=== PATIENT | male | born 1960 | race Caucasian/White ===

== ENCOUNTER 2020-10-22 13:41 | Inpatient (IN) | payer OTHER ==
[2020-10-22] MEDS ORDERED: LORazepam 2 MG/ML INJ IV STA (14:14)
--- NOTE | 2020-10-22 14:24 | ED ---
General Adult HPI - General Chief complaint: Shortness of Breath Stated complaint: Chest Pain/SOB Time Seen by Provider: 10/22/20 13:55 Source: patient, RN notes reviewed, old records reviewed Mode of arrival: wheelchair Limitations: no limitations - History of Present Illness Initial comments: This is a 60-year-old male who presents to the emergency department stating that he has a history of anxiety and he ran out of his Xanax 5 days ago. Patient s tates today he had a panic attack and thought it was 7 difficulty breathing. Patient states he feels much better now that he is calm down. Patient states she's had 5 Shabbir sign the last 5 years and this is what his butt on his anxiety. Patient states he drinks about a pint of vodka a day and a few beers according to him and his . Patient denies any chest pain patient denies palpitations patient denies any recent fever chills or cough per patient denies abdominal pain patient has nausea vomiting diarrhea. - Related Data Home Medications Medication Instructions Recorded Confirmed ALPRAZolam [Xanax] 0.25 mg PO TID 10/22/20 10/22/20 Citalopram Hydrobromide [CeleXA] 20 mg PO DAILY 10/22/20 10/22/20 HYDROcodone/APAP 7.5-325MG [[place] 1 tab PO QID 10/22/20 10/22/20 7.5-325] Kratom 2 tab PO DAILY PRN 10/22/20 10/22/20 Previous Rx's Medication Instructions Recorded QUEtiapine [SEROquel] 50 mg PO HS #30 tab 07/12/16 Allergies Allergy/AdvReac Type Severity Reaction Status Date / Time No Known Allergies Allergy Verified 10/22/20 14:58 Review of Systems ROS Statement: Those systems with pertinent positive or pertinent negative responses have been documented in the HPI. ROS Other: All systems not noted in ROS Statement are negative. Past Medical History Past Medical History: Musculoskeletal Disorder Additional Past Medical History / Comment(s): alcoholism, chronic low back pain- herniated discs and scoliosis, bilateral shoulder pain History of Any Multi-Drug Resistant Organisms: None Reported Past Surgical History: Orthopedic Surgery Additional Past Surgical History / Comment(s): R ankle fx with surgical repair- pin in and out, back injections at [facility]. Past Anesthesia/Blood Transfusion Reactions: No Reported Reaction Additional Past Anesthesia/Blood Transfusion Reaction / Comment(s): Pt has never received blood. Past Psychological History: Anxiety, Depression Smoking Status: Never smoker Past Alcohol Use History: Daily, Heavy Past Drug Use History: None Reported - Past Family History Father Family Medical History: No Reported History Additional Family Medical History / Comment(s): Father is 86yrs old and healthy Mother Family Medical History: Cancer Additional Family Medical History / Comment(s): Mother at age 64yrs of pancreatic cancer. General Exam - General Exam Comments Initial Comments: GENERAL: Patient is well-developed and well-nourished. Patient is nontoxic and well- hydrated and is in mild distress. ENT: Neck is soft and supple. No significant lymphadenopathy is noted. Oropharynx is clear. Moist mucous membranes. Neck has full range of motion without eliciting any pain. EYES: The sclera were anicteric and conjunctiva were pink and moist. Extraocular movements were intact and pupils were equal round and reactive to light. Eyelids were unremarkable. PULMONARY: Unlabored respirations. Good breath sounds bilaterally. No audible rales rhonchi or wheezing was noted. CARDIOVASCULAR: There is a regular rate and rhythm without any murmurs gallops or rubs. ABDOMEN: Soft and nontender with normal bowel sounds. SKIN: Skin is clear with no lesions or rashes and otherwise unremarkable. NEUROLOGIC: Patient is alert and oriented x3. Cranial nerves II through XII are grossly intact. Motor and sensory are also intact. Normal speech, volume and content. Symmetrical smile. MUSCULOSKELETAL: Normal extremities with adequate strength and full range of motion. No lower extremity swelling or edema. No calf tenderness. LYMPHATICS: No significant lymphadenopathy is noted PSYCHIATRIC: Patient is mildly anxious Limitations: no limitations Course Vital Signs 10/22/20 13:53 Temperature 98.8 F Pulse Rate 86 Respiratory 20 Rate Blood Pressure 136/95 O2 Sat by Pulse 96 Oximetry Medical Decision Making - Medical Decision Making EKG shows normal sinus rhythm at 81 bpm SD interval 266 dresses 96 QT interval 392 QTC is 455 per patient's EKG shows no ST segment elevation or depression. Patient's alcohol came back at a very high level and so I spoke with the family himself and Dr. Wheat everybody's agreement. The patient overnight and try to find a rehab facility for tomorrow. Chest x-ray shows no acute abnormality. Jarret accept the patient admitted the patient wrote admitting orders - Lab Data Result diagrams: 10/22/20 14:25 10/22/20 14:25 Lab Results 10/22/20 10/22/20 Range/Units 14:25 14:25 WBC 6.0 (3.8-10.6) k/uL RBC 4.89 (4.30-5.90) m/uL Hgb 15.8 (13.0-17.5) gm/dL Hct 46.5 (39.0-53.0) % MCV 95.1 (80.0-100.0) fL MCH 32.4 (25.0-35.0) pg MCHC 34.1 (31.0-37.0) g/dL RDW 14.6 (11.5-15.5) % Plt Count 201 (150-450) k/uL MPV 6.6 Neutrophils % 61 % Lymphocytes % 29 % Monocytes % 6 % Eosinophils % 0 % Basophils % 0 % Neutrophils # 3.7 (1.3-7.7) k/uL Lymphocytes # 1.8 (1.0-4.8) k/uL Monocytes # 0.4 (0-1.0) k/uL Eosinophils # 0.0 (0-0.7) k/uL Basophils # 0.0 (0-0.2) k/uL Sodium 144 (137-145) mmol/L Potassium 4.2 (3.5-5.1) mmol/L Chloride 105 (98-107) mmol/L Carbon Dioxide 22 (22-30) mmol/L Anion Gap 17 mmol/L BUN 15 (9-20) mg/dL Creatinine 0.77 (0.66-1.25) mg/dL Est GFR (CKD-EPI)AfAm >90 (>60 ml/min/1.73 sqM) Est GFR (CKD-EPI)NonAf >90 (>60 ml/min/1.73 sqM) Glucose 101 H (74-99) mg/dL Calcium 9.2 (8.4-10.2) mg/dL Total Bilirubin 0.6 (0.2-1.3) mg/dL AST 37 (17-59) U/L ALT 17 (4-49) U/L Alkaline Phosphatase 74 (38-126) U/L Total Protein 8.3 H (6.3-8.2) g/dL Albumin 4.6 (3.5-5.0) g/dL Serum Alcohol 324 H* mg/dL Disposition Clinical Impression: Alcohol intoxication Disposition: ADMITTED IP TO THIS HOSP Referrals: Ruperto Wheat MD [Primary Care Provider] - 1-2 days Time of Disposition: 15:19
[2020-10-22 14:33] LABS: Basophils % (A) 0 %; Eosinophils % (A) 0 %; HCT 46.5 % (39.0-53.0); HGB 15.8 gm/dL (13.0-17.5); Lymphocytes # (A) 1.8 k/uL (1.0-4.8); Lymphocytes % (A) 29 %; MCH 32.4 pg (25.0-35.0); MCHC 34.1 g/dL (31.0-37.0); MCV 95.1 fL (80.0-100.0); Mean Platelet Volume 6.6; Monocytes # (A) 0.4 k/uL (0-1.0); Monocytes % (A) 6 %; Neutrophils # (A) 3.7 k/uL (1.3-7.7); Neutrophils % (A) 61 %; Platelet Count 201 k/uL (150-450); RBC 4.89 m/uL (4.30-5.90); RDW 14.6 % (11.5-15.5)
--- NOTE | 2020-10-22 14:33 | XR ---
EXAMINATION TYPE: XR chest 2V DATE OF EXAM: 10/22/2020 COMPARISON: NONE HISTORY: JANY and chronic cough. TECHNIQUE: Frontal and lateral views of the chest are obtained. FINDINGS: There is reticular interstitial changes bilaterally. No pleural effusion or pneumothorax seen. The cardiac silhouette size is within normal limits. The osseous structures are intact. IMPRESSION: As above. Findings favor chronic parenchymal fibrotic changes. Areas of acute infiltrate difficult to entirely exclude in the lung bases. Correlation with old outside chest x-ray would be e xtremely beneficial.
[2020-10-22 14:42] LABS: ALT 17 U/L (4-49); AST 37 U/L (17-59); African American GFR (CKD) >90 (>60 ml/min/1.73 sqM); Albumin 4.6 g/dL (3.5-5.0); Alkaline Phosphatase 74 U/L (38-126); Blood Urea Nitrogen 15 mg/dL (9-20); Calcium 9.2 mg/dL (8.4-10.2); Carbon Dioxide 22 mmol/L (22-30); Chloride 105 mmol/L (98-107); Glucose 101 mg/dL (74-99); Non-African American GFR(CKD) >90 (>60 ml/min/1.73 sqM); Total Bilirubin 0.6 mg/dL (0.2-1.3); Total Protein 8.3 g/dL (6.3-8.2)
[2020-10-22 14:52] LABS: Potassium 4.2 mmol/L (3.5-5.1)
[2020-10-22 15:03] LABS: Alcohol 324 mg/dL
[2020-10-22 15:08] LABS: Anion Gap 17 mmol/L; Sodium 144 mmol/L (137-145)
[2020-10-22] MEDS ORDERED: SODIUM CHLORIDE 0.9% 1,000 ML IV STA (15:18)
[2020-10-22] MEDS ORDERED: LORazepam 2 MG/ML INJ IV PRN (15:20)
[2020-10-22] MEDS ORDERED: THIAMINE 100 MG/ML 2 ML VIAL IM STA (15:20)
[2020-10-22] MEDS: LORazepam 2 MG/ML INJ IV PRN ×4 (15:55→22:31)
[2020-10-22] MEDS: SODIUM CHLORIDE 0.9% 1,000 ML IV ONE ×2 (15:59→16:46)
[2020-10-22] MEDS: THIAMINE 100 MG TAB PO SCH (17:35)
[2020-10-22 18:06] LABS: Basophils % (A) 1 %; Eosinophils % (A) 1 %; HCT 40.7 % (39.0-53.0); HGB 14.3 gm/dL (13.0-17.5); Lymphocytes # (A) 1.8 k/uL (1.0-4.8); Lymphocytes % (A) 30 %; MCH 33.5 pg (25.0-35.0); MCHC 35.1 g/dL (31.0-37.0); MCV 95.5 fL (80.0-100.0); Mean Platelet Volume 6.7; Monocytes # (A) 0.3 k/uL (0-1.0); Monocytes % (A) 6 %; Neutrophils # (A) 3.5 k/uL (1.3-7.7); Neutrophils % (A) 60 %; Platelet Count 162 k/uL (150-450); RBC 4.26 m/uL (4.30-5.90); RDW 14.3 % (11.5-15.5); WBC 5.8 k/uL (3.8-10.6)
[2020-10-23] MEDS: LORazepam 2 MG/ML INJ IV PRN ×8 (01:00→21:29)
[2020-10-23 07:04] LABS: HCT 41.3 % (39.0-53.0); HGB 14.1 gm/dL (13.0-17.5); MCH 32.9 pg (25.0-35.0); MCHC 34.1 g/dL (31.0-37.0); MCV 96.6 fL (80.0-100.0); Mean Platelet Volume 6.7; Platelet Count 190 k/uL (150-450); RBC 4.28 m/uL (4.30-5.90); RDW 14.2 % (11.5-15.5)
[2020-10-23] MEDS: THIAMINE 100 MG TAB PO SCH ×2 (08:13→17:36)
[2020-10-23] MEDS: chlordiazePOXIDE 25 MG CAP PO SCH ×3 (10:43→21:22)
[2020-10-23 14:48] VITALS: BMI 23.4
[2020-10-23] MEDS: METOPROLOL TARTRATE 50 MG TAB PO SCH (23:01)
[2020-10-24] MEDS: LORazepam 2 MG/ML INJ IV PRN ×8 (00:14→22:11)
[2020-10-24] MEDS: chlordiazePOXIDE 25 MG CAP PO SCH ×3 (07:54→21:12)
[2020-10-24] MEDS: METOPROLOL TARTRATE 50 MG TAB PO SCH (07:54)
[2020-10-24] MEDS: THIAMINE 100 MG TAB PO SCH ×2 (07:54→16:17)
--- NOTE | 2020-10-24 08:14 | P.PN ---
Subjective Principal diagnosis: Alcohol withdrawal The patient is continuing to need Librium and Ativan for alcohol withdrawal. We have given him the appropriate information to call [facility]. Objective - Vital Signs Vital signs: Vital Signs Temp 97.7 F 10/24/20 04:29 Pulse 75 10/24/20 04:29 Resp 18 10/24/20 04:29 BP 163/99 10/24/20 04:29 Pulse Ox 97 10/24/20 04:29 Intake & Output 10/23/20 10/24/20 10/24/20 18:59 06:59 18:59 Intake Total 350 Output Total 675 Balance -675 350 Weight 69.853 kg Intake: Oral 350 Output: Urine 675 Other: Voiding Method Urinal # Voids 1 - Constitutional General appearance: Present: average body habitus - EENT Eyes: Absent: abnormal pupil - Neck Neck: Absent: lymphadenopathy - Cardiovascular Rhythm: regular Heart sounds: normal: S1, S2 Abnormal Heart Sounds: Absent: S3 Gallop - Gastrointestinal General gastrointestinal: Present: soft. Absent: tenderness - Labs CBC & Chem 7: 10/23/20 06:30 10/22/20 14:25 Assessment and Plan (1) Opiate dependence Current Visit: Yes Status: Acute Code(s): F11.20 - OPIOID DEPENDENCE, UNCOMPLICATED SNOMED Code(s): 89566728 (2) Alcoholic intoxication Current Visit: Yes Status: Acute Code(s): F10.129 - ALCOHOL ABUSE WITH INTOXICATION, UNSPECIFIED SNOMED Code(s): 12060117 (3) Alcohol abuse Current Visit: No Status: Acute Code(s): F10.10 - ALCOHOL ABUSE, UNCOMPLIC ATED SNOMED Code(s): 65458973 (4) Alcohol withdrawal Current Visit: No Status: Acute Code(s): F10.239 - ALCOHOL DEPENDENCE WITH WITHDRAWAL, UNSPECIFIED SNOMED Code(s): 805470409 (5) Depression Current Visit: No Status: Acute Code(s): F32.9 - MAJOR DEPRESSIVE DISORDER, SINGLE EPISODE, UNSPECIFIED SNOMED Code(s): 84633367 Plan: Placed on appropriate withdrawal protocol. Supplement with B12 and folate. Fluid hydration. Possible transfer to inpatient alcoholic rehab. Consult discharge planning.
--- NOTE | 2020-10-24 08:16 | P.PN ---
Subjective Principal diagnosis: Alcohol withdrawal The patient is continuing to need Librium and Ativan for alcohol withdrawal. We have given him the appropriate information to call [place]. Objective - Vital Signs Vital signs: Vital Signs Temp 97.7 F 10/24/20 04:29 Pulse 75 10/24/20 04:29 Resp 18 10/24/20 04:29 BP 163/99 10/24/20 04:29 Pulse Ox 97 10/24/20 04:29 Intake & Output 10/23/20 10/24/20 10/24/20 18:59 06:59 18:59 Intake Total 350 Output Total 675 Balance -675 350 Weight 69.853 kg Intake: Oral 350 Output: Urine 675 Other: Voiding Method Urinal # Voids 1 - Constitutional General appearance: Present: average body habitus - EENT Eyes: Absent: abnormal pupil - Neck Neck: Absent: lymphadenopathy - Respiratory Respiratory: bilateral: CTA - Cardiovascular Rhythm: regular Abnormal Heart Sounds: Absent: S3 Gallop - Gastrointestinal General gastrointestinal: Present: soft. Absent: tenderness - Labs CBC & Chem 7: 10/23/20 06:30 10/22/20 14:25 Assessment and Plan (1) Opiate dependence Current Visit: Yes Status: Acute Code(s): F11.20 - OPIOID DEPENDENCE, U NCOMPLICATED SNOMED Code(s): 08209309 (2) Alcoholic intoxication Current Visit: Yes Status: Acute Code(s): F10.129 - ALCOHOL ABUSE WITH INTOXICATION, UNSPECIFIED SNOMED Code(s): 74863964 (3) Alcohol abuse Current Visit: No Status: Acute Code(s): F10.10 - ALCOHOL ABUSE, UNCOMPLICATED SNOMED Code(s): 41161977 (4) Alcohol withdrawal Current Visit: No Status: Acute Code(s): F10.239 - ALCOHOL DEPENDENCE WITH WITHDRAWAL, UNSPECIFIED SNOMED Code(s): 045465985 (5) Depression Current Visit: No Status: Acute Code(s): F32.9 - MAJOR DEPRESSIVE DISORDER, SINGLE EPISODE, UNSPECIFIED SNOMED Code(s): 37738383 Plan: Placed on appropriate withdrawal protocol. Supplement with B12 and folate. Fluid hydration. Possible transfer to inpatient alcoholic rehab. Consult discharge planning. Time with Patient: Less than 30
[2020-10-24] MEDS: cloNIDine HCL 0.1 MG TAB PO SCH ×2 (08:44→21:13)
[2020-10-24] MEDS: CITALOPRAM HYDROBROMIDE 20 MG TAB PO SCH (08:45)
[2020-10-24] MEDS: DILTIAZEM CD 180 MG CAP.ER.24H PO SCH (08:45)
[2020-10-24 19:56] LABS: Glucose,Whole Blood 134 mg/dL (75-99)
[2020-10-25] MEDS: LORazepam 2 MG/ML INJ IV PRN ×8 (00:40→23:57)
[2020-10-25] MEDS: THIAMINE 100 MG TAB PO SCH ×2 (07:19→16:50)
[2020-10-25] MEDS: chlordiazePOXIDE 25 MG CAP PO SCH ×3 (08:24→23:04)
[2020-10-25] MEDS: cloNIDine HCL 0.1 MG TAB PO SCH ×2 (08:25→23:04)
[2020-10-25] MEDS: DILTIAZEM CD 180 MG CAP.ER.24H PO SCH (08:25)
[2020-10-25] MEDS: CITALOPRAM HYDROBROMIDE 20 MG TAB PO SCH (08:25)
--- NOTE | 2020-10-25 11:19 | P.PN ---
Subjective She still having withdrawal symptoms does have some confusion unsure whether this is acute or chronic. Constitutional: Denied any fatigue denied any fever. Cardio vascular: denied any chest pain, palpitations Gastrointestinal denied any nausea vomiting Pulmonary: Denied any shortness of breath cough Neurologic denied any new focal deficits All inpatient medications were reviewed and appropriate changes in these medications as dictated in the interval history and assessment and plan. Objective - Vital Signs Vital signs: Vital Signs Temp 97.9 F 10/25/20 04:36 Pulse 78 10/25/20 04:36 Resp 12 10/25/20 04:36 BP 122/78 10/25/20 04:36 Pulse Ox 98 10/25/20 04:36 Intake & Output 10/24/20 10/25/20 10/25/20 18:59 06:59 18:59 Output Total 4 0 Balance -4 0 Output: Urine 4 Stool 0 Other: Voiding Method Urinal Urinal # Voids 1 # Bowel Movements 1 - Exam PHYSICAL EXAMINATION: GENERAL: The patient is alert and oriented x3, not in any acute distress. Patient does have significant tremor. HEENT: Pupils are round and equally reacting to light. EOMI. No scleral icterus. No conjunctival pallor. Normocephalic, atraumatic. No pharyngeal erythema. No thyromegaly. CARDIOVASCULAR: S1 and S2 present. No murmurs, rubs, or gallops. PULMONARY: Chest is clear to auscultation, no wheezing or crackles. ABDOMEN: Soft, nontender, nondistended, normoactive bowel sounds. No palpable organomegaly. MUSCULOSKELETAL: No joint swelling or deformity. EXTREMITIES: No cyanosis, clubbing, or pedal edema. NEUROLOGICAL: Gross neurological examination did not reveal any focal deficits. SKIN: No rashes. - Labs CBC & Chem 7: 10/23/20 06:30 10/22/20 14:25 Labs: Abnormal Lab Results - Last 24 Hours (Table) 10/24/20 Range/Units 19:51 POC Glucose (mg/dL) 134 H (75-99) mg/dL Assessment and Plan Plan: -All call intoxication, alcohol abuse: Patient is on all call withdrawal precautions at this time patient is still having significant withdrawals -Opiate dependence -Depression 5. Gastroesophageal reflux disease
[2020-10-25] MEDS: FAMOTIDINE 20 MG TAB PO SCH (20:47)
[2020-10-26] MEDS: LORazepam 2 MG/ML INJ IV PRN ×7 (03:50→23:27)
[2020-10-26] MEDS: THIAMINE 100 MG TAB PO SCH ×2 (07:12→16:48)
[2020-10-26] MEDS: CITALOPRAM HYDROBROMIDE 20 MG TAB PO SCH (08:55)
[2020-10-26] MEDS: FAMOTIDINE 20 MG TAB PO SCH ×2 (08:55→21:08)
[2020-10-26] MEDS: DILTIAZEM CD 180 MG CAP.ER.24H PO SCH (08:56)
[2020-10-26] MEDS: chlordiazePOXIDE 25 MG CAP PO SCH ×3 (08:56→21:29)
[2020-10-26] MEDS: cloNIDine HCL 0.1 MG TAB PO SCH ×2 (08:56→21:08)
--- NOTE | 2020-10-26 13:40 | P.PN ---
Subjective She still having withdrawal symptoms does have some confusion unsure whether this is acute or chronic. 10/26/2020 Patient is still requiring Ativan every 4 hours minimal to be monitored for 1 more night possibility of discharge tomorrow. Constitutional: Denied any fatigue denied any fever. Cardio vascular: denied any chest pain, palpitations Gastrointestinal denied any nausea vomiting Pulmonary: Denied any shortness of breath cough Neurologic denied any new focal deficits All inpatient medications were reviewed and appropriate changes in these medications as dictated in the interval history and assessment and plan. Objective - Vital Signs Vital signs: Vital Signs Temp 97.8 F 10/26/20 05:51 Pulse 78 10/26/20 05:51 Resp 16 10/26/20 05:51 BP 107/70 10/26/20 05:51 Pulse Ox 96 10/26/20 05:51 Intake & Output 10/25/20 10/26/20 10/26/20 18:59 06:59 18:59 Intake Total 200 240 Output Total 0 0 Balance 0 200 240 Intake: Oral 200 240 Output: Stool 0 0 Other: Voiding Method Urinal Urinal Urinal # Voids 2 2 - Exam PHYSICAL EXAMINATION: GENERAL: The patient is alert and oriented x3, not in any acute distress. Patient does have significant tremor. HEENT: Pupils are round and equally reacting to light. EOMI. No scleral icterus. No conjunctival pallor. Normocephalic, atraumatic. No pharyngeal erythema. No thyromegaly. CARDIOVASCULAR: S1 and S2 present. No murmurs, rubs, or gallops. PULMONARY: Chest is clear to auscultation, no wheezing or crackles. ABDOMEN: Soft, nontender, nondistended, normoactive bowel sounds. No palpable organomegaly. MUSCULOSKELETAL: No joint swelling or deformity. EXTREMITIES: No cyanosis, clubbing, or pedal edema. NEUROLOGICAL: Gross neurological examination did not reveal any focal deficits. SKIN: No rashes. - Labs CBC & Chem 7: 10/23/20 06:30 10/22/20 14:25 Assessment and Plan Plan: -All call intoxication, alcohol abuse: Patient is on alcohol withdrawal precautions at this time patient is still having significant withdrawals -Opiate dependence -Depression 5. Gastroesophageal reflux disease
[2020-10-27] MEDS: LORazepam 2 MG/ML INJ IV PRN ×3 (02:40→12:48)
[2020-10-27] MEDS: chlordiazePOXIDE 25 MG CAP PO SCH ×3 (07:57→20:01)
[2020-10-27] MEDS: CITALOPRAM HYDROBROMIDE 20 MG TAB PO SCH (07:57)
[2020-10-27] MEDS: FAMOTIDINE 20 MG TAB PO SCH ×2 (07:57→20:01)
[2020-10-27] MEDS: DILTIAZEM CD 180 MG CAP.ER.24H PO SCH (07:57)
[2020-10-27] MEDS: THIAMINE 100 MG TAB PO SCH ×2 (07:57→17:09)
[2020-10-27] MEDS: cloNIDine HCL 0.1 MG TAB PO SCH ×2 (07:58→20:01)
--- NOTE | 2020-10-27 08:24 | P.PN ---
Subjective Principal diagnosis: Alcohol withdrawal The patient is here for alcohol withdrawal. He still has some tremors. We will hold Ativan and see how he does. He continues to be on Librium. Objective - Vital Signs Vital signs: Vital Signs Temp 97.9 F 10/27/20 04:24 Pulse 79 10/27/20 04:24 Resp 18 10/27/20 04:24 BP 113/78 10/27/20 04:24 Pulse Ox 98 10/27/20 04:24 Intake & Output 10/26/20 10/27/20 10/27/20 18:59 06:59 18:59 Intake Total 540 360 Output Total 0 0 Balance 540 360 Intake: Oral 540 360 Output: Stool 0 0 Other: Voiding Method Urinal Urinal Toilet Urinal # Voids 2 1 - Constitutional General appearance: Present: average body habitus - EENT Eyes: Absent: abnormal pupil - Neck Neck: Absent: lymphadenopathy - Respiratory Respiratory: bilateral: CTA - Cardiovascular Rhythm: regular Heart sounds: normal: S1, S2 Abnormal Heart Sounds: Absent: S3 Gallop - Gastrointestinal General gastrointestinal: Present: soft. Absent: tenderness - Psychiatric Psychiatric: Present: A&O x's 3 - Labs CBC & Chem 7: 10/23/20 06:30 10/22/20 14:25 Assessment and Plan (1) Opiate dependence Current Visit: Yes Status: Acute Code(s): F11.20 - OPIOID DEPENDENCE, UNCOMPLICATED SNOMED Code(s): 50249664 (2) Alcoholic intoxication Current Visit: Yes Status: Acute Code(s): F10.129 - ALCOHOL ABUSE WITH INTOXICATION, UNSPECIFIED SNOMED Code(s): 14506117 (3) Alcohol abuse Current Visit: No Status: Acute Code(s): F10.10 - ALCOHOL ABUSE, UNCOMPLICATED SNOMED Code(s): 41632037 (4) Alcohol withdrawal Current Visit: No Status: Acute Code(s): F10.239 - ALCOHOL DEPENDENCE WITH WITHDRAWAL, UNSPECIFIED SNOMED Code(s): 783900843 (5) Depression Current Visit: No Status: Acute Code(s): F32.9 - MAJOR DEPRESSIVE DISORDER, SINGLE EPISODE, UNSPECIFIED SNOMED Code(s): 37212718 Plan: Placed on appropriate withdrawal protocol. Hopefully wean off of Ativan today. Anticipate discharge in next 24-48 hours..
[2020-10-28] MEDS: chlordiazePOXIDE 25 MG CAP PO SCH ×3 (01:06→12:17)
[2020-10-28 05:30] VITALS: RESP 16
[2020-10-28] MEDS: CITALOPRAM HYDROBROMIDE 20 MG TAB PO SCH (07:40)
[2020-10-28] MEDS: THIAMINE 100 MG TAB PO SCH (07:40)
[2020-10-28] MEDS: FAMOTIDINE 20 MG TAB PO SCH (07:40)
[2020-10-28] MEDS: cloNIDine HCL 0.1 MG TAB PO SCH (07:40)
[2020-10-28] MEDS: DILTIAZEM CD 180 MG CAP.ER.24H PO SCH (07:40)
--- NOTE | 2020-10-28 08:39 | P.DS ---
Providers Date of admission: 10/22/20 15:20 Attending physician: Ruperto Wheat Primary care physician: Ruperto Wheat - Discharge Diagnosis(es) (1) Opiate dependence Current Visit: Yes Status: Acute (2) Alcoholic intoxication Current Visit: Yes Status: Acute (3) Alcohol abuse Current Visit: No Status: Acute (4) Alcohol withdrawal Current Visit: No Status: Acute (5) Depression Current Visit: No Status: Acute Hospital Course: This discharge summary 60-year-old white male essentially admitted for alcoholic withdrawal. The patient was stabilized with appropriate treatment and sent home on Librium. We will stop opiates and Xanax at this time and continue appropriate blood pressure medication. The patient significant elevation of blood pressure I do suspect this is from withdrawal and we will wean and his next visit. However, I have suggested appropriate inpatient rehab for his continued alcoholism. Unfortunately, we cannot do this for him at this time due to his insurance restrictions. The patient will be discharged in stable condition to follow-up with me in 1-2 days. Patient Condition at Discharge: Stable Plan - Discharge Summary Discharge Rx Participant: No New Discharge Prescriptions: New Diltiazem Cd [Cardizem CD] 180 mg PO DAILY #30 cap.er.24h cloNIDine HCL [Catapres] 0.1 mg PO BID #60 tab chlordiazePOXIDE HCl [Librium] 50 mg PO TID #90 cap Famotidine [Pepcid] 20 mg PO BID #60 tab Thiamine [Vitamin B-1] 100 mg PO BID-W/MEALS #60 tab Continue Citalopram Hydrobromide [CeleXA] 20 mg PO DAILY Discontinued QUEtiapine [SEROquel] 50 mg PO HS #30 tab HYDROcodone/APAP 7.5-325MG [[place] 7.5-325] 1 tab PO QID ALPRAZolam [Xanax] 0.25 mg PO TID Kratom 2 tab PO DAILY PRN PRN Reason: Pain Discharge Medication List Citalopram Hydrobromide [CeleXA] 20 mg PO DAILY 10/22/20 [History] Diltiazem Cd [Cardizem CD] 180 mg PO DAILY #30 cap.er.24h 10/28/20 [Rx] Famotidine [Pepcid] 20 mg PO BID #60 tab 10/28/20 [Rx] Thiamine [Vitamin B-1] 100 mg PO BID-W/MEALS #60 tab 10/28/20 [Rx] chlordiazePOXIDE HCl [Librium] 50 mg PO TID #90 cap 10/28/20 [Rx] cloNIDine HCL [Catapres] 0.1 mg PO BID #60 tab 10/28/20 [Rx] Follow up Appointment(s)/Referral(s): Ruperto Wheat MD [Primary Care Provider] - 1-2 days Discharge Disposition: HOME SELF-CARE
[2020-10-28 12:22] VITALS: BP 118/82; PULSE 83; TEMP 97.9
== END 2020-10-28 15:47 | disposition home or self-care (01) | DRG 897 ==
LOC: EC 13:41 → 5NMEDONC 15:20
PROVIDERS: ADMIT Family Medicine; ATTEND Family Medicine
DX: F10.229 Alcohol dependence with intoxication, unspecified (principal); F11.20 Opioid dependence, uncomplicated; F32.9 Major depressive disorder, single episode, unspecified; F41.0 Panic disorder [episodic paroxysmal anxiety]; Y90.8 Blood alcohol level of 240 mg/100 ml or more; M41.9 Scoliosis, unspecified; F41.9 Anxiety disorder, unspecified; Z80.0 Family history of malignant neoplasm of digestive organs; Z79.899 Other long term (current) drug therapy; Z98.890 Other specified postprocedural states
CPT/HCPCS: 36415; 71046; 80053; 80320; 82140; 85025; 85027; 93005; 96372; 96374; 96376; 99285

== ENCOUNTER 2020-11-30 22:47 | Emergency (ER) | payer OTHER ==
[2020-11-30 22:52] VITALS: RESP 18
[2020-11-30] MEDS ORDERED: BACITRACIN OINT 1 EACH PACKET TOPICAL ONE (23:14)
[2020-11-30] MEDS ORDERED: THIAMINE 100 MG/ML 2 ML VIAL IM STA (23:14)
[2020-11-30] MEDS ORDERED: LORazepam 2 MG/ML INJ IV PRN ×3 (23:14)
[2020-11-30] MEDS ORDERED: LORazepam 2 MG/ML INJ IM PRN ×2 (23:20)
[2020-11-30] MEDS: THIAMINE 100 MG TAB PO SCH (23:26)
[2020-11-30] MEDS: LORazepam 2 MG/ML INJ IM PRN (23:51)
[2020-12-01 00:23] LABS: Basophils # (A) 0.1 k/uL (0-0.2); Basophils % (A) 0 %; Eosinophils # (A) 0.1 k/uL (0-0.7); Eosinophils % (A) 1 %; HCT 46.9 % (39.0-53.0); HGB 15.8 gm/dL (13.0-17.5); Lymphocytes # (A) 2.1 k/uL (1.0-4.8); Lymphocytes % (A) 13 %; MCH 31.9 pg (25.0-35.0); MCHC 33.6 g/dL (31.0-37.0); Mean Platelet Volume 6.7; Monocytes % (A) 6 %; Neutrophils # (A) 12.3 k/uL (1.3-7.7); Neutrophils % (A) 78 %; RBC 4.94 m/uL (4.30-5.90); WBC 15.8 k/uL (3.8-10.6)
[2020-12-01] MEDS ORDERED: ONDANSETRON 4 MG TAB PO PRN (00:38)
[2020-12-01 00:42] LABS: Platelet Count 495 k/uL (150-450)
[2020-12-01 01:04] LABS: Appearance,Urine Clear (Clear); Bilirubin,Urine Negative (Negative); Blood,Urine Negative (Negative); Color,Urine Yellow; Glucose,Urine (UA) Negative (Negative); Ketones,Urine Trace (Negative); Leukocyte Esterase,Urine Negative (Negative); Nitrite,Urine Negative (Negative); PH, Urine 5.5 (5.0-8.0); Protein,Urine Trace (Negative); Specific Gravity,Urine 1.018 (1.001-1.035); Urobilinogen,Urine <2.0 mg/dL (<2.0)
[2020-12-01 01:18] LABS: ALT 9 U/L (4-49); AST 26 U/L (17-59); African American GFR (CKD) >90 (>60 ml/min/1.73 sqM); Albumin 4.5 g/dL (3.5-5.0); Alkaline Phosphatase 91 U/L (38-126); Anion Gap 17 mmol/L; Blood Urea Nitrogen 13 mg/dL (9-20); Calcium 9.6 mg/dL (8.4-10.2); Carbon Dioxide 19 mmol/L (22-30); Chloride 95 mmol/L (98-107); Glucose 109 mg/dL (74-99); Magnesium 1.9 mg/dL (1.6-2.3); Non-African American GFR(CKD) >90 (>60 ml/min/1.73 sqM); Sodium 131 mmol/L (137-145); Total Bilirubin 0.5 mg/dL (0.2-1.3); Total Protein 7.9 g/dL (6.3-8.2)
--- NOTE | 2020-12-01 01:29 | ED ---
Psych HPI - General Source: patient, family Mode of arrival: ambulatory <Chasity Sullivan - Last Filed: 12/01/20 02:04> <Giles Llanes - Last Filed: 12/01/20 03:40> - General Chief Complaint: Psychiatric Symptoms Stated Complaint: Mental Health Time Seen by Provider: 11/30/20 22:54 - History of Present Illness Initial Comments: 6-year-old male presenting today for chief complaint of suicidal ideation. Patient states he has had a rough year and has been heavily drinking for the past few weeks. He states he was feeling suicidal today and try to cut his left wrist postop by his daughter. Patient states "I didn't get very far". Patient states he has been drinking so heavily and feels like he would withdraw if he begins to sober up. Patient states he has mild tremors he denies any hallucinations he denies any nausea vomiting. Patient denies chest pain, dyspnea, leg swelling, fevers, diarrhea, aches we should weakness sensation deficits are additional physical complaints upon arrival patient appears nontoxic distress -Tetanus UTD per patient. (Chasity Sullivan) - Related Data Home Medications Medication Instructions Recorded Confirmed Citalopram Hydrobromide [CeleXA] 20 mg PO DAILY 10/22/20 10/22/20 Previous Rx's Medication Instructions Recorded Diltiazem Cd [Cardizem CD] 180 mg PO DAILY #30 cap.er.24h 10/28/20 Famotidine [Pepcid] 20 mg PO BID #60 tab 10/28/20 Thiamine [Vitamin B-1] 100 mg PO BID-W/MEALS #60 tab 10/28/20 chlordiazePOXIDE HCl [Librium] 50 mg PO TID #90 cap 10/28/20 cloNIDine HCL [Catapres] 0.1 mg PO BID #60 tab 10/28/20 Allergies Allergy/AdvReac Type Severity Reaction Status Date / Time No Known Allergies Allergy Verified 11/30/20 22:52 Review of Systems ROS Other: All systems not noted in ROS Statement are negative. <Chasity Sullivan - Last Filed: 12/01/20 02:04> ROS Other: All systems not noted in ROS Statement are negative. <Giles Llanes - Last Filed: 12/01/20 03:40> ROS Statement: Those systems with pertinent positive or pertinent negative responses have been documented in the HPI. Past Medical History Past Medical History: GERD/Reflux, Musculoskeletal Disorder Additional Past Medical History / Comment(s): ETOH abuse, DTs, chronic low back pain/herniated discs/scoliosis/spinal stenosis History of Any Multi-Drug Resistant Organisms: None Reported Past Surgical History: Orthopedic Surgery Additional Past Surgical History / Comment(s): R ankle fx with surgical repair- pin in and out, back injections at [facility]. Past Anesthesia/Blood Transfusion Reactions: No Reported Reaction Additional Past Anesthesia/Blood Transfusion Reaction / Comment(s): Pt has never received blood. Past Psychological History: Anxiety, Depression Smoking Status: Never smoker - Past Family History Father Family Medical History: Dementia Additional Family Medical History / Comment(s): Father is . Mother Family Medical History: Cancer Additional Family Medical History / Comment(s): Mother at age 64yrs of pancreatic cancer. <NateChasity L - Last Filed: 12/01/20 02:04> General Exam Limitations: no limitations <Chasity Sullivan L - Last Filed: 12/01/20 02:04> - General Exam Comments Initial Comments: General: The patient is awake and alert, in no distress Eye: +3 mm pupils are equal, round and reactive to light, extra-ocular movements are intact. No nystagmus. There is normal conjunctiva bilaterally. No signs of icterus. Ears, nose, mouth and throat: There are moist mucous membranes and no oral lesions. Neck: The neck is supple, there is no tenderness or JVD. Cardiovascular: There is a regular rate and rhythm. No murmur, rub or gallop is appreciated. Respiratory: Lungs are clear to auscultation, respirations are non-labored, breath sounds are equal. No wheezes, stridor, rales, or rhonchi. Gastrointestinal: Soft, non-distended, non-tender abdomen without masses or organomegaly noted. There is no rebound or guarding present. Musculoskeletal: Normal ROM, no tenderness. Strength 5/5. Sensation intact. Radial pulses equal bilaterally 2+. Neurological: A&O x 3. CN II-XII intact, There are no obvious motor or sensory deficits. Coordination appears grossly intact. Speech is normal. Skin: Skin is warm and dry and no rashes. Horizontally oriented lacerations over the ventral aspect of the left wrist, no deep laceration, no bleeding. Psychiatric: Cooperative, flat affect. (Chasity Sullivan) Course <Giles Llanes - Last Filed: 12/01/20 03:40> Vital Signs 11/30/20 12/01/20 22:47 01:55 Temperature 97.9 F Pulse Rate 135 H 114 H Respiratory 18 Rate Blood Pressure 148/103 O2 Sat by Pulse 97 Oximetry - Reevaluation(s) Reevaluation #1: 12/01/20 03:39 Patient medically clear for psychiatric evaluation (Giles Llanes) Reevaluation #2: 12/01/20 03:39 Patient seen eval by psychiatry here in the ER (Giles Llanes) Medical Decision Making - Lab Data Result diagrams: 11/30/20 23:49 11/30/20 23:49 <Chasity Sullivan - Last Filed: 12/01/20 02:04> - Lab Data Result diagrams: 11/30/20 23:49 11/30/20 23:49 <Giles Llanes - Last Filed: 12/01/20 03:40> - Medical Decision Making 60 male seen and evaluated psychiatry here in the ER. Patient given safety plan which she has consented. Patient not homicidal or suicidal currently. Is everyday drinker. Patient can be discharged home (Giles Llanes) - Lab Data Lab Results 11/30/20 11/30/20 12/01/20 Range/Units 23:49 23:49 00:10 WBC 15.8 H (3.8-10.6) k/uL RBC 4.94 (4.30-5.90) m/uL Hgb 15.8 (13.0-17.5) gm/dL Hct 46.9 (39.0-53.0) % MCV 95.0 (80.0-100.0) fL MCH 31.9 (25.0-35.0) pg MCHC 33.6 (31.0-37.0) g/dL RDW 14.0 (11.5-15.5) % Plt Count 495 H D (150-450) k/uL MPV 6.7 Neutrophils % 78 % Lymphocytes % 13 % Monocytes % 6 % Eosinophils % 1 % Basophils % 0 % Neutrophils # 12.3 H (1.3-7.7) k/uL Lymphocytes # 2.1 (1.0-4.8) k/uL Monocytes # 1.0 (0-1.0) k/uL Eosinophils # 0.1 (0-0.7) k/uL Basophils # 0.1 (0-0.2) k/uL Sodium 131 L (137-145) mmol/L Potassium 4.0 (3.5-5.1) mmol/L Chloride 95 L (98-107) mmol/L Carbon Dioxide 19 L (22-30) mmol/L Anion Gap 17 mmol/L BUN 13 (9-20) mg/dL Creatinine 0.80 (0.66-1.25) mg/dL Est GFR (CKD-EPI)AfAm >90 (>60 ml/min/1.73 sqM) Est GFR (CKD-EPI)NonAf >90 (>60 ml/min/1.73 sqM) Glucose 109 H (74-99) mg/dL Calcium 9.6 (8.4-10.2) mg/dL Magnesium 1.9 (1.6-2.3) mg/dL Total Bilirubin 0.5 (0.2-1.3) mg/dL AST 26 (17-59) U/L ALT 9 (4-49) U/L Alkaline Phosphatase 91 (38-126) U/L Total Protein 7.9 (6.3-8.2) g/dL Albumin 4.5 (3.5-5.0) g/dL Urine Color Yellow Urine Appearance Clear (Clear) Urine pH 5.5 (5.0-8.0) Ur Specific [place] 1.018 (1.001-1.035) Urine Protein Trace H (Negative) Urine Glucose (UA) Negative (Negative) Urine Ketones Trace H (Negative) Urine Blood Negative (Negative) Urine Nitrite Negative (Negative) Urine Bilirubin Negative (Negative) Urine Urobilinogen <2.0 (<2.0) mg/dL Ur Leukocyte Esterase Negative (Negative) Urine Opiates Screen Not Detected (NotDetected) Ur Oxycodone Screen Not Detected (NotDetected) Urine Methadone Screen Not Detected (NotDetected) Ur Propoxyphene Screen Not Detected (NotDetected) Ur Barbiturates Screen Not Detected (NotDetected) U Tricyclic Antidepress Not Detected (NotDetected) Ur Phencyclidine Scrn Not Detected (NotDetected) Ur Amphetamines Screen Not Detected (NotDetected) U Methamphetamines Scrn Not Detected (NotDetected) U Benzodiazepines Scrn Detected H (NotDetected) Urine Cocaine Screen Not Detected (NotDetected) U Marijuana (THC) Screen Not Detected (NotDetected) Serum Alcohol 134 mg/dL Disposition <Chasity Sullivan L - Last Filed: 12/01/20 02:04> Is patient prescribed a controlled substance at d/c from ED?: No <Giles Llanes - Last Filed: 12/01/20 03:40> Clinical Impression: Alcoholic intoxication, Alcohol abuse, Depression Disposition: HOME SELF-CARE Condition: Fair Instructions (If sedation given, give patient instructions): Abuse of Alcohol (ED) Referrals: Ruperto Wheat MD [Primary Care Provider] - 1-2 days
[2020-12-01 01:30] LABS: Amphetamine Screen,Urine Not Detected (NotDetected); Barbiturate Screen,Urine Not Detected (NotDetected); Benzodiazepines Screen,Urine Detected (NotDetected); Cocaine Screen,Urine Not Detected (NotDetected); Methadone Screen, Urine Not Detected (NotDetected); Opiate Screen,Urine Not Detected (NotDetected); Oxycodone Screen, Urine Not Detected (NotDetected); Phencyclidine Screen,Urine Not Detected (NotDetected); Tricyclic Antidepressant,Urine Not Detected (NotDetected); Urn Cannabinoid Scrn Not Detected (NotDetected)
[2020-12-01 01:31] LABS: Alcohol 134 mg/dL
[2020-12-01] MEDS: LORazepam 2 MG/ML INJ IM PRN ×2 (01:49→03:58)
[2020-12-01] MEDS ORDERED: LORazepam 1 MG TAB PO STA (03:40)
[2020-12-01 04:11] VITALS: BP 138/88; PULSE 112; TEMP 98
== END 2020-12-01 04:00 | disposition home or self-care (01) ==
LOC: EC 22:47
DX: F32.9 Major depressive disorder, single episode, unspecified (principal); F10.129 Alcohol abuse with intoxication, unspecified; F41.9 Anxiety disorder, unspecified; S61.512A Laceration without foreign body of left wrist, initial encounter; Z79.899 Other long term (current) drug therapy; Y90.9 Presence of alcohol in blood, level not specified; X78.9XXA Intentional self-harm by unspecified sharp object, initial encounter
CPT/HCPCS: 82075; 36415; 93005; 80053; 83735; 85025; 81003; 80306; 80320; 99285; 96372 ×2; J2060 ×2; J3411

== ENCOUNTER → 2020-12-05 | Outpatient (CLI) | payer OTHER ==
--- NOTE | 2020-12-05 10:35 | MR ---
EXAMINATION TYPE: MR shoulder RT wo con DATE OF EXAM: 12/05/2020 COMPARISON: Plain film 11/21/2020 HISTORY: Pain, stiffness right shoulder, impingement syndrome, contusion, injured 3 weeks ago TECHNIQUE: Multiplanar, multisequence imaging of the right shoulder is performed without contrast. FINDINGS: There is motion on the exam, artifact Rotator Cuff: Supraspinatus tendon is scarring and retracted to the level of the acromioclavicular kassandra int Acromioclavicular Joint: Hypertrophic changes are present at the acromioclavicular joint causing mass effect on the supraspinatus tendon. There is a distal acromial spur. Glenohumeral Joint: The shoulder is somewhat high riding and there is some marginal spurring, osteoph ytic change Labrum: Some increased intrasubstance signal along the superior labrum may be due to some degenerativ e fraying Biceps Tendon: Fluid signal is present along the long head of biceps tendon suggesting T no synovitis , some intrasubstance signal may represent a longitudinal tear Bone marrow signal: There are pseudocysts within the humeral head. Other: Fluid signal is present in the subacromial subdeltoid bursa. IMPRESSION: Complete rotator cuff tear with retraction. Osteoarthritis, longitudinal tear may be present along th e long head of biceps tendon, additional findings above
== END | disposition home or self-care (01) ==
LOC: RADMRIMAIN 07:23
PROVIDERS: ATTEND Physician Assistant
DX: M19.011 Primary osteoarthritis, right shoulder (principal); M75.121 Complete rotator cuff tear or rupture of right shoulder, not specified as traumatic; M25.711 Osteophyte, right shoulder; M67.813 Other specified disorders of tendon, right shoulder; M89.311 Hypertrophy of bone, right shoulder; R93.7 Abnormal findings on diagnostic imaging of other parts of musculoskeletal system

== ENCOUNTER 2021-03-25 17:09 | Inpatient (IN) | payer OTHER ==
[2021-03-25] MEDS ORDERED: SODIUM CHLORIDE 0.9% 1,000 ML IV STA (18:29)
[2021-03-25] MEDS ORDERED: LORazepam 2 MG/ML INJ IV STA (18:42)
[2021-03-25 18:44] LABS: Basophils % (A) 1 %; Eosinophils % (A) 0 %; HCT 47.4 % (39.0-53.0); HGB 16.2 gm/dL (13.0-17.5); Lymphocytes # (A) 1.6 k/uL (1.0-4.8); Lymphocytes % (A) 33 %; MCH 33.5 pg (25.0-35.0); MCHC 34.3 g/dL (31.0-37.0); MCV 97.7 fL (80.0-100.0); Monocytes # (A) 0.4 k/uL (0-1.0); Monocytes % (A) 8 %; Neutrophils # (A) 2.7 k/uL (1.3-7.7); Neutrophils % (A) 54 %; Platelet Count 174 k/uL (150-450); RBC 4.85 m/uL (4.30-5.90); RDW 15.2 % (11.5-15.5); WBC 4.9 k/uL (3.8-10.6)
[2021-03-25] MEDS ORDERED: FAMOTIDINE 20 MG/2 ML VIAL IV STA (18:53)
[2021-03-25] MEDS ORDERED: ONDANSETRON 4 MG/2 ML VIAL IVP STA (18:53)
--- NOTE | 2021-03-25 18:54 | ED ---
General Adult HPI - General Chief complaint: Alcohol Stated complaint: ETOH Time Seen by Provider: 03/25/21 18:06 Source: patient, RN notes reviewed Mode of arrival: ambulatory Limitations: no limitations - History of Present Illness Initial comments: Patient is a pleasant 60-year-old male presenting to the emergency Department with complaints of alcohol problems. Patient has been drinking heavily the past few months. Patient is drinking a fifth of alcohol every day or 2. Last alcohol intake was around 4:00 today. Patient is depressed. Patient made suicidal statements yesterday. - Related Data Home Medications Medication Instructions Recorded Confirmed Citalopram Hydrobromide [CeleXA] 40 mg PO DAILY 03/25/21 03/25/21 Ibuprofen [Motrin] 800 mg PO Q8H PRN 03/25/21 03/25/21 QUEtiapine [SEROquel] 50 mg PO HS 03/25/21 03/25/21 Allergies Allergy/AdvReac Type Severity Reaction Status Date / Time No Known Allergies Allergy Verified 03/25/21 19:09 Review of Systems ROS Statement: Those systems with pertinent positive or pertinent negative responses have been documented in the HPI. ROS Other: All systems not noted in ROS Statement are negative. Constitutional: Denies: fever ENT: Denies: ear pain Respiratory: Denies: cough Cardiovascular: Denies: chest pain Endocrine: Denies: fatigue Gastrointestinal: Reports: nausea, other (Decreased appetite). Denies: abdominal pain Genitourinary: Denies: dysuria Musculoskeletal: Denies: back pain Skin: Denies: rash Neurological: Denies: weakness Psychiatric: Reports: depression Past Medical History Past Medical History: GERD/Reflux, Musculoskeletal Disorder Additional Past Medical History / Comment(s): ETOH abuse, DTs, chronic low back pain/herniated discs/scoliosis/spinal stenosis History of Any Multi-Drug Resistant Organisms: None Reported Past Surgical History: Orthopedic Surgery Additional Past Surgical History / Comment(s): R ankle fx with surgical repair- pin in and out, back injections at [facility]. Past Anesthesia/Blood Transfusion Reactions: No Reported Reaction Additional Past Anesthesia/Blood Transfusion Reaction / Comment(s): Pt has never received blood. Past Psychological History: Anxiety, Depression Smoking Status: Never smoker Past Alcohol Use History: Abuse, Daily, Heavy Past Drug Use History: None Reported - Past Family History Father Family Medical History: Dementia Additional Family Medical History / Comment(s): Father is . Mother Family Medical History: Cancer Additional Family Medical History / Comment(s): Mother at age 64yrs of pancreatic cancer. General Exam Limitations: no limitations General appearance: alert, in no apparent distress Head exam: Present: normocephalic Eye exam: Present: normal appearance Neck exam: Present: normal inspection Respiratory exam: Present: normal lung sounds bilaterally Cardiovascular Exam: Present: tachycardia GI/Abdominal exam: Present: soft. Absent: tenderness Extremities exam: Present: normal inspection. Absent: pedal edema, calf tenderness Neurological exam: Present: alert Psychiatric exam: Present: depressed Skin exam: Present: normal color Course Vital Signs 03/25/21 03/25/21 17:19 18:44 Temperature 98.2 F Pulse Rate 116 H 108 H Respiratory 20 18 Rate Blood Pressure 151/94 132/100 O2 Sat by Pulse 96 95 Oximetry Medical Decision Making - Medical Decision Making Patient reevaluated and resting comfortably in bed. Patient and family updated on results and plan. Dr. Wheat paged for admission of his patient. - Lab Data Result diagrams: 03/25/21 18:35 03/25/21 18:35 Lab Results 03/25/21 03/25/21 03/25/21 Range/Units 18:35 18:35 18:35 WBC 4.9 (3.8-10.6) k/uL RBC 4.85 (4.30-5.90) m/uL Hgb 16.2 (13.0-17.5) gm/dL Hct 47.4 (39.0-53.0) % MCV 97.7 (80.0-100.0) fL MCH 33.5 (25.0-35.0) pg MCHC 34.3 (31.0-37.0) g/dL RDW 15.2 (11.5-15.5) % Plt Count 174 (150-450) k/uL MPV 7.0 Neutrophils % 54 % Lymphocytes % 33 % Monocytes % 8 % Eosinophils % 0 % Basophils % 1 % Neutrophils # 2.7 (1.3-7.7) k/uL Lymphocytes # 1.6 (1.0-4.8) k/uL Monocytes # 0.4 (0-1.0) k/uL Eosinophils # 0.0 (0-0.7) k/uL Basophils # 0.0 (0-0.2) k/uL PT 9.5 (9.0-12.0) sec INR 0.9 (<1.2) APTT 21.8 L (22.0-30.0) sec Sodium 139 (137-145) mmol/L Potassium 4.7 (3.5-5.1) mmol/L Chloride 101 (98-107) mmol/L Carbon Dioxide 17 L (22-30) mmol/L Anion Gap 21 mmol/L BUN 16 (9-20) mg/dL Creatinine 0.69 (0.66-1.25) mg/dL Est GFR (CKD-EPI)AfAm >90 (>60 ml/min/1.73 sqM) Est GFR (CKD-EPI)NonAf >90 (>60 ml/min/1.73 sqM) Glucose 83 (74-99) mg/dL Calcium 9.0 (8.4-10.2) mg/dL Magnesium 2.0 (1.6-2.3) mg/dL Total Bilirubin 0.6 (0.2-1.3) mg/dL AST 222 H (17-59) U/L ALT 161 H (4-49) U/L Alkaline Phosphatase 88 (38-126) U/L Total Protein 7.9 (6.3-8.2) g/dL Albumin 4.9 (3.5-5.0) g/dL Amylase 57 (30-110) U/L Lipase 184 (23-300) U/L Serum Alcohol 341 H* mg/dL Disposition Clinical Impression: Alcoholic intoxication Disposition: ADMITTED IP TO THIS HOSP Is patient prescribed a controlled substance at d/c from ED?: No Referrals: Ruperto Wheat MD [Primary Care Provider] - 1-2 days Decision Time: 20:04
[2021-03-25 19:16] LABS: ALT 161 U/L (4-49); AST 222 U/L (17-59); African American GFR (CKD) >90 (>60 ml/min/1.73 sqM); Albumin 4.9 g/dL (3.5-5.0); Alkaline Phosphatase 88 U/L (38-126); Amylase 57 U/L (30-110); Anion Gap 21 mmol/L; Blood Urea Nitrogen 16 mg/dL (9-20); Carbon Dioxide 17 mmol/L (22-30); Chloride 101 mmol/L (98-107); Glucose 83 mg/dL (74-99); Lipase 184 U/L (23-300); Non-African American GFR(CKD) >90 (>60 ml/min/1.73 sqM); Potassium 4.7 mmol/L (3.5-5.1); Sodium 139 mmol/L (137-145); Total Bilirubin 0.6 mg/dL (0.2-1.3); Total Protein 7.9 g/dL (6.3-8.2)
[2021-03-25 19:19] LABS: INR 0.9 (<1.2); Partial Thromboplastin Time 21.8 sec (22.0-30.0); Prothrombin Time 9.5 sec (9.0-12.0)
[2021-03-25 19:30] LABS: Alcohol 341 mg/dL
[2021-03-25] MEDS ORDERED: NALOXONE 0.4 MG/ML 1 ML VIAL IV PRN (20:04)
[2021-03-25] MEDS ORDERED: LORazepam 2 MG/ML INJ IV PRN (20:06)
[2021-03-25] MEDS ORDERED: THIAMINE 100 MG/ML 2 ML VIAL IM STA (20:06)
[2021-03-25] MEDS: LORazepam 2 MG/ML INJ IV PRN (23:13)
[2021-03-26] MEDS: LORazepam 2 MG/ML INJ IV PRN ×13 (01:28→23:23)
[2021-03-26 03:38] LABS: Amphetamine Screen,Urine Not Detected (NotDetected); Barbiturate Screen,Urine Not Detected (NotDetected); Benzodiazepines Screen,Urine Detected (NotDetected); Cocaine Screen,Urine Not Detected (NotDetected); Methadone Screen, Urine Not Detected (NotDetected); Opiate Screen,Urine Not Detected (NotDetected); Oxycodone Screen, Urine Not Detected (NotDetected); Phencyclidine Screen,Urine Not Detected (NotDetected); Tricyclic Antidepressant,Urine Not Detected (NotDetected); Urn Cannabinoid Scrn Not Detected (NotDetected)
[2021-03-26] MEDS ORDERED: ONDANSETRON 4 MG/2 ML VIAL IVP PRN (04:03)
[2021-03-26] MEDS: ACETAMINOPHEN TAB 500 MG TAB PO PRN ×2 (04:10→20:14)
[2021-03-26] MEDS: THIAMINE 100 MG TAB PO SCH ×2 (07:39→15:05)
--- NOTE | 2021-03-26 08:10 | P.HPIM ---
History of Present Illness H&P Date: 03/26/21 Chief Complaint: Alcohol intoxication This is a history of physical 60-year-old white male with known history of depression and anxiety and history of chronic pain with opiate dependence who has struggled in the past with alcoholism. He states significant work stress and family issues which pushed him to binge drink. The patient has been relatively sober. And he recently finished a short course of inpatient rehab which he was quite dissatisfied with. No significant suicidality or homicidality stated. He understands his weakness. Blood alcohol level was 300 and he is admitted for alcoholic intoxication. Review of Systems Constitutional: Denies chills, Denies fever Eyes: denies blurred vision, denies pain Ears, nose, mouth and throat: Denies headache, Denies sore throat Cardiovascular: Denies chest pain, Denies shortness of breath Respiratory: Denies cough Gastrointestinal: Reports as per HPI Neurological: Reports tremors Psychiatric: Denies anxiety, Denies depression Past Medical History Past Medical History: Musculoskeletal Disorder Additional Past Medical History / Comment(s): ETOH abuse, DTs, chronic low back pain/herniated discs/scoliosis/spinal stenosis, right shoulder History of Any Multi-Drug Resistant Organisms: None Reported Past Surgical History: Orthopedic Surgery Additional Past Surgical History / Comment(s): R ankle fx with surgical repair- pin in and out, back injections at [facility]. Past Anesthesia/Blood Transfusion Reactions: No Reported Reaction Additional Past Anesthesia/Blood Transfusion Reaction / Comment(s): Pt has never received blood. Past Psychological History: Anxiety, Depression Additional Psychological History / Comment(s): Pt resides with his spouse. He is independent. He is a truck farmer. Smoking Status: Never smoker Past Alcohol Use History: Abuse, Daily, Heavy Additional Past Alcohol Use History / Comment(s): Pt drinks a pint of alcohol a night. Past Drug Use History: None Reported Additional Drug Use History / Comment(s): states that he was abusing prescribed [place] and Ambien. Dr. Wheat recently stopped prescribing these medications. - Past Family History Father Family Medical History: Dementia Additional Family Medical History / Comment(s): Father is . Mother Family Medical History: Cancer Additional Family Medical History / Comment(s): Mother at age 64yrs of pancreatic cancer. Medications and Allergies Home Medications Medication Instructions Recorded Confirmed Type Citalopram Hydrobromide [CeleXA] 40 mg PO DAILY 03/25/21 03/25/21 History Ibuprofen [Motrin] 800 mg PO Q8H PRN 03/25/21 03/25/21 History QUEtiapine [SEROquel] 50 mg PO HS 03/25/21 03/25/21 History Allergies Allergy/AdvReac Type Severity Reaction Status Date / Time No Known Allergies Allergy Verified 03/25/21 19:09 Physical Exam Vitals: Vital Signs Temp Pulse Pulse Resp BP BP Pulse Ox 03/26/21 01:56 97.8 F 113 H 20 127/87 98 03/25/21 22:29 98.2 F 115 H 18 154/91 95 03/25/21 21:11 109 H 16 112/78 96 03/25/21 18:44 108 H 18 132/100 95 03/25/21 17:19 98.2 F 116 H 20 151/94 96 Intake and Output 03/25/21 03/26/21 03/26/21 22:59 06:59 14:59 Output Total 300 Balance -300 Output: Urine 300 Other: Weight 68.039 kg - Constitutional General appearance: no acute distress - EENT Eyes: EOMI - Neck Neck: no lymphadenopathy - Respiratory Respiratory: bilateral: CTA - Cardiovascular Rhythm: regular Heart sounds: normal: S1, S2 Abnormal Heart Sounds: no S3 Gallop - Gastrointestinal General gastrointestinal: soft, no tenderness - Neurologic Tremors noted of withdrawal - Psychiatric Psychiatric: appropriate affect Results CBC & Chem 7: 03/25/21 18:35 03/25/21 18:35 Labs: Abnormal Lab Results - Last 24 Hours (Table) 03/25/21 03/25/21 03/26/21 Range/Units 18:35 18:35 03:12 APTT 21.8 L (22.0-30.0) sec Carbon Dioxide 17 L (22-30) mmol/L AST 222 H (17-59) U/L ALT 161 H (4-49) U/L U Benzodiazepines Scrn Detected H (NotDetected) Serum Alcohol 341 H* mg/dL Thrombosis Risk Factor Assmnt - Choose All That Apply Each Factor Represents 1 point: Age 41-60 years Each Risk Factor Represents 2 Points: Arthroscopic surgery Thrombosis Risk Factor Assessment Total Risk Factor Score: 3 Thrombosis Risk Factor Assessment Level: Moderate Risk Assessment and Plan (1) Alcoholic intoxication Current Visit: Yes Status: Acute Code(s): F10.129 - ALCOHOL ABUSE WITH INTOXICATION, UNSPECIFIED SNOMED Code(s): 70172968 (2) Alcohol abuse Current Visit: No Status: Acute Code(s): F10.10 - ALCOHOL ABUSE, UNCOMPLICATED SNOMED Code(s): 92620849 (3) Alcohol withdrawal Current Visit: No Status: Acute Code(s): F10.239 - ALCOHOL DEPENDENCE WITH WITHDRAWAL, UNSPECIFIED SNOMED Code(s): 777461094 (4) Depression Current Visit: No Status: Acute Code(s): F32.9 - MAJOR DEPRESSIVE DISORDER, SINGLE EPISODE, UNSPECIFIED SNOMED Code(s): 42345213 Plan: Continue IV hydration with multivitamin supplementation. Psychiatry has been consulted. Slight alcoholic liver hepatitis. Check CMP in a.m.
[2021-03-26 11:24] VITALS: BMI 22.8
--- NOTE | 2021-03-26 14:11 | P.CN ---
Psychiatric Consult - . Consult date: 03/26/21 Consult:: 03/26/21 14:09 IDENTIFYING DATA: This patient is a , employed, 60-year-old male who was admitted for alcohol intoxication. HISTORY OF PRESENT ILLNESS: The patient presented to the hospital on 03/26/2021, with a chief complaint of alcohol intoxication. Patient has a significant history of depression, anxiety, and chronic pain with opiate dependence and a long-standing history of alcoholism. ETOH in the ED 341. The patient was most recently at [facility] for alcohol rehabilitation is discharged 2-3 weeks ago. Psychiatry has been consulted for evaluation of depression. Currently, the patient is not endorsing any significant symptoms of depression at this time. He is currently not endorsing any suicidal or homicidal ideation, intention, and/or plan. He denies any anhedonia. He reports no difficulty with sleep. He does report an overall low mood and states that he has been thinking of his son more recently. Patient reports that his son 3 years ago after expressing a pulmonary embolus. He states that he continues to grieve the loss of his son and that this causes him to drink heavily. He reports that he started drinking 3 years ago after his son's . He reports drinking up to 3-5 beers and a half pint of hard liquor per day. He does express a strong desire to quit alcohol. Regards to bipolar symptoms, the patient does not endorse any racing thoughts, mood swings, or increased goal-directed activity. The patient is not reporting any auditory or visual hallucinations. He is denying any paranoia or other delusions. In regards to trauma, the patient is not reporting any physical, sexual, or emotional abuse. He does express that when he heard of his son's passing, he became quite dysphoric. Patient was last admitted into a psychiatric unit in June 2016. At that time, the patient threatened to kill himself with a loaded firearm and wrote his daughter suicide note. Patient was admitted for close observation and was treated for depression. He was discharged on a regimen of Seroquel, trazodone, and Celexa. The patient currently follows up with his outpatient primary care provider Dr. Wheat for management of his mood disorder. PAST PSYCHIATRIC HISTORY: Patient has a history of major depressive disorder and alcohol abuse. The patient is currently prescribed Celexa and Seroquel. He has tried Librium, trazodone, and Ativan in the past. He has had 1 prior inpatient psychiatric hospitalization on [facility] in June of 2016. Patient denies any psychiatric outpatient follow-up. Patient denies any history of suicide attempts in the past. PAST MEDICAL HISTORY: . ALLERGIES: NO KNOWN DRUG ALLERGIES CHEMICAL DEPENDENCY HISTORY: As per HPI FAMILY PSYCHIATRIC/SUBSTANCE USE HISTORY: Denies SOCIAL HISTORY: Patient was born and raised in [place]. The patient has been to his for 36 years. They have had 3 children together, one daughter and 2 sons. One of his senses 3 years ago on the other lives in [place]. He is currently employed and works as a foreman shipping department. He was most recently at [facility] 2-3 weeks ago for alcohol rehabilitation. He is 1 of 4 siblings. MENTAL STATUS EXAM: General Appearance: Patient appears to be stated age is alert, pleasant, and cooperative. Patient appears to have fair hygiene and grooming wearing hospital gown with fair eye contact. Behavior: Patient is calmly lying in bed without any agitated behavior. Psychomotor slightly elevated. The patient is quite tremulous. Speech: Patient's speech is fluent and nonpressured. low in volume, but spontaneous, and monotone. Mood/Affect: Patient reports their mood is "feeling okay", affect is withdrawn and constricted. Suicidality/Homicidality: Patient denies having any suicidal or homicidal ideation intent or plan. Perceptions: Patient denies any visual hallucinations and denies any auditory hallucinations Though content/process: There is no evidence of any delusional thought content and thought process is linear and goal-directed. Memory and concentration: AOX3, grossly intact for the purposes of this session. Can spell "WORLD" backwards Judgment and insight: fair Vital Signs Temp 98.2 F 03/26/21 08:00 Pulse 116 H 03/26/21 08:00 Resp 18 03/26/21 08:00 BP 143/91 03/26/21 08:00 Pulse Ox 92 L 03/26/21 08:00 Intake & Output 03/25/21 03/26/21 03/26/21 18:59 06:59 18:59 Output Total 300 Balance -300 Weight 68.039 kg 68.039 kg 68.039 kg Output: Urine 300 Laboratory Results - Last 24 Hours 03/25/21 03/25/21 03/25/21 18:35 18:35 18:35 WBC 4.9 RBC 4.85 Hgb 16.2 Hct 47.4 MCV 97.7 MCH 33.5 MCHC 34.3 RDW 15.2 Plt Count 174 MPV 7.0 Neutrophils % 54 Lymphocytes % 33 Monocytes % 8 Eosinophils % 0 Basophils % 1 Neutrophils # 2.7 Lymphocytes # 1.6 Monocytes # 0.4 Eosinophils # 0.0 Basophils # 0.0 PT 9.5 INR 0.9 APTT 21.8 L Sodium 139 Potassium 4.7 Chloride 101 Carbon Dioxide 17 L Anion Gap 21 BUN 16 Creatinine 0.69 Est GFR (CKD-EPI)AfAm >90 Est GFR (CKD-EPI)NonAf >90 Glucose 83 Calcium 9.0 Magnesium 2.0 Total Bilirubin 0.6 AST 222 H ALT 161 H Alkaline Phosphatase 88 Total Protein 7.9 Albumin 4.9 Amylase 57 Lipase 184 Urine Opiates Screen Ur Oxycodone Screen Urine Methadone Screen Ur Propoxyphene Screen Ur Barbiturates Screen U Tricyclic Antidepress Ur Phencyclidine Scrn Ur Amphetamines Screen U Methamphetamines Scrn U Benzodiazepines Scrn Urine Cocaine Screen U Marijuana (THC) Screen Serum Alcohol 341 H* Coronavirus (PCR) 03/25/21 03/26/21 21:11 03:12 WBC RBC Hgb Hct MCV MCH MCHC RDW Plt Count MPV Neutrophils % Lymphocytes % Monocytes % Eosinophils % Basophils % Neutrophils # Lymphocytes # Monocytes # Eosinophils # Basophils # PT INR APTT Sodium Potassium Chloride Carbon Dioxide Anion Gap BUN Creatinine Est GFR (CKD-EPI)AfAm Est GFR (CKD-EPI)NonAf Glucose Calcium Magnesium Total Bilirubin AST ALT Alkaline Phosphatase Total Protein Albumin Amylase Lipase Urine Opiates Screen Not Detected Ur Oxycodone Screen Not Detected Urine Methadone Screen Not Detected Ur Propoxyphene Screen Not Detected Ur Barbiturates Screen Not Detected U Tricyclic Antidepress Not Detected Ur Phencyclidine Scrn Not Detected Ur Amphetamines Screen Not Detected U Methamphetamines Scrn Not Detected U Benzodiazepines Scrn Detected H Urine Cocaine Screen Not Detected U Marijuana (THC) Screen Not Detected Serum Alcohol Coronavirus (PCR) Not Detected IMPRESSIONS: Major depressive disorder, recurrent Alcohol use disorder PLAN: -At this time patient DOES NOT meet criteria for inpatient psychiatric admission. The patient is currently not endorsing any suicidal or homicidal ideation, intention, and/or plan. He does not present an imminent risk of harm to self or others. He is future oriented. -Would recommend the following medication changes/additions: Restart Celexa 40 mg by mouth daily for management of depression/anxiety Restart Seroquel 50 mg daily at bedtime for mood augmentation/insomnia Start naltrexone 50 mg by mouth daily for alcohol cessation. - Risks, benefits and alternatives were discussed with the patient in detail. AST/ALT elevated, recommend close monitoring for any acute worsening. -Recommend outpatient follow-up for his mood disorder. Recommend outpatient psychotherapy services and counseling for his alcohol use disorder. -Psychiatry will sign off at this point, please contact with any questions. Thank you for this consult. 03/26/21 14:10
[2021-03-26] MEDS: QUEtiapine 50 MG TAB PO SCH (20:14)
[2021-03-26] MEDS ORDERED: chlordiazePOXIDE 25 MG CAP PO STA (21:19)
[2021-03-27] MEDS: LORazepam 2 MG/ML INJ IV PRN ×9 (02:01→20:08)
[2021-03-27] MEDS: NALTREXONE HCL 50 MG TAB PO SCH (07:16)
[2021-03-27] MEDS: THIAMINE 100 MG TAB PO SCH ×2 (07:16→17:16)
[2021-03-27] MEDS: CITALOPRAM HYDROBROMIDE 20 MG TAB PO SCH (07:16)
--- NOTE | 2021-03-27 08:17 | P.PN ---
Subjective Principal diagnosis: Alcoholic withdrawal with depression This is a continue progress note on a 60-year-old white male who is admitted for alcoholic withdrawal. The patient is still having tremulousness. Appreciate psychiatric input. We'll go ahead and add Librium to his Ativan today. Objective - Vital Signs Vital signs: Vital Signs Temp 98.2 F 03/27/21 07:37 Pulse 125 H 03/27/21 07:37 Resp 18 03/27/21 07:37 BP 149/97 03/27/21 07:37 Pulse Ox 93 L 03/27/21 07:37 Intake & Output 03/26/21 03/27/21 03/27/21 18:59 06:59 18:59 Output Total 540 650 Balance -540 -650 Weight 68.039 kg Output: Urine 540 650 Other: # Voids 3 2 - Constitutional General appearance: Present: thin - EENT Eyes: Absent: abnormal pupil - Respiratory Respiratory: bilateral: CTA - Cardiovascular Rhythm: regular Abnormal Heart Sounds: Absent: S3 Gallop - Gastrointestinal General gastrointestinal: Present: soft. Absent: tenderness - Labs CBC & Chem 7: 03/25/21 18:35 03/25/21 18:35 Assessment and Plan (1) Alcoholic intoxication Current Visit: Yes Status: Acute Code(s): F10.129 - ALCOHOL ABUSE WITH INTOXICATION, UNSPECIFIED SNOMED Code(s): 75656268 (2) Alcohol abuse Current Visit: No Status: Acute Code(s): F10.10 - ALCOHOL ABUSE, UNCOMPLICATED SNOMED Code(s): 95362487 (3) Alcohol withdrawal Current Visit: Yes Status: Acute Code(s): F10.239 - ALCOHOL DEPENDENCE WITH WITHDRAWAL, UNSPECIFIED SNOMED Code(s): 551874381 (4) Depression Current Visit: No Status: Acute Code(s): F32.9 - MAJOR DEPRESSIVE DISORDER, SINGLE EPISODE, UNSPECIFIED SNOMED Code(s): 11828736 Plan: Continue IV hydration with multivitamin supplementation. Appreciate psychiatric input. Check CMP in a.m.
[2021-03-27] MEDS: SODIUM CHLORIDE 0.9% 1,000 ML IV SCH ×2 (08:21→20:08)
[2021-03-27] MEDS: chlordiazePOXIDE 25 MG CAP PO PRN ×2 (14:37→20:07)
[2021-03-27] MEDS: QUEtiapine 50 MG TAB PO SCH (20:07)
[2021-03-27] MEDS: ACETAMINOPHEN TAB 500 MG TAB PO PRN (20:07)
[2021-03-28] MEDS: LORazepam 2 MG/ML INJ IV PRN ×9 (00:27→20:23)
[2021-03-28] MEDS: chlordiazePOXIDE 25 MG CAP PO PRN ×2 (04:26→12:18)
[2021-03-28] MEDS: THIAMINE 100 MG TAB PO SCH ×2 (08:51→16:34)
[2021-03-28] MEDS: NALTREXONE HCL 50 MG TAB PO SCH (08:51)
[2021-03-28] MEDS: CITALOPRAM HYDROBROMIDE 20 MG TAB PO SCH (08:51)
[2021-03-28 10:18] LABS: African American GFR (CKD) 126.7 (60.0-200.0); Albumin 4.1 g/dL (3.80-4.90); Albumin/Globulin Ratio 1.58 (1.60-3.17); Anion Gap 17.2 mmol/L (4.00-12.00); BUN/Creat Ratio 16.67 Ratio (12.00-20.00); Calcium 8.7 mg/dL (8.7-10.3); Carbon Dioxide 20.8 mmol/L (21.6-31.8); Globulin 2.6 g/dL (1.6-3.3); Non-African American GFR(CKD) 109.3 (60.0-200.0); Potassium 3.3 mmol/L (3.5-5.5); Total Bilirubin 1.5 mg/dL (0.3-1.2); Total Protein 6.7 g/dL (6.2-8.2)
[2021-03-28] MEDS: SODIUM CHLORIDE 0.9% 1,000 ML IV SCH (11:17)
[2021-03-28 11:49] LABS: HCT 43.6 % (39.6-50.0); HGB 15.2 g/dL (13.0-17.0); MCH 33.3 pg (27.0-32.0); MCHC 34.9 g/dL (32.0-37.0); MCV 95.4 fL (80.0-97.0); Mean Platelet Volume 10.4 fL (9.5-12.2); Platelet Count 130 X 10*3/uL (140-440); RBC 4.57 X 10*6/uL (4.40-5.60); RDW 14.4 % (11.5-14.5); WBC 6.79 X 10*3/uL (4.50-10.00)
--- NOTE | 2021-03-28 16:47 | P.PN ---
Subjective Progress Note Date: 03/28/21 Principal diagnosis: Alcohol intoxication Mr. Webb is a 60-year-old male with a past medical history of anxiety, depression, alcohol dependence admitted for acute alcohol intoxication. Patient was in significant stress due to family and work issues so was been drinking and admitted for alcohol intoxication. On 03/28/2021- patient is seen and examined at the bedside. As per discussion with nursing staff, has been agitated and receiving Ativan for delirium tremens. He is currently lying in bed appears to have tremors and trying to eat a cookie. Patient states that he is withdrawing from alcohol. He denies having any chest pain he complains of mild agitation and tremors. He denies having any cough or difficulty in breathing. No abdominal pain nausea vomiting or diarrhea. On reviewing his vitals temperature 98.4, heart rate between 100s to 120s, respiratory rate 18, blood pressure 122/88, saturating 95% on room air. During his last white count was 6.7, hemoglobin 15.2, platelets 1:30. Sodium 135, potassium 3.3, chloride 97, bicarbonate 20, BUN 10, creatinine 0.6. AST 72, ALT 83 trending down, alcohol level at the time of admission 341. Medications medications have been reviewed Objective - Vital Signs Vital signs: Vital Signs Temp 98.4 F 03/28/21 08:00 Pulse 121 H 03/28/21 08:00 Resp 18 03/28/21 08:00 BP 144/88 03/28/21 08:00 Pulse Ox 94 L 03/28/21 08:00 Intake & Output 03/27/21 03/28/21 03/28/21 18:59 06:59 18:59 Intake Total 1050 Output Total 1100 Balance -50 Intake: Intake, IV Titration 1050 Amount Sodium Chloride 0.9% 1, 1050 000 ml @ 75 mls/hr IV . [id number] [facility] Rx#:[id number] Output: Urine 1100 Other: Voiding Method Urinal Urinal # Voids 5 5 - Exam PHYSICAL EXAMINATION: GENERAL: The patient is alert and oriented x2-3, not in any acute distress. Emaciated HEENT: Pupils are round and equally reacting to light. EOMI. No scleral icterus. No conjunctival pallor. CARDIOVASCULAR: Tachycardia PULMONARY: Chest is clear to auscultation, no wheezing or crackles. ABDOMEN: Soft, nontender, nondistended, normoactive bowel sounds. No palpable organomegaly. MUSCULOSKELETAL: No joint swelling or deformity. EXTREMITIES: No edema NEUROLOGICAL: Gross neurological examination did not reveal any focal deficits. Positive for tremors SKIN:No rash - Labs CBC & Chem 7: 03/28/21 06:32 03/28/21 06:32 Labs: Abnormal Lab Results - Last 24 Hours (Table) 03/28/21 03/28/21 Range/Units 06:32 06:32 MCH 33.3 H (27.0-32.0) pg Plt Count 130 L (140-440) X 10*3/uL Plt Count Comment DECREASED A Potassium 3.3 L (3.5-5.5) mmol/L Carbon Dioxide 20.8 L (21.6-31.8) mmol/L Anion Gap 17.20 H (4.00-12.00) mmol/L Total Bilirubin 1.5 H (0.3-1.2) mg/dL AST 72 H (14-35) U/L ALT 83 H (10-49) U/L Albumin/Globulin Ratio 1.58 L (1.60-3.17) g/dL Assessment and Plan Assessment: ASSESSMENT Acute alcohol intoxication Delirium tremens due to alcohol withdrawal Anxiety with depression Multiple joint osteoarthritis Plan: Continue to monitor the patient for delirium tremens, continue with fever scale. Librium 50 mg 3 times a day to be scheduled. Ativan when necessary. Continue with multivitamin and folic acid and thiamine supplements. Continue with the current medication regimen. Further recommendations to follow depending on the progress of the patient.
[2021-03-28] MEDS: FOLIC ACID 1 MG TAB PO SCH (17:49)
[2021-03-28] MEDS: QUEtiapine 50 MG TAB PO SCH (20:24)
[2021-03-28] MEDS: chlordiazePOXIDE 25 MG CAP PO SCH (20:24)
[2021-03-29] MEDS ORDERED: Potassium Replacement Protocol 1 EACH MISC MISCELLANE PRN (00:20)
[2021-03-29] MEDS: POTASSIUM CHLORIDE ER 20 MEQ TAB.ER PO SCH ×4 (00:51→21:00)
[2021-03-29] MEDS: LORazepam 2 MG/ML INJ IV PRN ×7 (00:54→23:37)
[2021-03-29] MEDS: SODIUM CHLORIDE 0.9% 1,000 ML IV SCH ×2 (04:14→17:28)
[2021-03-29 07:29] LABS: African American GFR (CKD) >90 (>60 ml/min/1.73 sqM); Anion Gap 11 mmol/L; Blood Urea Nitrogen 10 mg/dL (9-20); Carbon Dioxide 24 mmol/L (22-30); Chloride 102 mmol/L (98-107); Glucose 93 mg/dL (74-99); Non-African American GFR(CKD) >90 (>60 ml/min/1.73 sqM); Potassium 3.1 mmol/L (3.5-5.1); Sodium 137 mmol/L (137-145)
[2021-03-29] MEDS: chlordiazePOXIDE 25 MG CAP PO SCH ×3 (09:01→21:00)
[2021-03-29] MEDS: FOLIC ACID 1 MG TAB PO SCH (09:01)
[2021-03-29] MEDS: THIAMINE 100 MG TAB PO SCH ×2 (09:01→17:27)
[2021-03-29] MEDS: NALTREXONE HCL 50 MG TAB PO SCH (09:01)
[2021-03-29] MEDS: CITALOPRAM HYDROBROMIDE 20 MG TAB PO SCH (09:01)
[2021-03-29 13:29] LABS: Basophils # (A) 0.02 X 10*3/uL (0.00-0.10); Basophils % (A) 0.3 %; Eosinophils # (A) 0.17 X 10*3/uL (0.04-0.35); Eosinophils % (A) 2.5 %; HCT 42.7 % (39.6-50.0); HGB 14.7 g/dL (13.0-17.0); Lymphocytes # (A) 1.22 X 10*3/uL (0.90-5.00); Lymphocytes % (A) 17.9 %; MCH 33.6 pg (27.0-32.0); MCHC 34.4 g/dL (32.0-37.0); MCV 97.7 fL (80.0-97.0); Mean Platelet Volume 9.8 fL (9.5-12.2); Monocytes # (A) 0.73 X 10*3/uL (0.20-1.00); Monocytes % (A) 10.7 %; Neutrophils # (A) 4.64 X 10*3/uL (1.80-7.70); Neutrophils % (A) 68.3 %; Platelet Count 134 X 10*3/uL (140-440); RBC 4.37 X 10*6/uL (4.40-5.60); RDW 14.6 % (11.5-14.5)
[2021-03-29] MEDS: QUEtiapine 50 MG TAB PO SCH (21:00)
--- NOTE | 2021-03-30 02:24 | P.PN ---
Subjective Progress Note Date: 03/29/21 Principal diagnosis: Alcohol intoxication Mr. Webb is a 60-year-old male with a past medical history of anxiety, depression, alcohol dependence admitted for acute alcohol intoxication. Patient was in significant stress due to family and work issues so was been drinking and admitted for alcohol intoxication. On 03/28/2021- patient is seen and examined at the bedside. As per discussion with nursing staff, he has been agitated and receiving Ativan for delirium tremens. He is currently lying in bed appears to have tremors and trying to eat a cookie. Patient states that he is withdrawing from alcohol. He denies having any chest pain he complains of mild agitation and tremors. He denies having any cough or difficulty in breathing. No abdominal pain nausea vomiting or diarrhea. On reviewing his vitals temperature 98.4, heart rate between 100s to 120s, respiratory rate 18, blood pressure 122/88, saturating 95% on room air. During his last white count was 6.7, hemoglobin 15.2, platelets 1:30. Sodium 135, potassium 3.3, chloride 97, bicarbonate 20, BUN 10, creatinine 0.6. AST 72, ALT 83 trending down, alcohol level at the time of admission 341. On 03/29/2021-patient is seen and examined at the bedside. He is currently sitting in recliner by the bedside appears to be in no acute distress. He states that he still has tremors and continues to receive Ativan. He states overall he feels much better. He seems to be more oriented today. On reviewing his vitals temperature of 98.5, heart rate between 90s to 110s, respiratory rate 18, blood pressure 148/108, saturating at 96% on room air. On reviewing his labs white count of 6.8, hemoglobin 14.7, platelets 134. Sodium 137, potassium 3.1, chloride 102, bicarb 24, BUN 11, creatinine 0.5. Medications reviewed he is on Tylenol, Librium 25 mg 3 times daily, citalopram, folic acid, Ativan, Zofran, quetiapine, thiamine supplements Objective - Vital Signs Vital signs: Vital Signs Temp 98.2 F 03/29/21 13:13 Pulse 111 H 03/29/21 13:13 Resp 18 03/29/21 13:13 BP 148/108 03/29/21 13:13 Pulse Ox 96 07/04/21 13:13 Intake & Output 03/28/21 03/29/21 03/29/21 18:59 06:59 18:59 Output Total 1000 600 Balance -1000 -600 Output: Urine 1000 600 Other: Voiding Method External Catheter Diaper External Catheter Incontinent External Catheter # Voids 2 # Bowel Movements 2 3 - Exam PHYSICAL EXAMINATION: GENERAL: The patient is alert and oriented 3, not in any acute distress. Emaciated HEENT: Pupils are round and equally reacting to light. EOMI. No scleral icterus. No conjunctival pallor. CARDIOVASCULAR: Tachycardia PULMONARY: Chest is clear to auscultation, no wheezing or crackles. ABDOMEN: Soft, nontender, nondistended, normoactive bowel sounds. No palpable organomegaly. MUSCULOSKELETAL: No joint swelling or deformity. EXTREMITIES: No edema NEUROLOGICAL: Gross neurological examination did not reveal any focal deficits. Positive for mild tremors SKIN:No rash - Labs CBC & Chem 7: 03/29/21 06:43 03/29/21 06:43 Labs: Abnormal Lab Results - Last 24 Hours (Table) 03/29/21 03/29/21 Range/Units 06:43 06:43 RBC 4.37 L (4.40-5.60) X 10*6/uL MCV 97.7 H (80.0-97.0) fL MCH 33.6 H (27.0-32.0) pg RDW 14.6 H (11.5-14.5) % Plt Count 134 L (140-440) X 10*3/uL Plt Count Comment DECREASED A Potassium 3.1 L (3.5-5.1) mmol/L Creatinine 0.50 L (0.66-1.25) mg/dL Assessment and Plan Assessment: ASSESSMENT Acute alcohol intoxication Delirium tremens due to alcohol withdrawal Anxiety with depression Multiple joint osteoarthritis Plan: Patient seems to be more oriented today compared to yesterday. Continue to monitor the patient for delirium tremens, continue with CIWA scale. Librium 50 mg 3 times a day to be scheduled. Ativan when necessary. Continue with multivitamin and folic acid and thiamine supplements. Continue with the current medication regimen. Further recommendations to follow depending on the progress of the patient.
[2021-03-30] MEDS: LORazepam 2 MG/ML INJ IV PRN ×3 (04:15→15:30)
[2021-03-30] MEDS: SODIUM CHLORIDE 0.9% 1,000 ML IV SCH (04:28)
[2021-03-30] MEDS: chlordiazePOXIDE 25 MG CAP PO SCH (07:35)
[2021-03-30] MEDS: NALTREXONE HCL 50 MG TAB PO SCH (07:35)
[2021-03-30] MEDS: FOLIC ACID 1 MG TAB PO SCH (07:35)
[2021-03-30] MEDS: CITALOPRAM HYDROBROMIDE 20 MG TAB PO SCH (07:35)
[2021-03-30] MEDS: POTASSIUM CHLORIDE ER 20 MEQ TAB.ER PO SCH ×2 (07:35→07:55)
[2021-03-30] MEDS: THIAMINE 100 MG TAB PO SCH (07:35)
--- NOTE | 2021-03-30 08:37 | P.DS ---
Providers Date of admission: 03/26/21 11:11 Attending physician: Ruperto Wheat Consults: 03/25/21 20:05 Consult Physician Routine Consulting Provider: Sandro Aguilar Consult Reason/Comments: depression Do you want consulting provider notified?: Yes Primary care physician: Ruperto Wheat - Discharge Diagnosis(es) (1) Alcoholic intoxication Current Visit: Yes Status: Acute (2) Alcohol abuse Current Visit: No Status: Acute (3) Alcohol withdrawal Current Visit: Yes Status: Acute (4) Depression Current Visit: No Status: Acute Hospital Course: The patient is a 6-year-old white male essentially admitted for acute alcohol intoxication with withdrawal. The patient was stabilized and started on appropriate medication for withdrawal. The patient had significant tremor for about 4 days and was finally stabilized. Psychiatry was consulted and medications were adjusted. The patient is not tolerating diet without signif icant issue. Tremor is resolved and the patient was discharged in stable condition. Patient Condition at Discharge: Stable Plan - Discharge Summary Discharge Rx Participant: Yes New Discharge Prescriptions: No Action QUEtiapine [SEROquel] 50 mg PO HS Ibuprofen [Motrin] 800 mg PO Q8H PRN PRN Reason: Pain Citalopram Hydrobromide [CeleXA] 40 mg PO DAILY Discharge Medication List Citalopram Hydrobromide [CeleXA] 40 mg PO DAILY 03/25/21 [History] Ibuprofen [Motrin] 800 mg PO Q8H PRN 03/25/21 [History] QUEtiapine [SEROquel] 50 mg PO HS 03/25/21 [History] Follow up Appointment(s)/Referral(s): Ruperto Wheat MD [Primary Care Provider] - 1-2 days
[2021-03-30 15:18] VITALS: BP 153/105; PULSE 106; RESP 18; TEMP 98.8
== END 2021-03-30 17:18 | disposition home or self-care (01) | DRG 897 ==
LOC: EC 17:09 → 4SSUR 20:04 → OBSVTOIN 03-26 11:11
PROVIDERS: ADMIT Family Medicine; ATTEND Family Medicine
PROC: HZ2ZZZZ Detoxification Services for Substance Abuse Treatment (ICD-10-PCS; principal; 2021-03-26)
DX: F10.229 Alcohol dependence with intoxication, unspecified (principal); F11.20 Opioid dependence, uncomplicated; F33.9 Major depressive disorder, recurrent, unspecified; F10.231 Alcohol dependence with withdrawal delirium; M48.00 Spinal stenosis, site unspecified; R00.0 Tachycardia, unspecified; F41.9 Anxiety disorder, unspecified; K21.9 Gastro-esophageal reflux disease without esophagitis; G89.29 Other chronic pain; F41.8 Other specified anxiety disorders; M19.90 Unspecified osteoarthritis, unspecified site; M41.9 Scoliosis, unspecified; Z20.822 Contact with and (suspected) exposure to COVID-19; Z79.899 Other long term (current) drug therapy; Z87.81 Personal history of (healed) traumatic fracture; Z71.41 Alcohol abuse counseling and surveillance of alcoholic
CPT/HCPCS: 36415; 80048; 80053; 80306; 80320; 82150; 83690; 83735; 84132; 85025; 85027; 85610; 85730; 87635; 94760; 96361; 96374; 96375; 99285

== ENCOUNTER 2021-05-14 03:58 | Emergency (ER) | payer OTHER ==
[2021-05-14 04:09] VITALS: RESP 18
[2021-05-14] MEDS ORDERED: LORazepam 2 MG/ML INJ IV PRN ×3 (04:49)
[2021-05-14] MEDS ORDERED: LORazepam 2 MG/ML INJ IV STA (04:49)
--- NOTE | 2021-05-14 05:04 | XR ---
EXAMINATION TYPE: XR chest 2V DATE OF EXAM: 05/14/2021 COMPARISON: 10/22/2020 HISTORY: Chest pain TECHNIQUE: FINDINGS: There is coarse interstitial density at the lung bases. There is elevated right diaphragm a nd blunting right costophrenic angle. There is no gross heart failure. There are chest leads. There a re no hilar masses. Mediastinum is normal. IMPRESSION: Fibrotic changes and atelectasis at the lung bases similar to old exam. Chronic elevation of the right diaphragm could relate to some diaphragm paralysis. No heart failure.
[2021-05-14 05:16] LABS: INR 0.9 (<1.2); Partial Thromboplastin Time 25.4 sec (22.0-30.0); Prothrombin Time 10.2 sec (9.0-12.0)
[2021-05-14 05:17] LABS: Basophils % (A) 1 %; Eosinophils # (A) 0.2 k/uL (0-0.7); Eosinophils % (A) 2 %; HGB 13.6 gm/dL (13.0-17.5); Lymphocytes # (A) 1.9 k/uL (1.0-4.8); Lymphocytes % (A) 27 %; MCH 33.8 pg (25.0-35.0); MCHC 33.3 g/dL (31.0-37.0); MCV 101.7 fL (80.0-100.0); Macrocytosis Slight; Mean Platelet Volume 7.6; Monocytes # (A) 0.4 k/uL (0-1.0); Monocytes % (A) 6 %; Neutrophils # (A) 4.4 k/uL (1.3-7.7); Neutrophils % (A) 62 %; Platelet Count 172 k/uL (150-450); RBC 4.03 m/uL (4.30-5.90); RDW 14.6 % (11.5-15.5); WBC 7.1 k/uL (3.8-10.6)
--- NOTE | 2021-05-14 05:19 | ED ---
Alcohol HPI - General Chief Complaint: Alcohol Stated Complaint: Chest Pain Time Seen by Provider: 05/14/21 04:03 Source: patient Mode of arrival: wheelchair - History of Present Illness MD Complaint: alcohol withdrawal Time Since Last Drink: 8 -: hour(s) Recent Trauma: No Associated Symptoms: nausea, vomiting, tremors Chronic Alcohol Use: Yes - Related Data Home Medications Medication Instructions Recorded Confirmed Citalopram Hydrobromide [CeleXA] 40 mg PO DAILY 03/25/21 03/25/21 Ibuprofen [Motrin] 800 mg PO Q8H PRN 03/25/21 03/25/21 QUEtiapine [SEROquel] 50 mg PO HS 03/25/21 03/25/21 Previous Rx's Medication Instructions Recorded Folic Acid 1 mg PO DAILY #30 tab 03/30/21 Thiamine [Vitamin B-1] 100 mg PO BID-W/MEALS #60 tab 03/30/21 chlordiazePOXIDE HCl [Librium] 25 mg PO TID #45 cap 03/30/21 Magnesium Oxide 400 mg PO DAILY #20 tablet 05/14/21 chlordiazePOXIDE HCl [Librium] 25 mg PO QID 3 Days #12 capsule 05/14/21 Allergies Allergy/AdvReac Type Severity Reaction Status Date / Time No Known Allergies Allergy Verified 03/25/21 19:09 Review of Systems ROS Statement: Those systems with pertinent positive or pertinent negative responses have been documented in the HPI. ROS Other: All systems not noted in ROS Statement are negative. Constitutional: Denies: fever, chills, weakness Eyes: Denies: vision change Respiratory: Denies: cough, dyspnea Cardiovascular: Reports: palpitations. Denies: chest pain, edema, syncope Gastrointestinal: Reports: nausea, vomiting. Denies: abdominal pain, diarrhea, constipation, hematemesis, melena, hematochezia Genitourinary: Denies: dysuria Skin: Denies: rash Neurological: Denies: headache, weakness Psychiatric: Reports: anxiety. Denies: depression, suicidal thoughts Past Medical History Past Medical History: Musculoskeletal Disorder Additional Past Medical History / Comment(s): ETOH abuse, DTs, chronic low back pain/herniated discs/scoliosis/spinal stenosis, right shoulder History of Any Multi-Drug Resistant Organisms: None Reported Past Surgical History: Orthopedic Surgery Additional Past Surgical History / Comment(s): R ankle fx with surgical repair- pin in and out, back injections at [facility]. Past Anesthesia/Blood Transfusion Reactions: No Reported Reaction Additional Past Anesthesia/Blood Transfusion Reaction / Comment(s): Pt has never received blood. Past Psychological History: Anxiety, Depression Smoking Status: Never smoker Past Alcohol Use History: Abuse, Daily, Heavy Past Drug Use History: None Reported - Past Family History Father Family Medical History: Dementia Additional Family Medical History / Comment(s): Father is . Mother Family Medical History: Cancer Additional Family Medical History / Comment(s): Mother at age 64yrs of pancreatic cancer. General Exam General appearance: alert, in no apparent distress Head exam: Present: atraumatic, normocephalic Eye exam: Present: normal appearance, nystagmus. Absent: scleral icterus, conjunctival injection ENT exam: Present: mucous membranes dry Neck exam: Present: normal inspection Respiratory exam: Present: normal lung sounds bilaterally. Absent: respiratory distress, wheezes, rales, rhonchi, stridor Cardiovascular Exam: Present: normal rhythm, tachycardia, systolic murmur. Absent: diastolic murmur, rubs, gallop GI/Abdominal exam: Present: soft. Absent: distended, tenderness, guarding, rebound, rigid, mass Extremities exam: Present: normal inspection, normal capillary refill. Absent: pedal edema, calf tenderness Back exam: Present: normal inspection. Absent: CVA tenderness (R), CVA tenderness (L) Neurological exam: Present: alert Skin exam: Present: warm, dry, intact, normal color. Absent: rash Course Vital Signs 05/14/21 05/14/21 05/14/21 04:03 05:00 06:00 Pulse Rate 116 H 92 Respiratory 18 18 18 Rate Blood Pressure 131/89 115/97 112/82 O2 Sat by Pulse 100 Oximetry Medical Decision Making - Lab Data Result diagrams: 05/14/21 04:41 05/14/21 04:41 Lab Results 05/14/21 05/14/21 05/14/21 Range/Units 04:41 04:41 04:41 WBC 7.1 (3.8-10.6) k/uL RBC 4.03 L (4.30-5.90) m/uL Hgb 13.6 (13.0-17.5) gm/dL Hct 41.0 (39.0-53.0) % MCV 101.7 H (80.0-100.0) fL MCH 33.8 (25.0-35.0) pg MCHC 33.3 (31.0-37.0) g/dL RDW 14.6 (11.5-15.5) % Plt Count 172 (150-450) k/uL MPV 7.6 Neutrophils % 62 % Lymphocytes % 27 % Monocytes % 6 % Eosinophils % 2 % Basophils % 1 % Neutrophils # 4.4 (1.3-7.7) k/uL Lymphocytes # 1.9 (1.0-4.8) k/uL Monocytes # 0.4 (0-1.0) k/uL Eosinophils # 0.2 (0-0.7) k/uL Basophils # 0.0 (0-0.2) k/uL Macrocytosis Slight PT 10.2 (9.0-12.0) sec INR 0.9 (<1.2) APTT 25.4 (22.0-30.0) sec Sodium 136 L (137-145) mmol/L Potassium 3.1 L (3.5-5.1) mmol/L Chloride 94 L (98-107) mmol/L Carbon Dioxide 29 (22-30) mmol/L Anion Gap 13 mmol/L BUN 14 (9-20) mg/dL Creatinine 0.69 (0.66-1.25) mg/dL Est GFR (CKD-EPI)AfAm >90 (>60 ml/min/1.73 sqM) Est GFR (CKD-EPI)NonAf >90 (>60 ml/min/1.73 sqM) Glucose 87 (74-99) mg/dL Calcium 8.8 (8.4-10.2) mg/dL Magnesium 1.5 L (1.6-2.3) mg/dL Total Bilirubin 0.4 (0.2-1.3) mg/dL AST 65 H (17-59) U/L ALT 28 (4-49) U/L Alkaline Phosphatase 91 (38-126) U/L Troponin I (0.000-0.034) ng/mL Total Protein 6.8 (6.3-8.2) g/dL Albumin 4.1 (3.5-5.0) g/dL Serum Alcohol 113 mg/dL 05/14/21 Range/Units 04:41 WBC (3.8-10.6) k/uL RBC (4.30-5.90) m/uL Hgb (13.0-17.5) gm/dL Hct (39.0-53.0) % MCV (80.0-100.0) fL MCH (25.0-35.0) pg MCHC (31.0-37.0) g/dL RDW (11.5-15.5) % Plt Count (150-450) k/uL MPV Neutrophils % % Lymphocytes % % Monocytes % % Eosinophils % % Basophils % % Neutrophils # (1.3-7.7) k/uL Lymphocytes # (1.0-4.8) k/uL Monocytes # (0-1.0) k/uL Eosinophils # (0-0.7) k/uL Basophils # (0-0.2) k/uL Macrocytosis PT (9.0-12.0) sec INR (<1.2) APTT (22.0-30.0) sec Sodium (137-145) mmol/L Potassium (3.5-5.1) mmol/L Chloride (98-107) mmol/L Carbon Dioxide (22-30) mmol/L Anion Gap mmol/L BUN (9-20) mg/dL Creatinine (0.66-1.25) mg/dL Est GFR (CKD-EPI)AfAm (>60 ml/min/1.73 sqM) Est GFR (CKD-EPI)NonAf (>60 ml/min/1.73 sqM) Glucose (74-99) mg/dL Calcium (8.4-10.2) mg/dL Magnesium (1.6-2.3) mg/dL Total Bilirubin (0.2-1.3) mg/dL AST (17-59) U/L ALT (4-49) U/L Alkaline Phosphatase (38-126) U/L Troponin I <0.012 (0.000-0.034) ng/mL Total Protein (6.3-8.2) g/dL Albumin (3.5-5.0) g/dL Serum Alcohol mg/dL - EKG Data -: EKG Interpreted by Pa EKG shows normal: sinus rhythm, axis (Normal), intervals (Normal), QRS complexes (Normal), ST-T waves (Normal) Rate: tachycardia (Rate 107 bpm) Disposition Clinical Impression: Alcohol withdrawal Disposition: HOME SELF-CARE Condition: Good Instructions (If sedation given, give patient instructions): Alcohol Withdrawal (ED) Prescriptions: chlordiazePOXIDE HCl [Librium] 25 mg PO QID 3 Days #12 capsule Magnesium Oxide 400 mg PO DAILY #20 tablet Is patient prescribed a controlled substance at d/c from ED?: No Referrals: Ruperto Wheat MD [Primary Care Provider] - 1-2 days
[2021-05-14 05:34] LABS: ALT 28 U/L (4-49); AST 65 U/L (17-59); African American GFR (CKD) >90 (>60 ml/min/1.73 sqM); Albumin 4.1 g/dL (3.5-5.0); Alkaline Phosphatase 91 U/L (38-126); Anion Gap 13 mmol/L; Blood Urea Nitrogen 14 mg/dL (9-20); Calcium 8.8 mg/dL (8.4-10.2); Carbon Dioxide 29 mmol/L (22-30); Chloride 94 mmol/L (98-107); Glucose 87 mg/dL (74-99); Magnesium 1.5 mg/dL (1.6-2.3); Non-African American GFR(CKD) >90 (>60 ml/min/1.73 sqM); Potassium 3.1 mmol/L (3.5-5.1); Sodium 136 mmol/L (137-145); Total Bilirubin 0.4 mg/dL (0.2-1.3); Total Protein 6.8 g/dL (6.3-8.2)
[2021-05-14 05:38] LABS: Alcohol 113 mg/dL
[2021-05-14 06:16] VITALS: BP 112/82; PULSE 92
[2021-05-14] MEDS ORDERED: POTASSIUM CHLORIDE ER 20 MEQ TAB.ER PO STA (06:42)
[2021-05-14] MEDS ORDERED: THIAMINE 100 MG TAB PO SCH (17:30)
== END 2021-05-14 07:02 | disposition home or self-care (01) ==
LOC: EC 03:58
DX: F10.239 Alcohol dependence with withdrawal, unspecified (principal); F41.9 Anxiety disorder, unspecified; F32.9 Major depressive disorder, single episode, unspecified; Y90.5 Blood alcohol level of 100-119 mg/100 ml
CPT/HCPCS: 99285; 96374; 36415; 93005; 80053; 83735; 84484; 85025; 85610; 85730; 80320; 71046; J2060

== ENCOUNTER 2021-06-27 14:29 | Emergency (ER) | payer OTHER ==
[2021-06-27] MEDS ORDERED: SODIUM CHLORIDE 0.9% 1,000 ML IV STA (14:37)
[2021-06-27] MEDS ORDERED: ASPIRIN 600 MG SUPP RECTAL STA (14:38)
[2021-06-27] MEDS ORDERED: ASPIRIN 300 MG SUPP RECTAL STA (14:44)
--- NOTE | 2021-06-27 14:48 | ED ---
General Adult HPI - General Stated complaint: etoh Time Seen by Provider: 06/27/21 14:37 - History of Present Illness Initial comments: Dictation was produced using [employer] dictation software. please excuse any grammatical, word or spelling errors. Chief Complaint: 60-year-old male brought into the emergency department for witnessed arrest. History of Present Illness: 60-year-old male brought in to the emergency department for witnessed arrest, return of spontaneous circulation and EKG concerning for ST segment elevation DC. Patient is brought in by EMS. Patient unable to provide history. Patient was allegedly in front of a liquor store when he became unresponsive. Bystanders began CPR. 911 was called. Fire department was on scene and put on their right ear device. No shock advised. EMS arrived on scene and provided patient with epinephrine. Patient was under Jackson device. EMS performed an EKG with findings concerning for ST segment elevation DC. EMS reports that yesterday patient had a shoulder surgery. EMS reports the patient had normal blood sugar. Unable to obtain ROS and urinary to mental status. PHYSICAL EXAM: General Impression: Intubated, gagging HEENT: Normocephalic atraumatic, extra-ocular movements intact, pupils equal and reactive to light bilaterally Cardiovascular: Tachycardic Chest: Bilateral breath sounds, intubated Abdomen: abdomen soft, non-tender, non-distended, no organomegaly Musculoskeletal: Pulses present and equal in all extremities, no peripheral edema Neurological: CN II-XII grossly intact, no focal motor or sensory deficits noted Skin: Diaphoretic ED course: 60-year-old male brought into the emergency department after witnessed arrest. He had some rounds of CPR. No shock advised. Return of spontaneous circulation was achieved. Patient was intubated by EMS. Their EKG was concerning for ST segment elevation DC. I was not given the EKG for review. Patient arrived in trauma bay #1. Patient was fighting the vent. Patient given Versed and fentanyl for sedation. EKG was performed showing anterior ST segment elevation DC. There is ST elevations in V1 to V3. With reciprocal depressions in V4 to V6. She was concerned that perhaps patient had an arrest secondary to myocardial infarction. Code STEMI was paged [phone]. I did receive a call back from Dr. Farmer. He states he is unable to take the patient for cardiac catheterization because he had just started a pacemaker. His recommendation was transferred to [facility] if patient can arrive there within 30 minutes. Medications and establish with Dr. Valladares after several minute hold on the [facility] transfer line. Dr. Valladares was willing to accept patient care for transfer. It is believed that PCI can be commenced within 120 minutes. EKG interpretation: Ventricular rate 158, ND interval 1:30, QRS 104, QTc 385[address] ST segment elevations in V1 to V3 with reciprocal changes in V4 to V6. - Related Data Home Medications Medication Instructions Recorded Confirmed Citalopram Hydrobromide [CeleXA] 40 mg PO DAILY 03/25/21 03/25/21 Ibuprofen [Motrin] 800 mg PO Q8H PRN 03/25/21 03/25/21 QUEtiapine [SEROquel] 50 mg PO HS 03/25/21 03/25/21 Previous Rx's Medication Instructions Recorded Folic Acid 1 mg PO DAILY #30 tab 03/30/21 Thiamine [Vitamin B-1] 100 mg PO BID-W/MEALS #60 tab 03/30/21 chlordiazePOXIDE HCl [Librium] 25 mg PO TID #45 cap 03/30/21 Magnesium Oxide 400 mg PO DAILY #20 tablet 05/14/21 chlordiazePOXIDE HCl [Librium] 25 mg PO QID 3 Days #12 capsule 05/14/21 Allergies Allergy/AdvReac Type Severity Reaction Status Date / Time No Known Allergies Allergy Verified 03/25/21 19:09 Review of Systems ROS Statement: Those systems with pertinent positive or pertinent negative responses have been documented in the HPI. ROS Other: All systems not noted in ROS Statement are negative. Past Medical History Past Medical History: Musculoskeletal Disorder Additional Past Medical History / Comment(s): ETOH abuse, DTs, chronic low back pain/herniated discs/scoliosis/spinal stenosis, right shoulder History of Any Multi-Drug Resistant Organisms: None Reported Past Surgical History: Orthopedic Surgery Additional Past Surgical History / Comment(s): R ankle fx with surgical repair- pin in and out, back injections at [facility]. Past Anesthesia/Blood Transfusion Reactions: No Reported Reaction Additional Past Anesthesia/Blood Transfusion Reaction / Comment(s): Pt has never received blood. Past Psychological History: Anxiety, Depression Smoking Status: Never smoker Past Alcohol Use History: Abuse, Daily, Heavy Past Drug Use History: None Reported - Past Family History Father Family Medical History: Dementia Additional Family Medical History / Comment(s): Father is . Mother Family Medical History: Cancer Additional Family Medical History / Comment(s): Mother at age 64yrs of pancreatic cancer. Critical Care Time Critical Care Time: Yes Total Critical Care Time: 33 Disposition Clinical Impression: STEMI (ST elevation myocardial infarction) Disposition: OTHER INSTITUTION NOT DEFINED Condition: Critical Referrals: None,Stated [Primary Care Provider] - 1-2 days - Out of Hospital Transfer - Req. Specs Out of Hospital Transfer - Requested Specifics: Other Emergency Center ([facility])
[2021-06-27] MEDS ORDERED: MIDAZOLAM 1 MG/ML 5 ML VIAL IV STA (14:50)
[2021-06-27] MEDS ORDERED: fentaNYL (PF) 50 MCG/ML 2 ML AMP IVP STA ×2 (14:50→18:23)
[2021-06-27 15:01] VITALS: RESP 18; TEMP 97.7
[2021-06-27] MEDS ORDERED: HEPARIN SODIUM 1,000 UN/ML (10ML VL) IV ONE (15:01)
[2021-06-27] MEDS ORDERED: HEPARIN SODIUM 1,000 UN/ML (10ML VL) IV PRN (15:01)
[2021-06-27] MEDS ORDERED: HEPARIN SOD,PORK IN 0.45% NACL 25,000 UNIT in 0.45% NACL 1 250ML.BAG IV SCH (15:15)
--- NOTE | 2021-06-27 15:15 | XR ---
EXAMINATION TYPE: XR chest 1V portable DATE OF EXAM: 06/27/2021 COMPARISON: 05/14/2021 HISTORY: Chest pain TECHNIQUE: Single view FINDINGS: Endotracheal tube is 2.5 cm from the alpesh. There is pulmonary interstitial and airspace e rafal. There is some elevation of the right diaphragm. There are chest leads. IMPRESSION: Endotracheal tube in fairly good position. Pulmonary edema appears increased compared to old exam. Chronic elevation of the right diaphragm consistent with paralysis.
[2021-06-27] MEDS ORDERED: MIDAZOLAM 1 MG/ML 5 ML VIAL IVP STA (18:24)
[2021-06-27 18:40] VITALS: BP 87/44; PULSE 88
== END 2021-06-27 15:49 | disposition other institution (70) ==
LOC: EC 14:29
DX: I21.3 ST elevation (STEMI) myocardial infarction of unspecified site (principal); F32.9 Major depressive disorder, single episode, unspecified; F41.9 Anxiety disorder, unspecified; Z79.899 Other long term (current) drug therapy
CPT/HCPCS: 94002; 93005; 87070; 87205; 71045; 99291; 96374; 96375; 96376 ×2; J2250; J3010; J2704

== ENCOUNTER → 2021-08-28 | Outpatient (CLI) | payer OTHER ==
--- NOTE | 2021-08-28 16:03 | XR ---
EXAMINATION TYPE: XR chest 2V DATE OF EXAM: 08/28/2021 COMPARISON: 06/27/2021 INDICATION: Cough TECHNIQUE: Single frontal view of the chest is obtained. FINDINGS: The heart size is normal. The pulmonary vasculature is normal. Mild scattered infiltrates are present. These may be more focal lower lobe. Findings are nonspecific but can be related to atypical pneumonia. IMPRESSION: 1. Scattered bilateral lung infiltrates more focal left lower lobe. Consider atypical pneumonia. Diff erential diagnosis could include aspiration pneumonia and atelectasis.
== END | disposition home or self-care (01) ==
LOC: RADXRMAIN 14:14
PROVIDERS: ATTEND Family Medicine
DX: R91.8 Other nonspecific abnormal finding of lung field (principal)
CPT/HCPCS: 71046

== ENCOUNTER → 2021-09-24 | Outpatient (CLI) | payer OTHER ==
--- NOTE | 2021-09-24 10:14 | FL ---
EXAMINATION TYPE: FL sniff test without CXR DATE OF EXAM: 09/24/2021 COMPARISON: NONE HISTORY: Diaphragm paralysis TECHNIQUE: Fluoroscopy. FINDINGS: There is normal movement of the left hemidiaphragm upon inspiration and expiration. Appears to be right hemidiaphragmatic paresis. 3 images are submitted and 38 seconds of fluoroscopy utilized. IMPRESSION: 1. Right hemidiaphragmatic paresis
--- NOTE | 2021-09-24 10:18 | CT ---
EXAMINATION TYPE: CT chest wo con DATE OF EXAM: 09/24/2021 COMPARISON: None HISTORY: Pulmonary Fibrosis CT DLP: 200.[address] of the chest was performed with lung and mediastinal window settings submitted. The la ck of contrast limits evaluation of the vascular, mediastinal and parenchymal structures including th e upper abdomen. LUNGS: There is subpleural fibrosis noted throughout both lung urbano greatest on the right. At the l yusef bases there is a honeycombing noted. No evidence for focal consolidation. Bilateral lower lobe br onchiectatic change. Lung volumes are diminished. No nodule or mass seen. Elevation right hemidiaphra gm to the level of the right hilum. MEDIASTINUM/VI: Thoracic aorta is of normal caliber with limited evaluation given lack of contrast . The heart is not enlarged. No evidence for mediastinal mass. No lymph nodes greater than 1cm. UPPER ABDOMEN: No significant abnormality is seen. OTHER: No significant other abnormality. IMPRESSION: 1. Findings may reflect idiopathic pulmonary fibrosis.
[2021-09-24 12:06] LABS: C Reactive Protein <0.5 mg/dL (<1.0)
[2021-09-24 15:54] LABS: Anti-Smith Ab Interp NEGATIVE (NEGATIVE)
[2021-09-25 06:21] LABS: Rheumatoid Factor, Qnt <10 IU/mL (0-15)
== END | disposition home or self-care (01) ==
LOC: RADCTMAIN 09:17
PROVIDERS: ATTEND Internal Medicine Critical Care Medicine
DX: J84.10 Pulmonary fibrosis, unspecified (principal); J98.6 Disorders of diaphragm
CPT/HCPCS: 71250; 76000; 85652; 86001; 86038; 86140; 86235; 86431; 86606; 86609

== ENCOUNTER 2022-02-03 15:19 | Observation (INO) | payer OTHER ==
[2022-02-03] MEDS ORDERED: SODIUM CHLORIDE 0.9% 1,000 ML IV ONE ×2 (15:45→17:56)
[2022-02-03] MEDS ORDERED: SODIUM CHLORIDE 0.9% 500 ML 500 ML IV ONE (15:45)
[2022-02-03] MEDS ORDERED: ONDANSETRON 4 MG/2 ML VIAL IVP STA (15:46)
--- NOTE | 2022-02-03 15:54 | ED ---
General Adult HPI - General Stated complaint: weakness Time Seen by Provider: 02/03/22 15:20 Source: patient, RN notes reviewed, old records reviewed - History of Present Illness Initial comments: This is a 61-year-old male who states that he ran out of morphine because the pharmacy made a mistake. Patient states he's been out of it for 4 days. Patient states his pain doctor would not prescribe anymore. Patient states he started drinking heavily because he has tried a Compazine for not having morphine. Patient states she's been vomiting and not been eating over the last 4 days. He states he feels terrible. Patient denies any chest pain palpitations difficulty breathing shortness of breath per patient denies any abd ominal pain patient denies any diarrhea. Patient denies any recent fever chills or cough. Patient denies any injury or trauma. - Related Data Home Medications Medication Instructions Recorded Confirmed Citalopram Hydrobromide [CeleXA] 40 mg PO DAILY 03/25/21 02/03/22 QUEtiapine [SEROquel] 50 mg PO HS 03/25/21 02/03/22 Morphine Sulfate Ir [MSIR] 15 mg PO QID 02/03/22 02/03/22 hydrOXYzine HCL [Atarax] 10 mg PO QID PRN 02/03/22 02/03/22 traMADol HCL 50 mg PO QID 02/03/22 02/03/22 Previous Rx's Medication Instructions Recorded Folic Acid 1 mg PO DAILY #30 tab 03/30/21 Allergies Allergy/AdvReac Type Severity Reaction Status Date / Time No Known Allergies Allergy Verified 02/03/22 18:13 Review of Systems ROS Statement: Those systems with pertinent positive or pertinent negative responses have been documented in the HPI. ROS Other: All systems not noted in ROS Statement are negative. Past Medical History Past Medical History: Musculoskeletal Disorder Additional Past Medical History / Comment(s): ETOH abuse, DTs, chronic low back pain/herniated discs/scoliosis/spinal stenosis, right shoulder History of Any Multi-Drug Resistant Organisms: None Reported Past Surgical History: Orthopedic Surgery Additional Past Surgical History / Comment(s): R ankle fx with surgical repair- pin in and out, back injections at [facility]. Past Anesthesia/Blood Transfusion Reactions: No Reported Reaction Additional Past Anesthesia/Blood Transfusion Reaction / Comment(s): Pt has never received blood. Past Psychological History: Anxiety, Depression Smoking Status: Never smoker Past Alcohol Use History: Abuse, Daily, Heavy Past Drug Use History: None Reported - Past Family History Father Family Medical History: Dementia Additional Family Medical History / Comment(s): Father is . Mother Family Medical History: Cancer Additional Family Medical History / Comment(s): Mother at age 64yrs of pancreatic cancer. General Exam - General Exam Comments Initial Comments: GENERAL: Patient is well-developed and well-nourished. Patient is nontoxic and well- hydrated and is in mild distress. Patient does appear intoxicated. ENT: Neck is soft and supple. No significant lymphadenopathy is noted. Oropharynx is clear. Moist mucous membranes. Neck has full range of motion without eliciting any pain. EYES: The sclera were anicteric and conjunctiva were pink and moist. Extraocular movements were intact and pupils were equal round and reactive to light. Eyelids were unremarkable. PULMONARY: Unlabored respirations. Good breath sounds bilaterally. No audible rales rhonchi or wheezing was noted. CARDIOVASCULAR: There is a regular rate and rhythm without any murmurs gallops or rubs. ABDOMEN: Soft and nontender with normal bowel sounds. SKIN: Skin is clear with no lesions or rashes and otherwise unremarkable. NEUROLOGIC: Patient is alert and oriented x3. Cranial nerves II through XII are grossly intact. Motor and sensory are also intact. Normal speech, volume and content. Symmetrical smile. MUSCULOSKELETAL: Normal extremities with adequate strength and full range of motion. LYMPHATICS: No significant lymphadenopathy is noted PSYCHIATRIC: Normal psychiatric evaluation. Course Vital Signs 02/03/22 02/03/22 16:02 18:55 Temperature 98.7 F Pulse Rate 14 L 107 H Respiratory 14 14 Rate Blood Pressure 133/95 134/89 O2 Sat by Pulse 98 100 Oximetry Medical Decision Making - Medical Decision Making EKG shows sinus tachycardia at 106 bpm PA interval 260 QRS is 92 QT interval 370 QTC is 349. Patient's EKG shows EKG does show some T-wave inversions in V1 through 3. Patient's alcohol was 269. Patient did not feel safe going home. I spoke with some physicians agreed to admit the patient admitted the patient wrote admitting orders. repeat EKG was done shows sinus tachycardia 110 bpm PA interval is on a 52 QRS is under 1 Q-T intervals 291 QTC is 356 per patient's EKG shows no ST segment elevation or depression. - Lab Data Result diagrams: 02/03/22 16:56 02/03/22 16:56 Lab Results 02/03/22 02/03/22 02/03/22 Range/Units 16:22 16:56 16:56 WBC 10.0 (3.8-10.6) k/uL RBC 4.62 (4.30-5.90) m/uL Hgb 14.3 (13.0-17.5) gm/dL Hct 42.9 (39.0-53.0) % MCV 92.8 (80.0-100.0) fL MCH 30.8 (25.0-35.0) pg MCHC 33.2 (31.0-37.0) g/dL RDW 13.2 (11.5-15.5) % Plt Count 415 (150-450) k/uL MPV 6.6 Neutrophils % 79 % Lymphocytes % 15 % Monocytes % 4 % Eosinophils % 0 % Basophils % 0 % Neutrophils # 7.9 H (1.3-7.7) k/uL Lymphocytes # 1.5 (1.0-4.8) k/uL Monocytes # 0.4 (0-1.0) k/uL Eosinophils # 0.0 (0-0.7) k/uL Basophils # 0.0 (0-0.2) k/uL PT 9.7 (9.0-12.0) sec INR 0.9 (<1.2) APTT 25.8 (22.0-30.0) sec Sodium (137-145) mmol/L Potassium (3.5-5.1) mmol/L Chloride (98-107) mmol/L Carbon Dioxide (22-30) mmol/L Anion Gap mmol/L BUN (9-20) mg/dL Creatinine (0.66-1.25) mg/dL Est GFR (CKD-EPI)AfAm (>60 ml/min/1.73 sqM) Est GFR (CKD-EPI)NonAf (>60 ml/min/1.73 sqM) Glucose (74-99) mg/dL POC Glucose (mg/dL) 119 H (75-99) mg/dL POC Glu Traffic Or System Dispatcher ID Hilda Junior Calcium (8.4-10.2) mg/dL Magnesium (1.6-2.3) mg/dL Total Bilirubin (0.2-1.3) mg/dL AST (17-59) U/L ALT (4-49) U/L Alkaline Phosphatase (38-126) U/L Total Protein (6.3-8.2) g/dL Albumin (3.5-5.0) g/dL Serum Alcohol mg/dL 02/03/22 Range/Units 16:56 WBC (3.8-10.6) k/uL RBC (4.30-5.90) m/uL Hgb (13.0-17.5) gm/dL Hct (39.0-53.0) % MCV (80.0-100.0) fL MCH (25.0-35.0) pg MCHC (31.0-37.0) g/dL RDW (11.5-15.5) % Plt Count (150-450) k/uL MPV Neutrophils % % Lymphocytes % % Monocytes % % Eosinophils % % Basophils % % Neutrophils # (1.3-7.7) k/uL Lymphocytes # (1.0-4.8) k/uL Monocytes # (0-1.0) k/uL Eosinophils # (0-0.7) k/uL Basophils # (0-0.2) k/uL PT (9.0-12.0) sec INR (<1.2) APTT (22.0-30.0) sec Sodium 139 (137-145) mmol/L Potassium 4.6 (3.5-5.1) mmol/L Chloride 100 (98-107) mmol/L Carbon Dioxide 19 L (22-30) mmol/L Anion Gap 20 mmol/L BUN 12 (9-20) mg/dL Creatinine 0.74 (0.66-1.25) mg/dL Est GFR (CKD-EPI)AfAm >90 (>60 ml/min/1.73 sqM) Est GFR (CKD-EPI)NonAf >90 (>60 ml/min/1.73 sqM) Glucose 102 H (74-99) mg/dL POC Glucose (mg/dL) (75-99) mg/dL POC Glu Traffic Or System Dispatcher ID Calcium 9.0 (8.4-10.2) mg/dL Magnesium 2.1 (1.6-2.3) mg/dL Total Bilirubin 0.7 (0.2-1.3) mg/dL AST 65 H (17-59) U/L ALT 35 (4-49) U/L Alkaline Phosphatase 124 (38-126) U/L Total Protein 8.4 H (6.3-8.2) g/dL Albumin 4.8 (3.5-5.0) g/dL Serum Alcohol 269 H* mg/dL Disposition Clinical Impression: Alcohol intoxication, Opiate withdrawal Disposition: ADMITTED IP TO THIS HOSP Referrals: Brian Arzola MD [Primary Care Provider] - 1-2 days Time of Disposition: 17:43
[2022-02-03 16:33] LABS: Glucose,Whole Blood 119 mg/dL (75-99)
[2022-02-03 17:05] LABS: Basophils % (A) 0 %; Eosinophils % (A) 0 %; HCT 42.9 % (39.0-53.0); HGB 14.3 gm/dL (13.0-17.5); Lymphocytes # (A) 1.5 k/uL (1.0-4.8); Lymphocytes % (A) 15 %; MCH 30.8 pg (25.0-35.0); MCHC 33.2 g/dL (31.0-37.0); MCV 92.8 fL (80.0-100.0); Mean Platelet Volume 6.6; Monocytes # (A) 0.4 k/uL (0-1.0); Monocytes % (A) 4 %; Neutrophils # (A) 7.9 k/uL (1.3-7.7); Neutrophils % (A) 79 %; Platelet Count 415 k/uL (150-450); RBC 4.62 m/uL (4.30-5.90); RDW 13.2 % (11.5-15.5)
[2022-02-03 17:10] LABS: INR 0.9 (<1.2); Partial Thromboplastin Time 25.8 sec (22.0-30.0); Prothrombin Time 9.7 sec (9.0-12.0)
[2022-02-03 17:12] LABS: ALT 35 U/L (4-49); AST 65 U/L (17-59); African American GFR (CKD) >90 (>60 ml/min/1.73 sqM); Albumin 4.8 g/dL (3.5-5.0); Alkaline Phosphatase 124 U/L (38-126); Anion Gap 20 mmol/L; Blood Urea Nitrogen 12 mg/dL (9-20); Carbon Dioxide 19 mmol/L (22-30); Chloride 100 mmol/L (98-107); Glucose 102 mg/dL (74-99); Magnesium 2.1 mg/dL (1.6-2.3); Non-African American GFR(CKD) >90 (>60 ml/min/1.73 sqM); Potassium 4.6 mmol/L (3.5-5.1); Sodium 139 mmol/L (137-145); Total Bilirubin 0.7 mg/dL (0.2-1.3); Total Protein 8.4 g/dL (6.3-8.2)
[2022-02-03 17:20] LABS: Alcohol 269 mg/dL
[2022-02-03] MEDS ORDERED: LORazepam 2 MG/ML INJ IV PRN ×2 (17:55)
[2022-02-03] MEDS ORDERED: LORazepam 2 MG/ML INJ IV STA ×2 (18:19→19:01)
[2022-02-03] MEDS ORDERED: MORPHINE SULFATE 4 MG/ML SYRINGE IVP STA (18:19)
[2022-02-03] MEDS ORDERED: hydrOXYzine HCL 10 MG TAB PO PRN (18:25)
[2022-02-03] MEDS ORDERED: MORPHINE SULFATE IR 15 MG TABLET PO SCH (18:30)
[2022-02-03] MEDS ORDERED: MORPHINE SULFATE ER 15 MG TABLET PO SCH (18:30)
--- NOTE | 2022-02-03 19:19 | P.HPIM ---
History of Present Illness H&P Date: 02/03/22 Chief Complaint: alcohol intoxication Patient is a 61-year-old male with PMH of pulmonary fibrosis, chronic respiratory failure on 2 L home O2, history of cardiac arrest, history of shoulder surgery and spinal stenosis that presents to the ED for intractable pain and generalized weakness. Patient reports seeing Dr. Casillas as a pain specialist for his shoulder pain and spinal stenosis. He shows me prescriptions for Morphine 15 mg PO QID. More recently, his filled his last script and [facility] was only able to fill 50 tablets. [facility] refused to fill out the reminder when the patient ran out. Since running out, he has been self- medicating with alcohol. He reports drinking a fifth a day over the past 13 days. He reports withdrawal symptoms when he does not drink. He denies any history of seizures. He denies any headache, lower extremity edema, nausea vomi ting, fever or chills, cough, chest pain, shortness of breath, palpitations, changes in urination or bowel habits. No changes in appetite or weight. He denies any dizziness, numbness/weakness/tingling of the extremity is. In the ED, he was noted to be tachycardic with heart rate in the 110s. He was also at his baseline 2 L nasal cannula to maintain O2 saturation greater than 92%. Vital signs were otherwise stable. CBC was unremarkable. Coagulation profile negative. CMP showed a bicarb of 19, glucose 102, AST of 65. Serum alcohol level was 269. Patient is admitted for intractable pain and alcohol intoxication with impending withdrawal. Review of systems was performed and is negative except above. General: [non toxic], [no distress], [appears at stated age] Derm: [warm], [dry] Head: [atraumatic], [normocephalic], [symmetric] Eyes: [EOMI], [no lid lag], [anicteric sclera] Mouth: [no lip lesion], [mucus membranes moist] Cardiovascular: [Tachycardic], [no murmur] Lungs: [CTA bilateral], [no rhonchi, no rales] , [no accessory muscle use] Abdominal: [soft], [ nontender to palpation], [no guarding], [no appreciable organomegaly] Ext: [no gross muscle atrophy], [no edema], [no contractures] Neuro: [ CN II-XI grossly intact], [no focal neuro deficits] Psych: [Alert], [oriented], [appropriate affect] #Acute alcohol intoxication with impending withdrawal #Acute on chronic lower back pain #Metabolic acidosis #Transaminitis #Chronic respiratory failure on 2 L hence #Depression Patient presents with acute alcohol intoxication. He'll be started on CIWA protocol and given Ativan as needed. Start Thiamine. Start normal saline at 75 mL per hour. Start telemetry monitoring. Patient sees painter touch up Dr. Casillas. He is currently out of Morphine tablets. He will be restarted on Morphine IR 15 mg PO QID. Morphine 4 mg IV Q4H PRN for breathrough pain ordered. Dr. Casillas will be consulted. PT and OT will be consulted to work with this patient. His transaminitis and metabolic acidosis is likely related to chronic alcohol abuse. CMP will be repeated tomorrow morning. Continue supplemental O2 to maintain O2 saturation greater than 92%. Patient follows Dr. Nugent in the outpatient setting. Restart Citalopram for history of depression. DVT prophylaxis: [Heparin] Discussed with: [Patient and , ED physician] Anticipated discharge: [1-2 days] Anticipated discharge place: [Home] A total of [45] minutes was spent on the care of this complex patient more than 50% of the time was spent in counseling and care coordination. Patient names his decision maker if he cant make decisions for himself. Patient would like to be FULL CODE. Past Medical History Past Medical History: Musculoskeletal Disorder Additional Past Medical History / Comment(s): ETOH abuse, DTs, chronic low back pain/herniated discs/scoliosis/spinal stenosis, right shoulder History of Any Multi-Drug Resistant Organisms: None Reported Past Surgical History: Orthopedic Surgery Additional Past Surgical History / Comment(s): R ankle fx with surgical repair- pin in and out, back injections at [facility]. Past Anesthesia/Blood Transfusion Reactions: No Reported Reaction Additional Past Anesthesia/Blood Transfusion Reaction / Comment(s): Pt has never received blood. Past Psychological History: Anxiety, Depression Smoking Status: Never smoker Past Alcohol Use History: Abuse, Daily, Heavy Past Drug Use History: None Reported - Past Family History Father Family Medical History: Dementia Additional Family Medical History / Comment(s): Father is . Mother Family Medical History: Cancer Additional Family Medical History / Comment(s): Mother at age 64yrs of pancreatic cancer. Medications and Allergies Home Medications Medication Instructions Recorded Confirmed Type Citalopram Hydrobromide [CeleXA] 40 mg PO DAILY 03/25/21 02/03/22 History QUEtiapine [SEROquel] 50 mg PO HS 03/25/21 02/03/22 History Folic Acid 1 mg PO DAILY #30 tab 03/30/21 02/03/22 Rx Morphine Sulfate Ir [MSIR] 15 mg PO QID 02/03/22 02/03/22 History hydrOXYzine HCL [Atarax] 10 mg PO QID PRN 02/03/22 02/03/22 History traMADol HCL 50 mg PO QID 02/03/22 02/03/22 History Allergies Allergy/AdvReac Type Severity Reaction Status Date / Time No Known Allergies Allergy Verified 02/03/22 18:13 Physical Exam Vitals: Vital Signs Temp Pulse Resp BP Pulse Ox 02/03/22 16:02 98.7 F 14 L 14 133/95 98 Intake and Output 02/03/22 02/03/22 02/03/22 06:59 14:59 22:59 Other: Weight 58.06 kg Results CBC & Chem 7: 02/03/22 16:56 02/03/22 16:56 Labs: Abnormal Lab Results - Last 24 Hours (Table) 02/03/22 02/03/22 02/03/22 Range/Units 16:22 16:56 16:56 Neutrophils # 7.9 H (1.3-7.7) k/uL Carbon Dioxide 19 L (22-30) mmol/L Glucose 102 H (74-99) mg/dL POC Glucose (mg/dL) 119 H (75-99) mg/dL AST 65 H (17-59) U/L Total Protein 8.4 H (6.3-8.2) g/dL Serum Alcohol 269 H* mg/dL
[2022-02-03] MEDS: LORazepam 2 MG/ML INJ IV STA ×2 (19:30→21:04)
[2022-02-03] MEDS ORDERED: THIAMINE 100 MG/ML 2 ML VIAL IM STA (19:33)
[2022-02-03] MEDS ORDERED: QUEtiapine 50 MG TAB PO SCH (21:00)
[2022-02-03] MEDS: MORPHINE SULFATE IR 15 MG TABLET PO SCH (22:39)
[2022-02-03] MEDS: HEPARIN SODIUM,PORCINE/PF 5,000 UNIT/0.5 ML SYRINGE SQ SCH (22:40)
[2022-02-04] MEDS: LORazepam 2 MG/ML INJ IV PRN ×2 (05:17→08:25)
[2022-02-04 07:36] VITALS: TEMP 98.4
[2022-02-04] MEDS: MORPHINE SULFATE IR 15 MG TABLET PO SCH ×3 (07:53→17:10)
[2022-02-04] MEDS: THIAMINE 100 MG TAB PO SCH ×2 (07:53→17:10)
[2022-02-04] MEDS: HEPARIN SODIUM,PORCINE/PF 5,000 UNIT/0.5 ML SYRINGE SQ SCH ×2 (07:54→16:23)
[2022-02-04] MEDS ORDERED: CITALOPRAM HYDROBROMIDE 20 MG TAB PO SCH (09:00)
[2022-02-04] MEDS ORDERED: FOLIC ACID 1 MG TAB PO SCH (09:00)
--- NOTE | 2022-02-04 10:10 | P.CONS ---
History of Present Illness - Chief Complaint Medical debility and chronic pain - History of Present Illness I had the opportunity to see patient for inpatient rehab consultation with regard to medical debility and chronic pain. Patient is known to me for chronic pain management as outpatient. Patient is a has been made aware again of opiate agreement cause that includes short prescriptions. I have also made him aware of Government and insurance rules and regulations which did relate pain medications should be discontinued in patients with demonstrated substance abuse, including alcohol. Patient does have history of alcohol abuse. In fact patient ran short of his maintenance medication of MSIR 15 4 times a day and was given Ultram 50 4 times a day instead. He then self medicated with the alcohol. He is now admitted for alcohol related problems. History of pulmonary fibrosis and respiratory failure. PT and OT prescribed as are the Ultram and morphine. Previous functional history as elicited from patient: 61-year-old right-handed white male who is lives in one floor home with . They share the cooking and laundry and does the driving for at least the last year. Both are retired. Patient independent with standing shower and gait with standard cane which she has been using on and off since [address] Pride. Denies tobacco and has a history of the alcohol abuse. Review of Systems Review of systems: ENT: Denies sneezes or discharge. Eyes: Denies discharge or photophobia. Cardiac: Denies chest pain or palpitation. Pulmonary: Denies cough or shortness of breath. Gastrointestinal: Denies nausea, emesis, constipation, diarrhea. Genitourinary: Denies discharge or frequency. Musculoskeletal: Long-standing pain in right shoulder and back. Neurologic: Denies motor or sensory change. Endocrine: Denies shakes or sweats. Oncology: Denies cancers. Dermatologic: Denies rash, itching, pruritus. ALLERGY/immunology: Denies sneezes, rashes. Past Medical History Past Medical History: Musculoskeletal Disorder Additional Past Medical History / Comment(s): ETOH abuse, DTs, chronic low back pain/herniated discs/scoliosis/spinal stenosis, right shoulder History of Any Multi-Drug Resistant Organisms: None Reported Past Surgical History: Orthopedic Surgery Additional Past Surgical History / Comment(s): R ankle fx with surgical repair- pin in and out, back injections at [facility]. Past Anesthesia/Blood Transfusion Reactions: No Reported Reaction Additional Past Anesthesia/Blood Transfusion Reaction / Comm: Pt has never received blood. Past Psychological History: Anxiety, Depression Additional Psychological History / Comment(s): Pt resides with his spouse. He is independent. He is a logging truck driver. Smoking Status: Never smoker Past Alcohol Use History: Abuse, Daily, Heavy Additional Past Alcohol Use History / Comment(s): Pt drinks a pint of alcohol a night. Past Drug Use History: None Reported Additional Drug Use History / Comment(s): states that he was abusing prescribed [place] and Ambien. Dr. Wheat recently stopped prescribing these medications. - Past Family History Father Family Medical History: Dementia Additional Family Medical History / Comment(s): Father is . Mother Family Medical History: Cancer Additional Family Medical History / Comment(s): Mother at age 64yrs of pancreatic cancer. Medications and Allergies Home Medications Medication Instructions Recorded Confirmed Type Citalopram Hydrobromide [CeleXA] 40 mg PO DAILY 03/25/21 02/03/22 History QUEtiapine [SEROquel] 50 mg PO HS 03/25/21 02/03/22 History Folic Acid 1 mg PO DAILY #30 tab 03/30/21 02/03/22 Rx Morphine Sulfate Ir [MSIR] 15 mg PO QID 02/03/22 02/03/22 History hydrOXYzine HCL [Atarax] 10 mg PO QID PRN 02/03/22 02/03/22 History traMADol HCL 50 mg PO QID 02/03/22 02/03/22 History Allergies Allergy/AdvReac Type Severity Reaction Status Date / Time No Known Allergies Allergy Verified 02/03/22 18:13 Physical Exam Vitals: Vital Signs Temp Pulse Pulse Resp BP BP Pulse Ox 02/04/22 07:35 98.4 F 106 H 16 136/86 98 02/04/22 01:39 98.3 F 117 H 18 122/73 98 02/03/22 21:31 98.3 F 111 H 18 120/77 98 02/03/22 21:12 113 H 14 133/87 95 02/03/22 18:55 107 H 14 134/89 100 02/03/22 16:02 98.7 F 14 L 14 133/95 98 Intake and Output 02/03/22 02/04/22 02/04/22 22:59 06:59 14:59 Other: Voiding Method Urinal # Voids 1 Weight 58.06 kg Skin: Good color, texture, turgor. General: Thin build and comfortable appearance. Appears older than stated age. Head: Normocephalic, atraumatic. Eyes: Symmetric. Pupils equal round. Ears: Symmetric. Hearing within normal limits. Mouth: Clear. Neck: Supple. Carotid without bruit. Cardiac: Regular rate and rhythm. Lungs: Clear anteriorly and posteriorly. Abdomen: Soft active nontender. Extremities: Normal tone. Neurological: Mental status: Alert, cooperative, pleasant. Cranial nerves: Symmetric facial tone and trapezius. Motor: Normal strength and isolation all 4 limbs. Sensation: Intact throughout. DTRs: Symmetric and equal throughout. Mobility: Reports receives standby assist or supervision from nursing staff for mobility within room including to reclining chair. Results CBC & Chem 7: 02/03/22 16:56 02/03/22 16:56 Labs: Abnormal Lab Results - Last 24 Hours (Table) 02/03/22 02/03/22 02/03/22 Range/Units 16:22 16:56 16:56 Neutrophils # 7.9 H (1.3-7.7) k/uL Carbon Dioxide 19 L (22-30) mmol/L Glucose 102 H (74-99) mg/dL POC Glucose (mg/dL) 119 H (75-99) mg/dL AST 65 H (17-59) U/L Total Protein 8.4 H (6.3-8.2) g/dL Serum Alcohol 269 H* mg/dL Assessment and Plan (1) Alcoholic intoxication Current Visit: Yes Status: Acute Code(s): F10.129 - ALCOHOL ABUSE WITH INTOXICATION, UNSPECIFIED SNOMED Code(s): 97687338 (2) Opiate withdrawal Current Visit: Yes Status: Acute Code(s): F11.23 - OPIOID DEPENDENCE WITH WITHDRAWAL SNOMED Code(s): 66966594 (3) Alcohol abuse Current Visit: No Status: Acute Code(s): F10.10 - ALCOHOL ABUSE, UNCOMPLICATED SNOMED Code(s): 03889510 (4) Alcohol withdrawal Current Visit: No Status: Acute Code(s): F10.239 - ALCOHOL DEPENDENCE WITH WITHDRAWAL, UNSPECIFIED SNOMED Code(s): 730523786 (5) Alcoholic ketoacidosis Current Visit: No Status: Acute Code(s): E87.2 - ACIDOSIS SNOMED Code(s): 40326004 (6) Opiate dependence Current Visit: No Status: Acute Code(s): F11.20 - OPIOID DEPENDENCE, UNCOMPLICATED SNOMED Code(s): 19320000 Plan: Comments and plan: Patient known to me for chronic pain management and is already on his maintenance program MSIR 15 4 times a day. He is on Ultram 50 4 times a day as he received short prescription. He has prescription MS IR 15 aw aiting him February 13. Patient should be set up with enough pain medication at home until then. Patient currently hospitalized for debility related to the above as well and has PT and OT prescribed. We'll follow therapies with yourself for possible need and benefit of inpatient rehab. Should note that any possible rehab admission will be subject to patient's insurance and their policies and rules. Should emphasize that I discussed with patient demonstrated substance abuse including alcohol abuse is criteria for discontinuing opiate prescription.
--- NOTE | 2022-02-04 14:06 | P.DS ---
Providers Date of admission: 02/03/22 17:56 Expected date of discharge: 02/04/22 Attending physician: Gely Aguero MD Consults: 02/03/22 18:20 Consult Physician Routine Consulting Provider: Sen Casillas Consult Reason/Comments: intractable back pain Do you want consulting provider notified?: Yes Primary care physician: Brian Arzola MD Hospital Course: Discharge Diagnosis: Alcohol intoxication secondary to binge drinking episode Acute on chronic lower back pain resulting from spinal stenosis Pulmonary fibrosis with chronic respiratory failure home oxygen dependent Hospital Course: Patient is a very pleasant 61-year-old male with a past medical history of pulmonary fibrosis, chronic respiratory failure home oxygen dependent on 2 L at all times, history of cardiac arrest, history of shoulder surgery and spinal stenosis, and chronic back pain. He presented to the emergency department on 02/03/22 with alcohol intoxication and intractable back pain. Patient is under contract with pain management physician, Dr. Casillas for treatment of his chronic pain and is scheduled to be on morphine 15 mg by mouth 4 times daily. Patient's prescription ran out and patient cannot get a new prescription filled until 02/13/22. Patient reports significant pain secondary to inability to take needed pain medications. He denies having any falls or injuries. Patient reported he attempted to self medicate with alcohol for treatment of his uncontrolled pain by drinking a fifth of liquor daily for the past 13 days. Upon arrival to the emergency department, patient underwent full evaluation. Labs completed with CBC, coags, and BMP unremarkable. Patient did have slightly elevated AST of 65. Blood alcohol level was 269. Patient was admitted to our services for detox with consults to industrial painter, Dr. Casillas and PT/OT. Patient detoxed and has only required 3 mg of Ativan over 24 hour showing no signs of acute withdrawal. Patient has been receiving morphine sulfate 15 mg 4 times daily and was evaluated by PT/OT stating patient and needing assistance with ge tting up and ambulation. Discussed possibility of inpatient home care versus rehab with patient and and both declined at this time. Also discussed with patient and possibility of drug/alcohol rehabilitation Center in which they also declined. Patient was evaluated by industrial painter, Dr. Casillas whom is recommending patient to be set up with enough pain medication at home until he is able to fill his prescription on 02/13/22. Patient medically stable at this time and to be discharged home. RN notifying Dr. Casillas for pain management prescriptions he would like patient sent home on. Patient seen and examined at bedside. Discussed discharge plan with patient and , all questions answered. Vital signs reviewed and stable. General: Nontoxic, no distress and appears stated age. Derm: Skin warm and dry, normal coloration for ethnicity. Head: Atraumatic, normocephalic and symmetric. Eyes: EOMs intact, no lid lag, and anicteric sclera Mouth: no lip lesions, mucus membranes moist Cardiovascular: regular rate and rhythm with normal S1S2, no murmur, positive posterior tibial pulses bilaterally, and cap refill < 2 seconds. Lungs: Respirations even, regular, and unlabored on room air. Lungs CTA bilaterally, no rhonchi, no rales, no wheezing, and no accessory muscle usage. Abdominal: soft, nontender to palpation, no guarding, no appreciable organomegaly Ext: ROM intact. No gross muscle atrophy, no edema, no contractures Neuro: Speech clear, face symmetrical and CN II-XII grossly intact with no noted focal neuro deficits Psych: Alert and oriented to person, place, time, and situation. Appropriate and pleasant affect. A total of 37 minutes of time were spent preparing this complex discharge summary. Pt was discharged on 02/04/22 at 1:53 PM I reviewed the documentation as provided by the STACY above, who is the original author of this note. I agree with the documented assessment and plan, with the following changes: none Patient Condition at Discharge: Stable Plan - Discharge Summary New Discharge Prescriptions: Continue QUEtiapine [SEROquel] 50 mg PO HS Folic Acid 1 mg PO DAILY #30 tab hydrOXYzine HCL [Atarax] 10 mg PO QID PRN PRN Reason: Anxiety traMADol HCL 50 mg PO QID Citalopram Hydrobromide [CeleXA] 40 mg PO DAILY Morphine Sulfate Ir [MSIR] 15 mg PO QID 3 Days #12 tab Discharge Medication List Citalopram Hydrobromide [CeleXA] 40 mg PO DAILY 03/25/21 [History] QUEtiapine [SEROquel] 50 mg PO HS 03/25/21 [History] Folic Acid 1 mg PO DAILY #30 tab 03/30/21 [Rx] hydrOXYzine HCL [Atarax] 10 mg PO QID PRN 02/03/22 [History] traMADol HCL 50 mg PO QID 02/03/22 [History] Morphine Sulfate Ir [MSIR] 15 mg PO QID 3 Days #12 tab 02/04/22 [Rx] Follow up Appointment(s)/Referral(s): Brian Arzola MD [Primary Care Provider] - 02/10/22 1:40 pm Sen Casillas MD [STAFF PHYSICIAN] - 03/08/22 9:00 am Activity/Diet/Wound Care/Special Instructions: Activity: As tolerated. Take breaks as needed. Diet: Heart healthy and carb consistent diet. Avoid salts, or foods with hidden salts such as canned or boxed foods and frozen dinners. Extra salt makes your heart work harder and traps the fluid in your body for longer. Special Instructions: Take all of your medications as directed and remember to keep all of your doctor's appointments and follow-up as needed. Thank you for allowing us to participate in your care, it was truly a pleasure having you for our patient!!! Discharge Disposition: HOME SELF-CARE
[2022-02-04 14:42] VITALS: BP 117/78; PULSE 104; RESP 17
== END 2022-02-04 18:15 | disposition home or self-care (01) ==
LOC: EC 15:19 → 4SSUR 17:56
PROVIDERS: ADMIT Family Medicine; ATTEND Family Medicine
DX: F10.229 Alcohol dependence with intoxication, unspecified (principal); F10.239 Alcohol dependence with withdrawal, unspecified; F11.23 Opioid dependence with withdrawal; Y90.8 Blood alcohol level of 240 mg/100 ml or more; J84.10 Pulmonary fibrosis, unspecified; E87.2 Acidosis; M25.519 Pain in unspecified shoulder; F32.A Depression, unspecified; F41.9 Anxiety disorder, unspecified; G89.29 Other chronic pain; M41.9 Scoliosis, unspecified; M48.00 Spinal stenosis, site unspecified; J96.10 Chronic respiratory failure, unspecified whether with hypoxia or hypercapnia; Z79.899 Other long term (current) drug therapy; Z99.81 Dependence on supplemental oxygen; Z86.74 Personal history of sudden cardiac arrest; Z80.0 Family history of malignant neoplasm of digestive organs; Z82.0 Family history of epilepsy and other diseases of the nervous system; Z71.41 Alcohol abuse counseling and surveillance of alcoholic; Z71.51 Drug abuse counseling and surveillance of drug abuser
CPT/HCPCS: 99285; 96376 ×2; 96361 ×2; 96372 ×2; 96374; 96375; 36415; 93005; 97162; 97166; 80053; 83735; 85025; 85610; 85730; G0378 ×2; G0480; J2060 ×2; J2270; J3411; J2405; J1644 ×2; 80320

== ENCOUNTER 2022-02-17 12:59 | Inpatient (IN) | payer OTHER ==
[2022-02-17] MEDS ORDERED: SODIUM CHLORIDE 0.9% 1,000 ML IV STA (13:17)
[2022-02-17] MEDS ORDERED: LORazepam 2 MG/ML INJ IV STA (13:17)
[2022-02-17] MEDS ORDERED: THIAMINE 100 MG/ML 2 ML VIAL IM STA (13:18)
[2022-02-17] MEDS ORDERED: LORazepam 2 MG/ML INJ IV PRN (13:18)
[2022-02-17 14:39] LABS: Basophils # (A) 0.1 k/uL (0-0.2); Basophils % (A) 0 %; Eosinophils % (A) 0 %; HCT 43.3 % (39.0-53.0); HGB 14.2 gm/dL (13.0-17.5); Lymphocytes # (A) 1.1 k/uL (1.0-4.8); Lymphocytes % (A) 10 %; MCH 29.9 pg (25.0-35.0); MCHC 32.7 g/dL (31.0-37.0); MCV 91.6 fL (80.0-100.0); Mean Platelet Volume 6.6; Monocytes # (A) 0.3 k/uL (0-1.0); Monocytes % (A) 3 %; Neutrophils # (A) 9.3 k/uL (1.3-7.7); Neutrophils % (A) 86 %; Platelet Count 365 k/uL (150-450); RBC 4.73 m/uL (4.30-5.90); RDW 13.6 % (11.5-15.5); WBC 10.9 k/uL (3.8-10.6)
[2022-02-17 14:47] LABS: INR 0.9 (<1.2); Prothrombin Time 9.9 sec (9.0-12.0)
--- NOTE | 2022-02-17 14:47 | ED ---
General Adult HPI - General Source: patient, EMS, RN notes reviewed, old records reviewed Mode of arrival: EMS <Alvarado Ann - Last Filed: 02/17/22 15:03> <Randal Priest - Last Filed: 02/17/22 15:37> - General Chief complaint: Alcohol Stated complaint: ETOH Time Seen by Provider: 02/17/22 13:00 - History of Present Illness Initial comments: Chronic alcohol abuse, delirium tremens, chronic low back pain and right shoulder pain who presents emergency Department after binge drinking over the last 5-7 days of her inability to obtain his morphine prescription. He endorses shaking, generalized pain which is chronic. Does have a history of delirium tremens. Patient's called EMS over concern for possible alcohol which all. Last drink was at approximately 6 AM this morning. Patient currently endorses chronic low back pain, as well as feeling dehydrated. States he has any much of the last few days as well. Denies any chest pain, shortness of breath, abdominal pain, nausea, vomiting. Is typically on oral morphine 15 mg externally 4 times daily. Has a pain contract. His no other acute complaints at this time. (Alvarado Ann) - Related Data Home Medications Medication Instructions Recorded Confirmed Citalopram Hydrobromide [CeleXA] 40 mg PO DAILY 03/25/21 02/17/22 QUEtiapine [SEROquel] 50 mg PO HS 03/25/21 02/17/22 hydrOXYzine HCL [Atarax] 10 mg PO QID PRN 02/03/22 02/17/22 traMADol HCL 50 mg PO QID PRN 02/03/22 02/17/22 Thiamine HCl [Vitamin B-1] 100 mg PO DAILY 02/17/22 02/17/22 Previous Rx's Medication Instructions Recorded Folic Acid 1 mg PO DAILY #30 tab 03/30/21 Morphine Sulfate Ir [MSIR] 15 mg PO QID 3 Days #12 tab 02/04/22 Allergies Allergy/AdvReac Type Severity Reaction Status Date / Time No Known Allergies Allergy Verified 02/17/22 13:06 Review of Systems ROS Other: All systems not noted in ROS Statement are negative. <Alvarado Ann - Last Filed: 02/17/22 15:03> ROS Other: All systems not noted in ROS Statement are negative. <Randal Priest - Last Filed: 02/17/22 15:37> ROS Statement: Those systems with pertinent positive or pertinent negative responses have been documented in the HPI. Review of Systems: CONST: Denies fever EYES: Denies blurry vision ENT: Denies nasal congestion C/V: Denies Chest pain RESP: Denies shortness of breath GI: Denies abdominal pain : Denies dysuria SKIN: Denies rash. MSK: Endorses chronic back pain NEURO: Endorses mild tremors (Alvarado Ann) Past Medical History Past Medical History: Musculoskeletal Disorder Additional Past Medical History / Comment(s): ETOH abuse, DTs, chronic low back pain/herniated discs/scoliosis/spinal stenosis, right shoulder History of Any Multi-Drug Resistant Organisms: None Reported Past Surgical History: Orthopedic Surgery Additional Past Surgical History / Comment(s): R ankle fx with surgical repair- pin in and out, back injections at [facility]. Past Anesthesia/Blood Transfusion Reactions: No Reported Reaction Additional Past Anesthesia/Blood Transfusion Reaction / Comment(s): Pt has never received blood. Past Psychological History: Anxiety, Depression Smoking Status: Never smoker Past Alcohol Use History: Abuse, Daily, Heavy Past Drug Use History: None Reported - Past Family History Father Family Medical History: Dementia Additional Family Medical History / Comment(s): Father is . Mother Family Medical History: Cancer Additional Family Medical History / Comment(s): Mother at age 64yrs of pancreatic cancer. <Isaac Annrey - Last Filed: 02/17/22 15:03> General Exam <Isaac Annrey - Last Filed: 02/17/22 15:03> - General Exam Comments Initial Comments: General: Appears in no acute distress. HEAD: Normal with no signs of head trauma. EYES: PERRLA, EOMI, conjunctiva normal, no discharge. Pupils are 3 mm and equal bilaterally. ENT: Hearing grossly intact, normal oropharynx. RESPIRATORY: Clear breath sounds bilaterally. No wheezes, rales, or rhonchi. Chronically on 2-3 L nasal cannula oxygen. C/V: Regular rate and rhythm. S1 and S2 auscultated, no edema, peripheral pulses 2+ and intact throughout ABD: Abd is soft, nontender, nondistended. No guarding. No peritoneal signs. No rebound tenderness. EXT: Normal range of motion, no obvious deformity SKIN: No rashes or lesions observed on exposed skin. NEURO: Alert and oriented 4. No focal sensory strength deficits. Mild tremors in bilateral hands and tongue fasciculations. (Alvarado Ann) Course <Randal Priest - Last Filed: 02/17/22 15:37> Vital Signs 02/17/22 02/17/22 13:00 14:18 Temperature 98.0 F Pulse Rate 117 H 109 H Respiratory 14 18 Rate Blood Pressure 136/107 123/90 O2 Sat by Pulse 99 98 Oximetry - Reevaluation(s) Reevaluation #1: 02/17/22 15:33 Patient was endorsed me by Dr. Ann her shift change pending laboratory work patient does have an elevated alcohol level is 373. In light of previous history of binge drinking for about a week risk of DTs and alcohol withdrawal syndrome patient be admitted and he will be placed on alcohol withdrawal protocol. I did discuss the case with Dr. Arredondo. (Randal Priest) Medical Decision Making - Lab Data Result diagrams: 02/17/22 14:20 <Alvarado Ann - Last Filed: 02/17/22 15:03> - Lab Data Result diagrams: 02/17/22 14:20 02/17/22 14:20 <Randal Priest - Last Filed: 02/17/22 15:37> - Medical Decision Making Based on patient's presentation and physical exam, I'm concerned for alcohol withdrawals. We will obtain abdominal laboratory studies, screening EKG. He will be given a dose of some oral morphine in addition to Ativan and IV fluids. He was in agreement this plan. Patient's vital signs are remarkable for a tachycardia of 117. Patient's labs and EKG are still pending at this time. Patient was signed out to the [facility] emergency physician Dr. Priest in stable condition. Patient will likely require admission. (Alvarado Ann) - Lab Data Lab Results 02/17/22 02/17/22 02/17/22 Range/Units 14:20 14:20 14:20 WBC 10.9 H (3.8-10.6) k/uL RBC 4.73 (4.30-5.90) m/uL Hgb 14.2 (13.0-17.5) gm/dL Hct 43.3 (39.0-53.0) % MCV 91.6 (80.0-100.0) fL MCH 29.9 (25.0-35.0) pg MCHC 32.7 (31.0-37.0) g/dL RDW 13.6 (11.5-15.5) % Plt Count 365 (150-450) k/uL MPV 6.6 Neutrophils % 86 % Lymphocytes % 10 % Monocytes % 3 % Eosinophils % 0 % Basophils % 0 % Neutrophils # 9.3 H (1.3-7.7) k/uL Lymphocytes # 1.1 (1.0-4.8) k/uL Monocytes # 0.3 (0-1.0) k/uL Eosinophils # 0.0 (0-0.7) k/uL Basophils # 0.1 (0-0.2) k/uL PT 9.9 (9.0-12.0) sec INR 0.9 (<1.2) Sodium 140 (137-145) mmol/L Potassium 4.0 (3.5-5.1) mmol/L Chloride 100 (98-107) mmol/L Carbon Dioxide 19 L (22-30) mmol/L Anion Gap 21 mmol/L BUN 15 (9-20) mg/dL Creatinine 0.67 (0.66-1.25) mg/dL Est GFR (CKD-EPI)AfAm >90 (>60 ml/min/1.73 sqM) Est GFR (CKD-EPI)NonAf >90 (>60 ml/min/1.73 sqM) Glucose 80 (74-99) mg/dL Calcium 8.2 L (8.4-10.2) mg/dL Magnesium 2.0 (1.6-2.3) mg/dL Total Bilirubin 0.5 (0.2-1.3) mg/dL AST 119 H (17-59) U/L ALT 85 H (4-49) U/L Alkaline Phosphatase 106 (38-126) U/L Total Protein 7.4 (6.3-8.2) g/dL Albumin 4.4 (3.5-5.0) g/dL Amylase 58 (30-110) U/L Lipase 174 (23-300) U/L Serum Alcohol 373 H* mg/dL Disposition <Alvarado Ann - Last Filed: 02/17/22 15:03> Decision Date: 02/17/22 Decision Time: 15:34 <Randal Priest - Last Filed: 02/17/22 15:37> Clinical Impression: Alcoholic intoxication, Alcohol abuse, Alcohol withdrawal Disposition: ADMITTED IP TO THIS [facility] Condition: Fair Referrals: Brian Arzola MD [Primary Care Provider] - 1-2 days
[2022-02-17 14:49] LABS: ALT 85 U/L (4-49); AST 119 U/L (17-59); African American GFR (CKD) >90 (>60 ml/min/1.73 sqM); Albumin 4.4 g/dL (3.5-5.0); Alkaline Phosphatase 106 U/L (38-126); Amylase 58 U/L (30-110); Anion Gap 21 mmol/L; Blood Urea Nitrogen 15 mg/dL (9-20); Calcium 8.2 mg/dL (8.4-10.2); Carbon Dioxide 19 mmol/L (22-30); Chloride 100 mmol/L (98-107); Glucose 80 mg/dL (74-99); Lipase 174 U/L (23-300); Non-African American GFR(CKD) >90 (>60 ml/min/1.73 sqM); Sodium 140 mmol/L (137-145); Total Bilirubin 0.5 mg/dL (0.2-1.3); Total Protein 7.4 g/dL (6.3-8.2)
[2022-02-17 15:07] LABS: Alcohol 373 mg/dL
[2022-02-17] MEDS ORDERED: NALOXONE 0.4 MG/ML 1 ML VIAL IV PRN ×2 (15:37→17:13)
[2022-02-17] MEDS: MORPHINE SULFATE IR 15 MG TABLET PO PRN (16:15)
[2022-02-17] MEDS: LORazepam 2 MG/ML INJ IV PRN ×2 (16:20→22:12)
[2022-02-17] MEDS ORDERED: ONDANSETRON 4 MG/2 ML VIAL IVP PRN (17:13)
[2022-02-17] MEDS ORDERED: bisacodyL 5 MG TABLET.DR PO PRN (17:13)
[2022-02-17] MEDS ORDERED: ALBUTEROL NEBULIZED 2.5 MG/3 ML INHALATION PRN (17:22)
--- NOTE | 2022-02-17 17:28 | P.HPIM ---
History of Present Illness H&P Date: 02/17/22 Chief Complaint: ETOH intox Patient is a 61 yo CM with a hx of ETOH abuse, DTs, pulmonary fibrosis with chronic hypoxic respiratory failure on 2 L, prior cardiac arrest, and chronic low back pain who was brought in via EMS when his had concerns of ETOH withdrawal. In the ED he underwent an extensive evaluation. He ETOH was 373, AST 118 and ALT 85. He had an Anion gap metabolic acidosis due to ETOH. EKG obtained which showed sinus tachycardia. Patient seen and examined at bedside. He has just received 1 mg of Ativan. He is obtunded and wakes up says 1-2 words and then falls back asleep. He is unable to answer questions. No family or friends present at bedside. All information is obtained from thorough record review including prior hospitalization on 02/03/22 through 02/04/22. Additionally per EMS report patient has been drinking heavily has not been eating and has run out of his morphine. Unable to complete review of systems secondary to patient's lethargy. General: non toxic, no distress, appears at stated age, discheveled Derm: warm, dry Head: atraumatic, normocephalic, symmetric Eyes: EOMI, no lid lag, anicteric sclera, pupils equal round reactive to light ENT: Nose and ears atraumatic, no thrush, no pharyngeal erythema Neck: No thyromegaly, no cervical lymphadenopathy, trachea midline, supple Mouth: no lip lesion, mucus membranes moist Cardiovascular: S1S2 reg, no murmur, positive posterior tibial pulse bilateral, no edema, capillary refill less than 2 seconds Lungs: clear to ascultation bilateral, no ronchi, no rales, no wheeze, no accessory muscle use Abdominal: soft, nontender to palpation, no guarding, no appreciable organo megaly, normal bowel sounds Ext: no gross muscle atrophy, moving all 4 extremities independently, unable to participate in formal muscle strength testing, no contractures Neuro: CN II-XI grossly intact, no tremor noted Psych: Lethargic, oriented 3, appropriate affect Assessment/plan: Alcohol intoxication with impending withdrawal Transaminitis due to EtOH use Anion gap metabolic acidosis secondary to alcohol intoxication -IV fluids -CIWA protocol, thiamine, folic acid -Social work -Repeat labs in a.m. Leukocytosis, suspect reactive -Follow CBC Pulmonary fibrosis with chronic hypoxic respiratory failure -scheduled and prn bronchdilators, until able to verify home regiment. -Continue with O2 The patient is placed in observation with an anticipated less than 2 midnight stay for evaluation of ETOH intoxication. DVT prophylaxis: SCDs Discussed with: Patient Anticipated discharge date: in AM Anticipated discharge place: home vs rehab A total of 62 minutes was spent on the care of this complex patient more than 50% of the time was spent in counseling and care coordination. Past Medical History Past Medical History: Musculoskeletal Disorder Additional Past Medical History / Comment(s): ETOH abuse, DTs, chronic low back pain/herniated discs/scoliosis/spinal stenosis, right shoulder, pulmonary fibrosis, Home O2 History of Any Multi-Drug Resistant Organisms: None Reported Past Surgical History: Orthopedic Surgery Additional Past Surgical History / Comment(s): R ankle fx with surgical repair- pin in and out, back injections at [facility]. Past Anesthesia/Blood Transfusion Reactions: No Reported Reaction Additional Past Anesthesia/Blood Transfusion Reaction / Comment(s): Pt has never received blood. Past Psychological History: Anxiety, Depression Smoking Status: Never smoker Past Alcohol Use History: Abuse, Daily, Heavy Past Drug Use History: None Reported - Past Family History Father Family Medical History: Dementia Additional Family Medical History / Comment(s): Father is . Mother Family Medical History: Cancer Additional Family Medical History / Comment(s): Mother at age 64yrs of pancreatic cancer. Medications and Allergies Home Medications Medication Instructions Recorded Confirmed Type Citalopram Hydrobromide [CeleXA] 40 mg PO DAILY 03/25/21 02/17/22 History QUEtiapine [SEROquel] 50 mg PO HS 03/25/21 02/17/22 History Folic Acid 1 mg PO DAILY #30 tab 03/30/21 02/17/22 Rx hydrOXYzine HCL [Atarax] 10 mg PO QID PRN 02/03/22 02/17/22 History traMADol HCL 50 mg PO QID PRN 02/03/22 02/17/22 History Morphine Sulfate Ir [MSIR] 15 mg PO QID 3 Days #12 tab 02/04/22 02/17/22 Rx Thiamine HCl [Vitamin B-1] 100 mg PO DAILY 02/17/22 02/17/22 History Allergies Allergy/AdvReac Type Severity Reaction Status Date / Time No Known Allergies Allergy Verified 02/17/22 13:06 Physical Exam Osteopathic Statement: *. No significant issues noted on an osteopathic structural exam other than those noted in the History and Physical/Consult. Vitals: Vital Signs Temp Pulse Resp BP Pulse Ox 02/17/22 16:27 107 H 18 140/96 98 02/17/22 14:18 109 H 18 123/90 98 02/17/22 13:00 98.0 F 117 H 14 136/107 99 Intake and Output 02/17/22 02/17/22 02/17/22 06:59 14:59 22:59 Other: Weight 63.503 kg Results CBC & Chem 7: 02/17/22 14:20 02/17/22 14:20 Labs: Abnormal Lab Results - Last 24 Hours (Table) 02/17/22 02/17/22 Range/Units 14:20 14:20 WBC 10.9 H (3.8-10.6) k/uL Neutrophils # 9.3 H (1.3-7.7) k/uL Carbon Dioxide 19 L (22-30) mmol/L Calcium 8.2 L (8.4-10.2) mg/dL AST 119 H (17-59) U/L ALT 85 H (4-49) U/L Serum Alcohol 373 H* mg/dL
[2022-02-17] MEDS: SODIUM CHLORIDE 0.9% 1,000 ML IV SCH (18:27)
[2022-02-17] MEDS: THIAMINE 100 MG TAB PO SCH (19:30)
[2022-02-17] MEDS: IPRATROPIUM-ALBUTEROL 3 ML NEB INHALATION SCH (19:45)
[2022-02-17] MEDS: MORPHINE SULFATE IR 15 MG TABLET PO SCH ×2 (21:27→22:58)
[2022-02-17] MEDS: QUEtiapine 50 MG TAB PO SCH (22:58)
[2022-02-18] MEDS: LORazepam 2 MG/ML INJ IV PRN ×3 (02:26→09:53)
[2022-02-18 06:38] LABS: HCT 40.6 % (39.0-53.0); HGB 12.7 gm/dL (13.0-17.5); MCH 29.8 pg (25.0-35.0); MCHC 31.3 g/dL (31.0-37.0); MCV 95.3 fL (80.0-100.0); Mean Platelet Volume 7.3; Platelet Count 263 k/uL (150-450); RBC 4.26 m/uL (4.30-5.90); RDW 13.1 % (11.5-15.5); WBC 13.7 k/uL (3.8-10.6)
[2022-02-18 06:52] LABS: ALT 85 U/L (4-49); AST 118 U/L (17-59); African American GFR (CKD) >90 (>60 ml/min/1.73 sqM); Albumin 4.1 g/dL (3.5-5.0); Albumin/Globulin Ratio 1.5; Alkaline Phosphatase 91 U/L (38-126); Anion Gap 19 mmol/L; Blood Urea Nitrogen 18 mg/dL (9-20); Calcium 8.6 mg/dL (8.4-10.2); Carbon Dioxide 19 mmol/L (22-30); Chloride 101 mmol/L (98-107); Globulin 2.8 g/dL; Glucose 59 mg/dL (74-99); Non-African American GFR(CKD) >90 (>60 ml/min/1.73 sqM); Phosphorus 3.2 mg/dL (2.5-4.5); Sodium 139 mmol/L (137-145); Total Bilirubin 0.8 mg/dL (0.2-1.3); Total Protein 6.9 g/dL (6.3-8.2)
[2022-02-18] MEDS: IPRATROPIUM-ALBUTEROL 3 ML NEB INHALATION SCH ×4 (07:37→20:33)
[2022-02-18] MEDS: CITALOPRAM HYDROBROMIDE 20 MG TAB PO SCH (09:52)
[2022-02-18] MEDS: THIAMINE 100 MG TAB PO SCH ×2 (09:52→18:19)
[2022-02-18] MEDS: FOLIC ACID 1 MG TAB PO SCH (09:53)
[2022-02-18] MEDS: SODIUM CHLORIDE 0.9% 1,000 ML IV SCH ×2 (09:54→22:13)
[2022-02-18 14:46] VITALS: BMI 20.7
[2022-02-18] MEDS: MORPHINE SULFATE IR 15 MG TABLET PO SCH (19:01)
[2022-02-18] MEDS ORDERED: LORazepam 2 MG/ML INJ IV STA (19:40)
[2022-02-18 19:44] LABS: Appearance,Urine Clear (Clear); Bilirubin,Urine Negative (Negative); Blood,Urine Negative (Negative); Color,Urine Yellow; Glucose,Urine (UA) Negative (Negative); Ketones,Urine 2+ (Negative); Leukocyte Esterase,Urine Negative (Negative); Mucus,Urine Rare /hpf; Nitrite,Urine Negative (Negative); Protein,Urine 1+ (Negative); Specific Gravity,Urine 1.022 (1.001-1.035); Urobilinogen,Urine <2.0 mg/dL (<2.0)
[2022-02-18 20:04] LABS: Amphetamine Screen,Urine Not Detected (NotDetected); Barbiturate Screen,Urine Not Detected (NotDetected); Benzodiazepines Screen,Urine Detected (NotDetected); Cocaine Screen,Urine Not Detected (NotDetected); Methadone Screen, Urine Not Detected (NotDetected); Opiate Screen,Urine Detected (NotDetected); Oxycodone Screen, Urine Not Detected (NotDetected); Phencyclidine Screen,Urine Not Detected (NotDetected); Tricyclic Antidepressant,Urine Detected (NotDetected); Urn Cannabinoid Scrn Detected (NotDetected)
[2022-02-18] MEDS: QUEtiapine 50 MG TAB PO SCH (22:12)
[2022-02-18] MEDS: MORPHINE SULFATE IR 15 MG TABLET PO PRN (23:50)
[2022-02-19] MEDS: LORazepam 2 MG/ML INJ IV PRN ×4 (01:45→21:13)
[2022-02-19] MEDS: MORPHINE SULFATE IR 15 MG TABLET PO PRN ×3 (06:03→23:03)
[2022-02-19 06:56] LABS: HGB 12.9 gm/dL (13.0-17.5); MCH 29.4 pg (25.0-35.0); MCHC 31.6 g/dL (31.0-37.0); MCV 93.1 fL (80.0-100.0); Mean Platelet Volume 7.6; Platelet Count 229 k/uL (150-450); RBC 4.41 m/uL (4.30-5.90); RDW 13.1 % (11.5-15.5); WBC 13.8 k/uL (3.8-10.6)
[2022-02-19 07:11] LABS: ALT 59 U/L (4-49); AST 71 U/L (17-59); African American GFR (CKD) >90 (>60 ml/min/1.73 sqM); Albumin 3.6 g/dL (3.5-5.0); Albumin/Globulin Ratio 1.2; Alkaline Phosphatase 90 U/L (38-126); Anion Gap 8 mmol/L; Blood Urea Nitrogen 11 mg/dL (9-20); Calcium 8.9 mg/dL (8.4-10.2); Carbon Dioxide 28 mmol/L (22-30); Chloride 96 mmol/L (98-107); Globulin 2.9 g/dL; Glucose 89 mg/dL (74-99); Magnesium 1.6 mg/dL (1.6-2.3); Non-African American GFR(CKD) >90 (>60 ml/min/1.73 sqM); Potassium 3.3 mmol/L (3.5-5.1); Sodium 132 mmol/L (137-145); Total Bilirubin 1.4 mg/dL (0.2-1.3); Total Protein 6.5 g/dL (6.3-8.2)
[2022-02-19] MEDS: IPRATROPIUM-ALBUTEROL 3 ML NEB INHALATION SCH ×4 (07:32→19:44)
[2022-02-19] MEDS: THIAMINE 100 MG TAB PO SCH ×2 (09:12→17:07)
[2022-02-19] MEDS: CITALOPRAM HYDROBROMIDE 20 MG TAB PO SCH (09:12)
[2022-02-19] MEDS: FOLIC ACID 1 MG TAB PO SCH (09:12)
[2022-02-19] MEDS: POTASSIUM CHLORIDE 10 MEQ in WATER FOR INJECTION 1 100ML.BAG IVPB SCH ×4 (10:22→16:48)
[2022-02-19] MEDS: SODIUM CHLORIDE 0.9% 1,000 ML IV SCH ×2 (13:31→21:18)
--- NOTE | 2022-02-19 14:37 | P.PN ---
Subjective Progress Note Date: 02/19/22 Principal diagnosis: Alcohol intoxication/alcohol withdrawal Patient is a 61 yo CM with a hx of ETOH abuse, DTs, pulmonary fibrosis with chronic hypoxic respiratory failure on 2 L, prior cardiac arrest, and chronic low back pain who was brought in via EMS when his had concerns of ETOH withdrawal. In the ED he underwent an extensive evaluation. He ETOH was 373, AST 118 and ALT 85. He had an Anion gap metabolic acidosis due to ETOH. EKG obtained which showed sinus tachycardia. Patient seen and examined at bedside. He had just received one milligrams of Ativan. He is alert and oriented. He has tremors. He denies any chest pain or shortness of breath. Patient reports feeling increasingly depressed after losing his son and good friends. He reports nausea but denies vomiting. Denies any abdominal pain at this time. He is afebrile. Potassium is 3.3, which will be replaced. Bilirubin jumped to 1.4 today. Objective - Vital Signs Vital signs: Vital Signs Temp 98.5 F 02/19/22 13:37 Pulse 117 H 02/19/22 13:37 Resp 17 02/19/22 13:37 BP 115/82 02/19/22 13:37 Pulse Ox 97 02/19/22 13:37 FiO2 Intake & Output 02/18/22 02/19/22 02/19/22 18:59 06:59 18:59 Intake Total 1330 Output Total 50 200 Balance 1280 -200 Weight 63.503 kg Intake: IV 450 Sodium Chloride 0.9% 1, 450 000 ml @ 75 mls/hr IV . [id number] [facility] Rx#:[id number] Oral 880 Output: Urine 50 200 Other: Voiding Method Toilet Urinal # Voids 3 2 - Exam Constitutional: No acute distress, on room air HEENT: Pupils equally reactive to light, atraumatic, normocephalic. Lungs: Clear to auscultation bilaterally, no wheezing, no crackles Cardiovascular: Sinus tachycardia, S1-S2 normal, no murmur, no peripheral edema Abdominal: Soft, nontender, no guarding, rebound or rigidity Extremities: No cyanosis or clubbing Neuro: No focal neurological signs alert - Labs CBC & Chem 7: 02/19/22 06:08 02/19/22 06:08 Labs: Abnormal Lab Results - Last 24 Hours (Table) 02/18/22 02/19/22 02/19/22 Range/Units 19:21 06:08 06:08 WBC 13.8 H (3.8-10.6) k/uL Hgb 12.9 L (13.0-17.5) gm/dL Sodium 132 L (137-145) mmol/L Potassium 3.3 L (3.5-5.1) mmol/L Chloride 96 L (98-107) mmol/L Creatinine 0.53 L (0.66-1.25) mg/dL Total Bilirubin 1.4 H (0.2-1.3) mg/dL AST 71 H (17-59) U/L ALT 59 H (4-49) U/L Urine Protein 1+ H (Negative) Urine Ketones 2+ H (Negative) Urine Mucus Rare H (None) /hpf Urine Opiates Screen Detected H (NotDetected) U Tricyclic Antidepress Detected H (NotDetected) U Benzodiazepines Scrn Detected H (NotDetected) U Marijuana (THC) Screen Detected H (NotDetected) Assessment and Plan Assessment: Alcohol intoxication Alcohol withdrawal - CIWA protocol, thiamine, folic acid - IV fluids - Social work consult Elevated liver enzymes - Likely secondary to local use - We will check ultrasound of liver and gallbladder to rule out obstruction Leukocytosis -Likely reactive, continue to monitor Depression/bipolar disorder -On Librium and Celexa - Consult psychiatry. Pulmonary fibrosis with chronic hypoxic respiratory failure -Continue home O2 DVT prophylaxis with SCDs and Lovenox
--- NOTE | 2022-02-19 15:30 | US ---
EXAMINATION TYPE: US liver DATE OF EXAM: 02/19/2022 COMPARISON: NONE CLINICAL HISTORY: Elevated bilirubin / liver enzymes. elevated liver enzymes EXAM MEASUREMENTS: Liver Length: 16.1 cm Gallbladder Wall: 0.3 cm Right Kidney: 10.5 x 5.3 x 4.5 cm technical limitations due to large amount of overlying bowel content Pancreas: Obscured by bowel gas Liver: only seen intercostally, question heterogeneous echotexture, poor penetration of the ultrasou nd beam Gallbladder: only seen intercostally, no evidence of stones as visualized Evidence for sonographic Mcfadden's sign: no CBD: Obscured by overlying bowel gas Right Kidney: no evidence of hydronephrosis IMPRESSION: There are limitations the exam. Difficult to exclude underlying hepatocellular disease
[2022-02-19] MEDS ORDERED: POTASSIUM CHLORIDE ER 20 MEQ TAB.ER PO STA (16:46)
[2022-02-19] MEDS: QUEtiapine 50 MG TAB PO SCH (21:13)
[2022-02-20] MEDS: LORazepam 2 MG/ML INJ IV PRN ×5 (02:02→23:46)
[2022-02-20] MEDS: MORPHINE SULFATE IR 15 MG TABLET PO PRN ×3 (05:11→19:19)
[2022-02-20] MEDS: CITALOPRAM HYDROBROMIDE 20 MG TAB PO SCH (07:54)
[2022-02-20] MEDS: FOLIC ACID 1 MG TAB PO SCH (07:54)
[2022-02-20] MEDS: THIAMINE 100 MG TAB PO SCH ×2 (07:54→17:03)
[2022-02-20] MEDS: IPRATROPIUM-ALBUTEROL 3 ML NEB INHALATION SCH ×4 (08:41→20:11)
[2022-02-20 11:55] LABS: Basophils # (A) 0.03 X 10*3/uL (0.00-0.10); Basophils % (A) 0.3 %; Eosinophils # (A) 0.34 X 10*3/uL (0.04-0.35); Eosinophils % (A) 3.3 %; HCT 35.8 % (39.6-50.0); HGB 11.9 g/dL (13.0-17.0); Immature Grans, Automated 0.4 %; Lymphocytes # (A) 2.41 X 10*3/uL (0.90-5.00); MCH 29.9 pg (27.0-32.0); MCHC 33.2 g/dL (32.0-37.0); MCV 89.9 fL (80.0-97.0); Mean Platelet Volume 9.6 fL (9.5-12.2); Monocytes # (A) 0.61 X 10*3/uL (0.20-1.00); Monocytes % (A) 5.8 %; NRBC Per 100 WBC 0 /100 WBCS (0.0-0.0); Neutrophils # (A) 7.03 X 10*3/uL (1.80-7.70); Neutrophils % (A) 67.2 %; Platelet Count 186 X 10*3/uL (140-440); RBC 3.98 X 10*6/uL (4.40-5.60); RDW 13.2 % (11.5-14.5); WBC 10.46 X 10*3/uL (4.50-10.00)
[2022-02-20 12:04] LABS: African American GFR (CKD) 125.8 (60.0-200.0); Albumin 3.7 g/dL (3.8-4.9); Albumin/Globulin Ratio 1.48 (1.60-3.17); Anion Gap 13.4 mmol/L (10.00-18.00); BUN/Creat Ratio 11.17 Ratio (12.00-20.00); Blood Urea Nitrogen 6.7 mg/dL (9.0-27.0); Calcium 9.2 mg/dL (8.7-10.3); Carbon Dioxide 26.6 mmol/L (20.0-27.5); Globulin 2.5 g/dL (1.6-3.3); Non-African American GFR(CKD) 108.5 (60.0-200.0); Potassium 3.6 mmol/L (3.5-5.5); Total Bilirubin 0.8 mg/dL (0.30-1.20); Total Protein 6.2 g/dL (6.2-8.2)
[2022-02-20] MEDS: SODIUM CHLORIDE 0.9% 1,000 ML IV SCH (14:19)
--- NOTE | 2022-02-20 14:47 | P.PN ---
Subjective Progress Note Date: 02/20/22 Principal diagnosis: Alcohol withdrawal Patient is a 61 yo CM with a hx of ETOH abuse, DTs, pulmonary fibrosis with chronic hypoxic respiratory failure on 2 L, prior cardiac arrest, and chronic low back pain who was brought in via EMS when his had concerns of ETOH withdrawal. In the ED he underwent an extensive evaluation. He ETOH was 373, AST 118 and ALT 85. He had an Anion gap metabolic acidosis due to ETOH. EKG obtained which showed sinus tachycardia. Patient seen and examined at bedside. No abdominal pain. No fever or chills. Objective - Vital Signs Vital signs: Vital Signs Temp 98.7 F 02/20/22 07:06 Pulse 104 H 02/20/22 12:31 Resp 18 02/20/22 07:06 BP 120/77 02/20/22 07:06 Pulse Ox 96 02/20/22 07:06 FiO2 Intake & Output 02/19/22 02/20/22 02/20/22 18:59 06:59 18:59 Intake Total 118 500 118 Output Total 220 140 Balance 118 280 -22 Intake: Oral 118 500 118 Output: Urine 220 140 Other: # Voids 2 # Bowel Movements 1 - Exam Constitutional: No acute distress, on room air HEENT: Pupils equally reactive to light, atraumatic, normocephalic. Lungs: Clear to auscultation bilaterally, no wheezing, no crackles Cardiovascular: Sinus tachycardia, S1-S2 normal, no murmur, no peripheral edema Abdominal: Soft, nontender, no guarding, rebound or rigidity Extremities: No cyanosis or clubbing Neuro: No focal neurological signs alert - Labs CBC & Chem 7: 02/20/22 07:14 02/20/22 07:14 Labs: Abnormal Lab Results - Last 24 Hours (Table) 02/20/22 02/20/22 Range/Units 07:14 07:14 WBC 10.46 H (4.50-10.00) X 10*3/uL RBC 3.98 L (4.40-5.60) X 10*6/uL Hgb 11.9 L (13.0-17.0) g/dL Hct 35.8 L (39.6-50.0) % BUN 6.7 L (9.0-27.0) mg/dL BUN/Creatinine Ratio 11.17 L (12.00-20.00) Ratio AST 55 H (14-35) U/L Albumin 3.7 L (3.8-4.9) g/dL Albumin/Globulin Ratio 1.48 L (1.60-3.17) g/dL Assessment and Plan Plan: Alcohol intoxication Alcohol withdrawal - CIWA protocol, thiamine, folic acid - IV fluids - Social work consult Elevated liver enzymes - Likely secondary alcohol. -US reviewed. -enzymes trending down. Leukocytosis -Likely reactive- improved Depression/bipolar disorder -On Librium and Celexa - Consult psychiatry. Pulmonary fibrosis with chronic hypoxic respiratory failure -Continue home O2 DVT prophylaxis with SCDs and Lovenox Disposition: Patient still requiring IV Ativan for alcohol withdrawal symptoms. Continue with current treatment plan and monitor for another 24 hours. Expected discharge home on 02/21/2022
--- NOTE | 2022-02-20 16:02 | P.CN ---
Psychiatric Consult - . Consult date: 02/20/22 Consult:: IDENTIFYING DATA: This patient is a 21-year-old male with history of depression and alcoholism. REASON FOR REFERRAL: Psychiatry was consulted for depression. HISTORY OF PRESENT ILLNESS: The patient presented to the hospital 02/17/2022 with alcohol intoxication and impending alcohol withdrawal. On my assessment, patient appears to minimize his depression, he intermittently appears confused, questions were his glasses are when his glasses are around his neck. He is alert and oriented to person and place, when asked about time he states the month is February, and the year is . On my assessment, he denies suicidal or homicidal ideations intent or plan. He denies auditory or visual hallucinations. He admits to drinking 1 pint of vodka daily. He reports several stressors including chronic back injuries and pain leading to his early correction. He also reports state significant losses including the of his mother in May 2017 followed by the unexpected of his son from cardiopulmonary issues also in May 2017. His father in May 2021 and in August 2021 he was diagnosed with pulmonary fibrosis and told he has to to 5 years left to live. He appears to minimize his depressive symptoms. He reports his sleep, interest, and concentration are okay. He reports poor appetite and low energy. He gives me permission to speak to his and provides me the wrong phone number with a couple digits reversed. I called his using the number listed in the chart his Fco ([phone]) reports that patient has been "very depressed", and is tried to kill himself twice in the past week by taking off his oxygen nasal cannula and wrapping the oxygen tubing 3 times around his neck. reports patient recently has told her he wants to , and stated" I just want to go, I'm sick and tired." reports last year patient made suicidal statements on multiple occasions and threatened that he would shoot himself in her calling the police on multiple occasions guns being removed from the house. reports that the guns are still hidden out of the house and patient does not have access to them. reports concerned that patient may try to kill himself because he continues to wish that he would . When I discussed with her that today he is denying suicidal ideations, she states quotation saba "he's lying" and that he is very depressed and would benefit from inpatient psychiatric hospitalization for his depression. He is tachycardic, tremoring, and requiring about 1 mg IV Ativan every 4 hours. PAST PSYCHIATRIC HISTORY: Patient has a a history of alcoholism and depression. Patient reports he is on Celexa for anxiety. Patient reports he was admitted to [facility] in 2017 after his son . Patient denies any history of suicide attempts in the past, however his reports she has tried to kill himself twice in the past week by tying the oxygen tubing around his neck on 2 separate occasions. PAST MEDICAL HISTORY: Past Medical History: Musculoskeletal Disorder Additional Past Medical History / Comment(s): ETOH abuse, DTs, chronic low back pain/herniated discs/scoliosis/spinal stenosis, right shoulder History of Any Multi-Drug Resistant Organisms: None Reported Past Surgical History: Orthopedic Surgery Additional Past Surgical History / Comment(s): R ankle fx with surgical repair- pin in and out, back injections at [facility]. Past Anesthesia/Blood Transfusion Reactions: No Reported Reaction Additional Past Anesthesia/Blood Transfusion Reaction / Comment(s): Pt has never received blood. Past Psychological History: Anxiety, Depression Smoking Status: Never smoker Past Alcohol Use History: Abuse, Daily, Heavy Past Drug Use History: None Reported ALLERGIES: as per EMR. CHEMICAL DEPENDENCY HISTORY: Patient admits to drinking 1 pint of vodka daily. He denies tobacco use, he denies illicit drug use. FAMILY PSYCHIATRIC/SUBSTANCE USE HISTORY: denies SOCIAL HISTORY: Retired Fco. Has 1 living daughter and son. One son in 2017. Parents both . MENTAL STATUS EXAM: General Appearance: Patient appears to be stated age and slender. He is disheveled, dressed in hospital gown, and his glasses are resting on his neck. Behavior: Patient appears anxious and is tremoring, repeatedly shakes his feet. He is cooperative, does not become agitated. Speech: Patient's speech is fluent and nonpressured. Mood/Affect: Patient reports their mood is "ok, downhill since 2017", affect is depressed/anxious. Suicidality/Homicidality: Patient denies having any suicidal or homicidal ideation intent or plan; however he appears to be minimizing his depressive symptoms and suicidal ideations. reports patient has attempted suicide twice in the past week by wrapping the oxygen tubing around his neck. Perceptions: Patient denies any visual hallucinations and denies any auditory hallucinations. Though content/process: There is no evidence of any delusional thought content. Process is at times disorganized. Memory and concentration: Alert and oriented to person, place, and situation. He incorrectly states the month in "February" and the year is "2019, 2021, 1921". Cannot spell "WORLD" backwards Judgment and insight: Moderately impaired. IMPRESSIONS: Delirium secondary to alcohol withdrawal Alcohol withdrawal Alcohol use disorder, severe Depressive disorder, rule out major depressive disorder recurrent severe without psychotic features Recent suicide attempts PLAN: -At this time patient DOES meet criteria for inpatient psychiatric admission. -Delirium precautions recommended with patient including - avoiding use of narcotics and OFFICE TECHNOLOGY PROFESSOR sedatives, limit anticholinergic medications when possible, frequent re-orientation, minimize use of restraints, open window shades during the day and close them at night -Would recommend the following medication changes/additions: Increase Librium to 20 mg 4 times daily for the next 24 hours for alcohol withdrawal symptoms. Hold for sedation. -Continue CIWA protocol with PRN Ativan for alcohol withdrawal. Continue to monitor vital signs. -Start 1:1 sitter for safety. -Cannot leave AMA at this time. Patient will need a petition and certification if attempting to leave AMA. -Tooth Cutter spoke with patient about substance abuse and the harmful effects on medical and mental health, patient verbally understood and agreed. -When medically stable, patient is eligible for transfer to a psych bed when available. -Communicated plan to patient's nurse -Will continue to follow along -Please contact with any questions. 02/20/22 10:33 02/20/22 15:37 02/20/22 15:54
[2022-02-20] MEDS: QUEtiapine 50 MG TAB PO SCH (20:53)
[2022-02-21] MEDS: SODIUM CHLORIDE 0.9% 1,000 ML IV SCH ×2 (03:53→18:59)
[2022-02-21] MEDS: LORazepam 2 MG/ML INJ IV PRN ×2 (03:53→15:46)
[2022-02-21] MEDS: MORPHINE SULFATE IR 15 MG TABLET PO PRN ×2 (05:41→13:37)
[2022-02-21] MEDS: IPRATROPIUM-ALBUTEROL 3 ML NEB INHALATION SCH ×4 (07:43→20:17)
--- NOTE | 2022-02-21 10:47 | P.PN ---
Subjective Progress Note Date: 02/21/22 Principal diagnosis: Alcohol withdrawal Patient is a 61 yo CM with a hx of ETOH abuse, DTs, pulmonary fibrosis with chronic hypoxic respiratory failure on 2 L, prior cardiac arrest, and chronic low back pain who was brought in via EMS when his had concerns of ETOH withdrawal. In the ED he underwent an extensive evaluation. He ETOH was 373, AST 118 and ALT 85. He had an Anion gap metabolic acidosis due to ETOH. EKG obtained which showed sinus tachycardia. 02/21/2022 Patient seen and examined at bedside. No abdominal pain. No fever or chills. Patient continues to require IV Ativan for alcohol withdrawal symptoms. Patient was seen by psychiatric team and they recommend one-to-one sitter as well as possibly transfer to inpatient psych. Patient is still having sig nificant tremors. Patient is tolerating an oral diet without problems Objective - Vital Signs Vital signs: Vital Signs Temp 98.7 F 02/21/22 07:32 Pulse 104 H 02/21/22 07:55 Resp 18 02/21/22 07:32 BP 102/70 02/21/22 07:32 Pulse Ox 95 02/21/22 07:32 FiO2 Intake & Output 02/20/22 02/21/22 02/21/22 18:59 06:59 18:59 Intake Total 118 500 480 Output Total 300 Balance -182 500 480 Intake: Oral 118 500 480 Output: Urine 300 - Exam Constitutional: No acute distress, on room air HEENT: Pupils equally reactive to light, atraumatic, normocephalic. Lungs: Clear to auscultation bilaterally, no wheezing, no crackles Cardiovascular: Sinus tachycardia, S1-S2 normal, no murmur, no peripheral edema Abdominal: Soft, nontender, no guarding, rebound or rigidity Extremities: No cyanosis or clubbing Neuro: No focal neurological signs alert - Labs CBC & Chem 7: 02/20/22 07:14 02/20/22 07:14 Labs: Abnormal Lab Results - Last 24 Hours (Table) 02/20/22 02/20/22 Range/Units 07:14 07:14 WBC 10.46 H (4.50-10.00) X 10*3/uL RBC 3.98 L (4.40-5.60) X 10*6/uL Hgb 11.9 L (13.0-17.0) g/dL Hct 35.8 L (39.6-50.0) % BUN 6.7 L (9.0-27.0) mg/dL BUN/Creatinine Ratio 11.17 L (12.00-20.00) Ratio AST 55 H (14-35) U/L Albumin 3.7 L (3.8-4.9) g/dL Albumin/Globulin Ratio 1.48 L (1.60-3.17) g/dL Assessment and Plan Plan: Alcohol intoxication Alcohol withdrawal - CIWA protocol, thiamine, folic acid - IV fluids -drug worker following Elevated liver enzymes - Likely secondary alcohol. -US reviewed. -enzymes trending down. Leukocytosis -Likely reactive- improved Depression/bipolar disorder -On Librium and Celexa -Psych following: Recommendation for inpatient psychiatric admission. One-to-one sitter is in place. He cannot leave AMA. Pulmonary fibrosis with chronic hypoxic respiratory failure -Continue home O2 DVT prophylaxis with SCDs and Lovenox Disposition: Patient is still requiring IV Ativan for all call withdrawal symptoms. Psychiatric team increased patient's oral Librium to 20 mg 4 times daily. Psychiatric team feels patient does meet criteria for inpatient psychiatric admission.
[2022-02-21] MEDS: FOLIC ACID 1 MG TAB PO SCH (10:56)
[2022-02-21] MEDS: CITALOPRAM HYDROBROMIDE 20 MG TAB PO SCH (10:56)
[2022-02-21] MEDS: THIAMINE 100 MG TAB PO SCH ×2 (10:56→18:59)
[2022-02-21] MEDS: QUEtiapine 50 MG TAB PO SCH (21:33)
[2022-02-21] MEDS: MELATONIN 3 MG TABLET PO PRN (21:33)
[2022-02-22] MEDS: LORazepam 2 MG/ML INJ IV PRN ×2 (01:42→15:21)
[2022-02-22] MEDS: THIAMINE 100 MG TAB PO SCH ×2 (07:15→17:37)
[2022-02-22] MEDS: CITALOPRAM HYDROBROMIDE 20 MG TAB PO SCH (07:15)
[2022-02-22] MEDS: SODIUM CHLORIDE 0.9% 1,000 ML IV SCH ×2 (07:16→17:38)
[2022-02-22] MEDS: FOLIC ACID 1 MG TAB PO SCH (07:16)
[2022-02-22] MEDS: MORPHINE SULFATE IR 15 MG TABLET PO PRN ×2 (07:20→13:37)
[2022-02-22] MEDS: IPRATROPIUM-ALBUTEROL 3 ML NEB INHALATION SCH ×4 (08:02→19:52)
[2022-02-22 10:52] LABS: Basophils # (A) 0.03 X 10*3/uL (0.00-0.10); Basophils % (A) 0.5 %; Eosinophils # (A) 0.22 X 10*3/uL (0.04-0.35); Eosinophils % (A) 3.7 %; HCT 31.6 % (39.6-50.0); HGB 10.1 g/dL (13.0-17.0); Immature Grans, Automated 0.5 %; Lymphocytes % (A) 25.3 %; MCH 29.4 pg (27.0-32.0); MCV 92.1 fL (80.0-97.0); Mean Platelet Volume 10.3 fL (9.5-12.2); Monocytes # (A) 0.71 X 10*3/uL (0.20-1.00); NRBC Per 100 WBC 0 /100 WBCS (0.0-0.0); Neutrophils # (A) 3.44 X 10*3/uL (1.80-7.70); Platelet Count 201 X 10*3/uL (140-440); RBC 3.43 X 10*6/uL (4.40-5.60); RDW 13.4 % (11.5-14.5); WBC 5.93 X 10*3/uL (4.50-10.00)
--- NOTE | 2022-02-22 11:28 | P.PN ---
Subjective Patient examined at bedside today not complaining of any worsening symptomatology. Currently requiring 2-3 L of nasal cannula maintaining saturations above 90%. Denies any hallucinations visual auditory. Objective - Vital Signs Vital signs: Vital Signs Temp 98.1 F 02/22/22 07:21 Pulse 100 02/22/22 08:11 Resp 18 02/22/22 07:21 BP 107/74 02/22/22 07:21 Pulse Ox 98 02/22/22 08:03 FiO2 Intake & Output 02/21/22 02/22/22 02/22/22 18:59 06:59 18:59 Intake Total 720 500 240 Balance 720 500 240 Intake: Oral 720 500 240 Other: Voiding Method Urinal # Voids 1 - Exam Constitutional: No acute distress, on room air HEENT: Pupils equally reactive to light, atraumatic, normocephalic. Lungs: Clear to auscultation bilaterally, no wheezing, no crackles Cardiovascular: Sinus tachycardia, S1-S2 normal, no murmur, no peripheral edema Abdominal: Soft, nontender, no guarding, rebound or rigidity Extremities: No cyanosis or clubbing Neuro: No focal neurological signs alert - Labs CBC & Chem 7: 02/22/22 05:27 02/20/22 07:14 Labs: Abnormal Lab Results - Last 24 Hours (Table) 02/22/22 Range/Units 05:27 RBC 3.43 L (4.40-5.60) X 10*6/uL Hgb 10.1 L (13.0-17.0) g/dL Hct 31.6 L (39.6-50.0) % Assessment and Plan Assessment: Alcohol intoxication Alcohol withdrawal - WA protocol, thiamine, folic acid - IV fluids -boil off worker following Elevated liver enzymes -Likely secondary alcohol. -US reviewed. -enzymes trending down. Depression/bipolar disorder -On Librium and Celexa -Psych following: Recommendation for inpatient psychiatric admission. One-to-one sitter is in place. He cannot leave AMA. Pulmonary fibrosis with chronic hypoxic respiratory failure -Continue home O2 DVT prophylaxis with SCDs and Lovenox Disposition: Patient is still requiring IV Ativan for all call withdrawal symptoms. Psychiatric team increased patient's oral Librium to 20 mg 4 times daily. Psychiatric team feels patient does meet criteria for inpatient psychiatric admission.
[2022-02-22 11:54] LABS: African American GFR (CKD) 135.6 (60.0-200.0); Albumin 3.4 g/dL (3.8-4.9); Albumin/Globulin Ratio 1.42 (1.60-3.17); Anion Gap 14.5 mmol/L (10.00-18.00); BUN/Creat Ratio 10.2 Ratio (12.00-20.00); Blood Urea Nitrogen 5.1 mg/dL (9.0-27.0); Calcium 8.9 mg/dL (8.7-10.3); Carbon Dioxide 25.5 mmol/L (20.0-27.5); Globulin 2.4 g/dL (1.6-3.3); Potassium 3.7 mmol/L (3.5-5.5); Total Bilirubin 0.3 mg/dL (0.30-1.20); Total Protein 5.8 g/dL (6.2-8.2)
--- NOTE | 2022-02-22 13:07 | P.PN ---
Progress Note - Text Progress Note Date: 02/22/22 Interval History: Patient was seen resting in bed and was directable and agreeable to speak with telegraphic typewriter mechanic in his room. Present at the patient's bedside is his and daughter. Currently, the patient is not reporting any suicidal or homicidal ideation, intention, and/or plan. Despite the patient's family initially endorsing a desire for him to get mental health help, during this stay, the patient's family and the patient expressed no desire for inpatient psychiatric treatment and would prefer to follow-up in the outpatient setting. The patient reports that he has many reasons to live including future grandchildren and his love for his family. The patient does acknowledge that he has an alcohol problem. His family and him both report that the patient was sober for 8 months prior to relapsing into alcohol use after he was having poor pain management. The patie nt expresses no harm to self or others at this time. He denies any access to firearms or other weapons. He denies any auditory or visual hallucinations. He reports no paranoia or other delusions. The patient's family was presented with the option to petition the patient for mental health treatment if necessary. Mental Status Exam: General Appearance: Patient appears to be stated age is alert, directable, and cooperative. Behavior: Patient is calmly seated without any agitated behavior. Speech: Patient's speech is fluent and nonpressured. Mood/Affect: Mood is improving mildly, affect is congruent and constricted. Suicidality/Homicidality: Patient denies having any suicidal or homicidal ideation intent or plan. Perceptions: Patient denies any visual hallucinations and denies any auditory hallucinations Though content/process: There is no evidence of any delusional thought content and thought process is linear and goal-directed. Memory and concentration: AOX3, grossly intact for the purposes of this session Judgment and insight: Fair Vital Signs Temp 98.1 F 02/22/22 07:21 Pulse 100 02/22/22 08:11 Resp 18 02/22/22 07:21 BP 107/74 02/22/22 07:21 Pulse Ox 98 02/22/22 08:03 FiO2 Intake & Output 02/21/22 02/22/22 02/22/22 18:59 06:59 18:59 Intake Total 720 500 240 Balance 720 500 240 Intake: Oral 720 500 240 Other: Voiding Method Urinal # Voids 1 Laboratory Results - Last 24 Hours 02/22/22 02/22/22 05:27 05:27 WBC 5.93 RBC 3.43 L Hgb 10.1 L Hct 31.6 L MCV 92.1 MCH 29.4 MCHC 32.0 RDW 13.4 Plt Count 201 MPV 10.3 Immature Gran % (Auto) 0.5 Absolute Nucleated RBC 0 Neutrophils % 58.0 Lymphocytes % 25.3 Monocytes % 12.0 Eosinophils % 3.7 Basophils % 0.5 Immature Gran # 0.03 Neutrophils # 3.44 Lymphocytes # 1.50 Monocytes # 0.71 Eosinophils # 0.22 Basophils # 0.03 NRBC/100 WBC Diff 0 Sodium 138 Potassium 3.7 Chloride 98 Carbon Dioxide 25.5 Anion Gap 14.50 BUN 5.1 L Creatinine 0.5 L Est GFR (CKD-EPI)AfAm 135.6 Est GFR (CKD-EPI)NonAf 117.0 BUN/Creatinine Ratio 10.20 L Glucose 93 Calcium 8.9 Total Bilirubin 0.30 AST 39 H ALT 38 Alkaline Phosphatase 89 Total Protein 5.8 L Albumin 3.4 L Globulin 2.4 Albumin/Globulin Ratio 1.42 L Assessment Alcohol use disorder 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 The patient has no previous attempts at suicide. Reports strong reasons to live including for himself and for his family. The patient's family was presented with the option to petition the patient for mental health treatment if necessary. -Delirium precautions recommended with patient including - avoiding use of narcotics and FURNITURE MOVER DRIVER sedatives, limit anticholinergic medications when possible, frequent re-orientation, minimize use of restraints, open window shades during the day and close them at night -Would recommend the following medication changes/additions: No medication recommendations at this time. This provider discussed initiating Campral for alcohol use disorder however the patient is not interested at this time. -Continue CIWA protocol with PRN Ativan for alcohol withdrawal. Continue to monitor vital signs. -Discontinue one-to-one sitter -Communicated plan to patient's nurse -Psychiatry will sign off at this time. Please reconsult us or contact us with any questions.
[2022-02-22] MEDS: QUEtiapine 50 MG TAB PO SCH (21:02)
[2022-02-23] MEDS: MELATONIN 3 MG TABLET PO PRN (00:11)
[2022-02-23] MEDS: MORPHINE SULFATE IR 15 MG TABLET PO PRN ×4 (00:29→20:24)
[2022-02-23] MEDS: IPRATROPIUM-ALBUTEROL 3 ML NEB INHALATION SCH ×4 (07:10→20:05)
[2022-02-23] MEDS: THIAMINE 100 MG TAB PO SCH ×2 (08:29→17:28)
[2022-02-23] MEDS: FOLIC ACID 1 MG TAB PO SCH (08:30)
[2022-02-23] MEDS: CITALOPRAM HYDROBROMIDE 20 MG TAB PO SCH (08:30)
[2022-02-23] MEDS: SODIUM CHLORIDE 0.9% 1,000 ML IV SCH ×2 (08:33→21:07)
--- NOTE | 2022-02-23 15:34 | P.PN ---
Subjective Patient was examined at bedside today continues to complain of some DTs and receiving appropriate Ativan per protocol. We have started to wean off of Librium and plan for discharge in the next 24 hours most likely. Objective - Vital Signs Vital signs: Vital Signs Temp 97.3 F L 02/23/22 13:36 Pulse 97 02/23/22 13:36 Resp 18 02/23/22 13:36 BP 101/68 02/23/22 13:36 Pulse Ox 97 02/23/22 13:36 FiO2 Intake & Output 02/22/22 02/23/22 02/23/22 18:59 06:59 18:59 Intake Total 480 500 598 Output Total 1100 Balance 480 500 -502 Intake: Oral 480 500 598 Output: Urine 1100 Other: Voiding Method Urinal Urinal Urinal # Voids 1 - Exam Constitutional: No acute distress, on room air HEENT: Pupils equally reactive to light, atraumatic, normocephalic. Lungs: Clear to auscultation bilaterally, no wheezing, no crackles Cardiovascular: Sinus tachycardia, S1-S2 normal, no murmur, no peripheral edema Abdominal: Soft, nontender, no guarding, rebound or rigidity Extremities: No cyanosis or clubbing Neuro: No focal neurological signs alert - Labs CBC & Chem 7: 02/22/22 05:27 02/22/22 05:27 Assessment and Plan Assessment: Alcohol intoxication Alcohol withdrawal - CIWA protocol, thiamine, folic acid - IV fluids - car worker following Elevated liver enzymes -Likely secondary alcohol. -US reviewed. -enzymes trending down. Depression/bipolar disorder -On Librium will begin taper and Celexa -Psych following: Recommendation for inpatient psychiatric admission. One-to-one sitter is in place. He cannot leave AMA. Pulmonary fibrosis with chronic hypoxic respiratory failure -Continue home O2 DVT prophylaxis with SCDs and Lovenox Disposition: Patient is still requiring IV Ativan for all call withdrawal symptoms. As per psychiatry team patient does not meet criteria for inpatient psych.
[2022-02-23 16:47] LABS: Basophils % (A) 1 %; Eosinophils # (A) 0.2 k/uL (0-0.7); Eosinophils % (A) 3 %; HCT 31.6 % (39.0-53.0); Lymphocytes # (A) 1.9 k/uL (1.0-4.8); Lymphocytes % (A) 34 %; MCH 29.9 pg (25.0-35.0); MCHC 31.1 g/dL (31.0-37.0); MCV 96.4 fL (80.0-100.0); Mean Platelet Volume 7.5; Monocytes # (A) 0.6 k/uL (0-1.0); Monocytes % (A) 11 %; Neutrophils # (A) 2.6 k/uL (1.3-7.7); Neutrophils % (A) 47 %; Platelet Count 226 k/uL (150-450); RBC 3.27 m/uL (4.30-5.90); RDW 13.8 % (11.5-15.5); WBC 5.5 k/uL (3.8-10.6)
[2022-02-23 18:01] LABS: HGB 9.8 gm/dL (13.0-17.5)
[2022-02-23] MEDS: QUEtiapine 50 MG TAB PO SCH (21:06)
[2022-02-24 00:02] LABS: African American GFR (CKD) 123.9 (60.0-200.0); Anion Gap 12.4 mmol/L (10.00-18.00); BUN/Creat Ratio 6.85 Ratio (12.00-20.00); Blood Urea Nitrogen 4.3 mg/dL (9.0-27.0); Carbon Dioxide 26.1 mmol/L (20.0-27.5); Non-African American GFR(CKD) 106.9 (60.0-200.0); Potassium 3.6 mmol/L (3.5-5.5)
[2022-02-24] MEDS: MORPHINE SULFATE IR 15 MG TABLET PO PRN ×3 (01:47→13:10)
[2022-02-24 02:42] VITALS: RESP 18
[2022-02-24] MEDS: IPRATROPIUM-ALBUTEROL 3 ML NEB INHALATION SCH ×2 (07:09→11:10)
[2022-02-24] MEDS: FOLIC ACID 1 MG TAB PO SCH (07:38)
[2022-02-24] MEDS: THIAMINE 100 MG TAB PO SCH (07:38)
[2022-02-24] MEDS: CITALOPRAM HYDROBROMIDE 20 MG TAB PO SCH (07:38)
[2022-02-24 08:29] VITALS: TEMP 98.2
[2022-02-24 10:28] LABS: Basophils # (A) 0.02 X 10*3/uL (0.00-0.10); Basophils % (A) 0.3 %; Eosinophils # (A) 0.23 X 10*3/uL (0.04-0.35); Eosinophils % (A) 3.8 %; HCT 30.8 % (39.6-50.0); HGB 9.8 g/dL (13.0-17.0); Immature Grans, Automated 0.3 %; Lymphocytes # (A) 2.29 X 10*3/uL (0.90-5.00); Lymphocytes % (A) 37.8 %; MCH 29.6 pg (27.0-32.0); MCHC 31.8 g/dL (32.0-37.0); MCV 93.1 fL (80.0-97.0); Mean Platelet Volume 9.6 fL (9.5-12.2); Monocytes # (A) 0.91 X 10*3/uL (0.20-1.00); NRBC Per 100 WBC 0 /100 WBCS (0.0-0.0); Neutrophils # (A) 2.59 X 10*3/uL (1.80-7.70); Neutrophils % (A) 42.8 %; Platelet Count 246 X 10*3/uL (140-440); RBC 3.31 X 10*6/uL (4.40-5.60); RDW 14.1 % (11.5-14.5); WBC 6.06 X 10*3/uL (4.50-10.00)
[2022-02-24 11:01] LABS: African American GFR (CKD) 123.3 (60.0-200.0); BUN/Creat Ratio 6.4 Ratio (12.00-20.00); Calcium 9.2 mg/dL (8.7-10.3); Carbon Dioxide 28.5 mmol/L (20.0-27.5); Non-African American GFR(CKD) 106.4 (60.0-200.0); Potassium 3.8 mmol/L (3.5-5.5)
[2022-02-24] MEDS: SODIUM CHLORIDE 0.9% 1,000 ML IV SCH (13:11)
[2022-02-24 14:07] VITALS: BP 115/77; PULSE 94
--- NOTE | 2022-02-24 14:07 | P.DS ---
Providers Date of admission: 02/18/22 13:42 Attending physician: Shyann Arredondo MD Consults: 02/19/22 14:38 Consult Physician Routine Consulting Provider: Cem Jarrett Consult Reason/Comments: Major depression Do you want consulting provider notified?: Yes Primary care physician: Brian Arzola MD Hospital Course: Patient is a 61 yo CM with a hx of ETOH abuse, DTs, pulmonary fibrosis with special events fundraiser jorge hypoxic respiratory failure on 2 L, prior cardiac arrest, and chronic low back pain who was brought in via EMS when his had concerns of ETOH withdrawal. In the ED he underwent an extensive evaluation. He ETOH was 373, AST 118 and ALT 85. He had an Anion gap metabolic acidosis due to ETOH. EKG obtained which showed sinus tachycardia. Patient seen and examined at bedside. He has just received 1 mg of Ativan. He is obtunded and wakes up says 1-2 words and then falls back asleep. He is unable to answer questions. No family or friends present at bedside. All information is obtained from thorough record review including prior hospitalization on 02/03/22 through 02/04/22. Additionally per EMS report patient has been drinking heavily has not been eating and has run out of his morphine. Unable to complete review of systems secondary to patient's lethargy. Patient was examined at bedside today not complaining of any new symptomatology. Family was present at bedside. He is currently on Librium we will discontinue the use of that he is recommending anything on Cipro protocol. No signs of DTs, hallucinations auditory or visual. Patient is asked to follow-up with his primary care doctor, director of staff development for his diagnoses appointment fibrosis and psychiatrist. Patient was evaluated by psychiatry team as well and stated that he did not meet criteria for inpatient psychiatric evaluation. Patient is okay be discharged from their perspective as well as from internal medicine. Patient denies any symptoms and is asked to follow-up any agrees. He's been educated regarding alcohol cessation. Patient Condition at Discharge: Fair Plan - Discharge Summary Discharge Rx Participant: Yes New Discharge Prescriptions: New Albuterol Inhaler [Ventolin Hfa Inhaler] 1 puff INHALATION RT-TID 30 Days #8 gm Continue QUEtiapine [SEROquel] 50 mg PO HS Folic Acid 1 mg PO DAILY #30 tab hydrOXYzine HCL [Atarax] 10 mg PO QID PRN PRN Reason: Anxiety traMADol HCL 50 mg PO QID PRN PRN Reason: Pain Thiamine HCl [Vitamin B-1] 100 mg PO DAILY Citalopram Hydrobromide [CeleXA] 40 mg PO DAILY Morphine Sulfate Ir [MSIR] 15 mg PO QID 3 Days #12 tab Discharge Medication List Citalopram Hydrobromide [CeleXA] 40 mg PO DAILY 03/25/21 [History] QUEtiapine [SEROquel] 50 mg PO HS 03/25/21 [History] Folic Acid 1 mg PO DAILY #30 tab 03/30/21 [Rx] hydrOXYzine HCL [Atarax] 10 mg PO QID PRN 02/03/22 [History] traMADol HCL 50 mg PO QID PRN 02/03/22 [History] Morphine Sulfate Ir [MSIR] 15 mg PO QID 3 Days #12 tab 02/04/22 [Rx] Thiamine HCl [Vitamin B-1] 100 mg PO DAILY 02/17/22 [History] Albuterol Inhaler [Ventolin Hfa Inhaler] 1 puff INHALATION RT-TID 30 Days #8 gm 02/24/22 [Rx] Follow up Appointment(s)/Referral(s): Brian Arzola MD [Primary Care Provider] - 1-2 days [facility], [NON-STAFF] - 1-2 Days Cem Jarrett MD [Medical Doctor] - 1 Week Discharge/Stand Alone Forms: AA Meetings [place], [facility], Outpatient Counseling Discharge Disposition: HOME WITH HOME HEALTH SERVICES
== END 2022-02-24 15:25 | disposition home health service (06) | DRG 897 ==
LOC: EC 12:59 → 6NMEDSUR 15:50 → OBSVTOIN 02-18 13:42 → 6NMEDSUR 02-23 22:19
PROVIDERS: ADMIT Internal Medicine; ATTEND Internal Medicine
DX: F10.231 Alcohol dependence with withdrawal delirium (principal); E87.2 Acidosis; J96.11 Chronic respiratory failure with hypoxia; D72.829 Elevated white blood cell count, unspecified; F10.229 Alcohol dependence with intoxication, unspecified; F31.9 Bipolar disorder, unspecified; F41.9 Anxiety disorder, unspecified; G89.29 Other chronic pain; J84.10 Pulmonary fibrosis, unspecified; M41.9 Scoliosis, unspecified; Y90.8 Blood alcohol level of 240 mg/100 ml or more; Z79.899 Other long term (current) drug therapy; Z80.0 Family history of malignant neoplasm of digestive organs; Z86.74 Personal history of sudden cardiac arrest; Z63.4 Disappearance and death of family member; Z99.81 Dependence on supplemental oxygen; Z91.51 Personal history of suicidal behavior
CPT/HCPCS: 36415; 76705; 80048; 80053; 80306; 80320; 81001; 82150; 83690; 83735; 84100; 85025; 85027; 85610; 93005; 94640; 94760; 96361; 96372; 96374; 96376; 99285

== ENCOUNTER 2023-10-13 22:56 | Inpatient (IN) | payer MEDICARE, OTHER ==
--- NOTE | 2023-10-13 23:21 | ED ---
SOB HPI - General Chief Complaint: Shortness of Breath Stated Complaint: Difficulty Breathing Time Seen by Provider: 10/13/23 23:06 Source: family Mode of arrival: wheelchair Limitations: no limitations - History of Present Illness Initial Comments: 's patient is a 63-year-old man who presents to have evaluation of cough and shortness of breath. When I asked the patient why he is here he states "I'm drinking too much." Patient and note that this may be leading him to have change in his cough and shortness of breath going back 2 days now. Patient has history of idiopathic pulmonary fibrosis and is on oxygen at home 2 L [id number]. His medical sales consultant is Dr. Nugent. He does take Ofev, states that sometimes when he is drinking is not taking this medicine. No recent fever or chills. The cough is having some sputum now. No chest pain. No change in urination or bowel movements. On review of systems she has chronic back pain. MD Complaint: shortness of breath, cough Onset/Timin -: days(s) Severity scale (1-10): 0 Consistency: constant Improves With: nothing Worsens With: nothing Known History Of: other (Fibrosis) Associated Symptoms: cough - Related Data Home Oxygen Therapy: Yes Home Oxygen Amount: 2 Liters Home Medications Medication Instructions Recorded Confirmed Citalopram Hydrobromide [CeleXA] 40 mg PO DAILY 03/25/21 10/14/23 QUEtiapine [SEROquel] 50 mg PO AC-BID@0800,1700 03/25/21 10/18/23 Mupirocin 2% Oint [Bactroban 2% 1 applic TOPICAL Q2D 10/14/23 10/14/23 Oint] busPIRone HCL [Buspar] 7.5 mg PO BID 10/14/23 10/14/23 QUEtiapine [SEROquel] 100 mg PO HS 10/18/23 10/18/23 Previous Rx's Medication Instructions Recorded Folic Acid 1 mg PO DAILY #30 tab 03/30/21 Albuterol Nebulized [Ventolin 2.5 mg INHALATION RT-TID ml 10/21/23 Nebulized] HYDROcodone/APAP 5-325MG [[place] 1 each PO Q6HR PRN #7 tab 10/21/23 5-325] Lactulose [Cephulac] 20 gm PO BID PRN ml 10/21/23 Multivitamins, Thera [Multivitamin 1 each PO DAILY tab 10/21/23 (formulary)] Simethicone Chew [Mylicon Chew] 40 mg PO QID tab 10/21/23 Thiamine [Vitamin B-1] 100 mg PO DAILY #7 tablet 10/21/23 Allergies Allergy/AdvReac Type Severity Reaction Status Date / Time No Known Allergies Allergy Verified 10/23/23 07:57 Review of Systems ROS Statement: Those systems with pertinent positive or pertinent negative responses have been documented in the HPI. ROS Other: All systems not noted in ROS Statement are negative. Constitutional: Denies: fever, chills Respiratory: Reports: cough, dyspnea, wheezes. Denies: hemoptysis, stridor Cardiovascular: Denies: chest pain, palpitations, orthopnea, edema, syncope Gastrointestinal: Denies: abdominal pain, nausea, vomiting, diarrhea Genitourinary: Denies: dysuria, frequency, hematuria Musculoskeletal: Denies: back pain Skin: Denies: rash Neurological: Denies: headache, weakness, numbness Past Medical History Past Medical History: Musculoskeletal Disorder Additional Past Medical History / Comment(s): ETOH abuse, DTs, chronic low back pain/herniated discs/scoliosis/spinal stenosis, right shoulder, pulmonary fibrosis, Home O2 3L History of Any Multi-Drug Resistant Organisms: None Reported Past Surgical History: Orthopedic Surgery Additional Past Surgical History / Comment(s): R ankle fx with surgical repair- pin in and out, back injections at [facility]. Left knee Past Anesthesia/Blood Transfusion Reactions: No Reported Reaction Additional Past Anesthesia/Blood Transfusion Reaction / Comment(s): Pt has never received blood. Past Psychological History: Anxiety, Depression Smoking Status: Never smoker Past Alcohol Use History: Abuse, Daily, Heavy Past Drug Use History: None Reported - Past Family History Father Family Medical History: Dementia Additional Family Medical History / Comment(s): Father is . Mother Family Medical History: Cancer Additional Family Medical History / Comment(s): Mother at age 64yrs of pancreatic cancer. General Exam Limitations: no limitations General appearance: alert, in no apparent distress, appears intoxicated Head exam: Present: atraumatic, normocephalic Eye exam: Present: normal appearance. Absent: scleral icterus, conjunctival injection ENT exam: Present: mucous membranes dry Neck exam: Present: normal inspection, full ROM Respiratory exam: Present: respiratory distress, rales. Absent: wheezes, rhonchi, stridor Cardiovascular Exam: Present: normal rhythm, tachycardia, normal heart sounds. Absent: systolic murmur, diastolic murmur, rubs, gallop GI/Abdominal exam: Present: soft. Absent: distended, tenderness, guarding, rebound, rigid, mass Extremities exam: Present: normal inspection, normal capillary refill. Absent: pedal edema, calf tenderness Back exam: Present: normal inspection. Absent: CVA tenderness (R), CVA te nderness (L) Neurological exam: Present: alert Skin exam: Present: warm, dry, intact, normal color. Absent: rash Course Vital Signs 10/13/23 10/13/23 10/13/23 23:01 23:43 23:46 Temperature 97.9 F Pulse Rate 113 H 101 H Respiratory 22 18 18 Rate Blood Pressure 119/77 109/77 O2 Sat by Pulse 85 L 98 Oximetry Fraction of Inspired Oxygen (FIO2) 10/14/23 10/14/23 10/14/23 00:32 02:30 03:24 Temperature Pulse Rate 121 H 101 H 115 H Respiratory 18 23 18 Rate Blood Pressure 119/94 90/66 130/99 O2 Sat by Pulse 93 L 93 L Oximetry Fraction of Inspired Oxygen (FIO2) 10/14/23 10/14/23 10/14/23 04:00 05:00 06:00 Temperature Pulse Rate 116 H 118 H 124 H Respiratory 22 20 16 Rate Blood Pressure 147/104 136/100 144/103 O2 Sat by Pulse 92 L 92 L 97 Oximetry Fraction of Inspired Oxygen (FIO2) 10/14/23 10/14/23 07:48 09:29 Temperature Pulse Rate 129 H Respiratory 28 H Rate Blood Pressure O2 Sat by Pulse Oximetry Fraction of 50 Inspired Oxygen (FIO2) Medical Decision Making - Medical Decision Making The patient had chest x-ray which I interpreted as showing evidence of pulmonary fibrosis. Was pt. sent in by a medical professional or institution (, PA, GARAGE CONSTRUCTION EQUIPMENT MECHANIC, urgent care, hospital, or [place] health care facility...) When possible be specific @ -[No] Did you speak to anyone other than the patient for history (EMS, parent, family, police, friend...)? What history was obtained from this source @ -[The patient's did contribute to history Did you review nursing and triage notes (agree or disagree)? Why? @ -[I reviewed and agree with nursing and triage notes] Were old charts reviewed (outside hosp., previous admission, EMS record, old EKG, old radiological studies, urgent care reports/EKG's, [place] health care facility records)? Report findings @ -[Yes old charts were reviewed] Differential Diagnosis (chest pain, altered mental status, abdominal pain women, abdominal pain men, vaginal bleeding, weakness, fever, dyspnea, syncope, headache, dizziness, GI bleed, back pain, seizure, CVA, palpatations, mental health, musculoskeletal)? @ -[Differential Dyspnea: Coronary syndrome, arrhythmia, tamponade, asthma, COPD, pulmonary embolism, pneumonia, pneumothorax, pulmonary effusion, anaphylaxis, diabetic ketoacidosis, flailed chest, pulmonary contusion, diaphragmatic rupture, anemia, neuro muscular, this is not meant to be an all-inclusive list. EKG interpreted by me (3pts min.). @ -[I interpreted as above] X-rays interpreted by me (1pt min.). @ -[I interpreted as above CT interpreted by me (1pt min.). @ -[None done] U/S interpreted by me (1pt. min.). @ -[None done] What testing was considered but not performed or refused? (CT, X-rays, U/S, labs)? Why? @ -[None] What meds were considered but not given or refused? Why? @ -[None] Did you discuss the management of the patient with other professionals (professionals i.e. , PA, GARAGE CONSTRUCTION EQUIPMENT MECHANIC, lab, RT, psych nurse, social sciences lecturer, supervisor personnel clerks, teacher, marketing and communications officer, director of casework services)? Give summary @ -Case discussed with the admitting physician and treatment recommendations are incorporated Was smoking cessation discussed for >3mins.? @ -[No] Was critical care preformed (if so, how long)? @ -[No] Were there social determinants of health that impacted care today? How? (Homelessness, low income, unemployed, alcoholism, drug addiction, transportation, low edu. Level, literacy, decrease access to med. care, long-term, rehab)? @ -[No] Was there de-escalation of care discussed even if they declined (Discuss DNR or withdrawal of care, Hospice)? DNR status @ -[No] What co-morbidities impacted this encounter? (DM, HTN, Smoking, COPD, CAD, Cancer, CVA, ARF, Chemo, Hep., AIDS, mental health diagnosis, sleep apnea, morbid obesity)? @ -[Idiopathic pulmonary fibrosis, alcohol dependence Was patient admitted / discharged? Hospital course, mention meds given and route, prescriptions, significant lab abnormalities, going to OR and other pe rtinent info. @ -[Patient is admitted to have further treatment for his lung disease and to treat for impending DTs Undiagnosed new problem with uncertain prognosis? @ -[No] Drug Therapy requiring intensive monitoring for toxicity (Heparin, Nitro, Insulin, Cardizem)? @ -[No] Were any procedures done? @ -[No] Diagnosis/symptom? @ -[Acute exacerbation of pulmonary fibrosis Alcohol dependence with impending DTs Acute, or Chronic, or Acute on Chronic? @ -[Acute on chronic Uncomplicated (without systemic symptoms) or Complicated (systemic symptoms)? @ -[Complicated by dyspnea Side effects of treatment? @ -[No] Exacerbation, Progression, or Severe Exacerbation? @ -[Exacerbation of pulmonary fibrosis Poses a threat to life or bodily function? How? (Chest pain, [place], [place], pneumonia, PE, COPD, DKA, ARF, appy, cholecystitis, CVA, Diverticulitis, Homicidal, Suicidal, threat to staff... and all critical care pts) @ -Yes there is significant morbidity and mortality associated with both cond itions, the alcohol withdrawal and the exacerbation of pulmonary fibrosis - Lab Data Result diagrams: 10/19/23 06:57 10/20/23 06:36 Lab Results 10/13/23 10/13/23 10/13/23 Range/Units 23:41 23:41 23:41 WBC 7.6 (3.8-10.6) k/uL RBC 3.89 L (4.30-5.90) m/uL Hgb 13.5 (13.0-17.5) gm/dL Hct 38.4 L (39.0-53.0) % MCV 98.9 (80.0-100.0) fL MCH 34.7 (25.0-35.0) pg MCHC 35.1 (31.0-37.0) g/dL RDW 14.6 (11.5-15.5) % Plt Count 143 L (150-450) k/uL MPV 8.2 Neutrophils % 70 % Lymphocytes % 19 % Monocytes % 7 % Eosinophils % 1 % Basophils % 0 % Neutrophils # 5.4 (1.3-7.7) k/uL Lymphocytes # 1.5 (1.0-4.8) k/uL Monocytes # 0.5 (0-1.0) k/uL Eosinophils # 0.1 (0-0.7) k/uL Basophils # 0.0 (0-0.2) k/uL PT (10.0-12.5) sec INR (<1.2) APTT (22.0-30.0) sec Sodium 121 L (137-145) mmol/L Potassium (3.5-5.1) mmol/L Chloride 90 L (98-107) mmol/L Carbon Dioxide 21 L (22-30) mmol/L Anion Gap 10 mmol/L BUN 5 L (9-20) mg/dL Creatinine 0.53 L (0.66-1.25) mg/dL Est GFR (CKD-EPI)AfAm >90 (>60 ml/min/1.73 sqM) Est GFR (CKD-EPI)NonAf >90 (>60 ml/min/1.73 sqM) Glucose 99 (74-99) mg/dL Lactic Ac Sepsis Rflx Plasma Lactic Acid Cooper 2.7 H* (0.7-2.0) mmol/L Calcium 7.6 L (8.4-10.2) mg/dL Total Bilirubin 1.3 (0.2-1.3) mg/dL AST 222 H (17-59) U/L ALT 331 H (4-49) U/L Alkaline Phosphatase 68 (38-126) U/L Troponin I (0.000-0.034) ng/mL NT-Pro-B Natriuret Pep 4020 pg/mL Total Protein 7.4 (6.3-8.2) g/dL Albumin 4.1 (3.5-5.0) g/dL Procalcitonin (0.02-0.09) ng/mL Serum Alcohol 265 H* mg/dL Influenza Type A (PCR) (Not Detectd) Influenza Type B (PCR) (Not Detectd) RSV (PCR) (Not Detectd) SARS-CoV-2 (PCR) (Not Detectd) 10/13/23 10/13/23 10/13/23 Range/Units 23:41 23:41 23:41 WBC (3.8-10.6) k/uL RBC (4.30-5.90) m/uL Hgb (13.0-17.5) gm/dL Hct (39.0-53.0) % MCV (80.0-100.0) fL MCH (25.0-35.0) pg MCHC (31.0-37.0) g/dL RDW (11.5-15.5) % Plt Count (150-450) k/uL MPV Neutrophils % % Lymphocytes % % Monocytes % % Eosinophils % % Basophils % % Neutrophils # (1.3-7.7) k/uL Lymphocytes # (1.0-4.8) k/uL Monocytes # (0-1.0) k/uL Eosinophils # (0-0.7) k/uL Basophils # (0-0.2) k/uL PT (10.0-12.5) sec INR (<1.2) APTT (22.0-30.0) sec Sodium (137-145) mmol/L Potassium (3.5-5.1) mmol/L Chloride (98-107) mmol/L Carbon Dioxide (22-30) mmol/L Anion Gap mmol/L BUN (9-20) mg/dL Creatinine (0.66-1.25) mg/dL Est GFR (CKD-EPI)AfAm (>60 ml/min/1.73 sqM) Est GFR (CKD-EPI)NonAf (>60 ml/min/1.73 sqM) Glucose (74-99) mg/dL Lactic Ac Sepsis Rflx Plasma Lactic Acid Cooper (0.7-2.0) mmol/L Calcium (8.4-10.2) mg/dL Total Bilirubin (0.2-1.3) mg/dL AST (17-59) U/L ALT (4-49) U/L Alkaline Phosphatase (38-126) U/L Troponin I 0.017 (0.000-0.034) ng/mL NT-Pro-B Natriuret Pep pg/mL Total Protein (6.3-8.2) g/dL Albumin (3.5-5.0) g/dL Procalcitonin 0.05 (0.02-0.09) ng/mL Serum Alcohol mg/dL Influenza Type A (PCR) Not Detected (Not Detectd) Influenza Type B (PCR) Not Detected (Not Detectd) RSV (PCR) Not Detected (Not Detectd) SARS-CoV-2 (PCR) Not Detected (Not Detectd) 10/14/23 10/14/23 Range/Units 00:05 01:31 WBC (3.8-10.6) k/uL RBC (4.30-5.90) m/uL Hgb (13.0-17.5) gm/dL Hct (39.0-53.0) % MCV (80.0-100.0) fL MCH (25.0-35.0) pg MCHC (31.0-37.0) g/dL RDW (11.5-15.5) % Plt Count (150-450) k/uL MPV Neutrophils % % Lymphocytes % % Monocytes % % Eosinophils % % Basophils % % Neutrophils # (1.3-7.7) k/uL Lymphocytes # (1.0-4.8) k/uL Monocytes # (0-1.0) k/uL Eosinophils # (0-0.7) k/uL Basophils # (0-0.2) k/uL PT 10.9 (10.0-12.5) sec INR 1.0 (<1.2) APTT 28.9 (22.0-30.0) sec Sodium (137-145) mmol/L Potassium (3.5-5.1) mmol/L Chloride (98-107) mmol/L Carbon Dioxide (22-30) mmol/L Anion Gap mmol/L BUN (9-20) mg/dL Creatinine (0.66-1.25) mg/dL Est GFR (CKD-EPI)AfAm (>60 ml/min/1.73 sqM) Est GFR (CKD-EPI)NonAf (>60 ml/min/1.73 sqM) Glucose (74-99) mg/dL Lactic Ac Sepsis Rflx Y Plasma Lactic Acid Cooper (0.7-2.0) mmol/L Calcium (8.4-10.2) mg/dL Total Bilirubin (0.2-1.3) mg/dL AST (17-59) U/L ALT (4-49) U/L Alkaline Phosphatase (38-126) U/L Troponin I (0.000-0.034) ng/mL NT-Pro-B Natriuret Pep pg/mL Total Protein (6.3-8.2) g/dL Albumin (3.5-5.0) g/dL Procalcitonin (0.02-0.09) ng/mL Serum Alcohol mg/dL Influenza Type A (PCR) (Not Detectd) Influenza Type B (PCR) (Not Detectd) RSV (PCR) (Not Detectd) SARS-CoV-2 (PCR) (Not Detectd) - EKG Data -: EKG Interpreted by Me EKG shows normal: sinus rhythm, axis (Normal), intervals (Normal) Rate: tachycardia (04/26/2008 bpm) Interpretation: nonspecific ST-T wave changes Disposition Clinical Impression: Alcoholic intoxication, Alcohol withdrawal, Pulmonary fibrosis Disposition: ADMITTED IP TO THIS HOSP Condition: Fair
[2023-10-13 23:49] LABS: Basophils % (A) 0 %; Eosinophils # (A) 0.1 k/uL (0-0.7); Eosinophils % (A) 1 %; HCT 38.4 % (39.0-53.0); HGB 13.5 gm/dL (13.0-17.5); Lymphocytes # (A) 1.5 k/uL (1.0-4.8); Lymphocytes % (A) 19 %; MCH 34.7 pg (25.0-35.0); MCHC 35.1 g/dL (31.0-37.0); MCV 98.9 fL (80.0-100.0); Mean Platelet Volume 8.2; Monocytes # (A) 0.5 k/uL (0-1.0); Monocytes % (A) 7 %; Neutrophils # (A) 5.4 k/uL (1.3-7.7); Neutrophils % (A) 70 %; Platelet Count 143 k/uL (150-450); RBC 3.89 m/uL (4.30-5.90); RDW 14.6 % (11.5-15.5); WBC 7.6 k/uL (3.8-10.6)
[2023-10-13 23:59] LABS: ALT 331 U/L (4-49); AST 222 U/L (17-59); African American GFR (CKD) >90 (>60 ml/min/1.73 sqM); Albumin 4.1 g/dL (3.5-5.0); Alkaline Phosphatase 68 U/L (38-126); Anion Gap 10 mmol/L; Blood Urea Nitrogen 5 mg/dL (9-20); Calcium 7.6 mg/dL (8.4-10.2); Carbon Dioxide 21 mmol/L (22-30); Chloride 90 mmol/L (98-107); Glucose 99 mg/dL (74-99); Non-African American GFR(CKD) >90 (>60 ml/min/1.73 sqM); Sodium 121 mmol/L (137-145); Total Bilirubin 1.3 mg/dL (0.2-1.3); Total Protein 7.4 g/dL (6.3-8.2)
[2023-10-14 00:03] LABS: Alcohol 265 mg/dL
[2023-10-14 00:07] LABS: NT-Pro-B-Type Natriuretic Pept 4020 pg/mL
--- NOTE | 2023-10-14 00:21 | XR ---
EXAM: XR Chest, 2 Views CLINICAL HISTORY: ITS.REASON XR Reason: difficulty breathing TECHNIQUE: Frontal and lateral views of the chest. COMPARISON: Chest CT September 24, 2021. FINDINGS: Lungs: Mild patchy perihilar opacities, correlate for multilobar pneumonia. Pleural space: Unremarkable. No pneumothorax. Heart: Cardiomegaly. Mediastinum: Unremarkable. Normal mediastinal contour. Bones/joints: Unremarkable. No acute fracture. Upper abdomen: Elevated RIGHT hemidiaphragm. IMPRESSION: Mild patchy perihilar opacities, correlate for multilobar pneumonia.
[2023-10-14] MEDS ORDERED: SODIUM CHLORIDE 0.9% 1,000 ML IV STA (00:36)
[2023-10-14] MEDS ORDERED: LORazepam 2 MG/ML INJ IV STA (00:36)
[2023-10-14] MEDS ORDERED: NALOXONE 0.4 MG/ML 1 ML VIAL IV PRN (01:37)
[2023-10-14] MEDS ORDERED: traMADol 50 MG TAB PO PRN (01:40)
[2023-10-14 02:21] LABS: Partial Thromboplastin Time 28.9 sec (22.0-30.0); Prothrombin Time 10.9 sec (10.0-12.5)
--- NOTE | 2023-10-14 02:54 | P.HPIM ---
History of Present Illness H&P Date: 10/14/23 Patient is a 63-year-old male with a PMH of EtOH abuse with history of DTs, idiopathic pulmonary fibrosis on 2 L nasal cannula oxygen at home, and chronic lower back pain who presents to the emergency room for alcohol intoxication, accompanied by his . The patient had received Ativan just prior to the interview and history was thereby supplemented by the patient's and the ED provider. She reports that the patient has an extensive alcohol abuse history and currently drinks a large container of schnapps daily. She reports his last drink was 8 PM earlier tonight. States that the patient had been complaining of shortness of breath over the past few days as well as a mildly productive cough. does report of the patient has only consumed alcohol for the past 3-4 days and has not had any additional food. The patient denied extremity chest discomfort, fever, chills, cough, nausea, vomiting, abdominal pain, diarrhea. Chest x-ray in the emergency room revealed findings consistent with multi lobar pneumonia. EKG reveals sinus tachycardia 108 bpm with T-wave inversion in leads V2 and V3 as well as in leads 3 and aVF. Laboratory evaluation revealed a platelet count of 143, sodium 121, chloride 90, CO2 21, lactic acid 2.7, serum alcohol level 265, viral respiratory panel unremarkable, troponin 0.017, and proBNP 4019 with AST 222 and ALT 331. ED documentation reviewed and case discussed with ED provider. Review of systems: Pertinent positives and negatives as discussed in HPI, a complete review of systems was performed and all other systems are negative. Physical examination: Vital signs reviewed General: non toxic, no distress, appears older than stated age, normal weight Derm: no unusual rashes/lesions, warm Head: atraumatic, normocephalic, symmetric Eyes: EOMI, no lid lag, anicteric sclera, pupils equal round reactive to light ENT: Nose and ears atraumatic Neck: No cervical lymphadenopathy, trachea midline, supple Mouth: no lip lesion, mucus membranes moist Cardiovascular: S1S2 reg, no murmur, positive dorsalis pedis pulse bilateral, no edema Lungs: CTA bilateral, no rhonchi, no rales, no accessory muscle use Abdominal: soft, nontender to palpation, no guarding Ext: muscle strength 4 out of 5 in all 4 extremities grossly, no gross muscle atrophy, no contractures, Neuro: CN II-XI grossly intact, no gross focal neuro deficits, mild outstretched hand tremor and tongue fasciculations Psych: Lethargic, oriented, appropriate affect Assessment: Alcohol intoxication, impending withdrawal Community acquired pneumonia Hypochloremic hyponatremia, likely due to poor oral intake with alcohol int oxication Transaminitis, likely due to EtOH abuse Thrombocythemia, likely due to alcohol abuse Lactic acidosis, likely due to dehydration Chronic conditions: Pulmonary fibrosis Imaging: Chest x-ray in the emergency room revealed findings consistent with multi lobar pneumonia. EKG reveals sinus tachycardia 108 bpm with T-wave inversion in leads V2 and V3 as well as in leads 3 and aVF. Data Review: Laboratory evaluation revealed a platelet count of 143, sodium 121, chloride 90, CO2 21, lactic acid 2.7, serum alcohol level 265, viral respiratory panel unremarkable, troponin 0.017, and proBNP 4019 with AST 222 and ALT 331. Plan: CIWA protocol Continue thiamine and multivitamin Hyponatremia workup sent Monitor BMP Initiate ceftriaxone and azithromycin Check pro-calcitonin levels Monitor LFTs Fall and seizure precautions Monitor lactic acid levels for resolution IV fluids DVT prophylaxis: Lovenox subcu The patient is admitted with an anticipated greater than 2 midnight stay for evaluation of EtOh abuse CODE STATUS: Full Code Discussed with: Patient, Anticipated discharge place: Home Past Medical History Past Medical History: Musculoskeletal Disorder Additional Past Medical History / Comment(s): ETOH abuse, DTs, chronic low back pain/herniated discs/scoliosis/spinal stenosis, right shoulder, pulmonary fibrosis, Home O2 3L History of Any Multi-Drug Resistant Organisms: None Reported Past Surgical History: Orthopedic Surgery Additional Past Surgical History / Comment(s): R ankle fx with surgical repair- pin in and out, back injections at [facility]. Left knee Past Anesthesia/Blood Transfusion Reactions: No Reported Reaction Additional Past Anesthesia/Blood Transfusion Reaction / Comment(s): Pt has never received blood. Past Psychological History: Anxiety, Depression Smoking Status: Never smoker Past Alcohol Use History: Abuse, Daily, Heavy Past Drug Use History: None Reported - Past Family History Father Family Medical History: Dementia Additional Family Medical History / Comment(s): Father is . Mother Family Medical History: Cancer Additional Family Medical History / Comment(s): Mother at age 64yrs of pancreatic cancer. Medications and Allergies Home Medications Medication Instructions Recorded Confirmed Type Citalopram Hydrobromide [CeleXA] 40 mg PO DAILY 03/25/21 02/17/22 History QUEtiapine [SEROquel] 50 mg PO HS 03/25/21 02/17/22 History Folic Acid 1 mg PO DAILY #30 tab 03/30/21 02/17/22 Rx hydrOXYzine HCL [Atarax] 10 mg PO QID PRN 02/03/22 02/17/22 History traMADol HCL 50 mg PO QID PRN 02/03/22 02/17/22 History Morphine Sulfate Ir [MSIR] 15 mg PO QID 3 Days #12 tab 02/04/22 02/17/22 Rx Thiamine HCl [Vitamin B-1] 100 mg PO DAILY 02/17/22 02/17/22 History Albuterol Inhaler [Ventolin Hfa 1 puff INHALATION RT-TID 30 Days 02/24/22 Rx Inhaler] #8 gm Allergies Allergy/AdvReac Type Severity Reaction Status Date / Time No Known Allergies Allergy Verified 10/13/23 23:04 Physical Exam Vitals: Vital Signs Temp Pulse Resp BP Pulse Ox 10/14/23 02:30 101 H 23 90/66 10/14/23 00:32 121 H 18 119/94 93 L 10/13/23 23:46 101 H 18 109/77 98 10/13/23 23:43 18 10/13/23 23:01 97.9 F 113 H 22 119/77 85 L Intake and Output 10/13/23 10/13/23 10/14/23 14:59 22:59 06:59 Other: Weight 62.142 kg Results CBC & Chem 7: 10/13/23 23:41 10/13/23 23:41 Labs: Abnormal Lab Results - Last 24 Hours (Table) 10/13/23 10/13/23 10/13/23 Range/Units 23:41 23:41 23:41 RBC 3.89 L (4.30-5.90) m/uL Hct 38.4 L (39.0-53.0) % Plt Count 143 L (150-450) k/uL Sodium 121 L (137-145) mmol/L Chloride 90 L (98-107) mmol/L Carbon Dioxide 21 L (22-30) mmol/L BUN 5 L (9-20) mg/dL Creatinine 0.53 L (0.66-1.25) mg/dL Plasma Lactic Acid Cooper 2.7 H* (0.7-2.0) mmol/L Calcium 7.6 L (8.4-10.2) mg/dL AST 222 H (17-59) U/L ALT 331 H (4-49) U/L Serum Alcohol 265 H* mg/dL
[2023-10-14] MEDS ORDERED: chlordiazePOXIDE 25 MG CAP PO PRN (03:17)
[2023-10-14 03:46] LABS: Creatinine,Urine Random 20.8 mg/dL
[2023-10-14] MEDS: LORazepam 2 MG/ML INJ IV PRN ×6 (04:02→23:04)
[2023-10-14 04:13] LABS: Appearance,Urine Clear (Clear); Bilirubin,Urine Negative (Negative); Blood,Urine Negative (Negative); Color,Urine Colorless; Glucose,Urine (UA) Negative (Negative); Ketones,Urine Negative (Negative); Leukocyte Esterase,Urine Negative (Negative); Nitrite,Urine Negative (Negative); PH, Urine 7.5 (5.0-8.0); Protein,Urine Negative (Negative); Specific Gravity,Urine 1.005 (1.001-1.035); Urobilinogen,Urine <2.0 mg/dL (<2.0)
[2023-10-14 04:27] LABS: HGB 14.1 gm/dL (13.0-17.5); MCH 35.4 pg (25.0-35.0); MCHC 35.2 g/dL (31.0-37.0); MCV 100.7 fL (80.0-100.0); Macrocytosis Slight; Mean Platelet Volume 7.9; Platelet Count 162 k/uL (150-450); RBC 3.98 m/uL (4.30-5.90); RDW 14.9 % (11.5-15.5); WBC 8.3 k/uL (3.8-10.6)
[2023-10-14 04:40] LABS: ALT 322 U/L (4-49); AST 175 U/L (17-59); African American GFR (CKD) >90 (>60 ml/min/1.73 sqM); Albumin 3.9 g/dL (3.5-5.0); Albumin/Globulin Ratio 1.2; Alkaline Phosphatase 103 U/L (38-126); Anion Gap 8 mmol/L; Blood Urea Nitrogen 5 mg/dL (9-20); Calcium 7.9 mg/dL (8.4-10.2); Carbon Dioxide 24 mmol/L (22-30); Chloride 95 mmol/L (98-107); Globulin 3.2 g/dL; Glucose 96 mg/dL (74-99); Non-African American GFR(CKD) >90 (>60 ml/min/1.73 sqM); Sodium 127 mmol/L (137-145); Total Bilirubin 0.8 mg/dL (0.2-1.3); Total Protein 7.1 g/dL (6.3-8.2)
--- NOTE | 2023-10-14 05:06 | P.CNPUL ---
History of Present Illness Consult date: 10/14/23 Requesting physician: Joesph Mota Reason for consult: pneumonia, pulmonary fibrosis Chief complaint: Acute on chronic dyspnea History of present illness: I am seeing this patient in consultation today 10/14/2023 in the emergency room, he presented with his earlier this morning. On my interview the patient himself has no complaints other than "feeling down". He has been drinking alcohol often. Apparently, reported that he's had worsening shortness of breath. He is chronically dyspneic. He has past medical history significant for chronic interstitial lung disease, likely idiopathic pulmonary fibrosis and is on Ofev. He follows with Dr. Nugent in the pulmonary office. Patient has severe restrictive disease. Recent FVC 45% of predicted. He is oxygen dependent on 2-3 L nasal cannula at home. He also has history of alcoholism, PEA cardiac arrest, chronic lower back pain, and prior orthopedic surgeries. Patient states that he drinks about one half fifth of peppermint schnapps per day. He is currently sitting in bed, on 3 L/m nasal cannula, in no acute distress. As s tated above, he denies any specific complaints other than feeling down. His apparently reported that he's been more short of breath over the last 2 days. He reports a chronic dry cough, although, he is producing clear sputum now. Denies any fevers, chest pain, purulent sputum production. Negative for influenza, RSV, COVID-19. Chest x-ray is consistent with fibrosis and possible mild patchy perihilar opacities or atelectasis. He does have a elevated right hemidiaphragm/ paralysis. He is shaky and anxious. Serum EtOH level was 265 on arrival. He is on the CIWA protocol. CBC on arrival unremarkable. No leukocytosis. BMP on arrival at a sodium of 121, potassium is 4, chloride 90, serum bicarb 21, BUN 5, creatinine 0.53, glucose 99. Normal saline is infusing at 130 ML's per hour. Lactic acid level was mildly elevated at 2.7 and is down to 2. AST 222, ALT 09/28/1930. Troponin not elevated. NT proBNP 4000. Urinalysis not concerning for UTI. Is on empiric antibiotics for possible community-acquired pneumonia. Currently afebrile. Heart rate is mildly tachycardic. Sinus mechanism. Blood pressure is stable. Vital signs are stable. Review of Systems REVIEW OF SYSTEMS: CONSTITUTIONAL: Denies any recent significant weight loss or weight gain. Denies fevers. EYES: Denies change in vision. EARS, NOSE, MOUTH, THROAT: Denies headaches, denies sore throat. CARDIOVASCULAR: Denies chest pain, palpitations or syncopal episodes. RESPIRATORY: Patient has chronic shortness of breath and a chronic dry nonproductive cough. Cough has been slightly more productive than baseline, mostly clear sputum. Denies any chest pain, hemoptysis. GASTROINTESTINAL: Denies change in appetite, abdominal pain, nausea and vomiting, or diarrhea GENITOURINARY: Denies hematuria, denies infections. MUSKULOSKELETAL: Denies pain, denies swelling. INTEGUMENTARY: Denies rash, denies eczema. NEUROLOGICAL: Denies recent memory loss, no recent seizure activity. PSYCHIATRIC: Denies anxiety, denies depression. HEMATOLOGIC/LYMPHATIC: Denies anemia, denies enlarged lymph node Past Medical History Past Medical History: Musculoskeletal Disorder Additional Past Medical History / Comment(s): ETOH abuse, DTs, chronic low back pain/herniated discs/scoliosis/spinal stenosis, right shoulder, pulmonary fibrosis, Home O2 3L History of Any Multi-Drug Resistant Organisms: None Reported Past Surgical History: Orthopedic Surgery Additional Past Surgical History / Comment(s): R ankle fx with surgical repair- pin in and out, back injections at [facility]. Left knee Past Anesthesia/Blood Transfusion Reactions: No Reported Reaction Additional Past Anesthesia/Blood Transfusion Reaction / Comment(s): Pt has never received blood. Past Psychological History: Anxiety, Depression Smoking Status: Never smoker Past Alcohol Use History: Abuse, Daily, Heavy Past Drug Use History: None Reported - Past Family History Father Family Medical History: Dementia Additional Family Medical History / Comment(s): Father is . Mother Family Medical History: Cancer Additional Family Medical History / Comment(s): Mother at age 64yrs of pancreatic cancer. Medications and Allergies Home Medications Medication Instructions Recorded Confirmed Type Citalopram Hydrobromide [CeleXA] 40 mg PO DAILY 03/25/21 02/17/22 History QUEtiapine [SEROquel] 50 mg PO HS 03/25/21 02/17/22 History Folic Acid 1 mg PO DAILY #30 tab 03/30/21 02/17/22 Rx hydrOXYzine HCL [Atarax] 10 mg PO QID PRN 02/03/22 02/17/22 History traMADol HCL 50 mg PO QID PRN 02/03/22 02/17/22 History Morphine Sulfate Ir [MSIR] 15 mg PO QID 3 Days #12 tab 02/04/22 02/17/22 Rx Thiamine HCl [Vitamin B-1] 100 mg PO DAILY 02/17/22 02/17/22 History Albuterol Inhaler [Ventolin Hfa 1 puff INHALATION RT-TID 30 Days 02/24/22 Rx Inhaler] #8 gm Allergies Allergy/AdvReac Type Severity Reaction Status Date / Time No Known Allergies Allergy Verified 10/13/23 23:04 Physical Exam Vitals: Vital Signs Temp Pulse Resp BP Pulse Ox 10/14/23 03:24 115 H 18 130/99 93 L 10/14/23 02:30 101 H 23 90/66 10/14/23 00:32 121 H 18 119/94 93 L 10/13/23 23:46 101 H 18 109/77 98 10/13/23 23:43 18 10/13/23 23:01 97.9 F 113 H 22 119/77 85 L Intake and Output 10/13/23 10/13/23 10/14/23 14:59 22:59 06:59 Other: Weight 62.142 kg GENERAL EXAM: Alert, 63-year-old white male , appears slightly anxious and has resting tremor, pleasant HEAD: Normocephalic and atraumatic EYES: Normal reaction of pupils, equal size. NOSE: Clear with pink turbinates. THROAT: No erythema or exudates. NECK: No masses, no JVD. CHEST: No chest wall deformity. LUNGS: Equal air entry with posterior vocal crackles. No wheezes, rhonchi, focal dullness. On 3 L/m nasal cannula. No conversational dyspnea or accessory muscle use at rest. CVS: S1 and S2 normal with no audible murmur, regular rhythm. No extra heart sounds ABDOMEN: No hepatosplenomegaly, active bowel sounds, no guarding or rigidity. SPINE: No scoliosis or deformity SKIN: No rashes CENTRAL NERVOUS SYSTEM: No focal deficits, tone is normal in all 4 extremities. EXTREMITIES: There is no peripheral edema, clubbing, or cyanosis. Peripheral pulses are intact. Results - Laboratory Findings CBC and BMP: 10/14/23 03:58 10/13/23 23:41 PT/INR, D-dimer PT 10.9 sec (10.0-12.5) 10/14/23 01:31 INR 1.0 (<1.2) 10/14/23 01:31 Abnormal lab findings: Abnormal Labs 10/13/23 10/13/23 10/13/23 23:41 23:41 23:41 RBC 3.89 L Hct 38.4 L Plt Count 143 L Sodium 121 L Chloride 90 L Carbon Dioxide 21 L BUN 5 L Creatinine 0.53 L Plasma Lactic Acid Cooper 2.7 H* Calcium 7.6 L AST 222 H ALT 331 H Serum Alcohol 265 H* - Diagnostic Findings Chest x-ray: image reviewed Assessment and Plan Assessment: Acute on chronic dyspnea, related to patient's interstitial lung disease, and possible superimposed community-acquired pneumonia. Chest x-ray shows underlying fibrosis with multifocal infiltrates versus atelectasis. There is chronically elevated right hemidiaphragm. Negative for influenza, RSV, COVID- 19. Chronic interstitial lung disease, likely IPF, maintained on a Ofev Chronic hypoxemic respiratory failure, secondary to above Alcohol intoxication, serum alcohol level 265 on arrival Alcoholism, patient reportedly drinks one/half fifth of a peppermint schnapps per day Hypochloremic hyponatremia, possibly related to above and poor oral intake, improving with normal saline infusion Mild transaminitis, probably related to alcoholism History of PEA cardiac arrest Chronic lower back pain History of anxiety/depression Plan: Patient's medications, labs, chest x-ray reviewed Continue supplemental oxygen, on 3 L/min nasal cannula, which is currently around his baseline Continue empiric antibiotics Check procalcitonin level [facility] protocol Vitamin B1 supplementation Continue IV hydration We will continue to follow I have personally seen and examined the patient, performed the documentation and the assessment and plan as written. Number of minutes spent on the visit:20 Time with Patient: Greater than 30
[2023-10-14] MEDS: ALBUTEROL NEBULIZED 2.5 MG/3 ML INHALATION SCH ×3 (07:48→19:57)
[2023-10-14] MEDS ORDERED: THIAMINE 100 MG TAB PO SCH (09:00)
[2023-10-14] MEDS ORDERED: AZITHROMYCIN 500 MG TAB PO SCH (09:00)
[2023-10-14 10:17] LABS: Glucose,Whole Blood 172 mg/dL (70-110)
[2023-10-14 10:20] LABS: Basophils % (A) 0 %; Eosinophils % (A) 0 %; HCT 44.1 % (39.0-53.0); Lymphocytes # (A) 0.5 k/uL (1.0-4.8); Lymphocytes % (A) 3 %; MCH 34.4 pg (25.0-35.0); MCHC 33.9 g/dL (31.0-37.0); MCV 101.5 fL (80.0-100.0); Macrocytosis Slight; Mean Platelet Volume 9.2; Monocytes # (A) 0.7 k/uL (0-1.0); Monocytes % (A) 5 %; Neutrophils % (A) 91 %; Platelet Count 149 k/uL (150-450); RBC 4.35 m/uL (4.30-5.90); RDW 15.4 % (11.5-15.5); WBC 14.3 k/uL (3.8-10.6)
[2023-10-14] MEDS: FOLIC ACID 1 MG TAB PO SCH (10:37)
[2023-10-14] MEDS: MULTIVITAMINS, THERA 1 EACH TAB PO SCH (10:38)
[2023-10-14] MEDS: DEXMEDETOMIDINE/0.9% NACL(PMX) 400 MCG in EMPTY BAG 1 BAG IV SCH (10:54)
[2023-10-14] MEDS: AZITHROMYCIN 500 MG in SODIUM CHLORIDE 0.9% 250 ML IVPB SCH (11:14)
--- NOTE | 2023-10-14 11:14 | P.NPCON ---
History of Present Illness - Reason for Consult hyponatremia - History of Present Illness Reason for consultation: Hyponatremia History of present illness: Patient is a 63-year-old male seen in consultation for hyponatremia. Sodium level was 121 on admission at 11:41 PM dated 10/13/2023. This morning at 3:58 AM it was up to 127. Patient was receiving maintenance fluids with normal saline at 1 30 mL an hour for a few hours but is currently off IV fluids. He also received 1 L bolus of normal saline on admission. Patient came to the hospital due to cough and shortness of breath. He is currently being treated for pneumonia. Patient also has history of alcohol abuse and has been drinking about 6 beers daily. Patient's serum alcohol was elevated at 265. No history of kidney disease. GFR is at baseline. UA is benign. Currently on Ventimask. No evidence of hypotension. He does take Celexa as well as BuSpar outpatient which can both lower sodium level. I don't see any diuretics on his home medication list. Vital signs are stable. General: Resting in bed. HEENT: Oxygen mask noted. LUNGS: Scattered rhonchi. HEART: Tachycardic. ABDOMEN: Nontender. EXTREMITITES: No edema. Past Medical History Past Medical History: Musculoskeletal Disorder Additional Past Medical History / Comment(s): ETOH abuse, DTs, chronic low back pain/herniated discs/scoliosis/spinal stenosis, right shoulder, pulmonary fibrosis, Home O2 3L History of Any Multi-Drug Resistant Organisms: None Reported Past Surgical History: Orthopedic Surgery Additional Past Surgical History / Comment(s): R ankle fx with surgical repair- pin in and out, back injections at [facility]. Left knee Past Anesthesia/Blood Transfusion Reactions: No Reported Reaction Additional Past Anesthesia/Blood Transfusion Reaction / Comment(s): Pt has never received blood. Past Psychological History: Anxiety, Depression Smoking Status: Never smoker Past Alcohol Use History: Abuse, Daily, Heavy Past Drug Use History: None Reported - Past Family History Father Family Medical History: Dementia Additional Family Medical History / Comment(s): Father is . Mother Family Medical History: Cancer Additional Family Medical History / Comment(s): Mother at age 64yrs of pancreatic cancer. Medications and Allergies Home Medications Medication Instructions Recorded Confirmed Type Citalopram Hydrobromide [CeleXA] 40 mg PO DAILY 03/25/21 10/14/23 History QUEtiapine [SEROquel] 50 mg PO HS 03/25/21 10/14/23 History Folic Acid 1 mg PO DAILY #30 tab 03/30/21 10/14/23 Rx Mupirocin 2% Oint [Bactroban 2% 1 applic TOPICAL Q2D 10/14/23 10/14/23 History Oint] busPIRone HCL [Buspar] 7.5 mg PO BID 10/14/23 10/14/23 History Allergies Allergy/AdvReac Type Severity Reaction Status Date / Time No Known Allergies Allergy Verified 10/14/23 07:56 Physical Exam Vitals: Vital Signs Temp Pulse Resp BP Pulse Ox FiO2 10/14/23 09:29 50 10/14/23 07:48 129 H 28 H 10/14/23 06:00 124 H 16 144/103 97 10/14/23 05:00 118 H 20 136/100 92 L 10/14/23 04:00 116 H 22 147/104 92 L 10/14/23 03:24 115 H 18 130/99 93 L 10/14/23 02:30 101 H 23 90/66 10/14/23 00:32 121 H 18 119/94 93 L 10/13/23 23:46 101 H 18 109/77 98 10/13/23 23:43 18 10/13/23 23:01 97.9 F 113 H 22 119/77 85 L Intake and Output 10/13/23 10/14/23 10/14/23 22:59 06:59 14:59 Other: Weight 62.142 kg Results - Lab Results Most recent lab results Calcium 7.9 mg/dL (8.4-10.2) L 10/14/23 03:58 Magnesium 2.0 mg/dL (1.6-2.3) 10/14/23 03:58 10/14/23 09:52 10/14/23 03:58 Assessment and Plan Plan: Assessment: 1. Hypovolemic hyponatremia improved with IV fluids. Sodium level CXXI on admission and up to 127 this morning. 2. Alcohol abuse. 3. Acute hypoxic respiratory failure. 4. Pneumonia on antibiotics. Plan: Currently not on any fluids. Check sodium level now. Adjust fluids based on sodium level. Check TSH. Check serum and urine osmolality. Thank you for the consultation. I will continue to follow the patient with you during his hospital stay.
[2023-10-14] MEDS: THIAMINE 100 MG in SODIUM CHLORIDE 0.9% 50 ML IVPB SCH (11:15)
[2023-10-14] MEDS ORDERED: SODIUM CHLORIDE 0.9% 1,000 ML IV ONE (11:58)
[2023-10-14] MEDS ORDERED: SODIUM CHLORIDE 0.9% 1,000 ML IV SCH (12:00)
[2023-10-14 12:07] LABS: ABG HCO3 26 mmol/L (21-25); ABG PCO2 35 mmHg (35-45); ABG PH 7.48 (7.35-7.45); ABG PO2 76 mmHg (83-108); ABG TCO2 27 mmol/L (19-24); Allen Test Performed? Yes
--- NOTE | 2023-10-14 12:36 | XR ---
EXAMINATION TYPE: XR chest 1V portable DATE OF EXAM: 10/14/2023 CLINICAL HISTORY: Post central line insertion. TECHNIQUE: Single AP portable frontal view of the chest is obtained. COMPARISON: Chest x-ray from one day earlier FINDINGS: There is new sided central venous catheter ascending the left neck. No pneumothorax is george dent. Persistent low lung volumes with increased opacities bilaterally. Cardiac silhouette is stable within normal limits. Osseous structures are intact. Gas prominent bowel loops in the visualized abdomen ar e noted. IMPRESSION: New central venous catheter ascends the left neck and needs to be replaced or repositione d.
--- NOTE | 2023-10-14 13:11 | P.CNPUL ---
History of Present Illness Consult date: 10/14/23 Reason for consult: dyspnea History of present illness: This is a 63-year-old male patient with advanced pulmonary fibrosis. The patient has IPF and currently is on Ofev and he has significant restrictive lung disease in FVC of 45% of predicted. Is also oxygen dependent and utilizes 3 L of O2 nasal cannula. The patient also has history of excessive alcohol consumption. He drinks alcohol excessively around 7 beers a day and he also drinks a fifth of peppermint schnapps every day. The patient presented to the hospital because of worsening shortness of breath, increased cough and congestion. No reported fever. No reported chest pain. In the emergency department, the chest x-ray was consistent with pulmonary fibrosis addition to patchy bilateral pulmonary infiltrates more so on the lung bases. The patient has chronic elevation of the right hemidiaphragm. Upon arrival, his alcohol level was quite elevated at 265. Subsequently, he was brought into the intensive care unit placed on a 50% Ventimask and the patient is having ongoing confusion and restlessness and agitation. There was obvious concern that the patient was going into delirium related to alcohol withdrawal and the patient was started on Precedex. Currently Precedex is running at 0.4 mcg/kg/m. His blood work shows a WBC count of 14.3 with a hemoglobin of 15 and a platelet count of 149. The blood gas showed a pH of 7.48 with a pCO2 of 35 and pO2 of 76 and this was identified to 50%. Sodium level is at 127. Lactic acid level is at 3.6. Troponins are 0.045. The patient is currently on IV fluids of normal saline at rate of 100 mL an hour. His LFTs are showing an AST of 175, AST of 322, and the initial troponin was at 0.045. Echocardiogram was in progress. Meanwhile, the patient was also covered with broad-spectrum antibiotics. The patient is currently on a combination of Rocephin and Zithromax. Mentation is altered. Neurologic exam is nonfocal. Review of Systems ROS unobtainable: due to mental status Past Medical History Past Medical History: Musculoskeletal Disorder Additional Past Medical History / Comment(s): ETOH abuse, DTs, chronic low back pain/herniated discs/scoliosis/spinal stenosis, right shoulder, pulmonary fibrosis, Home O2 3L History of Any Multi-Drug Resistant Organisms: None Reported Past Surgical History: Orthopedic Surgery Additional Past Surgical History / Comment(s): R ankle fx with surgical repair- pin in and out, back injections at [facility]. Left knee Past Anesthesia/Blood Transfusion Reactions: No Reported Reaction Additional Past Anesthesia/Blood Transfusion Reaction / Comment(s): Pt has never received blood. Past Psychological History: Anxiety, Depression Smoking Status: Never smoker Past Alcohol Use History: Abuse, Daily, Heavy Past Drug Use History: None Reported - Past Family History Father Family Medical History: Dementia Additional Family Medical History / Comment(s): Father is . Mother Family Medical History: Cancer Additional Family Medical History / Comment(s): Mother at age 64yrs of pancreatic cancer. Medications and Allergies Home Medications Medication Instructions Recorded Confirmed Type Citalopram Hydrobromide [CeleXA] 40 mg PO DAILY 03/25/21 10/14/23 History QUEtiapine [SEROquel] 50 mg PO HS 03/25/21 10/14/23 History Folic Acid 1 mg PO DAILY #30 tab 03/30/21 10/14/23 Rx Mupirocin 2% Oint [Bactroban 2% 1 applic TOPICAL Q2D 10/14/23 10/14/23 History Oint] busPIRone HCL [Buspar] 7.5 mg PO BID 10/14/23 10/14/23 History Allergies Allergy/AdvReac Type Severity Reaction Status Date / Time No Known Allergies Allergy Verified 10/14/23 07:56 Physical Exam Vitals: Vital Signs Temp Pulse Resp BP Pulse Ox FiO2 10/14/23 12:23 121 H 10/14/23 12:14 121 H 10/14/23 09:29 50 10/14/23 07:48 129 H 28 H 10/14/23 06:00 124 H 16 144/103 97 10/14/23 05:00 118 H 20 136/100 92 L 10/14/23 04:00 116 H 22 147/104 92 L 10/14/23 03:24 115 H 18 130/99 93 L 10/14/23 02:30 101 H 23 90/66 10/14/23 00:32 121 H 18 119/94 93 L 10/13/23 23:46 101 H 18 109/77 98 10/13/23 23:43 18 10/13/23 23:01 97.9 F 113 H 22 119/77 85 L Intake and Output 10/13/23 10/14/23 10/14/23 22:59 06:59 14:59 Intake Total 5.852 Balance 5.852 Intake: Intake, IV Titration 5.852 Amount Dexmedetomidine/0.9% NaCl 5.852 (Pmx) 400 mcg In Empty Bag 1 bag @ 0.2 MCG/KG/HR 3.107 mls/hr IV .Q24H [facility] Rx#:[id number] Other: Weight 62.142 kg GENERAL EXAM: Alert, 63-year-old white male , appears slightly anxious and has resting tremor, patient is also confused. Not oriented to time and place. Unable to have a full combination of this point in time. Is currently on a 50% Ventimask. HEAD: Normocephalic and atraumatic EYES: Normal reaction of pupils, equal size. NOSE: Clear with pink turbinates. THROAT: No erythema or exudates. NECK: No masses, no JVD. CHEST: No chest wall deformity. LUNGS: Equal air entry with posterior vocal crackles. No wheezes, rhonchi, foc al dullness. Patient is tachypneic and has shortness of breath at rest. Coarse crackles in lung bases bilaterally. CVS: S1 and S2 normal with no audible murmur, regular rhythm. No extra heart sounds ABDOMEN: No hepatosplenomegaly, active bowel sounds, no guarding or rigidity. SPINE: No scoliosis or deformity SKIN: No rashes CENTRAL NERVOUS SYSTEM: No focal deficits, tone is normal in all 4 extremities. EXTREMITIES: There is no peripheral edema, clubbing, or cyanosis. Peripheral pulses are intact. Results - Laboratory Findings CBC and BMP: 10/14/23 09:52 10/14/23 10:57 ABG ABG pH 7.48 (7.35-7.45) H 10/14/23 11:56 ABG pCO2 35 mmHg (35-45) 10/14/23 11:56 ABG pO2 76 mmHg (83-108) L 10/14/23 11:56 PT/INR, D-dimer PT 10.9 sec (10.0-12.5) 10/14/23 01:31 INR 1.0 (<1.2) 10/14/23 01:31 Abnormal lab findings: Abnormal Labs 10/13/23 10/13/2310/13/24 23:41 23:41 23:41 WBC RBC 3.89 L Hct 38.4 L MCV MCH Plt Count 143 L Neutrophils # Lymphocytes # ABG pH ABG pO2 ABG HCO3 ABG Total CO2 Sodium 121 L Chloride 90 L Carbon Dioxide 21 L BUN 5 L Creatinine 0.53 L POC Glucose (mg/dL) Osmolality Plasma Lactic Acid Cooper 2.7 H* Calcium 7.6 L AST 222 H ALT 331 H Troponin I Ur Random Sodium Serum Alcohol 265 H* 10/14/23 10/14/23 10/14/23 03:32 03:58 03:58 WBC RBC 3.98 L Hct MCV 100.7 H MCH 35.4 H Plt Count Neutrophils # Lymphocytes # ABG pH ABG pO2 ABG HCO3 ABG Total CO2 Sodium Chloride Carbon Dioxide BUN Creatinine POC Glucose (mg/dL) Osmolality 328 A* Plasma Lactic Acid Cooper Calcium AST ALT Troponin I Ur Random Sodium 38 L Serum Alcohol 10/14/23 10/14/23 10/14/23 03:58 09:52 09:52 WBC 14.3 H RBC Hct MCV 101.5 H MCH Plt Count 149 L Neutrophils # 13.0 H Lymphocytes # 0.5 L ABG pH ABG pO2 ABG HCO3 ABG Total CO2 Sodium 127 L Chloride 95 L Carbon Dioxide BUN 5 L Creatinine 0.55 L POC Glucose (mg/dL) Osmolality Plasma Lactic Acid Cooper Calcium 7.9 L AST 175 H ALT 322 H Troponin I 0.045 H* Ur Random Sodium Serum Alcohol 10/14/23 10/14/23 10/14/23 10:15 10:57 10:57 WBC RBC Hct MCV MCH Plt Count Neutrophils # Lymphocytes # ABG pH ABG pO2 ABG HCO3 ABG Total CO2 Sodium 127 L Chloride Carbon Dioxide BUN Creatinine POC Glucose (mg/dL) 172 H Osmolality Plasma Lactic Acid Cooper 3.6 H* Calcium AST ALT Troponin I Ur Random Sodium Serum Alcohol 10/14/23 11:56 WBC RBC Hct MCV MCH Plt Count Neutrophils # Lymphocytes # ABG pH 7.48 H ABG pO2 76 L ABG HCO3 26 H ABG Total CO2 27 H Sodium Chloride Carbon Dioxide BUN Creatinine POC Glucose (mg/dL) Osmolality Plasma Lactic Acid Cooper Calcium AST ALT Troponin I Ur Random Sodium Serum Alcohol - Diagnostic Findings Chest x-ray: image reviewed Assessment and Plan Plan: Acute on chronic hypoxic respiratory failure currently on a 50% Ventimask. The patient is known to have advanced pulmonary fibrosis/IPF. Patient has developed patchy bilateral pulmonary infiltrates and pneumonia is highly suspected. The viral panel is negative. Pro-calcitonin level is pending. Chronic hypoxic respiratory failure and the patient has limited on O2 at 3 L/m nasal cannula on outpatient basis, due to IPF and chronic elevation of the right hemidiaphragm/diaphragmatic paralysis and severe restrictive lung disease at baseline. IPF maintained on Ofev Altered mentation, secondary to delirium tremens. Alcohol intoxication, serum alcohol level 265 on arrival Alcoholism, patient reportedly drinks one/half fifth of a peppermint schnapps per day Hypochloremic hyponatremia, possibly related to above and poor oral intake, improving with normal saline infusion Mild transaminitis, probably related to alcoholism History of PEA cardiac arrest Chronic lower back pain History of anxiety/depression Troponin leak, likely type II ischemia Mild lactic acidosis Plan Keep the patient a 50% Ventimask. The blood gases were noted. Will titrate oxygen flow to maintain saturation above 90% and is less BiPAP if needed. The patient will be covered with a combination of antibiotics including Rocephin and Zithromax Viral panel is negative Check pro calcitonin level Continue IV fluids normal saline at rate of 100 mL an hour Continue Precedex infusion to control his agitation and delirium Continue Cipro 50 mg at bedtime Librium 25 mg every 4 hours on a when necessary basis in addition to Ativan her CIWA protocol Monitor lactic acid level High likelihood for further decompensation respiratory failure based on his progress. The patient be kept in ICU. Condition is critical for now. Echo is pending Time with Patient: Greater than 30
[2023-10-14] MEDS: CITALOPRAM HYDROBROMIDE 20 MG TAB PO SCH (14:44)
[2023-10-14] MEDS: MORPHINE SULFATE IR 15 MG TABLET PO SCH ×2 (14:44→18:45)
[2023-10-14] MEDS: ENOXAPARIN 40 MG/0.4 ML SYRINGE SQ SCH (14:45)
[2023-10-14] MEDS: SODIUM CHLORIDE 0.9% 1,000 ML IV SCH (17:37)
--- NOTE | 2023-10-14 18:10 | P.CRDCN ---
History of Present Illness Consult date: 10/14/23 History of present illness: HISTORY OF PRESENTING ILLNESS Patient has past medical history of idiopathic pulmonary fibrosis on Ofev, with significant obstructive lung disease with FVC of 45%. He is on chronic 3 L oxygen at home. He drinks a fifth of alcohol and 7 beers almost every day. This time he presented to the hospital because of worsening shortness of breath increased cough and congestion. There was no reported episodes of chest pain chest pressure palpitations lightheadedness or dizziness. Recent chest x-ray shows findings of chronic pulmonary fibrosis along with bilateral lower lobe infiltrates suggestive of possible pneumonia. He had significantly elevated alcohol levels on admission of 265. He also had hyperosmolar hyponatremia and elevated lactate. His initial troponin was negative and therapy troponin was 0.604. His BNP was elevated at 4000 next ECG shows sinus tachycardia with T-wave inversions in lead III. BP 128/96, pulse 109, sinus tachycardia REVIEW OF SYSTEMS 14 point review of system is negative except what is mentioned above in HPI. PHYSICAL EXAMINATION Head: Normocephalic. Eyes: Sclerae nonicteric. Neck: Brisk carotid upstroke, no jugular venous distention. Lungs: Diffuse crackles audible in bilateral lung urbano with reduced air entry in bilateral lower lung urbano Cardiac: Regular rhythm, S1-S2, no S3, no murmur or rub. Abdomen: Soft nontender, positive bowel sounds no organomegaly. Extremities: No edema, intact distal pulses. Neuro: On Precedex drip, going through alcohol withdrawal. Detailed exam was not performed. ASSESSMENT Mild elevation of troponin likely due to hypoxia. Elevated BNP 4000. Appears euvolemic on clinical exam Acute on chronic hypoxic respiratory failure Possible comminuted acquired pneumonia Advanced pulmonary fibrosis with restrictive lung disease with FEV1 of 45% Hyperosmolar state, due to alcohol Hyperosmolar hyponatremia Alcohol intoxication, currently going through alcohol withdrawal PLAN Agree with obtaining an echocardiogram. Look for any alcohol-induced cardio myopathy and RV function. Look for pulmonary hypertension Continue supportive management as per primary team and pulmonary team Sinus tachycardia is physiological. Do not give beta eda Past Medical History Past Medical History: Musculoskeletal Disorder Additional Past Medical History / Comment(s): ETOH abuse, DTs, chronic low back pain/herniated discs/scoliosis/spinal stenosis, right shoulder, pulmonary fibrosis, Home O2 3L History of Any Multi-Drug Resistant Organisms: None Reported Past Surgical History: Orthopedic Surgery Additional Past Surgical History / Comment(s): R ankle fx with surgical repair- pin in and out, back injections at [facility]. Left knee Past Anesthesia/Blood Transfusion Reactions: No Reported Reaction Additional Past Anesthesia/Blood Transfusion Reaction / Comment(s): Pt has never received blood. Past Psychological History: Anxiety, Depression Smoking Status: Never smoker Past Alcohol Use History: Abuse, Daily, Heavy Past Drug Use History: None Reported - Past Family History Father Family Medical History: Dementia Additional Family Medical History / Comment(s): Father is . Mother Family Medical History: Cancer Additional Family Medical History / Comment(s): Mother at age 64yrs of pancreatic cancer. Medications and Allergies Home Medications Medication Instructions Recorded Confirmed Type Citalopram Hydrobromide [CeleXA] 40 mg PO DAILY 03/25/21 10/14/23 History QUEtiapine [SEROquel] 50 mg PO HS 03/25/21 10/14/23 History Folic Acid 1 mg PO DAILY #30 tab 03/30/21 10/14/23 Rx Mupirocin 2% Oint [Bactroban 2% 1 applic TOPICAL Q2D 10/14/23 10/14/23 History Oint] busPIRone HCL [Buspar] 7.5 mg PO BID 10/14/23 10/14/23 History Allergies Allergy/AdvReac Type Severity Reaction Status Date / Time No Known Allergies Allergy Verified 10/14/23 07:56 Physical Exam Vitals: Vital Signs Temp Pulse Resp BP Pulse Ox FiO2 10/14/23 17:00 108 H 29 H 97 10/14/23 16:00 99.7 F H 109 H 34 H 128/96 97 50 10/14/23 15:34 96 50 10/14/23 15:00 110 H 30 H 128/96 95 10/14/23 14:00 112 H 29 H 143/110 95 10/14/23 13:00 120 H 24 143/110 95 10/14/23 12:23 121 H 10/14/23 12:14 121 H 10/14/23 12:00 99.3 F 117 H 24 146/99 94 L 50 10/14/23 11:00 124 H 24 124/89 95 10/14/23 10:00 98.5 F 126 H 30 H 114/92 94 L 50 10/14/23 09:29 50 10/14/23 07:48 129 H 28 H 10/14/23 06:00 124 H 16 144/103 97 10/14/23 05:00 118 H 20 136/100 92 L 10/14/23 04:00 116 H 22 147/104 92 L 10/14/23 03:24 115 H 18 130/99 93 L 10/14/23 02:30 101 H 23 90/66 10/14/23 00:32 121 H 18 119/94 93 L 10/13/23 23:46 101 H 18 109/77 98 10/13/23 23:43 18 10/13/23 23:01 97.9 F 113 H 22 119/77 85 L Intake and Output 10/14/23 10/14/23 10/14/23 06:59 14:59 22:59 Intake Total 620.212 6 Output Total 1255 155 Balance -634.788 -149 Intake: IV 9 6 .9 pressure bag 9 6 Intake, IV Titration 611.212 Amount Azithromycin 500 mg In 250 Sodium Chloride 0.9% 250 ml @ 250 mls/hr IVPB DAILY PENDING SALE TO [facility] Rx#:[id number] Dexmedetomidine/0.9% NaCl 11.212 (Pmx) 400 mcg In Empty Bag 1 bag @ 0.2 MCG/KG/HR 3.107 mls/hr IV .Q24H PENDING SALE TO [facility] Rx#:[id number] Sodium Chloride 0.9% 1, 300 000 ml @ 999 mls/hr IV . Q1H1M ONE Rx#:[id number] Thiamine 100 mg In Sodium 50 Chloride 0.9% 50 ml @ 100 mls/hr IVPB DAILY PENDING SALE TO [facility] Rx#:[id number] Output: Urine 1255 155 Other: Voiding Method Indwelling Catheter Indwelling Catheter # Bowel Movements 1 1 Weight 62.142 kg 62.142 kg ABP, PAP, CO, CI - Last 8 Hours Arterial Blood Pressure 106/59 Arterial Blood Pressure 113/61 Arterial Blood Pressure 124/65 Arterial Blood Pressure 131/67 Arterial Blood Pressure 149/77 Results 10/14/23 09:52 10/14/23 16:10 Cardiac Enzymes 10/13/23 10/13/23 10/14/23 Range/Units 23:41 23:41 03:58 AST 222 H 175 H (17-59) U/L Troponin I 0.017 (0.000-0.034) ng/mL 10/14/23 Range/Units 09:52 AST (17-59) U/L Troponin I 0.045 H* (0.000-0.034) ng/mL Coagulation 10/14/23 Range/Units 01:31 PT 10.9 (10.0-12.5) sec APTT 28.9 (22.0-30.0) sec CBC 10/13/23 10/14/23 10/14/23 Range/Units 23:41 03:58 09:52 WBC 7.6 8.3 14.3 H (3.8-10.6) k/uL RBC 3.89 L 3.98 L 4.35 (4.30-5.90) m/uL Hgb 13.5 14.1 15.0 (13.0-17.5) gm/dL Hct 38.4 L 40.0 44.1 (39.0-53.0) % Plt Count 143 L 162 149 L (150-450) k/uL Comprehensive Metabolic Panel 10/13/23 10/14/23 10/14/23 Range/Units 23:41 03:58 10:57 Sodium 121 L 127 L 127 L (137-145) mmol/L Potassium 4.0 (3.5-5.1) mmol/L Chloride 90 L 95 L (98-107) mmol/L Carbon Dioxide 21 L 24 (22-30) mmol/L BUN 5 L 5 L (9-20) mg/dL Creatinine 0.53 L 0.55 L (0.66-1.25) mg/dL Glucose 99 96 (74-99) mg/dL Calcium 7.6 L 7.9 L (8.4-10.2) mg/dL AST 222 H 175 H (17-59) U/L ALT 331 H 322 H (4-49) U/L Alkaline Phosphatase 68 103 (38-126) U/L Total Protein 7.4 7.1 (6.3-8.2) g/dL Albumin 4.1 3.9 (3.5-5.0) g/dL 10/14/23 Range/Units 16:10 Sodium 127 L (137-145) mmol/L Potassium (3.5-5.1) mmol/L Chloride (98-107) mmol/L Carbon Dioxide (22-30) mmol/L BUN (9-20) mg/dL Creatinine (0.66-1.25) mg/dL Glucose (74-99) mg/dL Calcium (8.4-10.2) mg/dL AST (17-59) U/L ALT (4-49) U/L Alkaline Phosphatase (38-126) U/L Total Protein (6.3-8.2) g/dL Albumin (3.5-5.0) g/dL Current Medications Generic Name Dose Route Start Last Admin Trade Name Freq PRN Reason Stop Dose Admin Albuterol Sulfate 2.5 mg 10/14/23 08:00 10/14/23 11:55 Albuterol Nebulized 2.5 Mg/3 Ml INHALATION 2.5 mg RT-TID ИРИНА Administration Chlordiazepoxide HCl 25 mg 10/14/23 03:17 10/14/23 09:40 Chlordiazepoxide 25 Mg Cap PO 25 mg Q4HR PRN Administration Ciwa 4 To 5 Citalopram Hydrobromide 40 mg 10/14/23 09:00 10/14/23 14:44 Citalopram Hydrobromide 20 Mg Tab PO Not Given DAILY ИРИНА Enoxaparin Sodium 40 mg 10/14/23 09:00 10/14/23 14:45 Enoxaparin 40 Mg/0.4 Ml Syringe SQ 40 mg DAILY ИРИНА Administration Folic Acid 1 mg 10/14/23 09:00 10/14/23 10:37 Folic Acid 1 Mg Tab PO Not Given DAILY ИРИНА Ceftriaxone Sodium 2 gm/ 50 mls @ 100 mls/hr 10/14/23 04:00 10/14/23 04:06 Sodium Chloride IVPB 100 mls/hr Q24H ИРИНА Administration Protocol Dexmedetomidine HCl 400 mcg/ 100 mls @ 3.107 mls/hr 10/14/23 10:15 10/14/23 1 3:56 IV Solution IV 0.4 mcg/kg/hr .Q24H ИРИНА 6.214 mls/hr Titration Protocol 0.2 MCG/KG/HR Thiamine HCl 100 mg/ Sodium 51 mls @ 100 mls/hr 10/14/23 11:00 10/14/23 11:15 Chloride IVPB 100 mls/hr DAILY ИРИНА Administration Azithromycin 500 mg/ Sodium 250 mls @ 250 mls/hr 10/14/23 11:00 10/14/23 11:14 Chloride IVPB 10/16/23 09:59 250 mls/hr DAILY ИРИНА Administration Protocol Sodium Chloride 1,000 mls @ 50 mls/hr 10/14/23 17:30 10/14/23 17:37 Saline 0.9% IV 50 mls/hr .Q20H ИРИНА Administration Lorazepam 1 mg 10/14/23 03:50 10/14/23 09:40 Lorazepam 2 Mg/Ml Inj IV 1 mg Q2HR PRN Administration CIWA 8 or 9 Lorazepam 1 mg 10/14/23 03:50 10/14/23 06:51 Lorazepam 2 Mg/Ml Inj IV 1 mg Q1HR PRN Administration CIWA 10 to 15 Morphine Sulfate 15 mg 10/14/23 09:00 10/14/23 14:44 Morphine Sulfate Ir 15 Mg Tablet PO Not Given QID ИРИНА Morphine Sulfate 4 mg 10/14/23 10:54 Morphine Sulfate 4 Mg/Ml Syringe IVP Q4HR PRN Pain Multivitamins 1 each 10/14/23 09:00 10/14/23 10:38 Multivitamins, Thera 1 Each Tab PO Not Given DAILY ИРИНА Naloxone HCl 0.2 mg 10/14/23 01:37 Naloxone 0.4 Mg/Ml 1 Ml Vial IV Q2M PRN Opioid Reversal Quetiapine Fumarate 50 mg 10/14/23 21:00 Quetiapine 50 Mg Tab PO [facility] Intake and Output 10/14/23 10/14/23 10/14/23 06:59 14:59 22:59 Intake Total 620.212 6 Output Total 1255 155 Balance -634.788 -149 Intake: IV 9 6 .9 pressure bag 9 6 Intake, IV Titration 611.212 Amount Azithromycin 500 mg In 250 Sodium Chloride 0.9% 250 ml @ 250 mls/hr IVPB DAILY PENDING SALE TO [facility] Rx#:[id number] Dexmedetomidine/0.9% NaCl 11.212 (Pmx) 400 mcg In Empty Bag 1 bag @ 0.2 MCG/KG/HR 3.107 mls/hr IV .Q24H ИРИНА Rx#:[id number] Sodium Chloride 0.9% 1, 300 000 ml @ 999 mls/hr IV . Q1H1M ONE Rx#:[id number] Thiamine 100 mg In Sodium 50 Chloride 0.9% 50 ml @ 100 mls/hr IVPB DAILY PENDING SALE TO [facility] Rx#:[id number] Output: Urine 1255 155 Other: Voiding Method Indwelling Catheter Indwelling Catheter # Bowel Movements 1 1 Weight 62.142 kg 62.142 kg Patient Weight 10/15/23 06:59 Weight 62.142 kg 10/14/23 09:52 10/14/23 16:10
[2023-10-14 19:22] LABS: ALT 272 U/L (4-49); AST 154 U/L (17-59); African American GFR (CKD) >90 (>60 ml/min/1.73 sqM); Albumin 3.7 g/dL (3.5-5.0); Alkaline Phosphatase 102 U/L (38-126); Anion Gap 12 mmol/L; Blood Urea Nitrogen 7 mg/dL (9-20); Calcium 7.8 mg/dL (8.4-10.2); Carbon Dioxide 22 mmol/L (22-30); Chloride 93 mmol/L (98-107); Glucose 135 mg/dL (74-99); Non-African American GFR(CKD) >90 (>60 ml/min/1.73 sqM); Sodium 127 mmol/L (137-145); Total Bilirubin 0.9 mg/dL (0.2-1.3); Total Protein 7.2 g/dL (6.3-8.2)
--- NOTE | 2023-10-14 19:36 | P.PCN ---
Date of Procedure: 10/14/23 Preoperative Diagnosis: acute hypoxic respiratory failure Postoperative Diagnosis: same Procedure(s) Performed: Central line Anesthesia: local Surgeon: Ying Nugent Estimated Blood Loss (ml): 0 Pathology: other Condition: critical Disposition: ICU Operative Findings: Procedure(s) Performed: Central line and arterial line insertion Anesthesia: local Surgeon: Ying Nugent Estimated Blood Loss (ml): 0 Pathology: other Condition: critical Disposition: ICU Operative Findings: Indication: Hemodynamic monitoring/Intravenous access. A time-out was completed verifying correct patient, procedure, site, positioning, and implant(s) or special equipment if applicable. The patient was placed in a dependent position appropriate for central line placement based on the vein to be cannulated. The patients neck was prepped and draped in sterile fashion. 1% Lidocaine was used to anesthetize the surrounding skin area. A triple lumen 9F Cordis catheter was introduced into the left subclavian jugular vein using Seldinger technique. The catheter was threaded smoothly over the guide wire and appropriate blood return was obtained. Each lumen of the catheter was evacuated of air and flushed with sterile saline. The catheter was then sutured in place to the skin and a sterile dressing applied. Perfusion to the extremity distal to the point of catheter insertion was checked and found to be adequate. The patient tolerated the procedure well and there were no complications.
[2023-10-14 20:29] LABS: Potassium 4.4 mmol/L (3.5-5.1)
[2023-10-14] MEDS: QUEtiapine 50 MG TAB PO SCH (20:54)
[2023-10-15] MEDS: SODIUM CHLORIDE 0.9% 1,000 ML IV SCH ×2 (00:21→23:48)
[2023-10-15] MEDS: DEXMEDETOMIDINE/0.9% NACL(PMX) 400 MCG in EMPTY BAG 1 BAG IV SCH ×2 (00:22→18:31)
[2023-10-15 04:36] LABS: Basophils % (A) 0 %; Eosinophils # (A) 0.1 k/uL (0-0.7); Eosinophils % (A) 1 %; HCT 37.5 % (39.0-53.0); HGB 12.9 gm/dL (13.0-17.5); Lymphocytes % (A) 11 %; MCH 34.7 pg (25.0-35.0); MCHC 34.5 g/dL (31.0-37.0); MCV 100.6 fL (80.0-100.0); Macrocytosis Slight; Mean Platelet Volume 8.6; Monocytes # (A) 0.5 k/uL (0-1.0); Monocytes % (A) 6 %; Neutrophils # (A) 7.5 k/uL (1.3-7.7); Neutrophils % (A) 81 %; Platelet Count 153 k/uL (150-450); RBC 3.72 m/uL (4.30-5.90); RDW 15.1 % (11.5-15.5); WBC 9.2 k/uL (3.8-10.6)
[2023-10-15 04:40] LABS: African American GFR (CKD) >90 (>60 ml/min/1.73 sqM); Anion Gap 7 mmol/L; Blood Urea Nitrogen 11 mg/dL (9-20); Calcium 7.6 mg/dL (8.4-10.2); Carbon Dioxide 24 mmol/L (22-30); Chloride 98 mmol/L (98-107); Glucose 93 mg/dL (74-99); Non-African American GFR(CKD) >90 (>60 ml/min/1.73 sqM); Potassium 3.6 mmol/L (3.5-5.1); Sodium 129 mmol/L (137-145)
[2023-10-15] MEDS ORDERED: POTASSIUM BICARBONATE/CIT AC 20 MEQ TABLET.EFF NG-TUBE SCH (07:00)
[2023-10-15] MEDS: AZITHROMYCIN 500 MG in SODIUM CHLORIDE 0.9% 250 ML IVPB SCH (08:42)
[2023-10-15] MEDS: THIAMINE 100 MG in SODIUM CHLORIDE 0.9% 50 ML IVPB SCH (08:45)
[2023-10-15] MEDS: ENOXAPARIN 40 MG/0.4 ML SYRINGE SQ SCH (08:47)
[2023-10-15] MEDS: MULTIVITAMINS, THERA 1 EACH TAB PO SCH (08:47)
[2023-10-15] MEDS: FOLIC ACID 1 MG TAB PO SCH (08:47)
[2023-10-15] MEDS: CITALOPRAM HYDROBROMIDE 20 MG TAB PO SCH (08:48)
[2023-10-15] MEDS: LORazepam 2 MG/ML INJ IV PRN ×4 (09:01→16:30)
[2023-10-15] MEDS: chlordiazePOXIDE 25 MG CAP PO SCH ×3 (09:34→21:20)
[2023-10-15] MEDS: ALBUTEROL NEBULIZED 2.5 MG/3 ML INHALATION SCH ×3 (09:37→20:15)
--- NOTE | 2023-10-15 10:05 | P.PN ---
Subjective Progress Note Date: 10/15/23 No new complaints. Pts dyspnea, anxiety/agitation are improved. Still on precedex. Gen: In NAD, non-toxic HEENT: normocephalic, atraumatic, hearing acuity is intant, mucous membranes moist CVS: perfusing all extremities well, no pitting edema, Respiratory: symmetric chest expansion, no accessory muscle use, GI: soft, NTTP, ND, : no suprapubic tenderness, no CVA tenderness MSK/Derm: no rashes, cyanosis Neuro: CN II-XII intact, no motor weakness, Psych: cooperative, euthymic mood, judgment and insight is intact Hospital course: Patient is a 63-year-old male with a PMH of EtOH abuse with history of DTs, idiopathic pulmonary fibrosis on 2 L nasal cannula oxygen at home, and chronic lower back pain who presented to the emergency room for alcohol intoxication, accompanied by his . Chest x-ray in the emergency room revealed findings consistent with multi lobar pneumonia. EKG reveals sinus tachycardia 108 bpm with T-wave inversion in leads V2 and V3 as well as in leads 3 and aVF. Laboratory evaluation revealed a platelet count of 143, sodium 121, chloride 90, CO2 21, lactic acid 2.7, serum alcohol level 265, viral respiratory panel unremarkable, troponin 0.017, and proBNP 4019 with AST 222 and ALT 331. Assessment/plan: Alcohol dependence with alcohol withdrawal syndrome Transaminitis, likely due to EtOH abuse Thrombocythemia, likely due to alcohol abuse -Patient's care was escalated to the ICU yesterday, pulmonology was consulted and case was discussed with them -Continue Precedex, wean as tolerated -Change patient's Librium to 25 mg 3 times daily scheduled -Thiamine, folic acid, multivitamin -CIWA protocol, Ativan as needed Acute on chronic hypoxemic respiratory failure Chronic interstitial pulmonary fibrosis Aspiration pneumonia Lactic acidosis -Continue ceftriaxone, azithromycin -Continue oxygen as needed -Lactic acidosis has resolved -Cardiology consulted, echocardiogram ordered, suspect component of cardiomyopathy Hypochloremic hyponatremia, -Nephrology consulted for fluid management, sodium improving to 129 DVT prophylaxis: Lovenox subcu The patient is admitted with an anticipated greater than 2 midnight stay for e valuation of EtOh abuse CODE STATUS: Full Code Discussed with: Patient, Anticipated discharge place: Home Objective - Vital Signs Vital signs: Vital Signs Temp 97.1 F L 10/15/23 08:00 Pulse 101 H 10/15/23 09:00 Resp 33 H 10/15/23 09:00 BP 128/96 10/14/23 16:00 Pulse Ox 98 10/15/23 09:00 FiO2 50 10/15/23 04:00 Intake & Output 10/14/23 10/15/23 10/15/23 18:59 06:59 18:59 Intake Total 732.212 866.181 159 Output Total 1470 245 59 Balance -737.788 621.181 100 Weight 62.142 kg 60 kg Intake: IV 21 33 9 .9 pressure bag 21 33 9 Intake, IV Titration 711.212 833.181 150 Amount Azithromycin 500 mg In 250 Sodium Chloride 0.9% 250 ml @ 250 mls/hr IVPB DAILY ИРИНА Rx#:[id number] Dexmedetomidine/0.9% NaCl 11.212 58.181 (Pmx) 400 mcg In Empty Bag 1 bag @ 0.2 MCG/KG/HR 3.107 mls/hr IV .Q24H ИРИНА Rx#:[id number] Sodium Chloride 0.9% 1, 100 775 150 000 ml @ 75 mls/hr IV . [id number] ИРИНА Rx#:[id number] Sodium Chloride 0.9% 1, 300 000 ml @ 999 mls/hr IV . Q1H1M ONE Rx#:[id number] Thiamine 100 mg In Sodium 50 Chloride 0.9% 50 ml @ 100 mls/hr IVPB DAILY ИРИНА Rx#:[id number] Output: Urine 1470 245 59 Other: Voiding Method Indwelling Catheter Indwelling Catheter # Bowel Movements 1 2 ABP, PAP, CO, CI - Last Documented Arterial Blood Pressure 129/70 - Labs CBC & Chem 7: 10/15/23 04:10 10/15/23 04:10 Labs: Abnormal Lab Results - Last 24 Hours (Table) 10/14/23 10/14/23 10/14/23 Range/Units 03:32 03:32 09:52 WBC 14.3 H (3.8-10.6) k/uL RBC (4.30-5.90) m/uL Hgb (13.0-17.5) gm/dL Hct (39.0-53.0) % MCV 101.5 H (80.0-100.0) fL Plt Count 149 L (150-450) k/uL Neutrophils # 13.0 H (1.3-7.7) k/uL Lymphocytes # 0.5 L (1.0-4.8) k/uL ABG pH (7.35-7.45) ABG pO2 (83-108) mmHg ABG HCO3 (21-25) mmol/L ABG Total CO2 (19-24) mmol/L Sodium (137-145) mmol/L Chloride (98-107) mmol/L BUN (9-20) mg/dL Creatinine (0.66-1.25) mg/dL Glucose (74-99) mg/dL POC Glucose (mg/dL) (70-110) mg/dL Plasma Lactic Acid Cooper (0.7-2.0) mmol/L Calcium (8.4-10.2) mg/dL AST (17-59) U/L ALT (4-49) U/L Troponin I (0.000-0.034) ng/mL Urine Osmolality 197 L (400-1100) mOsm/kg Ur Random Sodium 38 L (40-220) mmol/L 10/14/23 10/14/23 10/14/23 Range/Units 09:52 10:15 10:57 WBC (3.8-10.6) k/uL RBC (4.30-5.90) m/uL Hgb (13.0-17.5) gm/dL Hct (39.0-53.0) % MCV (80.0-100.0) fL Plt Count (150-450) k/uL Neutrophils # (1.3-7.7) k/uL Lymphocytes # (1.0-4.8) k/uL ABG pH (7.35-7.45) ABG pO2 (83-108) mmHg ABG HCO3 (21-25) mmol/L ABG Total CO2 (19-24) mmol/L Sodium 127 L (137-145) mmol/L Chloride 93 L (98-107) mmol/L BUN 7 L (9-20) mg/dL Creatinine 0.56 L (0.66-1.25) mg/dL Glucose 135 H (74-99) mg/dL POC Glucose (mg/dL) 172 H (70-110) mg/dL Plasma Lactic Acid Cooper (0.7-2.0) mmol/L Calcium 7.8 L (8.4-10.2) mg/dL AST 154 H (17-59) U/L ALT 272 H (4-49) U/L Troponin I 0.045 H* (0.000-0.034) ng/mL Urine Osmolality (400-1100) mOsm/kg Ur Random Sodium (40-220) mmol/L 10/14/23 10/14/23 10/14/23 Range/Units 10:57 10:57 11:56 WBC (3.8-10.6) k/uL RBC (4.30-5.90) m/uL Hgb (13.0-17.5) gm/dL Hct (39.0-53.0) % MCV (80.0-100.0) fL Plt Count (150-450) k/uL Neutrophils # (1.3-7.7) k/uL Lymphocytes # (1.0-4.8) k/uL ABG pH 7.48 H (7.35-7.45) ABG pO2 76 L (83-108) mmHg ABG HCO3 26 H (21-25) mmol/L ABG Total CO2 27 H (19-24) mmol/L Sodium 127 L (137-145) mmol/L Chloride (98-107) mmol/L BUN (9-20) mg/dL Creatinine (0.66-1.25) mg/dL Glucose (74-99) mg/dL POC Glucose (mg/dL) (70-110) mg/dL Plasma Lactic Acid Cooper 3.6 H* (0.7-2.0) mmol/L Calcium (8.4-10.2) mg/dL AST (17-59) U/L ALT (4-49) U/L Troponin I (0.000-0.034) ng/mL Urine Osmolality (400-1100) mOsm/kg Ur Random Sodium (40-220) mmol/L 10/14/23 10/14/23 10/15/23 Range/Units 16:10 20:19 04:10 WBC (3.8-10.6) k/uL RBC 3.72 L (4.30-5.90) m/uL Hgb 12.9 L (13.0-17.5) gm/dL Hct 37.5 L (39.0-53.0) % MCV 100.6 H (80.0-100.0) fL Plt Count (150-450) k/uL Neutrophils # (1.3-7.7) k/uL Lymphocytes # (1.0-4.8) k/uL ABG pH (7.35-7.45) ABG pO2 (83-108) mmHg ABG HCO3 (21-25) mmol/L ABG Total CO2 (19-24) mmol/L Sodium 127 L 127 L (137-145) mmol/L Chloride (98-107) mmol/L BUN (9-20) mg/dL Creatinine (0.66-1.25) mg/dL Glucose (74-99) mg/dL POC Glucose (mg/dL) (70-110) mg/dL Plasma Lactic Acid Cooper (0.7-2.0) mmol/L Calcium (8.4-10.2) mg/dL AST (17-59) U/L ALT (4-49) U/L Troponin I (0.000-0.034) ng/mL Urine Osmolality (400-1100) mOsm/kg Ur Random Sodium (40-220) mmol/L 10/15/23 Range/Units 04:10 WBC (3.8-10.6) k/uL RBC (4.30-5.90) m/uL Hgb (13.0-17.5) gm/dL Hct (39.0-53.0) % MCV (80.0-100.0) fL Plt Count (150-450) k/uL Neutrophils # (1.3-7.7) k/uL Lymphocytes # (1.0-4.8) k/uL ABG pH (7.35-7.45) ABG pO2 (83-108) mmHg ABG HCO3 (21-25) mmol/L ABG Total CO2 (19-24) mmol/L Sodium 129 L (137-145) mmol/L Chloride (98-107) mmol/L BUN (9-20) mg/dL Creatinine 0.60 L (0.66-1.25) mg/dL Glucose (74-99) mg/dL POC Glucose (mg/dL) (70-110) mg/dL Plasma Lactic Acid Cooper (0.7-2.0) mmol/L Calcium 7.6 L (8.4-10.2) mg/dL AST (17-59) U/L ALT (4-49) U/L Troponin I (0.000-0.034) ng/mL Urine Osmolality (400-1100) mOsm/kg Ur Random Sodium (40-220) mmol/L
--- NOTE | 2023-10-15 10:12 | P.PN ---
Subjective Patient is seen in follow-up for hyponatremia. Sodium level 129 this morning. GFR at baseline. Patient didn't get fluids as ordered overnight due to infiltrated IVs. On nasal cannula. Urine output 10-30 mL an hour. Vital signs are stable. General: Resting in bed. Awake. HEENT: Head exam is unremarkable. On nasal cannula. LUNGS: Scattered rhonchi. HEART: Rate and Rhythm are regular. ABDOMEN: No distention. EXTREMITITES: No edema. Objective - Vital Signs Vital signs: Vital Signs Temp 97.1 F L 10/15/23 08:00 Pulse 104 H 10/15/23 09:50 Resp 18 10/15/23 09:50 BP 128/96 10/14/23 16:00 Pulse Ox 99 10/15/23 09:37 FiO2 50 10/15/23 04:00 Intake & Output 10/14/23 10/15/23 10/15/23 18:59 06:59 18:59 Intake Total 732.212 866.181 159 Output Total 1470 245 59 Balance -737.788 621.181 100 Weight 62.142 kg 60 kg Intake: IV 21 33 9 .9 pressure bag 21 33 9 Intake, IV Titration 711.212 833.181 150 Amount Azithromycin 500 mg In 250 Sodium Chloride 0.9% 250 ml @ 250 mls/hr IVPB DAILY ИРИНА Rx#:[id number] Dexmedetomidine/0.9% NaCl 11.212 58.181 (Pmx) 400 mcg In Empty Bag 1 bag @ 0.2 MCG/KG/HR 3.107 mls/hr IV .Q24H ИРИНА Rx#:[id number] Sodium Chloride 0.9% 1, 100 775 150 000 ml @ 75 mls/hr IV . [id number] ИРИНА Rx#:[id number] Sodium Chloride 0.9% 1, 300 000 ml @ 999 mls/hr IV . Q1H1M ONE Rx#:[id number] Thiamine 100 mg In Sodium 50 Chloride 0.9% 50 ml @ 100 mls/hr IVPB DAILY ИРИНА Rx#:[id number] Output: Urine 1470 245 59 Other: Voiding Method Indwelling Catheter Indwelling Catheter # Bowel Movements 1 2 ABP, PAP, CO, CI - Last Documented Arterial Blood Pressure 129/70 - Labs CBC & Chem 7: 10/15/23 04:10 10/15/23 04:10 Labs: Abnormal Lab Results - Last 24 Hours (Table) 10/14/23 10/14/23 10/14/23 Range/Units 03:32 03:32 09:52 WBC 14.3 H (3.8-10.6) k/uL RBC (4.30-5.90) m/uL Hgb (13.0-17.5) gm/dL Hct (39.0-53.0) % MCV 101.5 H (80.0-100.0) fL Plt Count 149 L (150-450) k/uL Neutrophils # 13.0 H (1.3-7.7) k/uL Lymphocytes # 0.5 L (1.0-4.8) k/uL ABG pH (7.35-7.45) ABG pO2 (83-108) mmHg ABG HCO3 (21-25) mmol/L ABG Total CO2 (19-24) mmol/L Sodium (137-145) mmol/L Chloride (98-107) mmol/L BUN (9-20) mg/dL Creatinine (0.66-1.25) mg/dL Glucose (74-99) mg/dL POC Glucose (mg/dL) (70-110) mg/dL Plasma Lactic Acid Cooper (0.7-2.0) mmol/L Calcium (8.4-10.2) mg/dL AST (17-59) U/L ALT (4-49) U/L Troponin I (0.000-0.034) ng/mL Urine Osmolality 197 L (400-1100) mOsm/kg Ur Random Sodium 38 L (40-220) mmol/L 10/14/23 10/14/23 10/14/23 Range/Units 09:52 10:15 10:57 WBC (3.8-10.6) k/uL RBC (4.30-5.90) m/uL Hgb (13.0-17.5) gm/dL Hct (39.0-53.0) % MCV (80.0-100.0) fL Plt Count (150-450) k/uL Neutrophils # (1.3-7.7) k/uL Lymphocytes # (1.0-4.8) k/uL ABG pH (7.35-7.45) ABG pO2 (83-108) mmHg ABG HCO3 (21-25) mmol/L ABG Total CO2 (19-24) mmol/L Sodium 127 L (137-145) mmol/L Chloride 93 L (98-107) mmol/L BUN 7 L (9-20) mg/dL Creatinine 0.56 L (0.66-1.25) mg/dL Glucose 135 H (74-99) mg/dL POC Glucose (mg/dL) 172 H (70-110) mg/dL Plasma Lactic Acid Cooper (0.7-2.0) mmol/L Calcium 7.8 L (8.4-10.2) mg/dL AST 154 H (17-59) U/L ALT 272 H (4-49) U/L Troponin I 0.045 H* (0.000-0.034) ng/mL Urine Osmolality (400-1100) mOsm/kg Ur Random Sodium (40-220) mmol/L 10/14/23 10/14/23 10/14/23 Range/Units 10:57 10:57 11:56 WBC (3.8-10.6) k/uL RBC (4.30-5.90) m/uL Hgb (13.0-17.5) gm/dL Hct (39.0-53.0) % MCV (80.0-100.0) fL Plt Count (150-450) k/uL Neutrophils # (1.3-7.7) k/uL Lymphocytes # (1.0-4.8) k/uL ABG pH 7.48 H (7.35-7.45) ABG pO2 76 L (83-108) mmHg ABG HCO3 26 H (21-25) mmol/L ABG Total CO2 27 H (19-24) mmol/L Sodium 127 L (137-145) mmol/L Chloride (98-107) mmol/L BUN (9-20) mg/dL Creatinine (0.66-1.25) mg/dL Glucose (74-99) mg/dL POC Glucose (mg/dL) (70-110) mg/dL Plasma Lactic Acid Cooper 3.6 H* (0.7-2.0) mmol/L Calcium (8.4-10.2) mg/dL AST (17-59) U/L ALT (4-49) U/L Troponin I (0.000-0.034) ng/mL Urine Osmolality (400-1100) mOsm/kg Ur Random Sodium (40-220) mmol/L 10/14/23 10/14/23 10/15/23 Range/Units 16:10 20: 04:10 WBC (3.8-10.6) k/uL RBC 3.72 L (4.30-5.90) m/uL Hgb 12.9 L (13.0-17.5) gm/dL Hct 37.5 L (39.0-53.0) % MCV 100.6 H (80.0-100.0) fL Plt Count (150-450) k/uL Neutrophils # (1.3-7.7) k/uL Lymphocytes # (1.0-4.8) k/uL ABG pH (7.35-7.45) ABG pO2 (83-108) mmHg ABG HCO3 (21-25) mmol/L ABG Total CO2 (19-24) mmol/L Sodium 127 L 127 L (137-145) mmol/L Chloride (98-107) mmol/L BUN (9-20) mg/dL Creatinine (0.66-1.25) mg/dL Glucose (74-99) mg/dL POC Glucose (mg/dL) (70-110) mg/dL Plasma Lactic Acid Cooper (0.7-2.0) mmol/L Calcium (8.4-10.2) mg/dL AST (17-59) U/L ALT (4-49) U/L Troponin I (0.000-0.034) ng/mL Urine Osmolality (400-1100) mOsm/kg Ur Random Sodium (40-220) mmol/L 10/15/23 Range/Units 04:10 WBC (3.8-10.6) k/uL RBC (4.30-5.90) m/uL Hgb (13.0-17.5) gm/dL Hct (39.0-53.0) % MCV (80.0-100.0) fL Plt Count (150-450) k/uL Neutrophils # (1.3-7.7) k/uL Lymphocytes # (1.0-4.8) k/uL ABG pH (7.35-7.45) ABG pO2 (83-108) mmHg ABG HCO3 (21-25) mmol/L ABG Total CO2 (19-24) mmol/L Sodium 129 L (137-145) mmol/L Chloride (98-107) mmol/L BUN (9-20) mg/dL Creatinine 0.60 L (0.66-1.25) mg/dL Glucose (74-99) mg/dL POC Glucose (mg/dL) (70-110) mg/dL Plasma Lactic Acid Cooper (0.7-2.0) mmol/L Calcium 7.6 L (8.4-10.2) mg/dL AST (17-59) U/L ALT (4-49) U/L Troponin I (0.000-0.034) ng/mL Urine Osmolality (400-1100) mOsm/kg Ur Random Sodium (40-220) mmol/L Assessment and Plan Plan: Assessment: 1. Hypovolemic hyponatremia improved with IV fluids. Sodium level 121 on admission and up to 129 this morning. Urine sodium 38 and urine osmolality 197. TSH normal. 2. Alcohol abuse. 3. Acute hypoxic respiratory failure. 4. Pneumonia on antibiotics. 5. Hypokalemia from poor intake. Replace. Plan: Resume normal saline at 75 mL an hour once he has a functioning IV. Add 1200 mL fluid restriction. Continue to monitor renal function and urine output. Follow-up echocardiogram.
[2023-10-15] MEDS ORDERED: FUROSEMIDE 10 MG/ML 2 ML VIAL IV ONE (11:34)
--- NOTE | 2023-10-15 11:42 | P.PN ---
Subjective Progress Note Date: 10/15/23 This is a 63-year-old male patient with advanced pulmonary fibrosis. The patient has IPF and currently is on Ofev and he has significant restrictive lung disease in FVC of 45% of predicted. Is also oxygen dependent and utilizes 3 L of O2 nasal cannula. The patient also has history of excessive alcohol consumption. He drinks alcohol excessively around 7 beers a day and he also drinks a fifth of peppermint schnapps every day. The patient presented to the hospital because of worsening shortness of breath, increased cough and congestion. No reported fever. No reported chest pain. In the emergency department, the chest x-ray was consistent with pulmonary fibrosis addition to patchy bilateral pulmonary infiltrates more so on the lung bases. The patient has chronic elevation of the right hemidiaphragm. Upon arrival, his alcohol level was quite elevated at 265. Subsequently, he was brought into the intensive care unit placed on a 50% Ventimask and the patient is having ongoing confusion and restlessness and agitation. There was obvious concern that the patient was going into delirium related to alcohol withdrawal and the patient was started on Precedex. Currently Precedex is running at 0.4 mcg/kg/m. His blood work shows a WBC count of 14.3 with a hemoglobin of 15 and a platelet count of 149. The blood gas showed a pH of 7.48 with a pCO2 of 35 and pO2 of 76 and this was identified to 50%. Sodium level is at 127. Lactic acid level is at 3.6. Troponins are 0.045. The patient is currently on IV fluids of normal saline at rate of 100 mL an hour. His LFTs are showing an AST of 175, AST of 322, and the initial troponin was at 0.045. Echocardiogram was in progress. Meanwhile, the patient was also covered with broad-spectrum antibiotics. The patient is currently on a combination of Rocephin and Zithromax. Mentation is altered. Neurologic exam is nonfocal. On 10/15/2023, the patient is being seen for a follow-up. Is currently on a 40% Ventimask. Breathing has improved and breathing is less labored compared to yesterday. In same time, the patient was invading tremens and the patient was treated with Precedex. This morning, Precedex is running at 0.8 microvascular kilogram per minutes. The patient is also on IV fluids with normal saline at rate of 75 mL an hour. He is responsive. Is, comfortable. Is able to follow simple commands and have regular conversation. No significant agitation. He reports that his breathing is improved. He remains on Rocephin and Zithromax. He remains on bronchodilators. In terms of his blood work, his sodium level is up to 129, BUN is 11 with a creatinine of 0.6 and a potassium level is at 3.6. The white cell cause of 9.2 with a hemoglobin of 12.9. His pro calcitonin level was at 0.05. No other significant events overnight. The triple-lumen catheter was removed as the catheter was noted to be in his neck. He has adequate IV access for now. He is also on Lovenox portably prophylaxis. Objective - Vital Signs Vital signs: Vital Signs Temp 97.1 F L 10/15/23 08:00 Pulse 89 10/15/23 08:00 Resp 23 10/15/23 08:00 BP 128/96 10/14/23 16:00 Pulse Ox 96 10/15/23 08:00 FiO2 50 10/15/23 04:00 Intake & Output 10/14/23 10/15/23 10/15/23 18:59 06:59 18:59 Intake Total 732.212 866.181 156 Output Total 1470 245 42 Balance -737.788 621.181 114 Weight 62.142 kg 60 kg Intake: IV 21 33 6 .9 pressure bag 21 33 6 Intake, IV Titration 711.212 833.181 150 Amount Azithromycin 500 mg In 250 Sodium Chloride 0.9% 250 ml @ 250 mls/hr IVPB DAILY ИРИНА Rx#:[id number] Dexmedetomidine/0.9% NaCl 11.212 58.181 (Pmx) 400 mcg In Empty Bag 1 bag @ 0.2 MCG/KG/HR 3.107 mls/hr IV .Q24H ИРИНА Rx#:[id number] Sodium Chloride 0.9% 1, 100 775 150 000 ml @ 75 mls/hr IV . [id number] ИРИНА Rx#:[id number] Sodium Chloride 0.9% 1, 300 000 ml @ 999 mls/hr IV . Q1H1M ONE Rx#:[id number] Thiamine 100 mg In Sodium 50 Chloride 0.9% 50 ml @ 100 mls/hr IVPB DAILY ИРИНА Rx#:[id number] Output: Urine 1470 245 42 Other: Voiding Method Indwelling Catheter Indwelling Catheter # Bowel Movements 1 2 ABP, PAP, CO, CI - Last Documented Arterial Blood Pressure 104/59 - Exam GENERAL EXAM: Alert, 63-year-old white male , no significant confusion or agitation at this point in time. . Is currently on a 40% Ventimask. HEAD: Normocephalic and atraumatic EYES: Normal reaction of pupils, equal size. NOSE: Clear with pink turbinates. THROAT: No erythema or exudates. NECK: No masses, no JVD. CHEST: No chest wall deformity. LUNGS: Equal air entry with posterior vocal crackles. No wheezes, rhonchi, focal dullness. Patient is tachypneic and has shortness of breath at rest. Coarse crackles in lung bases bilaterally. CVS: S1 and S2 normal with no audible murmur, regular rhythm. No extra heart sounds ABDOMEN: No hepatosplenomegaly, active bowel sounds, no guarding or rigidity. SPINE: No scoliosis or deformity SKIN: No rashes CENTRAL NERVOUS SYSTEM: No focal deficits, tone is normal in all 4 extremities. Much more alert and awake compared to yesterday. EXTREMITIES: There is no peripheral edema, clubbing, or cyanosis. Peripheral p ulses are intact. - Labs CBC & Chem 7: 10/15/23 04:10 10/15/23 04:10 Labs: Abnormal Lab Results - Last 24 Hours (Table) 10/14/23 10/14/23 10/14/23 Range/Units 03:32 03:32 03:58 WBC (3.8-10.6) k/uL RBC (4.30-5.90) m/uL Hgb (13.0-17.5) gm/dL Hct (39.0-53.0) % MCV (80.0-100.0) fL Plt Count (150-450) k/uL Neutrophils # (1.3-7.7) k/uL Lymphocytes # (1.0-4.8) k/uL ABG pH (7.35-7.45) ABG pO2 (83-108) mmHg ABG HCO3 (21-25) mmol/L ABG Total CO2 (19-24) mmol/L Sodium (137-145) mmol/L Chloride (98-107) mmol/L BUN (9-20) mg/dL Creatinine (0.66-1.25) mg/dL Glucose (74-99) mg/dL POC Glucose (mg/dL) (70-110) mg/dL Osmolality 328 A* (275-295) mOsm/kg Plasma Lactic Acid Cooper (0.7-2.0) mmol/L Calcium (8.4-10.2) mg/dL AST (17-59) U/L ALT (4-49) U/L Troponin I (0.000-0.034) ng/mL Urine Osmolality 197 L (400-1100) mOsm/kg Ur Random Sodium 38 L (40-220) mmol/L 10/14/23 10/14/23 10/14/23 Range/Units 09:52 09:52 10:15 WBC 14.3 H (3.8-10.6) k/uL RBC (4.30-5.90) m/uL Hgb (13.0-17.5) gm/dL Hct (39.0-53.0) % MCV 101.5 H (80.0-100.0) fL Plt Count 149 L (150-450) k/uL Neutrophils # 13.0 H (1.3-7.7) k/uL Lymphocytes # 0.5 L (1.0-4.8) k/uL ABG pH (7.35-7.45) ABG pO2 (83-108) mmHg ABG HCO3 (21-25) mmol/L ABG Total CO2 (19-24) mmol/L Sodium (137-145) mmol/L Chloride (98-107) mmol/L BUN (9-20) mg/dL Creatinine (0.66-1.25) mg/dL Glucose (74-99) mg/dL POC Glucose (mg/dL) 172 H (70-110) mg/dL Osmolality (275-295) mOsm/kg Plasma Lactic Acid Cooper (0.7-2.0) mmol/L Calcium (8.4-10.2) mg/dL AST (17-59) U/L ALT (4-49) U/L Troponin I 0.045 H* (0.000-0.034) ng/mL Urine Osmolality (400-1100) mOsm/kg Ur Random Sodium (40-220) mmol/L 10/14/23 10/14/23 10/14/23 Range/Units 10:57 10:57 10:57 WBC (3.8-10.6) k/uL RBC (4.30-5.90) m/uL Hgb (13.0-17.5) gm/dL Hct (39.0-53.0) % MCV (80.0-100.0) fL Plt Count (150-450) k/uL Neutrophils # (1.3-7.7) k/uL Lymphocytes # (1.0-4.8) k/uL ABG pH (7.35-7.45) ABG pO2 (83-108) mmHg ABG HCO3 (21-25) mmol/L ABG Total CO2 (19-24) mmol/L Sodium 127 L 127 L (137-145) mmol/L Chloride 93 L (98-107) mmol/L BUN 7 L (9-20) mg/dL Creatinine 0.56 L (0.66-1.25) mg/dL Glucose 135 H (74-99) mg/dL POC Glucose (mg/dL) (70-110) mg/dL Osmolality (275-295) mOsm/kg Plasma Lactic Acid Cooper 3.6 H* (0.7-2.0) mmol/L Calcium 7.8 L (8.4-10.2) mg/dL AST 154 H (17-59) U/L ALT 272 H (4-49) U/L Troponin I (0.000-0.034) ng/mL Urine Osmolality (400-1100) mOsm/kg Ur Random Sodium (40-220) mmol/L 10/14/23 10/14/23 10/14/23 Range/Units 11:56 16:10 20:19 WBC (3.8-10.6) k/uL RBC (4.30-5.90) m/uL Hgb (13.0-17.5) gm/dL Hct (39.0-53.0) % MCV (80.0-100.0) fL Plt Count (150-450) k/uL Neutrophils # (1.3-7.7) k/uL Lymphocytes # (1.0-4.8) k/uL ABG pH 7.48 H (7.35-7.45) ABG pO2 76 L (83-108) mmHg ABG HCO3 26 H (21-25) mmol/L ABG Total CO2 27 H (19-24) mmol/L Sodium 127 L 127 L (137-145) mmol/L Chloride (98-107) mmol/L BUN (9-20) mg/dL Creatinine (0.66-1.25) mg/dL Glucose (74-99) mg/dL POC Glucose (mg/dL) (70-110) mg/dL Osmolality (275-295) mOsm/kg Plasma Lactic Acid Cooper (0.7-2.0) mmol/L Calcium (8.4-10.2) mg/dL AST (17-59) U/L ALT (4-49) U/L Troponin I (0.000-0.034) ng/mL Urine Osmolality (400-1100) mOsm/kg Ur Random Sodium (40-220) mmol/L 10/15/23 10/15/23 Range/Units 04:10 04:10 WBC (3.8-10.6) k/uL RBC 3.72 L (4.30-5.90) m/uL Hgb 12.9 L (13.0-17.5) gm/dL Hct 37.5 L (39.0-53.0) % MCV 100.6 H (80.0-100.0) fL Plt Count (150-450) k/uL Neutrophils # (1.3-7.7) k/uL Lymphocytes # (1.0-4.8) k/uL ABG pH (7.35-7.45) ABG pO2 (83-108) mmHg ABG HCO3 (21-25) mmol/L ABG Total CO2 (19-24) mmol/L Sodium 129 L (137-145) mmol/L Chloride (98-107) mmol/L BUN (9-20) mg/dL Creatinine 0.60 L (0.66-1.25) mg/dL Glucose (74-99) mg/dL POC Glucose (mg/dL) (70-110) mg/dL Osmolality (275-295) mOsm/kg Plasma Lactic Acid Cooper (0.7-2.0) mmol/L Calcium 7.6 L (8.4-10.2) mg/dL AST (17-59) U/L ALT (4-49) U/L Troponin I (0.000-0.034) ng/mL Urine Osmolality (400-1100) mOsm/kg Ur Random Sodium (40-220) mmol/L Assessment and Plan Plan: Acute on chronic hypoxic respiratory failure currently on a 40% Ventimask production patient is somewhat improved compared to yesterday. The patient is also being treated for bilateral pneumonia in addition to his underlying pulmonary fibrosis. Pro-calcitonin level is low. Chronic hypoxic respiratory failure and the patient has limited on O2 at 3 L/m nasal cannula on outpatient basis, due to IPF and chronic elevation of the right hemidiaphragm/diaphragmatic paralysis and severe restrictive lung disease at baseline. IPF maintained on Ofev Altered mentation, secondary to delirium tremens. The patient is on Precedex and his mental status is gradually improving Alcohol intoxication, serum alcohol level 265 on arrival Alcoholism, patient reportedly drinks one/half fifth of a peppermint schnapps per day Hypochloremic hyponatremia, possibly related to above and poor oral intake, improving with normal saline infusion Mild transaminitis, probably related to alcoholism History of PEA cardiac arrest Chronic lower back pain History of anxiety/depression Troponin leak, likely type II ischemia Mild lactic acidosis Plan Keep the patient on oxygen and try nasal cannula possible Continue Precedex drip and gradually wean off the sedation The patient will be covered with a combination of antibiotics including Rocephin and Zithromax Viral panel is negative Check pro calcitonin level was low Continue IV fluids normal saline at rate of 75 mL an hour Sodium level is improving Seroquel 50 mg at bedtime Librium 25 mg every 4 hours on a when necessary basis in addition to Ativan her CIWA protocol Monitor lactic acid level, improving More stable compared to yesterday We'll continue to follow
--- NOTE | 2023-10-15 11:43 | P.PCN ---
Date of Procedure: 10/14/23 Preoperative Diagnosis: Acute hypoxic respiratory failure Postoperative Diagnosis: Same Procedure(s) Performed: Arterial line Anesthesia: local Surgeon: Ying Nugent Estimated Blood Loss (ml): 0 Pathology: other Condition: critical Disposition: ICU Operative Findings: Indication: Hemodynamic monitoring. A time-out was completed verifying correct patient, procedure, site, positioning, and implant(s) or special equipment if applicable. Allens test was performed to ensure adequate perfusion. The patients {left wrist was prepped and draped in sterile fashion. 1% Lidocaine was used to anesthetize the area. An 18G Arrow arterial line was introduced into the left radial artery. The catheter was threaded over the guide wire and the needle was removed with appropriate pulsatile blood return. Blood loss was minimal. The catheter was then sutured in place to the skin and a sterile dressing applied. Perfusion to the extremity distal to the point of catheter insertion was checked and found to be adequate. The patient tolerated the procedure well and there were no complications.
--- NOTE | 2023-10-15 17:13 | CA ---
Transthoracic Echo Report Name: Dorian Webb Age: 63 Gender: M : 1960 Exam Date: 10/14/2023 13:49 Exam Location: [facility] Ht (in): 68 Wt (lb): 137 Ordering Physician: Shyann Arredondo MD Attending/Referring Phys: [employer] Zeynep Barger RDCS Procedure CPT: Indications: NICM - dilated cardiomyopathy suspected Cardiac Hx: Technical Quality: Fair Contrast 1: Total Dose (mL): Contrast 2: Total Dose (mL): MEASUREMENTS (Male / Female) Normal Values 2D ECHO LV Diastolic Diameter PLAX 3.7 cm 4.2 - 5.9 / 3.9 - 5.3 cm LV Systolic Diameter PLAX 2.5 cm IVS Diastolic Thickness 1.0 cm 0.6 - 1.0 / 0.6 - 0.9 cm LVPW Diastolic Thickness 1.1 cm 0.6 - 1.0 / 0.6 - 0.9 cm LV Relative Wall Thickness 0.6 RV Internal Dim ED PLAX 3.2 cm LVOT Diameter 2.3 cm Aortic Root Diameter 3.2 cm LA Systolic Diameter LX 1.9 cm 3.0 - 4.0 / 2.7 - 3.8 cm LV Diastolic Volume MOD BP 47.7 cm??? 67 - 155 / 56 - 104 cm??? LV Systolic Volume MOD BP 23.8 cm??? 22 - 58 / 19 - 49 cm??? LV Ejection Fraction MOD BP 50.2 % >= 55 % LV Cardiac Index MOD BP 1666.1 cm???/min???m??? LV Diastolic Volume MOD 4C 47.8 cm??? LV Systolic Volume MOD 4C 17.0 cm??? LV Ejection Fraction MOD 4C 64.4 % LV Cardiac Index MOD 4C 2146.4 cm???/min???m??? LV Diastolic Length 4C 6.7 cm LV Systolic Length 4C 5.8 cm LV Diastolic Volume MOD 2C 44.5 cm??? LV Systolic Volume MOD 2C 32.6 cm??? LV Ejection Fraction MOD 2C 26.9 % LV Cardiac Index MOD 2C 833.9 cm???/min???m??? LV Diastolic Length 2C 6.2 cm LV Systolic Length 2C 5.7 cm Ascending Aorta Diameter 3.0 cm DOPPLER LVOT Peak Velocity 85.1 cm/s LVOT Peak Gradient 2.9 mmHg LVOT Velocity Time Integral 13.8 cm LVOT Stroke Volume 56.1 cm??? LVOT Stroke Volume Index 32.2 ml/m??? LVOT Cardiac Index 3903.6 cm???/min???m??? MV Peak Velocity 110.1 cm/s MV Peak Gradient 4.9 mmHg MV Mean Velocity 55.1 cm/s MV Mean Gradient 1.5 mmHg MV Velocity Time Integral 16.1 cm Mitral E Point Velocity 91.2 cm/s Mitral A Point Velocity 85.8 cm/s Mitral E to A Ratio 1.1 MV Deceleration Time 111.5 ms TR Peak Velocity 413.1 cm/s TR Peak Gradient 68.3 mmHg Right Ventricular Systolic Press 78.3 mmHg PV Peak Velocity 72.8 cm/s PV Peak Gradient 2.1 mmHg FINDINGS Left Ventricle Normal LV size and wall thickness. Left ventricular ejection fraction is estimated at 55-60 %. Septal shudder noticed and D-shaped septum just above RV pressure overload. Right Ventricle Severe RV dilatation. RVSP estimated at more than 60 mmHg. Signs of RV volume and pressure overload Right Atrium Mild right atrial dilatation Left Atrium Normal left atrial size. Mitral Valve No significant mitral regurgitation or stenosis. Aortic Valve Trileaflet aortic valve. No aortic stenosis. No aortic regurgitation. Tricuspid Valve Structurally normal tricuspid valve. Severe TR. Pulmonic Valve Pulmonic valve not well visualized. No pulmonic regurgitation. Pericardium Not well visualized. Aorta Normal size aortic root and proximal ascending aorta. CONCLUSIONS Normal LV size and systolic function. LVEF 55% No obvious regional wall motion abnormality Severe RV dilatation. Signs of RV volume and pressure overload. RVSP estimated more than 60 mmHg Mild RV dilatation Severe TR No significant aortic or mitral disease No pericardial effusion Previewed by: Dr Femi Arambula (Electronically Signed) Final Date: 15 October 2023 17:12
--- NOTE | 2023-10-15 17:15 | P.PN ---
Subjective Progress Note Date: 10/15/23 Progress note 10/15/2023 Patient is resting in the bed. Currently in sinus tachycardia. No concerns of any arrhythmia over last 24 hours on telemetry monitoring. Patient denies any chest pain chest pressure. HISTORY OF PRESENTING ILLNESS Patient has past medical history of idiopathic pulmonary fibrosis on Ofev, with significant obstructive lung disease with FVC of 45%. He is on chronic 3 L oxygen at home. He drinks a fifth of alcohol and 7 beers almost every day. This time he presented to the hospital because of worsening shortness of breath increased cough and congestion. There was no reported episodes of chest pain chest pressure palpitations lightheadedness or dizziness. Recent chest x-ray shows findings of chronic pulmonary fibrosis along with bilateral lower lobe infiltrates suggestive of possible pneumonia. He had significantly elevated alcohol levels on admission of 265. He also had hyperosmolar hyponatremia and elevated lactate. His initial troponin was negative and therapy troponin was 0.604. His BNP was elevated at 4000 next ECG shows sinus tachycardia with T-wave inversions in lead III. BP 128/96, pulse 109, sinus tachycardia REVIEW OF SYSTEMS 14 point review of system is negative except what is mentioned above in HPI. PHYSICAL EXAMINATION Head: Normocephalic. Eyes: Sclerae nonicteric. Neck: Brisk carotid upstroke, no jugular venous distention. Lungs: Diffuse crackles audible in bilateral lung urbano with reduced air entry in bilateral lower lung urbaon Cardiac: Regular rhythm, S1-S2, no S3, no murmur or rub. Abdomen: Soft nontender, positive bowel sounds no organomegaly. Extremities: No edema, intact distal pulses. Neuro: On Precedex drip, going through alcohol withdrawal. Detailed exam was not performed. ASSESSMENT Mild elevation of troponin likely due to hypoxia. Severe pulmonary hypertension, likely due to from IPF Severe RV dilatation Elevated BNP 4000. Appears euvolemic on clinical exam Acute on chronic hypoxic respiratory failure Possible comminuted acquired pneumonia Advanced pulmonary fibrosis with restrictive lung disease with FEV1 of 45% Hyperosmolar state, due to alcohol Hyperosmolar hyponatremia Alcohol intoxication, currently going through alcohol withdrawal PLAN Severe pulmonary hypertension, severe RV dilatation with RV volume and pressure overload suggestive of obstructive pulmonary hypertension in setting of IPF May benefit from an outpatient right heart catheterization and possible referral to advanced center to get evaluated for pulmonary hypertension and IPF treatment as outpatient Patient has not yet started to develop RV failure but considering patient's severe TR, he is nearing it. Continue supportive management as per primary team and pulmonary team Sinus tachycardia is physiological. Do not give beta eda Objective - Vital Signs Vital signs: Vital Signs Temp 98.2 F 10/15/23 16:00 Pulse 111 H 10/15/23 17:00 Resp 31 H 10/15/23 17:00 BP 128/96 10/14/23 16:00 Pulse Ox 96 10/15/23 17:00 FiO2 50 10/15/23 04:00 Intake & Output 10/14/23 10/15/23 10/15/23 18:59 06:59 18:59 Intake Total 732.212 866.181 770.824 Output Total 9445 424 4519 Balance -737.788 621.181 -874.176 Weight 62.142 kg 60 kg 60 kg Intake: IV 21 33 30 .9 pressure bag 21 33 30 Intake, IV Titration 711.212 833.181 740.824 Amount Azithromycin 500 mg In 250 Sodium Chloride 0.9% 250 ml @ 250 mls/hr IVPB DAILY ИРИНА Rx#:[id number] Dexmedetomidine/0.9% NaCl 11.212 58.181 65.824 (Pmx) 400 mcg In Empty Bag 1 bag @ 0.2 MCG/KG/HR 3.107 mls/hr IV .Q24H ИРИНА Rx#:[id number] Sodium Chloride 0.9% 1, 100 775 675 000 ml @ 75 mls/hr IV . [id number] ИРИНА Rx#:[id number] Sodium Chloride 0.9% 1, 300 000 ml @ 999 mls/hr IV . Q1H1M ONE Rx#:[id number] Thiamine 100 mg In Sodium 50 Chloride 0.9% 50 ml @ 100 mls/hr IVPB DAILY ИРИНА Rx#:[id number] Output: Urine 1377 [id number] [id number] Other: Voiding Method Indwelling Catheter Indwelling Catheter Indwelling Catheter # Bowel Movements 1 2 1 ABP, PAP, CO, CI - Last Documented Arterial Blood Pressure 118/61 - Labs CBC & Chem 7: 10/15/23 04:10 10/15/23 04:10 Labs: Abnormal Lab Results - Last 24 Hours (Table) 10/14/23 10/14/23 10/15/23 Range/Units 10:57 20:19 04:10 RBC 3.72 L (4.30-5.90) m/uL Hgb 12.9 L (13.0-17.5) gm/dL Hct 37.5 L (39.0-53.0) % MCV 100.6 H (80.0-100.0) fL Sodium 127 L 127 L (137-145) mmol/L Chloride 93 L (98-107) mmol/L BUN 7 L (9-20) mg/dL Creatinine 0.56 L (0.66-1.25) mg/dL Glucose 135 H (74-99) mg/dL Calcium 7.8 L (8.4-10.2) mg/dL AST 154 H (17-59) U/L ALT 272 H (4-49) U/L 10/15/23 Range/Units 04:10 RBC (4.30-5.90) m/uL Hgb (13.0-17.5) gm/dL Hct (39.0-53.0) % MCV (80.0-100.0) fL Sodium 129 L (137-145) mmol/L Chloride (98-107) mmol/L BUN (9-20) mg/dL Creatinine 0.60 L (0.66-1.25) mg/dL Glucose (74-99) mg/dL Calcium 7.6 L (8.4-10.2) mg/dL AST (17-59) U/L ALT (4-49) U/L Microbiology - Last 24 Hours (Table) 10/14/23 02:00 Blood Culture - Preliminary Blood 10/14/23 02:15 Blood Culture - Preliminary Blood
[2023-10-15] MEDS: POTASSIUM BICARBONATE/CIT AC 20 MEQ TABLET.EFF NG-TUBE SCH ×2 (20:13→21:20)
[2023-10-15] MEDS: QUEtiapine 50 MG TAB PO SCH (21:20)
[2023-10-16] MEDS: DEXMEDETOMIDINE/0.9% NACL(PMX) 400 MCG in EMPTY BAG 1 BAG IV SCH ×2 (02:34→14:59)
[2023-10-16] MEDS: LORazepam 2 MG/ML INJ IV PRN ×4 (03:18→20:45)
[2023-10-16 05:02] LABS: African American GFR (CKD) >90 (>60 ml/min/1.73 sqM); Anion Gap 6 mmol/L; Blood Urea Nitrogen 14 mg/dL (9-20); Calcium 7.3 mg/dL (8.4-10.2); Carbon Dioxide 24 mmol/L (22-30); Chloride 104 mmol/L (98-107); Glucose 95 mg/dL (74-99); Non-African American GFR(CKD) >90 (>60 ml/min/1.73 sqM); Potassium 3.6 mmol/L (3.5-5.1); Sodium 134 mmol/L (137-145)
[2023-10-16 05:11] LABS: Basophils % (A) 0 %; Eosinophils # (A) 0.2 k/uL (0-0.7); Eosinophils % (A) 3 %; HCT 34.5 % (39.0-53.0); HGB 11.7 gm/dL (13.0-17.5); Lymphocytes # (A) 1.7 k/uL (1.0-4.8); Lymphocytes % (A) 20 %; MCH 34.5 pg (25.0-35.0); MCHC 33.8 g/dL (31.0-37.0); Macrocytosis Slight; Mean Platelet Volume 9.4; Monocytes # (A) 0.4 k/uL (0-1.0); Monocytes % (A) 4 %; Neutrophils % (A) 71 %; Platelet Count 142 k/uL (150-450); RBC 3.38 m/uL (4.30-5.90); RDW 15.6 % (11.5-15.5); WBC 8.5 k/uL (3.8-10.6)
[2023-10-16] MEDS ORDERED: POTASSIUM BICARBONATE/CIT AC 20 MEQ TABLET.EFF NG-TUBE SCH (06:00)
[2023-10-16] MEDS: MORPHINE SULFATE 4 MG/ML SYRINGE IVP PRN (07:31)
[2023-10-16] MEDS: ALBUTEROL NEBULIZED 2.5 MG/3 ML INHALATION SCH ×3 (07:38→19:49)
[2023-10-16] MEDS: MULTIVITAMINS, THERA 1 EACH TAB PO SCH (08:12)
[2023-10-16] MEDS: CITALOPRAM HYDROBROMIDE 20 MG TAB PO SCH (08:12)
[2023-10-16] MEDS: FOLIC ACID 1 MG TAB PO SCH (08:12)
[2023-10-16] MEDS: ENOXAPARIN 40 MG/0.4 ML SYRINGE SQ SCH (08:12)
[2023-10-16] MEDS: chlordiazePOXIDE 25 MG CAP PO SCH ×3 (08:12→21:05)
[2023-10-16] MEDS: THIAMINE 100 MG in SODIUM CHLORIDE 0.9% 50 ML IVPB SCH (08:28)
[2023-10-16] MEDS: AZITHROMYCIN 500 MG in SODIUM CHLORIDE 0.9% 250 ML IVPB SCH (08:29)
--- NOTE | 2023-10-16 09:29 | P.PN ---
Subjective Progress Note Date: 10/16/23 No new complaints. Pts oxygen requirement improved. Pt has 0.2 precedex requirement - improved. Gen: In NAD, non-toxic HEENT: normocephalic, atraumatic, hearing acuity is intant, mucous membranes moist CVS: perfusing all extremities well, no pitting edema, Respiratory: symmetric chest expansion, no accessory muscle use, GI: soft, NTTP, ND, : no suprapubic tenderness, no CVA tenderness MSK/Derm: no rashes, cyanosis Neuro: CN II-XII intact, no motor weakness, Psych: cooperative, euthymic mood, judgment and insight is intact Hospital course: Patient is a 63-year-old male with a PMH of EtOH abuse with history of DTs, idiopathic pulmonary fibrosis on 2 L nasal cannula oxygen at home, and chronic lower back pain who presented to the emergency room for alcohol intoxication, accompanied by his . Chest x-ray in the emergency room revealed findings consistent with multi lobar pneumonia. EKG reveals sinus tachycardia 108 bpm with T-wave inversion in leads V2 and V3 as well as in leads 3 and aVF. Laboratory evaluation revealed a platelet count of 143, sodium 121, chloride 90, CO2 21, lactic acid 2.7, serum alcohol level 265, viral respiratory panel unremarkable, troponin 0.017, and proBNP 4019 with AST 222 and ALT 331. Assessment/plan: Alcohol dependence with alcohol withdrawal syndrome Transaminitis, likely due to EtOH abuse Thrombocythemia, likely due to alcohol abuse -Continue ICU care, pt has A-line, central line -Continue Precedex, wean as tolerated -Continue Librium 25 mg 3 times daily scheduled -Thiamine, folic acid, multivitamin -CIWA protocol, Ativan as needed Acute on chronic hypoxemic respiratory failure Chronic interstitial pulmonary fibrosis Aspiration pneumonia Lactic acidosis -Continue ceftriaxone, azithromycin -Continue oxygen as needed -Lactic acidosis has resolved -Cardiology consulted, echocardiogram ordered, shows preserved EF, significant pHTN with severe TR Hypochloremic hyponatremia, -Nephrology consulted for fluid management, sodium improving to 134 DVT prophylaxis: Lovenox subcu The patient is admitted with an anticipated greater than 2 midnight stay for evaluation of EtOh abuse CODE STATUS: Full Code Discussed with: Patient, Anticipated discharge place: Home Objective - Vital Signs Vital signs: Vital Signs Temp 97.7 F 10/16/23 08:00 Pulse 95 10/16/23 08:00 Resp 28 H 10/16/23 08:00 BP 142/100 10/16/23 08:00 Pulse Ox 92 L 10/16/23 08:00 FiO2 50 10/15/23 04:00 Intake & Output 10/15/23 10/16/23 10/16/23 18:59 06:59 18:59 Intake Total 326.436 0950.111 166.435 Output Total 1685 282 87 Balance -733.527 787.111 79.435 Weight 60 kg 59.9 kg Intake: IV 36 36 6 .9 pressure bag 36 36 6 Intake, IV Titration 523.504 4044.111 160.435 Amount Dexmedetomidine/0.9% NaCl 90.473 133.111 10.435 (Pmx) 400 mcg In Empty Bag 1 bag @ 0.2 MCG/KG/HR 3.107 mls/hr IV .Q24H ИРИНА Rx#:[id number] Sodium Chloride 0.9% 1, 825 900 150 000 ml @ 75 mls/hr IV . [id number] ИРИНА Rx#:[id number] Output: Urine 1685 282 87 Other: Voiding Method Indwelling Catheter Indwelling Catheter Indwelling Catheter # Bowel Movements 1 ABP, PAP, CO, CI - Last Documented Arterial Blood Pressure 131/69 - Labs CBC & Chem 7: 10/16/23 04:46 10/16/23 08:17 Labs: Abnormal Lab Results - Last 24 Hours (Table) 10/15/23 10/16/23 10/16/23 Range/Units 16:43 04:46 04:46 RBC 3.38 L (4.30-5.90) m/uL Hgb 11.7 L (13.0-17.5) gm/dL Hct 34.5 L (39.0-53.0) % MCV 102.0 H (80.0-100.0) fL RDW 15.6 H (11.5-15.5) % Plt Count 142 L (150-450) k/uL Sodium 134 L (137-145) mmol/L Potassium 3.3 L (3.5-5.1) mmol/L Creatinine 0.60 L (0.66-1.25) mg/dL Calcium 7.3 L (8.4-10.2) mg/dL Microbiology - Last 24 Hours (Table) 10/14/23 02:00 Blood Culture - Preliminary Blood 10/14/23 02:15 Blood Culture - Preliminary Blood
--- NOTE | 2023-10-16 10:00 | P.PN ---
Subjective Patient is seen in follow-up for hyponatremia. Sodium level 134 this morning. GFR at baseline. Receiving normal saline. Oral intake is improving. Received 1 dose of IV Lasix yesterday. Vital signs are stable. General: Resting in bed. Awake. HEENT: Head exam is unremarkable. On nasal cannula. LUNGS: Scattered rhonchi. HEART: Rate and Rhythm are regular. ABDOMEN: No distention. EXTREMITITES: No edema. Objective - Vital Signs Vital signs: Vital Signs Temp 97.7 F 10/16/23 08:00 Pulse 95 10/16/23 08:00 Resp 28 H 10/16/23 08:00 BP 142/100 10/16/23 08:00 Pulse Ox 92 L 10/16/23 08:00 FiO2 50 10/15/23 04:00 Intake & Output 10/15/23 10/16/23 10/16/23 18:59 06:59 18:59 Intake Total 972.321 3549.111 166.435 Output Total 1685 282 87 Balance -733.527 787.111 79.435 Weight 60 kg 59.9 kg Intake: IV 36 36 6 .9 pressure bag 36 36 6 Intake, IV Titration 559.915 0576.111 160.435 Amount Dexmedetomidine/0.9% NaCl 90.473 133.111 10.435 (Pmx) 400 mcg In Empty Bag 1 bag @ 0.2 MCG/KG/HR 3.107 mls/hr IV .Q24H ИРИНА Rx#:[id number] Sodium Chloride 0.9% 1, 825 900 150 000 ml @ 75 mls/hr IV . [id number] ИРИНА Rx#:[id number] Output: Urine 1685 282 87 Other: Voiding Method Indwelling Catheter Indwelling Catheter Indwelling Catheter # Bowel Movements 1 ABP, PAP, CO, CI - Last Documented Arterial Blood Pressure 131/69 - Labs CBC & Chem 7: 10/16/23 04:46 10/16/23 08:17 Labs: Abnormal Lab Results - Last 24 Hours (Table) 10/15/23 10/16/23 10/16/23 Range/Units 16:43 04:46 04:46 RBC 3.38 L (4.30-5.90) m/uL Hgb 11.7 L (13.0-17.5) gm/dL Hct 34.5 L (39.0-53.0) % MCV 102.0 H (80.0-100.0) fL RDW 15.6 H (11.5-15.5) % Plt Count 142 L (150-450) k/uL Sodium 134 L (137-145) mmol/L Potassium 3.3 L (3.5-5.1) mmol/L Creatinine 0.60 L (0.66-1.25) mg/dL Calcium 7.3 L (8.4-10.2) mg/dL Microbiology - Last 24 Hours (Table) 10/14/23 02:00 Blood Culture - Preliminary Blood 10/14/23 02:15 Blood Culture - Preliminary Blood Assessment and Plan Plan: Assessment: 1. Hypovolemic hyponatremia improved with IV fluids. Sodium level 121 on admission and up to 134 this morning. Urine sodium 38 and urine osmolality 197. TSH normal. 2. Alcohol abuse. 3. Acute hypoxic respiratory failure. 4. Pneumonia on antibiotics. 5. Hypokalemia from poor intake. Replaced. Improved. 6. Chronic diastolic CHF with severe tricuspid regurgitation and pulmonary hypertension. Plan: Maintain normal saline - decrease rate to 50 cc/hr. Encouraged oral intake. Maintain 1200 mL fluid restriction. Continue to monitor renal function and urine output. Will repeat Lasix if urine output drops.
[2023-10-16] MEDS: busPIRone HCl 5 MG TAB PO SCH ×2 (11:32→21:05)
--- NOTE | 2023-10-16 12:10 | P.PN ---
Subjective Progress Note Date: 10/16/23 This is a 63-year-old male patient with advanced pulmonary fibrosis. The patient has IPF and currently is on Ofev and he has significant restrictive lung disease in FVC of 45% of predicted. Is also oxygen dependent and utilizes 3 L of O2 nasal cannula. The patient also has history of excessive alcohol consumption. He drinks alcohol excessively around 7 beers a day and he also drinks a fifth of peppermint schnapps every day. The patient presented to the hospital because of worsening shortness of breath, increased cough and congestion. No reported fever. No reported chest pain. In the emergency department, the chest x-ray was consistent with pulmonary fibrosis addition to patchy bilateral pulmonary infiltrates more so on the lung bases. The patient has chronic elevation of the right hemidiaphragm. Upon arrival, his alcohol level was quite elevated at 265. Subsequently, he was brought into the intensive care unit placed on a 50% Ventimask and the patient is having ongoing confusion and restlessness and agitation. There was obvious concern that the patient was going into delirium related to alcohol withdrawal and the patient was started on Precedex. Currently Precedex is running at 0.4 mcg/kg/m. His blood work shows a WBC count of 14.3 with a hemoglobin of 15 and a platelet count of 149. The blood gas showed a pH of 7.48 with a pCO2 of 35 and pO2 of 76 and this was identified to 50%. Sodium level is at 127. Lactic acid level is at 3.6. Troponins are 0.045. The patient is currently on IV fluids of normal saline at rate of 100 mL an hour. His LFTs are showing an AST of 175, AST of 322, and the initial troponin was at 0.045. Echocardiogram was in progress. Meanwhile, the patient was also covered with broad-spectrum antibiotics. The patient is currently on a combination of Rocephin and Zithromax. Mentation is altered. Neurologic exam is nonfocal. On 10/15/2023, the patient is being seen for a follow-up. Is currently on a 40% Ventimask. Breathing has improved and breathing is less labored compared to yesterday. In same time, the patient was invading tremens and the patient was treated with Precedex. This morning, Precedex is running at 0.8 microvascular kilogram per minutes. The patient is also on IV fluids with normal saline at rate of 75 mL an hour. He is responsive. Is, comfortable. Is able to follow simple commands and have regular conversation. No significant agitation. He reports that his breathing is improved. He remains on Rocephin and Zithromax. He remains on bronchodilators. In terms of his blood work, his sodium level is up to 129, BUN is 11 with a creatinine of 0.6 and a potassium level is at 3.6. The white cell cause of 9.2 with a hemoglobin of 12.9. His pro calcitonin level was at 0.05. No other significant events overnight. The triple-lumen catheter was removed as the catheter was noted to be in his neck. He has adequate IV access for now. He is also on Lovenox portably prophylaxis. 10/16/2023, the patient is on 2 L of oxygen by nasal cannula. Doing well. Communicating. No measures to distress at rest. Is known to have advanced IPF and has chronic hypoxic respiratory failure. Oxygen is improved and the patient is back to his 2 L of O2 nasal cannula. At the same time, his being treated for delirium tremens secondary to alcohol withdrawal. Precedex was being titrated and the patient is currently on 0.2 mcg/kg/h. He has arousable. Is following simple commands. He is lethargic yet he seems to be appropriate is aware that he is in the hospital. He is aware of the date and time. echoes of 8.5, hemoglobin 11.7, platelets of 142, BUN is at 40 with a creatinine of 0.6 and a sodium level is at 134. Potassium level has been replaced and it's up to 4.0. Remains on Rocephin. Completed course of Zithromax. Remains on Lovenox for DVT prophylaxis. Is taking Seroquel 50 mg at bedtime. He remains on thiamine. IV fluids are at the rate of 50 mL an hour of normal saline. Objective - Vital Signs Vital signs: Vital Signs Temp 97.7 F 10/16/23 08:00 Pulse 95 10/16/23 08:00 Resp 28 H 10/16/23 08:00 BP 142/100 10/16/23 08:00 Pulse Ox 92 L 10/16/23 08:00 FiO2 50 10/15/23 04:00 Intake & Output 10/15/23 10/16/23 10/16/23 18:59 06:59 18:59 Intake Total 991.501 7183.111 166.435 Output Total 1685 282 87 Balance -733.527 787.111 79.435 Weight 60 kg 59.9 kg Intake: IV 36 36 6 .9 pressure bag 36 36 6 Intake, IV Titration 849.696 3403.111 160.435 Amount Dexmedetomidine/0.9% NaCl 90.473 133.111 10.435 (Pmx) 400 mcg In Empty Bag 1 bag @ 0.2 MCG/KG/HR 3.107 mls/hr IV .Q24H ИРИНА Rx#:[id number] Sodium Chloride 0.9% 1, 825 900 150 000 ml @ 75 mls/hr IV . [id number] ИРИНА Rx#:[id number] Output: Urine 1685 282 87 Other: Voiding Method Indwelling Catheter Indwelling Catheter Indwelling Catheter # Bowel Movements 1 ABP, PAP, CO, CI - Last Documented Arterial Blood Pressure 131/69 - Exam GENERAL EXAM: Alert, 63-year-old white male , no significant confusion or agitation at this point in time. . Is currently on 2 L of O2 nasal cannula HEAD: Normocephalic and atraumatic EYES: Normal reaction of pupils, equal size. NOSE: Clear with pink turbinates. THROAT: No erythema or exudates. NECK: No masses, no JVD. CHEST: No chest wall deformity. LUNGS: Equal air entry with posterior vocal crackles. No wheezes, rhonchi, focal dullness. Patient is tachypneic and has shortness of breath at rest. Coarse crackles in lung bases bilaterally. CVS: S1 and S2 normal with no audible murmur, regular rhythm. No extra heart sounds ABDOMEN: No hepatosplenomegaly, active bowel sounds, no guarding or rigidity. SPINE: No scoliosis or deformity SKIN: No rashes CENTRAL NERVOUS SYSTEM: No focal deficits, tone is normal in all 4 extremities. Much more alert and awake compared to yesterday. EXTREMITIES: There is no peripheral edema, clubbing, or cyanosis. Peripheral pulses are intact. - Labs CBC & Chem 7: 10/16/23 04:46 10/16/23 08:17 Labs: Abnormal Lab Results - Last 24 Hours (Table) 10/15/23 10/16/23 10/16/23 Range/Units 16:43 04:46 04:46 RBC 3.38 L (4.30-5.90) m/uL Hgb 11.7 L (13.0-17.5) gm/dL Hct 34.5 L (39.0-53.0) % MCV 102.0 H (80.0-100.0) fL RDW 15.6 H (11.5-15.5) % Plt Count 142 L (150-450) k/uL Sodium 134 L (137-145) mmol/L Potassium 3.3 L (3.5-5.1) mmol/L Creatinine 0.60 L (0.66-1.25) mg/dL Calcium 7.3 L (8.4-10.2) mg/dL Microbiology - Last 24 Hours (Table) 10/14/23 02:00 Blood Culture - Preliminary Blood 10/14/23 02:15 Blood Culture - Preliminary Blood Assessment and Plan Plan: Acute on chronic hypoxic respiratory failure currently on a 2 L of oxygen by nasal cannula. Is known to have chronic pulmonary fibrosis/IPF and acute hypoxic respiratory failure on top of chronic respiratory diseases improved and the patient's oxygenation is improving currently back to 2 L. Chronic hypoxic respiratory failure and the patient has limited on O2 at 3 L/m nasal cannula on outpatient basis, due to IPF and chronic elevation of the right hemidiaphragm/diaphragmatic paralysis and severe restrictive lung disease at baseline. IPF maintained on Ofev Altered mentation, secondary to delirium tremens. The patient is on Precedex and his mental status is gradually improving Alcohol intoxication, serum alcohol level 265 on arrival Alcoholism, patient reportedly drinks one/half fifth of a peppermint schnapps per day Hypochloremic hyponatremia, possibly related to above and poor oral intake, improving with normal saline infusion Mild transaminitis, probably related to alcoholism History of PEA cardiac arrest Chronic lower back pain History of anxiety/depression Troponin leak, likely type II ischemia Mild lactic acidosis Plan Keep the patient on oxygen at 2 L nasal cannula Continue Precedex drip and gradually wean off the sedation, currently on 0.0 microvascular kilogram per hour The patient will be covered with a combination of antibiotics including Rocephin and completed course of Zithromax Viral panel is negative Check pro calcitonin level was low Continue IV fluids normal saline at rate of 50 mL an hour Sodium level is improving Seroquel 50 mg at bedtime Librium 25 mg every 4 hours on a when necessary basis in addition to Ativan her CIWA protocol Monitor lactic acid level, improving More stable compared to yesterday We'll continue to follow
--- NOTE | 2023-10-16 13:21 | P.PN ---
Subjective Progress Note Date: 10/16/23 Progress note 10/16/23 Patient is resting in the bed. Currently in sinus tachycardia. No other concerns of arrhythmia like atrial fibrillation at this time on telemetry. No chest pain shortness of breath. Otherwise comfortable, hemodynamic stable 10/15/2023 Patient is resting in the bed. Currently in sinus tachycardia. No concerns of any arrhythmia over last 24 hours on telemetry monitoring. Patient denies any chest pain chest pressure. HISTORY OF PRESENTING ILLNESS Patient has past medical history of idiopathic pulmonary fibrosis on Ofev, with significant obstructive lung disease with FVC of 45%. He is on chronic 3 L oxygen at home. He drinks a fifth of alcohol and 7 beers almost every day. This time he presented to the hospital because of worsening shortness of breath increased cough and congestion. There was no reported episodes of chest pain chest pressure palpitations lightheadedness or dizziness. Recent chest x-ray shows findings of chronic pulmonary fibrosis along with bilateral lower lobe infiltrates suggestive of possible pneumonia. He had significantly elevated alcohol levels on admission of 265. He also had hypero smolar hyponatremia and elevated lactate. His initial troponin was negative and therapy troponin was 0.604. His BNP was elevated at 4000 next ECG shows sinus tachycardia with T-wave inversions in lead III. BP 128/96, pulse 109, sinus tachycardia REVIEW OF SYSTEMS 14 point review of system is negative except what is mentioned above in HPI. PHYSICAL EXAMINATION Head: Normocephalic. Eyes: Sclerae nonicteric. Neck: Brisk carotid upstroke, no jugular venous distention. Lungs: Diffuse crackles audible in bilateral lung urbano with reduced air entry in bilateral lower lung urbano Cardiac: Regular rhythm, S1-S2, no S3, no murmur or rub. Abdomen: Soft nontender, positive bowel sounds no organomegaly. Extremities: No edema, intact distal pulses. Neuro: On Precedex drip, going through alcohol withdrawal. Detailed exam was not performed. ASSESSMENT Mild elevation of troponin likely due to hypoxia. Severe pulmonary hypertension, likely due to from IPF Severe RV dilatation Elevated BNP 4000. Appears euvolemic on clinical exam Acute on chronic hypoxic respiratory failure Possible comminuted acquired pneumonia Advanced pulmonary fibrosis with restrictive lung disease with FEV1 of 45% Hyperosmolar state, due to alcohol Hyperosmolar hyponatremia Alcohol intoxication, currently going through alcohol withdrawal PLAN Severe pulmonary hypertension, severe RV dilatation with RV volume and pressure overload suggestive of obstructive pulmonary hypertension in setting of IPF May benefit from an outpatient right heart catheterization and possible referral to advanced center to get evaluated for pulmonary hypertension and IPF treatment as outpatient Patient has not yet started to develop RV failure but considering patient's severe TR, he is nearing it. Continue supportive management as per primary team and pulmonary team Sinus tachycardia is physiological. Do not give beta eda Objective - Vital Signs Vital signs: Vital Signs Temp 98.3 F 10/16/23 12:00 Pulse 98 10/16/23 12:00 Resp 30 H 10/16/23 12:00 BP 142/100 10/16/23 08:00 Pulse Ox 94 L 10/16/23 12:00 FiO2 50 10/15/23 04:00 Intake & Output 10/15/23 10/16/23 10/16/23 18:59 06:59 18:59 Intake Total 995.128 0896.111 420.808 Output Total 1685 282 432 Balance -733.527 787.111 -11.192 Weight 60 kg 59.9 kg Intake: IV 36 36 18 .9 pressure bag 36 36 18 Intake, IV Titration 387.542 7422.111 402.808 Amount Dexmedetomidine/0.9% NaCl 90.473 133.111 27.808 (Pmx) 400 mcg In Empty Bag 1 bag @ 0.2 MCG/KG/HR 3.107 mls/hr IV .Q24H [facility] Rx#:[id number] Sodium Chloride 0.9% 1, 825 900 375 000 ml @ 50 mls/hr IV . Q20H [facility] Rx#:[id number] Output: Urine 1685 282 432 Other: Voiding Method Indwelling Catheter Indwelling Catheter Indwelling Catheter # Bowel Movements 1 ABP, PAP, CO, CI - Last Documented Arterial Blood Pressure 150/78 - Labs CBC & Chem 7: 10/16/23 04:46 10/16/23 08:17 Labs: Abnormal Lab Results - Last 24 Hours (Table) 10/15/23 10/16/23 10/16/23 Range/Units 16:43 04:46 04:46 RBC 3.38 L (4.30-5.90) m/uL Hgb 11.7 L (13.0-17.5) gm/dL Hct 34.5 L (39.0-53.0) % MCV 102.0 H (80.0-100.0) fL RDW 15.6 H (11.5-15.5) % Plt Count 142 L (150-450) k/uL Sodium 134 L (137-145) mmol/L Potassium 3.3 L (3.5-5.1) mmol/L Creatinine 0.60 L (0.66-1.25) mg/dL Calcium 7.3 L (8.4-10.2) mg/dL Microbiology - Last 24 Hours (Table) 10/14/23 02:00 Blood Culture - Preliminary Blood 10/14/23 02:15 Blood Culture - Preliminary Blood
[2023-10-16] MEDS: SODIUM CHLORIDE 0.9% 1,000 ML IV SCH (15:00)
[2023-10-16] MEDS: QUEtiapine 50 MG TAB PO SCH (21:05)
[2023-10-17] MEDS: DEXMEDETOMIDINE/0.9% NACL(PMX) 400 MCG in EMPTY BAG 1 BAG IV SCH (02:15)
[2023-10-17 04:59] LABS: Basophils % (A) 0 %; Eosinophils # (A) 0.4 k/uL (0-0.7); Eosinophils % (A) 5 %; HCT 34.2 % (39.0-53.0); HGB 11.7 gm/dL (13.0-17.5); Lymphocytes # (A) 1.7 k/uL (1.0-4.8); Lymphocytes % (A) 20 %; MCH 35.2 pg (25.0-35.0); MCHC 34.3 g/dL (31.0-37.0); MCV 102.8 fL (80.0-100.0); Macrocytosis Slight; Mean Platelet Volume 8.6; Monocytes # (A) 0.5 k/uL (0-1.0); Monocytes % (A) 5 %; Neutrophils # (A) 5.6 k/uL (1.3-7.7); Neutrophils % (A) 66 %; Platelet Count 148 k/uL (150-450); RBC 3.33 m/uL (4.30-5.90); RDW 15.5 % (11.5-15.5); WBC 8.4 k/uL (3.8-10.6)
[2023-10-17 05:11] LABS: African American GFR (CKD) >90 (>60 ml/min/1.73 sqM); Anion Gap 7 mmol/L; Blood Urea Nitrogen 9 mg/dL (9-20); Calcium 7.5 mg/dL (8.4-10.2); Carbon Dioxide 21 mmol/L (22-30); Chloride 104 mmol/L (98-107); Glucose 73 mg/dL (74-99); Magnesium 1.9 mg/dL (1.6-2.3); Non-African American GFR(CKD) >90 (>60 ml/min/1.73 sqM); Potassium 3.6 mmol/L (3.5-5.1); Sodium 132 mmol/L (137-145)
[2023-10-17] MEDS: LORazepam 2 MG/ML INJ IV PRN ×4 (05:22→22:26)
[2023-10-17] MEDS ORDERED: POTASSIUM BICARBONATE/CIT AC 20 MEQ TABLET.EFF NG-TUBE SCH (06:00)
--- NOTE | 2023-10-17 07:22 | P.PN ---
Subjective Progress Note Date: 10/17/23 PROGRESS NOTE The patient is a 63-year-old male with a known history of pulmonary fibrosis, significant restrictive lung disease, on home oxygen, alcohol abuse who presented with symptoms of progressive dyspnea, change in mental status with cough and congestion. His echocardiogram showed severe tricuspid regurgitation with evidence of RV dilatation and signs of volume and pressure overload with severe pulmonary hypertension. His left ventricle systolic function was normal. He is in sinus mechanism, feels anxious but denies any symptoms of chest discomfort, dizziness or palpitations. He denies any nausea or vomiting. Hemodynamically he is stable. Medications: Buspirone, Rocephin, Librium, Celexa, folic acid, Seroquel, thiamine PHYSICAL EXAMINATION: Blood pressure 148/70 heart rate 80 LUNGS: Scattered rhonchi HEART: Regular rate and rhythm, S1, S2. No S3. Systolic ejection murmur ABDOMEN: Soft, nontender, no organomegaly EXTREMETIES: No edema LAB: Sodium 132, potassium 3.6, hemoglobin 11.7, BUN 9, creatinine 0.49 IMPRESSION: 1. Respiratory failure, improving, in a patient with chronic pulmonary fibrosis and chronic respiratory hypoxemia 2. Hypernatremia secondary to alcohol intake 3. History of chronic alcohol abuse 4. Troponin elevation secondary to type II myocardial infarction 5. Severe pulmonary hypertension and severe tricuspid regurgitation 6. Change in mental status, improving PLAN: 1. Continue supportive care 2. Alcohol cessation 3. No indication for aggressive cardiac workup at this point 4. Follow-up as an outpatient 5. We will see him on as needed basis, please feel free to call us for any questions. Objective - Vital Signs Vital signs: Vital Signs Temp 98.1 F 10/17/23 04:00 Pulse 86 10/17/23 07:00 Resp 38 H 10/17/23 07:00 BP 142/100 10/16/23 08:00 Pulse Ox 97 10/17/23 07:00 FiO2 50 10/15/23 04:00 Intake & Output 10/16/23 10/17/23 10/17/23 18:59 06:59 18:59 Intake Total 796.753 739.569 53 Output Total 593 640 30 Balance 203.753 99.569 23 Weight 60.5 kg Intake: IV 36 36 3 .9 pressure bag 36 36 3 Intake, IV Titration 760.753 703.569 50 Amount Dexmedetomidine/0.9% NaCl 85.753 103.569 (Pmx) 400 mcg In Empty Bag 1 bag @ 0.2 MCG/KG/HR 3.107 mls/hr IV .Q24H [facility] Rx#:[id number] Sodium Chloride 0.9% 1, 675 600 50 000 ml @ 50 mls/hr IV . Q20H [facility] Rx#:[id number] Output: Urine 593 640 30 Other: Voiding Method Indwelling Catheter Indwelling Catheter ABP, PAP, CO, CI - Last Documented Arterial Blood Pressure 148/79 - Labs CBC & Chem 7: 10/17/23 04:40 10/17/23 04:40 Labs: Abnormal Lab Results - Last 24 Hours (Table) 10/17/23 10/17/23 Range/Units 04:40 04:40 RBC 3.33 L (4.30-5.90) m/uL Hgb 11.7 L (13.0-17.5) gm/dL Hct 34.2 L (39.0-53.0) % MCV 102.8 H (80.0-100.0) fL MCH 35.2 H (25.0-35.0) pg Plt Count 148 L (150-450) k/uL Sodium 132 L (137-145) mmol/L Carbon Dioxide 21 L (22-30) mmol/L Creatinine 0.49 L (0.66-1.25) mg/dL Glucose 73 L (74-99) mg/dL Calcium 7.5 L (8.4-10.2) mg/dL Microbiology - Last 24 Hours (Table) 10/14/23 02:00 Blood Culture - Preliminary Blood 10/14/23 02:15 Blood Culture - Preliminary Blood
[2023-10-17] MEDS: ALBUTEROL NEBULIZED 2.5 MG/3 ML INHALATION SCH ×3 (08:42→21:08)
[2023-10-17] MEDS: ENOXAPARIN 40 MG/0.4 ML SYRINGE SQ SCH (08:47)
[2023-10-17] MEDS: CITALOPRAM HYDROBROMIDE 20 MG TAB PO SCH (08:47)
[2023-10-17] MEDS: chlordiazePOXIDE 25 MG CAP PO SCH ×3 (08:48→21:00)
[2023-10-17] MEDS: FOLIC ACID 1 MG TAB PO SCH (08:48)
[2023-10-17] MEDS: MULTIVITAMINS, THERA 1 EACH TAB PO SCH (08:48)
[2023-10-17] MEDS: busPIRone HCl 5 MG TAB PO SCH ×2 (08:49→21:16)
[2023-10-17] MEDS: THIAMINE 100 MG in SODIUM CHLORIDE 0.9% 50 ML IVPB SCH (08:49)
[2023-10-17] MEDS: MORPHINE SULFATE 4 MG/ML SYRINGE IVP PRN ×4 (09:07→20:59)
--- NOTE | 2023-10-17 10:43 | P.PN ---
Subjective Patient is seen for follow-up for hyponatremia. Currently maintained on normal saline at 50 mL an hour. Trying to increase oral intake. Sodium is 132 today. Objective - Vital Signs Vital signs: Vital Signs Temp 98.1 F 10/17/23 04:00 Pulse 71 10/17/23 08:53 Resp 18 10/17/23 08:53 BP 142/100 10/16/23 08:00 Pulse Ox 97 10/17/23 08:42 FiO2 50 10/15/23 04:00 Intake & Output 10/16/23 10/17/23 10/17/23 18:59 06:59 18:59 Intake Total 796.753 739.569 53 Output Total 593 640 30 Balance 203.753 99.569 23 Weight 60.5 kg Intake: IV 36 36 3 .9 pressure bag 36 36 3 Intake, IV Titration 760.753 703.569 50 Amount Dexmedetomidine/0.9% NaCl 85.753 103.569 (Pmx) 400 mcg In Empty Bag 1 bag @ 0.2 MCG/KG/HR 3.107 mls/hr IV .Q24H [facility] Rx#:[id number] Sodium Chloride 0.9% 1, 675 600 50 000 ml @ 50 mls/hr IV . Q20H [facility] Rx#:[id number] Output: Urine 593 640 30 Other: Voiding Method Indwelling Catheter Indwelling Catheter ABP, PAP, CO, CI - Last Documented Arterial Blood Pressure 148/79 - Exam Patient is awake, comfortable, no acute distress Examination of the heart S1 and S2 Examination of the lungs bilateral breath sounds are heard Abdomen is soft nontender Examination of lower extremity shows no evidence of edema - Labs CBC & Chem 7: 10/17/23 04:40 10/17/23 04:40 Labs: Abnormal Lab Results - Last 24 Hours (Table) 10/17/23 10/17/23 Range/Units 04:40 04:40 RBC 3.33 L (4.30-5.90) m/uL Hgb 11.7 L (13.0-17.5) gm/dL Hct 34.2 L (39.0-53.0) % MCV 102.8 H (80.0-100.0) fL MCH 35.2 H (25.0-35.0) pg Plt Count 148 L (150-450) k/uL Sodium 132 L (137-145) mmol/L Carbon Dioxide 21 L (22-30) mmol/L Creatinine 0.49 L (0.66-1.25) mg/dL Glucose 73 L (74-99) mg/dL Calcium 7.5 L (8.4-10.2) mg/dL Microbiology - Last 24 Hours (Table) 10/14/23 02:00 Blood Culture - Preliminary Blood 10/14/23 02:15 Blood Culture - Preliminary Blood Assessment and Plan Assessment: 1. Hypovolemic hyponatremia improved with IV fluids. Sodium level 121 on admission and up to 132 this morning. Urine sodium 38 and urine osmolality 197. TSH normal. 2. Alcohol abuse. 3. Acute hypoxic respiratory failure. 4. Pneumonia on antibiotics. 5. Hypokalemia from poor intake. Replaced. Improved. 6. Chronic diastolic CHF with severe tricuspid regurgitation and pulmonary hypertension. Plan: Increase oral intake Discontinue IV fluids if oral intake is improved. DC fluid restriction Repeat labs in a.m.
--- NOTE | 2023-10-17 11:52 | P.PN ---
Subjective Progress Note Date: 10/17/23 No new complaints. Pts oxygen requirement stable. Still requiring precedex Gen: In NAD, non-toxic HEENT: normocephalic, atraumatic, hearing acuity is intant, mucous membranes moist CVS: perfusing all extremities well, no pitting edema, Respiratory: symmetric chest expansion, no accessory muscle use, GI: soft, NTTP, ND, : no suprapubic tenderness, no CVA tenderness MSK/Derm: no rashes, cyanosis Neuro: CN II-XII intact, no motor weakness, Psych: cooperative, euthymic mood, judgment and insight is intact Hospital course: Patient is a 63-year-old male with a PMH of EtOH abuse with history of DTs, idiopathic pulmonary fibrosis on 2 L nasal cannula oxygen at home, and chronic lower back pain who presented to the emergency room for alcohol intoxication, accompanied by his . Chest x-ray in the emergency room revealed findings consistent with multi lobar pneumonia. EKG reveals sinus tachycardia 108 bpm with T-wave inversion in leads V2 and V3 as well as in leads 3 and aVF. Laborat ory evaluation revealed a platelet count of 143, sodium 121, chloride 90, CO2 21, lactic acid 2.7, serum alcohol level 265, viral respiratory panel unremarkable, troponin 0.017, and proBNP 4019 with AST 222 and ALT 331. Assessment/plan: Alcohol dependence with alcohol withdrawal syndrome Transaminitis, likely due to EtOH abuse Thrombocythemia, likely due to alcohol abuse -Continue ICU care, pt has A-line, central line -Continue Precedex, wean as tolerated -Continue Librium 25 mg 3 times daily scheduled -Thiamine, folic acid, multivitamin -CIWA protocol, Ativan as needed Acute on chronic hypoxemic respiratory failure Chronic interstitial pulmonary fibrosis Aspiration pneumonia Lactic acidosis -Continue ceftriaxone, azithromycin -Continue oxygen as needed -Lactic acidosis has resolved -Cardiology consulted, echocardiogram ordered, shows preserved EF, significant pHTN with severe TR Hypochloremic hyponatremia, -Nephrology consulted for fluid management, sodium improving to 134 DVT prophylaxis: Lovenox subcu The patient is admitted with an anticipated greater than 2 midnight stay for evaluation of EtOh abuse CODE STATUS: Full Code Discussed with: Patient, Anticipated discharge place: Home Objective - Vital Signs Vital signs: Vital Signs Temp 98.6 F 10/17/23 08:00 Pulse 81 10/17/23 11:00 Resp 26 H 10/17/23 11:00 BP 142/100 10/16/23 08:00 Pulse Ox 95 10/17/23 11:00 FiO2 50 10/15/23 04:00 Intake & Output 10/16/23 10/17/23 10/17/23 18:59 06:59 18:59 Intake Total 796.753 739.569 298.039 Output Total 593 640 630 Balance 203.753 99.569 -331.961 Weight 60.5 kg Intake: IV 36 36 15 .9 pressure bag 36 36 15 Intake, IV Titration 760.753 703.569 283.039 Amount Dexmedetomidine/0.9% NaCl 85.753 103.569 33.039 (Pmx) 400 mcg In Empty Bag 1 bag @ 0.2 MCG/KG/HR 3.107 mls/hr IV .Q24H [facility] Rx#:[id number] Sodium Chloride 0.9% 1, 675 600 200 000 ml @ 50 mls/hr IV . Q20H [facility] Rx#:[id number] Thiamine 100 mg In Sodium 50 Chloride 0.9% 50 ml @ 100 mls/hr IVPB DAILY [facility] Rx#:[id number] Output: Urine 593 640 630 Other: Voiding Method Indwelling Catheter Indwelling Catheter Indwelling Catheter ABP, PAP, CO, CI - Last Documented Arterial Blood Pressure 108/61 - Labs CBC & Chem 7: 10/17/23 04:40 10/17/23 04:40 Labs: Abnormal Lab Results - Last 24 Hours (Table) 10/17/23 10/17/23 Range/Units 04:40 04:40 RBC 3.33 L (4.30-5.90) m/uL Hgb 11.7 L (13.0-17.5) gm/dL Hct 34.2 L (39.0-53.0) % MCV 102.8 H (80.0-100.0) fL MCH 35.2 H (25.0-35.0) pg Plt Count 148 L (150-450) k/uL Sodium 132 L (137-145) mmol/L Carbon Dioxide 21 L (22-30) mmol/L Creatinine 0.49 L (0.66-1.25) mg/dL Glucose 73 L (74-99) mg/dL Calcium 7.5 L (8.4-10.2) mg/dL Microbiology - Last 24 Hours (Table) 10/14/23 02:00 Blood Culture - Preliminary Blood 10/14/23 02:15 Blood Culture - Preliminary Blood
[2023-10-17] MEDS: SODIUM CHLORIDE 0.9% 1,000 ML IV SCH (12:53)
--- NOTE | 2023-10-17 13:25 | P.PN ---
Subjective Progress Note Date: 10/17/23 Principal diagnosis: Acute on chronic hypoxic respiratory failure secondary to idiopathic pulmonary fibrosis and possible right diaphragm paralysis with restrictive lung disease This is a 63-year-old male patient with advanced pulmonary fibrosis. The patient has IPF and currently is on Ofev and he has significant restrictive lung disease in FVC of 45% of predicted. Is also oxygen dependent and utilizes 3 L of O2 nasal cannula. The patient also has history of excessive alcohol consumption. He drinks alcohol excessively around 7 beers a day and he also drinks a fifth of peppermint schnapps every day. The patient presented to the hospital because of worsening shortness of breath, increased cough and congestion. No reported fever. No reported chest pain. In the emergency department, the chest x-ray was consistent with pulmonary fibrosis addition to patchy bilateral pulmonary infiltrates more so on the lung bases. The patient has chronic elevation of the right hemidiaphragm. Upon arrival, his alcohol level was quite elevated at 265. Subsequently, he was brought into the intensive care unit placed on a 50% Ventimask and the patient is having ongoing confusion and restlessness and agitation. There was obvious concern that the patient was going into delirium related to alcohol withdrawal and the patient was started on Precedex. Currently Precedex is running at 0.4 mcg/kg/m. His blood work shows a WBC count of 14.3 with a hemoglobin of 15 and a platelet count of 149. The blood gas showed a pH of 7.48 with a pCO2 of 35 and pO2 of 76 and this was identified to 50%. Sodium level is at 127. Lactic acid level is at 3.6. Troponins are 0.045. The patient is currently on IV fluids of normal saline at rate of 100 mL an hour. His LFTs are showing an AST of 175, AST of 322, and the initial troponin was at 0.045. Echocardiogram was in progress. M eanwhile, the patient was also covered with broad-spectrum antibiotics. The patient is currently on a combination of Rocephin and Zithromax. Mentation is altered. Neurologic exam is nonfocal. On 10/15/2023, the patient is being seen for a follow-up. Is currently on a 40% Ventimask. Breathing has improved and breathing is less labored compared to yesterday. In same time, the patient was invading tremens and the patient was treated with Precedex. This morning, Precedex is running at 0.8 microvascular kilogram per minutes. The patient is also on IV fluids with normal saline at rate of 75 mL an hour. He is responsive. Is, comfortable. Is able to follow simple commands and have regular conversation. No significant agitation. He reports that his breathing is improved. He remains on Rocephin and Zithromax. He remains on bronchodilators. In terms of his blood work, his sodium level is up to 129, BUN is 11 with a creatinine of 0.6 and a potassium level is at 3.6. The white cell cause of 9.2 with a hemoglobin of 12.9. His pro calcitonin level was at 0.05. No other significant events overnight. The triple-lumen catheter was removed as the catheter was noted to be in his neck. He has adequate IV access for now. He is also on Lovenox portably prophylaxis. 10/16/2023, the patient is on 2 L of oxygen by nasal cannula. Doing well. Communicating. No measures to distress at rest. Is known to have advanced IPF and has chronic hypoxic respiratory failure. Oxygen is improved and the patient is back to his 2 L of O2 nasal cannula. At the same time, his being treated for delirium tremens secondary to alcohol withdrawal. Precedex was being titrated and the patient is currently on 0.2 mcg/kg/h. He has arousable. Is following simple commands. He is lethargic yet he seems to be appropriate is aware that he is in the hospital. He is aware of the date and time. echoes of 8.5, hemoglobin 11.7, platelets of 142, BUN is at 40 with a creatinine of 0.6 and a sodium level is at 134. Potassium level has been replaced and it's up to 4.0. Remains on Rocephin. Completed course of Zithromax. Remains on Lovenox for DVT prophylaxis. Is taking Seroquel 50 mg at bedtime. He remains on thiamine. IV fluids are at the rate of 50 mL an hour of normal saline. 10/17/2023, patient remains, in the ICU, he is on 3 L nasal cannula, remains on Precedex at 0.8 mcg/kg/h remains on IV fluid at 50 mL per hour intermittently receiving morphine and Ativan, remains on the CIWA protocol, patient is comfortable, does not seem to be in distress. Normally the patient drinks over 7 beers a day. He is known to have history of IPF and he is maintained on ofev, his pulmonary fibrosis was never tissue diagnosis,patient is on Lovenox and ceftriaxone. WBC count is 8.4 hemoglobin is 11.7 basic metabolic profile is normal and renal profile is normal, blood cultures are negative since admission. Patient remains on thiamine, Objective - Vital Signs Vital signs: Vital Signs Temp 98.5 F 10/17/23 12:00 Pulse 85 10/17/23 13:00 Resp 23 10/17/23 13:00 BP 142/100 10/16/23 08:00 Pulse Ox 96 10/17/23 13:00 FiO2 50 10/15/23 04:00 Intake & Output 10/16/23 10/17/23 10/17/23 18:59 06:59 18:59 Intake Total 796.753 739.569 309.692 Output Total 593 640 630 Balance 203.753 99.569 -320.308 Weight 60.5 kg Intake: IV 36 36 15 .9 pressure bag 36 36 15 Intake, IV Titration 760.753 703.569 294.692 Amount Dexmedetomidine/0.9% NaCl 85.753 103.569 44.692 (Pmx) 400 mcg In Empty Bag 1 bag @ 0.2 MCG/KG/HR 3.107 mls/hr IV .Q24H [facility] Rx#:[id number] Sodium Chloride 0.9% 1, 675 600 200 000 ml @ 50 mls/hr IV . Q20H [facility] Rx#:[id number] Thiamine 100 mg In Sodium 50 Chloride 0.9% 50 ml @ 100 mls/hr IVPB DAILY [facility] Rx#:[id number] Output: Urine 593 640 630 Other: Voiding Method Indwelling Catheter Indwelling Catheter Indwelling Catheter ABP, PAP, CO, CI - Last Documented Arterial Blood Pressure 131/67 - Exam Physical Exam: Revealed 63-year-old white male in no distress on 3 L nasal cannula Head: Atraumatic, normocephalic HEENT:[Neck is supple.] [No neck masses.] [No thyromegaly.] [No JVD.] Chest: [Fine Velcro crackles noted at the bases. Cardiac Exam: [Normal S1 and S2, no S3 gallop, no murmur.] Abdomen: [Soft, nontender, no megaly, no rebound, no guarding, normal bowel sounds.] Extremities: [Minimal clubbing, no edema, no cyanosis.] Neurological Exam: [No focal neurologic deficit.] Alert and oriented 3. Psychiatric: Normal mood affect and normal mental status examination. Skin: No rashes. - Labs CBC & Chem 7: 10/17/23 04:40 10/17/23 04:40 Labs: Abnormal Lab Results - Last 24 Hours (Table) 10/17/23 10/17/23 Range/Units 04:40 04:40 RBC 3.33 L (4.30-5.90) m/uL Hgb 11.7 L (13.0-17.5) gm/dL Hct 34.2 L (39.0-53.0) % MCV 102.8 H (80.0-100.0) fL MCH 35.2 H (25.0-35.0) pg Plt Count 148 L (150-450) k/uL Sodium 132 L (137-145) mmol/L Carbon Dioxide 21 L (22-30) mmol/L Creatinine 0.49 L (0.66-1.25) mg/dL Glucose 73 L (74-99) mg/dL Calcium 7.5 L (8.4-10.2) mg/dL Microbiology - Last 24 Hours (Table) 10/14/23 02:00 Blood Culture - Preliminary Blood 10/14/23 02:15 Blood Culture - Preliminary Blood Assessment and Plan Assessment: Impression: Acute on chronic hypoxic respiratory failure secondary to idiopathic pulmonary fibrosis Chronic hypoxic respiratory failure usually on home O2 at 3 L/m Idiopathic pulmonary fibrosis, maintained on ofev History of alcoholism Acute alcohol withdrawal Hyperchloremic hypernatremia Mild transaminitis related to alcoholism History of PEA cardiac arrest Generalized anxiety disorder Recommendation: Continue oxygen and titrate accordingly Continue Precedex and titrate accordingly Continue CIWA protocol. Continue antibiotics Continue to monitor electrolytes and correct accordingly Continue Librium and Precedex. Continue to monitor in the ICU for now. Continue GI and DVT prophylaxis. Follow-up chest x-ray in a.m. We will continue to follow. Time with Patient: Less than 30
[2023-10-17] MEDS: cloNIDine HCL 0.1 MG TAB PO SCH ×2 (18:25→20:59)
[2023-10-17] MEDS: QUEtiapine 50 MG TAB PO SCH (20:59)
[2023-10-18] MEDS: MORPHINE SULFATE 4 MG/ML SYRINGE IVP PRN ×3 (05:11→17:28)
[2023-10-18] MEDS: SODIUM CHLORIDE 0.9% 1,000 ML IV SCH (05:49)
[2023-10-18] MEDS: ALBUTEROL NEBULIZED 2.5 MG/3 ML INHALATION SCH ×3 (07:41→20:19)
--- NOTE | 2023-10-18 07:43 | XR ---
EXAMINATION TYPE: XR chest 1V portable DATE OF EXAM: 10/18/2023 6:23 AM CLINICAL INDICATION:Male, 63 years old with history of usual interstitial pneumonia COMPARISON: Chest radiograph from one day prior. TECHNIQUE: XR chest 1V portable Frontal view of the chest. FINDINGS: Lungs/Pleura: Prominent interstitial lung markings and airspace opacities are seen scattered througho ut the lungs. No evidence of focal consolidation, pneumothorax or pleural effusion. Pulmonary vascularity: Unremarkable. Heart/mediastinum: Cardiomediastinal silhouette is unremarkable. Musculoskeletal: No acute osseous pathology. Other findings: None IMPRESSION: Chronic airspace opacities with superimposed acute process not excluded given the extensive airspace opacities. Correlate clinically.
[2023-10-18 09:05] LABS: African American GFR (CKD) >90 (>60 ml/min/1.73 sqM); Anion Gap 11 mmol/L; Blood Urea Nitrogen 7 mg/dL (9-20); Calcium 8.1 mg/dL (8.4-10.2); Carbon Dioxide 21 mmol/L (22-30); Chloride 100 mmol/L (98-107); Glucose 69 mg/dL (74-99); Non-African American GFR(CKD) >90 (>60 ml/min/1.73 sqM); Sodium 132 mmol/L (137-145)
[2023-10-18 09:13] LABS: Magnesium 1.9 mg/dL (1.6-2.3)
[2023-10-18 09:30] LABS: Basophils % (A) 0 %; Eosinophils # (A) 0.3 k/uL (0-0.7); Eosinophils % (A) 3 %; HGB 12.5 gm/dL (13.0-17.5); Lymphocytes # (A) 1.8 k/uL (1.0-4.8); Lymphocytes % (A) 20 %; MCH 35.2 pg (25.0-35.0); MCHC 33.8 g/dL (31.0-37.0); MCV 104.2 fL (80.0-100.0); Macrocytosis Moderate; Monocytes # (A) 0.7 k/uL (0-1.0); Monocytes % (A) 7 %; Neutrophils % (A) 66 %; Platelet Count 182 k/uL (150-450); RBC 3.55 m/uL (4.30-5.90); WBC 9.1 k/uL (3.8-10.6)
[2023-10-18] MEDS: chlordiazePOXIDE 25 MG CAP PO SCH (09:31)
[2023-10-18] MEDS: CITALOPRAM HYDROBROMIDE 20 MG TAB PO SCH (09:31)
[2023-10-18] MEDS: busPIRone HCl 5 MG TAB PO SCH ×2 (09:31→21:18)
[2023-10-18] MEDS: FOLIC ACID 1 MG TAB PO SCH (09:31)
[2023-10-18] MEDS: MULTIVITAMINS, THERA 1 EACH TAB PO SCH (09:32)
[2023-10-18] MEDS: ENOXAPARIN 40 MG/0.4 ML SYRINGE SQ SCH (09:32)
[2023-10-18] MEDS: cloNIDine HCL 0.1 MG TAB PO SCH ×3 (09:34→22:47)
[2023-10-18] MEDS ORDERED: LACTULOSE 20 GM/30 ML CUP PO ONE (10:00)
[2023-10-18] MEDS: SIMETHICONE 80 MG CHEWABLE PO SCH ×4 (10:58→22:53)
[2023-10-18] MEDS: THIAMINE 100 MG in SODIUM CHLORIDE 0.9% 50 ML IVPB SCH (10:59)
--- NOTE | 2023-10-18 12:45 | P.PN ---
Subjective Progress Note Date: 10/18/23 Patient is a 63-year-old male with known EtOH dependency, chronic back pain, pulmonary fibrosis home O2 dependent on 3 L, and multiple other comorbid conditions who presented to the emergency department due to alcohol intoxication. In the ER he underwent extensive evaluation. Chest x-ray showed multilobar pneumonia. Initial vitals were remarkable for a pulse of 113 and an O2 sat of 85% on room air. Initial labs were remarkable for sodium 121, carbon dioxide 21, lactic acid 2.7, AST 222, ALT 331, and BNP of 4020. Influenza A/B/RSV/COVID-19 testing was negative. Serum alcohol was elevated at 265. Patient was subsequently admitted. He was started on CIWA protocol, ceftriaxone, and Zithromax. Pulmonary was consulted as well as nephrology. He was subsequently started on scheduled Librium to help with his DTs. He then required the addition of Catapres. His troponin did elevate to 0.045 and cardiology was consulted. He underwent echocardiogram which showed severe pulmonary hypertension with right ventricular dilatation and an RVSP of greater than 60 with severe tricuspid regurgitation and left ventricular ejection fraction of 55%. Patient seen and examined at bedside. Reports some shortness of breath. He states has been quite sometime since he had a bowel movement. He denies any nausea or vomiting. He does report decreased appetite and feeling as though he is very unsteady on his feet. Vital signs reviewed General: Nontoxic, mild distress, appears at stated age Cardiovascular: S1S2 reg, no murmur Lungs: Bilateral rhonchi , no accessory muscle use Abdominal: Soft, nontender to palpation, no guarding Ext: No gross muscle atrophy, no edema b/l lower extremities, no contractures Neuro: CN II-XI grossly intact, no focal neuro deficits, tremulous Psych: Alert, oriented, appropriate affect Assessment/Plan: Acute on chronic hypoxemic respiratory failure Chronic interstitial pulmonary fibrosis Pneumonia, pssoinel aspiration vs community acquired Severe pulmonary hypertension - Zithromax completed - Rocephin 2 grams IVPB D # 01/30 -Pulmonary note reviewed from 10/17. Continue antibiotics. -Patient is on 3 L of oxygen which is consistent with patient's use at home Constipation -Lactulose 30 mg p.o. x 1 now Alcohol dependence with alcohol withdrawal syndrome Transaminitis, likely due to EtOH abuse Thrombocytopenia likely due to alcohol abuse And off Precedex. Patient does appear slightly sedated. Will decrease Librium to 10 mg 3 times daily -Continue with CIWA protocol and appropriate Ativan dosing for scoring -Thiamine 100 mg IV piggyback daily, folic acid 1 mg daily - repeat CBC in AM Hyponatremia -Nephrology note reviewed from 10/17: Increase oral intake, DC IV fluids, DC fluid restriction, follow labs. Lactic acidosis, resolved Imaging: Chest x-rays reviewed by myself shows continued bilateral interstitial infiltrates with significantly dilated loops of bowel Data Review: Check BMP today, rpeat BMP and CBC tomorrow to monitor Plt and sodium DVT prophylaxis: Heparin Anticipated discharge date: in 24-[address]: home with home health VS SNF This dictation was prepared using [employer] voice recognition software. Though every attempt is made to correct errors during dictation some may still exist. Objective - Vital Signs Vital signs: Vital Signs Temp 98.2 F 10/18/23 12:16 Pulse 100 10/18/23 12:31 Resp 20 10/18/23 12:16 BP 120/81 10/18/23 12:16 Pulse Ox 96 10/18/23 12:16 FiO2 50 10/15/23 04:00 Intake & Output 10/17/23 10/18/23 10/18/23 18:59 06:59 18:59 Intake Total 574.692 20 Output Total 805 1250 300 Balance -230.308 -1250 -280 Intake: IV 30 20 .9 pressure bag 30 Invasive Line 2 10 Invasive Line 7 10 Intake, IV Titration 544.692 Amount Dexmedetomidine/0.9% NaCl 44.692 (Pmx) 400 mcg In Empty Bag 1 bag @ 0.2 MCG/KG/HR 3.107 mls/hr IV .Q24H ИРИНА Rx#:[id number] Sodium Chloride 0.9% 1, 450 000 ml @ 50 mls/hr IV . Q20H ИРИНА Rx#:[id number] Thiamine 100 mg In Sodium 50 Chloride 0.9% 50 ml @ 100 mls/hr IVPB DAILY ИРИНА Rx#:[id number] Output: Urine 805 1250 300 Other: Voiding Method Indwelling Catheter Urinal Urinal # Voids 1 ABP, PAP, CO, CI - Last Documented Arterial Blood Pressure 178/89 - Labs CBC & Chem 7: 10/18/23 09:06 10/18/23 07:00 Labs: Abnormal Lab Results - Last 24 Hours (Table) 10/18/23 10/18/23 Range/Units 07:00 09:06 RBC 3.55 L (4.30-5.90) m/uL Hgb 12.5 L (13.0-17.5) gm/dL Hct 37.0 L (39.0-53.0) % MCV 104.2 H (80.0-100.0) fL MCH 35.2 H (25.0-35.0) pg Sodium 132 L (137-145) mmol/L Carbon Dioxide 21 L (22-30) mmol/L BUN 7 L (9-20) mg/dL Creatinine 0.45 L (0.66-1.25) mg/dL Glucose 69 L (74-99) mg/dL Calcium 8.1 L (8.4-10.2) mg/dL Microbiology - Last 24 Hours (Table) 10/14/23 02:00 Blood Culture - Preliminary Blood 10/14/23 02:15 Blood Culture - Preliminary Blood
[2023-10-18 13:09] LABS: African American GFR (CKD) >90 (>60 ml/min/1.73 sqM); Anion Gap 10 mmol/L; Blood Urea Nitrogen 8 mg/dL (9-20); Calcium 8.2 mg/dL (8.4-10.2); Carbon Dioxide 21 mmol/L (22-30); Chloride 101 mmol/L (98-107); Glucose 85 mg/dL (74-99); Non-African American GFR(CKD) >90 (>60 ml/min/1.73 sqM); Sodium 132 mmol/L (137-145)
[2023-10-18 13:11] LABS: Potassium 4.3 mmol/L (3.5-5.1)
[2023-10-18 13:20] VITALS: BMI 20.2
--- NOTE | 2023-10-18 13:31 | P.PN ---
Subjective Progress Note Date: 10/18/23 Principal diagnosis: Acute on chronic hypoxic respiratory failure secondary to idiopathic pulmonary fibrosis and possible right diaphragm paralysis with restrictive lung disease This is a 63-year-old male patient with advanced pulmonary fibrosis. The patient has IPF and currently is on Ofev and he has significant restrictive lung disease in FVC of 45% of predicted. Is also oxygen dependent and utilizes 3 L of O2 nasal cannula. The patient also has history of excessive alcohol consumption. He drinks alcohol excessively around 7 beers a day and he also drinks a fifth of peppermint schnapps every day. The patient presented to the hospital because of worsening shortness of breath, increased cough and congestion. No reported fever. No reported chest pain. In the emergency department, the chest x-ray was consistent with pulmonary fibrosis addition to patchy bilateral pulmonary infiltrates more so on the lung bases. The patient has chronic elevation of the right hemidiaphragm. Upon arrival, his alcohol level was quite elevated at 265. Subsequently, he was brought into the intensive care unit placed on a 50% Ventimask and the patient is having ongoing confusion and restlessness and agitation. There was obvious concern that the patient was going into delirium related to alcohol withdrawal and the patient was started on Precedex. Currently Precedex is running at 0.4 mcg/kg/m. His blood work shows a WBC count of 14.3 with a hemoglobin of 15 and a platelet count of 149. The blood gas showed a pH of 7.48 with a pCO2 of 35 and pO2 of 76 and this was identified to 50%. Sodium level is at 127. Lactic acid level is at 3.6. Troponins are 0.045. The patient is currently on IV fluids of normal saline at rate of 100 mL an hour. His LFTs are showing an AST of 175, AST of 322, and the initial troponin was at 0.045. Echocardiogram was in progress. M eanwhile, the patient was also covered with broad-spectrum antibiotics. The patient is currently on a combination of Rocephin and Zithromax. Mentation is altered. Neurologic exam is nonfocal. On 10/15/2023, the patient is being seen for a follow-up. Is currently on a 40% Ventimask. Breathing has improved and breathing is less labored compared to yesterday. In same time, the patient was invading tremens and the patient was treated with Precedex. This morning, Precedex is running at 0.8 microvascular kilogram per minutes. The patient is also on IV fluids with normal saline at rate of 75 mL an hour. He is responsive. Is, comfortable. Is able to follow simple commands and have regular conversation. No significant agitation. He reports that his breathing is improved. He remains on Rocephin and Zithromax. He remains on bronchodilators. In terms of his blood work, his sodium level is up to 129, BUN is 11 with a creatinine of 0.6 and a potassium level is at 3.6. The white cell cause of 9.2 with a hemoglobin of 12.9. His pro calcitonin level was at 0.05. No other significant events overnight. The triple-lumen catheter was removed as the catheter was noted to be in his neck. He has adequate IV access for now. He is also on Lovenox portably prophylaxis. 10/16/2023, the patient is on 2 L of oxygen by nasal cannula. Doing well. Communicating. No measures to distress at rest. Is known to have advanced IPF and has chronic hypoxic respiratory failure. Oxygen is improved and the patient is back to his 2 L of O2 nasal cannula. At the same time, his being treated for delirium tremens secondary to alcohol withdrawal. Precedex was being titrated and the patient is currently on 0.2 mcg/kg/h. He has arousable. Is following simple commands. He is lethargic yet he seems to be appropriate is aware that he is in the hospital. He is aware of the date and time. echoes of 8.5, hemoglobin 11.7, platelets of 142, BUN is at 40 with a creatinine of 0.6 and a sodium level is at 134. Potassium level has been replaced and it's up to 4.0. Remains on Rocephin. Completed course of Zithromax. Remains on Lovenox for DVT prophylaxis. Is taking Seroquel 50 mg at bedtime. He remains on thiamine. IV fluids are at the rate of 50 mL an hour of normal saline. 10/17/2023, patient remains, in the ICU, he is on 3 L nasal cannula, remains on Precedex at 0.8 mcg/kg/h remains on IV fluid at 50 mL per hour intermittently receiving morphine and Ativan, remains on the CIWA protocol, patient is comfortable, does not seem to be in distress. Normally the patient drinks over 7 beers a day. He is known to have history of IPF and he is maintained on ofev, his pulmonary fibrosis was never tissue diagnosis,patient is on Lovenox and ceftriaxone. WBC count is 8.4 hemoglobin is 11.7 basic metabolic profile is normal and renal profile is normal, blood cultures are negative since admission. Patient remains on thiamine, Reevaluated today on 10/18/2023,Remains on 3 thirds nasal cannula with O2 sats of 96%, patient continues to have chronic shortness of breath, intermittent cough, planing of mostly back pain, which is a chronic issue for the patient. Pulmonary [place] he is slightly better, but considering his baseline pulmonary fibrosis and chronic hypoxic respiratory failure, I doubt the patient will actually feel a significant relief in his pulmonary status overall. Continues to have crackles on physical examination bilaterally. But overall the patient seems to be comfortable on nasal cannula, and not in distress. Labs today including basic metabolic profile noted to be unremarkable. Objective - Vital Signs Vital signs: Vital Signs Temp 98.2 F 10/18/23 12:16 Pulse 100 10/18/23 12:31 Resp 20 10/18/23 12:16 BP 120/81 10/18/23 12:16 Pulse Ox 96 10/18/23 12:16 FiO2 50 10/15/23 04:00 Intake & Output 10/17/23 10/18/23 10/18/23 18:59 06:59 18:59 Intake Total 574.692 20 Output Total 805 1250 300 Balance -230.308 -1250 -280 Weight 60.5 kg Intake: IV 30 20 .9 pressure bag 30 Invasive Line 2 10 Invasive Line 7 10 Intake, IV Titration 544.692 Amount Dexmedetomidine/0.9% NaCl 44.692 (Pmx) 400 mcg In Empty Bag 1 bag @ 0.2 MCG/KG/HR 3.107 mls/hr IV .Q24H [facility] Rx#:[id number] Sodium Chloride 0.9% 1, 450 000 ml @ 50 mls/hr IV . Q20H ИРИНА Rx#:[id number] Thiamine 100 mg In Sodium 50 Chloride 0.9% 50 ml @ 100 mls/hr IVPB DAILY ИРИНА Rx#:[id number] Output: Urine 805 1250 300 Other: Voiding Method Indwelling Catheter Urinal Urinal # Voids 1 ABP, PAP, CO, CI - Last Documented Arterial Blood Pressure 178/89 - Exam Physical Exam: Revealed 63-year-old white male in no distress on 3 L nasal cannula Head: Atraumatic, normocephalic HEENT:[Neck is supple.] [No neck masses.] [No thyromegaly.] [No JVD.] Chest: [Fine Velcro crackles noted at the bases. Cardiac Exam: [Normal S1 and S2, no S3 gallop, no murmur.] Abdomen: [Soft, nontender, no megaly, no rebound, no guarding, normal bowel sounds.] Extremities: [Minimal clubbing, no edema, no cyanosis.] Neurological Exam: [No focal neurologic deficit.] Alert and oriented 3. Psychiatric: Normal mood affect and normal mental status examination. Skin: No rashes. - Labs CBC & Chem 7: 10/18/23 09:06 10/18/23 12:45 Labs: Abnormal Lab Results - Last 24 Hours (Table) 10/18/23 10/18/23 10/18/23 Range/Units 07:00 09:06 12:45 RBC 3.55 L (4.30-5.90) m/uL Hgb 12.5 L (13.0-17.5) gm/dL Hct 37.0 L (39.0-53.0) % MCV 104.2 H (80.0-100.0) fL MCH 35.2 H (25.0-35.0) pg Sodium 132 L 132 L (137-145) mmol/L Carbon Dioxide 21 L 21 L (22-30) mmol/L BUN 7 L 8 L (9-20) mg/dL Creatinine 0.45 L 0.40 L (0.66-1.25) mg/dL Glucose 69 L (74-99) mg/dL Calcium 8.1 L 8.2 L (8.4-10.2) mg/dL Microbiology - Last 24 Hours (Table) 10/14/23 02:00 Blood Culture - Preliminary Blood 10/14/23 02:15 Blood Culture - Preliminary Blood Assessment and Plan Assessment: Impression: Acute on chronic hypoxic respiratory failure secondary to idiopathic pulmonary fibrosis Chronic hypoxic respiratory failure usually on home O2 at 3 L/m Idiopathic pulmonary fibrosis, maintained on ofev History of alcoholism Acute alcohol withdrawal Hyperchloremic hypernatremia Mild transaminitis related to alcoholism History of PEA cardiac arrest Generalized anxiety disorder Recommendation: Continue oxygen and titrate accordingly Continue CIWA protocol. Continue antibiotics, can transition to oral antibiotics in the next 24 hours Continue to monitor electrolytes and correct accordingly Continue Librium Continue GI and DVT prophylaxis. Chest x-ray was reviewed, not much of a change continues to have fibrotic lung disease. Pneumonia could not be entirely ruled out. Consider discharge planning in the next 24 hours if possible We will continue to follow. Time with Patient: Less than 30
--- NOTE | 2023-10-18 16:23 | P.PN ---
Subjective Patient is seen for follow-up for hyponatremia. Currently maintained on normal saline at 50 mL an hour. Trying to increase oral intake. Sodium staying at 132. No significant complaints. Objective - Vital Signs Vital signs: Vital Signs Temp 98.2 F 10/18/23 12:16 Pulse 100 10/18/23 12:31 Resp 20 10/18/23 12:16 BP 120/81 10/18/23 12:16 Pulse Ox 96 10/18/23 12:16 FiO2 50 10/15/23 04:00 Intake & Output 10/17/23 10/18/23 10/18/23 18:59 06:59 18:59 Intake Total 574.692 20 Output Total 805 1250 300 Balance -230.308 -1250 -280 Weight 60.5 kg Intake: IV 30 20 .9 pressure bag 30 Invasive Line 2 10 Invasive Line 7 10 Intake, IV Titration 544.692 Amount Dexmedetomidine/0.9% NaCl 44.692 (Pmx) 400 mcg In Empty Bag 1 bag @ 0.2 MCG/KG/HR 3.107 mls/hr IV .Q24H [facility] Rx#:[id number] Sodium Chloride 0.9% 1, 450 000 ml @ 50 mls/hr IV . Q20H ИРИНА Rx#:[id number] Thiamine 100 mg In Sodium 50 Chloride 0.9% 50 ml @ 100 mls/hr IVPB DAILY ИРИНА Rx#:[id number] Output: Urine 805 1250 300 Other: Voiding Method Indwelling Catheter Urinal Urinal # Voids 1 ABP, PAP, CO, CI - Last Documented Arterial Blood Pressure 178/89 - Exam Patient is awake, comfortable, no acute distress Examination of the heart S1 and S2 Examination of the lungs bilateral breath sounds are heard Abdomen is soft nontender Examination of lower extremity shows no evidence of edema - Labs CBC & Chem 7: 10/18/23 09:06 10/18/23 12:45 Labs: Abnormal Lab Results - Last 24 Hours (Table) 10/18/23 10/18/23 10/18/23 Range/Units 07:00 09:06 12:45 RBC 3.55 L (4.30-5.90) m/uL Hgb 12.5 L (13.0-17.5) gm/dL Hct 37.0 L (39.0-53.0) % MCV 104.2 H (80.0-100.0) fL MCH 35.2 H (25.0-35.0) pg Sodium 132 L 132 L (137-145) mmol/L Carbon Dioxide 21 L 21 L (22-30) mmol/L BUN 7 L 8 L (9-20) mg/dL Creatinine 0.45 L 0.40 L (0.66-1.25) mg/dL Glucose 69 L (74-99) mg/dL Calcium 8.1 L 8.2 L (8.4-10.2) mg/dL Microbiology - Last 24 Hours (Table) 10/14/23 02:00 Blood Culture - Preliminary Blood 10/14/23 02:15 Blood Culture - Preliminary Blood Assessment and Plan Assessment: 1. Hypovolemic hyponatremia improved with IV fluids. Sodium level 121 on admission and up to 132 this morning. Urine sodium 38 and urine osmolality 197. TSH normal. 2. Alcohol abuse. 3. Acute hypoxic respiratory failure. 4. Pneumonia on antibiotics. 5. Hypokalemia from poor intake. Replaced. Improved. 6. Chronic diastolic CHF with severe tricuspid regurgitation and pulmonary hypertension. Plan: Increase oral intake Discontinue IV fluids DC fluid restriction Repeat labs in a.m.
[2023-10-18] MEDS: QUEtiapine 50 MG TAB PO SCH (17:07)
[2023-10-18] MEDS: QUEtiapine 100 MG TAB PO SCH (21:17)
[2023-10-18] MEDS: HEPARIN SODIUM,PORCINE 5,000 UNIT/ML 1 ML VIAL SQ SCH (21:18)
[2023-10-19] MEDS: MORPHINE SULFATE 4 MG/ML SYRINGE IVP PRN ×5 (01:12→19:30)
[2023-10-19] MEDS: SODIUM CHLORIDE 0.9% 1,000 ML IV SCH (01:39)
[2023-10-19 07:30] LABS: HCT 38.7 % (39.0-53.0); HGB 12.6 gm/dL (13.0-17.5); MCH 34.7 pg (25.0-35.0); MCHC 32.6 g/dL (31.0-37.0); MCV 106.6 fL (80.0-100.0); Macrocytosis Moderate; Mean Platelet Volume 7.7; Platelet Count 200 k/uL (150-450); RBC 3.63 m/uL (4.30-5.90); RDW 14.9 % (11.5-15.5); WBC 7.8 k/uL (3.8-10.6)
[2023-10-19] MEDS: ALBUTEROL NEBULIZED 2.5 MG/3 ML INHALATION SCH ×3 (07:41→21:11)
[2023-10-19 07:55] LABS: ALT 57 U/L (4-49); AST 29 U/L (17-59); African American GFR (CKD) >90 (>60 ml/min/1.73 sqM); Albumin 3.2 g/dL (3.5-5.0); Alkaline Phosphatase 79 U/L (38-126); Anion Gap 6 mmol/L; Blood Urea Nitrogen 7 mg/dL (9-20); Calcium 8.5 mg/dL (8.4-10.2); Carbon Dioxide 27 mmol/L (22-30); Chloride 103 mmol/L (98-107); Glucose 97 mg/dL (74-99); Magnesium 1.9 mg/dL (1.6-2.3); Non-African American GFR(CKD) >90 (>60 ml/min/1.73 sqM); Potassium 3.5 mmol/L (3.5-5.1); Sodium 136 mmol/L (137-145); Total Bilirubin 0.5 mg/dL (0.2-1.3); Total Protein 6.1 g/dL (6.3-8.2)
[2023-10-19] MEDS: busPIRone HCl 5 MG TAB PO SCH ×2 (09:18→21:11)
[2023-10-19] MEDS: QUEtiapine 50 MG TAB PO SCH ×2 (09:18→16:49)
[2023-10-19] MEDS: FOLIC ACID 1 MG TAB PO SCH (09:18)
[2023-10-19] MEDS: THIAMINE 100 MG in SODIUM CHLORIDE 0.9% 50 ML IVPB SCH (09:18)
[2023-10-19] MEDS: MULTIVITAMINS, THERA 1 EACH TAB PO SCH (09:18)
[2023-10-19] MEDS: CITALOPRAM HYDROBROMIDE 20 MG TAB PO SCH (09:18)
[2023-10-19] MEDS: SIMETHICONE 80 MG CHEWABLE PO SCH ×4 (09:19→21:12)
[2023-10-19] MEDS: HEPARIN SODIUM,PORCINE 5,000 UNIT/ML 1 ML VIAL SQ SCH ×2 (09:19→21:12)
[2023-10-19] MEDS: cloNIDine HCL 0.1 MG TAB PO SCH ×3 (09:19→22:19)
[2023-10-19] MEDS ORDERED: POTASSIUM CHLORIDE ER 20 MEQ TAB.ER PO STA (10:33)
--- NOTE | 2023-10-19 10:33 | P.PN ---
Subjective Patient is seen for follow-up for hyponatremia. Currently maintained on normal saline at 50 mL an hour. Trying to increase oral intake. Sodium increased to 136 today. Objective - Vital Signs Vital signs: Vital Signs Temp 98.1 F 10/19/23 07:38 Pulse 108 H 10/19/23 07:53 Resp 22 10/19/23 07:38 BP 137/88 10/19/23 07:38 Pulse Ox 90 L 10/19/23 07:41 FiO2 50 10/15/23 04:00 Intake & Output 10/18/23 10/19/23 10/19/23 18:59 06:59 18:59 Intake Total 138 128 Output Total 1050 400 Balance -912 -400 128 Weight 60.5 kg Intake: IV 20 10 Invasive Line 2 10 Invasive Line 7 10 10 Oral 118 118 Output: Urine 700 400 Straight 350 Post Void Residual 350 Other: Voiding Method Urinal Urinal Urinal ABP, PAP, CO, CI - Last Documented Arterial Blood Pressure 178/89 - Exam Patient is awake, comfortable, no acute distress Examination of the heart S1 and S2 Examination of the lungs bilateral breath sounds are heard Abdomen is soft nontender Examination of lower extremity shows no evidence of edema - Labs CBC & Chem 7: 10/19/23 06:57 10/19/23 06:57 Labs: Abnormal Lab Results - Last 24 Hours (Table) 10/18/23 10/19/23 10/19/23 Range/Units 12:45 06:57 06:57 RBC 3.63 L (4.30-5.90) m/uL Hgb 12.6 L (13.0-17.5) gm/dL Hct 38.7 L (39.0-53.0) % MCV 106.6 H (80.0-100.0) fL Sodium 132 L 136 L (137-145) mmol/L Carbon Dioxide 21 L (22-30) mmol/L BUN 8 L 7 L (9-20) mg/dL Creatinine 0.40 L 0.43 L (0.66-1.25) mg/dL Calcium 8.2 L (8.4-10.2) mg/dL ALT 57 H (4-49) U/L Total Protein 6.1 L (6.3-8.2) g/dL Albumin 3.2 L (3.5-5.0) g/dL Assessment and Plan Assessment: 1. Hypovolemic hyponatremia improved with IV fluids. Sodium level 121 on admission and up to 132 this morning. Urine sodium 38 and urine osmolality 197. TSH normal. 2. Alcohol abuse. 3. Acute hypoxic respiratory failure. 4. Pneumonia on antibiotics. 5. Hypokalemia from poor intake. Replaced. Improved. 6. Chronic diastolic CHF with severe tricuspid regurgitation and pulmonary hypertension. Plan: Increase oral intake Discontinue IV fluids DC fluid restriction Replace potassium.
[2023-10-19] MEDS ORDERED: LACTULOSE 20 GM/30 ML CUP PO PRN (10:55)
--- NOTE | 2023-10-19 11:00 | P.PN ---
Subjective Progress Note Date: 10/19/23 Patient is a 63-year-old male with known EtOH dependency, chronic back pain, pulmonary fibrosis home O2 dependent on 3 L, and multiple other comorbid conditions who presented to the emergency department due to alcohol intoxication. In the ER he underwent extensive evaluation. Chest x-ray showed multilobar pneumonia. Initial vitals were remarkable for a pulse of 113 and an O2 sat of 85% on room air. Initial labs were remarkable for sodium 121, carbon dioxide 21, lactic acid 2.7, AST 222, ALT 331, and BNP of 4020. Influenza A/B/RSV/COVID-19 testing was negative. Serum alcohol was elevated at 265. Patient was subsequently admitted. He was started on CIWA protocol, ceftriaxone, and Zithromax. Pulmonary was consulted as well as nephrology. He was subsequently started on scheduled Librium to help with his DTs. He then required the addition of Catapres. His troponin did elevate to 0.045 and cardiology was consulted. He underwent echocardiogram which showed severe pulmonary hypertension with right ventricular dilatation and an RVSP of greater than 60 with severe tricuspid regurgitation and left ventricular ejection fraction of 55%. Patient seen and examined at bedside. Reports some shortness of breath but at his baseline. He still feels extremely weak. Vital signs reviewed General: Nontoxic, no acute distress, appears at stated age Cardiovascular: S1S2 reg, no murmur Lungs: Bilateral rhonchi , no accessory muscle use Abdominal: Soft, nontender to palpation, no guarding Ext: No gross muscle atrophy, no edema b/l lower extremities, no contractures Neuro: CN II-XI grossly intact, no focal neuro deficits Psych: Alert, oriented, appropriate affect Assessment/Plan: Acute on chronic hypoxemic respiratory failure Chronic interstitial pulmonary fibrosis Pneumonia, possible aspiration vs community acquired Severe pulmonary hypertension - Zithromax completed - Rocephin 2 grams IVPB D # 6/ -Pulmonary n following -Patient is on 3 L of oxygen which is consistent with patient's use at home Constipation -Lactulose 20 twice daily as needed Alcohol dependence with alcohol withdrawal syndrome Transaminitis, likely due to EtOH abuse, resolving Thrombocytopenia likely due to alcohol abuse, resolved -continue tapering Librium, on 10 twice daily -Also on clonidine 0.1 mg p.o. 3 times daily, which needs to be tapered -Continue with CIWA protocol and appropriate Ativan dosing for scoring -Thiamine 100 mg IV piggyback daily, folic acid 1 mg daily - repeat CBC in AM Hyponatremia -Nephrology note reviewed, increase oral intake, discontinue IV fluids, discontinue fluid restriction, replace potassium Lactic acidosis, resolved Generalized anxiety disorder Depression BuSpar 7.5 twice daily Citalopram 40 daily -Seroquel 50 twice daily, 100 nightly Imaging: No new imaging Data Review: Hemoglobin 12.6, platelet 200, sodium 136, creatinine 0.43 DVT prophylaxis: Heparin Anticipated discharge date: in 24-[address]: home with home health VS SNF Objective - Vital Signs Vital signs: Vital Signs Temp 98.1 F 10/19/23 07:38 Pulse 108 H 10/19/23 07:53 Resp 22 10/19/23 07:38 BP 137/88 10/19/23 07:38 Pulse Ox 90 L 10/19/23 07:41 FiO2 50 10/15/23 04:00 Intake & Output 10/18/23 10/19/23 10/19/23 18:59 06:59 18:59 Intake Total 138 128 Output Total 1050 400 Balance -912 -400 128 Weight 60.5 kg Intake: IV 20 10 Invasive Line 2 10 Invasive Line 7 10 10 Oral 118 118 Output: Urine 700 400 Straight 350 Post Void Residual 350 Other: Voiding Method Urinal Urinal Urinal ABP, PAP, CO, CI - Last Documented Arterial Blood Pressure 178/89 - Labs CBC & Chem 7: 10/19/23 06:57 10/19/23 06:57 Labs: Abnormal Lab Results - Last 24 Hours (Table) 10/18/23 10/19/23 10/19/23 Range/Units 12:45 06:57 06:57 RBC 3.63 L (4.30-5.90) m/uL Hgb 12.6 L (13.0-17.5) gm/dL Hct 38.7 L (39.0-53.0) % MCV 106.6 H (80.0-100.0) fL Sodium 132 L 136 L (137-145) mmol/L Carbon Dioxide 21 L (22-30) mmol/L BUN 8 L 7 L (9-20) mg/dL Creatinine 0.40 L 0.43 L (0.66-1.25) mg/dL Calcium 8.2 L (8.4-10.2) mg/dL ALT 57 H (4-49) U/L Total Protein 6.1 L (6.3-8.2) g/dL Albumin 3.2 L (3.5-5.0) g/dL
--- NOTE | 2023-10-19 13:15 | P.PN ---
Subjective Progress Note Date: 10/19/23 Principal diagnosis: Acute on chronic hypoxic respiratory failure secondary to idiopathic pulmonary fibrosis and possible right diaphragm paralysis with restrictive lung disease This is a 63-year-old male patient with advanced pulmonary fibrosis. The patient has IPF and currently is on Ofev and he has significant restrictive lung disease in FVC of 45% of predicted. Is also oxygen dependent and utilizes 3 L of O2 nasal cannula. The patient also has history of excessive alcohol consumption. He drinks alcohol excessively around 7 beers a day and he also drinks a fifth of peppermint schnapps every day. The patient presented to the hospital because of worsening shortness of breath, increased cough and congestion. No reported fever. No reported chest pain. In the emergency department, the chest x-ray was consistent with pulmonary fibrosis addition to patchy bilateral pulmonary infiltrates more so on the lung bases. The patient has chronic elevation of the right hemidiaphragm. Upon arrival, his alcohol level was quite elevated at 265. Subsequently, he was brought into the intensive care unit placed on a 50% Ventimask and the patient is having ongoing confusion and restlessness and agitation. There was obvious concern that the patient was going into delirium related to alcohol withdrawal and the patient was started on Precedex. Currently Precedex is running at 0.4 mcg/kg/m. His blood work shows a WBC count of 14.3 with a hemoglobin of 15 and a platelet count of 149. The blood gas showed a pH of 7.48 with a pCO2 of 35 and pO2 of 76 and this was identified to 50%. Sodium level is at 127. Lactic acid level is at 3.6. Troponins are 0.045. The patient is currently on IV fluids of normal saline at rate of 100 mL an hour. His LFTs are showing an AST of 175, AST of 322, and the initial troponin was at 0.045. Echocardiogram was in progress. M eanwhile, the patient was also covered with broad-spectrum antibiotics. The patient is currently on a combination of Rocephin and Zithromax. Mentation is altered. Neurologic exam is nonfocal. On 10/15/2023, the patient is being seen for a follow-up. Is currently on a 40% Ventimask. Breathing has improved and breathing is less labored compared to yesterday. In same time, the patient was invading tremens and the patient was treated with Precedex. This morning, Precedex is running at 0.8 microvascular kilogram per minutes. The patient is also on IV fluids with normal saline at rate of 75 mL an hour. He is responsive. Is, comfortable. Is able to follow simple commands and have regular conversation. No significant agitation. He reports that his breathing is improved. He remains on Rocephin and Zithromax. He remains on bronchodilators. In terms of his blood work, his sodium level is up to 129, BUN is 11 with a creatinine of 0.6 and a potassium level is at 3.6. The white cell cause of 9.2 with a hemoglobin of 12.9. His pro calcitonin level was at 0.05. No other significant events overnight. The triple-lumen catheter was removed as the catheter was noted to be in his neck. He has adequate IV access for now. He is also on Lovenox portably prophylaxis. 10/16/2023, the patient is on 2 L of oxygen by nasal cannula. Doing well. Communicating. No measures to distress at rest. Is known to have advanced IPF and has chronic hypoxic respiratory failure. Oxygen is improved and the patient is back to his 2 L of O2 nasal cannula. At the same time, his being treated for delirium tremens secondary to alcohol withdrawal. Precedex was being titrated and the patient is currently on 0.2 mcg/kg/h. He has arousable. Is following simple commands. He is lethargic yet he seems to be appropriate is aware that he is in the hospital. He is aware of the date and time. echoes of 8.5, hemoglobin 11.7, platelets of 142, BUN is at 40 with a creatinine of 0.6 and a sodium level is at 134. Potassium level has been replaced and it's up to 4.0. Remains on Rocephin. Completed course of Zithromax. Remains on Lovenox for DVT prophylaxis. Is taking Seroquel 50 mg at bedtime. He remains on thiamine. IV fluids are at the rate of 50 mL an hour of normal saline. 10/17/2023, patient remains, in the ICU, he is on 3 L nasal cannula, remains on Precedex at 0.8 mcg/kg/h remains on IV fluid at 50 mL per hour intermittently receiving morphine and Ativan, remains on the CIWA protocol, patient is comfortable, does not seem to be in distress. Normally the patient drinks over 7 beers a day. He is known to have history of IPF and he is maintained on ofev, his pulmonary fibrosis was never tissue diagnosis,patient is on Lovenox and ceftriaxone. WBC count is 8.4 hemoglobin is 11.7 basic metabolic profile is normal and renal profile is normal, blood cultures are negative since admission. Patient remains on thiamine, Reevaluated today on 10/18/2023,Remains on 3 nasal cannula with O2 sats of 96%, patient continues to have chronic shortness of breath, intermittent cough, planing of mostly back pain, which is a chronic issue for the patient. Pulmonary [place] he is slightly better, but considering his baseline pulmonary fibrosis and chronic hypoxic respiratory failure, I doubt the patient will actually feel a significant relief in his pulmonary status overall. Continues to have crackles on physical examination bilaterally. But overall the patient seems to be comfortable on nasal cannula, and not in distress. Labs today including basic metabolic profile noted to be unremarkable. Reevaluate today on 10/19/2023, patient is doing better, breathing easier, patient is asking to be discharged home, however his is at bedside, and she is concerned about his overall condition and the patient cannot do much of anything, he is mostly debilitated. animal services officer working on placement of the patient in a rehab facility, and that is in progress. Patient clearly has severe underlying interstitial lung disease/pulmonary fibrosis, he does have have history of alcoholism and he recovered from acute alcohol withdrawal quite nicely. Feeling better overall, breathing a bit easier, and not as agitated and restless. However the patient is generally weak and debilitated. WBC count today 7.8 hemoglobin 12.6 basic metabolic profile is normal and renal profile is normal. Objective - Vital Signs Vital signs: Vital Signs Temp 98.5 F 10/19/23 11:06 Pulse 108 H 10/19/23 12:12 Resp 22 10/19/23 11:06 BP 94/62 10/19/23 11:06 Pulse Ox 95 10/19/23 11:06 FiO2 50 10/15/23 04:00 Intake & Output 10/18/23 10/19/23 10/19/23 18:59 06:59 18:59 Intake Total 138 350 Output Total 1050 400 Balance -912 -400 350 Weight 60.5 kg Intake: IV 20 10 Invasive Line 2 10 Invasive Line 7 10 10 Oral 118 340 Output: Urine 700 400 Straight 350 Post Void Residual 350 Other: Voiding Method Urinal Urinal Urinal ABP, PAP, CO, CI - Last Documented Arterial Blood Pressure 178/89 - Exam Physical Exam: Revealed 63-year-old white male in no distress on 3 L nasal cannula Head: Atraumatic, normocephalic HEENT:[Neck is supple.] [No neck masses.] [No thyromegaly.] [No JVD.] Chest: [Velcro crackles noted at the bases. Persist, chronic Cardiac Exam: [Normal S1 and S2, no S3 gallop, no murmur.] Abdomen: [Soft, nontender, no megaly, no rebound, no guarding, normal bowel sounds.] Extremities: [Minimal clubbing, no edema, no cyanosis.] Neurological Exam: [No focal neurologic deficit.] Alert and oriented 3. Patient is generally weak and fatigued Psychiatric: Normal mood affect and normal mental status examination. Skin: No rashes. - Labs CBC & Chem 7: 10/19/23 06:57 10/19/23 06:57 Labs: Abnormal Lab Results - Last 24 Hours (Table) 10/18/23 10/19/23 10/19/23 Range/Units 12:45 06:57 06:57 RBC 3.63 L (4.30-5.90) m/uL Hgb 12.6 L (13.0-17.5) gm/dL Hct 38.7 L (39.0-53.0) % MCV 106.6 H (80.0-100.0) fL Sodium 132 L 136 L (137-145) mmol/L Carbon Dioxide 21 L (22-30) mmol/L BUN 8 L 7 L (9-20) mg/dL Creatinine 0.40 L 0.43 L (0.66-1.25) mg/dL Calcium 8.2 L (8.4-10.2) mg/dL ALT 57 H (4-49) U/L Total Protein 6.1 L (6.3-8.2) g/dL Albumin 3.2 L (3.5-5.0) g/dL Microbiology - Last 24 Hours (Table) 10/14/23 02:00 Blood Culture - Final Blood 10/14/23 02:15 Blood Culture - Final Blood Assessment and Plan Assessment: Impression: Acute on chronic hypoxic respiratory failure secondary to idiopathic pulmonary fibrosis Chronic hypoxic respiratory failure usually on home O2 at 3 L/m Idiopathic pulmonary fibrosis, maintained on ofev History of alcoholism Acute alcohol withdrawal Hyperchloremic hypernatremia Mild transaminitis related to alcoholism History of PEA cardiac arrest Generalized anxiety disorder Recommendation: Continue oxygen and titrate accordingly Continue CIWA protocol. Transition to oral antibiotics Consider discharge planning/placement in rehab facility/ECF Continue GI and DVT prophylaxis. Pneumonia could not be entirely ruled out. Difficult to tell whether the patient has underlying pneumonia based on his pulmonary fibrosis Consider discharge planning to ECF Updated his on his condition at bedside Overall long-term prognosis is definitely poor and guarded. Time with Patient: Less than 30
[2023-10-19] MEDS: QUEtiapine 100 MG TAB PO SCH (21:12)
[2023-10-20] MEDS: MORPHINE SULFATE 4 MG/ML SYRINGE IVP PRN ×2 (04:53→09:19)
[2023-10-20] MEDS: LORazepam 2 MG/ML INJ IV PRN (06:24)
[2023-10-20 08:11] LABS: African American GFR (CKD) >90 (>60 ml/min/1.73 sqM); Anion Gap 6 mmol/L; Blood Urea Nitrogen 8 mg/dL (9-20); Calcium 8.5 mg/dL (8.4-10.2); Carbon Dioxide 28 mmol/L (22-30); Chloride 103 mmol/L (98-107); Glucose 98 mg/dL (74-99); Non-African American GFR(CKD) >90 (>60 ml/min/1.73 sqM); Sodium 137 mmol/L (137-145)
[2023-10-20] MEDS: SIMETHICONE 80 MG CHEWABLE PO SCH ×4 (08:15→22:29)
[2023-10-20] MEDS: CITALOPRAM HYDROBROMIDE 20 MG TAB PO SCH (08:15)
[2023-10-20] MEDS: busPIRone HCl 5 MG TAB PO SCH ×2 (08:15→22:28)
[2023-10-20] MEDS: QUEtiapine 50 MG TAB PO SCH ×2 (08:16→22:22)
[2023-10-20] MEDS: HEPARIN SODIUM,PORCINE 5,000 UNIT/ML 1 ML VIAL SQ SCH ×2 (08:16→22:28)
[2023-10-20] MEDS: MULTIVITAMINS, THERA 1 EACH TAB PO SCH (08:16)
[2023-10-20] MEDS: FOLIC ACID 1 MG TAB PO SCH (08:16)
[2023-10-20] MEDS: cloNIDine HCL 0.1 MG TAB PO SCH ×3 (08:16→22:30)
[2023-10-20] MEDS: THIAMINE 100 MG in SODIUM CHLORIDE 0.9% 50 ML IVPB SCH (08:17)
[2023-10-20] MEDS: ALBUTEROL NEBULIZED 2.5 MG/3 ML INHALATION SCH ×3 (09:25→21:27)
[2023-10-20] MEDS: HYDROcodone/APAP 5-325MG 1 EACH TAB PO PRN ×2 (12:17→21:19)
--- NOTE | 2023-10-20 13:20 | P.PN ---
Subjective Progress Note Date: 10/20/23 Patient is a 63-year-old male with known EtOH dependency, chronic back pain, pulmonary fibrosis home O2 dependent on 3 L, and multiple other comorbid conditions who presented to the emergency department due to alcohol intoxication. In the ER he underwent extensive evaluation. Chest x-ray showed multilobar pneumonia. Initial vitals were remarkable for a pulse of 113 and an O2 sat of 85% on room air. Initial labs were remarkable for sodium 121, carbon dioxide 21, lactic acid 2.7, AST 222, ALT 331, and BNP of 4020. Influenza A/B/RSV/COVID-19 testing was negative. Serum alcohol was elevated at 265. Patient was subsequently admitted. He was started on CIWA protocol, ceftriaxone, and Zithromax. Pulmonary was consulted as well as nephrology. He was subsequently started on scheduled Librium to help with his DTs. He then required the addition of Catapres. His troponin did elevate to 0.045 and cardiology was consulted. He underwent echocardiogram which showed severe pulmonary hypertension with right ventricular dilatation and an RVSP of greater than 60 with severe tricuspid regurgitation and left ventricular ejection fraction of 55%. Patient pending discharge to rehab facility Patient seen and examined at bedside. Reports some shortness of breath but at his baseline. Some productive cough as well. He still feels extremely weak. Vital signs reviewed General: Nontoxic, no acute distress, appears at stated age Cardiovascular: S1S2 reg, no murmur Lungs: Bilateral rhonchi , no accessory muscle use Abdominal: Soft, nontender to palpation, no guarding Ext: No gross muscle atrophy, no edema b/l lower extremities, no contractures Neuro: CN II-XI grossly intact, no focal neuro deficits Psych: Alert, oriented, appropriate affect Assessment/Plan: Acute on chronic hypoxemic respiratory failure Chronic interstitial pulmonary fibrosis Pneumonia, possible aspiration vs community acquired Severe pulmonary hypertension - Zithromax and Rocephin completed -Discussed management with pulmonology, continue current management -Patient is on 3 L of oxygen which is consistent with patient's use at home Constipation -Lactulose 20 twice daily as needed Alcohol dependence with alcohol withdrawal syndrome Transaminitis, likely due to EtOH abuse, resolving Thrombocytopenia likely due to alcohol abuse, resolved -continue tapering Librium, on 10 daily -clonidine 0.1 mg decreased to twice daily -Continue with CIWA protocol and appropriate Ativan dosing for scoring, monitor for sedation -Thiamine 100 mg IV piggyback daily, folic acid 1 mg daily - repeat CBC in AM Generalized back pain -Discontinue IV morphine, started on [place] 5 as needed Hyponatremia, resolved -Nephrology following, increase oral intake, discontinue IV fluids, discontinue fluid restriction, replace potassium Lactic acidosis, resolved Generalized anxiety disorder Depression BuSpar 7.5 twice daily Citalopram 40 daily -Seroquel 50 twice daily, 100 nightly Imaging: No new imaging Data Review: Sodium 137, potassium 4, creatinine 0.49 DVT prophylaxis: Heparin Anticipated discharge date: in 24-[address]: Rehab Objective - Vital Signs Vital signs: Vital Signs Temp 98.8 F 10/20/23 11:27 Pulse 90 10/20/23 12:50 Resp 19 10/20/23 12:50 BP 104/66 10/20/23 11:27 Pulse Ox 96 10/20/23 11:27 FiO2 50 10/15/23 04:00 Intake & Output 10/19/23 10/20/23 10/20/23 18:59 06:59 18:59 Intake Total 360 135 110 Output Total 700 Balance -340 135 110 Intake: IV 20 13 Invasive Line 2 10 10 Invasive Line 7 10 3 Oral 340 122 110 Output: Urine 700 Other: Voiding Method Urinal Urinal # Voids 2 ABP, PAP, CO, CI - Last Documented Arterial Blood Pressure 178/89 - Labs CBC & Chem 7: 10/19/23 06:57 10/20/23 06:36 Labs: Abnormal Lab Results - Last 24 Hours (Table) 10/20/23 Range/Units 06:36 BUN 8 L (9-20) mg/dL Creatinine 0.49 L (0.66-1.25) mg/dL Microbiology - Last 24 Hours (Table) 10/14/23 02:00 Blood Culture - Final Blood 10/14/23 02:15 Blood Culture - Final Blood
--- NOTE | 2023-10-20 16:38 | P.PN ---
Subjective Progress Note Date: 10/20/23 Principal diagnosis: Acute on chronic hypoxic respiratory failure secondary to idiopathic pulmonary fibrosis and possible right diaphragm paralysis with restrictive lung disease This is a 63-year-old male patient with advanced pulmonary fibrosis. The patient has IPF and currently is on Ofev and he has significant restrictive lung disease in FVC of 45% of predicted. Is also oxygen dependent and utilizes 3 L of O2 nasal cannula. The patient also has history of excessive alcohol consumption. He drinks alcohol excessively around 7 beers a day and he also drinks a fifth of peppermint schnapps every day. The patient presented to the hospital because of worsening shortness of breath, increased cough and congestion. No reported fever. No reported chest pain. In the emergency department, the chest x-ray was consistent with pulmonary fibrosis addition to patchy bilateral pulmonary infiltrates more so on the lung bases. The patient has chronic elevation of the right hemidiaphragm. Upon arrival, his alcohol level was quite elevated at 265. Subsequently, he was brought into the intensive care unit placed on a 50% Ventimask and the patient is having ongoing confusion and restlessness and agitation. There was obvious concern that the patient was going into delirium related to alcohol withdrawal and the patient was started on Precedex. Currently Precedex is running at 0.4 mcg/kg/m. His blood work shows a WBC count of 14.3 with a hemoglobin of 15 and a platelet count of 149. The blood gas showed a pH of 7.48 with a pCO2 of 35 and pO2 of 76 and this was identified to 50%. Sodium level is at 127. Lactic acid level is at 3.6. Troponins are 0.045. The patient is currently on IV fluids of normal saline at rate of 100 mL an hour. His LFTs are showing an AST of 175, AST of 322, and the initial troponin was at 0.045. Echocardiogram was in progress. M eanwhile, the patient was also covered with broad-spectrum antibiotics. The patient is currently on a combination of Rocephin and Zithromax. Mentation is altered. Neurologic exam is nonfocal. On 10/15/2023, the patient is being seen for a follow-up. Is currently on a 40% Ventimask. Breathing has improved and breathing is less labored compared to yesterday. In same time, the patient was invading tremens and the patient was treated with Precedex. This morning, Precedex is running at 0.8 microvascular kilogram per minutes. The patient is also on IV fluids with normal saline at rate of 75 mL an hour. He is responsive. Is, comfortable. Is able to follow simple commands and have regular conversation. No significant agitation. He reports that his breathing is improved. He remains on Rocephin and Zithromax. He remains on bronchodilators. In terms of his blood work, his sodium level is up to 129, BUN is 11 with a creatinine of 0.6 and a potassium level is at 3.6. The white cell cause of 9.2 with a hemoglobin of 12.9. His pro calcitonin level was at 0.05. No other significant events overnight. The triple-lumen catheter was removed as the catheter was noted to be in his neck. He has adequate IV access for now. He is also on Lovenox portably prophylaxis. 10/16/2023, the patient is on 2 L of oxygen by nasal cannula. Doing well. Communicating. No measures to distress at rest. Is known to have advanced IPF and has chronic hypoxic respiratory failure. Oxygen is improved and the patient is back to his 2 L of O2 nasal cannula. At the same time, his being treated for delirium tremens secondary to alcohol withdrawal. Precedex was being titrated and the patient is currently on 0.2 mcg/kg/h. He has arousable. Is following simple commands. He is lethargic yet he seems to be appropriate is aware that he is in the hospital. He is aware of the date and time. echoes of 8.5, hemoglobin 11.7, platelets of 142, BUN is at 40 with a creatinine of 0.6 and a sodium level is at 134. Potassium level has been replaced and it's up to 4.0. Remains on Rocephin. Completed course of Zithromax. Remains on Lovenox for DVT prophylaxis. Is taking Seroquel 50 mg at bedtime. He remains on thiamine. IV fluids are at the rate of 50 mL an hour of normal saline. 10/17/2023, patient remains, in the ICU, he is on 3 L nasal cannula, remains on Precedex at 0.8 mcg/kg/h remains on IV fluid at 50 mL per hour intermittently receiving morphine and Ativan, remains on the CIWA protocol, patient is comfortable, does not seem to be in distress. Normally the patient drinks over 7 beers a day. He is known to have history of IPF and he is maintained on ofev, his pulmonary fibrosis was never tissue diagnosis,patient is on Lovenox and ceftriaxone. WBC count is 8.4 hemoglobin is 11.7 basic metabolic profile is normal and renal profile is normal, blood cultures are negative since admission. Patient remains on thiamine, Reevaluated today on 10/18/2023,Remains on 3 nasal cannula with O2 sats of 96%, patient continues to have chronic shortness of breath, intermittent cough, planing of mostly back pain, which is a chronic issue for the patient. Pulmonary [place] he is slightly better, but considering his baseline pulmonary fibrosis and chronic hypoxic respiratory failure, I doubt the patient will actually feel a significant relief in his pulmonary status overall. Continues to have crackles on physical examination bilaterally. But overall the patient seems to be comfortable on nasal cannula, and not in distress. Labs today including basic metabolic profile noted to be unremarkable. Reevaluate today on 10/19/2023, patient is doing better, breathing easier, patient is asking to be discharged home, however his is at bedside, and she is concerned about his overall condition and the patient cannot do much of anything, he is mostly debilitated. director of convention services working on placement of the patient in a rehab facility, and that is in progress. Patient clearly has severe underlying interstitial lung disease/pulmonary fibrosis, he does have have history of alcoholism and he recovered from acute alcohol withdrawal quite nicely. Feeling better overall, breathing a bit easier, and not as agitated and restless. However the patient is generally weak and debilitated. WBC count today 7.8 hemoglobin 12.6 basic metabolic profile is normal and renal profile is normal. Patient was reevaluated today on 10/20/2022, patient is doing relatively well, remains on oxygen via nasal cannula at 3 L/min patient is being considered for possible discharge to rehab facility. Patient is generally ill and quite weak. Basic metabolic profile today is normal, renal profile is normal, patient is not in any distress, he does have intermittent cough, and shortness of breath on exertion/chronic Objective - Vital Signs Vital signs: Vital Signs Temp 97.8 F 10/20/23 16:09 Pulse 89 10/20/23 16:09 Resp 20 10/20/23 16:09 BP 100/69 10/20/23 16:09 Pulse Ox 97 10/20/23 16:09 FiO2 50 10/15/23 04:00 Intake & Output 10/19/23 10/20/23 10/20/23 18:59 06:59 18:59 Intake Total 360 135 280 Output Total 700 Balance -340 135 280 Intake: IV 20 13 Invasive Line 2 10 10 Invasive Line 7 10 3 Intake, IV Titration 50 Amount Thiamine 100 mg In Sodium 50 Chloride 0.9% 50 ml @ 100 mls/hr IVPB DAILY [facility] Rx#:[id number] Oral 340 122 230 Output: Urine 700 Other: Voiding Method Urinal Urinal # Voids 2 ABP, PAP, CO, CI - Last Documented Arterial Blood Pressure 178/89 - Exam Physical Exam: Revealed 63-year-old white male in no distress on 3 L nasal debo thong Head: Atraumatic, normocephalic HEENT:[Neck is supple.] [No neck masses.] [No thyromegaly.] [No JVD.] Chest: [Velcro crackles noted at the bases. Persist, chronic Cardiac Exam: [Normal S1 and S2, no S3 gallop, no murmur.] Abdomen: [Soft, nontender, no megaly, no rebound, no guarding, normal bowel sounds.] Extremities: [Minimal clubbing, no edema, no cyanosis.] Neurological Exam: [No focal neurologic deficit.] Alert and oriented 3. Patient is generally weak and fatigued Psychiatric: Normal mood affect and normal mental status examination. Skin: No rashes. - Labs CBC & Chem 7: 10/19/23 06:57 10/20/23 06:36 Labs: Abnormal Lab Results - Last 24 Hours (Table) 10/20/23 Range/Units 06:36 BUN 8 L (9-20) mg/dL Creatinine 0.49 L (0.66-1.25) mg/dL Microbiology - Last 24 Hours (Table) 10/14/23 02:00 Blood Culture - Final Blood 10/14/23 02:15 Blood Culture - Final Blood Assessment and Plan Assessment: Impression: Acute on chronic hypoxic respiratory failure secondary to idiopathic pulmonary fibrosis Chronic hypoxic respiratory failure usually on home O2 at 3 L/m Idiopathic pulmonary fibrosis, maintained on ofev History of alcoholism Acute alcohol withdrawal Hyperchloremic hypernatremia Mild transaminitis related to alcoholism History of PEA cardiac arrest Generalized anxiety disorder Recommendation: Continue oxygen and titrate accordingly Continue CIWA protocol. Patient will definitely need placement in an ECF Continue GI and DVT prophylaxis. Pneumonia could not be entirely ruled out. Difficult to tell whether the patient has underlying pneumonia based on his pulmonary fibrosis Overall long-term prognosis is definitely poor and guarded. Time with Patient: Less than 30
[2023-10-20] MEDS: QUEtiapine 100 MG TAB PO SCH (22:28)
[2023-10-21] MEDS: HYDROcodone/APAP 5-325MG 1 EACH TAB PO PRN ×2 (03:44→09:46)
[2023-10-21] MEDS: ALBUTEROL NEBULIZED 2.5 MG/3 ML INHALATION SCH ×2 (08:42→12:37)
[2023-10-21] MEDS: HEPARIN SODIUM,PORCINE 5,000 UNIT/ML 1 ML VIAL SQ SCH (08:48)
[2023-10-21] MEDS: CITALOPRAM HYDROBROMIDE 20 MG TAB PO SCH (08:48)
[2023-10-21] MEDS: busPIRone HCl 5 MG TAB PO SCH (08:48)
[2023-10-21] MEDS: SIMETHICONE 80 MG CHEWABLE PO SCH ×3 (08:48→15:21)
[2023-10-21] MEDS: cloNIDine HCL 0.1 MG TAB PO SCH (08:48)
[2023-10-21] MEDS: MULTIVITAMINS, THERA 1 EACH TAB PO SCH (08:49)
[2023-10-21] MEDS: FOLIC ACID 1 MG TAB PO SCH (08:49)
[2023-10-21] MEDS: QUEtiapine 50 MG TAB PO SCH ×2 (08:49→15:21)
[2023-10-21] MEDS: THIAMINE 100 MG in SODIUM CHLORIDE 0.9% 50 ML IVPB SCH (09:46)
[2023-10-21 12:40] VITALS: BP 99/66; RESP 16; TEMP 98
[2023-10-21 12:41] VITALS: PULSE 84
--- NOTE | 2023-10-21 12:52 | P.DS ---
Providers Date of admission: 10/14/23 01:37 Expected date of discharge: 10/21/23 Attending physician: Carolyn Perkins MD Consults: 10/14/23 01:37 Consult Physician Routine Consulting Provider: Ying Nugent Consult Reason/Comments: Your patient Do you want consulting provider notified?: Yes 10/14/23 03:32 Consult Physician Urgent Consulting Provider: Rui Segovia Consult Reason/Comments: hypoNa Do you want consulting provider notified?: Yes [facility] care [facility] Course: Discharge Diagnosis: Acute on chronic hypoxemic respiratory failure Chronic interstitial pulmonary fibrosis Multifocal bacterial pneumonia Severe pulmonary hypertension Constipation Alcohol dependence with alcohol withdrawal syndrome Transaminitis, likely due to EtOH abuse Thrombocytopenia likely due to alcohol abuse Generalized back pain Hyponatremia Lactic acidosis Generalized anxiety disorder Depression Hospital Course: Patient is a 63-year-old male with known EtOH dependency, chronic back pain, pulmonary fibrosis home O2 dependent on 3 L, and multiple other comorbid conditions who presented to the emergency department due to alcohol intoxication. In the ER he underwent extensive evaluation. Chest x-ray showed multilobar pneumonia. Initial vitals were remarkable for a pulse of 113 and an O2 sat of 85% on room air. Initial labs were remarkable for sodium 121, carbon dioxide 21, lactic acid 2.7, AST 222, ALT 331, and BNP of 4020. Influenza A/B/RSV/COVID-19 testing was negative. Serum alcohol was elevated at 265. Patient was subsequently admitted. He was started on CIWA protocol, ceftriaxone, and Zithromax. Pulmonary was consulted as well as nephrology. He was subsequently started on scheduled Librium to help with his DTs. He then required the addition of Catapres. His troponin did elevate to 0.045 and cardiology was consulted. He underwent echocardiogram which showed severe pulmonary hypertension with right ventricular dilatation and an RVSP of greater than 60 with severe tricuspid regurgitation and left ventricular ejection fraction of 55%. Patient is now at baseline. Respiratory function stable. Completed course of antibiotics. Has severe generalized weakness, patient needs rehab. Patient seen and examined at bedside. Vital signs reviewed and stable. General: Nontoxic, no acute distress, appears at stated age Cardiovascular: S1S2 reg, no murmur Lungs: Bilateral rhonchi , no accessory muscle use Abdominal: Soft, nontender to palpation, no guarding Ext: No gross muscle atrophy, no edema b/l lower extremities, no contractures Neuro: CN II-XI grossly intact, no focal neuro deficits Psych: Alert, oriented, appropriate affect A total of 33 minutes of time were spent preparing this complex discharge summary. Patient was discharged on 10/21/23 at 1245. Patient Condition at Discharge: Stable Plan - Discharge Summary Discharge Rx Participant: Yes New Discharge Prescriptions: New Multivitamins, Thera [Multivitamin (formulary)] 1 each PO DAILY tab Simethicone Chew [Mylicon Chew] 40 mg PO QID tab Albuterol Nebulized [Ventolin Nebulized] 2.5 mg INHALATION RT-TID ml Lactulose [Cephulac] 20 gm PO BID PRN ml PRN Reason: Constipation HYDROcodone/APAP 5-325MG [[place]ross 5-325] 1 each PO Q6HR PRN #7 tab PRN Reason: Pain Thiamine [Vitamin B-1] 100 mg PO DAILY #7 tablet Continue QUEtiapine [SEROquel] 50 mg PO AC-BID@0800,1700 Folic Acid 1 mg PO DAILY #30 tab Mupirocin 2% Oint [Bactroban 2% Oint] 1 applic TOPICAL Q2D Citalopram Hydrobromide [CeleXA] 40 mg PO DAILY busPIRone HCL [Buspar] 7.5 mg PO BID QUEtiapine [SEROquel] 100 mg PO HS Discharge Medication List Citalopram Hydrobromide [CeleXA] 40 mg PO DAILY 03/25/21 [History] QUEtiapine [SEROquel] 50 mg PO AC-BID@0800,1700 03/25/21 [History] Folic Acid 1 mg PO DAILY #30 tab 03/30/21 [Rx] Mupirocin 2% Oint [Bactroban 2% Oint] 1 applic TOPICAL Q2D 10/14/23 [History] busPIRone HCL [Buspar] 7.5 mg PO BID 10/14/23 [History] QUEtiapine [SEROquel] 100 mg PO HS 10/18/23 [History] Albuterol Nebulized [Ventolin Nebulized] 2.5 mg INHALATION RT-TID ml 10/21/23 [Rx] HYDROcodone/APAP 5-325MG [Glencross 5-325] 1 each PO Q6HR PRN #7 tab 10/21/23 [Rx] Lactulose [Cephulac] 20 gm PO BID PRN ml 10/21/23 [Rx] Multivitamins, Thera [Multivitamin (formulary)] 1 each PO DAILY tab 10/21/23 [Rx] Simethicone Chew [Mylicon Chew] 40 mg PO QID tab 10/21/23 [Rx] Thiamine [Vitamin B-1] 100 mg PO DAILY #7 tablet 10/21/23 [Rx] Follow up Appointment(s)/Referral(s): Amalia Cheney MD [STAFF PHYSICIAN] - 1 Week Femi Arambula MD [Medical Doctor] - 1 Week Brian Arzola DO [Primary Care Provider] - 1-2 days Patient Instructions/Handouts: Bacterial Pneumonia (DC), Abuse of Alcohol (DC), Alcohol Withdrawal (DC) Discharge/Stand Alone Forms: AA Meetings [place], Community Resources, Outpatient Counseling, Inp Substance Abuse Facilities Discharge Disposition: TRANSFER TO SNF/ECF
--- NOTE | 2023-10-21 16:03 | P.PN ---
Subjective Progress Note Date: 10/21/23 Principal diagnosis: Acute on chronic hypoxic respiratory failure secondary to idiopathic pulmonary fibrosis and possible right diaphragm paralysis with restrictive lung disease This is a 63-year-old male patient with advanced pulmonary fibrosis. The patient has IPF and currently is on Ofev and he has significant restrictive lung disease in FVC of 45% of predicted. Is also oxygen dependent and utilizes 3 L of O2 nasal cannula. The patient also has history of excessive alcohol consumption. He drinks alcohol excessively around 7 beers a day and he also drinks a fifth of peppermint schnapps every day. The patient presented to the hospital because of worsening shortness of breath, increased cough and congestion. No reported fever. No reported chest pain. In the emergency department, the chest x-ray was consistent with pulmonary fibrosis addition to patchy bilateral pulmonary infiltrates more so on the lung bases. The patient has chronic elevation of the right hemidiaphragm. Upon arrival, his alcohol level was quite elevated at 265. Subsequently, he was brought into the intensive care unit placed on a 50% Ventimask and the patient is having ongoing confusion and restlessness and agitation. There was obvious concern that the patient was going into delirium related to alcohol withdrawal and the patient was started on Precedex. Currently Precedex is running at 0.4 mcg/kg/m. His blood work shows a WBC count of 14.3 with a hemoglobin of 15 and a platelet count of 149. The blood gas showed a pH of 7.48 with a pCO2 of 35 and pO2 of 76 and this was identified to 50%. Sodium level is at 127. Lactic acid level is at 3.6. Troponins are 0.045. The patient is currently on IV fluids of normal saline at rate of 100 mL an hour. His LFTs are showing an AST of 175, AST of 322, and the initial troponin was at 0.045. Echocardiogram was in progress. M eanwhile, the patient was also covered with broad-spectrum antibiotics. The patient is currently on a combination of Rocephin and Zithromax. Mentation is altered. Neurologic exam is nonfocal. On 10/15/2023, the patient is being seen for a follow-up. Is currently on a 40% Ventimask. Breathing has improved and breathing is less labored compared to yesterday. In same time, the patient was invading tremens and the patient was treated with Precedex. This morning, Precedex is running at 0.8 microvascular kilogram per minutes. The patient is also on IV fluids with normal saline at rate of 75 mL an hour. He is responsive. Is, comfortable. Is able to follow simple commands and have regular conversation. No significant agitation. He reports that his breathing is improved. He remains on Rocephin and Zithromax. He remains on bronchodilators. In terms of his blood work, his sodium level is up to 129, BUN is 11 with a creatinine of 0.6 and a potassium level is at 3.6. The white cell cause of 9.2 with a hemoglobin of 12.9. His pro calcitonin level was at 0.05. No other significant events overnight. The triple-lumen catheter was removed as the catheter was noted to be in his neck. He has adequate IV access for now. He is also on Lovenox portably prophylaxis. 10/16/2023, the patient is on 2 L of oxygen by nasal cannula. Doing well. Communicating. No measures to distress at rest. Is known to have advanced IPF and has chronic hypoxic respiratory failure. Oxygen is improved and the patient is back to his 2 L of O2 nasal cannula. At the same time, his being treated for delirium tremens secondary to alcohol withdrawal. Precedex was being titrated and the patient is currently on 0.2 mcg/kg/h. He has arousable. Is following simple commands. He is lethargic yet he seems to be appropriate is aware that he is in the hospital. He is aware of the date and time. echoes of 8.5, hemoglobin 11.7, platelets of 142, BUN is at 40 with a creatinine of 0.6 and a sodium level is at 134. Potassium level has been replaced and it's up to 4.0. Remains on Rocephin. Completed course of Zithromax. Remains on Lovenox for DVT prophylaxis. Is taking Seroquel 50 mg at bedtime. He remains on thiamine. IV fluids are at the rate of 50 mL an hour of normal saline. 10/17/2023, patient remains, in the ICU, he is on 3 L nasal cannula, remains on Precedex at 0.8 mcg/kg/h remains on IV fluid at 50 mL per hour intermittently receiving morphine and Ativan, remains on the CIWA protocol, patient is comfortable, does not seem to be in distress. Normally the patient drinks over 7 beers a day. He is known to have history of IPF and he is maintained on ofev, his pulmonary fibrosis was never tissue diagnosis,patient is on Lovenox and ceftriaxone. WBC count is 8.4 hemoglobin is 11.7 basic metabolic profile is normal and renal profile is normal, blood cultures are negative since admission. Patient remains on thiamine, Reevaluated today on 10/18/2023,Remains on 3 nasal cannula with O2 sats of 96%, patient continues to have chronic shortness of breath, intermittent cough, planing of mostly back pain, which is a chronic issue for the patient. Pulmonary [place] he is slightly better, but considering his baseline pulmonary fibrosis and chronic hypoxic respiratory failure, I doubt the patient will actually feel a significant relief in his pulmonary status overall. Continues to have crackles on physical examination bilaterally. But overall the patient seems to be comfortable on nasal cannula, and not in distress. Labs today including basic metabolic profile noted to be unremarkable. Reevaluate today on 10/19/2023, patient is doing better, breathing easier, patient is asking to be discharged home, however his is at bedside, and she is concerned about his overall condition and the patient cannot do much of anything, he is mostly debilitated. caseworker protective services working on placement of the patient in a rehab facility, and that is in progress. Patient clearly has severe underlying interstitial lung disease/pulmonary fibrosis, he does have have history of alcoholism and he recovered from acute alcohol withdrawal quite nicely. Feeling better overall, breathing a bit easier, and not as agitated and restless. However the patient is generally weak and debilitated. WBC count today 7.8 hemoglobin 12.6 basic metabolic profile is normal and renal profile is normal. Patient was reevaluated today on 10/20/2023 patient is doing relatively well, remains on oxygen via nasal cannula at 3 L/min patient is being considered for possible discharge to rehab facility. Patient is generally ill and quite weak. Basic metabolic profile today is normal, renal profile is normal, patient is not in any distress, he does have intermittent cough, and shortness of breath on exertion/chronic Reevaluated on 10/21/2023, patient is basically about the same, remains on 3 L nasal cannula not in any distress, continues to have intermittent cough, no fever no chills no hemoptysis, patient is waiting for potential placement. No labs were done today. Objective - Vital Signs Vital signs: Vital Signs Temp 98.0 F 10/21/23 12:13 Pulse 84 10/21/23 12:47 Resp 16 10/21/23 12:13 BP 99/66 10/21/23 12:13 Pulse Ox 99 10/21/23 12:13 FiO2 50 10/15/23 04:00 Intake & Output 10/20/23 10/21/23 10/21/23 18:59 06:59 18:59 Intake Total 280 190 Output Total 950 Balance 280 -950 190 Weight 60.5 kg Intake: IV 10 Invasive Line 7 10 Intake, IV Titration 50 Amount Thiamine 100 mg In Sodium 50 Chloride 0.9% 50 ml @ 100 mls/hr IVPB DAILY ИРИНА Rx#:[id number] Oral 230 180 Output: Urine 950 Other: Voiding Method Urinal Urinal # Voids 2 0 ABP, PAP, CO, CI - Last Documented Arterial Blood Pressure 178/89 - Exam Physical Exam: Revealed 63-year-old white male in no distress on 3 L nasal cannula Head: Atraumatic, normocephalic HEENT:[Neck is supple.] [No neck masses.] [No thyromegaly.] [No JVD.] Chest: [Velcro crackles noted at the bases. Persist, chronic Cardiac Exam: [Normal S1 and S2, no S3 gallop, no murmur.] Abdomen: [Soft, nontender, no megaly, no rebound, no guarding, normal bowel sounds.] Extremities: [Minimal clubbing, no edema, no cyanosis.] Neurological Exam: [No focal neurologic deficit.] Alert and oriented 3. Patient is generally weak and fatigued Psychiatric: Normal mood affect and normal mental status examination. Skin: No rashes. - Labs CBC & Chem 7: 10/19/23 06:57 10/20/23 06:36 Assessment and Plan Assessment: Impression: Acute on chronic hypoxic respiratory failure secondary to idiopathic pulmonary fibrosis Chronic hypoxic respiratory failure usually on home O2 at 3 L/m Idiopathic pulmonary fibrosis, maintained on ofev History of alcoholism Acute alcohol withdrawal Hyperchloremic hypernatremia Mild transaminitis related to alcoholism History of PEA cardiac arrest Generalized anxiety disorder Recommendation: Continue oxygen and titrate accordingly Continue plans for placement in ECF Continue GI and DVT prophylaxis. Will continue to follow while inpatient Overall long-term prognosis is definitely poor and guarded. Time with Patient: Less than 30
[2023-10-21] MEDS ORDERED: NYSTATIN 100,000 UNIT/GM POWD 15 GM TOPICAL SCH (21:00)
[2023-10-22] MEDS ORDERED: cloNIDine HCL 0.1 MG TAB PO SCH (09:00)
== END 2023-10-21 15:22 | DRG 177 ==
LOC: EC 22:56 → 5NMEDONC 10-14 01:37 → 2SICU 10-14 09:59 → 3SCARD 10-17 17:50
PROVIDERS: ADMIT Internal Medicine; ATTEND Internal Medicine
DX: J69.0 Pneumonitis due to inhalation of food and vomit (principal); I21.A1 Myocardial infarction type 2; J96.21 Acute and chronic respiratory failure with hypoxia; E87.20 Acidosis, unspecified; E87.1 Hypo-osmolality and hyponatremia; F10.231 Alcohol dependence with withdrawal delirium; I50.32 Chronic diastolic (congestive) heart failure; J15.9 Unspecified bacterial pneumonia; D69.59 Other secondary thrombocytopenia; E86.0 Dehydration; E86.1 Hypovolemia; E87.6 Hypokalemia; Z28.311 Partially vaccinated for COVID-19; Z11.52 Encounter for screening for COVID-19; Z86.74 Personal history of sudden cardiac arrest; Z99.81 Dependence on supplemental oxygen; E87.8 Other disorders of electrolyte and fluid balance, not elsewhere classified; J98.4 Other disorders of lung; J84.112 Idiopathic pulmonary fibrosis; I27.20 Pulmonary hypertension, unspecified; F10.229 Alcohol dependence with intoxication, unspecified; G83.9 Paralytic syndrome, unspecified; F32.A Depression, unspecified; F41.1 Generalized anxiety disorder; G89.29 Other chronic pain; I07.1 Rheumatic tricuspid insufficiency; K59.00 Constipation, unspecified; M41.9 Scoliosis, unspecified; M48.00 Spinal stenosis, site unspecified; Y90.8 Blood alcohol level of 240 mg/100 ml or more; Z79.899 Other long term (current) drug therapy; Z80.0 Family history of malignant neoplasm of digestive organs
CPT/HCPCS: 36415; 71045; 71046; 80048; 80053; 80320; 81003; 82570; 82805; 83605; 83735; 83880; 83930; 83935; 84132; 84145; 84295; 84300; 84443; 84484; 85025; 85027; 85610; 85730; 87040; 87636; 93005; 93306; 94640; 94760; 96361; 96365; 96375; 96376; 99285

== ENCOUNTER 2023-10-23 07:35 | Emergency (ER) | payer MEDICARE ==
[2023-10-23 08:13] VITALS: TEMP 97
[2023-10-23] MEDS ORDERED: NITROGLYCERIN OINT 1 INCH/GM PACKET TOPICAL STA (08:20)
[2023-10-23] MEDS ORDERED: ASPIRIN 81 MG PO STA (08:20)
[2023-10-23] MEDS ORDERED: LORazepam 1 MG TAB PO STA (08:20)
--- NOTE | 2023-10-23 08:23 | ED ---
General Adult HPI - General Chief complaint: Chest Pain Stated complaint: Chest pains Time Seen by Provider: 10/23/23 07:37 Source: patient, EMS, RN notes reviewed, old records reviewed Mode of arrival: EMS Limitations: no limitations - History of Present Illness Initial comments: Patient is a pleasant 63-year-old male presenting to the emergency department with concerns for chest discomfort. Onset of symptoms was middle of the night. Symptoms seem to worsen and then improved. Symptoms are mild at this time. Discomfort feels like an ache. There is some discomfort of his upper back as well. Patient does have history of similar symptoms around 10 times previously however no previous history of heart problems. Patient states he did have card iac arrest once however that was secondary to his chronic lung disease. Patient did have some associated dyspnea that has resolved. Patient admits to feeling anxious. - Related Data Home Medications Medication Instructions Recorded Confirmed Citalopram Hydrobromide [CeleXA] 40 mg PO DAILY 03/25/21 10/14/23 QUEtiapine [SEROquel] 50 mg PO AC-BID@0800,1700 03/25/21 10/18/23 Mupirocin 2% Oint [Bactroban 2% 1 applic TOPICAL Q2D 10/14/23 10/14/23 Oint] busPIRone HCL [Buspar] 7.5 mg PO BID 10/14/23 10/14/23 QUEtiapine [SEROquel] 100 mg PO HS 10/18/23 10/18/23 Previous Rx's Medication Instructions Recorded Folic Acid 1 mg PO DAILY #30 tab 03/30/21 Albuterol Nebulized [Ventolin 2.5 mg INHALATION RT-TID ml 10/21/23 Nebulized] HYDROcodone/APAP 5-325MG [Brickeys 1 each PO Q6HR PRN #7 tab 10/21/23 5-325] Lactulose [Cephulac] 20 gm PO BID PRN ml 10/21/23 Multivitamins, Thera [Multivitamin 1 each PO DAILY tab 10/21/23 (formulary)] Simethicone Chew [Mylicon Chew] 40 mg PO QID tab 10/21/23 Thiamine [Vitamin B-1] 100 mg PO DAILY #7 tablet 10/21/23 Allergies Allergy/AdvReac Type Severity Reaction Status Date / Time No Known Allergies Allergy Verified 10/23/23 07:57 Review of Systems ROS Statement: Those systems with pertinent positive or pertinent negative responses have been documented in the HPI. ROS Other: All systems not noted in ROS Statement are negative. Constitutional: Denies: fever Eyes: Denies: eye pain ENT: Denies: ear pain Respiratory: Reports: as per HPI. Denies: cough Cardiovascular: Reports: as per HPI, chest pain Endocrine: Denies: fatigue Gastrointestinal: Denies: abdominal pain Past Medical History Past Medical History: Musculoskeletal Disorder Additional Past Medical History / Comment(s): ETOH abuse, DTs, chronic low back pain/herniated discs/scoliosis/spinal stenosis, right shoulder, pulmonary fibrosis, Home O2 3L History of Any Multi-Drug Resistant Organisms: None Reported Past Surgical History: Orthopedic Surgery Additional Past Surgical History / Comment(s): R ankle fx with surgical repair- pin in and out, back injections at [facility]. Left knee Past Anesthesia/Blood Transfusion Reactions: No Reported Reaction Additional Past Anesthesia/Blood Transfusion Reaction / Comment(s): Pt has never received blood. Past Psychological History: Anxiety, Depression Smoking Status: Never smoker Past Alcohol Use History: Abuse, Daily, Heavy Past Drug Use History: None Reported - Past Family History Father Family Medical History: Dementia Additional Family Medical History / Comment(s): Father is . Mother Family Medical History: Cancer Additional Family Medical History / Comment(s): Mother at age 64yrs of pancreatic cancer. General Exam Limitations: no limitations General appearance: alert, in no apparent distress Head exam: Present: normocephalic Eye exam: Present: normal appearance Neck exam: Present: normal inspection Respiratory exam: Present: normal lung sounds bilaterally Cardiovascular Exam: Present: normal rhythm, tachycardia Expanded Peripheral pulses: 2+: Radial (R), Radial (L), Dorsalis Pedis (R), Dorsalis Pedis (L) GI/Abdominal exam: Present: soft. Absent: tenderness Extremities exam: Present: normal inspection. Absent: pedal edema, calf tenderness Neurological exam: Present: alert Psychiatric exam: Present: normal affect, normal mood Skin exam: Present: normal color Course Vital Signs 10/23/23 10/23/23 07:40 10:10 Temperature 97.0 F L Pulse Rate 116 H Pulse Rate [ 115 H Computer Help Desk Representative ] Respiratory 22 25 H Rate Blood Pressure 115/95 O2 Sat by Pulse 96 Oximetry EKG Findings - EKG Results: EKG: interpreted by ERMD, sinus rhythm, normal axis, normal QRS, normal ST/T EKG shows: tachycardia Medical Decision Making - Medical Decision Making Was pt. sent in by a medical professional or institution (, ANAYA, CREW DISPATCHER, urgent care, hospital, or correction...) When possible be specific @ -Patient was sent from nursing facility Did you speak to anyone other than the patient for history (EMS, parent, family, police, friend...)? What history was obtained from this source @ -No Did you review nursing and triage notes (agree or disagree)? Why? @ -I reviewed and agree with nursing and triage notes Were old charts reviewed (outside hosp., previous admission, EMS record, old EKG, old radiological studies, urgent care reports/EKG's, correction records)? Report findings @ -Previous admission reviewed. Nursing facility notes reviewed Differential Diagnosis (chest pain, altered mental status, abdominal pain women, abdominal pain men, vaginal bleeding, weakness, fever, dyspnea, syncope, headache, dizziness, GI bleed, back pain, seizure, CVA, palpatations, mental health, musculoskeletal)? @ -Not applicable EKG interpreted by me (3pts min.). @ -As above X-rays interpreted by me (1pt min.). @ -Interstitial changes CT interpreted by me (1pt min.). @ -Interstitial changes. No definitive pulmonary embolism U/S interpreted by me (1pt. min.). @ -None done What testing was considered but not performed or refused? (CT, X-rays, U/S, labs)? Why? @ -None What meds were considered but not given or refused? Why? @ -None Did you discuss the management of the patient with other professionals (professionals i.e. ANAYA Javed, CREW DISPATCHER, lab, RT, psych nurse, social worker palliative care, glass laminating operator, teacher, alumni relations officer, employment case manager)? Give summary @ -Case was discussed with Dr. Hermosillo who is familiar with this patient. Patient was recently admitted and evaluated for cardiac problems. He feels patient can be discharged back to nursing facility. Was smoking cessation discussed for >3mins.? @ -No Was critical care preformed (if so, how long)? @ -No Were there social determinants of health that impacted care today? How? (Homelessness, low income, unemployed, alcoholism, drug addiction, transportation, low edu. Level, literacy, decrease access to med. care, prison, rehab)? @ -No Was there de-escalation of care discussed even if they declined (Discuss DNR or withdrawal of care, Hospice)? DNR status @ -No What co-morbidities impacted this encounter? (DM, HTN, Smoking, COPD, CAD, Cancer, CVA, ARF, Chemo, Hep., AIDS, mental health diagnosis, sleep apnea, morbid obesity)? @ -None Was patient admitted / discharged? Hospital course, mention meds given and route, prescriptions, significant lab abnormalities, going to OR and other per tinent info. @ -Patient reevaluated and significantly improved with Ativan. Vital signs improved. Patient and family are updated on results. Patient has no chest discomfort following Ativan. Patient was recently evaluated by cardiology in the hospital. Case discussed with admitting physician from previous. Who feels patient should be discharged home. He has concerns regarding patient's overall health and possibly near hospice patient's secondary to severe lung disease. He does not feel patient will value from hospital admission. Patient and family updated on plan. Patient will be discharged back to nursing facility. Undiagnosed new problem with uncertain prognosis? @ -No Drug Therapy requiring intensive monitoring for toxicity (Heparin, Nitro, Insulin, Cardizem)? @ -No Were any procedures done? @ -No Diagnosis/symptom? @ -Chest pain, anxiety t Acute, or Chronic, or Acute on Chronic? @ -Acute, acute Uncomplicated (without systemic symptoms) or Complicated (systemic symptoms)? @ -Default Side effects of treatment? @ -No Exacerbation, Progression, or Severe Exacerbation? @ -No Poses a threat to life or bodily function? How? (Chest pain, USA, CT, pneumonia, PE, COPD, DKA, ARF, appy, cholecystitis, CVA, Diverticulitis, Homicidal, Suicidal, threat to staff... and all critical care pts) @ -No - Lab Data Result diagrams: 10/23/23 08:19 10/23/23 08:19 Lab Results 10/23/23 10/23/23 10/23/23 Range/Units 08:19 08:19 08:19 WBC 11.7 H (3.8-10.6) k/uL RBC 4.04 L (4.30-5.90) m/uL Hgb 14.0 (13.0-17.5) gm/dL Hct 42.2 (39.0-53.0) % MCV 104.6 H (80.0-100.0) fL MCH 34.7 (25.0-35.0) pg MCHC 33.2 (31.0-37.0) g/dL RDW 15.1 (11.5-15.5) % Plt Count 347 (150-450) k/uL MPV 8.3 Neutrophils % 74 % Lymphocytes % 15 % Monocytes % 6 % Eosinophils % 2 % Basophils % 0 % Neutrophils # 8.6 H (1.3-7.7) k/uL Lymphocytes # 1.7 (1.0-4.8) k/uL Monocytes # 0.6 (0-1.0) k/uL Eosinophils # 0.2 (0-0.7) k/uL Basophils # 0.0 (0-0.2) k/uL Hypochromasia Slight Macrocytosis Moderate PT 10.9 (10.0-12.5) sec INR 1.0 (<1.2) APTT 27.1 (22.0-30.0) sec D-Dimer 2.06 H (<0.60) mg/L FEU Sodium 139 (137-145) mmol/L Potassium 3.9 (3.5-5.1) mmol/L Chloride 101 (98-107) mmol/L Carbon Dioxide 21 L (22-30) mmol/L Anion Gap 17 mmol/L BUN 11 (9-20) mg/dL Creatinine 0.47 L (0.66-1.25) mg/dL Est GFR (CKD-EPI)AfAm >90 (>60 ml/min/1.73 sqM) Est GFR (CKD-EPI)NonAf >90 (>60 ml/min/1.73 sqM) Glucose 91 (74-99) mg/dL Calcium 9.4 (8.4-10.2) mg/dL Magnesium 1.9 (1.6-2.3) mg/dL Total Bilirubin 0.8 (0.2-1.3) mg/dL AST 39 (17-59) U/L ALT 32 (4-49) U/L Alkaline Phosphatase 93 (38-126) U/L Troponin I (0.000-0.034) ng/mL Total Protein 8.1 (6.3-8.2) g/dL Albumin 4.3 (3.5-5.0) g/dL Amylase 61 (30-110) U/L Lipase 60 (23-300) U/L 10/23/23 Range/Units 08:19 WBC (3.8-10.6) k/uL RBC (4.30-5.90) m/uL Hgb (13.0-17.5) gm/dL Hct (39.0-53.0) % MCV (80.0-100.0) fL MCH (25.0-35.0) pg MCHC (31.0-37.0) g/dL RDW (11.5-15.5) % Plt Count (150-450) k/uL MPV Neutrophils % % Lymphocytes % % Monocytes % % Eosinophils % % Basophils % % Neutrophils # (1.3-7.7) k/uL Lymphocytes # (1.0-4.8) k/uL Monocytes # (0-1.0) k/uL Eosinophils # (0-0.7) k/uL Basophils # (0-0.2) k/uL Hypochromasia Macrocytosis PT (10.0-12.5) sec INR (<1.2) APTT (22.0-30.0) sec D-Dimer (<0.60) mg/L FEU Sodium (137-145) mmol/L Potassium (3.5-5.1) mmol/L Chloride (98-107) mmol/L Carbon Dioxide (22-30) mmol/L Anion Gap mmol/L BUN (9-20) mg/dL Creatinine (0.66-1.25) mg/dL Est GFR (CKD-EPI)AfAm (>60 ml/min/1.73 sqM) Est GFR (CKD-EPI)NonAf (>60 ml/min/1.73 sqM) Glucose (74-99) mg/dL Calcium (8.4-10.2) mg/dL Magnesium (1.6-2.3) mg/dL Total Bilirubin (0.2-1.3) mg/dL AST (17-59) U/L ALT (4-49) U/L Alkaline Phosphatase (38-126) U/L Troponin I <0.012 (0.000-0.034) ng/mL Total Protein (6.3-8.2) g/dL Albumin (3.5-5.0) g/dL Amylase (30-110) U/L Lipase (23-300) U/L Disposition Clinical Impression: Chest pain, Anxiety Disposition: HOME SELF-CARE Condition: Stable Instructions (If sedation given, give patient instructions): Chest Pain (ED) Additional Instructions: Please do follow-up with primary care physician in the next 1 or 2 days for recheck. Also follow-up with cardiology in the next day or 2 for recheck. Return for increased pain, difficulty breathing, worsening or changing symptoms or other concerns. Is patient prescribed a controlled substance at d/c from ED?: No Referrals: Brian Arzola DO [Primary Care Provider] - 1-2 days Time of Disposition: 11:07
[2023-10-23 08:40] LABS: Basophils % (A) 0 %; Eosinophils # (A) 0.2 k/uL (0-0.7); Eosinophils % (A) 2 %; HCT 42.2 % (39.0-53.0); Hypochromasia Slight; Lymphocytes # (A) 1.7 k/uL (1.0-4.8); Lymphocytes % (A) 15 %; MCH 34.7 pg (25.0-35.0); MCHC 33.2 g/dL (31.0-37.0); MCV 104.6 fL (80.0-100.0); Macrocytosis Moderate; Mean Platelet Volume 8.3; Monocytes # (A) 0.6 k/uL (0-1.0); Monocytes % (A) 6 %; Neutrophils # (A) 8.6 k/uL (1.3-7.7); Neutrophils % (A) 74 %; Platelet Count 347 k/uL (150-450); RBC 4.04 m/uL (4.30-5.90); RDW 15.1 % (11.5-15.5); WBC 11.7 k/uL (3.8-10.6)
[2023-10-23 08:54] LABS: Partial Thromboplastin Time 27.1 sec (22.0-30.0); Prothrombin Time 10.9 sec (10.0-12.5)
--- NOTE | 2023-10-23 09:01 | XR ---
EXAMINATION TYPE: XR chest 2V DATE OF EXAM: 10/23/2023 COMPARISON: 10/18/2023, 08/28/2021 INDICATION: Chest pain TECHNIQUE: Frontal and lateral views of the chest are obtained. FINDINGS: The heart size is normal. The pulmonary vasculature is normal. Diffuse increased lung markings remain present. Pulmonary fibrosis could be considered. Findings appe ars similar to comparison. IMPRESSION: 1. Suspected pulmonary fibrosis. 2. Infiltrate may be somewhat more focal at the left lung although similar recent examination. Consid er atelectasis and pneumonia within the differential left lower lobe.
[2023-10-23] MEDS ORDERED: LORazepam 2 MG/ML INJ IV STA (09:14)
[2023-10-23 09:25] LABS: ALT 32 U/L (4-49); AST 39 U/L (17-59); African American GFR (CKD) >90 (>60 ml/min/1.73 sqM); Albumin 4.3 g/dL (3.5-5.0); Alkaline Phosphatase 93 U/L (38-126); Amylase 61 U/L (30-110); Anion Gap 17 mmol/L; Blood Urea Nitrogen 11 mg/dL (9-20); Calcium 9.4 mg/dL (8.4-10.2); Carbon Dioxide 21 mmol/L (22-30); Chloride 101 mmol/L (98-107); Glucose 91 mg/dL (74-99); Lipase 60 U/L (23-300); Magnesium 1.9 mg/dL (1.6-2.3); Non-African American GFR(CKD) >90 (>60 ml/min/1.73 sqM); Sodium 139 mmol/L (137-145); Total Bilirubin 0.8 mg/dL (0.2-1.3); Total Protein 8.1 g/dL (6.3-8.2)
[2023-10-23 09:41] LABS: Potassium 3.9 mmol/L (3.5-5.1)
--- NOTE | 2023-10-23 09:52 | CT ---
CTA CHEST EXAMINATION TYPE: CT angio chest DATE OF EXAM: 10/23/2023 INDICATION: cp, dyspnea. elevated d-dimer CT DLP: 268.6 mGycm, Automated exposure control for dose reduction was used. CONTRAST: Patient injected with 60ml mL of Isovue 370. COMPARISON: 09/24/2021 TECHNIQUE: CT of the chest is performed on a spiral scan at 2 mm thick sections. Study is performed with intravenous contrast timed for evaluation for pulmonary embolism. This will limit additional po rtions of the evaluation. 3-D MIP images reconstructed by the technologist are reviewed on the compu ter in the coronal and sagittal planes. FINDINGS: No persistent filling defects are evident to suggest an acute pulmonary embolism. No mediastinal or hilar adenopathy enlarged by CT criteria is evident. The ascending aorta diameter at the level of the main pulmonary artery is 3.3 cm. The main pulmonary artery diameter at the bifurcation is 3.3 cm. There is diffuse increased groundglass opacity within the right lung as well as a few scattered areas on the left. Findings are nonspecific. Consider atypical pneumonia and pulmonary edema in the differ ential. Pulmonary fibrosis is likely present within the lung bases. Limited CT sections were through the upper abdomen. Upper abdomen appears unremarkable. IMPRESSION: 1. No acute pulmonary embolus. 2. Pulmonary fibrosis. Some superimposed pulmonary edema or atypical pneumonia could be considered.
[2023-10-23 12:05] VITALS: BP 130/94; PULSE 103; RESP 18
== END 2023-10-23 11:48 | disposition home or self-care (01) ==
LOC: EC 07:35
DX: R07.89 Other chest pain (principal); F41.9 Anxiety disorder, unspecified; F32.A Depression, unspecified; Z79.899 Other long term (current) drug therapy
CPT/HCPCS: 36415; 93005; 85379; 80053; 82150; 83690; 83735; 84484; 85025; 85610; 85730; 71046; 71275; 99285; 96374; J2060; Q9967

== ENCOUNTER 2023-10-25 04:17 | Emergency (ER) | payer MEDICARE ==
--- NOTE | 2023-10-25 06:12 | ED ---
General Adult HPI - General Chief complaint: Shortness of Breath Stated complaint: Chest Pain, RT shoulder Pain Time Seen by Provider: 10/25/23 06:11 Source: patient, EMS, RN notes reviewed Mode of arrival: EMS Limitations: physical limitation - History of Present Illness Initial comments: 63-year-old male presents emergency department from [facility] for evaluation of possible pneumonia. Patient states that he has very poor lungs and states that he just feels like he may have pneumonia. Patient has a cough minimally productive. Patient is at [facility] because he had bilateral pneumonia. Patient was sent over because he had left shoulder pain that was not alleviated with his [place] patient has chronic left shoulder pain he denies any chest pain associated with it. Denies any fever or chills. Patient denies any GI symptoms including nausea, diarrhea constipation. - Related Data Home Medications Medication Instructions Recorded Confirmed Citalopram Hydrobromide [CeleXA] 40 mg PO DAILY 03/25/21 10/25/23 QUEtiapine [SEROquel] 50 mg PO AC-BID@0800,1700 03/25/21 10/25/23 Mupirocin 2% Oint [Bactroban 2% 1 applic TOPICAL Q2D 10/14/23 10/25/23 Oint] busPIRone HCL [Buspar] 7.5 mg PO BID@0800,1700 10/14/23 10/25/23 QUEtiapine [SEROquel] 100 mg PO HS 10/18/23 10/25/23 Albuterol Nebulized [Ventolin 2.5 mg INHALATION RT-TID@08,12,17 10/25/23 10/25/23 Nebulized] Ensure Enlive 237 ml PO TID@0800,1200,1700 10/25/23 10/25/23 HYDROcodone/APAP 5-325MG [[place] 1 tab PO Q6HR PRN 10/25/23 10/25/23 5-325] LORazepam [Ativan] 0.5 mg PO DIRECTED PRN 10/25/23 10/25/23 LORazepam [Ativan] 0.5 mg PO QID@00,06,12,18 10/25/23 10/25/23 Magnesium Hydroxide [Milk of 7,200 mg PO DAILY PRN 10/25/23 10/25/23 Magnesia Concentrate] Multivitamins, Thera [Multivitamin 1 tab PO DAILY 10/25/23 10/25/23 (formulary)] Na Phos,M-B/Na Phos,Di-Ba [Fleet 133 ml RECTAL DAILY PRN 10/25/23 10/25/23 Adult] Nitroglycerin Sl Tabs [Nitrostat] 0.4 mg SUBLINGUAL Q5M PRN 10/25/23 10/25/23 Sennosides [Senokot] 17.2 mg PO BID@0800,1700 10/25/23 10/25/23 bisacodyL [Dulcolax] 10 mg RECTAL DAILY PRN 10/25/23 10/25/23 Previous Rx's Medication Instructions Recorded Folic Acid 1 mg PO DAILY #30 tab 03/30/21 Lactulose [Cephulac] 20 gm PO BID PRN ml 10/21/23 Simethicone Chew [Mylicon Chew] 40 mg PO QID tab 10/21/23 Thiamine [Vitamin B-1] 100 mg PO DAILY #7 tablet 10/21/23 Allergies Allergy/AdvReac Type Severity Reaction Status Date / Time No Known Allergies Allergy Verified 10/25/23 09:01 Review of Systems ROS Statement: Those systems with pertinent positive or pertinent negative responses have been documented in the HPI. ROS Other: All systems not noted in ROS Statement are negative. Past Medical History Past Medical History: Musculoskeletal Disorder Additional Past Medical History / Comment(s): ETOH abuse, DTs, chronic low back pain/herniated discs/scoliosis/spinal stenosis, right shoulder, pulmonary fibrosis, Home O2 3L History of Any Multi-Drug Resistant Organisms: None Reported Past Surgical History: Orthopedic Surgery Additional Past Surgical History / Comment(s): R ankle fx with surgical repair- pin in and out, back injections at [facility]. Left knee Past Anesthesia/Blood Transfusion Reactions: No Reported Reaction Additional Past Anesthesia/Blood Transfusion Reaction / Comment(s): Pt has never received blood. Past Psychological History: Anxiety, Depression Smoking Status: Never smoker Past Alcohol Use History: Abuse, Daily, Heavy Past Drug Use History: None Reported - Past Family History Father Family Medical History: Dementia Additional Family Medical History / Comment(s): Father is . Mother Family Medical History: Cancer Additional Family Medical History / Comment(s): Mother at age 64yrs of pancreatic cancer. General Exam - General Exam Comments Initial Comments: Visual Physical Exam Vital signs reviewed General: Well-appearing, nontoxic, no acute distress. Head: Normocephalic, atraumatic Eyes: PERRLA, EOMI ENT: Airway patent Chest: Nonlabored breathing Skin: No visual rash, normal skin tone Neuro: Alert and oriented 3 Musculoskeletal: No gross abnormalities Limitations: physical limitation General appearance: alert, in no apparent distress Head exam: Present: atraumatic, normocephalic, normal inspection Eye exam: Present: normal appearance, PERRL, EOMI. Absent: scleral icterus, conjunctival injection, periorbital swelling ENT exam: Present: normal exam, normal oropharynx, mucous membranes moist Neck exam: Present: normal inspection, full ROM. Absent: tenderness, meningismus, lymphadenopathy Respiratory exam: Present: wheezes, rhonchi, decreased breath sounds. Absent: normal lung sounds bilaterally, respiratory distress, rales, stridor Cardiovascular Exam: Present: regular rate, normal rhythm, normal heart sounds. Absent: systolic murmur, diastolic murmur, rubs, gallop, clicks GI/Abdominal exam: Present: soft, normal bowel sounds. Absent: distended, tenderness, guarding, rebound, rigid Neurological exam: Present: alert Course Vital Signs 10/25/23 10/25/23 10/25/23 04:42 08:03 10:19 Temperature 98.6 F 98.1 F Pulse Rate 105 H 102 H 90 Respiratory 22 22 20 Rate Blood Pressure 138/99 144/97 155/103 O2 Sat by Pulse 98 96 97 Oximetry EKG Findings - EKG Comments: EKG Findings:: EKG performed at 5: 17 sinus tachycardia rate of 104 NV 162 QRS 90 QT/QTc 393/453 - EKG Results: EKG: interpreted by FRANKY Medical Decision Making - Medical Decision Making I completed the quick note portion of this chart signed Kwaku Willis PA-C Was pt. sent in by a medical professional or institution (ANAYA Javed, INTEGRITY CONSULTANT, urgent care, hospital, or care home...) When possible be specific @ -Justine Did you speak to anyone other than the patient for history (EMS, parent, family, police, friend...)? What history was obtained from this source @ -No Did you review nursing and triage notes (agree or disagree)? Why? @ -I reviewed and agree with nursing and triage notes Were old charts reviewed (outside hosp., previous admission, EMS record, old EKG, old radiological studies, urgent care reports/EKG's, care home records)? Report findings @ -[Reviewed laboratory studies Differential Diagnosis (chest pain, altered mental status, abdominal pain women, abdominal pain men, vaginal bleeding, weakness, fever, dyspnea, syncope, headache, dizziness, GI bleed, back pain, seizure, CVA, palpatations, mental health, musculoskeletal)? @ -Differential Dyspnea: Coronary syndrome, arrhythmia, tamponade, asthma, COPD, pulmonary embolism, pneumonia, pneumothorax, pulmonary effusion, anaphylaxis, diabetic ketoacidosis, flailed chest, pulmonary contusion, diaphragmatic rupture, anemia, neuromuscular, this is not meant to be an all-inclusive list. @ -As above X-rays interpreted by me (1pt min.). @ -[Trace shows extensive pulmonary fibrosis, possible infiltrate in the right CT interpreted by me (1pt min.). @ -None done U/S interpreted by me (1pt. min.). @ -None done What testing was considered but not performed or refused? (CT, X-rays, U/S, labs)? Why? @ -None What meds were considered but not given or refused? Why? @ -None Did you discuss the management of the patient with other professionals (matt ayoub i.e. , PA, INTEGRITY CONSULTANT, lab, RT, psych nurse, social work lecturer, control operator flow coat, teacher, commanding officer garage, case management manager)? Give summary @ -No Was smoking cessation discussed for >3mins.? @ -No Was critical care preformed (if so, how long)? @ -No Were there social determinants of health that impacted care today? How? (Homelessness, low income, unemployed, alcoholism, drug addiction, transportation, low edu. Level, literacy, decrease access to med. care, alf, rehab)? @ -No Was there de-escalation of care discussed even if they declined (Discuss DNR or withdrawal of care, Hospice)? DNR status @ -No What co-morbidities impacted this encounter? (DM, HTN, Smoking, COPD, CAD, Cancer, CVA, ARF, Chemo, Hep., AIDS, mental health diagnosis, sleep apnea, morbid obesity)? @ -[Pulmonary fibrosis, chronic pain, opiate abuse, alcohol abuse Was patient admitted / discharged? Hospital course, mention meds given and route, prescriptions, significant lab abnormalities, going to OR and other pertinent info. @ -Discharged patient has evidence of pneumonia very minimal on x-ray laboratory studies are unremarkable. Patient was questionably 3 discharged back to [facility] patient is at his baseline not requiring any further oxygenation. Patient was given antibiotics given radiology reading patient will have close monitoring. Undiagnosed new problem with uncertain prognosis? @ -No Drug Therapy requiring intensive monitoring for toxicity (Heparin, Nitro, Insulin, Cardizem)? @ -No Were any procedures done? @ -No Diagnosis/symptom? @ -[Pneumonia, chronic pain Acute, or Chronic, or Acute on Chronic? @ -Acute Uncomplicated (without systemic symptoms) or Complicated (systemic symptoms)? @ -Uncomplicated Side effects of treatment? @ -No Exacerbation, Progression, or Severe Exacerbation? @ -No Poses a threat to life or bodily function? How? (Chest pain, [place], [place], pneumonia, PE, COPD, DKA, ARF, appy, cholecystitis, CVA, Diverticulitis, Homicidal, Suicidal, threat to staff... and all critical care pts) @ -Yes pneumonia - Lab Data Result diagrams: 10/25/23 07:49 10/25/23 07:49 Lab Results 10/25/23 10/25/23 10/25/23 Range/Units 07:49 07:49 07:49 WBC 8.3 (3.8-10.6) k/uL RBC 4.96 (4.30-5.90) m/uL Hgb 16.7 (13.0-17.5) gm/dL Hct 51.9 (39.0-53.0) % MCV 104.7 H (80.0-100.0) fL MCH 33.7 (25.0-35.0) pg MCHC 32.2 (31.0-37.0) g/dL RDW 14.6 (11.5-15.5) % Plt Count 334 (150-450) k/uL MPV 8.3 Neutrophils % 71 % Lymphocytes % 18 % Monocytes % 6 % Eosinophils % 2 % Basophils % 1 % Neutrophils # 5.9 (1.3-7.7) k/uL Lymphocytes # 1.5 (1.0-4.8) k/uL Monocytes # 0.5 (0-1.0) k/uL Eosinophils # 0.2 (0-0.7) k/uL Basophils # 0.0 (0-0.2) k/uL Hypochromasia Slight Macrocytosis Moderate PT 10.3 (10.0-12.5) sec INR 0.9 (<1.2) APTT 22.9 (22.0-30.0) sec Sodium 141 (137-145) mmol/L Potassium 4.0 (3.5-5.1) mmol/L Chloride 99 (98-107) mmol/L Carbon Dioxide 31 H (22-30) mmol/L Anion Gap 11 mmol/L BUN 12 (9-20) mg/dL Creatinine 0.50 L (0.66-1.25) mg/dL Est GFR (CKD-EPI)AfAm >90 (>60 ml/min/1.73 sqM) Est GFR (CKD-EPI)NonAf >90 (>60 ml/min/1.73 sqM) Glucose 101 H (74-99) mg/dL Plasma Lactic Acid Cooper (0.7-2.0) mmol/L Calcium 10.1 (8.4-10.2) mg/dL Total Bilirubin 0.7 (0.2-1.3) mg/dL AST 32 (17-59) U/L ALT 29 (4-49) U/L Alkaline Phosphatase 104 (38-126) U/L Troponin I (0.000-0.034) ng/mL Total Protein 9.2 H (6.3-8.2) g/dL Albumin 4.8 (3.5-5.0) g/dL Influenza Type A (PCR) (Not Detectd) Influenza Type B (PCR) (Not Detectd) RSV (PCR) (Not Detectd) SARS-CoV-2 (PCR) (Not Detectd) 10/25/23 10/25/23 10/25/23 Range/Units 07:49 07:49 07:49 WBC (3.8-10.6) k/uL RBC (4.30-5.90) m/uL Hgb (13.0-17.5) gm/dL Hct (39.0-53.0) % MCV (80.0-100.0) fL MCH (25.0-35.0) pg MCHC (31.0-37.0) g/dL RDW (11.5-15.5) % Plt Count (150-450) k/uL MPV Neutrophils % % Lymphocytes % % Monocytes % % Eosinophils % % Basophils % % Neutrophils # (1.3-7.7) k/uL Lymphocytes # (1.0-4.8) k/uL Monocytes # (0-1.0) k/uL Eosinophils # (0-0.7) k/uL Basophils # (0-0.2) k/uL Hypochromasia Macrocytosis PT (10.0-12.5) sec INR (<1.2) APTT (22.0-30.0) sec Sodium (137-145) mmol/L Potassium (3.5-5.1) mmol/L Chloride (98-107) mmol/L Carbon Dioxide (22-30) mmol/L Anion Gap mmol/L BUN (9-20) mg/dL Creatinine (0.66-1.25) mg/dL Est GFR (CKD-EPI)AfAm (>60 ml/min/1.73 sqM) Est GFR (CKD-EPI)NonAf (>60 ml/min/1.73 sqM) Glucose (74-99) mg/dL Plasma Lactic Acid Cooper 1.4 (0.7-2.0) mmol/L Calcium (8.4-10.2) mg/dL Total Bilirubin (0.2-1.3) mg/dL AST (17-59) U/L ALT (4-49) U/L Alkaline Phosphatase (38-126) U/L Troponin I <0.012 (0.000-0.034) ng/mL Total Protein (6.3-8.2) g/dL Albumin (3.5-5.0) g/dL Influenza Type A (PCR) Not Detected (Not Detectd) Influenza Type B (PCR) Not Detected (Not Detectd) RSV (PCR) Not Detected (Not Detectd) SARS-CoV-2 (PCR) Not Detected (Not Detectd) Disposition Clinical Impression: Pneumonia, Chronic pain Disposition: HOME SELF-CARE Condition: Stable Instructions (If sedation given, give patient instructions): Pneumonia (ED) Additional Instructions: Please return to the Emergency Department if symptoms worsen or any other [place] rns. Is patient prescribed a controlled substance at d/c from ED?: No Referrals: Brian Arzola DO [Primary Care Provider] - 1-2 days Time of Disposition: 09:56
--- NOTE | 2023-10-25 07:26 | XR ---
EXAMINATION TYPE: XR chest 1V DATE OF EXAM: 10/25/2023 HISTORY: Shortness of breath. COMPARISON: 10/23/2023 TECHNIQUE: Single view of the chest is submitted. FINDINGS: Demonstrated are scattered senescent parenchymal change. Diminished lung volumes with left basilar and right upper lobe infiltrate. Underlying fibrosis is dif ficult to exclude. Correlate clinically. The heart is stable. Hilar and mediastinal structures are within normal limits. Degenerative changes are seen of the dorsal spine. IMPRESSION: 1. Diminished lung volumes with left basilar and right upper lobe infiltrate. Underlying fibrosis is difficult to exclude. Correlate clinically.
[2023-10-25] MEDS ORDERED: traMADol 50 MG TAB PO STA (07:58)
[2023-10-25 09:01] LABS: INR 0.9 (<1.2); Partial Thromboplastin Time 22.9 sec (22.0-30.0); Prothrombin Time 10.3 sec (10.0-12.5)
[2023-10-25] MEDS ORDERED: LORazepam 1 MG TAB PO STA (09:11)
[2023-10-25 09:17] LABS: ALT 29 U/L (4-49); AST 32 U/L (17-59); African American GFR (CKD) >90 (>60 ml/min/1.73 sqM); Albumin 4.8 g/dL (3.5-5.0); Alkaline Phosphatase 104 U/L (38-126); Anion Gap 11 mmol/L; Blood Urea Nitrogen 12 mg/dL (9-20); Calcium 10.1 mg/dL (8.4-10.2); Carbon Dioxide 31 mmol/L (22-30); Chloride 99 mmol/L (98-107); Glucose 101 mg/dL (74-99); Non-African American GFR(CKD) >90 (>60 ml/min/1.73 sqM); Sodium 141 mmol/L (137-145); Total Bilirubin 0.7 mg/dL (0.2-1.3); Total Protein 9.2 g/dL (6.3-8.2)
[2023-10-25 09:36] LABS: Basophils % (A) 1 %; Eosinophils # (A) 0.2 k/uL (0-0.7); Eosinophils % (A) 2 %; HCT 51.9 % (39.0-53.0); HGB 16.7 gm/dL (13.0-17.5); Hypochromasia Slight; Lymphocytes # (A) 1.5 k/uL (1.0-4.8); Lymphocytes % (A) 18 %; MCH 33.7 pg (25.0-35.0); MCHC 32.2 g/dL (31.0-37.0); MCV 104.7 fL (80.0-100.0); Macrocytosis Moderate; Mean Platelet Volume 8.3; Monocytes # (A) 0.5 k/uL (0-1.0); Monocytes % (A) 6 %; Neutrophils # (A) 5.9 k/uL (1.3-7.7); Neutrophils % (A) 71 %; Platelet Count 334 k/uL (150-450); RBC 4.96 m/uL (4.30-5.90); RDW 14.6 % (11.5-15.5); WBC 8.3 k/uL (3.8-10.6)
[2023-10-25 10:44] VITALS: BP 155/103; PULSE 90; RESP 20; TEMP 98.1
== END 2023-10-25 10:19 | disposition home or self-care (01) ==
LOC: EC 04:17
DX: J18.9 Pneumonia, unspecified organism (principal); J84.10 Pulmonary fibrosis, unspecified; G89.29 Other chronic pain; M54.50 Low back pain, unspecified; M25.512 Pain in left shoulder; R00.0 Tachycardia, unspecified; F32.A Depression, unspecified; F41.9 Anxiety disorder, unspecified; Z20.822 Contact with and (suspected) exposure to COVID-19; Z79.899 Other long term (current) drug therapy; Z99.81 Dependence on supplemental oxygen
CPT/HCPCS: 36415; 71045; 80053; 83605; 84484; 85025; 85610; 85730; 87636; 93005; 99285

== ENCOUNTER 2023-12-16 23:36 | Inpatient (IN) | payer MEDICARE ==
--- NOTE | 2023-12-17 00:03 | ED ---
Altered Mental Status HPI - General Chief Complaint: Shortness of Breath Stated Complaint: allergic reaction Time Seen by Provider: 12/16/23 23:47 Source: patient, family, RN notes reviewed, old records reviewed Mode of arrival: wheelchair Limitations: no limitations - History of Present Illness Initial Comments: This is a 63-year-old male coming in for uncontrolled shaking with a believed likely medication reaction. Patient is found to be altered, shaky, weak shortness of breath with increasing shortness of breath the last 2 days. Patient recently had an increase in his home muscle relaxer and is back with no help in symptoms. Patient has persistent shortness of breath MD Complaint: altered mental status, confusion -: hour(s) Severity: moderate Consistency of Symptoms: waxing and waning, getting worse Associated Symptoms: denies other symptoms Treatments Prior to Arrival: IV fluid, oxygen - Related Data Home Medications Medication Instructions Recorded Confirmed Citalopram Hydrobromide [CeleXA] 40 mg PO DAILY 03/25/21 12/17/23 QUEtiapine [SEROquel] 50 mg PO TID@0800,1400,2000 03/25/21 12/17/23 busPIRone HCL [Buspar] 7.5 mg PO BID 10/14/23 12/17/23 Cbd Gummies 20mg 10 - 20 mg PO QID PRN 12/17/23 12/17/23 Cyclobenzaprine [Flexeril] 5 - 10 mg PO Q8H PRN 12/17/23 12/17/23 Medihoney 80% Gel 1 applic TOPICAL DAILY 12/17/23 12/17/23 Megestrol Acetate 400 mg PO BID 12/17/23 12/17/23 Melatonin 2 mg PO HS 12/17/23 12/17/23 Melatonin 2 mg PO HS PRN 12/17/23 12/17/23 Previous Rx's Medication Instructions Recorded Folic Acid 1 mg PO DAILY #30 tab 03/30/21 Allergies Allergy/AdvReac Type Severity Reaction Status Date / Time No Known Allergies Allergy Verified 12/17/23 12:40 Review of Systems ROS Statement: Those systems with pertinent positive or pertinent negative responses have been documented in the HPI. ROS Other: All systems not noted in ROS Statement are negative. Past Medical History Past Medical History: Musculoskeletal Disorder Additional Past Medical History / Comment(s): ETOH abuse, DTs, chronic low back pain/herniated discs/scoliosis/spinal stenosis, right shoulder, pulmonary fibrosis, Home O2 3L History of Any Multi-Drug Resistant Organisms: None Reported Past Surgical History: Orthopedic Surgery Additional Past Surgical History / Comment(s): R ankle fx with surgical repair- pin in and out, back injections at [facility]. Left knee Past Anesthesia/Blood Transfusion Reactions: No Reported Reaction Additional Past Anesthesia/Blood Transfusion Reaction / Comment(s): Pt has never received blood. Past Psychological History: Anxiety, Depression Smoking Status: Never smoker Past Alcohol Use History: Abuse, Daily, Heavy Past Drug Use History: None Reported - Past Family History Father Family Medical History: Dementia Additional Family Medical History / Comment(s): Father is . Mother Family Medical History: Cancer Additional Family Medical History / Comment(s): Mother at age 64yrs of pancreatic cancer. General Exam Limitations: altered mental status General appearance: alert, anxious, in distress Head exam: Present: atraumatic, normocephalic, normal inspection Eye exam: Present: normal appearance, PERRL, EOMI. Absent: scleral icterus, conjunctival injection, periorbital swelling ENT exam: Present: normal exam, mucous membranes moist Neck exam: Present: normal inspection. Absent: tenderness, meningismus, lymphadenopathy Respiratory exam: Present: normal lung sounds bilaterally. Absent: respiratory distress, wheezes, rales, rhonchi, stridor Cardiovascular Exam: Present: normal rhythm, tachycardia, normal heart sounds. Absent: systolic murmur, diastolic murmur, rubs, gallop, clicks GI/Abdominal exam: Present: soft, normal bowel sounds. Absent: distended, tenderness, guarding, rebound, rigid Extremities exam: Present: normal inspection, full ROM, normal capillary refill. Absent: tenderness, pedal edema, joint swelling, calf tenderness Back exam: Present: normal inspection Neurological exam: Present: alert, oriented X3, CN II-XII intact Psychiatric exam: Present: normal affect, normal mood Skin exam: Present: warm, dry, intact, normal color. Absent: rash Course Vital Signs 12/16/23 12/17/23 12/17/23 23:37 00:46 00:53 Temperature 97.1 F L Pulse Rate 122 H 115 H 120 H Respiratory 28 H 20 Rate Blood Pressure 85/57 O2 Sat by Pulse 87 L Oximetry 12/17/23 12/17/23 12/17/23 01:00 01:19 01:57 Temperature 100.3 F H Pulse Rate 121 H 118 H Respiratory 22 25 H Rate Blood Pressure 112/83 109/92 O2 Sat by Pulse 94 L 94 L Oximetry 12/17/23 12/17/23 12/17/23 02:00 03:00 03:30 Temperature Pulse Rate 102 H 98 101 H Respiratory 20 22 30 H Rate Blood Pressure 109/92 113/86 115/69 O2 Sat by Pulse 94 L 95 96 Oximetry 12/17/23 12/17/23 12/17/23 04:00 04:59 05:00 Temperature 98.4 F Pulse Rate 95 124 H Respiratory 26 H 34 H Rate Blood Pressure 111/73 114/83 O2 Sat by Pulse 96 100 Oximetry 12/17/23 12/17/23 12/17/23 05:30 06:00 06:26 Temperature Pulse Rate 105 H 105 H 101 H Respiratory 28 H 26 H 27 H Rate Blood Pressure 139/94 106/77 103/78 O2 Sat by Pulse 99 99 96 Oximetry 12/17/23 07:36 Temperature Pulse Rate 96 Respiratory 22 Rate Blood Pressure 106/78 O2 Sat by Pulse 98 Oximetry - Reevaluation(s) Reevaluation #1: 12/16/23 23:55 medical record is reviewed Reevaluation #2: 12/17/23 01:53 Patient symptoms are unchanged here in the ER 12/17/23 03:43 Speaking with family symptoms are concerning for hallucinations tremors agitated restlessness and another full list of symptoms that the patient has been experiencing over the last day 12/17/23 04:44 patient is having a seizure here in the ED afteer increasing tremor givne ativan new labs have been sent and vitals taken Reevaluation #3: 12/17/23 01:53 Patient informed of results and questions answered Reevaluation #4: Was pt. sent in by a medical professional or institution (, PA, [employer]LLF[employer]ER, urgent care, hospital, or usp...) When possible be specific @ -no Did you speak to anyone other than the patient for history (EMS, parent, family, police, friend...)? What history was obtained from this source @ -no Did you review nursing and triage notes (agree or disagree)? Why? @ -agree Are old charts reviewed (outside hosp., previous admission, EMS record, old EKG, old radiological studies, urgent care reports/EKG's, usp records)? Report findings @ -yes Differential Diagnosis (chest pain, altered mental status, abdominal pain women, abdominal pain men, vaginal bleeding, weakness, fever, dyspnea, syncope, h eadache, dizziness, GI bleed, back pain, seizure, CVA, palpatations, mental health, musculoskeletal)? @ -prior EKG interpreted by me (3pts min.). @ -yes X-rays interpreted by me (1pt min.). @ -yes negative for acute disease CT interpreted by me (1pt min.). @ -Yes negative for acute disease U/S interpreted by me (1pt. min.). @ -no What testing was considered but not performed or refused? (CT, X-rays, U/S, labs)? Why? @ -none What meds were considered but not given or refused? Why? @ -none Did you discuss the management of the patient with other professionals (professionals i.e. , PA, [employer], lab, RT, psych nurse, social media designer, school child care attendant, teacher, president and chief commercial officer, pillowcase cutter)? Give summary @ -no Was smoking cessation discussed for >3mins.? @ -no Was critical care preformed (if so, how long)? @ -yes31 Were there social determinants of health that impacted care today? How? (Homelessness, low income, unemployed, alcoholism, drug addiction, transportation, low edu. Level, literacy, decrease access to med. care, fdc, rehab)? @ -none Was there de-escalation of care discussed even if they declined (Discuss DNR or withdrawal of care, Hospice)? DNR status @ -no What co-morbidities impacted this encounter? (DM, HTN, Smoking, COPD, CAD, Cancer, CVA, ARF, Chemo, Hep., AIDS, mental health diagnosis, sleep apnea, morbid obesity)? @ -none Was patient admitted / discharged? Hospital course, mention meds given and route, prescriptions, significant lab abnormalities, going to OR and other pertinent info. @ - 63 male with positive medication reaction. Patient is on citalopram and Flexeril currently with increased dose, patient does have mild symptoms or concern for serotonin syndrome again severely mild, there was no vitals taken if toxicity is chronic. Patient does have fever we will place on antibiotics and will be admitted for further evaluation and monitoring. Patient is end-stage pulmonary fibrosis with significant history of drug dependency and alcohol abuse Admitted Undiagnosed new problem with uncertain prognosis? @ -no Drug Therapy requiring intensive monitoring for toxicity (Heparin, Nitro, Insulin, Cardizem)? @ -no Were any procedures done? @ -no Diagnosis/symptom? @ -Altered mental status, tremor, medication reaction withdrawal Acute, or Chronic, or Acute on Chronic? @ -Acute Uncomplicated (without systemic symptoms) or Complicated (systemic symptoms)? @ -Complicated Side effects of treatment? @ -no Exacerbation, Progression, or Severe Exacerbation? @ -exacerbation Poses a threat to life or bodily function? How? (Chest pain, USA, NM, pneumonia, PE, COPD, DKA, ARF, appy, cholecystitis, CVA, Diverticulitis, Homicidal, Suicidal, threat to staff... and all critical care pts) @ -yes altered mental status Reevaluation #5: Differential Altered Mental Status: Hypoglycemia, DKA, hypercapnia, ETOH, overdose, CO poisoning, trauma, myxedema coma, HTN encephalopathy, infection, encephalitis, psychosis, intercranial hemorrhage, hepatic encephalopathy, meningitis, CVA, this is not meant to be an all-inclusive list - Consultations Consultation #1: Spoke with sound who agrees to admit this patient Medical Decision Making - Medical Decision Making 63 male with positive medication reaction. Patient is on citalopram and Flexeril currently with increased dose, patient does have mild symptoms or concern for serotonin syndrome again severely mild, there was no vitals taken if toxicity is chronic. Patient does have fever we will place on antibiotics and will be admitted for further evaluation and monitoring. Patient is end-stage pulmonary fibrosis with significant history of drug dependency and alcohol abuse - Lab Data Result diagrams: 12/27/23 09:37 12/27/23 09:37 Lab Results 12/17/23 12/17/23 12/17/23 Range/Units 00:15 00:15 00:15 WBC 13.1 H (3.8-10.6) k/uL RBC 4.19 L (4.30-5.90) m/uL Hgb 13.9 (13.0-17.5) gm/dL Hct 41.1 (39.0-53.0) % MCV 98.2 D (80.0-100.0) fL MCH 33.1 (25.0-35.0) pg MCHC 33.8 (31.0-37.0) g/dL RDW 13.2 (11.5-15.5) % Plt Count 335 (150-450) k/uL MPV 9.2 Neutrophils % 75 % Lymphocytes % 17 % Monocytes % 6 % Eosinophils % 0 % Basophils % 0 % Neutrophils # 9.9 H (1.3-7.7) k/uL Lymphocytes # 2.2 (1.0-4.8) k/uL Monocytes # 0.8 (0-1.0) k/uL Eosinophils # 0.1 (0-0.7) k/uL Basophils # 0.0 (0-0.2) k/uL Manual Slide Review Performed RBC Morphology Normal PT 11.2 (10.0-12.5) sec INR 1.0 (<1.2) APTT 24.1 (22.0-30.0) sec Sodium (137-145) mmol/L Potassium (3.5-5.1) mmol/L Chloride (98-107) mmol/L Carbon Dioxide (22-30) mmol/L Anion Gap mmol/L BUN (9-20) mg/dL Creatinine (0.66-1.25) mg/dL Est GFR (CKD-EPI)AfAm (>60 ml/min/1.73 sqM) Est GFR (CKD-EPI)NonAf (>60 ml/min/1.73 sqM) Glucose (74-99) mg/dL Calcium (8.4-10.2) mg/dL Phosphorus (2.5-4.5) mg/dL Magnesium (1.6-2.3) mg/dL Total Bilirubin (0.2-1.3) mg/dL AST (17-59) U/L ALT (4-49) U/L Alkaline Phosphatase (38-126) U/L Ammonia 32 H (<30) umol/L Troponin I (0.000-0.034) ng/mL NT-Pro-B Natriuret Pep pg/mL Total Protein (6.3-8.2) g/dL Albumin (3.5-5.0) g/dL Lipase (23-300) U/L TSH (0.465-4.680) mIU/L Urine Color Urine Appearance (Clear) Urine pH (5.0-8.0) Ur Specific Hastings (1.001-1.035) Urine Protein (Negative) Urine Glucose (UA) (Negative) Urine Ketones (Negative) Urine Blood (Negative) Urine Nitrite (Negative) Urine Bilirubin (Negative) Urine Urobilinogen (<2.0) mg/dL Ur Leukocyte Esterase (Negative) Urine RBC (0-5) /hpf Urine WBC (0-5) /hpf Ur Squamous Epith Cells (0-4) /hpf Amorphous Sediment (None) /hpf Urine Mucus (None) /hpf Serum Alcohol mg/dL 12/17/23 12/17/23 12/17/23 Range/Units 00:15 00:15 00:25 WBC (3.8-10.6) k/uL RBC (4.30-5.90) m/uL Hgb (13.0-17.5) gm/dL Hct (39.0-53.0) % MCV (80.0-100.0) fL MCH (25.0-35.0) pg MCHC (31.0-37.0) g/dL RDW (11.5-15.5) % Plt Count (150-450) k/uL MPV Neutrophils % % Lymphocytes % % Monocytes % % Eosinophils % % Basophils % % Neutrophils # (1.3-7.7) k/uL Lymphocytes # (1.0-4.8) k/uL Monocytes # (0-1.0) k/uL Eosinophils # (0-0.7) k/uL Basophils # (0-0.2) k/uL Manual Slide Review RBC Morphology PT (10.0-12.5) sec INR (<1.2) APTT (22.0-30.0) sec Sodium 133 L (137-145) mmol/L Potassium 4.2 (3.5-5.1) mmol/L Chloride 94 L (98-107) mmol/L Carbon Dioxide 21 L (22-30) mmol/L Anion Gap 18 mmol/L BUN 17 (9-20) mg/dL Creatinine 0.52 L (0.66-1.25) mg/dL Est GFR (CKD-EPI)AfAm >90 (>60 ml/min/1.73 sqM) Est GFR (CKD-EPI)NonAf >90 (>60 ml/min/1.73 sqM) Glucose 159 H (74-99) mg/dL Calcium 9.7 (8.4-10.2) mg/dL Phosphorus 3.6 (2.5-4.5) mg/dL Magnesium 1.7 (1.6-2.3) mg/dL Total Bilirubin 1.2 (0.2-1.3) mg/dL AST 45 (17-59) U/L ALT 49 (4-49) U/L Alkaline Phosphatase 104 (38-126) U/L Ammonia (<30) umol/L Troponin I <0.012 (0.000-0.034) ng/mL NT-Pro-B Natriuret Pep 90 pg/mL Total Protein 8.3 H (6.3-8.2) g/dL Albumin 4.9 (3.5-5.0) g/dL Lipase 90 (23-300) U/L TSH 2.430 (0.465-4.680) mIU/L Urine Color Urine Appearance (Clear) Urine pH (5.0-8.0) Ur Specific [place] (1.001-1.035) Urine Protein (Negative) Urine Glucose (UA) (Negative) Urine Ketones (Negative) Urine Blood (Negative) Urine Nitrite (Negative) Urine Bilirubin (Negative) Urine Urobilinogen (<2.0) mg/dL Ur Leukocyte Esterase (Negative) Urine RBC (0-5) /hpf Urine WBC (0-5) /hpf Ur Squamous Epith Cells (0-4) /hpf Amorphous Sediment (None) /hpf Urine Mucus (None) /hpf Serum Alcohol <10 mg/dL 12/17/23 Range/Units 01:30 WBC (3.8-10.6) k/uL RBC (4.30-5.90) m/uL Hgb (13.0-17.5) gm/dL Hct (39.0-53.0) % MCV (80.0-100.0) fL MCH (25.0-35.0) pg MCHC (31.0-37.0) g/dL RDW (11.5-15.5) % Plt Count (150-450) k/uL MPV Neutrophils % % Lymphocytes % % Monocytes % % Eosinophils % % Basophils % % Neutrophils # (1.3-7.7) k/uL Lymphocytes # (1.0-4.8) k/uL Monocytes # (0-1.0) k/uL Eosinophils # (0-0.7) k/uL Basophils # (0-0.2) k/uL Manual Slide Review RBC Morphology PT (10.0-12.5) sec INR (<1.2) APTT (22.0-30.0) sec Sodium (137-145) mmol/L Potassium (3.5-5.1) mmol/L Chloride (98-107) mmol/L Carbon Dioxide (22-30) mmol/L Anion Gap mmol/L BUN (9-20) mg/dL Creatinine (0.66-1.25) mg/dL Est GFR (CKD-EPI)AfAm (>60 ml/min/1.73 sqM) Est GFR (CKD-EPI)NonAf (>60 ml/min/1.73 sqM) Glucose (74-99) mg/dL Calcium (8.4-10.2) mg/dL Phosphorus (2.5-4.5) mg/dL Magnesium (1.6-2.3) mg/dL Total Bilirubin (0.2-1.3) mg/dL AST (17-59) U/L ALT (4-49) U/L Alkaline Phosphatase (38-126) U/L Ammonia (<30) umol/L Troponin I (0.000-0.034) ng/mL NT-Pro-B Natriuret Pep pg/mL Total Protein (6.3-8.2) g/dL Albumin (3.5-5.0) g/dL Lipase (23-300) U/L TSH (0.465-4.680) mIU/L Urine Color Yellow Urine Appearance Clear (Clear) Urine pH 6.0 (5.0-8.0) Ur Specific [place] 1.028 (1.001-1.035) Urine Protein 1+ H (Negative) Urine Glucose (UA) Negative (Negative) Urine Ketones 1+ H (Negative) Urine Blood Negative (Negative) Urine Nitrite Negative (Negative) Urine Bilirubin Negative (Negative) Urine Urobilinogen 2.0 (<2.0) mg/dL Ur Leukocyte Esterase Negative (Negative) Urine RBC 1 (0-5) /hpf Urine WBC 1 (0-5) /hpf Ur Squamous Epith Cells 1 (0-4) /hpf Amorphous Sediment Rare H (None) /hpf Urine Mucus Moderate H (None) /hpf Serum Alcohol mg/dL - EKG Data -: EKG Interpreted by Me (EKG is sinus tachycardia 110 TX 144 QRS 110 QTc 333) - Radiology Data Radiology results: report reviewed (Chest x-ray CT brain negative for acute disease), image reviewed Critical Care Time Critical Care Time: Yes Total Critical Care Time: 31 Disposition Clinical Impression: Altered mental status, Medication reaction, Tremor, Fever, Alcohol withdrawal, Opiate withdrawal, Alcohol abuse, Opiate dependence, New onset seizure Disposition: ADMITTED IP TO THIS HOSP Condition: Fair Is patient prescribed a controlled substance at d/c from ED?: No Time of Disposition: 03:40
[2023-12-17] MEDS: SODIUM CHLORIDE 0.9% 1,000 ML IV STA ×2 (00:17→01:04)
[2023-12-17] MEDS: LORazepam 2 MG/ML INJ IV STA ×2 (00:35→04:40)
[2023-12-17] MEDS: IPRATROPIUM-ALBUTEROL 3 ML NEB INHALATION STA (00:43)
--- NOTE | 2023-12-17 01:02 | XR ---
EXAMINATION TYPE: XR chest 1V portable DATE OF EXAM: 12/17/2023 COMPARISON: Chest x-ray October 25, 2023 HISTORY: Weakness and shortness of breath TECHNIQUE: Single frontal view of the chest is obtained. FINDINGS: Persistent low lung volumes with left basilar increased opacity and diffuse right lung inc reased opacity. The cardiac silhouette size is stable and within normal limits. Gas prominent bowel loops in the visualized abdomen redemonstrated. The osseous structures are intact. IMPRESSION: Low lung volumes with scattered parenchymal opacities favoring scarring redemonstrated. Areas of acute infiltrate less likely but not excluded.
[2023-12-17] MEDS: diphenhydrAMINE 50 MG/ML 1 ML VIAL IVP STA (01:04)
[2023-12-17] MEDS: MORPHINE SULFATE 4 MG/ML SYRINGE IVP STA (01:05)
[2023-12-17] MEDS ORDERED: IBUPROFEN IV 600 MG in SODIUM CHLORIDE 0.9% 100 ML IV ONE (01:19)
[2023-12-17 01:28] LABS: Partial Thromboplastin Time 24.1 sec (22.0-30.0); Prothrombin Time 11.2 sec (10.0-12.5)
[2023-12-17 01:40] LABS: Basophils % (A) 0 %; Eosinophils # (A) 0.1 k/uL (0-0.7); Eosinophils % (A) 0 %; HCT 41.1 % (39.0-53.0); HGB 13.9 gm/dL (13.0-17.5); Lymphocytes # (A) 2.2 k/uL (1.0-4.8); Lymphocytes % (A) 17 %; MCH 33.1 pg (25.0-35.0); MCHC 33.8 g/dL (31.0-37.0); Mean Platelet Volume 9.2; Monocytes # (A) 0.8 k/uL (0-1.0); Monocytes % (A) 6 %; Neutrophils # (A) 9.9 k/uL (1.3-7.7); Neutrophils % (A) 75 %; Platelet Count 335 k/uL (150-450); RBC 4.19 m/uL (4.30-5.90); RDW 13.2 % (11.5-15.5); WBC 13.1 k/uL (3.8-10.6)
[2023-12-17 01:42] LABS: MCV 98.2 fL (80.0-100.0)
[2023-12-17 01:49] LABS: ALT 49 U/L (4-49); AST 45 U/L (17-59); African American GFR (CKD) >90 (>60 ml/min/1.73 sqM); Albumin 4.9 g/dL (3.5-5.0); Alkaline Phosphatase 104 U/L (38-126); Anion Gap 18 mmol/L; Blood Urea Nitrogen 17 mg/dL (9-20); Calcium 9.7 mg/dL (8.4-10.2); Carbon Dioxide 21 mmol/L (22-30); Chloride 94 mmol/L (98-107); Glucose 159 mg/dL (74-99); Non-African American GFR(CKD) >90 (>60 ml/min/1.73 sqM); Phosphorus 3.6 mg/dL (2.5-4.5); Potassium 4.2 mmol/L (3.5-5.1); Sodium 133 mmol/L (137-145); Total Bilirubin 1.2 mg/dL (0.2-1.3); Total Protein 8.3 g/dL (6.3-8.2)
[2023-12-17 01:50] LABS: Alcohol <10 mg/dL; Lipase 90 U/L (23-300)
[2023-12-17 01:52] LABS: Amorphous Sediment,Urine Rare /hpf; Appearance,Urine Clear (Clear); Bilirubin,Urine Negative (Negative); Blood,Urine Negative (Negative); Color,Urine Yellow; Glucose,Urine (UA) Negative (Negative); Ketones,Urine 1+ (Negative); Leukocyte Esterase,Urine Negative (Negative); Mucus,Urine Moderate /hpf; Nitrite,Urine Negative (Negative); Protein,Urine 1+ (Negative); RBC,Urine 1 /hpf (0-5); Specific Gravity,Urine 1.028 (1.001-1.035); Squamous Epithelial Cell,Urine 1 /hpf (0-4); WBC,Urine 1 /hpf (0-5)
[2023-12-17] MEDS: ACETAMINOPHEN IV (For NPO) 1,000 MG in EMPTY BAG 1 BAG IVPB STA (01:54)
[2023-12-17 01:57] LABS: NT-Pro-B-Type Natriuretic Pept 90 pg/mL
[2023-12-17 02:08] LABS: RBC Morphology Normal
[2023-12-17] MEDS: IBUPROFEN IV 600 MG in SODIUM CHLORIDE 0.9% 250 ML IV ONE (02:26)
[2023-12-17 02:36] LABS: Magnesium 1.7 mg/dL (1.6-2.3)
[2023-12-17] MEDS ORDERED: IBUPROFEN 400 MG TAB PO PRN (03:39)
[2023-12-17] MEDS ORDERED: ACETAMINOPHEN TAB 325 MG TAB PO PRN (03:39)
[2023-12-17] MEDS ORDERED: NALOXONE 0.4 MG/ML 1 ML VIAL IV PRN (03:39)
[2023-12-17] MEDS ORDERED: ONDANSETRON 4 MG/2 ML VIAL IVP PRN (03:39)
--- NOTE | 2023-12-17 03:50 | CT ---
EXAM: CT Head Without Intravenous Contrast CLINICAL HISTORY: ITS.REASON CT Reason: ams TECHNIQUE: Axial computed tomography images of the head/brain without intravenous contrast. CTDI is 49.1 mGy and DLP is 1255.8 mGy-cm. This CT exam was performed using one or more of the following dose reduction techniques: automated exposure control, adjustment of the mA and/or kV according to patient size, and/or use of iterative reconstruction technique. COMPARISON: No relevant prior studies available. FINDINGS: Brain: No hemorrhage or mass effect. Ventricles: No hydrocephalus. Bones/joints: Unremarkable. Soft tissues: Unremarkable. Sinuses: No air fluid level. Mastoid air cells: Clear. IMPRESSION: No acute hemorrhage, hydrocephalus, or mass effect.
[2023-12-17] MEDS ORDERED: LORazepam 2 MG/ML INJ IV PRN (04:41)
[2023-12-17 04:53] LABS: Glucose,Whole Blood 117 mg/dL (70-110)
[2023-12-17] MEDS ORDERED: VANCOMYCIN IV PER PHARMACY 1 EACH MISC MISCELLANE PRN (05:02)
[2023-12-17] MEDS: LEVOFLOXACIN 750MG-D5W PMX 750 MG in DEXTROSE/WATER 1 150ML.BAG IVPB STA (05:06)
[2023-12-17] MEDS: levETIRAcetam IV 500 MG/5 ML VIAL IVP STA (05:19)
[2023-12-17] MEDS: SODIUM CHLORIDE 0.9% 1,000 ML IV SCH (05:19)
[2023-12-17] MEDS: THIAMINE 100 MG/ML 2 ML VIAL IM STA (05:24)
[2023-12-17 05:25] LABS: ALT 39 U/L (4-49); AST 43 U/L (17-59); African American GFR (CKD) >90 (>60 ml/min/1.73 sqM); Albumin 3.8 g/dL (3.5-5.0); Alkaline Phosphatase 65 U/L (38-126); Anion Gap 12 mmol/L; Blood Urea Nitrogen 14 mg/dL (9-20); Calcium 8.1 mg/dL (8.4-10.2); Carbon Dioxide 21 mmol/L (22-30); Chloride 101 mmol/L (98-107); Glucose 100 mg/dL (74-99); Magnesium 1.7 mg/dL (1.6-2.3); Non-African American GFR(CKD) >90 (>60 ml/min/1.73 sqM); Phosphorus 3.1 mg/dL (2.5-4.5); Sodium 134 mmol/L (137-145); Total Protein 7.1 g/dL (6.3-8.2)
[2023-12-17] MEDS: AMPICILLIN 2,000 MG in SODIUM CHLORIDE 0.9% 100 ML IVPB STA (05:25)
--- NOTE | 2023-12-17 05:25 | P.HPIM ---
History of Present Illness H&P Date: 12/17/23 Chief Complaint: Altered mental status 63-year-old male with pulmonary fibrosis oxygen dependent 3.5 L at home Patient coming in for evaluation of altered mental status family described shaking all day. He recently had some increase in his muscle relaxant otherwise no changes in his medications no history of seizures. Patient has been having some increased shortness of breath over the past few days no report of any changes in cough fevers or chills. However since arrival to the ED patient mental status has been waxing and waning with episodes where he yells out his names and other times when he seems to be confused and shaking patient was given medications in the ED for what is thought to be a seizure-like episode he was given Ativan and then was loaded with Ke ppra. At time of my evaluation patient was still shaking vigorously however he responds to tactile stimulation by opening his eyes makes very brief eye contact. He is unable to provide any meaningful history No report of GI bleeding no report of head injury no report of nausea vomiting. In the ED patient is tachycardic and febrile. review of systems Unable to obtain on exam Constitutional: Vigorously shaking confused does not follow commands opens eyes to tactile stimulation with brief eye contact Eyes: Anicteric sclerae, moist conjunctiva, Pupils equal round slightly dilated reactive to light ENMT: NC/AT Neck: Patient neck seems to be stiff as patient is vigorously shaking, no masses, or JVD No carotid bruits No thyromegaly Lungs: Bilateral inspiratory rales at lung bases Clear to percussion Normal respiratory effort, no accessory muscle use Cardiovascular: Heart tachycardia, No murmurs, gallops, or rubs No peripheral edema Abdominal: Soft Nontender, no guarding, rebound or rigidity Abdomen moving with respiration Normoactive bowel sounds No hepatomegaly, No splenomegaly No palpable mass No abdominal wall hernia noted Skin: Stage II nonblanching area over the coccyx no open wounds no drainage no discharge no induration Extremities: No digital cyanosis Pedal pulses intact and symmetrical Radial pulses intact and symmetrical No calf tenderness Psychiatric: Confused unable to follow commands, opens eyes makes brief eye contact to tactile stimulation Neuro vigorously shaking unable to assess strength however he is spontaneously moving all 4 extremities Past Medical History Past Medical History: Musculoskeletal Disorder Additional Past Medical History / Comment(s): ETOH abuse, DTs, chronic low back pain/herniated discs/scoliosis/spinal stenosis, right shoulder, pulmonary fibrosis, Home O2 3L History of Any Multi-Drug Resistant Organisms: None Reported Past Surgical History: Orthopedic Surgery Additional Past Surgical History / Comment(s): R ankle fx with surgical repair- pin in and out, back injections at [facility]. Left knee Past Anesthesia/Blood Transfusion Reactions: No Reported Reaction Additional Past Anesthesia/Blood Transfusion Reaction / Comment(s): Pt has never received blood. Past Psychological History: Anxiety, Depression Smoking Status: Never smoker Past Alcohol Use History: Abuse, Daily, Heavy Past Drug Use History: None Reported - Past Family History Father Family Medical History: Dementia Additional Family Medical History / Comment(s): Father is . Mother Family Medical History: Cancer Additional Family Medical History / Comment(s): Mother at age 64yrs of pancreatic cancer. Medications and Allergies Home Medications Medication Instructions Recorded Confirmed Type Citalopram Hydrobromide [CeleXA] 40 mg PO DAILY 03/25/21 10/25/23 History QUEtiapine [SEROquel] 50 mg PO AC-BID@0800,1700 03/25/21 10/25/23 History Folic Acid 1 mg PO DAILY #30 tab 03/30/21 10/25/23 Rx Mupirocin 2% Oint [Bactroban 2% 1 applic TOPICAL Q2D 10/14/23 10/25/23 History Oint] busPIRone HCL [Buspar] 7.5 mg PO BID@0800,1700 10/14/23 10/25/23 History QUEtiapine [SEROquel] 100 mg PO HS 10/18/23 10/25/23 History Lactulose [Cephulac] 20 gm PO BID PRN ml 10/21/23 10/25/23 Rx Simethicone Chew [Mylicon Chew] 40 mg PO QID tab 10/21/23 10/25/23 Rx Thiamine [Vitamin B-1] 100 mg PO DAILY #7 tablet 10/21/23 10/25/23 Rx Albuterol Nebulized [Ventolin 2.5 mg INHALATION RT-TID@08,12,17 10/25/23 10/25/23 History Nebulized] Ensure Enlive 237 ml PO TID@0800,1200,1700 10/25/23 10/25/23 History HYDROcodone/APAP 5-325MG [[place]erson 1 tab PO Q6HR PRN 10/25/23 10/25/23 History 5-325] LORazepam [Ativan] 0.5 mg PO DIRECTED PRN 10/25/23 10/25/23 History LORazepam [Ativan] 0.5 mg PO QID@00,06,12,18 10/25/23 10/25/23 History Magnesium Hydroxide [Milk of 7,200 mg PO DAILY PRN 10/25/23 10/25/23 History Magnesia Concentrate] Multivitamins, Thera [Multivitamin 1 tab PO DAILY 10/25/23 10/25/23 History (formulary)] Na Phos,M-B/Na Phos,Di-Ba [Fleet 133 ml RECTAL DAILY PRN 10/25/23 10/25/23 History Adult] Nitroglycerin Sl Tabs [Nitrostat] 0.4 mg SUBLINGUAL Q5M PRN 10/25/23 10/25/23 History Sennosides [Senokot] 17.2 mg PO BID@0800,1700 10/25/23 10/25/23 History bisacodyL [Dulcolax] 10 mg RECTAL DAILY PRN 10/25/23 10/25/23 History Allergies Allergy/AdvReac Type Severity Reaction Status Date / Time No Known Allergies Allergy Verified 10/25/23 09:01 Physical Exam Vitals: Vital Signs Temp Pulse Resp BP Pulse Ox 12/17/23 04:59 98.4 F 12/17/23 03:00 98 22 113/86 95 12/17/23 02:00 102 H 20 109/92 94 L 12/17/23 01:57 118 H 25 H 109/92 94 L 12/17/23 01:19 100.3 F H 12/17/23 01:00 121 H 22 112/83 94 L 12/17/23 00:53 120 H 12/17/23 00:46 115 H 20 12/16/23 23:37 97.1 F L 122 H 28 H 85/57 87 L Intake and Output 12/16/23 12/16/23 12/17/23 14:59 22:59 06:59 Other: Weight 52.163 kg Results CBC & Chem 7: 12/17/23 00:15 12/17/23 00:15 Labs: Abnormal Lab Results - Last 24 Hours (Table) 12/17/23 12/17/23 12/17/23 Range/Units 00:15 00:15 00:15 WBC 13.1 H (3.8-10.6) k/uL RBC 4.19 L (4.30-5.90) m/uL Neutrophils # 9.9 H (1.3-7.7) k/uL Sodium 133 L (137-145) mmol/L Chloride 94 L (98-107) mmol/L Carbon Dioxide 21 L (22-30) mmol/L Creatinine 0.52 L (0.66-1.25) mg/dL Glucose 159 H (74-99) mg/dL POC Glucose (mg/dL) (70-110) mg/dL Ammonia 32 H (<30) umol/L Total Protein 8.3 H (6.3-8.2) g/dL Urine Protein (Negative) Urine Ketones (Negative) Amorphous Sediment (None) /hpf Urine Mucus (None) /hpf 12/17/23 12/17/23 Range/Units 01:30 04:43 WBC (3.8-10.6) k/uL RBC (4.30-5.90) m/uL Neutrophils # (1.3-7.7) k/uL Sodium (137-145) mmol/L Chloride (98-107) mmol/L Carbon Dioxide (22-30) mmol/L Creatinine (0.66-1.25) mg/dL Glucose (74-99) mg/dL POC Glucose (mg/dL) 117 H (70-110) mg/dL Ammonia (<30) umol/L Total Protein (6.3-8.2) g/dL Urine Protein 1+ H (Negative) Urine Ketones 1+ H (Negative) Amorphous Sediment Rare H (None) /hpf Urine Mucus Moderate H (None) /hpf Assessment and Plan Assessment: 63-year-old male known to have pulmonary fibrosis on home oxygen 3.5 L was brought in today for worsening mental status with confusion and episodes of shaking and hallucinations. Family also reported shortness of breath however patient known to have pulmonary fibrosis while in the ED patient was noted to have episodes of vigorous shaking seizure-like activity was given Ativan and then loaded with Keppra I discussed case with ED doctor and accepted the admission for altered mental status rule out underlying seizure-like activity versus infectious process including meningitis with anticipated length of stay more than 2 midnights Acute metabolic encephalopathy Chronic hypoxic respiratory failure secondary to pulmonary fibrosis Sepsis possible underlying pneumonia versus meningitis among others unknown source of infection at this time Chest x-ray showed diffuse opacities which reflect his history of interstitial pulmonary fibrosis however infectious process could not be ruled out CT of the brain no acute intracranial pathology Follow-up blood cultures Check urine analysis Consider lumbar tap Start patient on vancomycin dosing by pharmacy Rocephin 2 g IV piggyback BID Ampicillin 2 g IV piggyback every 4 hours Seizure precautions Patient loaded with Keppra Ativan 2 mg IV push as needed for seizures Monitor vital signs Cardiac monitoring Neuro consultation ID consultation ICU consultation Check urine analysis IV fluid hydration resuscitation status post 2 L septic bolus follow-up with normal saline at 100 cc/h Check acute respiratory viral panel Alcohol level negative Ammonia 32 Alcohol abuse not clear when was his last alcoholic drink His symptoms could possibly be explained by alcohol withdrawal if infectious process was ruled out Monitor for alcohol withdrawal Ativan per CIWA scale Thiamine daily Blood work showed white count of 13.1, patient febrile and tachycardic Renal function unremarkable sodium 133 potassium 4.2 BUN 17 creatinine 0.5 Full code DVT prophylaxis heparin subcu 3 times daily GI prophylaxis Protonix 40 mg IV push daily Disposition to the ICU Guarded prognosis
[2023-12-17 05:26] LABS: Partial Thromboplastin Time 24.4 sec (22.0-30.0); Prothrombin Time 11.2 sec (10.0-12.5); VBG PH 7.28 (7.31-7.41)
[2023-12-17] MEDS: DEXTROSE 5%-0.45% NACL 1,000 ML IV SCH (05:26)
[2023-12-17 05:28] LABS: Potassium 4.8 mmol/L (3.5-5.1)
[2023-12-17 05:29] LABS: Basophils % (A) 0 %; Eosinophils # (A) 0.1 k/uL (0-0.7); Eosinophils % (A) 0 %; HCT 38.5 % (39.0-53.0); HGB 12.8 gm/dL (13.0-17.5); Lactic Acid, Venous 5.3 mmol/L (0.7-2.0); Lymphocytes # (A) 2.4 k/uL (1.0-4.8); Lymphocytes % (A) 18 %; MCH 33.5 pg (25.0-35.0); MCHC 33.1 g/dL (31.0-37.0); Monocytes # (A) 0.8 k/uL (0-1.0); Monocytes % (A) 6 %; Neutrophils # (A) 9.8 k/uL (1.3-7.7); Neutrophils % (A) 74 %; Platelet Count 270 k/uL (150-450); RBC 3.81 m/uL (4.30-5.90); RDW 13.4 % (11.5-15.5); WBC 13.3 k/uL (3.8-10.6)
[2023-12-17] MEDS: CYPROHEPTADINE 4 MG TABLET PO STA (05:33)
[2023-12-17] MEDS: VANCOMYCIN 1,000 MG in SODIUM CHLORIDE 0.9% 250 ML IVPB STA (06:07)
[2023-12-17 08:01] LABS: Glucose,Whole Blood 98 mg/dL (70-110)
[2023-12-17] MEDS: PANTOPRAZOLE 40 MG/10 ML VIAL IVP SCH (08:15)
[2023-12-17] MEDS: HEPARIN SODIUM,PORCINE 5,000 UNIT/ML 1 ML VIAL SQ SCH (08:15)
[2023-12-17 08:46] LABS: ABG Base Excess -0.5 mmol/L; ABG HCO3 25 mmol/L (21-25); ABG PCO2 44 mmHg (35-45); ABG PH 7.36 (7.35-7.45); ABG PO2 61 mmHg (83-108); ABG TCO2 26 mmol/L (19-24); Allen Test Performed? Yes
[2023-12-17] MEDS: LORazepam 2 MG/ML INJ IV PRN ×3 (09:26→21:21)
[2023-12-17] MEDS: PIPERACILLIN-TAZOBACTAM 3.375 GM in SODIUM CHLORIDE 0.9% 100 ML IVPB SCH (09:28)
[2023-12-17] MEDS: AMPICILLIN 2,000 MG in SODIUM CHLORIDE 0.9% 100 ML IVPB SCH (11:30)
--- NOTE | 2023-12-17 12:57 | P.CNPUL ---
History of Present Illness Consult date: 12/17/23 History of present illness: This is a 63-year-old male patient was brought into the ICU because of altered mentation. The patient has history of advanced pulmonary fibrosis. The patient has been diagnosed having IPF few years back and the patient has been treated with Ofev and he has severe restrictive lung disease with an FVC of 45% predicted and is also oxygen dependent at 3 L/min nasal cannula. He has history of alcoholism and the patient is chronically debilitated. He drinks alcohol excessively approximately 7 beers a day and he also drinks 1/5 of peppermint schnapps every day. The patient was in the hospital back in October 2023 and at that time the patient sustained acute hypoxic respiratory failure and required intubation mechanical ventilation. Note that during his hospital stay, the patient also sustained some alcohol withdrawal symptoms. He was ultimately stabilized and he was discharged to be readmitted yesterday due to diminished level of consciousness, increased shakiness, confusion, unable to communicate and unable to provide appropriate history. On examination, the patient r shows signs of significant debility, muscle wasting and significant loss of total body muscle mass and malnutrition and deconditioning. The patient was moved to the intensive care unit. Earlier this morning, I had a sitter at the bedside and I was able to briefly communicate with the patient. Nevertheless, he was obviously encephalopathic. He was able to maintain eye contact. He was saying few words and following simple commands and following that and the patient became more agitated he was given Ativan and he became more rested. Obviously, the shakiness is not a sign of seizure at this point in time. He was given Keppra overnight. At time of my evaluation the patient was able to communicate even while he was having those shakes. It is possible that this may be some signs of tremors, delirium tremens this been going on. The viral screen has been negative. Likely his level was at 2.9. The blood gas was done overnight showed a pH of 7.36 with a pCO2 of 44 and pO2 of 61 and this was an FiO2 of 44%. The patient's WBC count at 15.3, it was 4.8 and platelet count of 270. Normal coagulation profile. BUN is at 40 with a creatinine of 0.5 and sodium levels at 134 with a potassium level of 4.8. LFTs are normal. UA is showing possible blood and +1 glucose. No signs of any infection. Alcohol level less than 10. The chest x-ray is consistent with pulmonary fibrosis and the patient has small lung volumes bilaterally and scattered pulmonary opacities favor scarring. An acute superimposed process cannot be completely ruled out. CAT scan of the brain that was done in the emergency showed no acute hemorrhage hydrocephalus or mass effects. At this point in time, the patient is on 5 L of oxygen by nasal cannula with a pulse ox of 100%. Hemodynamically stable. No reported fever. There was a temperature max of 100.2 during this current admission. Currently afebrile. Cardiac rhythm is sinus. Review of Systems ROS unobtainable: due to mental status Past Medical History Past Medical History: Musculoskeletal Disorder Additional Past Medical History / Comment(s): ETOH abuse, DTs, chronic low back pain/herniated discs/scoliosis/spinal stenosis, right shoulder, pulmonary fibrosis, Home O2 3L History of Any Multi-Drug Resistant Organisms: None Reported Past Surgical History: Orthopedic Surgery Additional Past Surgical History / Comment(s): R ankle fx with surgical repair- pin in and out, back injections at [facility]. Left knee Past Anesthesia/Blood Transfusion Reactions: No Reported Reaction Additional Past Anesthesia/Blood Transfusion Reaction / Comment(s): Pt has never received blood. Past Psychological History: Anxiety, Depression Smoking Status: Never smoker Past Alcohol Use History: Abuse, Daily, Heavy Past Drug Use History: None Reported - Past Family History Father Family Medical History: Dementia Additional Family Medical History / Comment(s): Father is . Mother Family Medical History: Cancer Additional Family Medical History / Comment(s): Mother at age 64yrs of pancreatic cancer. Medications and Allergies Home Medications Medication Instructions Recorded Confirmed Type Citalopram Hydrobromide [CeleXA] 40 mg PO DAILY 03/25/21 12/17/23 History QUEtiapine [SEROquel] 50 mg PO TID@0800,1400,2000 03/25/21 12/17/23 History Folic Acid 1 mg PO DAILY #30 tab 03/30/21 12/17/23 Rx busPIRone HCL [Buspar] 7.5 mg PO BID 10/14/23 12/17/23 History Cbd Gummies 20mg 10 - 20 mg PO QID PRN 12/17/23 12/17/23 History Cyclobenzaprine [Flexeril] 5 - 10 mg PO Q8H PRN 12/17/23 12/17/23 History Medihoney 80% Gel 1 applic TOPICAL DAILY 12/17/23 12/17/23 History Megestrol Acetate 400 mg PO BID 12/17/23 12/17/23 History Melatonin 2 mg PO HS 12/17/23 12/17/23 History Melatonin 2 mg PO HS PRN 12/17/23 12/17/23 History Allergies Allergy/AdvReac Type Severity Reaction Status Date / Time No Known Allergies Allergy Verified 12/17/23 12:40 Physical Exam Vitals: Vital Signs Temp Pulse Resp BP Pulse Ox 12/17/23 08:35 98.1 F 117 H 32 H 140/112 82 L 12/17/23 07:36 96 22 106/78 98 12/17/23 06:26 101 H 27 H 103/78 96 12/17/23 06:00 105 H 26 H 106/77 99 12/17/23 05:30 105 H 28 H 139/94 99 12/17/23 05:00 124 H 34 H 114/83 100 12/17/23 04:59 98.4 F 12/17/23 04:00 95 26 H 111/73 96 12/17/23 03:30 101 H 30 H 115/69 96 12/17/23 03:00 98 22 113/86 95 12/17/23 02:00 102 H 20 109/92 94 L 12/17/23 01:57 118 H 25 H 109/92 94 L 12/17/23 01:19 100.3 F H 12/17/23 01:00 121 H 22 112/83 94 L 12/17/23 00:53 120 H 12/17/23 00:46 115 H 20 12/16/23 23:37 97.1 F L 122 H 28 H 85/57 87 L Intake and Output 12/16/23 12/17/23 12/17/23 22:59 06:59 14:59 Output Total 200 Balance -200 Output: Urine 200 Other: Weight 52.163 kg General appearance the patient is restless in bed, having episodic tremors and shakiness. These are not automatic movements. He is able to communicate and maintain eye contact throughout the shakes. I suspect that the patient is encephalopathic and shaking probably due to alcohol withdrawal. Other drug related side effects cannot be completely ruled out. The patient is poorly maintained, malnourished, has significant loss of total body muscle mass. Head exam was generally normal. There was no scleral icterus or corneal arcus. Mucous membranes were moist.. Neck was supple and without jugular venous distension, thyromegaly, or carotid bruits. Carotids were easily palpable bilaterally. There was no adenopathy. No evidence of any neck stiffness. Lung sounds are diminished bilaterally and the patient has coarse clearance in the mid and lower lung urbano bilaterally. Cardiac exam revealed the PMI to be normally situated and sized. The rhythm was regular and no extrasystoles were noted during several minutes of auscultation. The first and second heart sounds were normal and physiologic splitting of the second heart sound was noted. There were no murmurs, rubs, clicks, or gallops. Abdominal exam revealed normal bowel sounds. The abdomen was soft, non-tender, and without masses, organomegaly, or appreciable enlargement of the abdominal aorta. Examination of the extremities revealed easily palpable radial, femoral and pedal pulses. There was no cyanosis, clubbing or edema. Significant muscle atrophy in all 4 extremities along with temporal wasting. Neurologically, the patient's mentation is confused and the patient is able to follow some simple commands. Unable to maintain a conversation. His speech is garbled. He is showing signs of weakness in all 4 extremities. He has tremors. These are not automatic movements. No motor or focal motor neurologic deficits. Pupils are equal reactive to light. No facial asymmetry. Positive c ough and gag. Examination of the skin revealed no evidence of significant rashes, suspicious appearing nevi or other concerning lesions. Results - Laboratory Findings CBC and BMP: 12/17/23 04:50 12/17/23 04:50 ABG ABG pH 7.36 (7.35-7.45) 12/17/23 08:44 ABG pCO2 44 mmHg (35-45) 12/17/23 08:44 ABG pO2 61 mmHg (83-108) L 12/17/23 08:44 ABG O2 Saturation 91.0 % (94-97) L 12/17/23 08:44 PT/INR, D-dimer PT 11.2 sec (10.0-12.5) 12/17/23 04:50 INR 1.0 (<1.2) 12/17/23 04:50 Abnormal lab findings: Abnormal Labs 12/17/23 12/17/23 12/17/23 00:15 00:15 00:15 WBC 13.1 H RBC 4.19 L Hgb Hct MCV Neutrophils # 9.9 H ABG pO2 ABG Total CO2 ABG O2 Saturation VBG pH VBG HCO3 Sodium 133 L Chloride 94 L Carbon Dioxide 21 L Creatinine 0.52 L Glucose 159 H POC Glucose (mg/dL) Plasma Lactic Acid Cooper Calcium Ammonia 32 H Total Protein 8.3 H Urine Protein Urine Ketones Amorphous Sediment Urine Mucus 12/17/23 12/17/23 12/17/23 01:30 04:43 04:50 WBC 13.3 H RBC 3.81 L Hgb 12.8 L Hct 38.5 L MCV 101.0 H Neutrophils # 9.8 H ABG pO2 ABG Total CO2 ABG O2 Saturation VBG pH VBG HCO3 Sodium Chloride Carbon Dioxide Creatinine Glucose POC Glucose (mg/dL) 117 H Plasma Lactic Acid Cooper Calcium Ammonia Total Protein Urine Protein 1+ H Urine Ketones 1+ H Amorphous Sediment Rare H Urine Mucus Moderate H 12/17/23 12/17/23 12/17/23 04:50 04:50 04:50 WBC RBC Hgb Hct MCV Neutrophils # ABG pO2 ABG Total CO2 ABG O2 Saturation VBG pH 7.28 L VBG HCO3 22 L Sodium 134 L Chloride Carbon Dioxide 21 L Creatinine 0.51 L Glucose 100 H POC Glucose (mg/dL) Plasma Lactic Acid Cooper 5.3 H* Calcium 8.1 L Ammonia Total Protein Urine Protein Urine Ketones Amorphous Sediment Urine Mucus 12/17/23 12/17/23 08:18 08:44 WBC RBC Hgb Hct MCV Neutrophils # ABG pO2 61 L ABG Total CO2 26 H ABG O2 Saturation 91.0 L VBG pH VBG HCO3 Sodium Chloride Carbon Dioxide Creatinine Glucose POC Glucose (mg/dL) Plasma Lactic Acid Cooper 2.9 H* Calcium Ammonia Total Protein Urine Protein Urine Ketones Amorphous Sediment Urine Mucus - Diagnostic Findings Chest x-ray: image reviewed Assessment and Plan Plan: Altered mental status, history of drug withdrawal effect including possibility of withdrawal from alcohol as the patient is a history of alcoholism and has had previous history of delirium tremors. Other drug-related encephalopathy cannot be completely ruled out. Metabolic encephalopathy and infection encephalopathy cannot be completely ruled out. CAT scan of the brain is negative. Awaiting neuroconsult. The tremors that the patient is encountering is not representation of any seizure activity. Acute hypoxic respiratory failure and the patient has been on O2 at 5 L/min nasal cannula. The patient obviously is more hypoxic compared to his baseline. Consider superinfection/aspiration IPF with chronic hypoxic respiratory failure typically maintained on oxygen 3 L/min nasal cannula maintained on outpatient basis Scoliosis of the spine along with spinal stenosis Osteoarthritis Chronic back pain Extreme medical debility, significant loss of total body muscle mass and signs of hyponutrition assessment nutrition Plan Keep the patient on oxygen at 5 L/min nasal cannula Ativan for signs of any delirium tremors and shaking Zosyn and vancomycin as an empiric antibiotic coverage pending further cultures Check procalcitonin level Hydrate the patient with normal saline at rate of 130 cc an hour Management of Keppra per neurology. No indication for any seizure activity at this point in time. Heparin subcu for DVT prophylaxis Aspiration precautions Check ammonia level Hold the rest of the home medication including Seroquel and BuSpar at this point in time. Will continue to follow make further recommendations based on the progress. Time with Patient: Greater than 30
[2023-12-17] MEDS: VANCOMYCIN 1,000 MG in SODIUM CHLORIDE 0.9% 250 ML IVPB SCH (16:58)
[2023-12-17] MEDS: levETIRAcetam IV 500 MG/5 ML VIAL IVP SCH (16:59)
[2023-12-17 18:42] LABS: Amphetamine Screen,Urine Not Detected (NotDetected); Barbiturate Screen,Urine Not Detected (NotDetected); Benzodiazepines Screen,Urine Detected (NotDetected); Cocaine Screen,Urine Not Detected (NotDetected); Methadone Screen, Urine Not Detected (NotDetected); Opiate Screen,Urine Detected (NotDetected); Oxycodone Screen, Urine Not Detected (NotDetected); Phencyclidine Screen,Urine Not Detected (NotDetected); Tricyclic Antidepressant,Urine Not Detected (NotDetected); Urn Cannabinoid Scrn Detected (NotDetected)
--- NOTE | 2023-12-17 22:54 | P.CONS ---
History of Present Illness - Reason for Consult Consult date: 12/17/23 Fever Requesting physician: Giles Llanes - Chief Complaint Mental status changes x 1 day - History of Present Illness Patient is a 63-year-old male with a past medical history significant for EtOH abuse DTs pulmonary fibrosis on home O2 recent admission to the hospital treated for DTs patient has been brought back to the hospital for evaluation of altered mental status described by family shaking all day in this patient with no history of seizure disorder also noticed to have increasing shortness of breath did not mention any worsening cough fever or any chills with the symptoms the patient has been brought into the hospital patient on presentation to the hospital did have a low-grade fever 100.3 F patient was tachycardic but not hypotensive mild hypoxemia with O2 sats of 87% on room air currently on 6 L nasal cannula oxygen patient has been admitted to ICU he did have white count of 13.1 with a left shift kidney function has been normal liver enzymes are normal urine has been negative urine drug screen was positive for opiates benzos and marijuana influenza RSV COVID testing was negative chest x- ray low lung volumes scattered parenchymal opacity areas of acute infiltrate less likely but not excluded patient has been started on vancomycin and Zosyn with concern for possible aspiration pneumonia infectious disease was consulted for further management of antibiotic therapy most information has been obtained from review the chart talking to the nursing staff that the patient unable to provide any history Review of Systems Positive points has been mentioned in HPI complete review could not be obtained because of his underlying mental status Past Medical History Past Medical History: Musculoskeletal Disorder Additional Past Medical History / Comment(s): ETOH abuse, DTs, chronic low back pain/herniated discs/scoliosis/spinal stenosis, right shoulder, pulmonary fibrosis, Home O2 3L History of Any Multi-Drug Resistant Organisms: None Reported Past Surgical History: Orthopedic Surgery Additional Past Surgical History / Comment(s): R ankle fx with surgical repair- pin in and out, back injections at [facility]. Left knee Past Anesthesia/Blood Transfusion Reactions: No Reported Reaction Additional Past Anesthesia/Blood Transfusion Reaction / Comm: Pt has never received blood. Past Psychological History: Anxiety, Depression Smoking Status: Never smoker Past Alcohol Use History: Abuse, Daily, Heavy Past Drug Use History: None Reported - Past Family History Father Family Medical History: Dementia Additional Family Medical History / Comment(s): Father is . Mother Family Medical History: Cancer Additional Family Medical History / Comment(s): Mother at age 64yrs of pancreatic cancer. Medications and Allergies Home Medications Medication Instructions Recorded Confirmed Type Citalopram Hydrobromide [CeleXA] 40 mg PO DAILY 03/25/21 12/17/23 History Folic Acid 1 mg PO DAILY #30 tab 03/30/21 12/17/23 Rx busPIRone HCL [Buspar] 7.5 mg PO BID 10/14/23 12/17/23 History Cbd Gummies 20mg 10 - 20 mg PO QID PRN 12/17/23 12/17/23 History Medihoney 80% Gel 1 applic TOPICAL DAILY 12/17/23 12/17/23 History Megestrol Acetate 400 mg PO BID 12/17/23 12/17/23 History Melatonin 2 mg PO HS 12/17/23 12/17/23 History Melatonin 2 mg PO HS PRN 12/17/23 12/17/23 History ALPRAZolam [Xanax] 0.5 mg PO TID #9 tab 12/28/23 Rx Acetaminophen Tab [Tylenol] 650 mg PO Q6HR PRN tab 12/28/23 Rx Losartan [Cozaar] 50 mg PO DAILY #30 tab 12/28/23 Rx Metoprolol Tartrate [Lopressor] 12.5 mg PO BID #60 tab 12/28/23 Rx Morphine Sulfate 15 mg PO Q6H 3 Days #12 tab 12/28/23 Rx predniSONE See Taper PO DIRECTED #30 tab 12/28/23 Rx Allergies Allergy/AdvReac Type Severity Reaction Status Date / Time No Known Allergies Allergy Verified 12/17/23 12:40 Physical Exam Vitals: Vital Signs Temp Pulse Resp BP Pulse Ox 12/17/23 12:12 99.7 F H 99 25 H 109/69 100 12/17/23 11:29 101 H 19 100/64 100 12/17/23 10:08 105 H 29 H 119/73 97 12/17/23 09:19 120 H 32 H 167/65 97 12/17/23 08:35 98.1 F 117 H 32 H 140/112 82 L 12/17/23 08:20 29 H 12/17/23 07:36 96 22 106/78 98 12/17/23 06:26 101 H 27 H 103/78 96 12/17/23 06:00 105 H 26 H 106/77 99 12/17/23 05:30 105 H 28 H 139/94 99 12/17/23 05:00 124 H 34 H 114/83 100 12/17/23 04:59 98.4 F 12/17/23 04:00 95 26 H 111/73 96 12/17/23 03:30 101 H 30 H 115/69 96 12/17/23 03:00 98 22 113/86 95 12/17/23 02:00 102 H 20 109/92 94 L 12/17/23 01:57 118 H 25 H 109/92 94 L 12/17/23 01:19 100.3 F H 12/17/23 01:00 121 H 22 112/83 94 L 12/17/23 00:53 120 H 12/17/23 00:46 115 H 20 12/16/23 23:37 97.1 F L 122 H 28 H 85/57 87 L Intake and Output 12/16/23 12/17/23 12/17/23 22:59 06:59 14:59 Intake Total 490 Output Total 300 Balance 190 Intake: IV 490 Piperacillin-Tazobactam 3 100 .375 gm In Sodium Chloride 0.9% 100 ml @ 25 mls/hr IVPB Q8HR ИРИНА Rx# :[id number] Sodium Chloride 0.9% 1, 390 000 ml @ 130 mls/hr IV . Q7H42M [facility] Rx#:[id number] Output: Urine 300 Other: Voiding Method Indwelling Catheter Weight 52.163 kg GENERAL DESCRIPTION: Middle-aged male lying in bed, no distress. No tachypnea or accessory muscle of respiration use. HEENT: Shows Pallor , no scleral icterus. Oral mucous membrane is dry. NECK: Trachea central, no thyromegaly. LUNGS: Unlabored breathing. Coarse breath sounds bilaterally HEART: S1, S2, regular rate and rhythm. No loud murmur ABDOMEN: Soft, no tenderness , guarding or rigidity, no organomegaly EXTREMITIES: No edema of feet. SKIN: No rash, NEUROLOGICAL: The patient is lethargic but arousable orientation cannot be determined Results CBC & Chem 7: 12/27/23 09:37 12/27/23 09:37 Labs: Abnormal Lab Results - Last 24 Hours (Table) 12/17/23 12/17/23 12/17/23 Range/Units 00:15 00:15 00:15 WBC 13.1 H (3.8-10.6) k/uL RBC 4.19 L (4.30-5.90) m/uL Hgb (13.0-17.5) gm/dL Hct (39.0-53.0) % MCV (80.0-100.0) fL Neutrophils # 9.9 H (1.3-7.7) k/uL ABG pO2 (83-108) mmHg ABG Total CO2 (19-24) mmol/L ABG O2 Saturation (94-97) % VBG pH (7.31-7.41) VBG HCO3 (24-28) mmol/L Sodium 133 L (137-145) mmol/L Chloride 94 L (98-107) mmol/L Carbon Dioxide 21 L (22-30) mmol/L Creatinine 0.52 L (0.66-1.25) mg/dL Glucose 159 H (74-99) mg/dL POC Glucose (mg/dL) (70-110) mg/dL Plasma Lactic Acid Cooper (0.7-2.0) mmol/L Calcium (8.4-10.2) mg/dL Ammonia 32 H (<30) umol/L Total Protein 8.3 H (6.3-8.2) g/dL Urine Protein (Negative) Urine Ketones (Negative) Amorphous Sediment (None) /hpf Urine Mucus (None) /hpf 12/17/23 12/17/23 12/17/23 Range/Units 01:30 04:43 04:50 WBC 13.3 H (3.8-10.6) k/uL RBC 3.81 L (4.30-5.90) m/uL Hgb 12.8 L (13.0-17.5) gm/dL Hct 38.5 L (39.0-53.0) % MCV 101.0 H (80.0-100.0) fL Neutrophils # 9.8 H (1.3-7.7) k/uL ABG pO2 (83-108) mmHg ABG Total CO2 (19-24) mmol/L ABG O2 Saturation (94-97) % VBG pH (7.31-7.41) VBG HCO3 (24-28) mmol/L Sodium (137-145) mmol/L Chloride (98-107) mmol/L Carbon Dioxide (22-30) mmol/L Creatinine (0.66-1.25) mg/dL Glucose (74-99) mg/dL POC Glucose (mg/dL) 117 H (70-110) mg/dL Plasma Lactic Acid Cooper (0.7-2.0) mmol/L Calcium (8.4-10.2) mg/dL Ammonia (<30) umol/L Total Protein (6.3-8.2) g/dL Urine Protein 1+ H (Negative) Urine Ketones 1+ H (Negative) Amorphous Sediment Rare H (None) /hpf Urine Mucus Moderate H (None) /hpf 12/17/23 12/17/23 12/17/23 Range/Units 04:50 04:50 04:50 WBC (3.8-10.6) k/uL RBC (4.30-5.90) m/uL Hgb (13.0-17.5) gm/dL Hct (39.0-53.0) % MCV (80.0-100.0) fL Neutrophils # (1.3-7.7) k/uL ABG pO2 (83-108) mmHg ABG Total CO2 (19-24) mmol/L ABG O2 Saturation (94-97) % VBG pH 7.28 L (7.31-7.41) VBG HCO3 22 L (24-28) mmol/L Sodium 134 L (137-145) mmol/L Chloride (98-107) mmol/L Carbon Dioxide 21 L (22-30) mmol/L Creatinine 0.51 L (0.66-1.25) mg/dL Glucose 100 H (74-99) mg/dL POC Glucose (mg/dL) (70-110) mg/dL Plasma Lactic Acid Cooper 5.3 H* (0.7-2.0) mmol/L Calcium 8.1 L (8.4-10.2) mg/dL Ammonia (<30) umol/L Total Protein (6.3-8.2) g/dL Urine Protein (Negative) Urine Ketones (Negative) Amorphous Sediment (None) /hpf Urine Mucus (None) /hpf 12/17/23 12/17/23 Range/Units 08:18 08:44 WBC (3.8-10.6) k/uL RBC (4.30-5.90) m/uL Hgb (13.0-17.5) gm/dL Hct (39.0-53.0) % MCV (80.0-100.0) fL Neutrophils # (1.3-7.7) k/uL ABG pO2 61 L (83-108) mmHg ABG Total CO2 26 H (19-24) mmol/L ABG O2 Saturation 91.0 L (94-97) % VBG pH (7.31-7.41) VBG HCO3 (24-28) mmol/L Sodium (137-145) mmol/L Chloride (98-107) mmol/L Carbon Dioxide (22-30) mmol/L Creatinine (0.66-1.25) mg/dL Glucose (74-99) mg/dL POC Glucose (mg/dL) (70-110) mg/dL Plasma Lactic Acid Cooper 2.9 H* (0.7-2.0) mmol/L Calcium (8.4-10.2) mg/dL Ammonia (<30) umol/L Total Protein (6.3-8.2) g/dL Urine Protein (Negative) Urine Ketones (Negative) Amorphous Sediment (None) /hpf Urine Mucus (None) /hpf Assessment and Plan (1) Sepsis Status: Acute Code(s): A41.9 - SEPSIS, UNSPECIFIED ORGANISM SNOMED Code(s): 02278223 (2) Aspiration pneumonia Status: Acute Code(s): J69.0 - PNEUMONITIS DUE TO INHALATION OF FOOD AND VOMIT SNOMED Code(s): 969776648 Plan: 1patient presented to hospital with sepsis in this patient who did have fever tachycardia elevated white count concerning for possible aspiration pneumonitis underlying [employer] infection less likely cannot entirely excluded abdomen was soft on clinical examination and no evidence of any cellulitis urine has been negative 2-we will try to obtain a sputum for Gram stain culture check a CRP and a procalcitonin level 3-awaiting neuro evaluation and need for LP 4-patient covered with broad-spectrum antibiotics in the form of vancomycin and Zosyn however need to watch his kidney function closely with this combination We will follow on clinical condition and cultures to further adjust medication if needed Thank you for this consultation we will follow the patient along with you Dictation was produced using [employer] software. please excuse any grammatical, word or spelling errors. Time with Patient: Greater than 30
[2023-12-18 00:53] LABS: Glucose,Whole Blood 78 mg/dL (70-110)
[2023-12-18] MEDS: ACETAMINOPHEN IV (For NPO) 1,000 MG in EMPTY BAG 1 BAG IVPB ONE (02:04)
[2023-12-18] MEDS: DEXTROSE 50% SYRINGE 50 ML IVP STA (02:06)
[2023-12-18 06:23] LABS: Glucose,Whole Blood 82 mg/dL (70-110)
--- NOTE | 2023-12-18 06:43 | XR ---
EXAMINATION TYPE: XR chest 1V DATE OF EXAM: 12/18/2023 COMPARISON: 12/17/2023 HISTORY: Shortness of breath TECHNIQUE: Single frontal view of the chest is obtained. FINDINGS: There is marked interval worsening in the diffuse airspace/consolidative opacity involving the majori ty of the right lung. There is a partially consolidated/airspace opacity in the left lung, in the mid -lower lung zones essentially unchanged compared to previous. There is no pneumothorax. The heart size is normal. The osseous structures are intact IMPRESSION: Significant interval worsening in the acute cardiopulmonary disease, right greater than left.
--- NOTE | 2023-12-18 08:59 | P.CNNES ---
History of Present Illness Consult date: 12/17/23 Requesting physician: Giles Llanes Reason for Consult: New seizure History of Present Illness: Patient is a 63-year-old male with history of idiopathic pulmonary fibrosis, was brought to the hospital by family members last night at 11:36 PM for altered mental status, tremors. Patient's family were present, who provided with a history. Patient was diagnosed with pneumonia in September and he was hospitalized for a week. He was then sent to [facility] where he stayed almost for a month. Then he was discharged home and has been at home for last 1 month. For the last 2 days patient has been having hallucinations. His restless legs have been getting worse. He has been very confused, tremulous, having inter mittent tremors of the right hand, or right leg. Patient's family showed me some videos of his tremulousness, in which he was noted to be somewhat fidgety, restless, and having some tremors of the right hand, or right foot or sometimes the left. Does not appear classic for seizures, appears more like delirious tremors. Vital signs on arrival blood pressure 85/57, which improved to 112/83, pulse rate is 122, temperature maximum 100.3 rectally. Blood test shows WBC 13.1 hemoglobin 13.9, platelets are normal. PT PTT normal, sodium 133 potassium 4.2, BUN and creatinine are normal. Hepatic panel is normal, ammonia was 32, troponin negative. TSH is normal. UA negative. Blood alcohol level negative. Influenza, RSV and coronavirus PCR negative. EKG shows sinus tachycardia. Chest x-ray revealed low lung volumes with scattered parenchymal opacities favoring scarring redemonstrated. Areas of acute infiltrates less likely but not excluded. CT head revealed no acute hemorrhage, hydrocephalus or mass effect. I personally reviewed CT head, agree with the findings. Patient was diagnosed with interstitial pulmonary fibrosis in 2020. It was diagnosed at the time he had shoulder surgery and then he had a cardiac arrest. Patient has never smoked, does have history of heavy alcoholism, since he was a teenager. He would drink up to 1/5 of vodka per day. He gets into the habit of alcoholism, then become sober for a year and then [id number]. Most recently he relapsed in September 2023 after he weaned him self off morphine in end of August 2023, but since he was discharged from hospital on 10/21/2023, he has not drank alcohol. Patient in the last 2 months has been taking CBD Gummies 4 times per day. It is about 200 mg of THC in total 10 Gummies (20 mg per gummy). He finishes the packet in 2-1/2 days, as he takes about 4 day. Patient currently takes Celexa 40 mg, BuSpar 7.5 mg twice daily, Flexeril 5 mg every 8 hours as needed that he took for a month and increase to Flexeril 10 mg every 8 hours as needed on 12/07/2023. He takes it only once a day. Patient also takes Seroquel 50 mg twice daily and 100 mg at bedtime. Review of Systems As per report from patient's family. Constitutional: Reports chills, Reports sweats, Reports weight loss, Denies fever Eyes: denies blurred vision, denies diplopia, denies pain, denies loss of vision Ears: deny: decreased hearing, ear discharge Ears, nose, mouth and throat: Denies headache, Denies sore throat, Denies vertigo Cardiovascular: Reports shortness of breath, Denies chest pain Respiratory: Reports cough, Reports excessive sputum Gastrointestinal: Reports nausea, Reports vomiting, Denies abdominal pain, Mitch es diarrhea Genitourinary: Reports urinary hesitancy, Denies dysuria, Denies incontinence Musculoskeletal: Reports low back pain, Denies neck pain Integumentary: Denies pruritus, Denies rash Neurological: Reports as per HPI Psychiatric: Reports anxiety, Reports depression Endocrine: Reports fatigue, Reports weight change Past Medical History Past Medical History: Musculoskeletal Disorder Additional Past Medical History / Comment(s): ETOH abuse, DTs, chronic low back pain/herniated discs/scoliosis/spinal stenosis, right shoulder, pulmonary fibrosis, Home O2 3L History of Any Multi-Drug Resistant Organisms: None Reported Past Surgical History: Orthopedic Surgery Additional Past Surgical History / Comment(s): R ankle fx with surgical repair- pin in and out, back injections at [facility]. Left knee Past Anesthesia/Blood Transfusion Reactions: No Reported Reaction Additional Past Anesthesia/Blood Transfusion Reaction / Comment(s): Pt has never received blood. Past Psychological History: Anxiety, Depression Smoking Status: Never smoker Past Alcohol Use History: Abuse, Daily, Heavy Past Drug Use History: None Reported - Past Family History Father Family Medical History: Dementia Additional Family Medical History / Comment(s): Father is . Mother Family Medical History: Cancer Additional Family Medical History / Comment(s): Mother at age 64yrs of pancreatic cancer. Medications and Allergies Home Medications Medication Instructions Recorded Confirmed Type Citalopram Hydrobromide [CeleXA] 40 mg PO DAILY 03/25/21 12/17/23 History QUEtiapine [SEROquel] 50 mg PO TID@0800,1400,2000 03/25/21 12/17/23 History Folic Acid 1 mg PO DAILY #30 tab 03/30/21 12/17/23 Rx busPIRone HCL [Buspar] 7.5 mg PO BID 10/14/23 12/17/23 History Cbd Gummies 20mg 10 - 20 mg PO QID PRN 12/17/23 12/17/23 History Cyclobenzaprine [Flexeril] 5 - 10 mg PO Q8H PRN 12/17/23 12/17/23 History Medihoney 80% Gel 1 applic TOPICAL DAILY 12/17/23 12/17/23 History Megestrol Acetate 400 mg PO BID 12/17/23 12/17/23 History Melatonin 2 mg PO HS 12/17/23 12/17/23 History Melatonin 2 mg PO HS PRN 12/17/23 12/17/23 History Allergies Allergy/AdvReac Type Severity Reaction Status Date / Time No Known Allergies Allergy Verified 12/17/23 12:40 Physical Examination - Vital Signs Vital Signs: Vital Signs Temp Pulse Resp BP Pulse Ox 12/17/23 13:06 107 H 32 H 100/76 100 12/17/23 12:12 99.7 F H 99 25 H 109/69 100 12/17/23 11:29 101 H 19 100/64 100 12/17/23 10:08 105 H 29 H 119/73 97 12/17/23 09:19 120 H 32 H 167/65 97 12/17/23 08:35 98.1 F 117 H 32 H 140/112 82 L 12/17/23 08:20 29 H 12/17/23 07:36 96 22 106/78 98 12/17/23 06:26 101 H 27 H 103/78 96 12/17/23 06:00 105 H 26 H 106/77 99 12/17/23 05:30 105 H 28 H 139/94 99 12/17/23 05:00 124 H 34 H 114/83 100 12/17/23 04:59 98.4 F 12/17/23 04:00 95 26 H 111/73 96 12/17/23 03:30 101 H 30 H 115/69 96 12/17/23 03:00 98 22 113/86 95 12/17/23 02:00 102 H 20 109/92 94 L 12/17/23 01:57 118 H 25 H 109/92 94 L 12/17/23 01:19 100.3 F H 12/17/23 01:00 121 H 22 112/83 94 L 12/17/23 00:53 120 H 12/17/23 00:46 115 H 20 12/16/23 23:37 97.1 F L 122 H 28 H 85/57 87 L Intake and Output 12/16/23 12/17/23 12/17/23 22:59 06:59 14:59 Intake Total 490 Output Total 300 Balance 190 Intake: IV 490 Piperacillin-Tazobactam 3 100 .375 gm In Sodium Chloride 0.9% 100 ml @ 25 mls/hr IVPB Q8HR [facility] Rx# :[id number] Sodium Chloride 0.9% 1, 390 000 ml @ 130 mls/hr IV . Q7H42M [facility] Rx#:[id number] Output: Urine 300 Other: Voiding Method Indwelling Catheter Weight 52.163 kg Patient is is an elderly male, appears somewhat cachectic, sleeping, with head deviated to the right. He is somewhat extended his head backwards. Patient is sleeping. Patient slightly opens his eyes with some painful stimulus, but then closes his eyes again. Speech and language functions cannot be assessed. Attention, concentration and fund of knowledge is very limited. He did cooperate somewhat with examination as below. On cranial nerve examination, pupils are equal, round and reacting to light, visual urbano could not be tested as patient would not cooperate. Gaze is in the midline. Oculocephalics are slightly present. Corneals present. Face is symmetric, did not protrude his tongue. Lower cranial nerves could not be tested because patient would not cooperate. On muscle strength testing, patient's wholesaler, biceps, triceps are normal. Deltoids are weak because he has history of previous surgery. Patient moves his legs equally to noxious stimuli. No seizure-like activity noticed at this time. He has received Ativan therefore asleep. Deep tendon reflexes are symmetric 1+ and plantars are flat. Sensory to touch cannot be assessed. Patient does withdraw to painful stimuli bilaterally. Cerebellar function cannot be assessed. Tone and bulk of muscles normal. Gait deferred.. On general examination, there is no carotid bruit or murmur, S1-S2 audible. Chest is clear on consultation. Abdomen is soft nontender. No organomegaly, bowel sounds present. Peripheral pulses are present. No peripheral edema. Results - Laboratory Findings CBC and BMP: 12/17/23 04:50 12/17/23 04:50 Abnormal Lab Findings: Abnormal Labs 12/17/23 12/17/23 12/17/23 00:15 00:15 00:15 WBC 13.1 H RBC 4.19 L Hgb Hct MCV Neutrophils # 9.9 H ABG pO2 ABG Total CO2 ABG O2 Saturation VBG pH VBG HCO3 Sodium 133 L Chloride 94 L Carbon Dioxide 21 L Creatinine 0.52 L Glucose 159 H POC Glucose (mg/dL) Plasma Lactic Acid Cooper Calcium Ammonia 32 H Total Protein 8.3 H Urine Protein Urine Ketones Amorphous Sediment Urine Mucus 12/17/23 12/17/23 12/17/23 01:30 04:43 04:50 WBC 13.3 H RBC 3.81 L Hgb 12.8 L Hct 38.5 L MCV 101.0 H Neutrophils # 9.8 H ABG pO2 ABG Total CO2 ABG O2 Saturation VBG pH VBG HCO3 Sodium Chloride Carbon Dioxide Creatinine Glucose POC Glucose (mg/dL) 117 H Plasma Lactic Acid Cooper Calcium Ammonia Total Protein Urine Protein 1+ H Urine Ketones 1+ H Amorphous Sediment Rare H Urine Mucus Moderate H 12/17/23 12/17/23 12/17/23 04:50 04:50 04:50 WBC RBC Hgb Hct MCV Neutrophils # ABG pO2 ABG Total CO2 ABG O2 Saturation VBG pH 7.28 L VBG HCO3 22 L Sodium 134 L Chloride Carbon Dioxide 21 L Creatinine 0.51 L Glucose 100 H POC Glucose (mg/dL) Plasma Lactic Acid Cooper 5.3 H* Calcium 8.1 L Ammonia Total Protein Urine Protein Urine Ketones Amorphous Sediment Urine Mucus 12/17/23 12/17/23 08:18 08:44 WBC RBC Hgb Hct MCV Neutrophils # ABG pO2 61 L ABG Total CO2 26 H ABG O2 Saturation 91.0 L VBG pH VBG HCO3 Sodium Chloride Carbon Dioxide Creatinine Glucose POC Glucose (mg/dL) Plasma Lactic Acid Cooper 2.9 H* Calcium Ammonia Total Protein Urine Protein Urine Ketones Amorphous Sediment Urine Mucus Assessment and Plan Assessment: * Altered mental status, likely due to toxic metabolic encephalopathy. Probable acute delirium. Exact cause is uncertain. Possible related to pneumonia. Patient's ammonia was slightly elevated, therefore some component of hepatic encephalopathy is also on the differential. Alcohol withdrawal less likely, as patient has been sober since end of September 2023. * Seizure-like activity. Suspect related to acute delirium versus withdrawal. Seizure disorder appears less likely. * Pulmonary fibrosis * Acute and chronic respiratory failure with hypoxia * Pulmonary hypertension * Alcohol dependence with withdrawal, sober since end of September 2023. * Elevated LFTs * Mildly elevated ammonia 32 on arrival, now normal. * Thrombocytopenia * Generalized anxiety disorder * Depression * Generalized muscle weakness * Marijuana use Plan: * Patient was started on Keppra 1500 mg loading dose followed by 1000 mg twice daily. This will be continued. * Stat EEG rule out any epileptiform activity. * Patient has developed acute mental status change. We will check lumbar puncture to rule out meningitis encephalitis. Index of suspicion is somewhat low. I could not perform lumbar puncture today, as patient has received heparin 5000 unit subcu at 9 in the morning. Therefore lumbar puncture will be done in the morning. * Infectious disease also on board. Patient currently on Zosyn 3.375 g every 8 hours, and vancomycin 1 g every 12 hours. * Patient also has history of alcoholism, currently on CIVA protocol. Continue thiamine, folate. Patient's B12 399 on 12/17/2023. Patient will be started on B12 and folate. * Other medical management as per IM and pulmonary medicine. * Discussed with patient's family and nursing staff in detail. * Neurology will follow. Thank you for the consult. Time with Patient: Greater than 30
[2023-12-18 09:40] LABS: Glucose,Whole Blood 91 mg/dL (70-110)
[2023-12-18 09:51] LABS: Basophils # (A) 0.1 k/uL (0-0.2); Basophils % (A) 0 %; Eosinophils # (A) 0.3 k/uL (0-0.7); Eosinophils % (A) 2 %; HCT 35.3 % (39.0-53.0); HGB 11.7 gm/dL (13.0-17.5); Lymphocytes # (A) 1.9 k/uL (1.0-4.8); Lymphocytes % (A) 14 %; MCH 33.4 pg (25.0-35.0); MCHC 33.2 g/dL (31.0-37.0); MCV 100.6 fL (80.0-100.0); Mean Platelet Volume 8.9; Monocytes # (A) 1.2 k/uL (0-1.0); Monocytes % (A) 8 %; Neutrophils # (A) 10.4 k/uL (1.3-7.7); Neutrophils % (A) 74 %; Platelet Count 254 k/uL (150-450); RBC 3.51 m/uL (4.30-5.90); RDW 13.6 % (11.5-15.5); WBC 14.1 k/uL (3.8-10.6)
[2023-12-18 10:04] LABS: ALT 31 U/L (4-49); AST 29 U/L (17-59); African American GFR (CKD) >90 (>60 ml/min/1.73 sqM); Albumin 3.4 g/dL (3.5-5.0); Alkaline Phosphatase 86 U/L (38-126); Anion Gap 7 mmol/L; Bilirubin, Delta 0.3 mg/dL (0.0-0.2); Bilirubin,Unconjugated 0.7 mg/dL (0.0-1.1); Blood Urea Nitrogen 2 mg/dL (9-20); Calcium 7.6 mg/dL (8.4-10.2); Carbon Dioxide 27 mmol/L (22-30); Chloride 97 mmol/L (98-107); Glucose 88 mg/dL (74-99); Magnesium 1.5 mg/dL (1.6-2.3); Non-African American GFR(CKD) >90 (>60 ml/min/1.73 sqM); Phosphorus 2.1 mg/dL (2.5-4.5); Potassium 3.1 mmol/L (3.5-5.1); Sodium 131 mmol/L (137-145); Total Protein 6.2 g/dL (6.3-8.2)
[2023-12-18] MEDS: IPRATROPIUM-ALBUTEROL 3 ML NEB INHALATION PRN (11:03)
[2023-12-18] MEDS ORDERED: Magnesium Replacement Protocol 1 EACH MISC MISCELLANE PRN (11:09)
[2023-12-18] MEDS: MAGNESIUM SULFATE-D5W PMX 1 GM in DEXTROSE/WATER 1 100ML.BAG IVPB SCH (11:18)
[2023-12-18] MEDS: POTASSIUM CHLORIDE 20 MEQ in WATER FOR INJECTION 1 100ML.BAG IVPB SCH (11:18)
[2023-12-18 11:43] LABS: Glucose,Whole Blood 86 mg/dL (70-110)
--- NOTE | 2023-12-18 11:45 | P.PN ---
Subjective Progress Note Date: 12/18/23 This is a 63-year-old male patient was brought into the ICU because of altered mentation. The patient has history of advanced pulmonary fibrosis. The patient has been diagnosed having IPF few years back and the patient has been treated with Ofev and he has severe restrictive lung disease with an FVC of 45% predicted and is also oxygen dependent at 3 L/min nasal cannula. He has history of alcoholism and the patient is chronically debilitated. He drinks alcohol excessively approximately 7 beers a day and he also drinks 1/5 of peppermint schnapps every day. The patient was in the hospital back in October 2023 and at that time the patient sustained acute hypoxic respiratory failure and require d intubation mechanical ventilation. Note that during his hospital stay, the patient also sustained some alcohol withdrawal symptoms. He was ultimately stabilized and he was discharged to be readmitted yesterday due to diminished level of consciousness, increased shakiness, confusion, unable to communicate and unable to provide appropriate history. On examination, the patient r shows signs of significant debility, muscle wasting and significant loss of total body muscle mass and malnutrition and deconditioning. The patient was moved to the intensive care unit. Earlier this morning, I had a sitter at the bedside and I was able to briefly communicate with the patient. Nevertheless, he was obviously encephalopathic. He was able to maintain eye contact. He was saying few words and following simple commands and following that and the patient became more agitated he was given Ativan and he became more rested. Obviously, the shakiness is not a sign of seizure at this point in time. He was given Keppra overnight. At time of my evaluation the patient was able to communicate even while he was having those shakes. It is possible that this may be some signs of tremors, delirium tremens this been going on. The viral screen has been negative. Likely his level was at 2.9. The blood gas was done overnight showed a pH of 7.36 with a pCO2 of 44 and pO2 of 61 and this was an FiO2 of 44%. The patient's WBC count at 15.3, it was 4.8 and platelet count of 270. Normal coagulation profile. BUN is at 40 with a creatinine of 0.5 and sodium levels at 134 with a potassium level of 4.8. LFTs are normal. UA is showing possible blood and +1 glucose. No signs of any infection. Alcohol level less than 10. The chest x-ray is consistent with pulmonary fibrosis and the patient has small lung volumes bilaterally and scattered pulmonary opacities favor scarring. An acute superimposed process cannot be completely ruled out. CAT scan of the brain that was done in the emergency showed no acute hemorrhage hydrocephalus or mass effects. At this point in time, the patient is on 5 L of oxygen by nasal cannula with a pulse ox of 100%. Hemodynamically stable. No reported fever. T here was a temperature max of 100.2 during this current admission. Currently afebrile. Cardiac rhythm is sinus. On today's evaluation of 12/18/2023, the patient is arousable and awake and he is following some simple commands and answering questions. Overnight, the patient received a total of 4 mg of Ativan and the last dose was given to him at 9:21 PM. He is awake and alert and communicating. Extremely debilitated. Extremely weak. Has a weak cough. Oral mucosa remains dry. He was on oxygen and he was brought up to 13 L and he was weaned down to 10 L and I further cut down the oxygen flow to 5 L this morning. He is on normal saline at rate of 130 cc an hour. A repeat chest x-ray was done today and shows consolidation and chronic fibrotic changes. There is worsening of the consolidation airspace disease on the right compared to yesterday's chest x-ray. Suspected aspiration pneumonia. Based on that, the patient was covered with IV Zosyn and vancomycin. The white cell count today is at 14.1 with a hemoglobin 11.7 and a platelet count of 254. BUN is at 2 with a creatinine of 0.4 and sodium levels at 131 with a potassium level of 3.1. LFTs are within normal limits. The patient is extremely debilitated and weak. May benefit from a Dobbhoff catheter insertion. This may be needed at a later stage IV medication enteral feeding. Hemodynamically stable. Neurology on the case. No evidence of any seizures. He is maintained on Keppra. EEG is to follow. No neck stiffness. No fever at this point in time. Objective - Vital Signs Vital signs: Vital Signs Temp 99.7 F H 12/18/23 04:00 Pulse 101 H 12/18/23 08:00 Resp 26 H 12/18/23 08:00 BP 121/72 12/18/23 08:00 Pulse Ox 100 12/18/23 08:00 FiO2 Intake & Output 12/17/23 12/18/23 12/18/23 18:59 06:59 18:59 Intake Total 1750 2440 130 Output Total 1075 2680 0 Balance 675 -240 130 Weight 52.163 kg 52.481 kg Intake: IV 1750 2440 130 ACETAMINOPHEN IV (For NPO 400 ) 1,000 mg In Empty Bag 1 bag @ 400 mls/hr IVPB ONCE ONE Rx#:[id number] Piperacillin-Tazobactam 3 200 100 .375 gm In Sodium Chloride 0.9% 100 ml @ 25 mls/hr IVPB Q8HR [facility] Rx# :[id number] Sodium Chloride 0.9% 1, 1300 1690 130 000 ml @ 130 mls/hr IV . Q7H42M [facility] Rx#:[id number] Vancomycin 1,000 mg In 250 250 Sodium Chloride 0.9% 250 ml @ 125 mls/hr IVPB ONCE [facility] Rx#:[id number] Output: Urine 1075 2680 0 Other: Voiding Method Indwelling Catheter Indwelling Catheter - Exam General appearance the patient is calm and comfortable, communicating, extremely debilitated and weak. The patient is poorly maintained, malnourished, has significant loss of total body muscle mass. Head exam was generally normal. There was no scleral icterus or corneal arcus. Mucous membranes were moist.. Neck was supple and without jugular venous distension, thyromegaly, or carotid bruits. Carotids were easily palpable bilaterally. There was no adenopathy. No evidence of any neck stiffness. Lung sounds are diminished bilaterally and the patient has coarse clearance in the mid and lower lung urbano bilaterally. Cardiac exam revealed the PMI to be normally situated and sized. The rhythm was regular and no extrasystoles were noted during several minutes of auscultation. The first and second heart sounds were normal and physiologic splitting of the second heart sound was noted. There were no murmurs, rubs, clicks, or gallops. Abdominal exam revealed normal bowel sounds. The abdomen was soft, non-tender, and without masses, organomegaly, or appreciable enlargement of the abdominal aorta. Examination of the extremities revealed easily palpable radial, femoral and pedal pulses. There was no cyanosis, clubbing or edema. Significant muscle atrophy in all 4 extremities along with temporal wasting. Neurologically, the patient's mentation is appropriate that the patient was able to tell me his name and he was able to tell me that he was in the hospital. And the patient is able to follow some simple commands. He is able to maintain a simple conversation.. . He is showing signs of weakness in all 4 extremities. He has tremors. These are not automatic movements. No motor or focal motor neurologic deficits. Pupils are equal reactive to light. No facial asymmetry. Positive cough and gag. Examination of the skin revealed no evidence of significant rashes, suspicious appearing nevi or other concerning lesions. - Labs CBC & Chem 7: 12/18/23 09:35 12/18/23 09:35 Labs: Abnormal Lab Results - Last 24 Hours (Table) 12/17/23 12/17/23 12/17/23 Range/Units 08:18 08:44 17:45 ABG pO2 61 L (83-108) mmHg ABG Total CO2 26 H (19-24) mmol/L ABG O2 Saturation 91.0 L (94-97) % Plasma Lactic Acid Cooper 2.9 H* (0.7-2.0) mmol/L Urine Opiates Screen Detected H (NotDetected) U Benzodiazepines Scrn Detected H (NotDetected) U Marijuana (THC) Screen Detected H (NotDetected) Assessment and Plan Plan: Altered mental status, history of drug withdrawal effect including possibility of withdrawal from alcohol as the patient is a history of alcoholism and has had previous history of delirium tremors. Other drug-related encephalopathy cannot be completely ruled out. Metabolic encephalopathy and infection encephalopathy cannot be completely ruled out. CAT scan of the brain is negative. No neck st iffness. No signs of meningitis. No signs of any seizure activity. Patient has been maintained on Keppra. EEG is to follow. Acute hypoxic respiratory failure and the patient has been on O2 at 5 L/min nasal cannula. The patient obviously is more hypoxic compared to his baseline. Consider superinfection/aspiration. There is worsening of the consolidation of the right lung. Consider aspiration pneumonia. Currently on a combination of Zosyn and vancomycin. IPF with chronic hypoxic respiratory failure typically maintained on oxygen 3 L/min nasal cannula maintained on outpatient basis Scoliosis of the spine along with spinal stenosis Osteoarthritis Chronic back pain Extreme medical debility, significant loss of total body muscle mass and signs of hyponutrition assessment nutrition Plan Keep the patient on oxygen at 5 L/min nasal cannula, titrate oxygen flow to maintain saturation above 90% Ativan for signs of any delirium tremors and shaking Zosyn and vancomycin as an empiric antibiotic coverage pending further cultures Check procalcitonin level, results are still pending for now Continue hydration and the patient with normal saline at rate of 130 cc an hour Management of Keppra per neurology. No indication for any seizure activity at this point in time. EEG is in progress Heparin subcu for DVT prophylaxis Aspiration precautions Would benefit from a Dobbhoff catheter Check ammonia level is not elevated at 22 Hold the rest of the home medication including Seroquel and BuSpar at this point in time. Will continue to follow make further recommendations based on the progress.
--- NOTE | 2023-12-18 12:18 | P.PCN ---
Date of Procedure: 12/18/23 Operative Findings: Preoperative Diagnosis: Peripheral IV access failure Postoperative Diagnosis: Peripheral IV access failure Procedure(s) Performed: central line Anesthesia: local Operative Findings: Central Line Procedure Note Indication: [x_] Hypotension/Sepsis/Need for Pressors [_] Vascular Access [_] Dialysis Access [_] Suspected Central Line Infection [_] Line Malfunction [_] Other: _ Central Line Location: [_x]x Right or [_] Left [_] Internal Jugular Vein or [ ] Subclavian Vein or [_x ] Femoral Vein Consent: [_] Consent was obtained from prior to the procedure. Indications, risks and benefits were discussed prior to the procedure. [x_] The procedure was performed emergently and the permission was implied because of the emergent nature. PROCEDURE SUMMARY: The [facility] Central Line Insertion Practices form was completed during and immediately following the procedure. A time out was performed. My hands were wa shed immediately prior to the procedure. I wore a surgical cap, mask with protective eyewear, full gown and sterile gloves throughout the procedure. The patient was placed in Trendelenburg position. The Left chest was prepped using chlorhexidine scrub and draped in sterile fashion using a three quarter sheet drape and sterile towels. Skin preparation was allowed to dry prior to skin puncture. Anatomic landmarks were identified. Anesthesia was achieved over the vein using 1% lidocaine. The introducer needle was inserted into the vein under direct ultrasound visualization. Venous blood was withdrawn. The syringe was removed and a guidewire was advanced into the introducer needle. A small incision was made at the skin surface with a scalpel and the introducer needle was exchanged for a dilator over the guidewire. After appropriate dilation was obtained, the dilator was exchanged over the wire for an antimicrobial coated central venous catheter. The wire was removed and the catheter was sutured in place . A biopatch was placed at the insertion site. A sterile op-site was placed over the catheter and biopatch. The patient tolerated the procedure without any hemodynamic compromise. At time of procedure completion, all ports aspirated and flushed properly. Post-procedure chest x-ray : [_] Is pending at this time. [ ] Shows adequate positioning of the catheter for use. Not needed as the patient underwent a femoral line insertion
[2023-12-18] MEDS: THIAMINE 100 MG TAB PO SCH (12:54)
--- NOTE | 2023-12-18 14:43 | P.PN ---
Subjective Progress Note Date: 12/18/23 No new complaints. Plan is for LP tomorrow. Remains on vanco/zosyn. O2 requirement of 5L. Gen: In NAD, non-toxic, cachectic elderly man HEENT: normocephalic, atraumatic, hearing acuity is intant, mucous membranes moist CVS: perfusing all extremities well, no pitting edema, Respiratory: symmetric chest expansion, no accessory muscle use, GI: soft, NTTP, ND, : no suprapubic tenderness, no CVA tenderness MSK/Derm: no rashes, cyanosis, tenderness in the back of the neck Neuro: CN II-XII intact, no motor weakness, Hospital course: 63-year-old male with pulmonary fibrosis oxygen dependent 3.5 L at home presented for evaluation of altered mental status family described shaking all day. In the ED patient is tachycardic and febrile. Chest x-ray showed diffuse opacities which reflect his history of interstitial pulmonary fibrosis however infectious process could not be ruled out CT of the brain no acute intracranial pathology Blood work showed white count of 13.1, patient febrile and tachycardic Renal function unremarkable sodium 133 potassium 4.2 BUN 17 creatinine 0.5 Alcohol level negative Ammonia 32 Assessment/plan: Acute metabolic encephalopathy Chronic hypoxic respiratory failure secondary to pulmonary fibrosis Sepsis possible underlying pneumonia versus meningitis among others unknown source of infection at this time Follow-up blood cultures Check urine analysis Consider lumbar tap ID consult, vancomycin/Zosyn Seizure precautions Patient loaded with Keppra Ativan 2 mg IV push as needed for seizures EEG, neurology consult ICU consultation IV fluid hydration resuscitation status post 2 L septic bolus follow-up with normal saline at 100 cc/h Check acute respiratory viral panel Alcohol abuse not clear when was his last alcoholic drink His symptoms could possibly be explained by alcohol withdrawal if infectious process was ruled out Monitor for alcohol withdrawal Ativan per CIWA scale Thiamine daily Full code DVT prophylaxis heparin subcu 3 times daily GI prophylaxis Protonix 40 mg IV push daily Disposition to the ICU Guarded prognosis Objective - Vital Signs Vital signs: Vital Signs Temp 98.6 F 12/18/23 09:00 Pulse 112 H 12/18/23 14:00 Resp 39 H 12/18/23 14:00 BP 117/102 12/18/23 14:00 Pulse Ox 99 12/18/23 14:00 FiO2 Intake & Output 03/12/18/23 12/18/23 18:59 06:59 18:59 Intake Total 1750 2440 1075 Output Total 1075 2680 970 Balance 675 -240 105 Weight 52.163 kg 52.481 kg Intake: IV 1750 2440 725 ACETAMINOPHEN IV (For NPO 400 ) 1,000 mg In Empty Bag 1 bag @ 400 mls/hr IVPB ONCE ONE Rx#:[id number] Piperacillin-Tazobactam 3 200 100 75 .375 gm In Sodium Chloride 0.9% 100 ml @ 25 mls/hr IVPB Q8HR [facility] Rx# :[id number] Sodium Chloride 0.9% 1, 1300 1690 650 000 ml @ 130 mls/hr IV . Q7H42M [facility] Rx#:[id number] Vancomycin 1,000 mg In 250 250 Sodium Chloride 0.9% 250 ml @ 125 mls/hr IVPB ONCE [facility] Rx#:[id number] Intake, IV Titration 350 Amount Magnesium Sulfate-D5w Pmx 200 1 gm In Dextrose/Water 1 100ml.bag @ 100 mls/hr IVPB Q1H [facility] Rx#: [id number] Potassium Chloride 20 meq 150 In Water For Injection 1 100ml.bag @ 50 mls/hr IVPB Q2H [facility] Rx#: [id number] Output: Urine 1075 2680 970 Other: Voiding Method Indwelling Catheter Indwelling Catheter Indwelling Catheter - Labs CBC & Chem 7: 12/18/23 09:35 12/18/23 09:35 Labs: Abnormal Lab Results - Last 24 Hours (Table) 12/17/23 12/18/23 12/18/23 Range/Units 17:45 09:35 09:35 WBC 14.1 H (3.8-10.6) k/uL RBC 3.51 L (4.30-5.90) m/uL Hgb 11.7 L (13.0-17.5) gm/dL Hct 35.3 L (39.0-53.0) % MCV 100.6 H (80.0-100.0) fL Neutrophils # 10.4 H (1.3-7.7) k/uL Monocytes # 1.2 H (0-1.0) k/uL Sodium 131 L (137-145) mmol/L Potassium 3.1 L (3.5-5.1) mmol/L Chloride 97 L (98-107) mmol/L BUN 2 L (9-20) mg/dL Creatinine 0.43 L (0.66-1.25) mg/dL Calcium 7.6 L (8.4-10.2) mg/dL Phosphorus 2.1 L (2.5-4.5) mg/dL Magnesium 1.5 L (1.6-2.3) mg/dL Delta Bilirubin 0.3 H (0.0-0.2) mg/dL C-Reactive Protein 15.0 H (<1.0) mg/dL Total Protein 6.2 L (6.3-8.2) g/dL Albumin 3.4 L (3.5-5.0) g/dL Urine Opiates Screen Detected H (NotDetected) U Benzodiazepines Scrn Detected H (NotDetected) U Marijuana (THC) Screen Detected H (NotDetected) Microbiology - Last 24 Hours (Table) 12/17/23 05:10 Blood Culture - Preliminary Blood 12/17/23 04:50 Blood Culture - Preliminary Blood
[2023-12-18] MEDS ORDERED: ZINC OXIDE PASTE (Z-GUARD) 1 APPLIC TOPICAL PRN (15:16)
--- NOTE | 2023-12-18 16:16 | P.PN ---
Subjective Progress Note Date: 12/18/23 Principal diagnosis: Reason for follow-up is likely aspiration pneumonia Patient is a 63-year-old male with a past medical history significant for EtOH abuse DTs pulmonary fibrosis on home O2 recent admission to the hospital treated for DTs patient has been brought back to the hospital for evaluation of altered mental status and there was concern for possible aspirat ion pneumonia in this patient who did have a fever on presentation to the hospital. On today's visit that is 12/18/2023, patient did spike a fever at midnight of 101.5 F patient is afebrile since then patient is more awake and alert and is currently on a liters nasal cannula oxygen patient denies having any chest pain no worsening cough or sputum production no vomiting or diarrhea has been report ed by the nursing staff. Patient white count of 14.1, creatinine 0.43 blood cultures currently pending chest x-ray diffuse airspace consolidative opacity involving the majority of the right lung Objective - Vital Signs Vital signs: Vital Signs Temp 98.6 F 12/18/23 09:00 Pulse 112 H 12/18/23 15:00 Resp 33 H 12/18/23 15:00 BP 133/93 12/18/23 15:00 Pulse Ox 100 12/18/23 15:00 FiO2 Intake & Output 12/17/23 12/18/23 12/18/23 18:59 06:59 18:59 Intake Total 1750 2440 1205 Output Total 1075 2680 1045 Balance 675 -240 160 Weight 52.163 kg 52.481 kg Intake: IV 1750 2440 855 ACETAMINOPHEN IV (For NPO 400 ) 1,000 mg In Empty Bag 1 bag @ 400 mls/hr IVPB ONCE ONE Rx#:[id number] Piperacillin-Tazobactam 3 200 100 75 .375 gm In Sodium Chloride 0.9% 100 ml @ 25 mls/hr IVPB Q8HR [facility] Rx# :[id number] Sodium Chloride 0.9% 1, 1300 1690 780 000 ml @ 130 mls/hr IV . Q7H42M [facility] Rx#:[id number] Vancomycin 1,000 mg In 250 250 Sodium Chloride 0.9% 250 ml @ 125 mls/hr IVPB ONCE [facility] Rx#:[id number] Intake, IV Titration 350 Amount Magnesium Sulfate-D5w Pmx 200 1 gm In Dextrose/Water 1 100ml.bag @ 100 mls/hr IVPB Q1H [facility] Rx#: [id number] Potassium Chloride 20 meq 150 In Water For Injection 1 100ml.bag @ 50 mls/hr IVPB Q2H [facility] Rx#: [id number] Output: Urine 1075 2680 1045 Other: Voiding Method Indwelling Catheter Indwelling Catheter Indwelling Catheter - Exam GENERAL DESCRIPTION: Middle-age male lying in bed in no distress RESPIRATORY SYSTEM: Unlabored breathing , decreased breath sounds at bases HEART: S1 S2 regular rate and rhythm , ABDOMEN: Soft , no tenderness EXTREMITIES: No edema feet - Labs CBC & Chem 7: 12/18/23 09:35 12/18/23 09:35 Labs: Abnormal Lab Results - Last 24 Hours (Table) 12/17/23 12/18/23 12/18/23 Range/Units 17:45 09:35 09:35 WBC 14.1 H (3.8-10.6) k/uL RBC 3.51 L (4.30-5.90) m/uL Hgb 11.7 L (13.0-17.5) gm/dL Hct 35.3 L (39.0-53.0) % MCV 100.6 H (80.0-100.0) fL Neutrophils # 10.4 H (1.3-7.7) k/uL Monocytes # 1.2 H (0-1.0) k/uL Sodium 131 L (137-145) mmol/L Potassium 3.1 L (3.5-5.1) mmol/L Chloride 97 L (98-107) mmol/L BUN 2 L (9-20) mg/dL Creatinine 0.43 L (0.66-1.25) mg/dL Calcium 7.6 L (8.4-10.2) mg/dL Phosphorus 2.1 L (2.5-4.5) mg/dL Magnesium 1.5 L (1.6-2.3) mg/dL Delta Bilirubin 0.3 H (0.0-0.2) mg/dL C-Reactive Protein 15.0 H (<1.0) mg/dL Total Protein 6.2 L (6.3-8.2) g/dL Albumin 3.4 L (3.5-5.0) g/dL Urine Opiates Screen Detected H (NotDetected) U Benzodiazepines Scrn Detected H (NotDetected) U Marijuana (THC) Screen Detected H (NotDetected) Microbiology - Last 24 Hours (Table) 12/17/23 05:10 Blood Culture - Preliminary Blood 12/17/23 04:50 Blood Culture - Preliminary Blood Assessment and Plan (1) Aspiration pneumonia Current Visit: Yes Status: Acute Code(s): J69.0 - PNEUMONITIS DUE TO IN HALATION OF FOOD AND VOMIT SNOMED Code(s): 290151085 Plan: 1patient presented to hospital with sepsis in this patient who did have fever tachycardia elevated white count concerning for possible aspiration pneumonitis underlying [employer] infection less likely cannot entirely excluded abdomen was soft on clinical examination and no evidence of any cellulitis urine has been negative 2-we will try to obtain a sputum for Gram stain culture, we will check MRSA nasal swab for colonization 3- repeat chest x-ray showing significant worsening on the right side concerning for aspiration pneumonia continue with the Zosyn and vancomycin watching his [employer] function closely Dictation was produced using [employer] dictation software. please excuse any gra mmatical, word or spelling errors. Time with Patient: Less than 30
[2023-12-18 16:53] LABS: Glucose,Whole Blood 91 mg/dL (70-110)
[2023-12-18] MEDS: POTASSIUM CHLORIDE 10 MEQ in WATER FOR INJECTION 1 100ML.BAG IVPB SCH (18:27)
[2023-12-18] MEDS: SODIUM CHLORIDE 0.9% 1,000 ML IV SCH (18:34)
[2023-12-18] MEDS: QUEtiapine 50 MG TAB PO SCH (20:18)
[2023-12-18] MEDS: MELATONIN 1 MG TAB PO SCH (20:18)
--- NOTE | 2023-12-18 23:46 | EEG ---
ELECTROENCEPHALOGRAM REPORT PREAMBLE: This is a 63-year-old male with altered mental status, tremors. This study is performed to evaluate for any epileptiform activity, rule out any seizure disorder. EEG FINDING: This is a 21-channel digital EEG recorded with video component, utilizing 10/20 international system with referential and bipolar montages. Background consists of moderately well-developed, but not very well regulated, mixed frequency activity in some 4 to 6 hertz theta, with some delta and some fast frequency beta activity seen in bihemispheric region. Background does not seem to be reactive to eye opening or closing. Photic driving response was not seen. Hyperventilation was not performed. Different stages of sleep were not seen. No focal or generalized epileptiform activity was seen. IMPRESSION: This is an abnormal EEG due to background disorganization and some slowing, suggestive of [id number] encephalopathy. No focal, lateralized or epileptiform activity was seen. MMTULIO / IJN: [id number] /
--- NOTE | 2023-12-19 00:07 | P.PN ---
Subjective Progress Note Date: 12/18/23 Patient was seen for a follow-up. Patient has clinically much improved. He is alert and oriented. He states he cannot breathe. He denies any headache. He does have pain all over. Objective - Vital Signs Vital signs: Vital Signs Temp 98.6 F 12/18/23 09:00 Pulse 120 H 12/18/23 17:00 Resp 22 12/18/23 17:00 BP 126/93 12/18/23 17:00 Pulse Ox 96 12/18/23 17:00 FiO2 Intake & Output 12/17/23 12/18/23 12/18/23 18:59 06:59 18:59 Intake Total 1750 2440 1405 Output Total 1075 2680 1195 Balance 675 -240 210 Weight 52.163 kg 52.481 kg Intake: IV 1750 2440 955 ACETAMINOPHEN IV (For NPO 400 ) 1,000 mg In Empty Bag 1 bag @ 400 mls/hr IVPB ONCE ONE Rx#:[id number] Piperacillin-Tazobactam 3 200 100 175 .375 gm In Sodium Chloride 0.9% 100 ml @ 25 mls/hr IVPB Q8HR [facility] Rx# :[id number] Sodium Chloride 0.9% 1, 1300 1690 780 000 ml @ 130 mls/hr IV . Q7H42M [facility] Rx#:[id number] Vancomycin 1,000 mg In 250 250 Sodium Chloride 0.9% 250 ml @ 125 mls/hr IVPB ONCE [facility] Rx#:[id number] Intake, IV Titration 450 Amount Magnesium Sulfate-D5w Pmx 200 1 gm In Dextrose/Water 1 100ml.bag @ 100 mls/hr IVPB Q1H [facility] Rx#: [id number] Potassium Chloride 20 meq 150 In Water For Injection 1 100ml.bag @ 50 mls/hr IVPB Q2H [facility] Rx#: [id number] Sodium Chloride 0.9% 1, 100 000 ml @ 100 mls/hr IV . Q10H [facility] Rx#:[id number] Output: Urine 1075 2680 1195 Other: Voiding Method Indwelling Catheter Indwelling Catheter Indwelling Catheter - Exam Patient's mentation is much improved. He is alert and awake. He knows it is November and the year is 24 and he is in [facility] in [place]. Speech and language functions are normal. He appears somewhat cachectic. His pupils are equal, round and reacting, visual urbano are full, face is symmetric. His muscle strength is symmetric. Sensations equal. - Labs CBC & Chem 7: 12/18/23 09:35 12/18/23 16:48 Labs: Abnormal Lab Results - Last 24 Hours (Table) 12/17/23 12/18/23 12/18/23 Range/Units 17:45 09:35 09:35 WBC 14.1 H (3.8-10.6) k/uL RBC 3.51 L (4.30-5.90) m/uL Hgb 11.7 L (13.0-17.5) gm/dL Hct 35.3 L (39.0-53.0) % MCV 100.6 H (80.0-100.0) fL Neutrophils # 10.4 H (1.3-7.7) k/uL Monocytes # 1.2 H (0-1.0) k/uL Sodium 131 L (137-145) mmol/L Potassium 3.1 L (3.5-5.1) mmol/L Chloride 97 L (98-107) mmol/L BUN 2 L (9-20) mg/dL Creatinine 0.43 L (0.66-1.25) mg/dL Calcium 7.6 L (8.4-10.2) mg/dL Phosphorus 2.1 L (2.5-4.5) mg/dL Magnesium 1.5 L (1.6-2.3) mg/dL Delta Bilirubin 0.3 H (0.0-0.2) mg/dL C-Reactive Protein 15.0 H (<1.0) mg/dL Total Protein 6.2 L (6.3-8.2) g/dL Albumin 3.4 L (3.5-5.0) g/dL Urine Opiates Screen Detected H (NotDetected) U Benzodiazepines Scrn Detected H (NotDetected) U Marijuana (THC) Screen Detected H (NotDetected) Microbiology - Last 24 Hours (Table) 12/17/23 05:10 Blood Culture - Preliminary Blood 12/17/23 04:50 Blood Culture - Preliminary Blood Assessment and Plan Assessment: * Altered mental status, likely due to toxic metabolic encephalopathy. Probable acute delirium. Exact cause is uncertain. Possible related to pneumonia. Patient's ammonia was slightly elevated, therefore some component of hepatic encephalopathy is also on the differential. Alcohol withdrawal less likely, as patient has been sober since end of September 2023. * Seizure-like activity. Suspect related to acute delirium versus withdrawal. Seizure disorder appears less likely. * Pulmonary fibrosis * Acute and chronic respiratory failure with hypoxia * Pulmonary hypertension * Alcohol dependence with withdrawal, sober since end of September 2023. * Elevated LFTs * Mildly elevated ammonia 32 on arrival, now normal. * Thrombocytopenia * Generalized anxiety disorder * Depression * Generalized muscle weakness * Marijuana use Plan: * Patient's mentation is much improved. Patient is currently on Keppra 1000 mg twice a day, started empirically. * EEG was abnormal due to background slowing, disorganization, suggestive of mild to moderate encephalopathy. No focal, lateralized or epileptiform activity was seen. * As mentation has normalized, and EEG did not reveal any epileptiform activity, we will decrease Keppra down to 500 mg twice a day. May stop Keppra in a day or 2. * No indication for lumbar puncture, as patient has no headache, mentation normal. * Infectious disease also on board. Patient currently on Zosyn 3.375 g every 8 hours, and vancomycin 1 g every 12 hours. * Patient also has history of alcoholism, currently on CIWA protocol. Continue thiamine, folate. Patient's B12 399 on 12/17/2023. Patient will be started on B12 and folate. * Other medical management as per IM and pulmonary medicine. * Discussed with nursing staff. * Dr. Wenceslao Petit to resume neurology service in the morning.
[2023-12-19 00:09] LABS: Glucose,Whole Blood 97 mg/dL (70-110)
[2023-12-19 00:35] LABS: Glucose,Whole Blood 90 mg/dL (70-110)
[2023-12-19 04:03] LABS: Basophils % (A) 0 %; Eosinophils # (A) 0.3 k/uL (0-0.7); Eosinophils % (A) 3 %; HCT 36.8 % (39.0-53.0); HGB 12.4 gm/dL (13.0-17.5); Lymphocytes # (A) 1.8 k/uL (1.0-4.8); Lymphocytes % (A) 16 %; MCHC 33.7 g/dL (31.0-37.0); MCV 100.7 fL (80.0-100.0); Monocytes # (A) 0.7 k/uL (0-1.0); Monocytes % (A) 7 %; Neutrophils # (A) 8.1 k/uL (1.3-7.7); Neutrophils % (A) 73 %; Platelet Count 237 k/uL (150-450); RBC 3.65 m/uL (4.30-5.90); RDW 13.9 % (11.5-15.5); WBC 11.2 k/uL (3.8-10.6)
[2023-12-19 04:09] LABS: African American GFR (CKD) >90 (>60 ml/min/1.73 sqM); Anion Gap 11 mmol/L; Blood Urea Nitrogen 2 mg/dL (9-20); Calcium 8.2 mg/dL (8.4-10.2); Carbon Dioxide 22 mmol/L (22-30); Chloride 99 mmol/L (98-107); Glucose 82 mg/dL (74-99); Non-African American GFR(CKD) >90 (>60 ml/min/1.73 sqM); Potassium 3.6 mmol/L (3.5-5.1); Sodium 132 mmol/L (137-145)
[2023-12-19] MEDS: VANCOMYCIN TROUGH DUE 1 EACH MISC MISCELLANE ONE (04:19)
[2023-12-19] MEDS: POTASSIUM CHLORIDE 10 MEQ in WATER FOR INJECTION 1 100ML.BAG IVPB SCH (04:21)
[2023-12-19 06:08] LABS: Glucose,Whole Blood 78 mg/dL (70-110)
[2023-12-19] MEDS: levETIRAcetam IV 500 MG/5 ML VIAL IVP SCH (08:42)
[2023-12-19] MEDS: MORPHINE SULFATE 4 MG/ML SYRINGE IVP PRN (10:28)
--- NOTE | 2023-12-19 10:30 | P.PN ---
Subjective Progress Note Date: 12/19/23 No new complaints. Pts mentation significantly improved. Requiring 5L NC, baseline is 3.5L Gen: In NAD, non-toxic, cachectic elderly man HEENT: normocephalic, atraumatic, hearing acuity is intant, mucous membranes moist CVS: perfusing all extremities well, no pitting edema, Respiratory: symmetric chest expansion, no accessory muscle use, GI: soft, NTTP, ND, : no suprapubic tenderness, no CVA tenderness MSK/Derm: no rashes, cyanosis, tenderness in the back of the neck Neuro: CN II-XII intact, no motor weakness, Hospital course: 63-year-old male with pulmonary fibrosis oxygen dependent 3.5 L at home presented for evaluation of altered mental status family described shaking all day. In the ED patient is tachycardic and febrile. Chest x-ray showed diffuse opacities which reflect his history of interstitial pulmonary fibrosis however infectious process could not be ruled out CT of the brain no acute intracranial pathology Blood work showed white count of 13.1, patient febrile and tachycardic Renal function unremarkable sodium 133 potassium 4.2 BUN 17 creatinine 0.5 Alcohol level negative Ammonia 32 Assessment/plan: Acute metabolic encephalopathy Acute on Chronic hypoxic respiratory failure secondary to pulmonary fibrosis Sepsis possible underlying aspiration pneumonia Follow-up blood cultures = NGTD Check urine analysis = 1+ protein, 1+ ketones ID consult, vancomycin/Zosyn Seizure precautions Patient loaded with Keppra, on keppra, but weaning per Neurology Ativan 2 mg IV push as needed for seizures EEG = no epileptiform activity Neurology consult ICU consultation IV fluid hydration resuscitation status post 2 L septic bolus follow-up with normal saline at 100 cc/h Check acute respiratory viral panel Alcohol abuse not clear when was his last alcoholic drink His symptoms could possibly be explained by alcohol withdrawal if infectious process was ruled out Monitor for alcohol withdrawal Ativan per CIWA scale Thiamine daily Full code DVT prophylaxis heparin subcu 3 times daily GI prophylaxis Protonix 40 mg IV push daily Disposition to the ICU Guarded prognosis Objective - Vital Signs Vital signs: Vital Signs Temp 97.9 F 12/19/23 09:00 Pulse 112 H 12/19/23 09:00 Resp 43 H 12/19/23 09:00 BP 144/74 12/19/23 09:00 Pulse Ox 94 L 12/19/23 09:00 FiO2 Intake & Output 03/24/24 03/25/24 03/25/24 18:59 06:59 18:59 Intake Total 1855 1650 350 Output Total 1370 910 290 Balance 485 740 60 Weight 55.8 kg Intake: IV 955 1650 350 Piperacillin-Tazobactam 3 175 50 .375 gm In Sodium Chloride 0.9% 100 ml @ 25 mls/hr IVPB Q8HR [facility] Rx# :[id number] Potassium Chloride 10 meq 300 In Water For Injection 1 100ml.bag @ 100 mls/hr IVPB Q1H [facility] Rx#: [id number] Sodium Chloride 0.9% 1, 1100 300 000 ml @ 100 mls/hr IV . Q10H [facility] Rx#:[id number] Sodium Chloride 0.9% 1, 780 000 ml @ 130 mls/hr IV . Q7H42M [facility] Rx#:[id number] Vancomycin 1,000 mg In 250 Sodium Chloride 0.9% 250 ml @ 125 mls/hr IVPB ONCE [facility] Rx#:[id number] Intake, IV Titration 900 Amount Magnesium Sulfate-D5w Pmx 200 1 gm In Dextrose/Water 1 100ml.bag @ 100 mls/hr IVPB Q1H [facility] Rx#: [id number] Potassium Chloride 20 meq 150 In Water For Injection 1 100ml.bag @ 50 mls/hr IVPB Q2H [facility] Rx#: [id number] Sodium Chloride 0.9% 1, 300 000 ml @ 100 mls/hr IV . Q10H [facility] Rx#:[id number] Vancomycin 1,000 mg In 250 Sodium Chloride 0.9% 250 ml @ 125 mls/hr IVPB Q12H [facility] Rx#:[id number] Output: Urine 1370 910 290 Other: Voiding Method Indwelling Catheter Indwelling Catheter Indwelling Catheter - Labs CBC & Chem 7: 12/19/23 03:28 12/19/23 03:28 Labs: Abnormal Lab Results - Last 24 Hours (Table) 12/18/23 12/19/23 12/19/23 Range/Units 09:35 03:28 03:28 WBC 11.2 H (3.8-10.6) k/uL RBC 3.65 L (4.30-5.90) m/uL Hgb 12.4 L (13.0-17.5) gm/dL Hct 36.8 L (39.0-53.0) % MCV 100.7 H (80.0-100.0) fL Neutrophils # 8.1 H (1.3-7.7) k/uL Sodium 132 L (137-145) mmol/L BUN 2 L (9-20) mg/dL Creatinine 0.43 L (0.66-1.25) mg/dL Calcium 8.2 L (8.4-10.2) mg/dL C-Reactive Protein 15.0 H (<1.0) mg/dL Microbiology - Last 24 Hours (Table) 12/18/23 11:09 Gram Stain - Preliminary Sputum 12/17/23 05:10 Blood Culture - Preliminary Blood 12/17/23 04:50 Blood Culture - Preliminary Blood
--- NOTE | 2023-12-19 10:36 | XR ---
EXAMINATION TYPE: XR chest 1V DATE OF EXAM: 12/19/2023 5:30 AM CLINICAL INDICATION:Male, 63 years old with history of SOB; [facility] COMPARISON: 12/18/2023 and before TECHNIQUE: XR chest 1V Portable AP radiograph of the chest.. FINDINGS: EKG leads overlie the chest. No indwelling lines are seen. Other extraneous densities are seen inclu ding oxygen tubing. Some interval improvement in the diffuse interstitial and alveolar opacities throughout the right tricia g. Slightly improved aeration of lesser opacities in the left mid to lower lung zones. Left basilar s carring or atelectasis. No visible pneumothorax. Costophrenic angles are relatively well-defined with out sizable effusion suggested. Cardiomediastinal silhouette shows no significant change. Heart size upper normal. Mildly tortuous ao rta. Osseous structures appear grossly unchanged with no acute pathology suggested. IMPRESSION: Slightly improved aeration of the lungs, with findings as above.
[2023-12-19 12:05] LABS: Glucose,Whole Blood 107 mg/dL (70-110)
--- NOTE | 2023-12-19 12:44 | CDI ---
Documentation Clarification Form Date: 12/19/2023 12:22:04 PM From: Deb Larsen RN CCDS Phone: [phone] Admit Date: 12/17/2023 03:39:00 AM Patient Name: Dorian Webb Visit Number: [id number] Discharge Date: ATTENTION: The Clinical Documentation Specialists (CDI) and [facility] Coding Staff appreciate your assistance in clarifying documentation. Please respond to the clarification below the line at the bottom and electronically sign. The CDI & [facility] Coding staff will review the response and follow-up if needed. Please note: Queries are made part of the Legal Health Record. If you have any questions, please contact the author of this message via ITS. Dr. Ying Nugent The patient is being described as muscle wasting, significant loss of total body muscle mass and malnutrition and deconditioning. Documented 12/16, Pulmonary consult: Based on this information and the findings below, is there an additional diagnosis that is clinically appropriate for this patient? History/Risk Factors: 63-year-old male presents to the ED with altered mental status, tremor and fever. Medical History: ETOH abuse, DTs, chronic low back pain, herniated discs, scoliosis, spinal stenosis, Advanced pulmonary fibrosis on home oxygen 3L and chronically debilitated. 12/16, Pulmonary consult. Clinical Indicators: RD Consult Assessment Current BMI: 18.7 Wgt 55.8kg Hgt 5ft 8in Estimated Nutritional Needs in Kcals: Energy formula 25-30 Kcals/Kg; Energy Needs [id number] Estimated Protein Needs: Estimated protein1.2grams/kg; Estimated protein needs grams/day 84. Fluid Formula 1ml/Kcal; Estimated Fluid needs 1746mls/day Unintended weight loss related to decreased appetite/caloric intake associated with recent hospitalization Treatment: Texture modified diet, chopped. Diet and supplement education. Monitoring po intake including supplements. Supplements: Vanilla Enlive TID Is there an additional diagnosis that is clinically appropriate for this patient? [ ] Severe Protein-Calorie Malnutrition [ ] No additional diagnosis/Not clinically significant [ ] Other condition, please specify [ ] Unable to Determine In responding to this query, please exercise your independent professional judgment. The [facility] Coding Staff and Clinical Documentation Specialists appreciate your assistance in clarifying documentation, maintaining compliance with coding guidelines, accurately documenting patients condition and capturing severity of illness. The fact that a question is asked does not imply that any particular answer is desired or expected. Communication forms are a method of clarifying documentation and are made part of the Legal Health Record. Thank you in advance for your clarification. Last Reviewed March 2023 Malnutrition Characteristics for Moderate and Severe Malnutrition Type of Malnutrition Acute Illness or Injury Chronic Illness Degree of Malnutrition Non-severe (moderate) Malnutrition Severe Malnutrition Non-severe (moderate) Malnutrition Severe Malnutrition Energy Intake <75% for >7 days = 50% for = 5 days <75% for = 1 month =75% for = 1 month Weight Loss 1-2% in one week, 5% in 1 month, 7.5% in 3 months 2% in one week, >5% in 1 month, >7.5% in 3 months 5% in one month, 7.5% in 3 months, 10% in 6 months, 20% in 1 year >5% in one month, >7.5% in 3 months, >10% in 6 months, >20% in 1 year Body Fat Wasting Mild Moderate Mild Severe Muscle Wasting Mild Moderate Mild Severe Presence of Edema Mild Moderate to Severe Mild Severe Carpet Floor Layer Apprentice Strength Not applicable Measurably Reduced Not applicable Measurably Reduced Source: Jesus JV, Moriah P, Rodríguez G, et al. Consensus statement: Academy of Nutrition and Dietetics and [place] Society for Parenteral and Enteral Nutrition: characteristics recommended for the identification and documentation of adult malnutrition (undernutrition).JPEN J Parenter Enteral Nutr. 2012;36(3):275-283. Documented in the pulmonary note 12/19 Dr. Cheney: Severeprotein calorie malnutrition. (Template Last Revised: March 2023) MTDD
--- NOTE | 2023-12-19 12:53 | CDI ---
Documentation Clarification Form Date: 12/19/2023 12:44:41 PM From: Deb Larsen RN CCDS Phone: [phone] Admit Date: 12/17/2023 03:39:00 AM Patient Name: Dorian Webb Visit Number: [id number] Discharge Date: ATTENTION: The Clinical Documentation Specialists (CDI) and [facility] Coding Staff appreciate your assistance in clarifying documentation. Please respond to the clarification below the line at the bottom and electronically sign. The CDI & [facility] Coding staff will review the response and follow-up if needed. Please note: Queries are made part of the Legal Health Record. If you have any questions, please contact the author of this message via ITS. Dr. Shyann Arredondo A Coccyx pressure ulcer is documented by Nursing in pressure injury assessment, . Based on this information and the findings below, is there an additional diagnosis that is clinically appropriate for this patient? History/Risk Factors: 63-year-old male presents to the ED with altered mental status, tremor and fever. Medical History: ETOH abuse, DTs, chronic low back pain, herniated discs, scoliosis, spinal stenosis, Advanced pulmonary fibrosis on home oxygen 3L and chronically debilitated. 12/16, Pulmonary consult. Clinical Indicators: Location: Coccyx Wound description: Dark red area on coccyx, slowly blanchable. Treatment: Turning patient 2Qhrs, Air mattress, Pillow elevating arms and heels on Specialty bed. Zinc paste Is there an additional diagnosis that is clinically appropriate for this patient? [x] Coccyx Pressure Ulcer Stage 1 [ ] Other condition, please specify [ ] Unable to determine Clinical Definitions: Stage 1 Pressure Ulcer: intact skin, non-blanching redness of local area Stage 2 Pressure Ulcer: Partial thickness, loss of dermis, pink wound bed Stage 3 Pressure Ulcer: Full thickness tissue loss Stage 4 Pressure Ulcer: Full thickness tissue loss with exposed bone, tendon, or muscle. Unstageable pressure ulcer: Full thickness tissue loss in which the base of the ulcer is covered by slough (yellow, page, rios, green or brown) and/or eschar (page, brown or black) in the wound bed. (Template Last Revised: November 2020) MTDD
[2023-12-19] MEDS: VANCOMYCIN 1,000 MG in SODIUM CHLORIDE 0.9% 250 ML IVPB SCH (12:57)
--- NOTE | 2023-12-19 14:15 | P.PN ---
Subjective Progress Note Date: 12/19/23 Principal diagnosis: Acute metabolic encephalopathy and acute on chronic hypoxic respiratory failure secondary to IPF. This is a 63-year-old male patient was brought into the ICU because of altered mentation. The patient has history of advanced pulmonary fibrosis. The patient has been diagnosed having IPF few years back and the patient has been treated with Ofev and he has severe restrictive lung disease with an FVC of 45% predicted and is also oxygen dependent at 3 L/min nasal cannula. He has history of alcoholism and the patient is chronically debilitated. He drinks alcohol excessively approximately 7 beers a day and he also drinks 1/5 of peppermint schnapps every day. The patient was in the hospital back in October 2023 and at that time the patient sustained acute hypoxic respiratory failure and required intubation mechanical ventilation. Note that during his hospital stay, the patient also sustained some alcohol withdrawal symptoms. He was ultimately stabilized and he was discharged to be readmitted yesterday due to diminished level of consciousness, increased shakiness, confusion, unable to communicate and unable to provide appropriate history. On examination, the patient r shows signs of significant debility, muscle wasting and significant loss of total body muscle mass and malnutrition and deconditioning. The patient was moved to the intensive care unit. Earlier this morning, I had a sitter at the bedside and I was able to briefly communicate with the patient. Nevertheless, he was obviously encephalopathic. He was able to maintain eye contact. He was saying few words and following simple commands and following that and the patient became more agitated he was given Ativan and he became more rested. Obviously, the shakiness is not a sign of seizure at this point in time. He was given Keppra overnight. At time of my evaluation the patient was able to communicate even while he was having those shakes. It is possible that this may be some signs of tremors, delirium tremens this been going on. The viral screen has been negative. Likely his level was at 2.9. The blood gas was done overnight showed a pH of 7.36 with a pCO2 of 44 and pO2 of 61 and this was an FiO2 of 44%. The patient's WBC count at 15.3, it was 4.8 and platelet count of 270. Normal coagulation profile. BUN is at 40 with a creatinine of 0.5 and sodium levels at 134 with a potassium level of 4.8. LFTs are normal. UA is showing possible blood and +1 glucose. No signs of any infection. Alcohol level less than 10. The chest x-ray is consistent with pulmonary fibrosis and the patient has small lung volumes bilaterally and scattered pulmonary opacities favor scarring. An acute superimposed process cannot be completely ruled out. CAT scan of the brain that was done in the emergency showed no acute hemorrhage hydrocephalus or mass effects. At this point in time, the patient is on 5 L of oxygen by nasal cannula with a pulse ox of 100%. Hemodynamically stable. No reported fever. There was a temperature max of 100.2 during this current admission. Currently afebrile. Cardiac rhythm is sinus. On today's evaluation of 12/18/2023, the patient is arousable and awake and he is following some simple commands and answering questions. Overnight, the patient received a total of 4 mg of Ativan and the last dose was given to him at 9:21 P M. He is awake and alert and communicating. Extremely debilitated. Extremely weak. Has a weak cough. Oral mucosa remains dry. He was on oxygen and he was brought up to 13 L and he was weaned down to 10 L and I further cut down the oxygen flow to 5 L this morning. He is on normal saline at rate of 130 cc an hour. A repeat chest x-ray was done today and shows consolidation and chronic fibrotic changes. There is worsening of the consolidation airspace disease on the right compared to yesterday's chest x-ray. Suspected aspiration pneumonia. Based on that, the patient was covered with IV Zosyn and vancomycin. The white cell count today is at 14.1 with a hemoglobin 11.7 and a platelet count of 254. BUN is at 2 with a creatinine of 0.4 and sodium levels at 131 with a potassium level of 3.1. LFTs are within normal limits. The patient is extremely debilitated and weak. May benefit from a Dobbhoff catheter insertion. This may be needed at a later stage IV medication enteral feeding. Hemodynamically stable. Neurology on the case. No evidence of any seizures. He is maintained on Keppra. EEG is to follow. No neck stiffness. No fever at this point in time. Patient was reevaluated today on 12/19/2023, remains in the ICU, he is now on 5 L nasal cannula his mental status has significantly improved, remains on IV fluid at 100 cc/h, remains on Zosyn and vancomycin, overall the patient is steadily improving he feels better, nonetheless patient is chronically ill and his illness is mostly related to his severe interstitial lung disease/pulmonary fibrosis. WBC count today is 11.2 hemoglobin 12.4 basic metabolic profile is normal renal profile is normal. Chest x-ray continues to show bilateral interstitial lung disease, and dilated bowel loops Objective - Vital Signs Vital signs: Vital Signs Temp 97.9 F 12/19/23 09:00 Pulse 128 H 12/19/23 13:00 Resp 33 H 12/19/23 12:00 BP 142/91 12/19/23 13:00 Pulse Ox 98 12/19/23 12:00 FiO2 Intake & Output 12/18/23 12/19/23 12/19/23 18:59 06:59 18:59 Intake Total 1855 1650 850 Output Total 1370 910 665 Balance 485 740 185 Weight 55.8 kg 55.8 kg Intake: IV 955 1650 850 Piperacillin-Tazobactam 3 175 50 .375 gm In Sodium Chloride 0.9% 100 ml @ 25 mls/hr IVPB Q8HR [facility] Rx# :[id number] Potassium Chloride 10 meq 300 In Water For Injection 1 100ml.bag @ 100 mls/hr IVPB Q1H [facility] Rx#: [id number] Sodium Chloride 0.9% 1, 1100 800 000 ml @ 100 mls/hr IV . Q10H [facility] Rx#:[id number] Sodium Chloride 0.9% 1, 780 000 ml @ 130 mls/hr IV . Q7H42M [facility] Rx#:[id number] Vancomycin 1,000 mg In 250 Sodium Chloride 0.9% 250 ml @ 125 mls/hr IVPB ONCE [facility] Rx#:[id number] Intake, IV Titration 900 Amount Magnesium Sulfate-D5w Pmx 200 1 gm In Dextrose/Water 1 100ml.bag @ 100 mls/hr IVPB Q1H [facility] Rx#: [id number] Potassium Chloride 20 meq 150 In Water For Injection 1 100ml.bag @ 50 mls/hr IVPB Q2H [facility] Rx#: [id number] Sodium Chloride 0.9% 1, 300 000 ml @ 100 mls/hr IV . Q10H [facility] Rx#:[id number] Vancomycin 1,000 mg In 250 Sodium Chloride 0.9% 250 ml @ 125 mls/hr IVPB Q12H [facility] Rx#:[id number] Output: Urine 1370 910 665 Other: Voiding Method Indwelling Catheter Indwelling Catheter Indwelling Catheter - Exam General: Reveals 63-year-old white male, on 5 L nasal cannula, debilitated, weak, in mild respiratory distress. Skin: Skin is warm and dry and no rashes or lesions are noted. Eye: Pupils are equal, round and reactive to light, extra-ocular movements are intact; there is normal conjunctiva bilaterally. Ears, nose, mouth and throat: There are moist mucous membranes and no oral lesions. Neck: The neck is supple, there is no tenderness or JVD. Cardiovascular: There is a regular rate and rhythm. No murmur, rub or gallop is appreciated. Respiratory: Velcro rales noted at the bases bilaterally. Gastrointestinal: Soft, non-distended, non-tender abdomen without masses or organomegaly noted. There is no rebound or guarding present. Bowel sounds are unremarkable. Back: There is no tenderness to palpation in the midline. There is no obvious deformity. Musculoskeletal: Significant muscle wasting is noted. Neurological: Alert oriented x 3 no gross focal deficit Psychiatric: Cooperative, appropriate mood & affect, normal judgment. - Labs CBC & Chem 7: 12/19/23 03:28 12/19/23 03:28 Labs: Abnormal Lab Results - Last 24 Hours (Table) 12/19/23 12/19/23 Range/Units 03:28 03:28 WBC 11.2 H (3.8-10.6) k/uL RBC 3.65 L (4.30-5.90) m/uL Hgb 12.4 L (13.0-17.5) gm/dL Hct 36.8 L (39.0-53.0) % MCV 100.7 H (80.0-100.0) fL Neutrophils # 8.1 H (1.3-7.7) k/uL Sodium 132 L (137-145) mmol/L BUN 2 L (9-20) mg/dL Creatinine 0.43 L (0.66-1.25) mg/dL Calcium 8.2 L (8.4-10.2) mg/dL Microbiology - Last 24 Hours (Table) 12/17/23 04:50 Blood Culture - Preliminary Blood 12/17/23 05:10 Blood Culture - Preliminary Blood 12/18/23 11:09 Gram Stain - Preliminary Sputum Assessment and Plan Assessment: Impression Acute toxic metabolic encephalopathy Possible acute alcohol withdrawal is a possibility. Acute on chronic hypoxic respiratory failure Severe protein calorie malnutrition Idiopathic pulmonary fibrosis/interstitial lung disease mostly on 3 L nasal cannula at home Degenerative joint disease Extreme medical debility Recommendation: Continue oxygen and titrate accordingly Continue Ativan for agitation and possible delirium tremens Continue hydration Keppra to be addressed by neurology on the case. Continue GI DVT prophylaxis Consider transferring the patient out of the ICU to a regular medical floor Will continue to follow Time with Patient: Less than 30
--- NOTE | 2023-12-19 14:51 | P.PN ---
Subjective Progress Note Date: 12/19/23 I am seeing the patient for the first time during this admission. Please refer to Dr. Schrader's notes for further details. It seems the patient has altered mental status likely due to toxic metabolic encephalopathy and the patient has possible related pneumonia. During this hospital stay it was felt there was seizure-like activity suspected related due to acute delirium versus withdrawal and it was felt the seizure appears less likely. He had an EEG which did not reveal any epileptiform discharges. The Keppra is being titrated down. Objective - Vital Signs Vital signs: Vital Signs Temp 97.9 F 12/19/23 09:00 Pulse 128 H 12/19/23 13:00 Resp 33 H 12/19/23 12:00 BP 142/91 12/19/23 13:00 Pulse Ox 98 12/19/23 12:00 FiO2 Intake & Output 12/18/23 12/19/23 12/19/23 18:59 06:59 18:59 Intake Total 1855 1650 850 Output Total 1370 910 665 Balance 485 740 185 Weight 55.8 kg 55.8 kg Intake: IV 955 1650 850 Piperacillin-Tazobactam 3 175 50 .375 gm In Sodium Chloride 0.9% 100 ml @ 25 mls/hr IVPB Q8HR [facility] Rx# :[id number] Potassium Chloride 10 meq 300 In Water For Injection 1 100ml.bag @ 100 mls/hr IVPB Q1H [facility] Rx#: [id number] Sodium Chloride 0.9% 1, 1100 800 000 ml @ 100 mls/hr IV . Q10H [facility] Rx#:[id number] Sodium Chloride 0.9% 1, 780 000 ml @ 130 mls/hr IV . Q7H42M [facility] Rx#:[id number] Vancomycin 1,000 mg In 250 Sodium Chloride 0.9% 250 ml @ 125 mls/hr IVPB ONCE [facility] Rx#:[id number] Intake, IV Titration 900 Amount Magnesium Sulfate-D5w Pmx 200 1 gm In Dextrose/Water 1 100ml.bag @ 100 mls/hr IVPB Q1H [facility] Rx#: [id number] Potassium Chloride 20 meq 150 In Water For Injection 1 100ml.bag @ 50 mls/hr IVPB Q2H [facility] Rx#: [id number] Sodium Chloride 0.9% 1, 300 000 ml @ 100 mls/hr IV . Q10H [facility] Rx#:[id number] Vancomycin 1,000 mg In 250 Sodium Chloride 0.9% 250 ml @ 125 mls/hr IVPB Q12H [facility] Rx#:[id number] Output: Urine 1370 910 665 Other: Voiding Method Indwelling Catheter Indwelling Catheter Indwelling Catheter - Exam General: Lying in bed and is not in acute distress. Neuro: The patient is awake alert oriented to self place and time. The patient's followed simple commands. No aphasia and no neglect. Pupils are round equal reactive to light. Visual urbano are full to confrontation. Extraocular movement is intact and no nystagmus. No facial weakness. No dysarthria Motor is lifting all extremities above gravity and appears equally. - Labs CBC & Chem 7: 12/19/23 03:28 12/19/23 03:28 Labs: Abnormal Lab Results - Last 24 Hours (Table) 12/19/23 12/19/23 Range/Units 03:28 03:28 WBC 11.2 H (3.8-10.6) k/uL RBC 3.65 L (4.30-5.90) m/uL Hgb 12.4 L (13.0-17.5) gm/dL Hct 36.8 L (39.0-53.0) % MCV 100.7 H (80.0-100.0) fL Neutrophils # 8.1 H (1.3-7.7) k/uL Sodium 132 L (137-145) mmol/L BUN 2 L (9-20) mg/dL Creatinine 0.43 L (0.66-1.25) mg/dL Calcium 8.2 L (8.4-10.2) mg/dL Microbiology - Last 24 Hours (Table) 12/17/23 04:50 Blood Culture - Preliminary Blood 12/17/23 05:10 Blood Culture - Preliminary Blood 12/18/23 11:09 Gram Stain - Preliminary Sputum Assessment and Plan Assessment: * Altered mental status, likely due to toxic metabolic encephalopathy. Possible related to pneumonia. Patient's has minimal elevated ammonia which resolved and possible hepatic encephalopathy. Alcohol withdrawal less likely, as patient has been sober since end of September 2023---mentation resolved. * Reported Seizure-like activity: It was Suspect related to acute delirium versus withdrawal. Seizure disorder appears less likely. * Pulmonary fibrosis * Acute and chronic respiratory failure with hypoxia * Pulmonary hypertension * Alcohol dependence with withdrawal, sober since end of September 2023. * Elevated LFTs in past which has resolved * Mildly elevated ammonia 32 on arrival, now normal. * Thrombocytopenia * Generalized anxiety disorder * Depression * Generalized muscle weakness * Marijuana use Plan: * EEG was abnormal due to background slowing, disorganization, suggestive of mild to moderate encephalopathy. No focal, lateralized or epileptiform activity was seen. * Per Dr. Schrader, as mentation has normalized, and EEG did not reveal any epileptiform activity, we will decrease Keppra down to 500 mg twice a day. May stop Keppra in a day from now. * Infectious disease also on board. Patient currently on Zosyn 3.375 g every 8 hours, and vancomycin 1 g every 12 hours. * Patient also has history of alcoholism, currently on CIWA protocol. Continue thiamine, folate. Patient's B12 399 on 12/17/2023. Patient will be started on B12 and folate. * Other medical management as per IM and pulmonary medicine. The plan is discussed with patient and who is at bedside. Also discussed with primary team. Will continue to follow. Time with Patient: Less than 30
[2023-12-19] MEDS: OFEV 150 MG PO SCH (15:14)
[2023-12-19] MEDS: FUROSEMIDE 10 MG/ML 4 ML VIAL IV STA (17:59)
[2023-12-19] MEDS: SODIUM CHLORIDE 0.9% 1,000 ML IV SCH (18:00)
--- NOTE | 2023-12-19 18:17 | P.PN ---
Subjective Progress Note Date: 12/19/23 Principal diagnosis: Reason for follow-up is likely aspiration pneumonia Patient is a 63-year-old male with a past medical history significant for EtOH abuse DTs pulmonary fibrosis on home O2 recent admission to the hospital treated for DTs patient has been brought back to the hospital for evaluation of altered mental status and there was concern for possible aspirat ion pneumonia in this patient who did have a fever on presentation to the hospital. On today's visit that is 12/19/2023,the patient did have elevation of 100.8 this afternoon, patient mention breathing more comfortably however he still requiring high flow nasal cannula oxygen denies having any chest pain no worsening cough or sputum production no vomiting or diarrhea. Patient white count is 11.2, creatinine 0.43 blood and sputum cultures pending Objective - Vital Signs Vital signs: Vital Signs Temp 97.9 F 12/19/23 09:00 Pulse 130 H 12/19/23 15:00 Resp 38 H 12/19/23 15:00 BP 142/91 12/19/23 13:00 Pulse Ox 86 L 12/19/23 15:00 FiO2 Intake & Output 12/18/23 12/19/23 12/19/23 18:59 06:59 18:59 Intake Total 1855 1650 950 Output Total 1370 910 840 Balance 485 740 110 Weight 55.8 kg 55.8 kg Intake: IV 955 1650 950 Piperacillin-Tazobactam 3 175 50 .375 gm In Sodium Chloride 0.9% 100 ml @ 25 mls/hr IVPB Q8HR [facility] Rx# :[id number] Potassium Chloride 10 meq 300 In Water For Injection 1 100ml.bag @ 100 mls/hr IVPB Q1H [facility] Rx#: [id number] Sodium Chloride 0.9% 1, 1100 900 000 ml @ 100 mls/hr IV . Q10H [facility] Rx#:[id number] Sodium Chloride 0.9% 1, 780 000 ml @ 130 mls/hr IV . Q7H42M [facility] Rx#:[id number] Vancomycin 1,000 mg In 250 Sodium Chloride 0.9% 250 ml @ 125 mls/hr IVPB ONCE [facility] Rx#:[id number] Intake, IV Titration 900 Amount Magnesium Sulfate-D5w Pmx 200 1 gm In Dextrose/Water 1 100ml.bag @ 100 mls/hr IVPB Q1H [facility] Rx#: [id number] Potassium Chloride 20 meq 150 In Water For Injection 1 100ml.bag @ 50 mls/hr IVPB Q2H [facility] Rx#: [id number] Sodium Chloride 0.9% 1, 300 000 ml @ 100 mls/hr IV . Q10H [facility] Rx#:[id number] Vancomycin 1,000 mg In 250 Sodium Chloride 0.9% 250 ml @ 125 mls/hr IVPB Q12H [facility] Rx#:[id number] Output: Urine 1370 910 840 Other: Voiding Method Indwelling Catheter Indwelling Catheter Indwelling Catheter - Exam GENERAL DESCRIPTION: Middle-age male lying in bed in no distress RESPIRATORY SYSTEM: Unlabored breathing , decreased breath sounds at bases HEART: S1 S2 regular rate and rhythm , ABDOMEN: Soft , no tenderness EXTREMITIES: No edema feet - Labs CBC & Chem 7: 12/19/23 03:28 12/19/23 03:28 Labs: Abnormal Lab Results - Last 24 Hours (Table) 12/19/23 12/19/23 Range/Units 03:28 03:28 WBC 11.2 H (3.8-10.6) k/uL RBC 3.65 L (4.30-5.90) m/uL Hgb 12.4 L (13.0-17.5) gm/dL Hct 36.8 L (39.0-53.0) % MCV 100.7 H (80.0-100.0) fL Neutrophils # 8.1 H (1.3-7.7) k/uL Sodium 132 L (137-145) mmol/L BUN 2 L (9-20) mg/dL Creatinine 0.43 L (0.66-1.25) mg/dL Calcium 8.2 L (8.4-10.2) mg/dL Microbiology - Last 24 Hours (Table) 12/17/23 04:50 Blood Culture - Preliminary Blood 12/17/23 05:10 Blood Culture - Preliminary Blood 12/18/23 11:09 Gram Stain - Preliminary Sputum Assessment and Plan (1) Aspiration pneumonia Current Visit: Yes Status: Acute Code(s): J69.0 - PNEUMONITIS DUE TO INHALATION OF FOOD AND VOMIT SNOMED Code(s): 259009817 Plan: 1patient presented to hospital with sepsis in this patient who did have fever tachycardia elevated white count concerning for possible aspiration pneumonitis underlying [employer] infection less likely cannot entirely excluded abdomen was soft on clinical examination and no evidence of any cellulitis urine has been n egative 2-blood and sputum culture currently pending 3- repeat chest x-ray showing significant worsening on the right side concerning for aspiration pneumonia, patient is currently covered with vancomycin Zosyn to continue while waiting for the culture to finalize and monitor clinical course closely Dictation was produced using [employer] dictation software. please excuse any grammatical, word or spelling errors. Time with Patient: Less than 30
[2023-12-19 18:26] LABS: Glucose,Whole Blood 121 mg/dL (70-110)
[2023-12-19] MEDS ORDERED: OFEV 150 MG PO SCH (21:00)
[2023-12-19 23:31] LABS: Glucose,Whole Blood 108 mg/dL (70-110)
[2023-12-20 03:42] LABS: Basophils % (A) 0 %; Eosinophils # (A) 0.5 k/uL (0-0.7); Eosinophils % (A) 5 %; HCT 33.5 % (39.0-53.0); HGB 10.9 gm/dL (13.0-17.5); Lymphocytes # (A) 1.1 k/uL (1.0-4.8); Lymphocytes % (A) 11 %; MCH 34.1 pg (25.0-35.0); MCHC 32.5 g/dL (31.0-37.0); MCV 104.7 fL (80.0-100.0); Macrocytosis Slight; Mean Platelet Volume 8.8; Monocytes # (A) 0.6 k/uL (0-1.0); Monocytes % (A) 6 %; Neutrophils # (A) 8.1 k/uL (1.3-7.7); Neutrophils % (A) 76 %; Platelet Count 210 k/uL (150-450); RDW 13.9 % (11.5-15.5); WBC 10.7 k/uL (3.8-10.6)
[2023-12-20 04:05] LABS: African American GFR (CKD) >90 (>60 ml/min/1.73 sqM); Non-African American GFR(CKD) >90 (>60 ml/min/1.73 sqM)
[2023-12-20 04:36] LABS: African American GFR (CKD) >90 (>60 ml/min/1.73 sqM); Anion Gap 9 mmol/L; Blood Urea Nitrogen 3 mg/dL (9-20); Calcium 8.6 mg/dL (8.4-10.2); Carbon Dioxide 22 mmol/L (22-30); Chloride 107 mmol/L (98-107); Glucose 94 mg/dL (74-99); Non-African American GFR(CKD) >90 (>60 ml/min/1.73 sqM); Sodium 138 mmol/L (137-145)
[2023-12-20 04:39] LABS: Potassium 3.7 mmol/L (3.5-5.1)
[2023-12-20] MEDS: VANCOMYCIN TROUGH DUE 1 EACH MISC MISCELLANE ONE (04:40)
[2023-12-20 06:15] LABS: Glucose,Whole Blood 98 mg/dL (70-110)
[2023-12-20] MEDS: POTASSIUM CHLORIDE 10 MEQ in WATER FOR INJECTION 1 100ML.BAG IVPB SCH (08:45)
[2023-12-20] MEDS: ALPRAZolam 0.5 MG TAB PO SCH (10:02)
[2023-12-20 11:36] LABS: Glucose,Whole Blood 104 mg/dL (70-110)
[2023-12-20] MEDS: methylPREDNISolone SOD SUCCI 125 MG/2 ML VIAL IV SCH (11:48)
--- NOTE | 2023-12-20 12:58 | P.PN ---
Subjective Progress Note Date: 12/20/23 Principal diagnosis: Acute metabolic encephalopathy and acute on chronic hypoxic respiratory failure secondary to IPF. This is a 63-year-old male patient was brought into the ICU because of altered mentation. The patient has history of advanced pulmonary fibrosis. The patient has been diagnosed having IPF few years back and the patient has been treated with Ofev and he has severe restrictive lung disease with an FVC of 45% predicted and is also oxygen dependent at 3 L/min nasal cannula. He has history of alcoholism and the patient is chronically debilitated. He drinks alcohol excessively approximately 7 beers a day and he also drinks 1/5 of peppermint schnapps every day. The patient was in the hospital back in October 2023 and at that time the patient sustained acute hypoxic respiratory failure and required intubation mechanical ventilation. Note that during his hospital stay, the patient also sustained some alcohol withdrawal symptoms. He was ultimately stabilized and he was discharged to be readmitted yesterday due to diminished level of consciousness, increased shakiness, confusion, unable to communicate and unable to provide appropriate history. On examination, the patient r shows signs of significant debility, muscle wasting and significant loss of total body muscle mass and malnutrition and deconditioning. The patient was moved to the intensive care unit. Earlier this morning, I had a sitter at the bedside and I was able to briefly communicate with the patient. Nevertheless, he was obviously encephalopathic. He was able to maintain eye contact. He was saying few words and following simple commands and following that and the patient became more agitated he was given Ativan and he became more rested. Obviously, the shakiness is not a sign of seizure at this point in time. He was given Keppra overnight. At time of my evaluation the patient was able to communicate even while he was having those shakes. It is possible that this may be some signs of tremors, delirium tremens this been going on. The viral screen has been negative. Likely his level was at 2.9. The blood gas was done overnight showed a pH of 7.36 with a pCO2 of 44 and pO2 of 61 and this was an FiO2 of 44%. The patient's WBC count at 15.3, it was 4.8 and platelet count of 270. Normal coagulation profile. BUN is at 40 with a creatinine of 0.5 and sodium levels at 134 with a potassium level of 4.8. LFTs are normal. UA is showing possible blood and +1 glucose. No signs of any infection. Alcohol level less than 10. The chest x-ray is consistent with pulmonary fibrosis and the patient has small lung volumes bilaterally and scattered pulmonary opacities favor scarring. An acute superimposed process cannot be completely ruled out. CAT scan of the brain that was done in the emergency showed no acute hemorrhage hydrocephalus or mass effects. At this point in time, the patient is on 5 L of oxygen by nasal cannula with a pulse ox of 100%. Hemodynamically stable. No reported fever. There was a temperature max of 100.2 during this current admission. Currently afebrile. Cardiac rhythm is sinus. On today's evaluation of 12/18/2023, the patient is arousable and awake and he is following some simple commands and answering questions. Overnight, the patient received a total of 4 mg of Ativan and the last dose was given to him at 9:21 P M. He is awake and alert and communicating. Extremely debilitated. Extremely weak. Has a weak cough. Oral mucosa remains dry. He was on oxygen and he was brought up to 13 L and he was weaned down to 10 L and I further cut down the oxygen flow to 5 L this morning. He is on normal saline at rate of 130 cc an hour. A repeat chest x-ray was done today and shows consolidation and chronic fibrotic changes. There is worsening of the consolidation airspace disease on the right compared to yesterday's chest x-ray. Suspected aspiration pneumonia. Based on that, the patient was covered with IV Zosyn and vancomycin. The white cell count today is at 14.1 with a hemoglobin 11.7 and a platelet count of 254. BUN is at 2 with a creatinine of 0.4 and sodium levels at 131 with a potassium level of 3.1. LFTs are within normal limits. The patient is extremely debilitated and weak. May benefit from a Dobbhoff catheter insertion. This may be needed at a later stage IV medication enteral feeding. Hemodynamically stable. Neurology on the case. No evidence of any seizures. He is maintained on Keppra. EEG is to follow. No neck stiffness. No fever at this point in time. Patient was reevaluated today on 12/19/2023, remains in the ICU, he is now on 5 L nasal cannula his mental status has significantly improved, remains on IV fluid at 100 cc/h, remains on Zosyn and vancomycin, overall the patient is steadily improving he feels better, nonetheless patient is chronically ill and his illness is mostly related to his severe interstitial lung disease/pulmonary fibrosis. WBC count today is 11.2 hemoglobin 12.4 basic metabolic profile is normal renal profile is normal. Chest x-ray continues to show bilateral interstitial lung disease, and dilated bowel loops Reevaluate today on 12/20/2023, patient remains in the ICU, now on 10 L nasal cannula, last night he was on BiPAP 12//40%. Remains marginal at best, patient has shortness of breath with any activity, his IV fluids at KVO he is on vancomycin and Zosyn, patient is quite anxious, and I recommend today Xanax 0.5 mg every 8 hours as needed, and I am also recommending patient to go to airvo as well as continue Solu-Medrol. Patient remains on antibiotics as per infectious disease on the case, I honestly believe the patient has worsening IPF, and prognosis is extremely poor and guarded. Today I had a long discussion with the patient about CODE STATUS, he wants to remain full code, and he was made aware that potentially if he ends up intubated mechanically ventilated the most likely chance that he would end up with a tracheostomy and PEG tube placement, and he clearly stated to me that he would like to see his grandchildren and there is one coming on the way as the patient remains full code at this point Objective - Vital Signs Vital signs: Vital Signs Temp 98.0 F 12/20/23 08:30 Pulse 115 H 12/20/23 11:00 Resp 37 H 12/20/23 11:00 BP 142/100 12/20/23 11:00 Pulse Ox 97 12/20/23 11:00 FiO2 50 12/20/23 08:18 Intake & Output 12/19/23 12/20/23 12/20/23 18:59 06:59 18:59 Intake Total 1145 740 305 Output Total 990 450 575 Balance 155 290 -270 Weight 55.8 kg 56.4 kg Intake: IV 1125 720 105 Piperacillin-Tazobactam 3 125 25 .375 gm In Sodium Chloride 0.9% 100 ml @ 25 mls/hr IVPB Q8HR [facility] Rx# :[id number] Sodium Chloride 0.9% 1, 1000 220 80 000 ml @ 100 mls/hr IV . Q10H [facility] Rx#:[id number] Vancomycin 1,000 mg In 500 Sodium Chloride 0.9% 250 ml @ 125 mls/hr IVPB ONCE STA Rx#:[id number] Intake, IV Titration 20 20 200 Amount Potassium Chloride 10 meq 200 In Water For Injection 1 100ml.bag @ 100 mls/hr IVPB Q1H [facility] Rx#: [id number] Sodium Chloride 0.9% 1, 20 20 000 ml @ 20 mls/hr IV . Q24H [facility] Rx#:[id number] Output: Urine 990 450 575 Other: Voiding Method Urinal Urinal - Exam General: Reveals 63-year-old white male, on 10 L nasal cannula, debilitated, weak, in moderate respiratory distress Skin: Skin is warm and dry and no rashes or lesions are noted. Eye: Pupils are equal, round and reactive to light, extra-ocular movements are intact; there is normal conjunctiva bilaterally. Ears, nose, mouth and throat: There are moist mucous membranes and no oral lesions. Neck: The neck is supple, there is no tenderness or JVD. Cardiovascular: There is a regular rate and rhythm. No murmur, rub or gallop is appreciated. Respiratory: Velcro rales noted at the bases bilaterally. Gastrointestinal: Soft, non-distended, non-tender abdomen without masses or organomegaly noted. There is no rebound or guarding present. Bowel sounds are unremarkable. Back: There is no tenderness to palpation in the midline. There is no obvious deformity. Musculoskeletal: Significant muscle wasting is noted. Neurological: Alert oriented x 3 no gross focal deficit Psychiatric: Cooperative, appropriate mood & affect, normal judgment. - Labs CBC & Chem 7: 12/20/23 03:17 12/20/23 03:17 Labs: Abnormal Lab Results - Last 24 Hours (Table) 12/19/23 12/20/23 12/20/23 Range/Units 18:25 03:17 03:17 WBC 10.7 H (3.8-10.6) k/uL RBC 3.20 L (4.30-5.90) m/uL Hgb 10.9 L (13.0-17.5) gm/dL Hct 33.5 L (39.0-53.0) % MCV 104.7 H (80.0-100.0) fL Neutrophils # 8.1 H (1.3-7.7) k/uL BUN (9-20) mg/dL Creatinine 0.46 L (0.66-1.25) mg/dL POC Glucose (mg/dL) 121 H (70-110) mg/dL 12/20/23 Range/Units 03:17 WBC (3.8-10.6) k/uL RBC (4.30-5.90) m/uL Hgb (13.0-17.5) gm/dL Hct (39.0-53.0) % MCV (80.0-100.0) fL Neutrophils # (1.3-7.7) k/uL BUN 3 L (9-20) mg/dL Creatinine 0.50 L (0.66-1.25) mg/dL POC Glucose (mg/dL) (70-110) mg/dL Microbiology - Last 24 Hours (Table) 12/18/23 16:57 Nasal Screen MRSA/MSSA - Final Nasal Swab 12/17/23 04:50 Blood Culture - Preliminary Blood 12/17/23 05:10 Blood Culture - Preliminary Blood 12/18/23 11:09 Gram Stain - Preliminary Sputum Assessment and Plan Assessment: Impression Acute toxic metabolic encephalopathy Possible acute alcohol withdrawal is a possibility. Acute on chronic hypoxic respiratory failure Severe protein calorie malnutrition Idiopathic pulmonary fibrosis/interstitial lung disease mostly on 3 L nasal cannula at home Degenerative joint disease Extreme medical debility Recommendation: Continue oxygen and titrate accordingly, may consider Airvo today. Continue Xanax every 8 hours as needed Continue hydration Keppra to be addressed by neurology on the case. Continue GI DVT prophylaxis CODE STATUS remains full Continue to monitor in the ICU as I am concerned that the patient may end up requiring intubation mechanical ventilation Will continue to follow Time with Patient: Less than 30
--- NOTE | 2023-12-20 14:58 | P.PN ---
Subjective Progress Note Date: 12/20/23 63-year-old male with PMH of chronic hypoxic respiratory failure due to pulmonary fibrosis 3.5 L home O2, history of alcohol abuse, anxiety and depression presented to the ED for altered mentation and described as family as shaking all day. In the ED he was noted to be waxing and waning with episodes where he yells out his name and other times where he seems to be confused and shaking. Patient was loaded on Keppra and Ativan for what was thought to be seizure like activity. In the ED BP 85/57, HR 122, Tmax 101.5F, RR 28, 87% on RA. CBC WBC 13.3, Hg 12.8, Hct 38.5, MCV 101. Coag panel within normal limits. ABG pH 7.36, pCO2 44. CMP Na 134, bicarb 21, Cr 0.51, glu 100, Ca 8.1. Lactic acid 5.3. UA negative LE or nitrite. UDS positive for opiate, benzodiazepine and THC. Serum EtOH negative. Flu, RSV, COVID negative. TSH 2.43. Procal 0.09. B12 399. Ammonia 32. CRP 15. Brain CT negative for acute changes. CXR scattered parenchymal opacities favoring pulmonary fibrosis. EKG sinus tachycardia. Patient was started on Vanomcyin and Zosyn and admitted for PNA versus meningitis. Initially plans for LP. Neurology and ID consulted, EEG performed showed background slowing, disorganization, suggestive of mild to moderate encephalopathy. His mentation improved and LP was cancelled due to low probabi lity of meningitis. Keppra was titrated down. His altered mentation was thought to be related to possible EtOH withdrawal, aspiration PNA, and polypharmacy. 12/19 Patient was seen in the ICU. Reports breathing improved. Maintained on Vanomcycin and Zosyn. Last dose for Ativan was yesterday around 4:30PM for EtOH withdrawal. Currently on Keppra 500 IV BID being titrated down by Neurology. CBC WBC 10.7 Hg 10.9 Hct 33.5 MCV 104.7. BMP BUN 3 Cr 0.5. CXR done today shows improved interstitial opacities. General: non toxic, no distress, appears at stated age Derm: warm, dry Head: atraumatic, normocephalic, symmetric Eyes: EOMI, no lid lag, anicteric sclera Mouth: no lip lesion, mucus membranes moist Cardiovascular: S1S2 reg, no murmur, positive posterior tibial pulse bilateral, Lungs: CTA bilateral, no rhonchi, no rales , no accessory muscle use Ext: no gross muscle atrophy, no edema, no contractures Neuro: no focal neuro deficits Psych: Alert, oriented, appropriate affect Based on my assessment of this patient, this patient meets a high complexity level of care. Patient has an acute diagnosis of acute metabolic encephalopathy that poses a threat to life or bodily function. Acute metabolic encephalopathy: Multifactorial. EtOH abuse. Aspiration PNA. Polypharmacy. Keppra 500 mg IV BID and wean. Seziure and Fall precautions. Neurology on board. Sepsis due to aspiration PNA: BCx and Sputum Cx prelim negative. Continue Zosyn 3.375g IV TID (D4) and Vancomycin (D4) dosed per pharmacy. Maintain trough at 15. Telemetry monitoring. NS at 20 cc/hr. ID and Pulmonary on board. EtOH abuse with DTs: Ativan PRN for CIWA protocol. Macrocytic anemia: Likely due to EtOH abuse. Acute on chronic hypoxic respiratory failure: Currently on 10L HFNC. DuoNeb PRN for SOB/wheezing. Pulmonary fibrosis CODE STATUS: FULL CODE DVT Prophylaxis: Heparin SQ. GI Prophylaxis: Protonix IV Designated medical POA if patient is not able to make medical decisions for themselves: I have reviewed the following production support consultant notes: Pulmonary, Neurology, ID note. I have reviewed the results of the following tests: CBC, BMP. I have ordered the following tests: I have discussed the care of this patient with the following independent historian: I have independently interpreted the following test below: CXR. I have discussed the management of this patient with the following physician: Objective - Vital Signs Vital signs: Vital Signs Temp 98.0 F 12/20/23 08:30 Pulse 115 H 12/20/23 08:30 Resp 34 H 12/20/23 08:30 BP 173/108 12/20/23 08:30 Pulse Ox 92 L 12/20/23 08:30 FiO2 50 12/20/23 08:18 Intake & Output 12/19/23 12/20/23 12/20/23 18:59 06:59 18:59 Intake Total 1145 740 74 Output Total 990 450 400 Balance 155 290 -326 Weight 55.8 kg 56.4 kg Intake: IV 1125 720 74 Piperacillin-Tazobactam 3 125 25 .375 gm In Sodium Chloride 0.9% 100 ml @ 25 mls/hr IVPB Q8HR [facility] Rx# :[id number] Sodium Chloride 0.9% 1, 1000 220 49 000 ml @ 100 mls/hr IV . Q10H [facility] Rx#:[id number] Vancomycin 1,000 mg In 500 Sodium Chloride 0.9% 250 ml @ 125 mls/hr IVPB ONCE STA Rx#:[id number] Intake, IV Titration 20 20 Amount Sodium Chloride 0.9% 1, 20 20 000 ml @ 20 mls/hr IV . Q24H [facility] Rx#:[id number] Output: Urine 990 450 400 Other: Voiding Method Urinal Urinal - Labs CBC & Chem 7: 12/20/23 03:17 12/20/23 03:17 Labs: Abnormal Lab Results - Last 24 Hours (Table) 12/19/23 12/20/23 12/20/23 Range/Units 18:25 03:17 03:17 WBC 10.7 H (3.8-10.6) k/uL RBC 3.20 L (4.30-5.90) m/uL Hgb 10.9 L (13.0-17.5) gm/dL Hct 33.5 L (39.0-53.0) % MCV 104.7 H (80.0-100.0) fL Neutrophils # 8.1 H (1.3-7.7) k/uL BUN (9-20) mg/dL Creatinine 0.46 L (0.66-1.25) mg/dL POC Glucose (mg/dL) 121 H (70-110) mg/dL 12/20/23 Range/Units 03:17 WBC (3.8-10.6) k/uL RBC (4.30-5.90) m/uL Hgb (13.0-17.5) gm/dL Hct (39.0-53.0) % MCV (80.0-100.0) fL Neutrophils # (1.3-7.7) k/uL BUN 3 L (9-20) mg/dL Creatinine 0.50 L (0.66-1.25) mg/dL POC Glucose (mg/dL) (70-110) mg/dL Microbiology - Last 24 Hours (Table) 12/17/23 04:50 Blood Culture - Preliminary Blood 12/17/23 05:10 Blood Culture - Preliminary Blood 12/18/23 11:09 Gram Stain - Preliminary Sputum
[2023-12-20 18:38] LABS: Glucose,Whole Blood 138 mg/dL (70-110)
--- NOTE | 2023-12-20 21:19 | P.PN ---
Subjective Progress Note Date: 12/20/23 Principal diagnosis: Reason for follow-up is likely aspiration pneumonia Patient is a 63-year-old male with a past medical history significant for EtOH abuse DTs pulmonary fibrosis on home O2 recent admission to the hospital treated for DTs patient has been brought back to the hospital for evaluation of altered mental status and there was concern for possible aspirat ion pneumonia in this patient who did have a fever on presentation to the hospital. On today's visit that is 12/20/2023,the patient is afebrile this morning, patient is on 6 L nasal cannula supplemental oxygen mention breathing comfortably denies any chest pain continue to have a cough with occasional sputum production no hemoptysis no nausea vomiting abdominal pain no diarrhea. Patient white count of 10.7, creatinine 0.50 MRSA nasal screen is negative sputum cultures pending Objective - Vital Signs Vital signs: Vital Signs Temp 100.3 F H 12/20/23 12:00 Pulse 126 H 12/20/23 13:00 Resp 33 H 12/20/23 13:00 BP 145/101 12/20/23 13:00 Pulse Ox 97 12/20/23 13:00 FiO2 50 12/20/23 08:18 Intake & Output 12/19/23 12/20/23 12/20/23 18:59 06:59 18:59 Intake Total 1145 740 665 Output Total 990 450 875 Balance 155 290 -210 Weight 55.8 kg 56.4 kg Intake: IV 1125 720 165 Piperacillin-Tazobactam 3 125 25 .375 gm In Sodium Chloride 0.9% 100 ml @ 25 mls/hr IVPB Q8HR [facility] Rx# :[id number] Sodium Chloride 0.9% 1, 1000 220 140 000 ml @ 100 mls/hr IV . Q10H [facility] Rx#:[id number] Vancomycin 1,000 mg In 500 Sodium Chloride 0.9% 250 ml @ 125 mls/hr IVPB ONCE STA Rx#:[id number] Intake, IV Titration 20 20 500 Amount Potassium Chloride 10 meq 500 In Water For Injection 1 100ml.bag @ 100 mls/hr IVPB Q1H [facility] Rx#: [id number] Sodium Chloride 0.9% 1, 20 20 000 ml @ 20 mls/hr IV . Q24H [facility] Rx#:[id number] Output: Urine 990 450 875 Other: Voiding Method Urinal Urinal - Exam GENERAL DESCRIPTION: Middle-age male lying in bed in no distress RESPIRATORY SYSTEM: Unlabored breathing , decreased breath sounds at bases HEART: S1 S2 regular rate and rhythm , ABDOMEN: Soft , no tenderness EXTREMITIES: No edema feet - Labs CBC & Chem 7: 12/20/23 03:17 12/20/23 03:17 Labs: Abnormal Lab Results - Last 24 Hours (Table) 12/19/23 12/20/23 12/20/23 Range/Units 18:25 03:17 03:17 WBC 10.7 H (3.8-10.6) k/uL RBC 3.20 L (4.30-5.90) m/uL Hgb 10.9 L (13.0-17.5) gm/dL Hct 33.5 L (39.0-53.0) % MCV 104.7 H (80.0-100.0) fL Neutrophils # 8.1 H (1.3-7.7) k/uL BUN (9-20) mg/dL Creatinine 0.46 L (0.66-1.25) mg/dL POC Glucose (mg/dL) 121 H (70-110) mg/dL 12/20/23 Range/Units 03:17 WBC (3.8-10.6) k/uL RBC (4.30-5.90) m/uL Hgb (13.0-17.5) gm/dL Hct (39.0-53.0) % MCV (80.0-100.0) fL Neutrophils # (1.3-7.7) k/uL BUN 3 L (9-20) mg/dL Creatinine 0.50 L (0.66-1.25) mg/dL POC Glucose (mg/dL) (70-110) mg/dL Microbiology - Last 24 Hours (Table) 12/17/23 05:10 Blood Culture - Preliminary Blood 12/17/23 04:50 Blood Culture - Preliminary Blood 12/18/23 16:57 Nasal Screen MRSA/MSSA - Final Nasal Swab Assessment and Plan (1) Aspiration pneumonia Current Visit: Yes Status: Acute Code(s): J69.0 - PNEUMONITIS DUE TO INHALATION OF FOOD AND VOMIT SNOMED Code(s): 843073651 Plan: 1patient presented to hospital with sepsis in this patient who did have fever tachycardia elevated white count concerning for possible aspiration pneumonitis underlying COPY CHASER infection less likely cannot entirely excluded abdomen was soft on clinical examination and no evidence of any cellulitis urine has been negati ve 2-blood and sputum culture currently pending, the patient MRSA nasal screen is negative 3- repeat chest x-ray showing significant worsening on the right side concerning for aspiration pneumonia 4-we will continue patient on Zosyn however discontinue vancomycin to decrease risk of nephrotoxicity and less likelihood of MRSA pneumonia with nasal screen negative Family at the bedside questions answered Dictation was produced using [employer] dictation software. please excuse any grammatical, word or spelling errors. Time with Patient: Less than 30
--- NOTE | 2023-12-21 00:24 | XR ---
EXAM: XR chest 1V portable CLINICAL INDICATION:Male, 63 years old with history of tachypnea, on bipap; [facility] COMPARISON: 12/19/2023 and before TECHNIQUE: Chest single view. FINDINGS: EKG leads and external breathing apparatus projects over the field of view. No indwelling lines can b e seen. Cardiomediastinal silhouette appears stable. Lungs appear grossly unchanged, with similar appearance of the diffuse interstitial and alveolar opac ities throughout the right more than left lung. Left basilar opacity appears similar, likely scarring or atelectasis. No sizable pleural effusion is suggested. No pneumothorax is seen. Osseous structures appear grossly unchanged. IMPRESSION: No significant change from yesterday's exam. Findings as above.
[2023-12-21 01:52] LABS: Glucose,Whole Blood 122 mg/dL (70-110)
[2023-12-21 05:17] LABS: African American GFR (CKD) >90 (>60 ml/min/1.73 sqM); Anion Gap 7 mmol/L; Blood Urea Nitrogen 8 mg/dL (9-20); Calcium 8.6 mg/dL (8.4-10.2); Carbon Dioxide 29 mmol/L (22-30); Chloride 104 mmol/L (98-107); Glucose 130 mg/dL (74-99); Non-African American GFR(CKD) >90 (>60 ml/min/1.73 sqM); Sodium 140 mmol/L (137-145)
[2023-12-21 05:19] LABS: Potassium 4.5 mmol/L (3.5-5.1)
[2023-12-21 06:16] LABS: Glucose,Whole Blood 124 mg/dL (70-110)
[2023-12-21 08:13] LABS: Basophils % (A) 0 %; Eosinophils % (A) 0 %; HGB 11.8 gm/dL (13.0-17.5); Hypochromasia Slight; Lymphocytes # (A) 0.4 k/uL (1.0-4.8); Lymphocytes % (A) 5 %; MCV 106.4 fL (80.0-100.0); Macrocytosis Moderate; Mean Platelet Volume 8.5; Monocytes # (A) 0.4 k/uL (0-1.0); Monocytes % (A) 5 %; Neutrophils # (A) 7.7 k/uL (1.3-7.7); Neutrophils % (A) 89 %; Platelet Count 278 k/uL (150-450); RBC 3.48 m/uL (4.30-5.90); RDW 13.6 % (11.5-15.5); WBC 8.7 k/uL (3.8-10.6)
--- NOTE | 2023-12-21 10:45 | XR ---
EXAMINATION TYPE: XR chest 1V portable DATE OF EXAM: 12/21/2023 5:29 AM CLINICAL INDICATION:Male, 63 years old with history of shortness of breath; [facility] COMPARISON: Chest x-ray from 12/20/2023 TECHNIQUE: XR chest 1V portable Frontal view of the chest. FINDINGS: Lungs/Pleura: Left lower lobe patch of airspace disease is present. The left hemidiaphragm is partial ly obscured by airspace disease. Pulmonary vascularity: Pulmonary venous structures appear engorged, at least mildly Heart/mediastinum: Cardiomediastinal silhouette is unremarkable. Musculoskeletal: No acute osseous pathology. Other findings: None Lines/Tubes: None. IMPRESSION: Left lower lobe pneumonia and generalized pulmonary venous congestion/edema
--- NOTE | 2023-12-21 11:40 | P.PN ---
Subjective Progress Note Date: 12/21/23 63-year-old male with PMH of chronic hypoxic respiratory failure due to pulmonary fibrosis 3.5 L home O2, history of alcohol abuse, anxiety and depression presented to the ED for altered mentation and described as family as shaking all day. In the ED he was noted to be waxing and waning with episodes where he yells out his name and other times where he seems to be confused and shaking. Patient was loaded on Keppra and Ativan for what was thought to be seizure like activity. In the ED BP 85/57, HR 122, Tmax 101.5F, RR 28, 87% on RA. CBC WBC 13.3, Hg 12.8, Hct 38.5, MCV 101. Coag panel within normal limits. ABG pH 7.36, pCO2 44. CMP Na 134, bicarb 21, Cr 0.51, glu 100, Ca 8.1. Lactic acid 5.3. UA negative LE or nitrite. UDS positive for opiate, benzodiazepine and THC. Serum EtOH negative. Flu, RSV, COVID negative. TSH 2.43. Procal 0.09. B12 399. Ammonia 32. CRP 15. Brain CT negative for acute changes. CXR scattered parenchymal opacities favoring pulmonary fibrosis. EKG sinus tachycardia. Patient was started on Vanomcyin and Zosyn and admitted for PNA versus meningitis. Initially plans for LP. Neurology and ID consulted, EEG performed showed background slowing, disorganization, suggestive of mild to moderate encephalopathy. His mentation improved and LP was cancelled due to low probabi lity of meningitis. Keppra was titrated down. His altered mentation was thought to be related to possible EtOH withdrawal, aspiration PNA, and polypharmacy. 12/19 Patient was seen in the ICU. Reports breathing improved. Maintained on Vanomcycin and Zosyn. Last dose for Ativan was yesterday around 4:30PM for EtOH withdrawal. Currently on Keppra 500 IV BID being titrated down by Neurology. CBC WBC 10.7 Hg 10.9 Hct 33.5 MCV 104.7. BMP BUN 3 Cr 0.5. CXR done today shows improved interstitial opacities. 12/20 Patient was seen in the ICU. Reports breathing improved. Currently on 7L HFNC. Maintained on Vanomcycin and Zosyn. Scheduled Xanax added by Pulmonary for better control of anxiety. Keppra discontinued by Neurology. CBC Hg 11.8 Hct 37 MCV 106.4. BMP BUN 8, glu 130. CXR done today shows left lower lobe PNA. General: non toxic, no distress, appears at stated age Derm: warm, dry Head: atraumatic, normocephalic, symmetric Eyes: EOMI, no lid lag, anicteric sclera Mouth: no lip lesion, mucus membranes moist Cardiovascular: S1S2 reg, no murmur Lungs: CTA bilateral, no rhonchi, no rales , no accessory muscle use Ext: no gross muscle atrophy, no edema, no contractures Neuro: no focal neuro deficits Psych: Alert, oriented, appropriate affect Based on my assessment of this patient, this patient meets a high complexity level of care. Patient has an acute diagnosis of acute metabolic encephalopathy that poses a threat to life or bodily function. Acute metabolic encephalopathy: Multifactorial. EtOH abuse. Aspiration PNA. Polypharmacy. Weaned off Keppra. Seziure and Fall precautions. Neurology on board. Sepsis due to aspiration PNA: BCx and Sputum Cx prelim negative. Continue Zosyn 3.375g IV TID (D5) and Vancomycin (D5) dosed per pharmacy. Maintain trough at 15. Telemetry monitoring. NS at 20 cc/hr. ID and Pulmonary on board. EtOH abuse with DTs: Ativan PRN for CIWA protocol. Macrocytic anemia: Likely due to EtOH abuse. Acute on chronic hypoxic respiratory failure: Currently on 7L HFNC. DuoNeb PRN for SOB/wheezing. Pulmonary fibrosis CODE STATUS: FULL CODE DVT Prophylaxis: Heparin SQ. GI Prophylaxis: Protonix IV Designated medical POA if patient is not able to make medical decisions for themselves: I have reviewed the following mobile sales consultant notes: Pulmonary, Neurology, ID note. I have reviewed the results of the following tests: CBC, BMP. I have ordered the following tests: I have discussed the care of this patient with the following independent historian: I have independently interpreted the following test below: CXR. I have discussed the management of this patient with the following physician: Objective - Vital Signs Vital signs: Vital Signs Temp 97.6 F 12/21/23 08:00 Pulse 114 H 12/21/23 11:00 Resp 35 H 12/21/23 11:00 BP 128/102 12/21/23 11:00 Pulse Ox 99 03/27/24 11:00 FiO2 90 12/21/23 04:45 Intake & Output 12/20/23 12/21/23 12/21/23 18:59 06:59 18:59 Intake Total 765 340 220 Output Total 1275 100 350 Balance -510 240 -130 Weight 53 kg Intake: IV 265 340 20 Piperacillin-Tazobactam 3 25 100 .375 gm In Sodium Chloride 0.9% 100 ml @ 25 mls/hr IVPB Q8HR [facility] Rx# :[id number] Sodium Chloride 0.9% 1, 240 240 20 000 ml @ 100 mls/hr IV . Q10H И[facility] Rx#:[id number] Intake, IV Titration 500 Amount Potassium Chloride 10 meq 500 In Water For Injection 1 100ml.bag @ 100 mls/hr IVPB Q1H И[facility] Rx#: [id number] Oral 200 Output: Urine 1275 100 350 Other: # Voids 1 - Labs CBC & Chem 7: 12/21/23 07:52 12/21/23 03:55 Labs: Abnormal Lab Results - Last 24 Hours (Table) 12/20/23 12/21/23 12/21/23 Range/Units 18:37 01:50 03:55 RBC (4.30-5.90) m/uL Hgb (13.0-17.5) gm/dL Hct (39.0-53.0) % MCV (80.0-100.0) fL Lymphocytes # (1.0-4.8) k/uL BUN 8 L (9-20) mg/dL Glucose 130 H (74-99) mg/dL POC Glucose (mg/dL) 138 H 122 H (70-110) mg/dL 12/21/23 12/21/23 Range/Units 06:15 07:52 RBC 3.48 L (4.30-5.90) m/uL Hgb 11.8 L (13.0-17.5) gm/dL Hct 37.0 L (39.0-53.0) % MCV 106.4 H (80.0-100.0) fL Lymphocytes # 0.4 L (1.0-4.8) k/uL BUN (9-20) mg/dL Glucose (74-99) mg/dL POC Glucose (mg/dL) 124 H (70-110) mg/dL Microbiology - Last 24 Hours (Table) 12/18/23 11:09 Gram Stain - Final Sputum Sputum Culture - Final April albicans 12/17/23 05:10 Blood Culture - Preliminary Blood 12/17/23 04:50 Blood Culture - Preliminary Blood 12/18/23 16:57 Nasal Screen MRSA/MSSA - Final Nasal Swab
--- NOTE | 2023-12-21 13:22 | P.PN ---
Subjective Progress Note Date: 12/21/23 Principal diagnosis: Acute metabolic encephalopathy and acute on chronic hypoxic respiratory failure secondary to IPF. This is a 63-year-old male patient was brought into the ICU because of altered mentation. The patient has history of advanced pulmonary fibrosis. The patient has been diagnosed having IPF few years back and the patient has been treated with Ofev and he has severe restrictive lung disease with an FVC of 45% predicted and is also oxygen dependent at 3 L/min nasal cannula. He has history of alcoholism and the patient is chronically debilitated. He drinks alcohol excessively approximately 7 beers a day and he also drinks 1/5 of peppermint schnapps every day. The patient was in the hospital back in October 2023 and at that time the patient sustained acute hypoxic respiratory failure and required intubation mechanical ventilation. Note that during his hospital stay, the patient also sustained some alcohol withdrawal symptoms. He was ultimately stabilized and he was discharged to be readmitted yesterday due to diminished level of consciousness, increased shakiness, confusion, unable to communicate and unable to provide appropriate history. On examination, the patient r shows signs of significant debility, muscle wasting and significant loss of total body muscle mass and malnutrition and deconditioning. The patient was moved to the intensive care unit. Earlier this morning, I had a sitter at the bedside and I was able to briefly communicate with the patient. Nevertheless, he was obviously encephalopathic. He was able to maintain eye contact. He was saying few words and following simple commands and following that and the patient became more agitated he was given Ativan and he became more rested. Obviously, the shakiness is not a sign of seizure at this point in time. He was given Keppra overnight. At time of my evaluation the patient was able to communicate even while he was having those shakes. It is possible that this may be some signs of tremors, delirium tremens this been going on. The viral screen has been negative. Likely his level was at 2.9. The blood gas was done overnight showed a pH of 7.36 with a pCO2 of 44 and pO2 of 61 and this was an FiO2 of 44%. The patient's WBC count at 15.3, it was 4.8 and platelet count of 270. Normal coagulation profile. BUN is at 40 with a creatinine of 0.5 and sodium levels at 134 with a potassium level of 4.8. LFTs are normal. UA is showing possible blood and +1 glucose. No signs of any infection. Alcohol level less than 10. The chest x-ray is consistent with pulmonary fibrosis and the patient has small lung volumes bilaterally and scattered pulmonary opacities favor scarring. An acute superimposed process cannot be completely ruled out. CAT scan of the brain that was done in the emergency showed no acute hemorrhage hydrocephalus or mass effects. At this point in time, the patient is on 5 L of oxygen by nasal cannula with a pulse ox of 100%. Hemodynamically stable. No reported fever. There was a temperature max of 100.2 during this current admission. Currently afebrile. Cardiac rhythm is sinus. On today's evaluation of 12/18/2023, the patient is arousable and awake and he is following some simple commands and answering questions. Overnight, the patient received a total of 4 mg of Ativan and the last dose was given to him at 9:21 P M. He is awake and alert and communicating. Extremely debilitated. Extremely weak. Has a weak cough. Oral mucosa remains dry. He was on oxygen and he was brought up to 13 L and he was weaned down to 10 L and I further cut down the oxygen flow to 5 L this morning. He is on normal saline at rate of 130 cc an hour. A repeat chest x-ray was done today and shows consolidation and chronic fibrotic changes. There is worsening of the consolidation airspace disease on the right compared to yesterday's chest x-ray. Suspected aspiration pneumonia. Based on that, the patient was covered with IV Zosyn and vancomycin. The white cell count today is at 14.1 with a hemoglobin 11.7 and a platelet count of 254. BUN is at 2 with a creatinine of 0.4 and sodium levels at 131 with a potassium level of 3.1. LFTs are within normal limits. The patient is extremely debilitated and weak. May benefit from a Dobbhoff catheter insertion. This may be needed at a later stage IV medication enteral feeding. Hemodynamically stable. Neurology on the case. No evidence of any seizures. He is maintained on Keppra. EEG is to follow. No neck stiffness. No fever at this point in time. Patient was reevaluated today on 12/19/2023, remains in the ICU, he is now on 5 L nasal cannula his mental status has significantly improved, remains on IV fluid at 100 cc/h, remains on Zosyn and vancomycin, overall the patient is steadily improving he feels better, nonetheless patient is chronically ill and his illness is mostly related to his severe interstitial lung disease/pulmonary fibrosis. WBC count today is 11.2 hemoglobin 12.4 basic metabolic profile is normal renal profile is normal. Chest x-ray continues to show bilateral interstitial lung disease, and dilated bowel loops Reevaluate today on 12/20/2023, patient remains in the ICU, now on 10 L nasal cannula, last night he was on BiPAP //40%. Remains marginal at best, patient has shortness of breath with any activity, his IV fluids at KVO he is on vancomycin and Zosyn, patient is quite anxious, and I recommend today Xanax 0.5 mg every 8 hours as needed, and I am also recommending patient to go to airvo as well as continue Solu-Medrol. Patient remains on antibiotics as per infectious disease on the case, I honestly believe the patient has worsening IPF, and prognosis is extremely poor and guarded. Today I had a long discussion with the patient about CODE STATUS, he wants to remain full code, and he was made aware that potentially if he ends up intubated mechanically ventilated the most likely chance that he would end up with a tracheostomy and PEG tube placement, and he clearly stated to me that he would like to see his grandchildren and there is one coming on the way as the patient remains full code at this point Reevaluate today , patient is feeling better today, he is down to 7 L high flow nasal cannula, seems to be less anxious, he is on anxiolytic medications/Xanax, breathing easier, CBC is relatively normal basic metabolic profile is normal blood sugar is normal, patient remains a bit tachypneic and t achycardic. But definitely improved compared to the last couple of days. Objective - Vital Signs Vital signs: Vital Signs Temp 98.2 F 12/21/23 12:00 Pulse 114 H 12/21/23 13:00 Resp 27 H 12/21/23 13:00 BP 132/89 12/21/23 13:00 Pulse Ox 97 12/21/23 13:00 FiO2 90 12/21/23 04:45 Intake & Output 12/20/23 12/21/23 12/21/23 18:59 06:59 18:59 Intake Total 765 340 420 Output Total 1275 100 550 Balance -510 240 -130 Weight 53 kg Intake: IV 265 340 20 Piperacillin-Tazobactam 3 25 100 .375 gm In Sodium Chloride 0.9% 100 ml @ 25 mls/hr IVPB Q8HR [facility] Rx# :[id number] Sodium Chloride 0.9% 1, 240 240 20 000 ml @ 100 mls/hr IV . Q10H [facility] Rx#:[id number] Intake, IV Titration 500 Amount Potassium Chloride 10 meq 500 In Water For Injection 1 100ml.bag @ 100 mls/hr IVPB Q1H [facility] Rx#: [id number] Oral 400 Output: Urine 1275 100 550 Other: Voiding Method Urinal # Voids 1 - Exam General: Reveals 63-year-old white male, on 10 L nasal cannula, debilitated, weak, less respiratory distress today compared to yesterday, seems Colmer. Skin: Skin is warm and dry and no rashes or lesions are noted. Eye: Pupils are equal, round and reactive to light, extra-ocular movements are intact; there is normal conjunctiva bilaterally. Ears, nose, mouth and throat: There are moist mucous membranes and no oral lesions. Neck: The neck is supple, there is no tenderness or JVD. Cardiovascular: Tachycardic, normal S1-S2,. No murmur, rub or gallop is appreciated. Respiratory: Velcro rales noted at the bases bilaterally. Gastrointestinal: Soft, non-distended, non-tender abdomen without masses or organomegaly noted. There is no rebound or guarding present. Bowel sounds are unremarkable. Back: There is no tenderness to palpation in the midline. There is no obvious deformity. Musculoskeletal: Significant muscle wasting is noted. Neurological: Alert oriented x 3 no gross focal deficit Psychiatric: Cooperative, appropriate mood & affect, normal judgment. - Labs CBC & Chem 7: 12/21/23 07:52 12/21/23 03:55 Labs: Abnormal Lab Results - Last 24 Hours (Table) 12/20/23 12/21/23 12/21/23 Range/Units 18:37 01:50 03:55 RBC (4.30-5.90) m/uL Hgb (13.0-17.5) gm/dL Hct (39.0-53.0) % MCV (80.0-100.0) fL Lymphocytes # (1.0-4.8) k/uL BUN 8 L (9-20) mg/dL Glucose 130 H (74-99) mg/dL POC Glucose (mg/dL) 138 H 122 H (70-110) mg/dL 12/21/23 12/21/23 Range/Units 06:15 07:52 RBC 3.48 L (4.30-5.90) m/uL Hgb 11.8 L (13.0-17.5) gm/dL Hct 37.0 L (39.0-53.0) % MCV 106.4 H (80.0-100.0) fL Lymphocytes # 0.4 L (1.0-4.8) k/uL BUN (9-20) mg/dL Glucose (74-99) mg/dL POC Glucose (mg/dL) 124 H (70-110) mg/dL Microbiology - Last 24 Hours (Table) 12/18/23 11:09 Gram Stain - Final Sputum Sputum Culture - Final April albicans 12/17/23 05:10 Blood Culture - Preliminary Blood 12/17/23 04:50 Blood Culture - Preliminary Blood 12/18/23 16:57 Nasal Screen MRSA/MSSA - Final Nasal Swab Assessment and Plan Assessment: Impression Acute toxic metabolic encephalopathy Possible acute alcohol withdrawal is a possibility. Acute on chronic hypoxic respiratory failure Severe protein calorie malnutrition Idiopathic pulmonary fibrosis/interstitial lung disease mostly on 3 L nasal cannula at home Degenerative joint disease Extreme medical debility Recommendation: Continue oxygen and titrate accordingly, today on 7 L nasal cannula Continue Xanax every 8 hours Continue hydration Continue empiric Zosyn, Continue steroids. Continue GI DVT prophylaxis CODE STATUS remains full Continue to monitor in the ICU for now. Will continue to follow Time with Patient: Less than 30
--- NOTE | 2023-12-21 14:44 | P.PN ---
Subjective Progress Note Date: 12/21/23 I am following-up with patient and he states he is doing excellent. The family feels he is improving and doing better overall. No further seizure-like activities. Objective - Vital Signs Vital signs: Vital Signs Temp 98.2 F 12/21/23 12:00 Pulse 114 H 12/21/23 13:00 Resp 27 H 12/21/23 13:00 BP 132/89 12/21/23 13:00 Pulse Ox 97 12/21/23 13:00 FiO2 90 12/21/23 04:45 Intake & Output 12/20/23 12/21/23 12/21/23 18:59 06:59 18:59 Intake Total 765 340 420 Output Total 1275 100 550 Balance -510 240 -130 Weight 53 kg Intake: IV 265 340 20 Piperacillin-Tazobactam 3 25 100 .375 gm In Sodium Chloride 0.9% 100 ml @ 25 mls/hr IVPB Q8HR [facility] Rx# :[id number] Sodium Chloride 0.9% 1, 240 240 20 000 ml @ 100 mls/hr IV . Q10H [facility] Rx#:[id number] Intake, IV Titration 500 Amount Potassium Chloride 10 meq 500 In Water For Injection 1 100ml.bag @ 100 mls/hr IVPB Q1H [facility] Rx#: [id number] Oral 400 Output: Urine 1275 100 550 Other: Voiding Method Urinal # Voids 1 - Exam General: Sitting in a recliner chair and is not in acute distress. Neuro: The patient is awake alert oriented to self place and time. The patient's followed simple commands. No aphasia and no neglect. Pupils are round equal reactive to light. Visual urbano are full to confrontation. Extraocular movement is intact and no nystagmus. No facial weakness. No dysarthria Motor is lifting all extremities above gravity and appears equally. - Labs CBC & Chem 7: 12/21/23 07:52 12/21/23 03:55 Labs: Abnormal Lab Results - Last 24 Hours (Table) 12/20/23 12/21/23 12/21/23 Range/Units 18:37 01:50 03:55 RBC (4.30-5.90) m/uL Hgb (13.0-17.5) gm/dL Hct (39.0-53.0) % MCV (80.0-100.0) fL Lymphocytes # (1.0-4.8) k/uL BUN 8 L (9-20) mg/dL Glucose 130 H (74-99) mg/dL POC Glucose (mg/dL) 138 H 122 H (70-110) mg/dL 12/21/23 12/21/23 Range/Units 06:15 07:52 RBC 3.48 L (4.30-5.90) m/uL Hgb 11.8 L (13.0-17.5) gm/dL Hct 37.0 L (39.0-53.0) % MCV 106.4 H (80.0-100.0) fL Lymphocytes # 0.4 L (1.0-4.8) k/uL BUN (9-20) mg/dL Glucose (74-99) mg/dL POC Glucose (mg/dL) 124 H (70-110) mg/dL Microbiology - Last 24 Hours (Table) 12/18/23 11:09 Gram Stain - Final Sputum Sputum Culture - Final April albicans 12/17/23 05:10 Blood Culture - Preliminary Blood 12/17/23 04:50 Blood Culture - Preliminary Blood 12/18/23 16:57 Nasal Screen MRSA/MSSA - Final Nasal Swab Assessment and Plan Assessment: * Altered mental status, likely due to toxic metabolic encephalopathy. Possibl e related to pneumonia. Patient's has minimal elevated ammonia which resolved and possible hepatic encephalopathy. Alcohol withdrawal less likely, as patient has been sober since end of September 2023---mentation resolved. * Reported Seizure-like activity: It was Suspect related to acute delirium paresh gisel withdrawal. Seizure disorder appears less likely. * Pulmonary fibrosis * Acute and chronic respiratory failure with hypoxia * Pulmonary hypertension * Alcohol dependence with withdrawal, sober since end of September 2023. * Elevated LFTs in past which has resolved * Mildly elevated ammonia 32 on arrival, now normal. * Thrombocytopenia * Generalized anxiety disorder * Depression * Generalized muscle weakness * Marijuana use Plan: * EEG was abnormal due to background slowing, disorganization, suggestive of mild to moderate encephalopathy. No focal, lateralized or epileptiform activity was seen. * Per Dr. Schrader, as mentation has normalized, and EEG did not reveal any epileptiform activity, we was titrating Keppra down until stopped. The medication has been stopped since yesterday. * Infectious disease also on board. Patient currently on Zosyn 3.375 g every 8 hours, and vancomycin 1 g every 12 hours. * Patient also has history of alcoholism, currently on CIWA protocol. Continue thiamine, folate. Patient's B12 399 on 12/17/2023. Patient will be started on B12 and folate. * Other medical management as per IM and pulmonary medicine. * Upon discharge recommend the patient to follow-up with a neurologist in outpatient within 2-3 weeks. The plan is discussed with patient and who is at bedside. There is no further neurological work-up. Will sign off. Please reconsult if needed. Time with Patient: Less than 30
--- NOTE | 2023-12-21 17:32 | P.PN ---
Subjective Progress Note Date: 12/21/23 Principal diagnosis: Reason for follow-up is likely aspiration pneumonia Patient is a 63-year-old male with a past medical history significant for EtOH abuse DTs pulmonary fibrosis on home O2 recent admission to the hospital treated for DTs patient has been brought back to the hospital for evaluation of altered mental status and there was concern for possible aspirat ion pneumonia in this patient who did have a fever on presentation to the hospital. On today's visit that is 12/21/2023, the patient continues to be afebrile, the patient is 7 L nasal cannula oxygen and breathing comfortably, the Pt denies having any chest pain or worsening cough, the patient denies having any abdominal pain no vomiting or any diarrhea, feeling better today. Patient white count normal at 8.7 creatinine is 0.75 sputum with April albicans Objective - Vital Signs Vital signs: Vital Signs Temp 98.2 F 12/21/23 12:00 Pulse 114 H 12/21/23 13:00 Resp 27 H 12/21/23 13:00 BP 132/89 12/21/23 13:00 Pulse Ox 97 12/21/23 13:00 FiO2 90 12/21/23 04:45 Intake & Output 12/20/23 12/21/23 12/21/23 18:59 06:59 18:59 Intake Total 765 340 420 Output Total 1275 100 550 Balance -510 240 -130 Weight 53 kg Intake: IV 265 340 20 Piperacillin-Tazobactam 3 25 100 .375 gm In Sodium Chloride 0.9% 100 ml @ 25 mls/hr IVPB Q8HR [facility] Rx# :[id number] Sodium Chloride 0.9% 1, 240 240 20 000 ml @ 100 mls/hr IV . Q10H [facility] Rx#:[id number] Intake, IV Titration 500 Amount Potassium Chloride 10 meq 500 In Water For Injection 1 100ml.bag @ 100 mls/hr IVPB Q1H [facility] Rx#: [id number] Oral 400 Output: Urine 1275 100 550 Other: Voiding Method Urinal # Voids 1 - Exam GENERAL DESCRIPTION: Middle-age male lying in bed in no distress RESPIRATORY SYSTEM: Unlabored breathing , decreased breath sounds at bases HEART: S1 S2 regular rate and rhythm , ABDOMEN: Soft , no tenderness EXTREMITIES: No edema feet - Labs CBC & Chem 7: 12/21/23 07:52 12/21/23 03:55 Labs: Abnormal Lab Results - Last 24 Hours (Table) 12/20/23 12/21/23 12/21/23 Range/Units 18:37 01:50 03:55 RBC (4.30-5.90) m/uL Hgb (13.0-17.5) gm/dL Hct (39.0-53.0) % MCV (80.0-100.0) fL Lymphocytes # (1.0-4.8) k/uL BUN 8 L (9-20) mg/dL Glucose 130 H (74-99) mg/dL POC Glucose (mg/dL) 138 H 122 H (70-110) mg/dL 12/21/23 12/21/23 Range/Units 06:15 07:52 RBC 3.48 L (4.30-5.90) m/uL Hgb 11.8 L (13.0-17.5) gm/dL Hct 37.0 L (39.0-53.0) % MCV 106.4 H (80.0-100.0) fL Lymphocytes # 0.4 L (1.0-4.8) k/uL BUN (9-20) mg/dL Glucose (74-99) mg/dL POC Glucose (mg/dL) 124 H (70-110) mg/dL Microbiology - Last 24 Hours (Table) 12/18/23 11:09 Gram Stain - Final Sputum Sputum Culture - Final April albicans 12/17/23 05:10 Blood Culture - Preliminary Blood 12/17/23 04:50 Blood Culture - Preliminary Blood 12/18/23 16:57 Nasal Screen MRSA/MSSA - Final Nasal Swab Assessment and Plan (1) Aspiration pneumonia Current Visit: Yes Status: Acute Code(s): J69.0 - PNEUMONITIS DUE TO INHALATION OF FOOD AND VOMIT SNOMED Code(s): 771992500 Plan: 1patient presented to hospital with sepsis in this patient who did have fever tachycardia elevated white count concerning for possible aspiration pneumonitis underlying [employer] infection less likely cannot entirely excluded abdomen was soft on clinical examination and no evidence of any cellulitis urine has been neg ative 2-blood and sputum culture currently pending, the patient MRSA nasal screen is negative 3- repeat chest x-ray showing significant worsening on the right side concerning for aspiration pneumonia 4-patient remains to be afebrile patient white count has normalized sputum has been negative for any resistant pathogen, and April more likely colonizer 5-patient is currently being treated with Zosyn and monitor clinical course closely Family at the bedside questions answered Dictation was produced using [employer] dictation software. please excuse any grammatical, word or spelling errors. Time with Patient: Less than 30
[2023-12-21 19:29] LABS: Glucose,Whole Blood 168 mg/dL (70-110)
[2023-12-21] MEDS: FUROSEMIDE 10 MG/ML 4 ML VIAL IV STA (23:36)
[2023-12-22 00:28] LABS: Glucose,Whole Blood 138 mg/dL (70-110)
[2023-12-22 04:59] LABS: Basophils % (A) 0 %; Eosinophils % (A) 0 %; HGB 12.1 gm/dL (13.0-17.5); Lymphocytes # (A) 0.8 k/uL (1.0-4.8); Lymphocytes % (A) 5 %; MCH 33.5 pg (25.0-35.0); MCHC 32.8 g/dL (31.0-37.0); MCV 102.1 fL (80.0-100.0); Macrocytosis Slight; Mean Platelet Volume 8.6; Monocytes # (A) 0.8 k/uL (0-1.0); Monocytes % (A) 5 %; Neutrophils # (A) 13.6 k/uL (1.3-7.7); Neutrophils % (A) 88 %; Platelet Count 305 k/uL (150-450); RBC 3.63 m/uL (4.30-5.90); RDW 13.7 % (11.5-15.5); WBC 15.5 k/uL (3.8-10.6)
[2023-12-22 06:19] LABS: Glucose,Whole Blood 135 mg/dL (70-110)
[2023-12-22 06:29] LABS: African American GFR (CKD) >90 (>60 ml/min/1.73 sqM); Anion Gap 11 mmol/L; Blood Urea Nitrogen 12 mg/dL (9-20); Calcium 9.2 mg/dL (8.4-10.2); Carbon Dioxide 37 mmol/L (22-30); Chloride 93 mmol/L (98-107); Glucose 136 mg/dL (74-99); Non-African American GFR(CKD) >90 (>60 ml/min/1.73 sqM); Potassium 3.7 mmol/L (3.5-5.1); Sodium 141 mmol/L (137-145)
[2023-12-22] MEDS: POTASSIUM CHLORIDE ER 20 MEQ TAB.ER PO SCH ×2 (06:41→12:54)
[2023-12-22 12:58] LABS: Glucose,Whole Blood 298 mg/dL (70-110)
--- NOTE | 2023-12-22 13:36 | P.PN ---
Subjective Progress Note Date: 12/22/23 Hospital Course: 63-year-old male with PMH of chronic hypoxic respiratory failure due to pulmon raymond fibrosis 3.5 L home O2, history of alcohol abuse, anxiety and depression presented to the ED for altered mentation and described as family as shaking all day. In the ED he was noted to be waxing and waning with episodes where he yells out his name and other times where he seems to be confused and shaking. Patient was loaded on Keppra and Ativan for what was thought to be seizure like activity. In the ED BP 85/57, HR 122, Tmax 101.5F, RR 28, 87% on RA. CBC WBC 13.3, Hg 12.8, Hct 38.5, MCV 101. Coag panel within normal limits. ABG pH 7.36, pCO2 44. CMP Na 134, bicarb 21, Cr 0.51, glu 100, Ca 8.1. Lactic acid 5.3. UA negative LE or nitrite. UDS positive for opiate, benzodiazepine and THC. Serum EtOH negative. Flu, RSV, COVID negative. TSH 2.43. Procal 0.09. B12 399. Ammonia 32. CRP 15. Brain CT negative for acute changes. CXR scattered parenchymal opacities favoring pulmonary fibrosis. EKG sinus tachycardia. Patient was started on Vanomcyin and Zosyn and admitted for PNA versus men ingitis. Initially plans for LP. Neurology and ID consulted, EEG performed showed background slowing, disorganization, suggestive of mild to moderate encephalopathy. His mentation improved and LP was cancelled due to low probability of meningitis. Keppra was titrated down. His altered mentation was thought to be related to possible EtOH withdrawal, aspiration PNA, and polypharmacy. 12/19 Patient was seen in the ICU. Reports breathing improved. Maintained on Vanomcycin and Zosyn. Last dose for Ativan was yesterday around 4:30PM for EtOH withdrawal. Currently on Keppra 500 IV BID being titrated down by Neurology. CBC WBC 10.7 Hg 10.9 Hct 33.5 MCV 104.7. BMP BUN 3 Cr 0.5. CXR done today shows improved interstitial opacities. 12/20 Patient was seen in the ICU. Reports breathing improved. Currently on 7L HFNC. Maintained on Vanomcycin and Zosyn. Scheduled Xanax added by Pulmonary for better control of anxiety. Keppra discontinued by Neurology. CBC Hg 11.8 Hct 37 MCV 106.4. BMP BUN 8, glu 130. CXR done today shows left lower lobe PNA. Subjective: Patient seen and examined at bedside. No acute events overnight. Respiratory function improving. Pertinent positives and negatives as discussed above, a complete review of systems was performed and all other systems are negative. Vitals Signs Reviewed. General: Nontoxic, no distress, appears at stated age Derm: Warm, dry Head: Atraumatic, normocephalic, symmetric Eyes: EOMI, no lid lag, anicteric sclera Mouth: No lip lesion, mucus membranes moist Cardiovascular: S1S2 reg, no murmur Lungs: Bilateral Rales, no accessory muscle use, supplemental oxygen Abdominal: Soft, nontender to palpation, no guarding, no appreciable orga nomegaly Ext: No gross muscle atrophy, no edema, no contractures Neuro: CN II-XI grossly intact, no focal neuro deficits Psych: Alert, oriented, appropriate affect Data Reviewed Today: Pertinent Labs: WBC 15.5, hemoglobin 12.1, bicarb 37, creatinine 0.79 blood sugars range between [id number] Imaging: Chest x-ray independently interpreted, shows bilateral interstitial opacities similar to prior Assessment and Plan: Acute metabolic encephalopathy History of alcohol dependence Acute on chronic hypoxic respiratory failure Interstitial lung disease Sepsis secondary to aspiration pneumonia History of anxiety Mental status improved Initially there was concern for seizure disorder, currently seizure-free, not on any antiepileptics. Continue IV Solu-Medrol 60 every 6 hours, monitor blood sugars, continue to wean oxygen Also on DuoNeb every 4 hours as needed Continue amiodarone IV Zosyn 3.375 g every 8 hours, sputum cultures growing normal respiratory dali, MRSA screen negative Neurology, pulmonology, infectious disease following On thiamine 100 mg daily oral Continue Xanax 0.5 3 times daily, monitor for sedation DVT ppx: Subcu heparin Code status: Full code Anticipated discharge place: Pending clinical course Anticipated discharge time: Pending clinical course Objective - Vital Signs Vital signs: Vital Signs Temp 98.5 F 12/22/23 08:00 Pulse 120 H 12/22/23 11:00 Resp 28 H 12/22/23 11:00 BP 136/99 12/22/23 11:00 Pulse Ox 100 12/22/23 11:00 FiO2 40 12/22/23 08:00 Intake & Output 12/21/23 12/22/23 12/22/23 18:59 06:59 18:59 Intake Total 620 320 160 Output Total 651 2260 250 Balance - Weight 51.8 kg Intake: IV 20 320 160 Piperacillin-Tazobactam 3 100 100 .375 gm In Sodium Chloride 0.9% 100 ml @ 25 mls/hr IVPB Q8HR И[facility] Rx# :[id number] Sodium Chloride 0.9% 1, 20 000 ml @ 100 mls/hr IV . Q10H ИРИНА Rx#:[id number] Sodium Chloride 0.9% 1, 220 60 000 ml @ 20 mls/hr IV . Q24H ИРИНА Rx#:[id number] Oral 600 Output: Urine 650 2260 250 Stool 1 Other: Voiding Method Urinal Urinal Urinal # Voids 1 1 # Bowel Movements 1 - Labs CBC & Chem 7: 12/22/23 04:20 12/22/23 11:07 Labs: Abnormal Lab Results - Last 24 Hours (Table) 12/21/23 12/22/23 12/22/23 Range/Units 19:28 00:27 04:20 WBC 15.5 H (3.8-10.6) k/uL RBC 3.63 L (4.30-5.90) m/uL Hgb 12.1 L (13.0-17.5) gm/dL Hct 37.0 L (39.0-53.0) % MCV 102.1 H (80.0-100.0) fL Neutrophils # 13.6 H (1.3-7.7) k/uL Lymphocytes # 0.8 L (1.0-4.8) k/uL Potassium (3.5-5.1) mmol/L Chloride (98-107) mmol/L Carbon Dioxide (22-30) mmol/L Glucose (74-99) mg/dL POC Glucose (mg/dL) 168 H 138 H (70-110) mg/dL 12/22/23 12/22/23 12/22/23 Range/Units 04:20 06:17 11:07 WBC (3.8-10.6) k/uL RBC (4.30-5.90) m/uL Hgb (13.0-17.5) gm/dL Hct (39.0-53.0) % MCV (80.0-100.0) fL Neutrophils # (1.3-7.7) k/uL Lymphocytes # (1.0-4.8) k/uL Potassium 3.0 L (3.5-5.1) mmol/L Chloride 93 L (98-107) mmol/L Carbon Dioxide 37 H (22-30) mmol/L Glucose 136 H (74-99) mg/dL POC Glucose (mg/dL) 135 H (70-110) mg/dL 12/22/23 Range/Units 12:56 WBC (3.8-10.6) k/uL RBC (4.30-5.90) m/uL Hgb (13.0-17.5) gm/dL Hct (39.0-53.0) % MCV (80.0-100.0) fL Neutrophils # (1.3-7.7) k/uL Lymphocytes # (1.0-4.8) k/uL Potassium (3.5-5.1) mmol/L Chloride (98-107) mmol/L Carbon Dioxide (22-30) mmol/L Glucose (74-99) mg/dL POC Glucose (mg/dL) 298 H (70-110) mg/dL Microbiology - Last 24 Hours (Table) 12/17/23 05:10 Blood Culture - Final Blood 12/17/23 04:50 Blood Culture - Final Blood 12/18/23 11:09 Gram Stain - Final Sputum Sputum Culture - Final April albicans
--- NOTE | 2023-12-22 14:06 | P.PN ---
Subjective Progress Note Date: 12/22/23 Principal diagnosis: Acute metabolic encephalopathy and acute on chronic hypoxic respiratory failure secondary to IPF. This is a 63-year-old male patient was brought into the ICU because of altered mentation. The patient has history of advanced pulmonary fibrosis. The patient has been diagnosed having IPF few years back and the patient has been treated with Ofev and he has severe restrictive lung disease with an FVC of 45% predicted and is also oxygen dependent at 3 L/min nasal cannula. He has history of alcoholism and the patient is chronically debilitated. He drinks alcohol excessively approximately 7 beers a day and he also drinks 1/5 of peppermint schnapps every day. The patient was in the hospital back in October 2023 and at that time the patient sustained acute hypoxic respiratory failure and required intubation mechanical ventilation. Note that during his hospital stay, the patient also sustained some alcohol withdrawal symptoms. He was ultimately stabilized and he was discharged to be readmitted yesterday due to diminished level of consciousness, increased shakiness, confusion, unable to communicate and unable to provide appropriate history. On examination, the patient r shows signs of significant debility, muscle wasting and significant loss of total body muscle mass and malnutrition and deconditioning. The patient was moved to the intensive care unit. Earlier this morning, I had a sitter at the bedside and I was able to briefly communicate with the patient. Nevertheless, he was obviously encephalopathic. He was able to maintain eye contact. He was saying few words and following simple commands and following that and the patient became more agitated he was given Ativan and he became more rested. Obviously, the shakiness is not a sign of seizure at this point in time. He was given Keppra overnight. At time of my evaluation the patient was able to communicate even while he was having those shakes. It is possible that this may be some signs of tremors, delirium tremens this been going on. The viral screen has been negative. Likely his level was at 2.9. The blood gas was done overnight showed a pH of 7.36 with a pCO2 of 44 and pO2 of 61 and this was an FiO2 of 44%. The patient's WBC count at 15.3, it was 4.8 and platelet count of 270. Normal coagulation profile. BUN is at 40 with a creatinine of 0.5 and sodium levels at 134 with a potassium level of 4.8. LFTs are normal. UA is showing possible blood and +1 glucose. No signs of any infection. Alcohol level less than 10. The chest x-ray is consistent with pulmonary fibrosis and the patient has small lung volumes bilaterally and scattered pulmonary opacities favor scarring. An acute superimposed process cannot be completely ruled out. CAT scan of the brain that was done in the emergency showed no acute hemorrhage hydrocephalus or mass effects. At this point in time, the patient is on 5 L of oxygen by nasal cannula with a pulse ox of 100%. Hemodynamically stable. No reported fever. There was a temperature max of 100.2 during this current admission. Currently afebrile. Cardiac rhythm is sinus. On today's evaluation of 12/18/2023, the patient is arousable and awake and he is following some simple commands and answering questions. Overnight, the patient received a total of 4 mg of Ativan and the last dose was given to him at 9:21 P M. He is awake and alert and communicating. Extremely debilitated. Extremely weak. Has a weak cough. Oral mucosa remains dry. He was on oxygen and he was brought up to 13 L and he was weaned down to 10 L and I further cut down the oxygen flow to 5 L this morning. He is on normal saline at rate of 130 cc an hour. A repeat chest x-ray was done today and shows consolidation and chronic fibrotic changes. There is worsening of the consolidation airspace disease on the right compared to yesterday's chest x-ray. Suspected aspiration pneumonia. Based on that, the patient was covered with IV Zosyn and vancomycin. The white cell count today is at 14.1 with a hemoglobin 11.7 and a platelet count of 254. BUN is at 2 with a creatinine of 0.4 and sodium levels at 131 with a potassium level of 3.1. LFTs are within normal limits. The patient is extremely debilitated and weak. May benefit from a Dobbhoff catheter insertion. This may be needed at a later stage IV medication enteral feeding. Hemodynamically stable. Neurology on the case. No evidence of any seizures. He is maintained on Keppra. EEG is to follow. No neck stiffness. No fever at this point in time. Patient was reevaluated today on 12/19/2023, remains in the ICU, he is now on 5 L nasal cannula his mental status has significantly improved, remains on IV fluid at 100 cc/h, remains on Zosyn and vancomycin, overall the patient is steadily improving he feels better, nonetheless patient is chronically ill and his illness is mostly related to his severe interstitial lung disease/pulmonary fibrosis. WBC count today is 11.2 hemoglobin 12.4 basic metabolic profile is normal renal profile is normal. Chest x-ray continues to show bilateral interstitial lung disease, and dilated bowel loops Reevaluate today on 12/20/2023, patient remains in the ICU, now on 10 L nasal cannula, last night he was on BiPAP 12/6/40%. Remains marginal at best, patient has shortness of breath with any activity, his IV fluids at KVO he is on vancomycin and Zosyn, patient is quite anxious, and I recommend today Xanax 0.5 mg every 8 hours as needed, and I am also recommending patient to go to airvo as well as continue Solu-Medrol. Patient remains on antibiotics as per infectious disease on the case, I honestly believe the patient has worsening IPF, and prognosis is extremely poor and guarded. Today I had a long discussion with the patient about CODE STATUS, he wants to remain full code, and he was made aware that potentially if he ends up intubated mechanically ventilated the most likely chance that he would end up with a tracheostomy and PEG tube placement, and he clearly stated to me that he would like to see his grandchildren and there is one coming on the way as the patient remains full code at this point Reevaluate today on12/21/23, patient is feeling better today, he is down to 7 L high flow nasal cannula, seems to be less anxious, he is on anxiolytic medications/Xanax, breathing easier, CBC is relatively normal basic metabolic profile is normal blood sugar is normal, patient remains a bit tachypneic and tachycardic. But definitely improved compared to the last couple of days. Reevaluated today on 12/22/2023, patient is basically about the same as yesterday, remains tachypneic and tachycardic. Patient is still on steroids, antibiotics, bronchodilators, and he is still on 7 L high flow nasal cannula. Last night had to be placed on BiPAP 12/6/40% sitting at bedside. WBC is 15.5 hemoglobin 12.1 basic metabolic profile is normal bicarb 37 renal profile is normal, chest x-ray continues to show bilateral interstitial infiltrates. Mostly at the bases and peripherally Objective - Vital Signs Vital signs: Vital Signs Temp 98.5 F 12/22/23 08:00 Pulse 120 H 12/22/23 11:00 Resp 28 H 12/22/23 11:00 BP 136/99 12/22/23 11:00 Pulse Ox 100 12/22/23 11:00 FiO2 40 12/22/23 08:00 Intake & Output 12/21/23 12/22/23 12/22/23 18:59 06:59 18:59 Intake Total 620 320 160 Output Total 651 2260 250 Balance - -[id number] Weight 51.8 kg Intake: IV 20 320 160 Piperacillin-Tazobactam 3 100 100 .375 gm In Sodium Chloride 0.9% 100 ml @ 25 mls/hr IVPB Q8HR [facility] Rx# :[id number] Sodium Chloride 0.9% 1, 20 000 ml @ 100 mls/hr IV . Q10H ИР[facility] Rx#:[id number] Sodium Chloride 0.9% 1, 220 60 000 ml @ 20 mls/hr IV . Q24H ИРИНА Rx#:[id number] Oral 600 Output: Urine 650 2260 250 Stool 1 Other: Voiding Method Urinal Urinal Urinal # Voids 1 1 # Bowel Movements 1 - Exam General: Reveals 63-year-old white male, on 7 L nasal cannula seems calm, not in distress Skin: Skin is warm and dry and no rashes or lesions are noted. Eye: Pupils are equal, round and reactive to light, extra-ocular movements are intact; there is normal conjunctiva bilaterally. Ears, nose, mouth and throat: There are moist mucous membranes and no oral lesions. Neck: The neck is supple, there is no tenderness or JVD. Cardiovascular: Tachycardic, normal S1-S2,. No murmur, rub or gallop is appreciated. Respiratory: Velcro rales noted at the bases bilaterally. Gastrointestinal: Soft, non-distended, non-tender abdomen without masses or organomegaly noted. There is no rebound or guarding present. Bowel sounds are unremarkable. Back: There is no tenderness to palpation in the midline. There is no obvious deformity. Musculoskeletal: Significant muscle wasting is noted. Neurological: Alert oriented x 3 no gross focal deficit Psychiatric: Cooperative, appropriate mood & affect, normal judgment. - Labs CBC & Chem 7: 12/22/23 04:20 12/22/23 11:07 Labs: Abnormal Lab Results - Last 24 Hours (Table) 12/21/23 12/22/23 12/22/23 Range/Units 19:28 00:27 04:20 WBC 15.5 H (3.8-10.6) k/uL RBC 3.63 L (4.30-5.90) m/uL Hgb 12.1 L (13.0-17.5) gm/dL Hct 37.0 L (39.0-53.0) % MCV 102.1 H (80.0-100.0) fL Neutrophils # 13.6 H (1.3-7.7) k/uL Lymphocytes # 0.8 L (1.0-4.8) k/uL Potassium (3.5-5.1) mmol/L Chloride (98-107) mmol/L Carbon Dioxide (22-30) mmol/L Glucose (74-99) mg/dL POC Glucose (mg/dL) 168 H 138 H (70-110) mg/dL 12/22/23 12/22/23 12/22/23 Range/Units 04:20 06:17 11:07 WBC (3.8-10.6) k/uL RBC (4.30-5.90) m/uL Hgb (13.0-17.5) gm/dL Hct (39.0-53.0) % MCV (80.0-100.0) fL Neutrophils # (1.3-7.7) k/uL Lymphocytes # (1.0-4.8) k/uL Potassium 3.0 L (3.5-5.1) mmol/L Chloride 93 L (98-107) mmol/L Carbon Dioxide 37 H (22-30) mmol/L Glucose 136 H (74-99) mg/dL POC Glucose (mg/dL) 135 H (70-110) mg/dL 12/22/23 Range/Units 12:56 WBC (3.8-10.6) k/uL RBC (4.30-5.90) m/uL Hgb (13.0-17.5) gm/dL Hct (39.0-53.0) % MCV (80.0-100.0) fL Neutrophils # (1.3-7.7) k/uL Lymphocytes # (1.0-4.8) k/uL Potassium (3.5-5.1) mmol/L Chloride (98-107) mmol/L Carbon Dioxide (22-30) mmol/L Glucose (74-99) mg/dL POC Glucose (mg/dL) 298 H (70-110) mg/dL Microbiology - Last 24 Hours (Table) 12/17/23 05:10 Blood Culture - Final Blood 12/17/23 04:50 Blood Culture - Final Blood Assessment and Plan Assessment: Impression Acute toxic metabolic encephalopathy Possible acute alcohol withdrawal is a possibility. Acute on chronic hypoxic respiratory failure Severe protein calorie malnutrition Idiopathic pulmonary fibrosis/interstitial lung disease mostly on 3 L nasal cannula at home Degenerative joint disease Extreme medical debility Recommendation: Continue oxygen and titrate accordingly, presently on 7 L Continue Xanax every 8 hours Continue hydration Continue empiric Zosyn, Continue steroids. Continue GI DVT prophylaxis CODE STATUS remains full Continue to monitor in the ICU for now. Will continue to follow Time with Patient: Less than 30
--- NOTE | 2023-12-22 15:22 | P.PN ---
Subjective Progress Note Date: 12/22/23 Principal diagnosis: Reason for follow-up is likely aspiration pneumonia Patient is a 63-year-old male with a past medical history significant for EtOH abuse DTs pulmonary fibrosis on home O2 recent admission to the hospital treated for DTs patient has been brought back to the hospital for evaluation of altered mental status and there was concern for possible aspirat ion pneumonia in this patient who did have a fever on presentation to the hospital. On today's visit that is 12/22/2023, Patient is afebrile patient is currently on 3 L nasal cannula oxygen and denies having any shortness of breath, the patient denies any chest pain cough has decreased intensity the patient denies any nausea vomiting did not have any abdominal pain and no diarrhea. Patient white count is 15.5 creatinine 0.79 sputum with April Objective - Vital Signs Vital signs: Vital Signs Temp 98.5 F 12/22/23 08:00 Pulse 106 H 12/22/23 15:00 Resp 27 H 12/22/23 15:00 BP 138/96 12/22/23 15:00 Pulse Ox 97 12/22/23 15:00 FiO2 40 12/22/23 08:00 Intake & Output 12/21/23 12/22/23 12/22/23 18:59 06:59 18:59 Intake Total 620 320 200 Output Total 651 2260 250 Balance -50 Weight 51.8 kg 51.8 kg Intake: IV 20 320 200 Piperacillin-Tazobactam 3 100 100 .375 gm In Sodium Chloride 0.9% 100 ml @ 25 mls/hr IVPB Q8HR [facility] Rx# :[id number] Sodium Chloride 0.9% 1, 20 000 ml @ 100 mls/hr IV . Q10H ИР[facility] Rx#:[id number] Sodium Chloride 0.9% 1, 220 100 000 ml @ 20 mls/hr IV . Q24H ИР[facility]НА Rx#:[id number] Oral 600 Output: Urine 650 2260 250 Stool 1 Other: Voiding Method Urinal Urinal Urinal # Voids 1 1 # Bowel Movements 1 - Exam GENERAL DESCRIPTION: Middle-age male lying in bed in no distress RESPIRATORY SYSTEM: Unlabored breathing , decreased breath sounds at bases HEART: S1 S2 regular rate and rhythm , ABDOMEN: Soft , no tenderness EXTREMITIES: No edema feet - Labs CBC & Chem 7: 12/22/23 04:20 12/22/23 11:07 Labs: Abnormal Lab Results - Last 24 Hours (Table) 12/21/23 12/22/23 12/22/23 Range/Units 19:28 00:27 04:20 WBC 15.5 H (3.8-10.6) k/uL RBC 3.63 L (4.30-5.90) m/uL Hgb 12.1 L (13.0-17.5) gm/dL Hct 37.0 L (39.0-53.0) % MCV 102.1 H (80.0-100.0) fL Neutrophils # 13.6 H (1.3-7.7) k/uL Lymphocytes # 0.8 L (1.0-4.8) k/uL Potassium (3.5-5.1) mmol/L Chloride (98-107) mmol/L Carbon Dioxide (22-30) mmol/L Glucose (74-99) mg/dL POC Glucose (mg/dL) 168 H 138 H (70-110) mg/dL 12/22/23 12/22/23 12/22/23 Range/Units 04:20 06:17 11:07 WBC (3.8-10.6) k/uL RBC (4.30-5.90) m/uL Hgb (13.0-17.5) gm/dL Hct (39.0-53.0) % MCV (80.0-100.0) fL Neutrophils # (1.3-7.7) k/uL Lymphocytes # (1.0-4.8) k/uL Potassium 3.0 L (3.5-5.1) mmol/L Chloride 93 L (98-107) mmol/L Carbon Dioxide 37 H (22-30) mmol/L Glucose 136 H (74-99) mg/dL POC Glucose (mg/dL) 135 H (70-110) mg/dL 12/22/23 Range/Units 12:56 WBC (3.8-10.6) k/uL RBC (4.30-5.90) m/uL Hgb (13.0-17.5) gm/dL Hct (39.0-53.0) % MCV (80.0-100.0) fL Neutrophils # (1.3-7.7) k/uL Lymphocytes # (1.0-4.8) k/uL Potassium (3.5-5.1) mmol/L Chloride (98-107) mmol/L Carbon Dioxide (22-30) mmol/L Glucose (74-99) mg/dL POC Glucose (mg/dL) 298 H (70-110) mg/dL Microbiology - Last 24 Hours (Table) 12/17/23 05:10 Blood Culture - Final Blood 12/17/23 04:50 Blood Culture - Final Blood Assessment and Plan (1) Aspiration pneumonia Current Visit: Yes Status: Acute Code(s): J69.0 - PNEUMONITIS DUE TO INHALA TION OF FOOD AND VOMIT SNOMED Code(s): 791723848 (2) Leukocytosis Current Visit: Yes Status: Acute Code(s): D72.829 - ELEVATED WHITE BLOOD CELL COUNT, UNSPECIFIED SNOMED Code(s): 904729318 (3) Thrush Current Visit: Yes Status: Acute Code(s): B37.0 - CANDIDAL STOMATITIS SNOMED Code(s): 89978926 Plan: 1patient presented to hospital with sepsis in this patient who did have fever tachycardia elevated white count concerning for possible aspiration pneumonitis underlying [employer] infection less likely cannot entirely excluded abdomen was soft on clinical examination and no evidence of any cellulitis urine has been negative 2-blood and sputum culture currently pending, the patient MRSA nasal screen is negative 3- repeat chest x-ray showing significant worsening on the right side concerning for aspiration pneumonia 4-patient remains to be afebrile white count slightly up could be related to t he thrush 5-patient continue with the Zosyn will add nystatin swish and swallow and monitor clinical course closely Family at the bedside questions answered Dictation was produced using wutabout dictation software. please excuse any grammatical, word or spelling errors. Time with Patient: Less than 30
--- NOTE | 2023-12-22 15:57 | FL ---
EXAMINATION TYPE: FL barium swallow w video DATE OF EXAM: 12/22/2023 COMPARISON: NONE HISTORY: Aspiration, dysphagia TECHNIQUE: Fluoroscopy. FINDINGS: Fluoroscopic guidance was provided for the procedure performed in conjunction with the [facility] [place] [facility]. Please see complete report forthcoming from the Speech Pathology departmen t. Various consistencies from thin liquid to solids were administered. Fluoroscopy time 2 minutes 16 seconds. DAP: 1.8063 Number of images: 0. Various consistency from thin liquid to drink thick consistency penetration was evident. Aspiration o ccurred with all consistencies. The procedure was terminated at this time. Is moderate pooling within the vallecula during the exam. Note is made of penetration during repeated swallows to clear Aspiration is initially silent with delayed coughing beginning. IMPRESSION: 1. Aspiration with multiple consistencies. Please see speech pathology report.
[2023-12-22 17:30] LABS: Glucose,Whole Blood 175 mg/dL (70-110)
[2023-12-22] MEDS: NYSTATIN 100,000 UNIT/ML SUSP 500,000 UNIT/5 ML CUP PO SCH (18:13)
[2023-12-22] MEDS ORDERED: Potassium Replacement Protocol 1 EACH MISC MISCELLANE PRN (22:06)
[2023-12-22] MEDS: POTASSIUM CHLORIDE 20 MEQ in WATER FOR INJECTION 1 100ML.BAG IVPB SCH (23:06)
[2023-12-23 00:16] LABS: Glucose,Whole Blood 139 mg/dL (70-110)
--- NOTE | 2023-12-23 00:47 | XR ---
EXAM: XR Chest, 1 View CLINICAL HISTORY: Possible aspiration TECHNIQUE: Frontal view of the chest. COMPARISON: 12/22/2023. FINDINGS: Patient is rotated to the right. Heart is normal size. Hypoventilation. Slight decrease in left basilar atelectasis and mild diffuse interstitial prominence throughout the right lung. No pleural effusion or pneumothorax. Increased gas distention multiple loops of bowel underlying both hemidiaphragms. Bones are unchanged. IMPRESSION: Slight decrease in left basilar probable atelectasis. Unchanged and mild diffuse interstitial changes throughout the right lung. Increased gaseous distention of bowel underlying the hemidiaphragms. Otherwise no change.
[2023-12-23] MEDS: INSULIN ASPART (NovoLOG) 100 UNIT/ML VIAL SQ SCH (00:51)
[2023-12-23] MEDS: LABETALOL 200 MG TAB PO ONE (02:35)
[2023-12-23 05:13] LABS: African American GFR (CKD) >90 (>60 ml/min/1.73 sqM); Anion Gap 7 mmol/L; Blood Urea Nitrogen 22 mg/dL (9-20); Calcium 8.6 mg/dL (8.4-10.2); Carbon Dioxide 33 mmol/L (22-30); Chloride 96 mmol/L (98-107); Glucose 136 mg/dL (74-99); Non-African American GFR(CKD) >90 (>60 ml/min/1.73 sqM); Potassium 4.2 mmol/L (3.5-5.1); Sodium 136 mmol/L (137-145)
[2023-12-23 06:38] LABS: Glucose,Whole Blood 146 mg/dL (70-110)
[2023-12-23 09:23] LABS: Basophils % (A) 0 %; Eosinophils % (A) 0 %; HCT 35.4 % (39.0-53.0); HGB 11.3 gm/dL (13.0-17.5); Lymphocytes # (A) 0.5 k/uL (1.0-4.8); Lymphocytes % (A) 5 %; MCH 33.7 pg (25.0-35.0); MCV 105.3 fL (80.0-100.0); Macrocytosis Slight; Mean Platelet Volume 7.9; Monocytes # (A) 0.7 k/uL (0-1.0); Monocytes % (A) 7 %; Neutrophils # (A) 9.4 k/uL (1.3-7.7); Neutrophils % (A) 87 %; Platelet Count 253 k/uL (150-450); RBC 3.36 m/uL (4.30-5.90); RDW 13.6 % (11.5-15.5); WBC 10.9 k/uL (3.8-10.6)
[2023-12-23 11:41] LABS: Glucose,Whole Blood 120 mg/dL (70-110)
--- NOTE | 2023-12-23 12:34 | P.GSCN ---
History of Present Illness Consult date: 12/23/23 Reason for Consult: protein calorie malnutrition, dysphagia History of present illness: this a 63-year-old male with multiple medical problems. Patient is having silent aspiration. The patient has been consult for possible PEG tube placement . Past Medical History Past Medical History: Musculoskeletal Disorder Additional Past Medical History / Comment(s): ETOH abuse, DTs, chronic low back pain/herniated discs/scoliosis/spinal stenosis, right shoulder, pulmonary fibrosis, Home O2 3L History of Any Multi-Drug Resistant Organisms: None Reported Past Surgical History: Orthopedic Surgery Additional Past Surgical History / Comment(s): R ankle fx with surgical repair- pin in and out, back injections at [facility]. Left knee Past Anesthesia/Blood Transfusion Reactions: No Reported Reaction Additional Past Anesthesia/Blood Transfusion Reaction / Comm: Pt has never received blood. Past Psychological History: Anxiety, Depression Smoking Status: Never smoker Past Alcohol Use History: Abuse, Daily, Heavy Past Drug Use History: None Reported - Past Family History Father Family Medical History: Dementia Additional Family Medical History / Comment(s): Father is . Mother Family Medical History: Cancer Additional Family Medical History / Comment(s): Mother at age 64yrs of pancreatic cancer. Medications and Allergies Home Medications Medication Instructions Recorded Confirmed Type Citalopram Hydrobromide [CeleXA] 40 mg PO DAILY 03/25/21 12/17/23 History QUEtiapine [SEROquel] 50 mg PO TID@0800,1400,2000 03/25/21 12/17/23 History Folic Acid 1 mg PO DAILY #30 tab 03/30/21 12/17/23 Rx busPIRone HCL [Buspar] 7.5 mg PO BID 10/14/23 12/17/23 History Cbd Gummies 20mg 10 - 20 mg PO QID PRN 12/17/23 12/17/23 History Cyclobenzaprine [Flexeril] 5 - 10 mg PO Q8H PRN 12/17/23 12/17/23 History Medihoney 80% Gel 1 applic TOPICAL DAILY 12/17/23 12/17/23 History Megestrol Acetate 400 mg PO BID 12/17/23 12/17/23 History Melatonin 2 mg PO HS 12/17/23 12/17/23 History Melatonin 2 mg PO HS PRN 12/17/23 12/17/23 History Allergies Allergy/AdvReac Type Severity Reaction Status Date / Time No Known Allergies Allergy Verified 12/17/23 12:40 Surgical - Exam Vital Signs Temp Pulse Resp BP Pulse Ox 97.1 F L 122 H 28 H 85/57 87 L 12/16/23 23:37 12/16/23 23:37 12/16/23 23:37 12/16/23 23:37 12/16/23 23:37 - General well developed, well nourished, no distress - Eyes PERRL - ENT normal pinna - Abdomen Abdomen: soft, non tender Results - Labs 12/23/23 09:00 12/23/23 04:32 Abnormal Lab Results - Last 24 Hours (Table) 12/22/23 12/22/23 12/22/23 Range/Units 12:56 17:29 21:12 WBC (3.8-10.6) k/uL RBC (4.30-5.90) m/uL Hgb (13.0-17.5) gm/dL Hct (39.0-53.0) % MCV (80.0-100.0) fL Neutrophils # (1.3-7.7) k/uL Lymphocytes # (1.0-4.8) k/uL Sodium (137-145) mmol/L Potassium 3.2 L (3.5-5.1) mmol/L Chloride (98-107) mmol/L Carbon Dioxide (22-30) mmol/L BUN (9-20) mg/dL Glucose (74-99) mg/dL POC Glucose (mg/dL) 298 H 175 H (70-110) mg/dL 12/23/23 12/23/23 12/23/23 Range/Units 00:15 04:32 06:37 WBC (3.8-10.6) k/uL RBC (4.30-5.90) m/uL Hgb (13.0-17.5) gm/dL Hct (39.0-53.0) % MCV (80.0-100.0) fL Neutrophils # (1.3-7.7) k/uL Lymphocytes # (1.0-4.8) k/uL Sodium 136 L (137-145) mmol/L Potassium (3.5-5.1) mmol/L Chloride 96 L (98-107) mmol/L Carbon Dioxide 33 H (22-30) mmol/L BUN 22 H (9-20) mg/dL Glucose 136 H (74-99) mg/dL POC Glucose (mg/dL) 139 H 146 H (70-110) mg/dL 12/23/23 12/23/23 Range/Units 09:00 11:40 WBC 10.9 H (3.8-10.6) k/uL RBC 3.36 L (4.30-5.90) m/uL Hgb 11.3 L (13.0-17.5) gm/dL Hct 35.4 L (39.0-53.0) % MCV 105.3 H (80.0-100.0) fL Neutrophils # 9.4 H (1.3-7.7) k/uL Lymphocytes # 0.5 L (1.0-4.8) k/uL Sodium (137-145) mmol/L Potassium (3.5-5.1) mmol/L Chloride (98-107) mmol/L Carbon Dioxide (22-30) mmol/L BUN (9-20) mg/dL Glucose (74-99) mg/dL POC Glucose (mg/dL) 120 H (70-110) mg/dL Microbiology - Last 24 Hours (Table) 12/17/23 05:10 Blood Culture - Final Blood 12/17/23 04:50 Blood Culture - Final Blood Diabetes panel 12/22/23 12/23/23 Range/Units 21:12 04:32 Sodium 136 L (137-145) mmol/L Potassium 3.2 L 4.2 (3.5-5.1) mmol/L Chloride 96 L (98-107) mmol/L Carbon Dioxide 33 H (22-30) mmol/L BUN 22 H (9-20) mg/dL Creatinine 0.74 (0.66-1.25) mg/dL Glucose 136 H (74-99) mg/dL Calcium 8.6 (8.4-10.2) mg/dL Calcium panel 12/23/23 Range/Units 04:32 Calcium 8.6 (8.4-10.2) mg/dL Pituitary panel 12/22/23 12/23/23 Range/Units 21:12 04:32 Sodium 136 L (137-145) mmol/L Potassium 3.2 L 4.2 (3.5-5.1) mmol/L Chloride 96 L (98-107) mmol/L Carbon Dioxide 33 H (22-30) mmol/L BUN 22 H (9-20) mg/dL Creatinine 0.74 (0.66-1.25) mg/dL Glucose 136 H (74-99) mg/dL Calcium 8.6 (8.4-10.2) mg/dL Adrenal panel 12/22/23 12/23/23 Range/Units 21:12 04:32 Sodium 136 L (137-145) mmol/L Potassium 3.2 L 4.2 (3.5-5.1) mmol/L Chloride 96 L (98-107) mmol/L Carbon Dioxide 33 H (22-30) mmol/L BUN 22 H (9-20) mg/dL Creatinine 0.74 (0.66-1.25) mg/dL Glucose 136 H (74-99) mg/dL Calcium 8.6 (8.4-10.2) mg/dL Assessment and Plan Assessment: dysphagia, protein, insertion. Patient will be scheduled for PEG tube placement on Tuesday.
--- NOTE | 2023-12-23 14:08 | P.PN ---
Subjective Progress Note Date: 12/23/23 Hospital Course: 63-year-old male with PMH of chronic hypoxic respiratory failure due to pulmon raymond fibrosis 3.5 L home O2, history of alcohol abuse, anxiety and depression presented to the ED for altered mentation and described as family as shaking all day. In the ED he was noted to be waxing and waning with episodes where he yells out his name and other times where he seems to be confused and shaking. Patient was loaded on Keppra and Ativan for what was thought to be seizure like activity. In the ED BP 85/57, HR 122, Tmax 101.5F, RR 28, 87% on RA. CBC WBC 13.3, Hg 12.8, Hct 38.5, MCV 101. Coag panel within normal limits. ABG pH 7.36, pCO2 44. CMP Na 134, bicarb 21, Cr 0.51, glu 100, Ca 8.1. Lactic acid 5.3. UA negative LE or nitrite. UDS positive for opiate, benzodiazepine and THC. Serum EtOH negative. Flu, RSV, COVID negative. TSH 2.43. Procal 0.09. B12 399. Ammonia 32. CRP 15. Brain CT negative for acute changes. CXR scattered parenchymal opacities favoring pulmonary fibrosis. EKG sinus tachycardia. Patient was started on Vanomcyin and Zosyn and admitted for PNA versus men ingitis. Initially plans for LP. Neurology and ID consulted, EEG performed showed background slowing, disorganization, suggestive of mild to moderate encephalopathy. His mentation improved and LP was cancelled due to low probability of meningitis. Keppra was titrated down. His altered mentation was thought to be related to possible EtOH withdrawal, aspiration PNA, and polypharmacy. 12/19 Patient was seen in the ICU. Reports breathing improved. Maintained on Vanomcycin and Zosyn. Last dose for Ativan was yesterday around 4:30PM for EtOH withdrawal. Currently on Keppra 500 IV BID being titrated down by Neurology. CBC WBC 10.7 Hg 10.9 Hct 33.5 MCV 104.7. BMP BUN 3 Cr 0.5. CXR done today shows improved interstitial opacities. 12/20 Patient was seen in the ICU. Reports breathing improved. Currently on 7L HFNC. Maintained on Vanomcycin and Zosyn. Scheduled Xanax added by Pulmonary for better control of anxiety. Keppra discontinued by Neurology. CBC Hg 11.8 Hct 37 MCV 106.4. BMP BUN 8, glu 130. CXR done today shows left lower lobe PNA. Subjective: Patient seen and examined at bedside. No acute events overnight. Respiratory function improving. Having difficulty with eating. Pertinent positives and negatives as discussed above, a complete review of systems was performed and all other systems are negative. Vitals Signs Reviewed. General: Nontoxic, no distress, appears at stated age Derm: Warm, dry Head: Atraumatic, normocephalic, symmetric Eyes: EOMI, no lid lag, anicteric sclera Mouth: No lip lesion, mucus membranes moist Cardiovascular: S1S2 reg, no murmur Lungs: Bilateral Rales, no accessory muscle use, supplemental oxygen Abdominal: Soft, nontender to palpation, no guarding, no appreciable organomegaly Ext: No gross muscle atrophy, no edema, no contractures Neuro: CN II-XI grossly intact, no focal neuro deficits Psych: Alert, oriented, appropriate affect Data Reviewed Today: Pertinent Labs: WBC 10.9, hemoglobin 11.3, sodium 136, creatinine 0.74, blood sugars range between 1 20-1 46 Imaging: Chest x-ray independently interpreted, shows bilateral interstitial opacities similar to prior Assessment and Plan: Acute metabolic encephalopathy History of alcohol dependence Acute on chronic hypoxic respiratory failure Interstitial lung disease Sepsis secondary to aspiration pneumonia Dysphagia Oral candidiasis History of anxiety - Mental status improved - Initially there was concern for seizure disorder, currently seizure-free, not on any antiepileptics. - Continue IV Solu-Medrol 60 every 6 hours, monitor blood sugars, continue to wean oxygen - Also on DuoNeb every 4 hours as needed - Continue IV Zosyn 3.375 g every 8 hours, sputum cultures growing normal respiratory dali, MRSA screen negative -On nystatin oral suspension 4 times daily - Neurology, pulmonology, infectious disease following - On thiamine 100 mg daily oral - Continue Xanax 0.5 3 times daily, monitor for sedation - Patient pending PEG tube placement, likely Tuesday DVT ppx: Subcu heparin Code status: Full code Anticipated discharge place: Pending clinical course Anticipated discharge time: Pending clinical course Objective - Vital Signs Vital signs: Vital Signs Temp 98.2 F 12/23/23 08:00 Pulse 79 12/23/23 10:00 Resp 24 12/23/23 10:00 BP 136/87 12/23/23 10:00 Pulse Ox 100 12/23/23 10:00 FiO2 40 12/23/23 07:00 Intake & Output 12/22/23 12/23/23 12/23/23 18:59 06:59 18:59 Intake Total 400 360 220 Output Total 325 400 200 Balance 75 -40 20 Weight 51.8 kg 51.4 kg Intake: IV 400 360 220 Piperacillin-Tazobactam 3 200 100 .375 gm In Sodium Chloride 0.9% 100 ml @ 25 mls/hr IVPB Q8HR ИРИНА Rx# :[id number] Potassium Chloride 20 meq 200 In Water For Injection 1 100ml.bag @ 50 mls/hr IVPB Q2H ИРИНА Rx#: [id number] Sodium Chloride 0.9% 1, 200 160 120 000 ml @ 20 mls/hr IV . Q24H ИРИНА Rx#:[id number] Oral 0 Output: Urine 325 400 200 Other: Voiding Method Urinal Bedpan Urinal # Bowel Movements 1 - Labs CBC & Chem 7: 12/23/23 09:00 12/23/23 04:32 Labs: Abnormal Lab Results - Last 24 Hours (Table) 12/22/23 12/22/23 12/23/23 Range/Units 17:29 21:12 00:15 WBC (3.8-10.6) k/uL RBC (4.30-5.90) m/uL Hgb (13.0-17.5) gm/dL Hct (39.0-53.0) % MCV (80.0-100.0) fL Neutrophils # (1.3-7.7) k/uL Lymphocytes # (1.0-4.8) k/uL Sodium (137-145) mmol/L Potassium 3.2 L (3.5-5.1) mmol/L Chloride (98-107) mmol/L Carbon Dioxide (22-30) mmol/L BUN (9-20) mg/dL Glucose (74-99) mg/dL POC Glucose (mg/dL) 175 H 139 H (70-110) mg/dL 12/23/23 12/23/23 12/23/23 Range/Units 04:32 06:37 09:00 WBC 10.9 H (3.8-10.6) k/uL RBC 3.36 L (4.30-5.90) m/uL Hgb 11.3 L (13.0-17.5) gm/dL Hct 35.4 L (39.0-53.0) % MCV 105.3 H (80.0-100.0) fL Neutrophils # 9.4 H (1.3-7.7) k/uL Lymphocytes # 0.5 L (1.0-4.8) k/uL Sodium 136 L (137-145) mmol/L Potassium (3.5-5.1) mmol/L Chloride 96 L (98-107) mmol/L Carbon Dioxide 33 H (22-30) mmol/L BUN 22 H (9-20) mg/dL Glucose 136 H (74-99) mg/dL POC Glucose (mg/dL) 146 H (70-110) mg/dL 12/23/23 Range/Units 11:40 WBC (3.8-10.6) k/uL RBC (4.30-5.90) m/uL Hgb (13.0-17.5) gm/dL Hct (39.0-53.0) % MCV (80.0-100.0) fL Neutrophils # (1.3-7.7) k/uL Lymphocytes # (1.0-4.8) k/uL Sodium (137-145) mmol/L Potassium (3.5-5.1) mmol/L Chloride (98-107) mmol/L Carbon Dioxide (22-30) mmol/L BUN (9-20) mg/dL Glucose (74-99) mg/dL POC Glucose (mg/dL) 120 H (70-110) mg/dL Microbiology - Last 24 Hours (Table) 12/17/23 05:10 Blood Culture - Final Blood 12/17/23 04:50 Blood Culture - Final Blood
--- NOTE | 2023-12-23 14:28 | P.PN ---
Subjective Progress Note Date: 12/23/23 Principal diagnosis: Acute metabolic encephalopathy and acute on chronic hypoxic respiratory failure secondary to IPF. This is a 63-year-old male patient was brought into the ICU because of altered mentation. The patient has history of advanced pulmonary fibrosis. The patient has been diagnosed having IPF few years back and the patient has been treated with Ofev and he has severe restrictive lung disease with an FVC of 45% predicted and is also oxygen dependent at 3 L/min nasal cannula. He has history of alcoholism and the patient is chronically debilitated. He drinks alcohol excessively approximately 7 beers a day and he also drinks 1/5 of peppermint schnapps every day. The patient was in the hospital back in October 2023 and at that time the patient sustained acute hypoxic respiratory failure and required intubation mechanical ventilation. Note that during his hospital stay, the patient also sustained some alcohol withdrawal symptoms. He was ultimately stabilized and he was discharged to be readmitted yesterday due to diminished level of consciousness, increased shakiness, confusion, unable to communicate and unable to provide appropriate history. On examination, the patient r shows signs of significant debility, muscle wasting and significant loss of total body muscle mass and malnutrition and deconditioning. The patient was moved to the intensive care unit. Earlier this morning, I had a sitter at the bedside and I was able to briefly communicate with the patient. Nevertheless, he was obviously encephalopathic. He was able to maintain eye contact. He was saying few words and following simple commands and following that and the patient became more agitated he was given Ativan and he became more rested. Obviously, the shakiness is not a sign of seizure at this point in time. He was given Keppra overnight. At time of my evaluation the patient was able to communicate even while he was having those shakes. It is possible that this may be some signs of tremors, delirium tremens this been going on. The viral screen has been negative. Likely his level was at 2.9. The blood gas was done overnight showed a pH of 7.36 with a pCO2 of 44 and pO2 of 61 and this was an FiO2 of 44%. The patient's WBC count at 15.3, it was 4.8 and platelet count of 270. Normal coagulation profile. BUN is at 40 with a creatinine of 0.5 and sodium levels at 134 with a potassium level of 4.8. LFTs are normal. UA is showing possible blood and +1 glucose. No signs of any infection. Alcohol level less than 10. The chest x-ray is consistent with pulmonary fibrosis and the patient has small lung volumes bilaterally and scattered pulmonary opacities favor scarring. An acute superimposed process cannot be completely ruled out. CAT scan of the brain that was done in the emergency showed no acute hemorrhage hydrocephalus or mass effects. At this point in time, the patient is on 5 L of oxygen by nasal cannula with a pulse ox of 100%. Hemodynamically stable. No reported fever. There was a temperature max of 100.2 during this current admission. Currently afebrile. Cardiac rhythm is sinus. On today's evaluation of 12/18/2023, the patient is arousable and awake and he is following some simple commands and answering questions. Overnight, the patient received a total of 4 mg of Ativan and the last dose was given to him at 9:21 P M. He is awake and alert and communicating. Extremely debilitated. Extremely weak. Has a weak cough. Oral mucosa remains dry. He was on oxygen and he was brought up to 13 L and he was weaned down to 10 L and I further cut down the oxygen flow to 5 L this morning. He is on normal saline at rate of 130 cc an hour. A repeat chest x-ray was done today and shows consolidation and chronic fibrotic changes. There is worsening of the consolidation airspace disease on the right compared to yesterday's chest x-ray. Suspected aspiration pneumonia. Based on that, the patient was covered with IV Zosyn and vancomycin. The white cell count today is at 14.1 with a hemoglobin 11.7 and a platelet count of 254. BUN is at 2 with a creatinine of 0.4 and sodium levels at 131 with a potassium level of 3.1. LFTs are within normal limits. The patient is extremely debilitated and weak. May benefit from a Dobbhoff catheter insertion. This may be needed at a later stage IV medication enteral feeding. Hemodynamically stable. Neurology on the case. No evidence of any seizures. He is maintained on Keppra. EEG is to follow. No neck stiffness. No fever at this point in time. Patient was reevaluated today on 12/19/2023, remains in the ICU, he is now on 5 L nasal cannula his mental status has significantly improved, remains on IV fluid at 100 cc/h, remains on Zosyn and vancomycin, overall the patient is steadily improving he feels better, nonetheless patient is chronically ill and his illness is mostly related to his severe interstitial lung disease/pulmonary fibrosis. WBC count today is 11.2 hemoglobin 12.4 basic metabolic profile is normal renal profile is normal. Chest x-ray continues to show bilateral interstitial lung disease, and dilated bowel loops Reevaluate today on 12/20/2023, patient remains in the ICU, now on 10 L nasal cannula, last night he was on BiPAP 12/6/40%. Remains marginal at best, patient has shortness of breath with any activity, his IV fluids at KVO he is on vancomycin and Zosyn, patient is quite anxious, and I recommend today Xanax 0.5 mg every 8 hours as needed, and I am also recommending patient to go to airvo as well as continue Solu-Medrol. Patient remains on antibiotics as per infectious disease on the case, I honestly believe the patient has worsening IPF, and prognosis is extremely poor and guarded. Today I had a long discussion with the patient about CODE STATUS, he wants to remain full code, and he was made aware that potentially if he ends up intubated mechanically ventilated the most likely chance that he would end up with a tracheostomy and PEG tube placement, and he clearly stated to me that he would like to see his grandchildren and there is one coming on the way as the patient remains full code at this point Reevaluate today on12/21/23, patient is feeling better today, he is down to 7 L high flow nasal cannula, seems to be less anxious, he is on anxiolytic medications/Xanax, breathing easier, CBC is relatively normal basic metabolic profile is normal blood sugar is normal, patient remains a bit tachypneic and tachycardic. But definitely improved compared to the last couple of days. Reevaluated today on 12/22/2023, patient is basically about the same as yesterday, remains tachypneic and tachycardic. Patient is still on steroids, antibiotics, bronchodilators, and he is still on 7 L high flow nasal cannula. Last night had to be placed on BiPAP 12/6/40% sitting at bedside. WBC is 15.5 hemoglobin 12.1 basic metabolic profile is normal bicarb 37 renal profile is normal, chest x-ray continues to show bilateral interstitial infiltrates. Mostly at the bases and peripherally Patient was reevaluated today on 12/23/2023, patient is feeling better today, breathing easier, continues to have episodes of aspiration and choking sensation when he is drinking fluids, I believe the patient will eventually most likely require a PEG tube placement. In the meantime his pulmonary status seems to be improving and responding to steroids and antibiotics as well as bronchodilators. He is down today to 4 L nasal cannula, and has a bedside BiPAP 12//40% that he uses at night. I plan to transfer the patient today out of the ICU to [facility] if his condition gets any worse I will bring him back to the ICU if requires intubation.WBC count is 10.9 hemoglobin 11.3, basic metabolic profile is normal and renal profile is normal transferred to Objective - Vital Signs Vital signs: Vital Signs Temp 98.2 F 12/23/23 08:00 Pulse 79 12/23/23 10:00 Resp 24 12/23/23 10:00 BP 136/87 12/23/23 10:00 Pulse Ox 100 12/23/23 10:00 FiO2 40 12/23/23 07:00 Intake & Output 12/22/23 12/23/23 12/23/23 18:59 06:59 18:59 Intake Total 400 360 220 Output Total 325 400 200 Balance 75 -40 20 Weight 51.8 kg 51.4 kg Intake: IV 400 360 220 Piperacillin-Tazobactam 3 200 100 .375 gm In Sodium Chloride 0.9% 100 ml @ 25 mls/hr IVPB Q8HR ИРИНА Rx# :[id number] Potassium Chloride 20 meq 200 In Water For Injection 1 100ml.bag @ 50 mls/hr IVPB Q2H ИРИНА Rx#: [id number] Sodium Chloride 0.9% 1, 200 160 120 000 ml @ 20 mls/hr IV . Q24H ИРИНА Rx#:[id number] Oral 0 Output: Urine 325 400 200 Other: Voiding Method Urinal Bedpan Urinal # Bowel Movements 1 - Exam General: Reveals 63-year-n4 L nasal cannula not in distress Skin: Skin is warm and dry and no rashes or lesions are noted. Eye: Pupils are equal, round and reactive to light, extra-ocular movements are intact; there is normal conjunctiva bilaterally. Ears, nose, mouth and throat: There are moist mucous membranes and no oral lesions. Neck: The neck is supple, there is no tenderness or JVD. Cardiovascular: Tachycardic, normal S1-S2,. No murmur, rub or gallop is appreciated. Respiratory: Velcro rales noted at the bases bilaterally. Gastrointestinal: Soft, non-distended, non-tender abdomen without masses or organomegaly noted. There is no rebound or guarding present. Bowel sounds are unremarkable. Back: There is no tenderness to palpation in the midline. There is no obvious deformity. Musculoskeletal: Significant muscle wasting is noted. Neurological: Alert oriented x 3 no gross focal deficit Psychiatric: Cooperative, appropriate mood & affect, normal judgment. - Labs CBC & Chem 7: 12/23/23 09:00 12/23/23 04:32 Labs: Abnormal Lab Results - Last 24 Hours (Table) 12/22/23 12/22/23 12/23/23 Range/Units 17:29 21:12 00:15 WBC (3.8-10.6) k/uL RBC (4.30-5.90) m/uL Hgb (13.0-17.5) gm/dL Hct (39.0-53.0) % MCV (80.0-100.0) fL Neutrophils # (1.3-7.7) k/uL Lymphocytes # (1.0-4.8) k/uL Sodium (137-145) mmol/L Potassium 3.2 L (3.5-5.1) mmol/L Chloride (98-107) mmol/L Carbon Dioxide (22-30) mmol/L BUN (9-20) mg/dL Glucose (74-99) mg/dL POC Glucose (mg/dL) 175 H 139 H (70-110) mg/dL 12/23/23 12/23/23 12/23/23 Range/Units 04:32 06:37 09:00 WBC 10.9 H (3.8-10.6) k/uL RBC 3.36 L (4.30-5.90) m/uL Hgb 11.3 L (13.0-17.5) gm/dL Hct 35.4 L (39.0-53.0) % MCV 105.3 H (80.0-100.0) fL Neutrophils # 9.4 H (1.3-7.7) k/uL Lymphocytes # 0.5 L (1.0-4.8) k/uL Sodium 136 L (137-145) mmol/L Potassium (3.5-5.1) mmol/L Chloride 96 L (98-107) mmol/L Carbon Dioxide 33 H (22-30) mmol/L BUN 22 H (9-20) mg/dL Glucose 136 H (74-99) mg/dL POC Glucose (mg/dL) 146 H (70-110) mg/dL 12/23/23 Range/Units 11:40 WBC (3.8-10.6) k/uL RBC (4.30-5.90) m/uL Hgb (13.0-17.5) gm/dL Hct (39.0-53.0) % MCV (80.0-100.0) fL Neutrophils # (1.3-7.7) k/uL Lymphocytes # (1.0-4.8) k/uL Sodium (137-145) mmol/L Potassium (3.5-5.1) mmol/L Chloride (98-107) mmol/L Carbon Dioxide (22-30) mmol/L BUN (9-20) mg/dL Glucose (74-99) mg/dL POC Glucose (mg/dL) 120 H (70-110) mg/dL Microbiology - Last 24 Hours (Table) 12/17/23 05:10 Blood Culture - Final Blood 12/17/23 04:50 Blood Culture - Final Blood Assessment and Plan Assessment: Impression acute on chronic hypoxic respiratory failure secondary to interstitial lung disease Acute toxic metabolic encephalopathy Possible acute alcohol withdrawal is a possibility. Severe protein calorie malnutrition Idiopathic pulmonary fibrosis/interstitial lung disease mostly on 3 L nasal cannula at home Degenerative joint disease Extreme medical debility Difficulty swallowing and aspiration, may require PEG tube placement Recommendation: Continue oxygen and titrate accordingly, today on 4 L nasal cannula Continue Xanax every 8 hours Continue hydration Continue empiric Zosyn, Continue steroids. Continue GI DVT prophylaxis CODE STATUS remains full Patient to 3 S. today Will continue to follow Time with Patient: Less than 30
--- NOTE | 2023-12-23 15:04 | P.PN ---
Subjective Progress Note Date: 12/23/23 Principal diagnosis: Reason for follow-up is likely aspiration pneumonia Patient is a 63-year-old male with a past medical history significant for EtOH abuse DTs pulmonary fibrosis on home O2 recent admission to the hospital treated for DTs patient has been brought back to the hospital for evaluation of altered mental status and there was concern for possible aspirat ion pneumonia in this patient who did have a fever on presentation to the hospital. On today's visit that is 12/23/2023, patient has been afebrile, patient is breathing comfortably and is currently on 4 L nasal cannula oxygen, patient denies having any worsening cough or sputum production no chest pain shortness of breath, patient denies nausea vomiting or diarrhea and no abdominal pain. Patient white count is down to 10.9 creatinine 0.72 Objective - Vital Signs Vital signs: Vital Signs Temp 98.2 F 12/23/23 08:00 Pulse 79 12/23/23 10:00 Resp 24 12/23/23 10:00 BP 136/87 12/23/23 10:00 Pulse Ox 100 12/23/23 10:00 FiO2 40 12/23/23 07:00 Intake & Output 12/22/23 12/23/23 12/23/23 18:59 06:59 18:59 Intake Total 400 360 220 Output Total 325 400 200 Balance 75 -40 20 Weight 51.8 kg 51.4 kg Intake: IV 400 360 220 Piperacillin-Tazobactam 3 200 100 .375 gm In Sodium Chloride 0.9% 100 ml @ 25 mls/hr IVPB Q8HR [facility] Rx# :[id number] Potassium Chloride 20 meq 200 In Water For Injection 1 100ml.bag @ 50 mls/hr IVPB Q2H [facility] Rx#: [id number] Sodium Chloride 0.9% 1, 200 160 120 000 ml @ 20 mls/hr IV . Q24H [facility] Rx#:[id number] Oral 0 Output: Urine 325 400 200 Other: Voiding Method Urinal Bedpan Urinal # Bowel Movements 1 - Exam GENERAL DESCRIPTION: Middle-age male lying in bed in no distress RESPIRATORY SYSTEM: Unlabored breathing , decreased breath sounds at bases HEART: S1 S2 regular rate and rhythm , ABDOMEN: Soft , no tenderness EXTREMITIES: No edema feet - Labs CBC & Chem 7: 12/23/23 09:00 12/23/23 04:32 Labs: Abnormal Lab Results - Last 24 Hours (Table) 12/22/23 12/22/23 12/23/23 Range/Units 17:29 21:12 00:15 WBC (3.8-10.6) k/uL RBC (4.30-5.90) m/uL Hgb (13.0-17.5) gm/dL Hct (39.0-53.0) % MCV (80.0-100.0) fL Neutrophils # (1.3-7.7) k/uL Lymphocytes # (1.0-4.8) k/uL Sodium (137-145) mmol/L Potassium 3.2 L (3.5-5.1) mmol/L Chloride (98-107) mmol/L Carbon Dioxide (22-30) mmol/L BUN (9-20) mg/dL Glucose (74-99) mg/dL POC Glucose (mg/dL) 175 H 139 H (70-110) mg/dL 12/23/23 12/23/23 12/23/23 Range/Units 04:32 06:37 09:00 WBC 10.9 H (3.8-10.6) k/uL RBC 3.36 L (4.30-5.90) m/uL Hgb 11.3 L (13.0-17.5) gm/dL Hct 35.4 L (39.0-53.0) % MCV 105.3 H (80.0-100.0) fL Neutrophils # 9.4 H (1.3-7.7) k/uL Lymphocytes # 0.5 L (1.0-4.8) k/uL Sodium 136 L (137-145) mmol/L Potassium (3.5-5.1) mmol/L Chloride 96 L (98-107) mmol/L Carbon Dioxide 33 H (22-30) mmol/L BUN 22 H (9-20) mg/dL Glucose 136 H (74-99) mg/dL POC Glucose (mg/dL) 146 H (70-110) mg/dL 12/23/23 Range/Units 11:40 WBC (3.8-10.6) k/uL RBC (4.30-5.90) m/uL Hgb (13.0-17.5) gm/dL Hct (39.0-53.0) % MCV (80.0-100.0) fL Neutrophils # (1.3-7.7) k/uL Lymphocytes # (1.0-4.8) k/uL Sodium (137-145) mmol/L Potassium (3.5-5.1) mmol/L Chloride (98-107) mmol/L Carbon Dioxide (22-30) mmol/L BUN (9-20) mg/dL Glucose (74-99) mg/dL POC Glucose (mg/dL) 120 H (70-110) mg/dL Microbiology - Last 24 Hours (Table) 12/17/23 05:10 Blood Culture - Final Blood 12/17/23 04:50 Blood Culture - Final Blood Assessment and Plan (1) Aspiration pneumonia Current Visit: Yes Status: Acute Code(s): J69.0 - PNEUMONITIS DUE TO INHALATION OF FOOD AND VOMIT SNOMED Code(s): 096139442 (2) Leukocytosis Current Visit: Yes Status: Acute Code(s): D72.829 - ELEVATED WHITE BLOOD CELL COUNT, UNSPECIFIED SNOMED Code(s): 380602314 (3) Thrush Current Visit: Yes Status: Acute Code(s): B37.0 - CANDIDAL STOMATITIS SNOMED Code(s): 67102097 Plan: 1patient presented to hospital with sepsis in this patient who did have fever tachycardia elevated white count concerning for possible aspiration pneumonitis underlying [employer] infection less likely cannot entirely excluded abdomen was soft on clinical examination and no evidence of any cellulitis urine has been neg ative 2-blood and sputum culture currently pending, the patient MRSA nasal screen is negative 3- repeat chest x-ray showing significant worsening on the right side concerning for aspiration pneumonia 4-patient remains to be afebrile white count has almost normalized 5-patient continue with the Zosyn and nystatin swish and swallow as long as the patient is able to tolerate it and monitor clinical course closely Family at the bedside questions answered Dictation was produced using [employer] dictation software. please excuse any grammatical, word or spelling errors.
--- NOTE | 2023-12-23 15:10 | XR ---
EXAMINATION TYPE: XR chest 1V portable DATE OF EXAM: 12/23/2023 2:48 PM CLINICAL INDICATION:Male, 63 years old with history of NGT pulled back; H COMPARISON: Chest radiographs from TECHNIQUE: XR chest 1V portable Frontal view of the chest.2:25 today FINDINGS: Lungs/Pleura: There is no evidence of pleural effusion, focal consolidation, or pneumothorax. Pulmonary vascularity: Congestive Heart/mediastinum: Cardiomediastinal silhouette is unremarkable. Musculoskeletal: No acute osseous pathology. Other findings: None Lines/Tubes: Nasogastric tube with distal tip projecting over the distal stomach. IMPRESSION: Pulmonary venous congestion. Obstructive bowel gas pattern. Nasogastric tube with distal tip projecting over the distal stomach.
--- NOTE | 2023-12-23 15:19 | XR ---
EXAMINATION TYPE: XR chest 1V portable DATE OF EXAM: 12/23/2023 2:48 PM CLINICAL INDICATION:Male, 63 years old with history of NGT placement; [facility] COMPARISON: 12/22/2023 radiograph TECHNIQUE: XR chest 1V portable Frontal view of the chest. FINDINGS: Lungs/Pleura: There is no evidence of pleural effusion, focal consolidation, or pneumothorax. Pulmonary vascularity: Congested Heart/mediastinum: Cardiomediastinal silhouette is unremarkable. Musculoskeletal: No acute osseous pathology. Other findings: None Lines/Tubes: Nasogastric tube with distal tip projecting over the distal stomach or proximal duodenum. IMPRESSION: Nasogastric tube with distal tip projecting over the distal stomach or proximal duodenum.
[2023-12-23 17:13] LABS: Glucose,Whole Blood 127 mg/dL (70-110)
[2023-12-23 20:09] LABS: Glucose,Whole Blood 133 mg/dL (70-110)
[2023-12-24 00:01] LABS: Glucose,Whole Blood 115 mg/dL (70-110)
[2023-12-24 06:20] LABS: Glucose,Whole Blood 163 mg/dL (70-110)
--- NOTE | 2023-12-24 10:52 | P.PN ---
Subjective Progress Note Date: 12/24/23 63-year-old male with PMH of chronic hypoxic respiratory failure due to pulmonary fibrosis 3.5 L home O2, history of alcohol abuse, anxiety and depression presented to the ED for altered mentation and described as family as shaking all day. In the ED he was noted to be waxing and waning with episodes where he yells out his name and other times where he seems to be confused and shaking. Patient was loaded on Keppra and Ativan for what was thought to be seizure like activity. In the ED BP 85/57, HR 122, Tmax 101.5F, RR 28, 87% on RA. CBC WBC 13.3, Hg 12.8, Hct 38.5, MCV 101. Coag panel within normal limits. ABG pH 7.36, pCO2 44. CMP Na 134, bicarb 21, Cr 0.51, glu 100, Ca 8.1. Lactic acid 5.3. UA negative LE or nitrite. UDS positive for opiate, benzodiazepine and THC. Serum EtOH negative. Flu, RSV, COVID negative. TSH 2.43. Procal 0.09. B12 399. Ammonia 32. CRP 15. Brain CT negative for acute changes. CXR scattered parenchymal opacities favoring pulmonary fibrosis. EKG sinus tachycardia. Patient was started on Vanomcyin and Zosyn and admitted for PNA versus meningitis. Initially plans for LP. Neurology and ID consulted, EEG performed showed background slowing, disorganization, suggestive of mild to moderate encephalopathy. His mentation improved and LP was cancelled due to low probabi lity of meningitis. Keppra was titrated down. His altered mentation was thought to be related to possible EtOH withdrawal, aspiration PNA, and polypharmacy. MRSA nares negative, Vancomycin discontinued 12/19. Keppra weaned off 12/20. Patient continues to aspirate with feeds. Video swallow confirmed this on 12/21. Surgery consulted with plans for PEG on Tuesday. 12/23 Patient was seen and examined. Breathing better. Currently 98% on 2L. Currently with NG tube. Plans for PEG on Tuesday. CBC and BMP pending at the time of this note. General: non toxic, no distress, appears at stated age Derm: warm, dry Head: atraumatic, normocephalic, symmetric Eyes: EOMI, no lid lag, anicteric sclera Mouth: no lip lesion, mucus membranes moist Cardiovascular: S1S2 tachy, no murmur Lungs: Coarse BS bilateral, no rhonchi, no rales , no accessory muscle use Ext: no gross muscle atrophy, no edema, no contractures Neuro: no focal neuro deficits Psych: Alert, oriented, appropriate affect Based on my assessment of this patient, this patient meets a high complexity level of care. Patient has an acute diagnosis of sepsis due to aspiration PNA that poses a threat to life or bodily function. Acute metabolic encephalopathy: Multifactorial. EtOH abuse. Aspiration PNA. Polypharmacy. Weaned off Keppra. Seziure and Fall precautions. Neurology on board. Sepsis due to aspiration PNA: BCx and Sputum Cx prelim negative. Continue Zosyn 3.375g IV TID (D8). Telemetry monitoring. NS at 20 cc/hr. Plans for PEG on on. Surgery, ID and Pulmonary on board. EtOH abuse with DTs: Ativan PRN for CIWA protocol. Macrocytic anemia: Likely due to EtOH abuse. Acute on chronic hypoxic respiratory failure: Currently on 2L HFNC. DuoNeb PRN for SOB/wheezing. Pulmonary fibrosis CODE STATUS: FULL CODE DVT Prophylaxis: Heparin SQ. GI Prophylaxis: Protonix IV Designated medical POA if patient is not able to make medical decisions for themselves: I have reviewed the following in home sales consultant notes: Surgery, Pulmonary, Neurology, ID note. I have reviewed the results of the following tests: I have ordered the following tests: CBC and BMP is pending. I have discussed the care of this patient with the following independent historian: AALIYAH. I have independently interpreted the following test below: I have discussed the management of this patient with the following physician: Objective - Vital Signs Vital signs: Vital Signs Temp 97.8 F 12/23/23 20:00 Pulse 94 12/24/23 04:00 Resp 16 12/24/23 04:00 BP 146/86 12/24/23 04:00 Pulse Ox 98 12/24/23 04:00 FiO2 40 12/23/23 07:00 Intake & Output 12/23/23 12/24/23 12/24/23 18:59 06:59 18:59 Intake Total 220 Output Total 200 577 Balance 20 -577 Weight 51.4 kg Intake: IV 220 Piperacillin-Tazobactam 3 100 .375 gm In Sodium Chloride 0.9% 100 ml @ 25 mls/hr IVPB Q8HR [facility] Rx# :[id number] Sodium Chloride 0.9% 1, 120 000 ml @ 20 mls/hr IV . Q24H [facility] Rx#:[id number] Output: Urine 200 575 Stool 2 Other: Voiding Method Bedpan Urinal # Bowel Movements 1 - Labs CBC & Chem 7: 12/23/23 09:00 12/23/23 04:32 Labs: Abnormal Lab Results - Last 24 Hours (Table) 12/23/23 12/23/23 12/23/23 Range/Units 09:00 11:40 17:11 WBC 10.9 H (3.8-10.6) k/uL RBC 3.36 L (4.30-5.90) m/uL Hgb 11.3 L (13.0-17.5) gm/dL Hct 35.4 L (39.0-53.0) % MCV 105.3 H (80.0-100.0) fL Neutrophils # 9.4 H (1.3-7.7) k/uL Lymphocytes # 0.5 L (1.0-4.8) k/uL POC Glucose (mg/dL) 120 H 127 H (70-110) mg/dL 12/23/23 12/24/23 12/24/23 Range/Units 20:07 00:00 06:18 WBC (3.8-10.6) k/uL RBC (4.30-5.90) m/uL Hgb (13.0-17.5) gm/dL Hct (39.0-53.0) % MCV (80.0-100.0) fL Neutrophils # (1.3-7.7) k/uL Lymphocytes # (1.0-4.8) k/uL POC Glucose (mg/dL) 133 H 115 H 163 H (70-110) mg/dL
[2023-12-24 11:37] LABS: Basophils % (A) 0 %; Eosinophils % (A) 0 %; HCT 37.1 % (39.0-53.0); HGB 11.7 gm/dL (13.0-17.5); Lymphocytes # (A) 0.6 k/uL (1.0-4.8); Lymphocytes % (A) 6 %; MCHC 31.4 g/dL (31.0-37.0); MCV 105.2 fL (80.0-100.0); Macrocytosis Slight; Mean Platelet Volume 8.4; Monocytes # (A) 0.6 k/uL (0-1.0); Monocytes % (A) 6 %; Neutrophils # (A) 7.9 k/uL (1.3-7.7); Neutrophils % (A) 86 %; Platelet Count 288 k/uL (150-450); RBC 3.53 m/uL (4.30-5.90); RDW 13.6 % (11.5-15.5); WBC 9.2 k/uL (3.8-10.6)
[2023-12-24 11:57] LABS: African American GFR (CKD) >90 (>60 ml/min/1.73 sqM); Anion Gap 6 mmol/L; Blood Urea Nitrogen 24 mg/dL (9-20); Calcium 9.1 mg/dL (8.4-10.2); Carbon Dioxide 38 mmol/L (22-30); Chloride 94 mmol/L (98-107); Glucose 145 mg/dL (74-99); Non-African American GFR(CKD) >90 (>60 ml/min/1.73 sqM); Potassium 3.7 mmol/L (3.5-5.1); Sodium 138 mmol/L (137-145)
[2023-12-24 12:00] LABS: Glucose,Whole Blood 123 mg/dL (70-110)
--- NOTE | 2023-12-24 14:23 | P.PN ---
Subjective Progress Note Date: 12/24/23 Principal diagnosis: Acute metabolic encephalopathy and acute on chronic hypoxic respiratory failure secondary to IPF. This is a 63-year-old male patient was brought into the ICU because of altered mentation. The patient has history of advanced pulmonary fibrosis. The patient has been diagnosed having IPF few years back and the patient has been treated with Ofev and he has severe restrictive lung disease with an FVC of 45% predicted and is also oxygen dependent at 3 L/min nasal cannula. He has history of alcoholism and the patient is chronically debilitated. He drinks alcohol excessively approximately 7 beers a day and he also drinks 1/5 of peppermint schnapps every day. The patient was in the hospital back in October 2023 and at that time the patient sustained acute hypoxic respiratory failure and required intubation mechanical ventilation. Note that during his hospital stay, the patient also sustained some alcohol withdrawal symptoms. He was ultimately stabilized and he was discharged to be readmitted yesterday due to diminished level of consciousness, increased shakiness, confusion, unable to communicate and unable to provide appropriate history. On examination, the patient r shows signs of significant debility, muscle wasting and significant loss of total body muscle mass and malnutrition and deconditioning. The patient was moved to the intensive care unit. Earlier this morning, I had a sitter at the bedside and I was able to briefly communicate with the patient. Nevertheless, he was obviously encephalopathic. He was able to maintain eye contact. He was saying few words and following simple commands and following that and the patient became more agitated he was given Ativan and he became more rested. Obviously, the shakiness is not a sign of seizure at this point in time. He was given Keppra overnight. At time of my evaluation the patient was able to communicate even while he was having those shakes. It is possible that this may be some signs of tremors, delirium tremens this been going on. The viral screen has been negative. Likely his level was at 2.9. The blood gas was done overnight showed a pH of 7.36 with a pCO2 of 44 and pO2 of 61 and this was an FiO2 of 44%. The patient's WBC count at 15.3, it was 4.8 and platelet count of 270. Normal coagulation profile. BUN is at 40 with a creatinine of 0.5 and sodium levels at 134 with a potassium level of 4.8. LFTs are normal. UA is showing possible blood and +1 glucose. No signs of any infection. Alcohol level less than 10. The chest x-ray is consistent with pulmonary fibrosis and the patient has small lung volumes bilaterally and scattered pulmonary opacities favor scarring. An acute superimposed process cannot be completely ruled out. CAT scan of the brain that was done in the emergency showed no acute hemorrhage hydrocephalus or mass effects. At this point in time, the patient is on 5 L of oxygen by nasal cannula with a pulse ox of 100%. Hemodynamically stable. No reported fever. There was a temperature max of 100.2 during this current admission. Currently afebrile. Cardiac rhythm is sinus. On today's evaluation of 12/18/2023, the patient is arousable and awake and he is following some simple commands and answering questions. Overnight, the patient received a total of 4 mg of Ativan and the last dose was given to him at 9:21 P M. He is awake and alert and communicating. Extremely debilitated. Extremely weak. Has a weak cough. Oral mucosa remains dry. He was on oxygen and he was brought up to 13 L and he was weaned down to 10 L and I further cut down the oxygen flow to 5 L this morning. He is on normal saline at rate of 130 cc an hour. A repeat chest x-ray was done today and shows consolidation and chronic fibrotic changes. There is worsening of the consolidation airspace disease on the right compared to yesterday's chest x-ray. Suspected aspiration pneumonia. Based on that, the patient was covered with IV Zosyn and vancomycin. The white cell count today is at 14.1 with a hemoglobin 11.7 and a platelet count of 254. BUN is at 2 with a creatinine of 0.4 and sodium levels at 131 with a potassium level of 3.1. LFTs are within normal limits. The patient is extremely debilitated and weak. May benefit from a Dobbhoff catheter insertion. This may be needed at a later stage IV medication enteral feeding. Hemodynamically stable. Neurology on the case. No evidence of any seizures. He is maintained on Keppra. EEG is to follow. No neck stiffness. No fever at this point in time. Patient was reevaluated today on 12/19/2023, remains in the ICU, he is now on 5 L nasal cannula his mental status has significantly improved, remains on IV fluid at 100 cc/h, remains on Zosyn and vancomycin, overall the patient is steadily improving he feels better, nonetheless patient is chronically ill and his illness is mostly related to his severe interstitial lung disease/pulmonary fibrosis. WBC count today is 11.2 hemoglobin 12.4 basic metabolic profile is normal renal profile is normal. Chest x-ray continues to show bilateral interstitial lung disease, and dilated bowel loops Reevaluate today on 12/20/2023, patient remains in the ICU, now on 10 L nasal cannula, last night he was on BiPAP 12/6/40%. Remains marginal at best, patient has shortness of breath with any activity, his IV fluids at KVO he is on vancomycin and Zosyn, patient is quite anxious, and I recommend today Xanax 0.5 mg every 8 hours as needed, and I am also recommending patient to go to airvo as well as continue Solu-Medrol. Patient remains on antibiotics as per infectious disease on the case, I honestly believe the patient has worsening IPF, and prognosis is extremely poor and guarded. Today I had a long discussion with the patient about CODE STATUS, he wants to remain full code, and he was made aware that potentially if he ends up intubated mechanically ventilated the most likely chance that he would end up with a tracheostomy and PEG tube placement, and he clearly stated to me that he would like to see his grandchildren and there is one coming on the way as the patient remains full code at this point Reevaluate today on12/21/23, patient is feeling better today, he is down to 7 L high flow nasal cannula, seems to be less anxious, he is on anxiolytic medications/Xanax, breathing easier, CBC is relatively normal basic metabolic profile is normal blood sugar is normal, patient remains a bit tachypneic and tachycardic. But definitely improved compared to the last couple of days. Reevaluated today on 12/22/2023, patient is basically about the same as yesterday, remains tachypneic and tachycardic. Patient is still on steroids, antibiotics, bronchodilators, and he is still on 7 L high flow nasal cannula. Last night had to be placed on BiPAP 12/6/40% sitting at bedside. WBC is 15.5 hemoglobin 12.1 basic metabolic profile is normal bicarb 37 renal profile is normal, chest x-ray continues to show bilateral interstitial infiltrates. Mostly at the bases and peripherally Patient was reevaluated today on 12/23/2023, patient is feeling better today, breathing easier, continues to have episodes of aspiration and choking sensation when he is drinking fluids, I believe the patient will eventually most likely require a PEG tube placement. In the meantime his pulmonary status seems to be improving and responding to steroids and antibiotics as well as bronchodilators. He is down today to 4 L nasal cannula, and has a bedside BiPAP 12/6/40% that he uses at night. I plan to transfer the patient today out of the ICU to [facility] if his condition gets any worse I will bring him back to the ICU if requires intubation.WBC count is 10.9 hemoglobin 11.3, basic metabolic profile is normal and renal profile is normal Reevaluated today on 12/24/2023, patient is doing well, now on 2 L nasal cannula with O2 sats of 94% patient has a nasogastric tube in place, and he is being fed via nasogastric tube. Now I am beginning to suspect that his worsening hypoxic respiratory failure may be related to his underlying fibrosis with superimposed aspiration intermittently. Now that we are controlling the aspiration picture, his overall pulmonary status seems to be improving.WBC count is 9.2 hemoglobin 11.7 basic metabolic profile is normal renal profile is normal bicarb is 38 Objective - Vital Signs Vital signs: Vital Signs Temp 97.9 F 12/24/23 08:00 Pulse 104 H 12/24/23 08:00 Resp 16 12/24/23 08:00 BP 137/88 12/24/23 08:00 Pulse Ox 94 L 12/24/23 08:00 FiO2 40 12/23/23 07:00 Intake & Output 12/23/23 12/24/23 12/24/23 18:59 06:59 18:59 Intake Total 220 Output Total 200 577 150 Balance 20 -577 -150 Weight 51.4 kg Intake: IV 220 Piperacillin-Tazobactam 3 100 .375 gm In Sodium Chloride 0.9% 100 ml @ 25 mls/hr IVPB Q8HR [facility] Rx# :[id number] Sodium Chloride 0.9% 1, 120 000 ml @ 20 mls/hr IV . Q24H [facility] Rx#:[id number] Output: Urine 200 575 150 Stool 2 Other: Voiding Method Bedpan Bedpan Urinal Urinal # Bowel Movements 1 - Exam General: Reveals 63-year-on 2 L nasal cannula Skin: Skin is warm and dry and no rashes or lesions are noted. Eye: Pupils are equal, round and reactive to light, extra-ocular movements are intact; there is normal conjunctiva bilaterally. Ears, nose, mouth and throat: There are moist mucous membranes and no oral l esions. Neck: The neck is supple, there is no tenderness or JVD. Patient has a nasogastric tube in place to help Cardiovascular: Tachycardic, normal S1-S2,. No murmur, rub or gallop is appreciated. Respiratory: Velcro rales noted at the bases bilaterally. Gastrointestinal: Soft, non-distended, non-tender abdomen without masses or organomegaly noted. There is no rebound or guarding present. Bowel sounds are unremarkable. Back: There is no tenderness to palpation in the midline. There is no obvious deformity. Musculoskeletal: Significant muscle wasting is noted. Neurological: Alert oriented x 3 no gross focal deficit Psychiatric: Cooperative, appropriate mood & affect, normal judgment. - Labs CBC & Chem 7: 12/24/23 10:54 12/24/23 10:54 Labs: Abnormal Lab Results - Last 24 Hours (Table) 12/23/23 12/23/23 12/24/23 Range/Units 17:11 20:07 00:00 RBC (4.30-5.90) m/uL Hgb (13.0-17.5) gm/dL Hct (39.0-53.0) % MCV (80.0-100.0) fL Neutrophils # (1.3-7.7) k/uL Lymphocytes # (1.0-4.8) k/uL Chloride (98-107) mmol/L Carbon Dioxide (22-30) mmol/L BUN (9-20) mg/dL Glucose (74-99) mg/dL POC Glucose (mg/dL) 127 H 133 H 115 H (70-110) mg/dL 12/24/23 12/24/23 12/24/23 Range/Units 06:18 10:54 10:54 RBC 3.53 L (4.30-5.90) m/uL Hgb 11.7 L (13.0-17.5) gm/dL Hct 37.1 L (39.0-53.0) % MCV 105.2 H (80.0-100.0) fL Neutrophils # 7.9 H (1.3-7.7) k/uL Lymphocytes # 0.6 L (1.0-4.8) k/uL Chloride 94 L (98-107) mmol/L Carbon Dioxide 38 H (22-30) mmol/L BUN 24 H (9-20) mg/dL Glucose 145 H (74-99) mg/dL POC Glucose (mg/dL) 163 H (70-110) mg/dL 12/24/23 Range/Units 11:54 RBC (4.30-5.90) m/uL Hgb (13.0-17.5) gm/dL Hct (39.0-53.0) % MCV (80.0-100.0) fL Neutrophils # (1.3-7.7) k/uL Lymphocytes # (1.0-4.8) k/uL Chloride (98-107) mmol/L Carbon Dioxide (22-30) mmol/L BUN (9-20) mg/dL Glucose (74-99) mg/dL POC Glucose (mg/dL) 123 H (70-110) mg/dL Assessment and Plan Assessment: Impression acute on chronic hypoxic respiratory failure secondary to int erstitial lung disease Acute toxic metabolic encephalopathy Possible acute alcohol withdrawal is a possibility. Severe protein calorie malnutrition Idiopathic pulmonary fibrosis/interstitial lung disease mostly on 3 L nasal cannula at home Degenerative joint disease Extreme medical debility Difficulty swallowing and aspiration, may require PEG tube placement, in the meantime we will utilize his nasogastric tube for enteral feeding Recommendation: Continue oxygen and titrate accordingly, today on 2 L nasal cannula Continue Xanax every 8 hours Continue n.p.o. and feeds via nasogastric tube Continue hydration Continue empiric Zosyn, Continue steroids. Continue GI DVT prophylaxis CODE STATUS remains full Patient will need a PEG tube placement probably early next Will continue to follow Time with Patient: Less than 30
--- NOTE | 2023-12-24 16:26 | P.PN ---
Subjective Progress Note Date: 12/24/23 Principal diagnosis: Reason for follow-up is likely aspiration pneumonia Patient is a 63-year-old male with a past medical history significant for EtOH abuse DTs pulmonary fibrosis on home O2 recent admission to the hospital treated for DTs patient has been brought back to the hospital for evaluation of altered mental status and there was concern for possible aspirat ion pneumonia in this patient who did have a fever on presentation to the hospital. On today's visit that is 12/24/2023,the patient denies any fever or any chills, patient is breathing comfortably on 2 L nasal cannula oxygen, the patient denies chest pain shortness of breath and no worsening cough, patient denies abdominal pain, no nausea vomiting or diarrhea. Patient white count normal at 9.2, creatinine 0.72 Objective - Vital Signs Vital signs: Vital Signs Temp 97.9 F 12/24/23 08:00 Pulse 100 12/24/23 12:00 Resp 16 12/24/23 12:00 BP 154/86 12/24/23 12:00 Pulse Ox 93 L 12/24/23 12:00 FiO2 40 12/23/23 07:00 Intake & Output 12/23/23 12/24/23 12/24/23 18:59 06:59 18:59 Intake Total 220 Output Total 200 577 151 Balance 20 -577 -151 Weight 51.4 kg Intake: IV 220 Piperacillin-Tazobactam 3 100 .375 gm In Sodium Chloride 0.9% 100 ml @ 25 mls/hr IVPB Q8HR ИРИНА Rx# :[id number] Sodium Chloride 0.9% 1, 120 000 ml @ 20 mls/hr IV . Q24H ИРИНА Rx#:[id number] Output: Urine 200 575 150 Stool 2 1 Other: Voiding Method Bedpan Bedpan Urinal Urinal # Bowel Movements 1 - Exam GENERAL DESCRIPTION: Middle-age male lying in bed in no distress RESPIRATORY SYSTEM: Unlabored breathing , decreased breath sounds at bases HEART: S1 S2 regular rate and rhythm , ABDOMEN: Soft , no tenderness EXTREMITIES: No edema feet - Labs CBC & Chem 7: 12/24/23 10:54 12/24/23 10:54 Labs: Abnormal Lab Results - Last 24 Hours (Table) 12/23/23 12/23/23 12/24/23 Range/Units 17:11 20:07 00:00 RBC (4.30-5.90) m/uL Hgb (13.0-17.5) gm/dL Hct (39.0-53.0) % MCV (80.0-100.0) fL Neutrophils # (1.3-7.7) k/uL Lymphocytes # (1.0-4.8) k/uL Chloride (98-107) mmol/L Carbon Dioxide (22-30) mmol/L BUN (9-20) mg/dL Glucose (74-99) mg/dL POC Glucose (mg/dL) 127 H 133 H 115 H (70-110) mg/dL 12/24/23 12/24/23 12/24/23 Range/Units 06:18 10:54 10:54 RBC 3.53 L (4.30-5.90) m/uL Hgb 11.7 L (13.0-17.5) gm/dL Hct 37.1 L (39.0-53.0) % MCV 105.2 H (80.0-100.0) fL Neutrophils # 7.9 H (1.3-7.7) k/uL Lymphocytes # 0.6 L (1.0-4.8) k/uL Chloride 94 L (98-107) mmol/L Carbon Dioxide 38 H (22-30) mmol/L BUN 24 H (9-20) mg/dL Glucose 145 H (74-99) mg/dL POC Glucose (mg/dL) 163 H (70-110) mg/dL 12/24/23 Range/Units 11:54 RBC (4.30-5.90) m/uL Hgb (13.0-17.5) gm/dL Hct (39.0-53.0) % MCV (80.0-100.0) fL Neutrophils # (1.3-7.7) k/uL Lymphocytes # (1.0-4.8) k/uL Chloride (98-107) mmol/L Carbon Dioxide (22-30) mmol/L BUN (9-20) mg/dL Glucose (74-99) mg/dL POC Glucose (mg/dL) 123 H (70-110) mg/dL Assessment and Plan (1) Aspiration pneumonia Current Visit: Yes Status: Acute Code(s): J69.0 - PNEUMONITIS DUE TO INHALATION OF FOOD AND VOMIT SNOMED Code(s): 166204438 (2) Leukocytosis Current Visit: Yes Status: Acute Code(s): D72.829 - ELEVATED WHITE BLOOD CELL COUNT, UNSPECIFIED SNOMED Code(s): 922514198 (3) Thrush Current Visit: Yes Status: Acute Code(s): B37.0 - CANDIDAL STOMATITIS SNOMED Code(s): 98978595 Plan: 1patient presented to hospital with sepsis in this patient who did have fever tachycardia elevated white count concerning for possible aspiration pneumonitis underlying [employer] infection less likely cannot entirely excluded abdomen was soft on clinical examination and no evidence of any cellulitis urine has been negative 2-blood and sputum culture currently pending, the patient MRSA nasal screen is negative 3- repeat chest x-ray showing significant worsening on the right side concerning for aspiration pneumonia 4-patient remains to be afebrile white count has almost normalized 5-patient continue with the Zosyn and nystatin swish and swallow as long as the patient is able to tolerate it and currently waiting for a PEG tube placement Family at the bedside questions answered Dictation was produced using [employer] dictation software. please excuse any grammatical, word or spelling errors. Time with Patient: Less than 30
[2023-12-24 16:50] LABS: Glucose,Whole Blood 139 mg/dL (70-110)
--- NOTE | 2023-12-24 23:41 | P.PN ---
Subjective Progress Note Date: 12/24/23 Principal diagnosis: this a 63-year-old male with multiple medical problems. Patient is having silent aspiration. The patient has been consult for possible PEG tube placement. Objective - Vital Signs Vital signs: Vital Signs Temp 97.6 F 12/24/23 20:00 Pulse 102 H 12/24/23 20:00 Resp 16 12/24/23 20:00 BP 153/95 12/24/23 20:00 Pulse Ox 93 L 12/24/23 20:00 FiO2 40 12/23/23 07:00 Intake & Output 12/24/23 12/24/23 12/25/23 06:59 18:59 06:59 Output Total 577 151 1 Balance -577 -151 -1 Output: Urine 575 150 Stool 2 1 1 Other: Voiding Method Bedpan Bedpan Bedpan Urinal Urinal Urinal - Labs CBC & Chem 7: 12/24/23 10:54 12/24/23 10:54 Labs: Abnormal Lab Results - Last 24 Hours (Table) 12/24/23 12/24/23 12/24/23 Range/Units 00:00 06:18 10:54 RBC 3.53 L (4.30-5.90) m/uL Hgb 11.7 L (13.0-17.5) gm/dL Hct 37.1 L (39.0-53.0) % MCV 105.2 H (80.0-100.0) fL Neutrophils # 7.9 H (1.3-7.7) k/uL Lymphocytes # 0.6 L (1.0-4.8) k/uL Chloride (98-107) mmol/L Carbon Dioxide (22-30) mmol/L BUN (9-20) mg/dL Glucose (74-99) mg/dL POC Glucose (mg/dL) 115 H 163 H (70-110) mg/dL 12/24/23 12/24/23 12/24/23 Range/Units 10:54 11:54 16:48 RBC (4.30-5.90) m/uL Hgb (13.0-17.5) gm/dL Hct (39.0-53.0) % MCV (80.0-100.0) fL Neutrophils # (1.3-7.7) k/uL Lymphocytes # (1.0-4.8) k/uL Chloride 94 L (98-107) mmol/L Carbon Dioxide 38 H (22-30) mmol/L BUN 24 H (9-20) mg/dL Glucose 145 H (74-99) mg/dL POC Glucose (mg/dL) 123 H 139 H (70-110) mg/dL Assessment and Plan (1) Aspiration pneumonia Current Visit: Yes Status: Acute Code(s): J69.0 - PNEUMONITIS DUE TO INHALATION OF FOOD AND VOMIT SNOMED Code(s): 831175660 Plan: this a 63-year-old male with multiple medical problems. Patient is having silent aspiration. The patient has been consult for possible PEG tube placement. Plan PEG Next week by Dr. Dawson
[2023-12-24 23:45] LABS: Glucose,Whole Blood 140 mg/dL (70-110)
[2023-12-25 05:36] LABS: Glucose,Whole Blood 157 mg/dL (70-110)
--- NOTE | 2023-12-25 09:34 | P.PN ---
Subjective Progress Note Date: 12/25/23 patient is stable. There are no acute changes. Patient's eye scheduled for PEG tube placement tomorrow. Objective - Vital Signs Vital signs: Vital Signs Temp 98.0 F 12/25/23 09:20 Pulse 97 12/25/23 09:20 Resp 16 12/25/23 09:20 BP 168/112 12/25/23 09:20 Pulse Ox 94 L 12/25/23 09:20 FiO2 40 12/23/23 07:00 Intake & Output 12/24/23 12/25/23 12/25/23 18:59 06:59 18:59 Output Total 151 2 300 Balance -151 -2 -300 Weight 49.2 kg Output: Urine 150 300 Stool 1 2 Other: Voiding Method Bedpan Bedpan Urinal Urinal - Labs CBC & Chem 7: 12/24/23 10:54 12/24/23 10:54 Labs: Abnormal Lab Results - Last 24 Hours (Table) 12/24/23 12/24/23 12/24/23 Range/Units 10:54 10:54 11:54 RBC 3.53 L (4.30-5.90) m/uL Hgb 11.7 L (13.0-17.5) gm/dL Hct 37.1 L (39.0-53.0) % MCV 105.2 H (80.0-100.0) fL Neutrophils # 7.9 H (1.3-7.7) k/uL Lymphocytes # 0.6 L (1.0-4.8) k/uL Chloride 94 L (98-107) mmol/L Carbon Dioxide 38 H (22-30) mmol/L BUN 24 H (9-20) mg/dL Glucose 145 H (74-99) mg/dL POC Glucose (mg/dL) 123 H (70-110) mg/dL 12/24/23 12/24/23 12/25/23 Range/Units 16:48 23:44 05:34 RBC (4.30-5.90) m/uL Hgb (13.0-17.5) gm/dL Hct (39.0-53.0) % MCV (80.0-100.0) fL Neutrophils # (1.3-7.7) k/uL Lymphocytes # (1.0-4.8) k/uL Chloride (98-107) mmol/L Carbon Dioxide (22-30) mmol/L BUN (9-20) mg/dL Glucose (74-99) mg/dL POC Glucose (mg/dL) 139 H 140 H 157 H (70-110) mg/dL
--- NOTE | 2023-12-25 10:24 | P.PN ---
Subjective Progress Note Date: 12/25/23 63-year-old male with PMH of chronic hypoxic respiratory failure due to pulmonary fibrosis 3.5 L home O2, history of alcohol abuse, anxiety and depression presented to the ED for altered mentation and described as family as shaking all day. In the ED he was noted to be waxing and waning with episodes where he yells out his name and other times where he seems to be confused and shaking. Patient was loaded on Keppra and Ativan for what was thought to be seizure like activity. In the ED BP 85/57, HR 122, Tmax 101.5F, RR 28, 87% on RA. CBC WBC 13.3, Hg 12.8, Hct 38.5, MCV 101. Coag panel within normal limits. ABG pH 7.36, pCO2 44. CMP Na 134, bicarb 21, Cr 0.51, glu 100, Ca 8.1. Lactic acid 5.3. UA negative LE or nitrite. UDS positive for opiate, benzodiazepine and THC. Serum EtOH negative. Flu, RSV, COVID negative. TSH 2.43. Procal 0.09. B12 399. Ammonia 32. CRP 15. Brain CT negative for acute changes. CXR scattered parenchymal opacities favoring pulmonary fibrosis. EKG sinus tachycardia. Patient was started on Vanomcyin and Zosyn and admitted for PNA versus meningitis. Initially plans for LP. Neurology and ID consulted, EEG performed showed background slowing, disorganization, suggestive of mild to moderate encephalopathy. His mentation improved and LP was cancelled due to low probabi lity of meningitis. Keppra was titrated down. His altered mentation was thought to be related to possible EtOH withdrawal, aspiration PNA, and polypharmacy. MRSA nares negative, Vancomycin discontinued 12/19. Keppra weaned off 12/20. Patient continues to aspirate with feeds. Video swallow confirmed this on 12/21. Surgery consulted with plans for PEG on Tuesday. 12/23 Patient was seen and examined. Breathing better. Currently 98% on 2L. Currently with NG tube. Plans for PEG on Tuesday. CBC Hg 11.7 Hct 37.1 MCV 105.2. BMP Cl 94, bicarb 38, BUN 24, glu 145. 12/24 Patient was seen and examined. Reports uncontrolled back pain. Was taking MSIR 15 mg PO QID at home. BP 168/112 likely due to uncontrolled pain. Surgery note reviewed, plans for PEG tomorrow. General: non toxic, no distress, appears at stated age Derm: warm, dry Head: atraumatic, normocephalic, symmetric Eyes: EOMI, no lid lag, anicteric sclera Mouth: no lip lesion, mucus membranes moist Cardiovascular: S1S2 tachy, no murmur Lungs: Coarse BS bilateral, no rhonchi, no rales , no accessory muscle use Ext: no gross muscle atrophy, no edema, no contractures Neuro: no focal neuro deficits Psych: Alert, oriented, appropriate affect Based on my assessment of this patient, this patient meets a high complexity level of care. Patient has an acute diagnosis of sepsis due to aspiration PNA that poses a threat to life or bodily function. Acute metabolic encephalopathy: Multifactorial. EtOH abuse. Aspiration PNA. Polypharmacy. Weaned off Keppra. Seziure and Fall precautions. Neurology on board. Hypertensive urgency: Likely due to uncontrolled pain. Restart MSIR 15 mg PO QID. Start antihypertensive medication if continues to be uncontrolled. Sepsis due to aspiration PNA: BCx and Sputum Cx prelim negative. Continue Zosyn 3.375g IV TID (D9). Telemetry monitoring. NS at 20 cc/hr. Plans for PEG on Tuesday. Surgery, ID and Pulmonary on board. EtOH abuse with DTs: Ativan PRN for CIWA protocol. Macrocytic anemia: Likely due to EtOH abuse. Acute on chronic hypoxic respiratory failure: Currently on 2L HFNC. DuoNeb PRN for SOB/wheezing. Pulmonary fibrosis CODE STATUS: FULL CODE DVT Prophylaxis: Heparin SQ. GI Prophylaxis: Protonix IV Designated medical POA if patient is not able to make medical decisions for themselves: I have reviewed the following ergonomics consultant notes: Surgery, Pulmonary, Neurology, ID note. I have reviewed the results of the following tests: CBC, BMP from 12/23. I have ordered the following tests: I have discussed the care of this patient with the following independent historian: AALIYAH regarding elevated BP. I have independently interpreted the following test below: I have discussed the management of this patient with the following physician: Objective - Vital Signs Vital signs: Vital Signs Temp 98.0 F 12/25/23 09:20 Pulse 97 12/25/23 09:20 Resp 16 12/25/23 09:20 BP 168/112 12/25/23 09:20 Pulse Ox 94 L 03/31/24 09:20 FiO2 40 12/23/23 07:00 Intake & Output 12/24/23 12/25/23 12/25/23 18:59 06:59 18:59 Output Total 151 2 300 Balance -151 -2 -300 Weight 49.2 kg Output: Urine 150 300 Stool 1 2 Other: Voiding Method Bedpan Bedpan Urinal Urinal - Labs CBC & Chem 7: 12/24/23 10:54 12/24/23 10:54 Labs: Abnormal Lab Results - Last 24 Hours (Table) 12/24/23 12/24/23 12/24/23 Range/Units 10:54 10:54 11:54 RBC 3.53 L (4.30-5.90) m/uL Hgb 11.7 L (13.0-17.5) gm/dL Hct 37.1 L (39.0-53.0) % MCV 105.2 H (80.0-100.0) fL Neutrophils # 7.9 H (1.3-7.7) k/uL Lymphocytes # 0.6 L (1.0-4.8) k/uL Chloride 94 L (98-107) mmol/L Carbon Dioxide 38 H (22-30) mmol/L BUN 24 H (9-20) mg/dL Glucose 145 H (74-99) mg/dL POC Glucose (mg/dL) 123 H (70-110) mg/dL 12/24/23 12/24/23 12/25/23 Range/Units 16:48 23:44 05:34 RBC (4.30-5.90) m/uL Hgb (13.0-17.5) gm/dL Hct (39.0-53.0) % MCV (80.0-100.0) fL Neutrophils # (1.3-7.7) k/uL Lymphocytes # (1.0-4.8) k/uL Chloride (98-107) mmol/L Carbon Dioxide (22-30) mmol/L BUN (9-20) mg/dL Glucose (74-99) mg/dL POC Glucose (mg/dL) 139 H 140 H 157 H (70-110) mg/dL
[2023-12-25 11:31] LABS: Glucose,Whole Blood 181 mg/dL (70-110)
[2023-12-25] MEDS: MORPHINE SULFATE IR 15 MG TABLET PO SCH (11:39)
--- NOTE | 2023-12-25 14:25 | P.PN ---
Subjective Progress Note Date: 12/25/23 Principal diagnosis: Acute metabolic encephalopathy and acute on chronic hypoxic respiratory failure secondary to IPF. This is a 63-year-old male patient was brought into the ICU because of altered mentation. The patient has history of advanced pulmonary fibrosis. The patient has been diagnosed having IPF few years back and the patient has been treated with Ofev and he has severe restrictive lung disease with an FVC of 45% predicted and is also oxygen dependent at 3 L/min nasal cannula. He has history of alcoholism and the patient is chronically debilitated. He drinks alcohol excessively approximately 7 beers a day and he also drinks 1/5 of peppermint schnapps every day. The patient was in the hospital back in October 2023 and at that time the patient sustained acute hypoxic respiratory failure and required intubation mechanical ventilation. Note that during his hospital stay, the patient also sustained some alcohol withdrawal symptoms. He was ultimately stabilized and he was discharged to be readmitted yesterday due to diminished level of consciousness, increased shakiness, confusion, unable to communicate and unable to provide appropriate history. On examination, the patient r shows signs of significant debility, muscle wasting and significant loss of total body muscle mass and malnutrition and deconditioning. The patient was moved to the intensive care unit. Earlier this morning, I had a sitter at the bedside and I was able to briefly communicate with the patient. Nevertheless, he was obviously encephalopathic. He was able to maintain eye contact. He was saying few words and following simple commands and following that and the patient became more agitated he was given Ativan and he became more rested. Obviously, the shakiness is not a sign of seizure at this point in time. He was given Keppra overnight. At time of my evaluation the patient was able to communicate even while he was having those shakes. It is possible that this may be some signs of tremors, delirium tremens this been going on. The viral screen has been negative. Likely his level was at 2.9. The blood gas was done overnight showed a pH of 7.36 with a pCO2 of 44 and pO2 of 61 and this was an FiO2 of 44%. The patient's WBC count at 15.3, it was 4.8 and platelet count of 270. Normal coagulation profile. BUN is at 40 with a creatinine of 0.5 and sodium levels at 134 with a potassium level of 4.8. LFTs are normal. UA is showing possible blood and +1 glucose. No signs of any infection. Alcohol level less than 10. The chest x-ray is consistent with pulmonary fibrosis and the patient has small lung volumes bilaterally and scattered pulmonary opacities favor scarring. An acute superimposed process cannot be completely ruled out. CAT scan of the brain that was done in the emergency showed no acute hemorrhage hydrocephalus or mass effects. At this point in time, the patient is on 5 L of oxygen by nasal cannula with a pulse ox of 100%. Hemodynamically stable. No reported fever. There was a temperature max of 100.2 during this current admission. Currently afebrile. Cardiac rhythm is sinus. On today's evaluation of 12/18/2023, the patient is arousable and awake and he is following some simple commands and answering questions. Overnight, the patient received a total of 4 mg of Ativan and the last dose was given to him at 9:21 P M. He is awake and alert and communicating. Extremely debilitated. Extremely weak. Has a weak cough. Oral mucosa remains dry. He was on oxygen and he was brought up to 13 L and he was weaned down to 10 L and I further cut down the oxygen flow to 5 L this morning. He is on normal saline at rate of 130 cc an hour. A repeat chest x-ray was done today and shows consolidation and chronic fibrotic changes. There is worsening of the consolidation airspace disease on the right compared to yesterday's chest x-ray. Suspected aspiration pneumonia. Based on that, the patient was covered with IV Zosyn and vancomycin. The white cell count today is at 14.1 with a hemoglobin 11.7 and a platelet count of 254. BUN is at 2 with a creatinine of 0.4 and sodium levels at 131 with a potassium level of 3.1. LFTs are within normal limits. The patient is extremely debilitated and weak. May benefit from a Dobbhoff catheter insertion. This may be needed at a later stage IV medication enteral feeding. Hemodynamically stable. Neurology on the case. No evidence of any seizures. He is maintained on Keppra. EEG is to follow. No neck stiffness. No fever at this point in time. Patient was reevaluated today on 12/19/2023, remains in the ICU, he is now on 5 L nasal cannula his mental status has significantly improved, remains on IV fluid at 100 cc/h, remains on Zosyn and vancomycin, overall the patient is steadily improving he feels better, nonetheless patient is chronically ill and his illness is mostly related to his severe interstitial lung disease/pulmonary fibrosis. WBC count today is 11.2 hemoglobin 12.4 basic metabolic profile is normal renal profile is normal. Chest x-ray continues to show bilateral interstitial lung disease, and dilated bowel loops Reevaluate today on 12/20/2023, patient remains in the ICU, now on 10 L nasal cannula, last night he was on BiPAP 12/6/40%. Remains marginal at best, patient has shortness of breath with any activity, his IV fluids at KVO he is on vancomycin and Zosyn, patient is quite anxious, and I recommend today Xanax 0.5 mg every 8 hours as needed, and I am also recommending patient to go to airvo as well as continue Solu-Medrol. Patient remains on antibiotics as per infectious disease on the case, I honestly believe the patient has worsening IPF, and prognosis is extremely poor and guarded. Today I had a long discussion with the patient about CODE STATUS, he wants to remain full code, and he was made aware that potentially if he ends up intubated mechanically ventilated the most likely chance that he would end up with a tracheostomy and PEG tube placement, and he clearly stated to me that he would like to see his grandchildren and there is one coming on the way as the patient remains full code at this point Reevaluate today on12/21/23, patient is feeling better today, he is down to 7 L high flow nasal cannula, seems to be less anxious, he is on anxiolytic medications/Xanax, breathing easier, CBC is relatively normal basic metabolic profile is normal blood sugar is normal, patient remains a bit tachypneic and tachycardic. But definitely improved compared to the last couple of days. Reevaluated today on 12/22/2023, patient is basically about the same as yesterday, remains tachypneic and tachycardic. Patient is still on steroids, antibiotics, bronchodilators, and he is still on 7 L high flow nasal cannula. Last night had to be placed on BiPAP 12/6/40% sitting at bedside. WBC is 15.5 hemoglobin 12.1 basic metabolic profile is normal bicarb 37 renal profile is normal, chest x-ray continues to show bilateral interstitial infiltrates. Mostly at the bases and peripherally Patient was reevaluated today on 12/23/2023, patient is feeling better today, breathing easier, continues to have episodes of aspiration and choking sensation when he is drinking fluids, I believe the patient will eventually most likely require a PEG tube placement. In the meantime his pulmonary status seems to be improving and responding to steroids and antibiotics as well as bronchodilators. He is down today to 4 L nasal cannula, and has a bedside BiPAP 12/6/40% that he uses at night. I plan to transfer the patient today out of the ICU to [facility] if his condition gets any worse I will bring him back to the ICU if requires intubation.WBC count is 10.9 hemoglobin 11.3, basic metabolic profile is normal and renal profile is normal Reevaluated today on 12/24/2023, patient is doing well, now on 2 L nasal cannula with O2 sats of 94% patient has a nasogastric tube in place, and he is being fed via nasogastric tube. Now I am beginning to suspect that his worsening hypoxic respiratory failure may be related to his underlying fibrosis with superimposed aspiration intermittently. Now that we are controlling the aspiration picture, his overall pulmonary status seems to be improving.WBC count is 9.2 hemoglobin 11.7 basic metabolic profile is normal renal profile is normal bicarb is 38 Reevaluated today on 12/25/2023, patient continues to do well, he is now on 3 L nasal cannula with O2 sats of 98%,, and now in retrospect I believe the patient is developing chronic aspiration pneumonia with underlying interstitial lung disease. His overall picture has significantly improved after we placed a nasogastric tube and made the patient n.p.o. Patient is scheduled for PEG tube placement tomorrow, and eventually needs to be on enteral feeding via PEG tube only. Patient has been chronically aspirating most likely. WBC count today is 9.2 hemoglobin 11.7 basic metabolic profile is normal renal profile is normal Objective - Vital Signs Vital signs: Vital Signs Temp 98.0 F 12/25/23 09:20 Pulse 111 H 12/25/23 11:37 Resp 16 12/25/23 11:37 BP 160/110 12/25/23 11:37 Pulse Ox 98 12/25/23 11:37 FiO2 40 12/23/23 07:00 Intake & Output 12/24/23 12/25/23 12/25/23 18:59 06:59 18:59 Output Total 151 2 650 Balance -151 -2 -650 Weight 49.2 kg Output: Urine 150 650 Stool 1 2 Other: Voiding Method Bedpan Bedpan Bedpan Urinal Urinal Urinal - Exam General: Reveals 63-year-on 2 L nasal cannula, Skin: Skin is warm and dry and no rashes or lesions are noted. Eye: Pupils are equal, round and reactive to light, extra-ocular movements are intact; there is normal conjunctiva bilaterally. Ears, nose, mouth and throat: There are moist mucous membranes and no oral lesions. Nasogastric tube in place for Neck: The neck is supple, there is no tenderness or JVD. Patient has a nasogastric tube in place to help Cardiovascular: Tachycardic, normal S1-S2,. No murmur, rub or gallop is appreciated. Respiratory: Velcro rales noted at the bases bilaterally. Gastrointestinal: Soft, non-distended, non-tender abdomen without masses or organomegaly noted. There is no rebound or guarding present. Bowel sounds are unremarkable. Back: There is no tenderness to palpation in the midline. There is no obvious deformity. Musculoskeletal: Significant muscle wasting is noted. Neurological: Alert oriented x 3 no gross focal deficit Psychiatric: Cooperative, appropriate mood & affect, normal judgment. - Labs CBC & Chem 7: 12/24/23 10:54 12/24/23 10:54 Labs: Abnormal Lab Results - Last 24 Hours (Table) 12/24/23 12/24/23 12/25/23 Range/Units 16:48 23:44 05:34 POC Glucose (mg/dL) 139 H 140 H 157 H (70-110) mg/dL 12/25/23 Range/Units 11:30 POC Glucose (mg/dL) 181 H (70-110) mg/dL Assessment and Plan Assessment: Impression acute on chronic hypoxic respiratory failure secondary to interstitial lung disease Acute toxic metabolic encephalopathy Possible acute alcohol withdrawal is a possibility. Severe protein calorie malnutrition Idiopathic pulmonary fibrosis/interstitial lung disease mostly on 3 L nasal cannula at home Degenerative joint disease Extreme medical debility Difficulty swallowing and aspiration, PEG tube is to be placed tomorrow, in the meantime continue nasogastric tube and feeding via nasogastric tube Recommendation: Continue oxygen and titrate accordingly, today on 3 L nasal cannula Continue Xanax every 8 hours Continue n.p.o. and feeds via nasogastric tube, nasogastric tube to be placed tomorrow Continue hydration Continue empiric Zosyn, Continue steroids. Continue GI DVT prophylaxis CODE STATUS remains full Will continue to follow Time with Patient: Less than 30
--- NOTE | 2023-12-25 16:05 | P.PN ---
Subjective Progress Note Date: 12/25/23 Principal diagnosis: Reason for follow-up is likely aspiration pneumonia Patient is a 63-year-old male with a past medical history significant for EtOH abuse DTs pulmonary fibrosis on home O2 recent admission to the hospital treated for DTs patient has been brought back to the hospital for evaluation of altered mental status and there was concern for possible aspirat ion pneumonia in this patient who did have a fever on presentation to the hospital. On today's visit that is 12/25/2023,the patient remains to be afebrile, patient is on 3 L nasal cannula supplemental oxygen and denies any shortness of breath no chest pain or worsening cough.Patient denies having any nausea or vomiting, no abdominal pain and no diarrhea has been reported. Patient did have NG tube placed for feeding currently waiting for PEG tube placement tomorrow No new labs has been obtained today Objective - Vital Signs Vital signs: Vital Signs Temp 97.9 F 12/25/23 15:44 Pulse 104 H 12/25/23 15:44 Resp 16 12/25/23 15:44 BP 167/110 12/25/23 15:44 Pulse Ox 98 12/25/23 15:44 FiO2 40 12/23/23 07:00 Intake & Output 12/24/23 12/25/23 12/25/23 18:59 06:59 18:59 Intake Total 350 Output Total 151 2 650 Balance -151 -2 -300 Weight 49.2 kg Intake: Tube Feeding 350 Output: Urine 150 650 Stool 1 2 Other: Voiding Method Bedpan Bedpan Bedpan Urinal Urinal Urinal - Exam GENERAL DESCRIPTION: Middle-age male lying in bed in no distress RESPIRATORY SYSTEM: Unlabored breathing , decreased breath sounds at bases HEART: S1 S2 regular rate and rhythm , ABDOMEN: Soft , no tenderness EXTREMITIES: No edema feet - Labs CBC & Chem 7: 12/24/23 10:54 12/24/23 10:54 Labs: Abnormal Lab Results - Last 24 Hours (Table) 12/24/23 12/24/23 12/25/23 Range/Units 16:48 23:44 05:34 POC Glucose (mg/dL) 139 H 140 H 157 H (70-110) mg/dL 12/25/23 Range/Units 11:30 POC Glucose (mg/dL) 181 H (70-110) mg/dL Assessment and Plan (1) Aspiration pneumonia Current Visit: Yes Status: Acute Code(s): J69.0 - PNEUMONITIS DUE TO INHALATION OF FOOD AND VOMIT SNOMED Code(s): 933290906 (2) Leukocytosis Current Visit: Yes Status: Acute Code(s): D72.829 - ELEVATED WHITE BLOOD CELL COUNT, UNSPECIFIED SNOMED Code(s): 187421992 (3) Thrush Current Visit: Yes Status: Acute Code(s): B37.0 - CANDIDAL STOMATITIS SNOMED Code(s): 57424918 Plan: 1patient presented to hospital with sepsis in this patient who did have fever tachycardia elevated white count concerning for possible aspiration 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 please excuse any grammatical, word or spelling errors. Time with Patient: Less than 30
[2023-12-25] MEDS: PIPERACILLIN-TAZOBACTAM 3.375 GM in SODIUM CHLORIDE 0.9% 100 ML IVPB SCH (17:55)
[2023-12-25 18:02] LABS: Glucose,Whole Blood 163 mg/dL (70-110)
[2023-12-25 23:54] LABS: Glucose,Whole Blood 114 mg/dL (70-110)
[2023-12-26 06:27] LABS: Glucose,Whole Blood 156 mg/dL (70-110)
--- NOTE | 2023-12-26 11:23 | P.PN ---
Subjective Progress Note Date: 12/26/23 63-year-old male with PMH of chronic hypoxic respiratory failure due to pulmonary fibrosis 3.5 L home O2, history of alcohol abuse, anxiety and depression presented to the ED for altered mentation and described as family as shaking all day. In the ED he was noted to be waxing and waning with episodes where he yells out his name and other times where he seems to be confused and shaking. Patient was loaded on Keppra and Ativan for what was thought to be seizure like activity. In the ED BP 85/57, HR 122, Tmax 101.5F, RR 28, 87% on RA. CBC WBC 13.3, Hg 12.8, Hct 38.5, MCV 101. Coag panel within normal limits. ABG pH 7.36, pCO2 44. CMP Na 134, bicarb 21, Cr 0.51, glu 100, Ca 8.1. Lactic acid 5.3. UA negative LE or nitrite. UDS positive for opiate, benzodiazepine and THC. Serum EtOH negative. Flu, RSV, COVID negative. TSH 2.43. Procal 0.09. B12 399. Ammonia 32. CRP 15. Brain CT negative for acute changes. CXR scattered parenchymal opacities favoring pulmonary fibrosis. EKG sinus tachycardia. Patient was started on Vanomcyin and Zosyn and admitted for PNA versus meningitis. Initially plans for LP. Neurology and ID consulted, EEG performed showed background slowing, disorganization, suggestive of mild to moderate encephalopathy. His mentation improved and LP was cancelled due to low probabi lity of meningitis. Keppra was titrated down. His altered mentation was thought to be related to possible EtOH withdrawal, aspiration PNA, and polypharmacy. MRSA nares negative, Vancomycin discontinued 12/19. Keppra weaned off 12/20. Patient continues to aspirate with feeds. Video swallow confirmed this on 12/21. Surgery consulted with plans for PEG on Tuesday. 12/23 Patient was seen and examined. Breathing better. Currently 98% on 2L. Currently with NG tube. Plans for PEG on Tuesday. CBC Hg 11.7 Hct 37.1 MCV 105.2. BMP Cl 94, bicarb 38, BUN 24, glu 145. 12/24 Patient was seen and examined. Reports uncontrolled back pain. Was taking MSIR 15 mg PO QID at home. BP 168/112 likely due to uncontrolled pain. Surgery note reviewed, plans for PEG tomorrow. 12/25 Patient was seen and examined. Plans for PEG tube today. BP slightly improved to 153/95. Patient to be started on Losartan 50 mg PO QD for better BP control. General: non toxic, no distress, appears at stated age Derm: warm, dry Head: atraumatic, normocephalic, symmetric Eyes: EOMI, no lid lag, anicteric sclera Mouth: no lip lesion, mucus membranes moist Cardiovascular: S1S2 tachy, no murmur Lungs: Coarse BS bilateral, no rhonchi, no rales , no accessory muscle use Ext: no gross muscle atrophy, no edema, no contractures Neuro: no focal neuro deficits Psych: Alert, oriented, appropriate affect Based on my assessment of this patient, this patient meets a high complexity level of care. Patient has an acute diagnosis of sepsis due to aspiration PNA that poses a threat to life or bodily function. Acute metabolic encephalopathy: Multifactorial. EtOH abuse. Aspiration PNA. Polypharmacy. Weaned off Keppra. Seziure and Fall precautions. Neurology on board. Hypertensive urgency: Likely due to uncontrolled pain. Restart MSIR 15 mg PO QID. Start Losartan 50 mg PO QD. Sepsis due to aspiration PNA: BCx and Sputum Cx prelim negative. Continue Zosyn 3.375g IV TID (D10). Telemetry monitoring. NS at 20 cc/hr. Plans for PEG today. Surgery, ID and Pulmonary on board. EtOH abuse with DTs: Ativan PRN for CIWA protocol. Macrocytic anemia: Likely due to EtOH abuse. Acute on chronic hypoxic respiratory failure: Currently on 2L HFNC. DuoNeb PRN for SOB/wheezing. Pulmonary fibrosis CODE STATUS: FULL CODE DVT Prophylaxis: Heparin SQ. GI Prophylaxis: Protonix IV Designated medical POA if patient is not able to make medical decisions for themselves: I have reviewed the following database reporting consultant notes: Surgery, Pulmonary, Neurology, ID note. I have reviewed the results of the following tests: I have ordered the following tests: CBC and BMP for tomorrow morning. I have discussed the care of this patient with the following independent historian: I have independently interpreted the following test below: I have discussed the management of this patient with the following physician: Objective - Vital Signs Vital signs: Vital Signs Temp 97.8 F 12/26/23 04:00 Pulse 100 12/26/23 04:00 Resp 18 12/26/23 04:00 BP 153/95 12/26/23 04:00 Pulse Ox 100 12/26/23 08:15 FiO2 40 12/23/23 07:00 Intake & Output 12/25/23 12/26/23 12/26/23 18:59 06:59 18:59 Intake Total 350 Output Total 650 200 Balance -300 -200 Weight 52 kg Intake: Tube Feeding 350 Output: Urine 650 200 Other: Voiding Method Bedpan Bedpan Urinal Urinal # Voids 1 # Bowel Movements 1 - Labs CBC & Chem 7: 12/24/23 10:54 12/24/23 10:54 Labs: Abnormal Lab Results - Last 24 Hours (Table) 12/25/23 12/25/23 12/25/23 Range/Units 11:30 18:01 23:52 POC Glucose (mg/dL) 181 H 163 H 114 H (70-110) mg/dL 12/26/23 Range/Units 06:26 POC Glucose (mg/dL) 156 H (70-110) mg/dL
[2023-12-26 11:27] LABS: Glucose,Whole Blood 119 mg/dL (70-110)
[2023-12-26] MEDS ORDERED: LIDOCAINE 1% INJ 10MG/ML (20 ML MDV) ONE (12:42)
[2023-12-26] MEDS ORDERED: PROPOFOL 10 MG/ML 20 ML VIAL IV ONE (12:42)
[2023-12-26] MEDS: IV FLUID CONTINUATION 900 ML IV ONE (13:10)
[2023-12-26 13:30] VITALS: BMI 17.4
--- NOTE | 2023-12-26 13:37 | P.OP ---
Date of Procedure: 12/26/23 Preoperative Diagnosis: protein calorie malnutrition Postoperative Diagnosis: protein calorie malnutrition Procedure(s) Performed: EGD with PEG tube placement Anesthesia: MAC Surgeon: Samir Cramer Pathology: none sent Condition: stable Disposition: PACU Description of Procedure: the patient received IV sedation. Next the gastroscope placed oropharynx passed in the esophagus and stomach. There is no evidence of any outlet obstruction. Stomach was insufflated with air. The light reflux seen the anterior abdominal wall. The abdomen was prepped and draped usual fashion. The skin was incised. And the needles placed and stomach under direct visualization. The needle was snared. And the wires placed through the needle and the wire was snared and brought the oropharynx. The PEG tube was placed over top the wire brought down to the stomach. The PEG tube was secured. At the 3 cm vane. The one-piece bolster was used. Patient tolerated procedure well.
--- NOTE | 2023-12-26 13:50 | XR ---
EXAMINATION TYPE: XR chest 1V portable DATE OF EXAM: 12/22/2023 5:10 AM CLINICAL INDICATION:Male, 63 years old with history of left lower pneumonia, fluid overload; [facility] COMPARISON: Chest radiographs from 12/21/2023 TECHNIQUE: XR chest 1V portable Frontal view of the chest. FINDINGS: Lungs/Pleura: Multiple airspace disease in the left lobe is still present. No definite pleural effusi on. No pneumothorax. Pulmonary vascularity: Pulmonary venous congestion findings. Unchanged. Heart/mediastinum: Cardiomediastinal silhouette is unremarkable. Musculoskeletal: No acute osseous pathology. Other findings: Bowel with excessive gas underlies the right and left hemidiaphragm. Lines/Tubes: None. IMPRESSION: Left lower lobe airspace disease and generalized pulmonary venous congestion similar compared to patricia rice
[2023-12-26] MEDS: LOSARTAN 50 MG TAB PO SCH (14:37)
--- NOTE | 2023-12-26 14:43 | P.PN ---
Subjective Progress Note Date: 12/26/23 This is a 63-year-old male patient was brought into the ICU because of altered mentation. The patient has history of advanced pulmonary fibrosis. The patient has been diagnosed having IPF few years back and the patient has been treated with Ofev and he has severe restrictive lung disease with an FVC of 45% predicted and is also oxygen dependent at 3 L/min nasal cannula. He has history of alcoholism and the patient is chronically debilitated. He drinks alcohol excessively approximately 7 beers a day and he also drinks 1/5 of peppermint schnapps every day. The patient was in the hospital back in October 2023 and at that time the patient sustained acute hypoxic respiratory failure and required intubation mechanical ventilation. Note that during his hospital stay, the patient also sustained some alcohol withdrawal symptoms. He was ultimately stabilized and he was discharged to be readmitted yesterday due to diminished level of consciousness, increased shakiness, confusion, unable to communicate and unable to provide appropriate history. On examination, the patient r shows signs of significant debility, muscle wasting and significant loss of total body muscle mass and malnutrition and deconditioning. The patient was moved to the intensive care unit. Earlier this morning, I had a sitter at the bedside and I was able to briefly communicate with the patient. Nevertheless, he was obviously encephalopathic. He was able to maintain eye contact. He was saying few words and following simple commands and following that and the patient became more agitated he was given Ativan and he became more rested. Obviously, the shakiness is not a sign of seizure at this point in time. He was given Keppra overnight. At time of my evaluation the patient was able to communicate even while he was having those shakes. It is possible that this may be some signs of tremors, delirium tremens this been going on. The viral screen has been negative. Likely his level was at 2.9. The blood gas was done overnight showed a pH of 7.36 with a pCO2 of 44 and pO2 of 61 and this was an FiO2 of 44%. The patient's WBC count at 15.3, it was 4.8 and platelet count of 270. Normal coagulation profile. BUN is at 40 with a creatinine of 0.5 and sodium levels at 134 with a potassium level of 4.8. LFTs are normal. UA is showing possible blood and +1 glucose. No signs of any infection. Alcohol level less than 10. The chest x-ray is consistent with pulmonary fibrosis and the patient has small lung volumes bilaterally and scattered pulmonary opacities favor scarring. An acute superimposed process cannot be completely ruled out. CAT scan of the brain that was done in the emergency showed no acute hemorrhage hydrocephalus or mass effects. At this point in time, the patient is on 5 L of oxygen by nasal cannula with a pulse ox of 100%. Hemodynamically stable. No reported fever. There was a temperature max of 100.2 during this current admission. Currently afebrile. Cardiac rhythm is sinus. On today's evaluation of 12/18/2023, the patient is arousable and awake and he is following some simple commands and answering questions. Overnight, the patient received a total of 4 mg of Ativan and the last dose was given to him at 9:21 PM. He is awake and alert and communicating. Extremely debilitated. Extremely weak. Has a weak cough. Oral mucosa remains dry. He was on oxygen and he was brought up to 13 L and he was weaned down to 10 L and I further cut down the oxygen flow to 5 L this morning. He is on normal saline at rate of 130 cc an hour. A repeat chest x-ray was done today and shows consolidation and chronic fibrotic changes. There is worsening of the consolidation airspace disease on the right compared to yesterday's chest x-ray. Suspected aspiration pneumonia. Based on that, the patient was covered with IV Zosyn and vancomycin. The white cell count today is at 14.1 with a hemoglobin 11.7 and a platelet count of 254. BUN is at 2 with a creatinine of 0.4 and sodium levels at 131 with a potassium level of 3.1. LFTs are within normal limits. The patient is extremely debilitated and weak. May benefit from a Dobbhoff catheter insertion. This may be needed at a later stage IV medication enteral feeding. Hemodynamically stable. Neurology on the case. No evidence of any seizures. He is maintained on Keppra. EEG is to follow. No neck stiffness. No fever at this point in time. Patient was reevaluated today on 12/19/2023, remains in the ICU, he is now on 5 L nasal cannula his mental status has significantly improved, remains on IV fluid at 100 cc/h, remains on Zosyn and vancomycin, overall the patient is steadily improving he feels better, nonetheless patient is chronically ill and his illness is mostly related to his severe interstitial lung disease/pulmonary fibrosis. WBC count today is 11.2 hemoglobin 12.4 basic metabolic profile is normal renal profile is normal. Chest x-ray continues to show bilateral interstitial lung disease, and dilated bowel loops Reevaluate today on 12/20/2023, patient remains in the ICU, now on 10 L nasal cannula, last night he was on BiPAP 12/6/40%. Remains marginal at best, patient has shortness of breath with any activity, his IV fluids at KVO he is on vancomycin and Zosyn, patient is quite anxious, and I recommend today Xanax 0.5 mg every 8 hours as needed, and I am also recommending patient to go to airvo as well as continue Solu-Medrol. Patient remains on antibiotics as per infectious disease on the case, I honestly believe the patient has worsening IPF, and prognosis is extremely poor and guarded. Today I had a long discussion with the patient about CODE STATUS, he wants to remain full code, and he was made aware that potentially if he ends up intubated mechanically ventilated the most likely chance that he would end up with a tracheostomy and PEG tube placement, and he c learly stated to me that he would like to see his grandchildren and there is one coming on the way as the patient remains full code at this point Reevaluate today on12/21/23, patient is feeling better today, he is down to 7 L high flow nasal cannula, seems to be less anxious, he is on anxiolytic med ications/Xanax, breathing easier, CBC is relatively normal basic metabolic profile is normal blood sugar is normal, patient remains a bit tachypneic and tachycardic. But definitely improved compared to the last couple of days. Reevaluated today on 12/22/2023, patient is basically about the same as yesterday, remains tachypneic and tachycardic. Patient is still on steroids, antibiotics, bronchodilators, and he is still on 7 L high flow nasal cannula. Last night had to be placed on BiPAP 12/6/40% sitting at bedside. WBC is 15.5 hemoglobin 12.1 basic metabolic profile is normal bicarb 37 renal profile is normal, chest x-ray continues to show bilateral interstitial infiltrates. Mostly at the bases and peripherally Patient was reevaluated today on 12/23/2023, patient is feeling better today, breathing easier, continues to have episodes of aspiration and choking sensation when he is drinking fluids, I believe the patient will eventually most likely require a PEG tube placement. In the meantime his pulmonary status seems to be improving and responding to steroids and antibiotics as well as bronchodilators. He is down today to 4 L nasal cannula, and has a bedside BiPAP 12/6/40% that he uses at night. I plan to transfer the patient today out of the ICU to [facility] if his condition gets any worse I will bring him back to the ICU if requires intubation.WBC count is 10.9 hemoglobin 11.3, basic metabolic profile is normal and renal profile is normal Reevaluated today on 12/24/2023, patient is doing well, now on 2 L nasal cannula with O2 sats of 94% patient has a nasogastric tube in place, and he is being fed via nasogastric tube. Now I am beginning to suspect that his worsening hypoxic respiratory failure may be related to his underlying fibrosis with superimposed aspiration intermittently. Now that we are controlling the aspiration picture, his overall pulmonary status seems to be improving.WBC count is 9.2 hemoglobin 11.7 basic metabolic profile is normal renal profile is normal bicarb is 38 Reevaluated today on 12/25/2023, patient continues to do well, he is now on 3 L nasal cannula with O2 sats of 98%,, and now in retrospect I believe the patient is developing chronic aspiration pneumonia with underlying interstitial lung disease. His overall picture has significantly improved after we placed a nasogastric tube and made the patient n.p.o. Patient is scheduled for PEG tube placement tomorrow, and eventually needs to be on enteral feeding via PEG tube only. Patient has been chronically aspirating most likely. WBC count today is 9.2 hemoglobin 11.7 basic metabolic profile is normal renal profile is normal The patient is seen today December 26, 2023 in follow-up on the selective care unit. He is currently resting comfortably in bed. Awake and alert in no acute distress. He is maintaining good O2 saturations in the 90s on 3 L/min per nasal cannula. He remains NPO. Plan is for PEG tube placement today. Glucose 119. He remains on bronchodilators, steroids, Zosyn. Heparin for DVT prophylaxis. Objective - Vital Signs Vital signs: Vital Signs Temp 98.1 F 12/26/23 08:00 Pulse 100 12/26/23 08:00 Resp 18 12/26/23 08:00 BP 151/96 12/26/23 08:00 Pulse Ox 100 12/26/23 08:15 FiO2 40 12/23/23 07:00 Intake & Output 12/25/23 12/26/23 12/26/23 18:59 06:59 18:59 Intake Total 350 50 Output Total 650 200 Balance -300 -200 50 Weight 52 kg 52 kg Intake: IV 50 Tube Feeding 350 Output: Urine 650 200 Other: Voiding Method Bedpan Bedpan Bedpan Urinal Urinal Urinal # Voids 1 # Bowel Movements 1 - Exam GENERAL EXAM: Alert, very pleasant, thin 63-year-old male, on 3 L nasal cannula, comfortable in no apparent distress. HEAD: Normocephalic. EYES: Normal reaction of pupils, equal size. NOSE: Clear with pink turbinates. THROAT: No erythema or exudates. NECK: No masses, no JVD. CHEST: No chest wall deformity. LUNGS: Equal air entry with coarse crackles in the bilateral bases. CVS: S1 and S2 normal with no audible murmur, regular rhythm. ABDOMEN: No hepatosplenomegaly, normal bowel sounds, no guarding or rigidity. SPINE: No scoliosis or deformity SKIN: No rashes CENTRAL NERVOUS SYSTEM: No focal deficits, tone is normal in all 4 extremities. EXTREMITIES: There is no peripheral edema. No clubbing, no cyanosis. Peripheral pulses are intact. - Labs CBC & Chem 7: 12/24/23 10:54 12/24/23 10:54 Labs: Abnormal Lab Results - Last 24 Hours (Table) 12/25/23 12/25/23 12/26/23 Range/Units 18:01 23:52 06:26 POC Glucose (mg/dL) 163 H 114 H 156 H (70-110) mg/dL 12/26/23 Range/Units 11:26 POC Glucose (mg/dL) 119 H (70-110) mg/dL Assessment and Plan Assessment: Acute on chronic hypoxic respiratory failure secondary to interstitial lung disease Acute toxic metabolic encephalopathy Possible acute alcohol withdrawal is a possibility. Severe protein calorie malnutrition Idiopathic pulmonary fibrosis/interstitial lung disease mostly on 3 L nasal cannula at home Degenerative joint disease Extreme medical debility Difficulty swallowing and aspiration, PEG tube is to be placed today, in the meantime continue nasogastric tube and feeding via nasogastric tube Plan: The patient was seen and evaluated Labs and medications reviewed Continue the current treatment plan Plan is for PEG tube placement today We will continue to follow I have personally seen and examined the patient, performed the documentation and the assessment and plan as written. Number of minutes spent on the visit: 10.
[2023-12-26 16:52] LABS: Glucose,Whole Blood 107 mg/dL (70-110)
--- NOTE | 2023-12-26 19:01 | P.PN ---
Subjective Progress Note Date: 12/26/23 Principal diagnosis: Reason for follow-up is likely aspiration pneumonia Patient is a 63-year-old male with a past medical history significant for EtOH abuse DTs pulmonary fibrosis on home O2 recent admission to the hospital treated for DTs patient has been brought back to the hospital for evaluation of altered mental status and there was concern for possible aspirat ion pneumonia in this patient who did have a fever on presentation to the hospital. On today's visit that is 12/26/2023, the patient continues to be afebrile, the patient is on 3 L nasal cannula oxygen and breathing comfortably, the Pt denies having any chest pain or worsening cough, the patient denies having any abdominal pain no vomiting or any diarrhea, currently waiting for a PEG tube placement. No new labs has been obtained today Objective - Vital Signs Vital signs: Vital Signs Temp 97.8 F 12/26/23 04:00 Pulse 100 12/26/23 04:00 Resp 18 12/26/23 04:00 BP 153/95 12/26/23 04:00 Pulse Ox 100 12/26/23 08:15 FiO2 40 12/23/23 07:00 Intake & Output 12/25/23 12/26/23 12/26/23 18:59 06:59 18:59 Intake Total 350 50 Output Total 650 200 Balance -300 -200 50 Weight 52 kg Intake: IV 50 Tube Feeding 350 Output: Urine 650 200 Other: Voiding Method Bedpan Bedpan Urinal Urinal # Voids 1 # Bowel Movements 1 - Exam GENERAL DESCRIPTION: Middle-age male lying in bed in no distress RESPIRATORY SYSTEM: Unlabored breathing , decreased breath sounds at bases HEART: S1 S2 regular rate and rhythm , ABDOMEN: Soft , no tenderness EXTREMITIES: No edema feet - Labs CBC & Chem 7: 12/24/23 10:54 12/24/23 10:54 Labs: Abnormal Lab Results - Last 24 Hours (Table) 12/25/23 12/25/23 12/26/23 Range/Units 18:01 23:52 06:26 POC Glucose (mg/dL) 163 H 114 H 156 H (70-110) mg/dL 12/26/23 Range/Units 11:26 POC Glucose (mg/dL) 119 H (70-110) mg/dL Assessment and Plan (1) Aspiration pneumonia Current Visit: Yes Status: Acute Code(s): J69.0 - PNEUMONITIS DUE TO INHALATION OF FOOD AND VOMIT SNOMED Code(s): 109421995 (2) Leukocytosis Current Visit: Yes Status: Acute Code(s): D72.829 - ELEVATED WHITE BLOOD CELL COUNT, UNSPECIFIED SNOMED Code(s): 198814300 (3) Thrush Current Visit: Yes Status: Acute Code(s): B37.0 - CANDIDAL STOMATITIS SNOMED Code(s): 73215496 Plan: 1patient presented to hospital with sepsis in this patient who did have fever tachycardia elevated white count concerning for possible aspiration pneumonitis 2-blood and sputum culture so far negative, the patient MRSA nasal screen is negative 3- patient remains to be afebrile white count has almost normalized 4-patient to continue with Zosyn to finish a 10-day course of therapy and monitor clinical course closely Dictation was produced using [employer] dictation software. please excuse any grammatical, word or spelling errors. Time with Patient: Less than 30
[2023-12-26] MEDS: busPIRone HCl 5 MG TAB PO SCH (20:57)
[2023-12-26 23:39] LABS: Glucose,Whole Blood 112 mg/dL (70-110)
[2023-12-27 06:14] LABS: Glucose,Whole Blood 114 mg/dL (70-110)
[2023-12-27] MEDS: CITALOPRAM HYDROBROMIDE 20 MG TAB PO SCH (08:26)
--- NOTE | 2023-12-27 10:55 | P.PN ---
Subjective Progress Note Date: 12/27/23 63-year-old male with PMH of chronic hypoxic respiratory failure due to pulmonary fibrosis 3.5 L home O2, history of alcohol abuse, anxiety and depression presented to the ED for altered mentation and described as family as shaking all day. In the ED he was noted to be waxing and waning with episodes where he yells out his name and other times where he seems to be confused and shaking. Patient was loaded on Keppra and Ativan for what was thought to be seizure like activity. In the ED BP 85/57, HR 122, Tmax 101.5F, RR 28, 87% on RA. CBC WBC 13.3, Hg 12.8, Hct 38.5, MCV 101. Coag panel within normal limits. ABG pH 7.36, pCO2 44. CMP Na 134, bicarb 21, Cr 0.51, glu 100, Ca 8.1. Lactic acid 5.3. UA negative LE or nitrite. UDS positive for opiate, benzodiazepine and THC. Serum EtOH negative. Flu, RSV, COVID negative. TSH 2.43. Procal 0.09. B12 399. Ammonia 32. CRP 15. Brain CT negative for acute changes. CXR scattered parenchymal opacities favoring pulmonary fibrosis. EKG sinus tachycardia. Patient was started on Vanomcyin and Zosyn and admitted for PNA versus meningitis. Initially plans for LP. Neurology and ID consulted, EEG performed showed background slowing, disorganization, suggestive of mild to moderate encephalopathy. His mentation improved and LP was cancelled due to low probabi lity of meningitis. Keppra was titrated down. His altered mentation was thought to be related to possible EtOH withdrawal, aspiration PNA, and polypharmacy. MRSA nares negative, Vancomycin discontinued 12/19. Keppra weaned off 12/20. Patient continues to aspirate with feeds. Video swallow confirmed this on 12/21. Surgery consulted with plans for PEG on Tuesday. 12/23 Patient was seen and examined. Breathing better. Currently 98% on 2L. Currently with NG tube. Plans for PEG on Tuesday. CBC Hg 11.7 Hct 37.1 MCV 105.2. BMP Cl 94, bicarb 38, BUN 24, glu 145. 12/24 Patient was seen and examined. Reports uncontrolled back pain. Was taking MSIR 15 mg PO QID at home. BP 168/112 likely due to uncontrolled pain. Surgery note reviewed, plans for PEG tomorrow. 12/25 Patient was seen and examined. Plans for PEG tube today. BP slightly improved to 153/95. Patient to be started on Losartan 50 mg PO QD for better BP control. 12/26 Patient was seen and examined. PEG placed successfully yesterday. Tube feeds to be started this afternoon. Discussed with Janeen RADIATION CONTROL TECHNICIAN, watch overnight to see if patient can tolerate TF. BP 151/96. Started on Metoprolol 12.5 mg PO BID. General: non toxic, no distress, appears at stated age Derm: warm, dry Head: atraumatic, normocephalic, symmetric Eyes: EOMI, no lid lag, anicteric sclera Mouth: no lip lesion, mucus membranes moist Cardiovascular: S1S2 tachy, no murmur Lungs: Coarse BS bilateral, no rhonchi, no rales , no accessory muscle use Ext: no gross muscle atrophy, no edema, no contractures Neuro: no focal neuro deficits Psych: Alert, oriented, appropriate affect Based on my assessment of this patient, this patient meets a high complexity level of care. Patient has an acute diagnosis of sepsis due to aspiration PNA that poses a threat to life or bodily function. Acute metabolic encephalopathy: Multifactorial. EtOH abuse. Aspiration PNA. Polypharmacy. Weaned off Keppra. Seziure and Fall precautions. Neurology on board. Hypertensive urgency: Likely due to uncontrolled pain. Restart MSIR 15 mg PO QID. Losartan 50 mg PO QD. Start Metoprolol 12.5 mg PO BID. Sepsis due to aspiration PNA: BCx and Sputum Cx prelim negative. Continue Zosyn 3.375g IV TID (D11). Telemetry monitoring. NS at 20 cc/hr. Surgery, ID and Pulmonary on board. EtOH abuse with DTs: Ativan PRN for CIWA protocol. Macrocytic anemia: Likely due to EtOH abuse. Acute on chronic hypoxic respiratory failure: Currently on 2L HFNC. DuoNeb PRN for SOB/wheezing. Pulmonary fibrosis CODE STATUS: FULL CODE DVT Prophylaxis: Heparin SQ. GI Prophylaxis: Protonix IV Designated medical POA if patient is not able to make medical decisions for themselves: I have reviewed the following portfolio consultant notes: Surgery, Pulmonary, Neurology, ID note. I have reviewed the results of the following tests: I have ordered the following tests: CBC and BMP pending. I have discussed the care of this patient with the following independent historian: Case management. I have independently interpreted the following test below: I have discussed the management of this patient with the following physician: Janeen FIERRO as above. Objective - Vital Signs Vital signs: Vital Signs Temp 97.9 F 12/27/23 08:00 Pulse 106 H 12/27/23 09:29 Resp 20 12/27/23 09:29 BP 151/96 12/27/23 08:00 Pulse Ox 94 L 12/27/23 08:45 FiO2 40 12/23/23 07:00 Intake & Output 12/26/23 12/27/23 12/27/23 18:59 06:59 18:59 Intake Total 50 Output Total 202 900 Balance 50 -202 -900 Weight 52 kg Intake: IV 50 Output: Urine 200 900 Stool 2 Other: Voiding Method Bedpan Bedpan Urinal Urinal # Voids 2 2 # Bowel Movements 1 - Labs CBC & Chem 7: 12/24/23 10:54 12/24/23 10:54 Labs: Abnormal Lab Results - Last 24 Hours (Table) 12/26/23 12/26/23 12/27/23 Range/Units 11:26 23:37 06:12 POC Glucose (mg/dL) 119 H 112 H 114 H (70-110) mg/dL
[2023-12-27] MEDS ORDERED: carvediloL 3.125 MG TAB PO SCH (11:00)
[2023-12-27 11:19] LABS: HCT 38.7 % (39.0-53.0); HGB 12.2 gm/dL (13.0-17.5); MCH 32.7 pg (25.0-35.0); MCHC 31.6 g/dL (31.0-37.0); MCV 103.4 fL (80.0-100.0); Macrocytosis Slight; Platelet Count 317 k/uL (150-450); RBC 3.74 m/uL (4.30-5.90); RDW 14.2 % (11.5-15.5); WBC 15.4 k/uL (3.8-10.6)
[2023-12-27 11:31] LABS: African American GFR (CKD) >90 (>60 ml/min/1.73 sqM); Anion Gap 7 mmol/L; Blood Urea Nitrogen 21 mg/dL (9-20); Calcium 8.8 mg/dL (8.4-10.2); Carbon Dioxide 34 mmol/L (22-30); Chloride 94 mmol/L (98-107); Glucose 109 mg/dL (74-99); Non-African American GFR(CKD) >90 (>60 ml/min/1.73 sqM); Sodium 135 mmol/L (137-145)
[2023-12-27 11:59] LABS: Glucose,Whole Blood 105 mg/dL (70-110)
[2023-12-27] MEDS: METOPROLOL TARTRATE 12.5 MG TAB PO SCH (12:38)
--- NOTE | 2023-12-27 15:40 | P.PN ---
Subjective Progress Note Date: 12/27/23 This is a 63-year-old male patient was brought into the ICU because of altered mentation. The patient has history of advanced pulmonary fibrosis. The patient has been diagnosed having IPF few years back and the patient has been treated with Ofev and he has severe restrictive lung disease with an FVC of 45% predicted and is also oxygen dependent at 3 L/min nasal cannula. He has history of alcoholism and the patient is chronically debilitated. He drinks alcohol excessively approximately 7 beers a day and he also drinks 1/5 of peppermint schnapps every day. The patient was in the hospital back in October 2023 and at that time the patient sustained acute hypoxic respiratory failure and required intubation mechanical ventilation. Note that during his hospital stay, the patient also sustained some alcohol withdrawal symptoms. He was ultimately stabilized and he was discharged to be readmitted yesterday due to diminished level of consciousness, increased shakiness, confusion, unable to communicate and unable to provide appropriate history. On examination, the patient r shows signs of significant debility, muscle wasting and significant loss of total body muscle mass and malnutrition and deconditioning. The patient was moved to the intensive care unit. Earlier this morning, I had a sitter at the bedside and I was able to briefly communicate with the patient. Nevertheless, he was obviously encephalopathic. He was able to maintain eye contact. He was saying few words and following simple commands and following that and the patient became more agitated he was given Ativan and he became more rested. Obviously, the shakiness is not a sign of seizure at this point in time. He was given Keppra overnight. At time of my evaluation the patient was able to communicate even while he was having those shakes. It is possible that this may be some signs of tremors, delirium tremens this been going on. The viral screen has been negative. Likely his level was at 2.9. The blood gas was done overnight showed a pH of 7.36 with a pCO2 of 44 and pO2 of 61 and this was an FiO2 of 44%. The patient's WBC count at 15.3, it was 4.8 and platelet count of 270. Normal coagulation profile. BUN is at 40 with a creatinine of 0.5 and sodium levels at 134 with a potassium level of 4.8. LFTs are normal. UA is showing possible blood and +1 glucose. No signs of any infection. Alcohol level less than 10. The chest x-ray is consistent with pulmonary fibrosis and the patient has small lung volumes bilaterally and scattered pulmonary opacities favor scarring. An acute superimposed process cannot be completely ruled out. CAT scan of the brain that was done in the emergency showed no acute hemorrhage hydrocephalus or mass effects. At this point in time, the patient is on 5 L of oxygen by nasal cannula with a pulse ox of 100%. Hemodynamically stable. No reported fever. There was a temperature max of 100.2 during this current admission. Currently afebrile. Cardiac rhythm is sinus. On today's evaluation of 12/18/2023, the patient is arousable and awake and he is following some simple commands and answering questions. Overnight, the patient received a total of 4 mg of Ativan and the last dose was given to him at 9:21 PM. He is awake and alert and communicating. Extremely debilitated. Extremely weak. Has a weak cough. Oral mucosa remains dry. He was on oxygen and he was brought up to 13 L and he was weaned down to 10 L and I further cut down the oxygen flow to 5 L this morning. He is on normal saline at rate of 130 cc an hour. A repeat chest x-ray was done today and shows consolidation and chronic fibrotic changes. There is worsening of the consolidation airspace disease on the right compared to yesterday's chest x-ray. Suspected aspiration pneumonia. Based on that, the patient was covered with IV Zosyn and vancomycin. The white cell count today is at 14.1 with a hemoglobin 11.7 and a platelet count of 254. BUN is at 2 with a creatinine of 0.4 and sodium levels at 131 with a potassium level of 3.1. LFTs are within normal limits. The patient is extremely debilitated and weak. May benefit from a Dobbhoff catheter insertion. This may be needed at a later stage IV medication enteral feeding. Hemodynamically stable. Neurology on the case. No evidence of any seizures. He is maintained on Keppra. EEG is to follow. No neck stiffness. No fever at this point in time. Patient was reevaluated today on 12/19/2023, remains in the ICU, he is now on 5 L nasal cannula his mental status has significantly improved, remains on IV fluid at 100 cc/h, remains on Zosyn and vancomycin, overall the patient is steadily improving he feels better, nonetheless patient is chronically ill and his illness is mostly related to his severe interstitial lung disease/pulmonary fibrosis. WBC count today is 11.2 hemoglobin 12.4 basic metabolic profile is normal renal profile is normal. Chest x-ray continues to show bilateral interstitial lung disease, and dilated bowel loops Reevaluate today on 12/20/2023, patient remains in the ICU, now on 10 L nasal cannula, last night he was on BiPAP 12/6/40%. Remains marginal at best, patient has shortness of breath with any activity, his IV fluids at KVO he is on vancomycin and Zosyn, patient is quite anxious, and I recommend today Xanax 0.5 mg every 8 hours as needed, and I am also recommending patient to go to airvo as well as continue Solu-Medrol. Patient remains on antibiotics as per infectious disease on the case, I honestly believe the patient has worsening IPF, and prognosis is extremely poor and guarded. Today I had a long discussion with the patient about CODE STATUS, he wants to remain full code, and he was made aware that potentially if he ends up intubated mechanically ventilated the most likely chance that he would end up with a tracheostomy and PEG tube placement, and he c learly stated to me that he would like to see his grandchildren and there is one coming on the way as the patient remains full code at this point Reevaluate today on12/21/23, patient is feeling better today, he is down to 7 L high flow nasal cannula, seems to be less anxious, he is on anxiolytic med ications/Xanax, breathing easier, CBC is relatively normal basic metabolic profile is normal blood sugar is normal, patient remains a bit tachypneic and tachycardic. But definitely improved compared to the last couple of days. Reevaluated today on 12/22/2023, patient is basically about the same as yesterday, remains tachypneic and tachycardic. Patient is still on steroids, antibiotics, bronchodilators, and he is still on 7 L high flow nasal cannula. Last night had to be placed on BiPAP 12/6/40% sitting at bedside. WBC is 15.5 hemoglobin 12.1 basic metabolic profile is normal bicarb 37 renal profile is normal, chest x-ray continues to show bilateral interstitial infiltrates. Mostly at the bases and peripherally Patient was reevaluated today on 12/23/2023, patient is feeling better today, breathing easier, continues to have episodes of aspiration and choking sensation when he is drinking fluids, I believe the patient will eventually most likely require a PEG tube placement. In the meantime his pulmonary status seems to be improving and responding to steroids and antibiotics as well as bronchodilators. He is down today to 4 L nasal cannula, and has a bedside BiPAP 12/6/40% that he uses at night. I plan to transfer the patient today out of the ICU to [facility] if his condition gets any worse I will bring him back to the ICU if requires intubation.WBC count is 10.9 hemoglobin 11.3, basic metabolic profile is normal and renal profile is normal Reevaluated today on 12/24/2023, patient is doing well, now on 2 L nasal cannula with O2 sats of 94% patient has a nasogastric tube in place, and he is being fed via nasogastric tube. Now I am beginning to suspect that his worsening hypoxic respiratory failure may be related to his underlying fibrosis with superimposed aspiration intermittently. Now that we are controlling the aspiration picture, his overall pulmonary status seems to be improving.WBC count is 9.2 hemoglobin 11.7 basic metabolic profile is normal renal profile is normal bicarb is 38 Reevaluated today on 12/25/2023, patient continues to do well, he is now on 3 L nasal cannula with O2 sats of 98%,, and now in retrospect I believe the patient is developing chronic aspiration pneumonia with underlying interstitial lung disease. His overall picture has significantly improved after we placed a nasogastric tube and made the patient n.p.o. Patient is scheduled for PEG tube placement tomorrow, and eventually needs to be on enteral feeding via PEG tube only. Patient has been chronically aspirating most likely. WBC count today is 9.2 hemoglobin 11.7 basic metabolic profile is normal renal profile is normal The patient is seen today December 26, 2023 in follow-up on the selective care unit. He is currently resting comfortably in bed. Awake and alert in no acute distress. He is maintaining good O2 saturations in the 90s on 3 L/min per nasal cannula. He remains NPO. Plan is for PEG tube placement today. Glucose 119. He remains on bronchodilators, steroids, Zosyn. Heparin for DVT prophylaxis. The patient was seen today December 27, 2023 in follow-up on the selective care unit. He is awake and alert in no acute distress. He is breathing easier today compared to yesterday. No worsening shortness of breath, cough or congestion. Maintaining good O2 saturation in the 90s on 3 L/min per nasal cannula. He remains on DuoNeb inhalations, Solu-Medrol, Zosyn. He has been initiated on Jevity 1.0 continuous feedings currently at 10 MLS per hour with a goal of 70 mL/h. White count 15.4. Hemoglobin 12.2. Sodium 135. Potassium 4.0. Bicarb 34. BUN 21. Creatinine 0.54. Glucose 109. X-ray continues to show left lower lobe airspace disease with pulmonary venous congestion. Similar to previous Objective - Vital Signs Vital signs: Vital Signs Temp 97.4 F L 12/27/23 11:21 Pulse 106 H 12/27/23 11:21 Resp 18 12/27/23 11:21 BP 149/97 12/27/23 11:21 Pulse Ox 94 L 12/27/23 11:21 FiO2 40 12/23/23 07:00 Intake & Output 12/26/23 12/27/23 12/27/23 18:59 06:59 18:59 Intake Total 50 Output Total 202 900 Balance 50 -202 -900 Weight 52 kg 52 kg Intake: IV 50 Output: Urine 200 900 Stool 2 Other: Voiding Method Bedpan Bedpan Urinal Urinal # Voids 2 2 # Bowel Movements 1 - Exam GENERAL EXAM: Alert, thin 63-year-old male, on 3 L nasal cannula, comfortable in no apparent distress. HEAD: Normocephalic. EYES: Normal reaction of pupils, equal size. NOSE: Clear with pink turbinates. THROAT: No erythema or exudates. NECK: No masses, no JVD. CHEST: No chest wall deformity. LUNGS: Equal air entry with coarse crackles in the bilateral bases. CVS: S1 and S2 normal with no audible murmur, regular rhythm. ABDOMEN: PEG tube exit site clean and dry. No hepatosplenomegaly, normal bowel sounds. SPINE: No scoliosis or deformity SKIN: No rashes CENTRAL NERVOUS SYSTEM: No focal deficits, tone is normal in all 4 extremities. EXTREMITIES: There is no peripheral edema. No clubbing, no cyanosis. Peripheral pulses are intact. - Labs CBC & Chem 7: 12/27/23 09:37 12/27/23 09:37 Labs: Abnormal Lab Results - Last 24 Hours (Table) 12/26/23 12/27/23 12/27/23 Range/Units 23:37 06:12 09:37 WBC 15.4 H (3.8-10.6) k/uL RBC 3.74 L (4.30-5.90) m/uL Hgb 12.2 L (13.0-17.5) gm/dL Hct 38.7 L (39.0-53.0) % MCV 103.4 H (80.0-100.0) fL Sodium (137-145) mmol/L Chloride (98-107) mmol/L Carbon Dioxide (22-30) mmol/L BUN (9-20) mg/dL Creatinine (0.66-1.25) mg/dL Glucose (74-99) mg/dL POC Glucose (mg/dL) 112 H 114 H (70-110) mg/dL 12/27/23 Range/Units 09:37 WBC (3.8-10.6) k/uL RBC (4.30-5.90) m/uL Hgb (13.0-17.5) gm/dL Hct (39.0-53.0) % MCV (80.0-100.0) fL Sodium 135 L (137-145) mmol/L Chloride 94 L (98-107) mmol/L Carbon Dioxide 34 H (22-30) mmol/L BUN 21 H (9-20) mg/dL Creatinine 0.54 L (0.66-1.25) mg/dL Glucose 109 H (74-99) mg/dL POC Glucose (mg/dL) (70-110) mg/dL Assessment and Plan Assessment: Acute on chronic hypoxic respiratory failure secondary to interstitial lung disease and possible underlying left lower lobe pneumonia. He remains on Zosyn Acute toxic metabolic encephalopathy, recovered Possible acute alcohol withdrawal is a possibility Severe protein calorie malnutrition my dysphagia. PEG tube placed on 12/26/2023. Jevity tube feedings initiated Idiopathic pulmonary fibrosis/interstitial lung disease mostly on 3 L nasal cannula at home Degenerative joint disease Extreme medical debility Plan: The patient was seen and evaluated Labs and medications reviewed Continue the current treatment plan Initiated on tube feedings today Increase his activity as tolerated Titrate the FiO2 as tolerated We will continue to follow I have personally seen and examined the patient, performed the documentation and the assessment and plan as written. Number of minutes spent on the visit: 10.
--- NOTE | 2023-12-27 16:18 | P.PN ---
Subjective Progress Note Date: 12/27/23 CHIEF COMPLAINT: Protein calorie malnutrition HISTORY OF PRESENT ILLNESS: Patient status post PEG tube placement. Tube feeds to be started today. He denies any abdominal pain. Denies any nausea or vomit ing. Mildly tachycardic. WBC is up from 9.2-15 PHYSICAL EXAM: VITAL SIGNS: Reviewed. GENERAL: Well-developed in no acute distress. ABDOMEN: Soft. Nondistended. Nontender. PEG tube site clean dry and intact NEUROLOGIC: Alert and oriented. Cranial nerves II through XII grossly intact. ASSESSMENT: 1. Moderate protein calorie malnutrition 2. Aspiration pneumonia PLAN: -Dietitian consulted to initiate tube feeds today Physician Condenser Tube Tender note has been reviewed by physician. Signing provider agrees with the documented findings, assessment, and plan of care. Objective - Vital Signs Vital signs: Vital Signs Temp 97.4 F L 12/27/23 11:21 Pulse 106 H 12/27/23 11:21 Resp 18 12/27/23 11:21 BP 149/97 12/27/23 11:21 Pulse Ox 94 L 12/27/23 11:21 FiO2 40 12/23/23 07:00 Intake & Output 12/26/23 12/27/23 12/27/23 18:59 06:59 18:59 Intake Total 50 Output Total 202 900 Balance 50 -202 -900 Weight 52 kg 52 kg Intake: IV 50 Output: Urine 200 900 Stool 2 Other: Voiding Method Bedpan Bedpan Urinal Urinal # Voids 2 2 # Bowel Movements 1 - Labs CBC & Chem 7: 12/27/23 09:37 12/27/23 09:37 Labs: Abnormal Lab Results - Last 24 Hours (Table) 12/26/23 12/27/23 12/27/23 Range/Units 23:37 06:12 09:37 WBC 15.4 H (3.8-10.6) k/uL RBC 3.74 L (4.30-5.90) m/uL Hgb 12.2 L (13.0-17.5) gm/dL Hct 38.7 L (39.0-53.0) % MCV 103.4 H (80.0-100.0) fL Sodium (137-145) mmol/L Chloride (98-107) mmol/L Carbon Dioxide (22-30) mmol/L BUN (9-20) mg/dL Creatinine (0.66-1.25) mg/dL Glucose (74-99) mg/dL POC Glucose (mg/dL) 112 H 114 H (70-110) mg/dL 12/27/23 Range/Units 09:37 WBC (3.8-10.6) k/uL RBC (4.30-5.90) m/uL Hgb (13.0-17.5) gm/dL Hct (39.0-53.0) % MCV (80.0-100.0) fL Sodium 135 L (137-145) mmol/L Chloride 94 L (98-107) mmol/L Carbon Dioxide 34 H (22-30) mmol/L BUN 21 H (9-20) mg/dL Creatinine 0.54 L (0.66-1.25) mg/dL Glucose 109 H (74-99) mg/dL POC Glucose (mg/dL) (70-110) mg/dL
--- NOTE | 2023-12-27 16:35 | P.PN ---
Subjective Progress Note Date: 12/27/23 Principal diagnosis: Reason for follow-up is likely aspiration pneumonia Patient is a 63-year-old male with a past medical history significant for EtOH abuse DTs pulmonary fibrosis on home O2 recent admission to the hospital treated for DTs patient has been brought back to the hospital for evaluation of altered mental status and there was concern for possible aspirat ion pneumonia in this patient who did have a fever on presentation to the hospital. On today's visit that is 12/27/2023, Patient is afebrile patient is currently on 3 L nasal cannula oxygen and denies having any shortness of breath, the patient denies any chest pain or any worsening cough, the patient denies any nausea vomiting did not have any abdominal pain and no diarrhea. Patient white count is 15.4 creatinine 0.54 Objective - Vital Signs Vital signs: Vital Signs Temp 96.1 F L 12/27/23 16:00 Pulse 77 12/27/23 16:00 Resp 17 12/27/23 16:00 BP 174/107 12/27/23 16:00 Pulse Ox 95 12/27/23 16:00 FiO2 40 12/23/23 07:00 Intake & Output 12/26/23 12/27/23 12/27/23 18:59 06:59 18:59 Intake Total 50 Output Total 202 902 Balance 50 -90 Weight 52 kg 52 kg Intake: IV 50 Output: Urine 200 900 Stool 2 2 Other: Voiding Method Bedpan Bedpan Bedpan Urinal Urinal Urinal # Voids 2 2 # Bowel Movements 1 - Exam GENERAL DESCRIPTION: Middle-age male lying in bed in no distress RESPIRATORY SYSTEM: Unlabored breathing , decreased breath sounds at bases HEART: S1 S2 regular rate and rhythm , ABDOMEN: Soft , no tenderness EXTREMITIES: No edema feet - Labs CBC & Chem 7: 12/27/23 09:37 12/27/23 09:37 Labs: Abnormal Lab Results - Last 24 Hours (Table) 12/26/23 12/27/23 12/27/23 Range/Units 23:37 06:12 09:37 WBC 15.4 H (3.8-10.6) k/uL RBC 3.74 L (4.30-5.90) m/uL Hgb 12.2 L (13.0-17.5) gm/dL Hct 38.7 L (39.0-53.0) % MCV 103.4 H (80.0-100.0) fL Sodium (137-145) mmol/L Chloride (98-107) mmol/L Carbon Dioxide (22-30) mmol/L BUN (9-20) mg/dL Creatinine (0.66-1.25) mg/dL Glucose (74-99) mg/dL POC Glucose (mg/dL) 112 H 114 H (70-110) mg/dL 12/27/23 Range/Units 09:37 WBC (3.8-10.6) k/uL RBC (4.30-5.90) m/uL Hgb (13.0-17.5) gm/dL Hct (39.0-53.0) % MCV (80.0-100.0) fL Sodium 135 L (137-145) mmol/L Chloride 94 L (98-107) mmol/L Carbon Dioxide 34 H (22-30) mmol/L BUN 21 H (9-20) mg/dL Creatinine 0.54 L (0.66-1.25) mg/dL Glucose 109 H (74-99) mg/dL POC Glucose (mg/dL) (70-110) mg/dL Assessment and Plan (1) Aspiration pneumonia Current Visit: Yes Status: Acute Code(s): J69.0 - PNEUMONITIS DUE TO INHALATION OF FOOD AND VOMIT SNOMED Code(s): 093030926 (2) Leukocytosis Current Visit: Yes Status: Acute Code(s): D72.829 - ELEVATED WHITE BLOOD CELL COUNT, UNSPECIFIED SNOMED Code(s): 602757732 (3) Thrush Current Visit: Yes Status: Acute Code(s): B37.0 - CANDIDAL STOMATITIS SNOMED Code(s): 48485953 Plan: 1patient presented to hospital with sepsis in this patient who did have fever tachycardia elevated white count concerning for possible aspiration pneumonitis 2-blood and sputum culture so far negative, the patient MRSA nasal screen is negative 3- patient remains to be afebrile noticed to have slight worsening of the white count could be related to the steroids and will be monitored closely 4-patient to continue with Zosyn to finish a 10-day course of therapy, at the bedside questions answered Dictation was produced using [employer] software. please excuse any grammatical, word or spelling errors.
[2023-12-27 17:45] LABS: Glucose,Whole Blood 163 mg/dL (70-110)
[2023-12-27 23:50] LABS: Glucose,Whole Blood 149 mg/dL (70-110)
[2023-12-28 06:25] LABS: Glucose,Whole Blood 158 mg/dL (70-110)
--- NOTE | 2023-12-28 06:50 | P.DS ---
Providers Date of admission: 12/17/23 03:39 Expected date of discharge: 12/28/23 Attending physician: Fiona Dias MD Consults: 12/17/23 03:39 Consult Physician Routine Consulting Provider: Amalia Cheney Consult Reason/Comments: known Do you want consulting provider notified?: Yes 12/17/23 04:52 Consult Physician Routine Consulting Provider: Shon Schrader Consult Reason/Comments: newSz Do you want consulting provider notified?: Yes 12/17/23 05:03 Consult Physician Routine Consulting Provider: Lindsey Thao Consult Reason/Comments: fever Do you want consulting provider notified?: Yes 12/17/23 17:46 Consult Physician Routine Consulting Provider: Shon Schrader Consult Reason/Comments: AMS Do you want consulting provider notified?: Yes 12/22/23 15:11 Consult Physician Routine Consulting Provider: Samir Cramer Consult Reason/Comments: PEG tube placement Do you want consulting provider notified?: Yes Primary care physician: Brian [place] Hospital Course: 63-year-old male with PMH of chronic hypoxic respiratory failure due to pulmonary fibrosis 3.5 L home O2, history of alcohol abuse, anxiety and depression presented to the ED for altered mentation and described as family as shaking all day. In the ED he was noted to be waxing and waning with episodes where he yells out his name and other times where he seems to be confused and shaking. Patient was loaded on Keppra and Ativan for what was thought to be seizure like activity. In the ED BP 85/57, HR 122, Tmax 101.5F, RR 28, 87% on RA. CBC WBC 13.3, Hg 12.8, Hct 38.5, MCV 101. Coag panel within normal limits. ABG pH 7.36, pCO2 44. CMP Na 134, bicarb 21, Cr 0.51, glu 100, Ca 8.1. Lactic acid 5.3. UA negative LE or nitrite. UDS positive for opiate, benzodiazepine and THC. Serum EtOH negative. Flu, RSV, COVID negative. TSH 2.43. Procal 0.09. B12 399. Ammonia 32. CRP 15. Brain CT negative for acute changes. CXR scattered parenchymal opacities favoring pulmonary fibrosis. EKG sinus tachycardia. Patient was started on Vanomcyin and Zosyn and admitted for PNA versus meningitis. Initially plans for LP. Neurology and ID consulted, EEG performed showed background slowing, disorganization, suggestive of mild to moderate encephalopathy. His mentation improved and LP was cancelled due to low probability of meningitis. Keppra was titrated down. His altered mentation was thought to be related to possible EtOH withdrawal, aspiration PNA, and polypharmacy. MRSA nares negative, Vancomycin discontinued 12/19. Keppra weaned off 12/20. Patient continues to aspirate with feeds. Video swallow confirmed this on 12/21. Surgery consulted with plans for PEG on Tuesday. 12/23 Patient was seen and examined. Breathing better. Currently 98% on 2L. Currently with NG tube. Plans for PEG on Tuesday. CBC Hg 11.7 Hct 37.1 MCV 105.2. BMP Cl 94, bicarb 38, BUN 24, glu 145. 12/24 Patient was seen and examined. Reports uncontrolled back pain. Was taking MSIR 15 mg PO QID at home. BP 168/112 likely due to uncontrolled pain. Surgery note reviewed, plans for PEG tomorrow. 12/25 Patient was seen and examined. Plans for PEG tube today. BP slightly improved to 153/95. Patient to be started on Losartan 50 mg PO QD for better BP control. 12/26 Patient was seen and examined. PEG placed successfully yesterday. Tube feeds to be started this afternoon. Discussed with Janeen FIERRO, watch overnight to see if patient can tolerate TF. BP 151/96. Started on Metoprolol 12.5 mg PO BID. CBC WBC 15.4 Hg 12.2 Hct 38.7 MCV 103.4. BMP Na 135, Cl 94, bicarb 34, BUN 31, Cr 0.54, glu 109. 12/27 Patient was seen and examined. Tolerating TF well. He was previously on [facility] IR prescribed by Dr. Casillas before he retired. Patient has had difficulty with pain management since being taken of MS IR. We will consult [facility] hopefull y they can follow the patient on discharge. Patient has been on Zosyn since 12/17, today is day 10, will discus with Dr. Thao antibiotic regimen on discharge. Slow Prednisone taper on discharge. Hopeful plans for discharge home today. Discussed with plan with the extensively yesterday. General: non toxic, no distress, appears at stated age Derm: warm, dry Head: atraumatic, normocephalic, symmetric Eyes: EOMI, no lid lag, anicteric sclera Mouth: no lip lesion, mucus membranes moist Cardiovascular: S1S2 reg, no murmur Lungs: Decreased BS bilateral, no rhonchi, no rales , no accessory muscle use GI: PEG in place dressing c/d/i. Non tender to palpation Ext: no gross muscle atrophy, no edema, no contractures Neuro: no focal neuro deficits Psych: Alert, oriented, appropriate affect Discharge Diagnosis: Acute metabolic encephalopathy Hypertensive urgency Sepsis due to aspiration PNA Previous history of EtOH abuse with DTs Macrocytic anemia Acute on chronic hypoxic respiratory failure Pulmonary fibrosis This complex discharge took 35 minutes to complete. Patient Condition at Discharge: Stable Plan - Discharge Summary Discharge Rx Participant: Yes New Discharge Prescriptions: No Action QUEtiapine [SEROquel] 50 mg PO TID@0800,1400,1999 Folic Acid 1 mg PO DAILY #30 tab Cyclobenzaprine [Flexeril] 5 - 10 mg PO Q8H PRN PRN Reason: Pain Megestrol Acetate 400 mg PO BID Citalopram Hydrobromide [CeleXA] 40 mg PO DAILY busPIRone HCL [Buspar] 7.5 mg PO BID Melatonin 2 mg PO HS PRN PRN Reason: SLEEP, IF HE WAKES UP AT NIGHT Melatonin 2 mg PO HS Medihoney 80% Gel 1 applic TOPICAL DAILY Cbd Gummies 20mg 10 - 20 mg PO QID PRN PRN Reason: Pain Discharge Medication List Citalopram Hydrobromide [CeleXA] 40 mg PO DAILY 03/25/21 [History] QUEtiapine [SEROquel] 50 mg PO TID@0800,1400,199903/25/21 [History] Folic Acid 1 mg PO DAILY #30 tab 03/30/21 [Rx] busPIRone HCL [Buspar] 7.5 mg PO BID 10/14/23 [History] Cbd Gummies 20mg 10 - 20 mg PO QID PRN 12/17/23 [History] Cyclobenzaprine [Flexeril] 5 - 10 mg PO Q8H PRN 12/17/23 [History] Medihoney 80% Gel 1 applic TOPICAL DAILY 12/17/23 [History] Megestrol Acetate 400 mg PO BID 12/17/23 [History] Melatonin 2 mg PO HS 12/17/23 [History] Melatonin 2 mg PO HS PRN 12/17/23 [History] Follow up Appointment(s)/Referral(s): Brian Arzola DO [Primary Care Provider] - 1-2 days [facility], [NON-STAFF] - 12/29/23 [facility], [REFERRING] - 12/28/23 (Will deliver tube feed and supplies between 6PM-8PM)
[2023-12-28] MEDS: predniSONE 20 MG TAB PO SCH (08:31)
[2023-12-28 11:56] VITALS: BP 148/87; PULSE 81; RESP 16; TEMP 97.8
[2023-12-28 11:58] LABS: Glucose,Whole Blood 150 mg/dL (70-110)
--- NOTE | 2023-12-28 13:32 | P.PN ---
Subjective Progress Note Date: 12/28/23 Principal diagnosis: Shortness of breath. Reevaluate today on12/21/23, patient is feeling better today, he is down to 7 L high flow nasal cannula, seems to be less anxious, he is on anxiolytic medications/Xanax, breathing easier, CBC is relatively normal basic metabolic profile is normal blood sugar is normal, patient remains a bit tachypneic and tachycardic. But definitely improved compared to the last couple of days. Reevaluated today on 12/22/2023, patient is basically about the same as yesterday, remains tachypneic and tachycardic. Patient is still on steroids, antibiotics, bronchodilators, and he is still on 7 L high flow nasal cannula. Last night had to be placed on BiPAP 12/6/40% sitting at bedside. WBC is 15.5 hemoglobin 12.1 basic metabolic profile is normal bicarb 37 renal profile is normal, chest x-ray continues to show bilateral interstitial infiltrates. Mostly at the bases and peripherally Patient was reevaluated today on 12/23/2023, patient is feeling better today, breathing easier, continues to have episodes of aspiration and choking sensation when he is drinking fluids, I believe the patient will eventually most likely require a PEG tube placement. In the meantime his pulmonary status seems to be improving and responding to steroids and antibiotics as well as bronchodilators. He is down today to 4 L nasal cannula, and has a bedside BiPAP 12/6/40% that he uses at night. I plan to transfer the patient today out of the ICU to [facility] if his condition gets any worse I will bring him back to the ICU if requires intubation.WBC count is 10.9 hemoglobin 11.3, basic metabolic profile is normal and renal profile is normal Reevaluated today on 12/24/2023, patient is doing well, now on 2 L nasal cannula with O2 sats of 94% patient has a nasogastric tube in place, and he is being fed via nasogastric tube. Now I am beginning to suspect that his worsening hypoxic respiratory failure may be related to his underlying fibrosis with superimposed aspiration intermittently. Now that we are controlling the aspiration picture, his overall pulmonary status seems to be improving.WBC count is 9.2 hemoglobin 11.7 basic metabolic profile is normal renal profile is normal bicarb is 38 Reevaluated today on 12/25/2023, patient continues to do well, he is now on 3 L nasal cannula with O2 sats of 98%,, and now in retrospect I believe the patient is developing chronic aspiration pneumonia with underlying interstitial lung disease. His overall picture has significantly improved after we placed a nasogastric tube and made the patient n.p.o. Patient is scheduled for PEG tube placement tomorrow, and eventually needs to be on enteral feeding via PEG tube only. Patient has been chronically aspirating most likely. WBC count today is 9.2 hemoglobin 11.7 basic metabolic profile is normal renal profile is normal The patient is seen today December 26, 2023 in follow-up on the selective care unit. He is currently resting comfortably in bed. Awake and alert in no acute distress. He is maintaining good O2 saturations in the 90s on 3 L/min per nasal cannula. He remains NPO. Plan is for PEG tube placement today. Glucose 119. He remains on bronchodilators, steroids, Zosyn. Heparin for DVT prophylaxis. The patient was seen today December 27, 2023 in follow-up on the selective care unit. He is awake and alert in no acute distress. He is breathing easier today compared to yesterday. No worsening shortness of breath, cough or congestion. Maintaining good O2 saturation in the 90s on 3 L/min per nasal cannula. He remains on DuoNeb inhalations, Solu-Medrol, Zosyn. He has been initiated on Jevity 1.0 continuous feedings currently at 10 MLS per hour with a goal of 70 mL/h. White count 15.4. Hemoglobin 12.2. Sodium 135. Potassium 4.0. Bicarb 34. BUN 21. Creatinine 0.54. Glucose 109. X-ray continues to show left lower lobe airspace disease with pulmonary venous congestion. Similar to previous Progress note dated December 28, 2023. 63-year-old male seen today in room 381. The patient continues on oxygen, 3 L. He is not receiving any IV fluids. He is getting Jevity 1.0, at 70 cc an hour. Clinically, the patient feels much better. Shortness of breath is much improved. He is not coughing up any phlegm. There is no fever or chills. He denies any chest congestion. He also denies any chest pain or chest discomfort. Labs from today include a glucose of 150. Objective - Vital Signs Vital signs: Vital Signs Temp 97.8 F 12/28/23 11:25 Pulse 81 12/28/23 11:25 Resp 16 12/28/23 11:25 BP 148/87 12/28/23 11:25 Pulse Ox 95 12/28/23 08:16 FiO2 40 12/23/23 07:00 Intake & Output 12/27/23 12/28/23 12/28/23 18:59 06:59 18:59 Intake Total 700 Output Total 902 120 500 Balance -902 -120 200 Weight 52 kg Intake: Tube Feeding 700 Output: Urine 900 120 500 Stool 2 Other: Voiding Method Bedpan Urinal Urinal Urinal # Voids 2 - Exam No acute distress, oriented 3. Currently on 3 L. No conversational dyspnea or use of accessory muscles HEENT examination is grossly unremarkable. Mucous membranes are moist. No oral lesions. Neck supple. Full range of motion. No adenopathy thyromegaly or neck vein distention. Cardiovascular examination reveals regular rhythm rate. S1-S2 normal. No S3 or S4. No discernible murmur noted. Heart rate 81 bpm. Lungs reveal bibasilar crackles. No wheezes or rhonchi. Breath sounds equal. 3 L saturation is 97%. Abdomen soft, with bowel sounds. No masses or tenderness. PEG tube noted. Extremities are intact. No cyanosis clubbing or edema. Skin is without rash or lesion. Neurologic examination is brief but nonfocal. - Labs CBC & Chem 7: 12/27/23 09:37 12/27/23 09:37 Labs: Abnormal Lab Results - Last 24 Hours (Table) 12/27/23 12/27/23 12/28/23 Range/Units 17:44 23:47 06:19 POC Glucose (mg/dL) 163 H 149 H 158 H (70-110) mg/dL 12/28/23 Range/Units 11:57 POC Glucose (mg/dL) 150 H (70-110) mg/dL Assessment and Plan Assessment: Acute on chronic hypoxic respiratory failure secondary to interstitial lung disease and possible underlying left lower lobe pneumonia. Acute toxic metabolic encephalopathy, recovered. Possible acute alcohol withdrawal is a possibility. Severe protein calorie malnutrition my dysphagia. PEG tube placed on 12/26/2023. Idiopathic pulmonary fibrosis/interstitial lung disease mostly on 3 L nasal cannula at home. Degenerative joint disease. Extreme medical debility. Plan: Plan dated December 28, 2023. The patient is actually doing very well. Labs, x-rays, medications are reviewed. Currently, the patient is receiving oxygen at 3 L by nasal cannula. Tube feedings have been started, through his recently inserted PEG tube. We will continue to follow make recommendations along the way. Prognosis is guarded. Time with Patient: Less than 30
--- NOTE | 2023-12-28 14:09 | P.PN ---
Subjective Progress Note Date: 12/28/23 CHIEF COMPLAINT: Protein calorie malnutrition HISTORY OF PRESENT ILLNESS: Patient status post PEG tube placement. Patient is tolerating tube feeds. Denies any nausea or vomiting. He did have bowel movem ent. Does complain of some mild soreness around the PEG tube site. Tube feeds are at 70 mL/h. PHYSICAL EXAM: VITAL SIGNS: Reviewed. GENERAL: Well-developed in no acute distress. ABDOMEN: Soft. Nondistended. Nontender. PEG tube site clean dry and intact NEUROLOGIC: Alert and oriented. Cranial nerves II through XII grossly intact. ASSESSMENT: 1. Moderate protein calorie malnutrition 2. Aspiration pneumonia PLAN: -Patient can be discharge from surgical standpoint when medically cleared -Continue tube feeds as recommended per dietitian Physician Real Estate Salesperson note has been reviewed by physician. Signing provider agrees with the documented findings, assessment, and plan of care. Objective - Vital Signs Vital signs: Vital Signs Temp 97.8 F 12/28/23 11:25 Pulse 81 12/28/23 11:25 Resp 16 12/28/23 11:25 BP 148/87 12/28/23 11:25 Pulse Ox 95 12/28/23 08:16 FiO2 40 12/23/23 07:00 Intake & Output 12/27/23 12/28/23 12/28/23 18:59 06:59 18:59 Intake Total 700 Output Total 902 120 500 Balance -902 -120 200 Weight 52 kg Intake: Tube Feeding 700 Output: Urine 900 120 500 Stool 2 Other: Voiding Method Bedpan Urinal Urinal Urinal # Voids 2 - Labs CBC & Chem 7: 12/27/23 09:37 12/27/23 09:37 Labs: Abnormal Lab Results - Last 24 Hours (Table) 12/27/23 12/27/23 12/28/23 Range/Units 17:44 23:47 06:19 POC Glucose (mg/dL) 163 H 149 H 158 H (70-110) mg/dL 12/28/23 Range/Units 11:57 POC Glucose (mg/dL) 150 H (70-110) mg/dL
--- NOTE | 2023-12-28 15:07 | P.PN ---
Subjective Progress Note Date: 12/28/23 Principal diagnosis: Reason for follow-up is likely aspiration pneumonia Patient is a 63-year-old male with a past medical history significant for EtOH abuse DTs pulmonary fibrosis on home O2 recent admission to the hospital treated for DTs patient has been brought back to the hospital for evaluation of altered mental status and there was concern for possible aspirat ion pneumonia in this patient who did have a fever on presentation to the hospital. On today's visit that is 12/28/2023, patient has been afebrile, patient is breathing comfortably and is currently on 3 L nasal cannula oxygen, patient denies having any significant cough no chest pain shortness of breath, patient denies nausea vomiting or diarrhea and no abdominal pain mention he did have a good night sleep with the pain that was going to him last night and would like to have on discharge. No new labs has been repeated today Objective - Vital Signs Vital signs: Vital Signs Temp 97.8 F 12/28/23 11:25 Pulse 81 12/28/23 11:25 Resp 16 12/28/23 11:25 BP 148/87 12/28/23 11:25 Pulse Ox 95 12/28/23 08:16 FiO2 40 12/23/23 07:00 Intake & Output 12/27/23 12/28/23 12/28/23 18:59 06:59 18:59 Output Total 902 120 500 Balance -902 -120 -500 Weight 52 kg Output: Urine 900 120 500 Stool 2 Other: Voiding Method Bedpan Urinal Urinal Urinal # Voids 2 - Exam GENERAL DESCRIPTION: Middle-age male lying in bed in no distress RESPIRATORY SYSTEM: Unlabored breathing , decreased breath sounds at bases HEART: S1 S2 regular rate and rhythm , ABDOMEN: Soft , no tenderness EXTREMITIES: No edema feet - Labs CBC & Chem 7: 12/27/23 09:37 12/27/23 09:37 Labs: Abnormal Lab Results - Last 24 Hours (Table) 12/27/23 12/27/23 12/28/23 Range/Units 17:44 23:47 06:19 POC Glucose (mg/dL) 163 H 149 H 158 H (70-110) mg/dL 12/28/23 Range/Units 11:57 POC Glucose (mg/dL) 150 H (70-110) mg/dL Assessment and Plan (1) Aspiration pneumonia Current Visit: Yes Status: Acute Code(s): J69.0 - PNEUMONITIS DUE TO INHALATION OF FOOD AND VOMIT SNOMED Code(s): 576957937 (2) Leukocytosis Current Visit: Yes Status: Acute Code(s): D72.829 - ELEVATED WHITE BLOOD CELL COUNT, UNSPECIFIED SNOMED Code(s): 784455991 (3) Thrush Current Visit: Yes Status: Acute Code(s): B37.0 - CANDIDAL STOMATITIS SNOMED Code(s): 61084340 Plan: 1patient presented to hospital with sepsis in this patient who did have fever tachycardia elevated white count concerning for possible aspiration pneumonitis 2-blood and sputum culture so far negative, the patient MRSA nasal screen is negative 3- patient has received a 10-day course of Zosyn during this admission should have enough for his underlying pneumonia and no need for antibiotic on discharge this was discussed with the admitting physician working on discharge Dictation was produced using [employer] dictation software. please excuse any grammatical, word or spelling errors. Time with Patient: Less than 30
== END 2023-12-28 18:04 | disposition home health service (06) | DRG 871 ==
LOC: EC 23:36 → 4SSUR 12-17 03:39 → EEVIPCON 12-17 03:39 → 4SSUR 12-17 04:09 → 3SCARD 12-17 04:35 → 2SICU 12-17 07:15 → 3SCARD 12-23 15:24
PROVIDERS: ADMIT Internal Medicine; ATTEND Internal Medicine
PROC: 06HM33Z Insertion of Infusion Device into Right Femoral Vein, Percutaneous Approach (ICD-10-PCS; 2023-12-18)
PROC: 5A09457 Assistance with Respiratory Ventilation, 24-96 Consecutive Hours, Continuous Positive Airway Pressure (ICD-10-PCS; 2023-12-19)
PROC: 0D9670Z Drainage of Stomach with Drainage Device, Via Natural or Artificial Opening (ICD-10-PCS; 2023-12-23)
PROC: 3E0G76Z Introduction of Nutritional Substance into Upper GI, Via Natural or Artificial Opening (ICD-10-PCS; principal; 2023-12-26 07:30)
PROC: 0DH63UZ Insertion of Feeding Device into Stomach, Percutaneous Approach (ICD-10-PCS; principal; 2023-12-26 07:30)
DX: A41.9 Sepsis, unspecified organism (principal); E43 Unspecified severe protein-calorie malnutrition; J69.0 Pneumonitis due to inhalation of food and vomit; J96.21 Acute and chronic respiratory failure with hypoxia; G92.8 Other toxic encephalopathy; R64 Cachexia; B37.0 Candidal stomatitis; Z68.1 Body mass index [BMI] 19.9 or less, adult; F10.139 Alcohol abuse with withdrawal, unspecified; F11.20 Opioid dependence, uncomplicated; I27.20 Pulmonary hypertension, unspecified; D69.6 Thrombocytopenia, unspecified; J84.112 Idiopathic pulmonary fibrosis; L89.151 Pressure ulcer of sacral region, stage 1; I95.9 Hypotension, unspecified; I16.0 Hypertensive urgency; D53.9 Nutritional anemia, unspecified; F32.A Depression, unspecified; G25.81 Restless legs syndrome; Y90.0 Blood alcohol level of less than 20 mg/100 ml; F41.1 Generalized anxiety disorder; M19.90 Unspecified osteoarthritis, unspecified site; M48.00 Spinal stenosis, site unspecified; G89.29 Other chronic pain; M54.50 Low back pain, unspecified; M41.9 Scoliosis, unspecified; R79.89 Other specified abnormal findings of blood chemistry; R13.10 Dysphagia, unspecified; Z79.818 Long term (current) use of other agents affecting estrogen receptors and estrogen levels; Z79.899 Other long term (current) drug therapy; Z87.01 Personal history of pneumonia (recurrent); Z99.81 Dependence on supplemental oxygen
CPT/HCPCS: 36415; 36600; 43246; 51702; 70450; 71045; 74230; 80048; 80053; 80202; 80306; 80320; 81001; 82140; 82248; 82565; 82607; 82803; 82805; 83605; 83690; 83735; 83880; 84100; 84132; 84145; 84443; 84484; 85025; 85027; 85610; 85730; 86140; 87040; 87070; 87205; 87636; 93005; 94640; 94660; 94760; 95816; 96361; 96365; 96366; 96367; 96372; 96375; 96376; 99291

== ENCOUNTER 2024-01-01 13:54 | Inpatient (IN) | payer MEDICARE ==
[2024-01-01 14:54] LABS: ABG Base Excess 17.2 mmol/L; ABG Oxygen Saturation 99.3 % (94-97); ABG PCO2 57 mmHg (35-45); ABG PH 7.47 (7.35-7.45); ABG PO2 212 mmHg (83-108); ABG TCO2 43 mmol/L (19-24); Allen Test Performed? Yes
[2024-01-01 14:55] LABS: ABG HCO3 41 mmol/L (21-25)
[2024-01-01] MEDS: IPRATROPIUM 0.5 MG/2.5 ML NEBU INHALATION STA (14:59)
[2024-01-01] MEDS: ALBUTEROL NEBULIZED 2.5 MG/3 ML INHALATION STA (15:01)
[2024-01-01 15:03] LABS: Basophils % (A) 0 %; Eosinophils % (A) 0 %; HCT 50.3 % (39.0-53.0); Lymphocytes # (A) 0.4 k/uL (1.0-4.8); Lymphocytes % (A) 2 %; MCH 33.2 pg (25.0-35.0); MCHC 32.4 g/dL (31.0-37.0); MCV 102.6 fL (80.0-100.0); Macrocytosis Slight; Mean Platelet Volume 9.6; Monocytes # (A) 1.2 k/uL (0-1.0); Monocytes % (A) 5 %; Neutrophils # (A) 20.5 k/uL (1.3-7.7); Neutrophils % (A) 92 %; Platelet Count 395 k/uL (150-450); RDW 14.6 % (11.5-15.5); WBC 22.2 k/uL (3.8-10.6)
[2024-01-01 15:04] LABS: INR 0.8 (<1.2); Partial Thromboplastin Time 22.7 sec (22.0-30.0); Prothrombin Time 9.6 sec (10.0-12.5)
[2024-01-01 15:07] LABS: ALT 105 U/L (4-49); AST 60 U/L (17-59); African American GFR (CKD) >90 (>60 ml/min/1.73 sqM); Albumin 4.4 g/dL (3.5-5.0); Alkaline Phosphatase 170 U/L (38-126); Anion Gap 10 mmol/L; Blood Urea Nitrogen 30 mg/dL (9-20); Calcium 10.8 mg/dL (8.4-10.2); Carbon Dioxide 39 mmol/L (22-30); Chloride 84 mmol/L (98-107); Glucose 157 mg/dL (74-99); Magnesium 1.9 mg/dL (1.6-2.3); Non-African American GFR(CKD) >90 (>60 ml/min/1.73 sqM); Potassium 5.2 mmol/L (3.5-5.1); Sodium 133 mmol/L (137-145); Total Bilirubin 0.7 mg/dL (0.2-1.3); Total Protein 7.8 g/dL (6.3-8.2)
[2024-01-01 15:09] LABS: HGB 16.3 gm/dL (13.0-17.5)
--- NOTE | 2024-01-01 15:12 | ED ---
General Adult HPI - General Chief complaint: Shortness of Breath Stated complaint: SOB, post op complications Time Seen by Provider: 01/01/24 14:00 Source: patient, family, RN notes reviewed, old records reviewed Mode of arrival: ambulatory - History of Present Illness Initial comments: This is a 63-year-old male who presents to the emergency department with a past medical history significant for severe pulmonary fibrosis. Patient comes in stating that over the last 2 days his difficulty breathing is gotten considerably worse. Patient states he was recently here in the hospital for aspiration pneumonia. Patient had a PEG tube placed to help avoid some of this. Patient denies any fevers patient denies any chest pain or palpitations. - Related Data Home Medications Medication Instructions Recorded Confirmed Citalopram Hydrobromide [CeleXA] 40 mg PO DAILY 03/25/21 12/17/23 busPIRone HCL [Buspar] 7.5 mg PO BID 10/14/23 12/17/23 Cbd Gummies 20mg 10 - 20 mg PO QID PRN 12/17/23 12/17/23 Medihoney 80% Gel 1 applic TOPICAL DAILY 12/17/23 12/17/23 Megestrol Acetate 400 mg PO BID 12/17/23 12/17/23 Melatonin 2 mg PO HS 12/17/23 12/17/23 Melatonin 2 mg PO HS PRN 12/17/23 12/17/23 Previous Rx's Medication Instructions Recorded Folic Acid 1 mg PO DAILY #30 tab 03/30/21 ALPRAZolam [Xanax] 0.5 mg PO TID #9 tab 12/28/23 Acetaminophen Tab [Tylenol] 650 mg PO Q6HR PRN tab 12/28/23 Losartan [Cozaar] 50 mg PO DAILY #30 tab 12/28/23 Metoprolol Tartrate [Lopressor] 12.5 mg PO BID #60 tab 12/28/23 Morphine Sulfate 15 mg PO Q6H 3 Days #12 tab 12/28/23 predniSONE See Taper PO DIRECTED #30 tab 12/28/23 Allergies Allergy/AdvReac Type Severity Reaction Status Date / Time No Known Allergies Allergy Verified 01/01/24 14:03 Review of Systems ROS Statement: Those systems with pertinent positive or pertinent negative responses have been documented in the HPI. ROS Other: All systems not noted in ROS Statement are negative. Past Medical History Past Medical History: Musculoskeletal Disorder Additional Past Medical History / Comment(s): ETOH abuse, DTs, chronic low back pain/herniated discs/scoliosis/spinal stenosis, right shoulder, pulmonary fibrosis, Home O2 3L History of Any Multi-Drug Resistant Organisms: None Reported Past Surgical History: Orthopedic Surgery Additional Past Surgical History / Comment(s): R ankle fx with surgical repair- pin in and out, back injections at [facility]. Left knee Past Anesthesia/Blood Transfusion Reactions: No Reported Reaction Additional Past Anesthesia/Blood Transfusion Reaction / Comment(s): Pt has never received blood. Past Psychological History: Anxiety, Depression Smoking Status: Never smoker Past Alcohol Use History: None Reported Past Drug Use History: None Reported - Past Family History Father Family Medical History: Dementia Additional Family Medical History / Comment(s): Father is . Mother Family Medical History: Cancer Additional Family Medical History / Comment(s): Mother at age 64yrs of pancreatic cancer. General Exam - General Exam Comments Initial Comments: GENERAL: Patient is well-developed and well-nourished. Patient is nontoxic and well- hydrated and is in moderate distress. ENT: Neck is soft and supple. No significant lymphadenopathy is noted. Oropharynx is clear. Moist mucous membranes. Neck has full range of motion without eliciting any pain. EYES: The sclera were anicteric and conjunctiva were pink and moist. Extraocular movements were intact and pupils were equal round and reactive to light. Eyelids were unremarkable. PULMONARY: Patient has diminished breath sounds and crackles throughout CARDIOVASCULAR: There is a regular rate and rhythm without any murmurs gallops or rubs. ABDOMEN: Soft and nontender with normal bowel sounds. SKIN: Skin is clear with no lesions or rashes and otherwise unremarkable. NEUROLOGIC: Patient is alert and oriented x3. Cranial nerves II through XII are grossly intact. Motor and sensory are also intact. Normal speech, volume and content. Symmetrical smile. MUSCULOSKELETAL: Normal extremities with adequate strength and full range of motion. No lower extremity swelling or edema. No calf tenderness. LYMPHATICS: No significant lymphadenopathy is noted PSYCHIATRIC: Normal psychiatric evaluation. Course Vital Signs 01/01/24 01/01/24 01/01/24 14:00 15:00 15:15 Temperature 97.7 F Pulse Rate 101 H 94 90 Respiratory 26 H Rate Blood Pressure 139/80 O2 Sat by Pulse 84 L Oximetry 01/01/24 15:24 Temperature Pulse Rate 96 Respiratory Rate Blood Pressure O2 Sat by Pulse Oximetry Medical Decision Making - Medical Decision Making EKG is interpreted by myself but EKG shows a sinus rhythm at 87 bpm parables 124 QRS is 88 QT interval 353 QTc is 398. Patient's EKG shows no ST segment elevation. Was pt. sent in by a medical professional or institution (, [facility], HOSPITAL ACCOUNT LIAISON, urgent care, hospital, or residential...) When possible be specific @ -No Did you speak to anyone other than the patient for history (EMS, parent, family, police, friend...)? What history was obtained from this source @ -Patient's gives quite a bit of the history Did you review nursing and triage notes (agree or disagree)? Why? @ -I reviewed and agree with nursing and triage notes Were old charts reviewed (outside hosp., previous admission, EMS record, old EKG, old radiological studies, urgent care reports/EKG's, residential records)? Report findings @ -I reviewed the previous charts lab work and x-rays. I compared directly x- ray to x-ray on the chest x-rays. Differential Diagnosis (chest pain, altered mental status, abdominal pain women, abdominal pain men, vaginal bleeding, weakness, fever, dyspnea, syncope, headache, dizziness, GI bleed, back pain, seizure, CVA, palpatations, mental health, musculoskeletal)? @ -Not applicable EKG interpreted by me (3pts min.). @ -As above X-rays interpreted by me (1pt min.). @ -Chest x-ray shows infiltrate CT interpreted by me (1pt min.). @ -None done U/S interpreted by me (1pt. min.). @ -None done What testing was considered but not performed or refused? (CT, X-rays, U/S, labs)? Why? @ -None What meds were considered but not given or refused? Why? @ -None Did you discuss the management of the patient with other professionals (professionals i.e. [facility] Javed, HOSPITAL ACCOUNT LIAISON, lab, RT, psych nurse, social studies teacher, plywood layup line core feeder, teacher, information assurance officer, rn case management)? Give summary @ -I spoke with sound physicians they agreed to admit the patient admit the patient wrote admitting orders Was smoking cessation discussed for >3mins.? @ -No Was critical care preformed (if so, how long)? @ -No Were there social determinants of health that impacted care today? How? (Homelessness, low income, unemployed, alcoholism, drug addiction, transporta tion, low edu. Level, literacy, decrease access to med. care, residential, rehab)? @ -No Was there de-escalation of care discussed even if they declined (Discuss DNR or withdrawal of care, Hospice)? DNR status @ -No What co-morbidities impacted this encounter? (DM, HTN, Smoking, COPD, CAD, Cancer, CVA, ARF, Chemo, Hep., AIDS, mental health diagnosis, sleep apnea, morbid obesity)? @ -None Was patient admitted / discharged? Hospital course, mention meds given and route, prescriptions, significant lab abnormalities, going to OR and other pertinent info. @ -Patient was given a breathing treatment steroids and increase his oxygen to 4 L and he was feeling considerably better. X-ray did show questionable infiltrate so patient to get started on antibiotics. I spoke with Dr. Ramos she agreed to admit the patient admit the patient wrote admitting orders Undiagnosed new problem with uncertain prognosis? @ -No Drug Therapy requiring intensive monitoring for toxicity (Heparin, Nitro, Insulin, Cardizem)? @ -No Were any procedures done? @ -No Diagnosis/symptom? @ -Exacerbation pulmonary fibrosis Acute, or Chronic, or Acute on Chronic? @ -Acute on chronic Uncomplicated (without systemic symptoms) or Complicated (systemic symptoms)? @ -Complicated Side effects of treatment? @ -No Exacerbation, Progression, or Severe Exacerbation? @ -No Poses a threat to life or bodily function? How? (Chest pain, USA, CT, pneumonia, PE, COPD, DKA, ARF, appy, cholecystitis, CVA, Diverticulitis, Homicidal, Suicidal, threat to staff... and all critical care pts) @ -No Diagnosis/symptom? @ -Respiratory distress Acute, or Chronic, or Acute on Chronic? @ -Acute Uncomplicated (without systemic symptoms) or Complicated (systemic symptoms)? @ -Complicated Side effects of treatment? @ -None Exacerbation, Progression, or Severe Exacerbation] @ -No Poses a threat to life or bodily function? @ -Yes this can lead to hypoxia and endorgan dysfunction - Lab Data Result diagrams: 01/01/24 14:47 04/07/24 14:47 Lab Results 01/01/24 01/01/24 01/01/24 Range/Units 14:16 14:47 14:47 WBC 22.2 H (3.8-10.6) k/uL RBC 4.90 (4.30-5.90) m/uL Hgb 16.3 D (13.0-17.5) gm/dL Hct 50.3 (39.0-53.0) % MCV 102.6 H (80.0-100.0) fL MCH 33.2 (25.0-35.0) pg MCHC 32.4 (31.0-37.0) g/dL RDW 14.6 (11.5-15.5) % Plt Count 395 (150-450) k/uL MPV 9.6 Neutrophils % 92 % Lymphocytes % 2 % Monocytes % 5 % Eosinophils % 0 % Basophils % 0 % Neutrophils # 20.5 H (1.3-7.7) k/uL Lymphocytes # 0.4 L (1.0-4.8) k/uL Monocytes # 1.2 H (0-1.0) k/uL Eosinophils # 0.0 (0-0.7) k/uL Basophils # 0.0 (0-0.2) k/uL Macrocytosis Slight PT 9.6 L (10.0-12.5) sec INR 0.8 (<1.2) APTT 22.7 (22.0-30.0) sec Sample Site rbrach ABG pH 7.47 H (7.35-7.45) ABG pCO2 57 H (35-45) mmHg ABG pO2 212 H (83-108) mmHg ABG HCO3 41 H* (21-25) mmol/L ABG Total CO2 43 H (19-24) mmol/L ABG O2 Saturation 99.3 H (94-97) % ABG Base Excess 17.2 mmol/L Varghese Test Yes FiO2 44 % Sodium (137-145) mmol/L Potassium (3.5-5.1) mmol/L Chloride (98-107) mmol/L Carbon Dioxide (22-30) mmol/L Anion Gap mmol/L BUN (9-20) mg/dL Creatinine (0.66-1.25) mg/dL Est GFR (CKD-EPI)AfAm (>60 ml/min/1.73 sqM) Est GFR (CKD-EPI)NonAf (>60 ml/min/1.73 sqM) Glucose (74-99) mg/dL Plasma Lactic Acid Cooper (0.7-2.0) mmol/L Calcium (8.4-10.2) mg/dL Magnesium (1.6-2.3) mg/dL Total Bilirubin (0.2-1.3) mg/dL AST (17-59) U/L ALT (4-49) U/L Alkaline Phosphatase (38-126) U/L Troponin I (0.000-0.034) ng/mL NT-Pro-B Natriuret Pep pg/mL Total Protein (6.3-8.2) g/dL Albumin (3.5-5.0) g/dL 01/01/24 01/01/24 01/01/24 Range/Units 14:47 14:47 14:47 WBC (3.8-10.6) k/uL RBC (4.30-5.90) m/uL Hgb (13.0-17.5) gm/dL Hct (39.0-53.0) % MCV (80.0-100.0) fL MCH (25.0-35.0) pg MCHC (31.0-37.0) g/dL RDW (11.5-15.5) % Plt Count (150-450) k/uL MPV Neutrophils % % Lymphocytes % % Monocytes % % Eosinophils % % Basophils % % Neutrophils # (1.3-7.7) k/uL Lymphocytes # (1.0-4.8) k/uL Monocytes # (0-1.0) k/uL Eosinophils # (0-0.7) k/uL Basophils # (0-0.2) k/uL Macrocytosis PT (10.0-12.5) sec INR (<1.2) APTT (22.0-30.0) sec Sample Site ABG pH (7.35-7.45) ABG pCO2 (35-45) mmHg ABG pO2 (83-108) mmHg ABG HCO3 (21-25) mmol/L ABG Total CO2 (19-24) mmol/L ABG O2 Saturation (94-97) % ABG Base Excess mmol/L Varghese Test FiO2 % Sodium 133 L (137-145) mmol/L Potassium 5.2 H (3.5-5.1) mmol/L Chloride 84 L (98-107) mmol/L Carbon Dioxide 39 H (22-30) mmol/L Anion Gap 10 mmol/L BUN 30 H (9-20) mg/dL Creatinine 0.69 (0.66-1.25) mg/dL Est GFR (CKD-EPI)AfAm >90 (>60 ml/min/1.73 sqM) Est GFR (CKD-EPI)NonAf >90 (>60 ml/min/1.73 sqM) Glucose 157 H (74-99) mg/dL Plasma Lactic Acid Cooper 2.4 H* (0.7-2.0) mmol/L Calcium 10.8 H (8.4-10.2) mg/dL Magnesium 1.9 (1.6-2.3) mg/dL Total Bilirubin 0.7 (0.2-1.3) mg/dL AST 60 H (17-59) U/L ALT 105 H (4-49) U/L Alkaline Phosphatase 170 H (38-126) U/L Troponin I 0.015 (0.000-0.034) ng/mL NT-Pro-B Natriuret Pep 527 pg/mL Total Protein 7.8 (6.3-8.2) g/dL Albumin 4.4 (3.5-5.0) g/dL Disposition Clinical Impression: Acute exacerbation of idiopathic pulmonary fibrosis Disposition: ADMITTED IP TO THIS HOSP Referrals: Brian Arzola DO [Primary Care Provider] - 1-2 days Time of Disposition: 15:52
[2024-01-01 15:15] LABS: NT-Pro-B-Type Natriuretic Pept 527 pg/mL
[2024-01-01] MEDS: KETOROLAC 15 MG/ML 1 ML VIAL IVP STA (15:25)
[2024-01-01] MEDS: SODIUM CHLORIDE 0.9% 1,000 ML IV ONE (15:26)
[2024-01-01] MEDS: methylPREDNISolone SOD SUCCI 125 MG/2 ML VIAL IV STA (15:26)
[2024-01-01] MEDS: PIPERACILLIN-TAZOBACTAM 3.375 GM in SODIUM CHLORIDE 0.9% 100 ML IVPB STA (15:26)
[2024-01-01] MEDS: MORPHINE SULFATE 2 MG/ML SYRINGE IVP STA (15:53)
[2024-01-01] MEDS ORDERED: IPRATROPIUM-ALBUTEROL 3 ML NEB INHALATION PRN (15:54)
[2024-01-01] MEDS ORDERED: NALOXONE 0.4 MG/ML 1 ML VIAL IVP PRN (15:54)
--- NOTE | 2024-01-01 17:45 | P.HPIM ---
History of Present Illness H&P Date: 01/01/24 Chief Complaint: chills, shakes, generalized weakness 63 year old man with history of pulmonary fibrosis with chronic respiratory failure on 3 and half liters nasal cannula at home, hypertension, previous history of EtOH abuse presented for evaluation of chills, shakes, generalized weakness. Patient was recently seen in our hospital and discharged for metabolic encephalopathy, sepsis secondary to aspiration pneumonia. After the hospitalization, he was discharged with a PEG tube due to failed swallow. At home, he has been having bolus tube feeds and tolerating well, being seen by speech therapy for practice swallowing with ice chips. Patient says that over the last 24 hours he started develop chills, shakes, generalized weakness. He did check his temperature and it was as low as 95.5. Otherwise, denies nausea, vomiting, chest pain, palpitations, abdominal pain, diarrhea, constipation In the emergency room, patient was afebrile, 124/88, heart rate 91, 100% on 6 L of nasal cannula. CBC demonstrated leukocytosis to 22.2. Basic metabolic panel showed sodium of 133, potassium 5.2, chloride of 84, CO2 of 39. Liver function test showed AST of 60, ALT of 170, alkaline phosphatase of 170, total bilirubin of 0.7. Troponin was 0.015, BNP was 527. ABG demonstrated pH of 7.47, pCO2 of 57, pO2 of 212. EKG showed sinus rhythm with peaked P waves. Chest x-ray appears to have chronic interstitial fibrotic changes bilaterally, worse on the right, and appears similar to prior. Case was discussed with the emergency room provider and decision was made to make the patient observation. All Systems reviewed and pertinent positives and negatives noted in HPI, all other symptoms are negative Gen: in no apparent distress, resting comfortably in bed Eyes: PERRL, no scleral injection or icterus HENT: normocephalic, atraumatic, good hearing acuity, moist mucous membranes Neck: no tracheal deviation, full range of motion Resp: good air exchange, breathing comfortably with no accessory muscle use, no tactile fremitus, clear to auscultation bilaterally CVS: good distal perfusion x 4, no pitting edema, regular rate and rhythm without murmurs GI: soft, NTTP, ND, no hepatosplenomegaly : no suprapubic tenderness, no CVAT, her catheter not present MSK: no clubbing, no cyanosis, no noted contractures of extremities, Skin: Livedo reticularis most prominent above the knees bilaterally, no petechiae; temperature of skin is appropriate Neuro: moving all extremities without signs of weakness, CN II-XII intact Psych: cooperative, euthymic mood, insight and judgment intact Labs and imaging as above Assessment/plan: Leukocytosis Chills, Shakes Aspiration Event -admit to inpatient -zosyn -pulm consult -aspiration precautions Severe protein calorie malnutrition Cachexia -nutrition consult -TFs -ST consult Pulmonary Fibrosis Chronic Hypoxemic Respiratory Failure Restrictive Lung Disease Levido Reticularis -pulmonary consult -oxygen PRN -RUBY, RF, anti-Scl-70, anti-RNA polymerase III History of ETOH abuse HTN -Home medication reconciliation pending home med history Pt is Full Code DVT PPx enoxaparin 30mg SQ Past Medical History Past Medical History: Musculoskeletal Disorder Additional Past Medical History / Comment(s): ETOH abuse, DTs, chronic low back pain/herniated discs/scoliosis/spinal stenosis, right shoulder, pulmonary fibrosis, Home O2 3L History of Any Multi-Drug Resistant Organisms: None Reported Past Surgical History: Orthopedic Surgery Additional Past Surgical History / Comment(s): R ankle fx with surgical repair- pin in and out, back injections at [facility]. Left knee Past Anesthesia/Blood Transfusion Reactions: No Reported Reaction Additional Past Anesthesia/Blood Transfusion Reaction / Comment(s): Pt has never received blood. Past Psychological History: Anxiety, Depression Smoking Status: Never smoker Past Alcohol Use History: None Reported Past Drug Use History: None Reported - Past Family History Father Family Medical History: Dementia Additional Family Medical History / Comment(s): Father is . Mother Family Medical History: Cancer Additional Family Medical History / Comment(s): Mother at age 64yrs of pancreatic cancer. Medications and Allergies Home Medications Medication Instructions Recorded Confirmed Type Citalopram Hydrobromide [CeleXA] 40 mg PO DAILY 03/25/21 12/17/23 History Folic Acid 1 mg PO DAILY #30 tab 03/30/21 12/17/23 Rx busPIRone HCL [Buspar] 7.5 mg PO BID 10/14/23 12/17/23 History Cbd Gummies 20mg 10 - 20 mg PO QID PRN 12/17/23 12/17/23 History Medihoney 80% Gel 1 applic TOPICAL DAILY 12/17/23 12/17/23 History Megestrol Acetate 400 mg PO BID 12/17/23 12/17/23 History Melatonin 2 mg PO HS 12/17/23 12/17/23 History Melatonin 2 mg PO HS PRN 12/17/23 12/17/23 History ALPRAZolam [Xanax] 0.5 mg PO TID #9 tab 12/28/23 Rx Acetaminophen Tab [Tylenol] 650 mg PO Q6HR PRN tab 12/28/23 Rx Losartan [Cozaar] 50 mg PO DAILY #30 tab 12/28/23 Rx Metoprolol Tartrate [Lopressor] 12.5 mg PO BID #60 tab 12/28/23 Rx Morphine Sulfate 15 mg PO Q6H 3 Days #12 tab 12/28/23 Rx predniSONE See Taper PO DIRECTED #30 tab 12/28/23 Rx Allergies Allergy/AdvReac Type Severity Reaction Status Date / Time No Known Allergies Allergy Verified 01/01/24 16:23 Physical Exam Osteopathic Statement: *. No significant issues noted on an osteopathic structural exam other than those noted in the History and Physical/Consult. Vitals: Vital Signs Temp Pulse Resp BP Pulse Ox 01/01/24 16:58 97.9 F 01/01/24 16:35 90 23 140/95 100 01/01/24 16:00 97.7 F 89 22 132/87 100 01/01/24 15:50 97.6 F 91 24 124/88 100 01/01/24 15:24 96 01/01/24 15:15 90 01/01/24 15:00 94 01/01/24 14:10 22 96 01/01/24 14:00 97.7 F 101 H 26 H 139/80 84 L Intake and Output 01/01/24 01/01/24 01/01/24 06:59 14:59 22:59 Other: Weight 48.988 kg Results CBC & Chem 7: 01/01/24 14:47 01/01/24 14:47 Labs: Abnormal Lab Results - Last 24 Hours (Table) 01/01/24 01/01/24 01/01/24 Range/Units 14:16 14:47 14:47 WBC 22.2 H (3.8-10.6) k/uL MCV 102.6 H (80.0-100.0) fL Neutrophils # 20.5 H (1.3-7.7) k/uL Lymphocytes # 0.4 L (1.0-4.8) k/uL Monocytes # 1.2 H (0-1.0) k/uL PT 9.6 L (10.0-12.5) sec ABG pH 7.47 H (7.35-7.45) ABG pCO2 57 H (35-45) mmHg ABG pO2 212 H (83-108) mmHg ABG HCO3 41 H* (21-25) mmol/L ABG Total CO2 43 H (19-24) mmol/L ABG O2 Saturation 99.3 H (94-97) % Sodium (137-145) mmol/L Potassium (3.5-5.1) mmol/L Chloride (98-107) mmol/L Carbon Dioxide (22-30) mmol/L BUN (9-20) mg/dL Glucose (74-99) mg/dL Plasma Lactic Acid Cooper (0.7-2.0) mmol/L Calcium (8.4-10.2) mg/dL AST (17-59) U/L ALT (4-49) U/L Alkaline Phosphatase (38-126) U/L 01/01/24 01/01/24 Range/Units 14:47 14:47 WBC (3.8-10.6) k/uL MCV (80.0-100.0) fL Neutrophils # (1.3-7.7) k/uL Lymphocytes # (1.0-4.8) k/uL Monocytes # (0-1.0) k/uL PT (10.0-12.5) sec ABG pH (7.35-7.45) ABG pCO2 (35-45) mmHg ABG pO2 (83-108) mmHg ABG HCO3 (21-25) mmol/L ABG Total CO2 (19-24) mmol/L ABG O2 Saturation (94-97) % Sodium 133 L (137-145) mmol/L Potassium 5.2 H (3.5-5.1) mmol/L Chloride 84 L (98-107) mmol/L Carbon Dioxide 39 H (22-30) mmol/L BUN 30 H (9-20) mg/dL Glucose 157 H (74-99) mg/dL Plasma Lactic Acid Cooper 2.4 H* (0.7-2.0) mmol/L Calcium 10.8 H (8.4-10.2) mg/dL AST 60 H (17-59) U/L ALT 105 H (4-49) U/L Alkaline Phosphatase 170 H (38-126) U/L
[2024-01-01] MEDS ORDERED: ZINC OXIDE PASTE (Z-GUARD) 1 APPLIC TOPICAL PRN (18:43)
--- NOTE | 2024-01-01 20:09 | XR ---
EXAMINATION TYPE: XR chest 2V DATE OF EXAM: 01/01/2024 3:37 PM CLINICAL INDICATION:Male, 63 years old with history of difficulty breathing; [facility] COMPARISON: 12/23/2023 and before TECHNIQUE: XR chest 2V. Frontal and lateral views of the chest.. FINDINGS: Lines/Tubes/Devices: EKG leads and other extrinsic structures overlie the chest. No indwelling lines are seen. Heart/mediastinum: Heart size upper normal, likely also exaggerated by the low lung volumes. Aorta ap pears tortuous and unfolded. Trachea bows to the right but appears patent. Pulmonary vascularity: Not increased, Lungs/Pleura: Moderately to severely coarsened interstitial markings redemonstrated, similar to sever al priors, suggesting a background of interstitial lung disease. Bibasilar stranding may represent sc arring or atelectasis. No superimposed acute consolidation, sizable effusion, or pneumothorax. Musculoskeletal: Degenerative changes of the spine and shoulders without clear evidence of acute bony abnormality. Other findings: Included upper abdomen shows gaseous distention of stomach and bowel with fluid level s. No free air suggested. IMPRESSION: 1. Chronic lung changes, with low lung volumes and mild bibasilar subsegmental atelectasis versus sc arring. Correlate for history of interstitial lung disease. 2. Abnormal bowel gas pattern, suggests possible obstruction or severe ileus.
[2024-01-01] MEDS: MELATONIN 3 MG TABLET PEG/G-TUBE SCH (20:29)
[2024-01-01] MEDS: guaiFENesin SYRUP 100MG/5ML 200 MG/10 ML CUP PEG/G-TUBE SCH (20:29)
[2024-01-01] MEDS: MORPHINE SULFATE IR 15 MG TABLET PEG/G-TUBE SCH (20:29)
[2024-01-01] MEDS: busPIRone HCl 5 MG TAB PEG/G-TUBE SCH (20:29)
[2024-01-01] MEDS: ALPRAZolam 0.5 MG TAB PEG/G-TUBE SCH (20:30)
[2024-01-01] MEDS: METOPROLOL TARTRATE 12.5 MG TAB PEG/G-TUBE SCH (20:30)
[2024-01-01] MEDS: methylPREDNISolone SOD SUCCI 125 MG/2 ML VIAL IV SCH (20:30)
[2024-01-01] MEDS: IPRATROPIUM-ALBUTEROL 3 ML NEB INHALATION SCH (20:51)
[2024-01-01] MEDS: PIPERACILLIN-TAZOBACTAM 3.375 GM in SODIUM CHLORIDE 0.9% 100 ML IVPB SCH (23:34)
[2024-01-02 00:27] LABS: Glucose,Whole Blood 144 mg/dL (70-110)
--- NOTE | 2024-01-02 01:32 | CT ---
EXAMINATION TYPE: CT abdomen pelvis w con DATE OF EXAM: 01/02/2024 COMPARISON: Chest x-ray one day earlier HISTORY: abnormal gas pattern on cxr CT DLP: 633.7 mGycm, Automated Exposure Control for Dose Reduction was Utilized. CONTRAST: CT scan of the abdomen and pelvis is performed with oral and with IV Contrast, patient injected with 100 mL of Isovue 300. FINDINGS: LUNG BASES: Chronic parenchymal changes in the right lung with bronchiectasis is redemonstrated. Prom inent bilateral pulmonary arteries noted. Coronary artery calcification is seen. LIVER/GB: No significant abnormality is appreciated. PANCREAS: No significant abnormality is seen. SPLEEN: No significant abnormality is seen. ADRENALS: No significant abnormality is seen. KIDNEYS: No significant abnormality is seen. BOWEL: PEG tube is satisfactory in position. No suspicious dilatation of stomach. Prominent debris fi lled cecum and right colon. No abnormal small bowel dilatation. PROSTATE/SEMINAL VESICLES: Prostate gland normal in size. Multiple small bilateral calcified pelvic p hleboliths are seen LYMPH NODES: No greater than 1cm abdominal or pelvic lymph nodes are appreciated. OSSEOUS STRUCTURES: Prominent levoconvex scoliosis centered at L3-L4 level. Straightening of the thor acolumbar spine on sagittal images. Multilevel mild to moderate spurring and disc space narrowing thr oughout the lumbar spine is seen. Moderate axial joint space loss of both hips is present. OTHER: No significant additional abnormality is seen. IMPRESSION: Overall nonspecific but felt to be nonobstructive bowel gas pattern.
--- NOTE | 2024-01-02 03:58 | P.CNPUL ---
History of Present Illness Consult date: 01/02/24 Requesting physician: Giles Keith Reason for consult: pulmonary fibrosis Chief complaint: Shortness of breath History of present illness: Patient is a 63-year-old white male with past medical history significant for advanced pulmonary fibrosis and restrictive lung disease treated with Ofev, previous ventilator dependent respiratory failure, alcoholism. Patient did have a recent prolonged and complicated hospitalization 12/16/2023 through 12/28/2023. He was treated for aspiration pneumonia. He did undergo a swallow evaluation showed aspiration with various consistencies. He did have a a PEG tube placed 12/26/2023. Patient returned to the emergency room yesterday afternoon complaining of severe weakness. He has no other specific complaints. He denies any change in his chronic shortness of breath. He does have a chronic cough. Currently, he is producing some clear sputum. No fevers. No chest pain. A follow-up chest x-ray showed chronic lung changes with low lung volumes and mild bibasilar atelectasis. Improvement in the patient's previous consolidative lung infiltrates. There is abnormal gas pattern suggestive of possible obstruction or severe ileus. This was followed up with an abdominal and pelvis CT which showed a likely nonobstructive bowel gas pattern. Patient is currently lying in bed on 4 L/min nasal cannula, in no acute distress. He actually has no specific complaints other than generalized and severe weakness. He has had to use a wheelchair to get around. His daughter and son-in-law have moved in to help him. He has been using his PEG tube for bolus feeding. Denies nausea, vomiting, abdominal pain. He has had loose bowel movements. He has not been able to take his Ofev, he states that size maker does not recommend crushing and putting through PEG tube. An ABG was done in the emergency room, which showed a component of compensated chronic hypercapnic respiratory failure. CBC on arrival: WBC count 22, hemoglobin 16.3, hematocrit 50.3, platelets 395. CMP on arrival: Sodium 133, potassium 5.2, chloride 84, serum bicarb 39, BUN 30, creatinine 0.69, glucose 157. Lactic acid level 2.7 down to 1.7. LFTs mildly elevated. Troponin 0.015. NT proBNP 527. In the emergency room, the patient was continued on Zosyn. Currently afebrile. Hemodynamically stable. Review of Systems REVIEW OF SYSTEMS: CONSTITUTIONAL: Denies any recent significant weight loss or weight gain. Admits generalized weakness and malaise. Denies fevers. EYES: Denies change in vision. EARS, NOSE, MOUTH, THROAT: Denies headaches, denies sore throat. CARDIOVASCULAR: Denies chest pain, palpitations or syncopal episodes. RESPIRATORY: See HPI. GASTROINTESTINAL: Denies change in appetite, abdominal pain, nausea and vomiting, or diarrhea GENITOURINARY: Denies hematuria, denies infections. MUSKULOSKELETAL: Denies pain, denies swelling. INTEGUMENTARY: Denies rash, denies eczema. NEUROLOGICAL: Denies recent memory loss, no recent seizure activity. PSYCHIATRIC: Denies anxiety, denies depression. HEMATOLOGIC/LYMPHATIC: Denies anemia, denies enlarged lymph node Past Medical History Past Medical History: Musculoskeletal Disorder Additional Past Medical History / Comment(s): ETOH abuse, DTs, chronic low back pain/herniated discs/scoliosis/spinal stenosis, right shoulder, pulmonary fibrosis, Home O2 3L History of Any Multi-Drug Resistant Organisms: None Reported Past Surgical History: Orthopedic Surgery Additional Past Surgical History / Comment(s): R ankle fx with surgical repair- pin in and out, back injections at [facility]. Left knee Past Anesthesia/Blood Transfusion Reactions: No Reported Reaction Additional Past Anesthesia/Blood Transfusion Reaction / Comment(s): Pt has never received blood. Past Psychological History: Anxiety, Depression Smoking Status: Never smoker Past Alcohol Use History: None Reported Past Drug Use History: None Reported - Past Family History Father Family Medical History: Dementia Additional Family Medical History / Comment(s): Father is . Mother Family Medical History: Cancer Additional Family Medical History / Comment(s): Mother at age 64yrs of pancreatic cancer. Medications and Allergies Home Medications Medication Instructions Recorded Confirmed Type Citalopram Hydrobromide [CeleXA] 40 mg PEG/G-TUBE DAILY 03/25/21 01/01/24 History busPIRone HCL [Buspar] 7.5 mg PEG/G-TUBE BID 10/14/23 01/01/24 History Medihoney 80% Gel 1 applic TOPICAL DAILY 12/17/23 01/01/24 History ALPRAZolam [Xanax] 0.5 mg PEG/G-TUBE TID 01/01/24 01/01/24 History Acetaminophen Oral Susp [Tylenol] 640 mg PEG/G-TUBE Q4-6H PRN 01/01/24 01/01/24 History Folic Acid 1 mg PEG/G-TUBE DAILY 01/01/24 01/01/24 History Losartan [Cozaar] 50 mg PEG/G-TUBE DAILY 01/01/24 01/01/24 History Melatonin 1.5 mg PEG/G-TUBE HS 01/01/24 01/01/24 History Metoprolol Tartrate [Lopressor] 12.5 mg PEG/G-TUBE BID 01/01/24 01/01/24 History Morphine Sulfate 15 mg PEG/G-TUBE Q6H 01/01/24 01/01/24 History Nintedanib Esylate [Ofev] 150 mg PO DIRECTED 01/01/24 01/01/24 History guaiFENesin [guaiFENesin Oral 400 mg PEG/G-TUBE BID 01/01/24 01/01/24 History Solution] predniSONE See Taper PEG/G-TUBE DIRECTED 01/01/24 01/01/24 History Allergies Allergy/AdvReac Type Severity Reaction Status Date / Time No Known Allergies Allergy Verified 01/01/24 17:30 Physical Exam Vitals: Vital Signs Temp Pulse Pulse Resp BP BP Pulse Ox 01/01/24 23:32 97.6 F 78 18 125/79 97 01/01/24 21:00 92 01/01/24 20:53 89 01/01/24 20:00 98.2 F 89 18 138/82 96 01/01/24 16:58 97.9 F 01/01/24 16:35 90 23 140/95 100 01/01/24 16:12 97.6 F 84 18 137/88 100 01/01/24 16:00 97.7 F 89 22 132/87 100 01/01/24 15:50 97.6 F 91 24 124/88 100 01/01/24 15:24 96 01/01/24 15:15 90 01/01/24 15:00 94 01/01/24 14:10 22 96 01/01/24 14:00 97.7 F 101 H 26 H 139/80 84 L Intake and Output 01/01/24 01/01/24 01/02/24 14:59 22:59 06:59 Output Total 200 Balance -200 Output: Urine 200 Other: Voiding Method Urinal Urinal Weight 48.988 kg 48.988 kg GENERAL EXAM: Alert, 63-year-old white male, pleasant, cachectic, comfortable in no apparent distress. Requires assistance to sit up in bed. HEAD: Normocephalic and atraumatic EYES: Normal reaction of pupils, equal size. NOSE: Clear with pink turbinates. THROAT: No erythema or exudates. NECK: No masses, no JVD. CHEST: No chest wall deformity. LUNGS: Equal air entry with inspiratory bibasilar Velcro crackles. On 4 L/min nasal cannula. No conversational dyspnea or accessory muscle use while at rest. CVS: S1 and S2 normal with no audible murmur, regular rhythm. No extra heart sounds ABDOMEN: No hepatosplenomegaly, active bowel sounds, no guarding or rigidity. PEG tube site clean, dry, without any drainage. SPINE: No scoliosis or deformity SKIN: No rashes CENTRAL NERVOUS SYSTEM: No focal deficits, tone is normal in all 4 extremities. EXTREMITIES: There is no peripheral edema, clubbing, or cyanosis. Peripheral pulses are intact. Results - Laboratory Findings CBC and BMP: 01/01/24 14:47 01/01/24 14:47 ABG ABG pH 7.47 (7.35-7.45) H 01/01/24 14:16 ABG pCO2 57 mmHg (35-45) H 01/01/24 14:16 ABG pO2 212 mmHg (83-108) H 01/01/24 14:16 ABG O2 Saturation 99.3 % (94-97) H 01/01/24 14:16 PT/INR, D-dimer PT 9.6 sec (10.0-12.5) L 01/01/24 14:47 INR 0.8 (<1.2) 01/01/24 14:47 Abnormal lab findings: Abnormal Labs 01/01/24 01/01/24 01/01/24 14:16 14:47 14:47 WBC 22.2 H MCV 102.6 H Neutrophils # 20.5 H Lymphocytes # 0.4 L Monocytes # 1.2 H PT 9.6 L ABG pH 7.47 H ABG pCO2 57 H ABG pO2 212 H ABG HCO3 41 H* ABG Total CO2 43 H ABG O2 Saturation 99.3 H Sodium Potassium Chloride Carbon Dioxide BUN Glucose POC Glucose (mg/dL) Plasma Lactic Acid Cooper Calcium AST ALT Alkaline Phosphatase 01/01/24 01/01/24 01/01/24 14:47 14:47 18:30 WBC MCV Neutrophils # Lymphocytes # Monocytes # PT ABG pH ABG pCO2 ABG pO2 ABG HCO3 ABG Total CO2 ABG O2 Saturation Sodium 133 L Potassium 5.2 H Chloride 84 L Carbon Dioxide 39 H BUN 30 H Glucose 157 H POC Glucose (mg/dL) Plasma Lactic Acid Cooper 2.4 H* 2.7 H* Calcium 10.8 H AST 60 H ALT 105 H Alkaline Phosphatase 170 H 01/02/24 00:25 WBC MCV Neutrophils # Lymphocytes # Monocytes # PT ABG pH ABG pCO2 ABG pO2 ABG HCO3 ABG Total CO2 ABG O2 Saturation Sodium Potassium Chloride Carbon Dioxide BUN Glucose POC Glucose (mg/dL) 144 H Plasma Lactic Acid Cooper Calcium AST ALT Alkaline Phosphatase - Diagnostic Findings Chest x-ray: image reviewed Assessment and Plan Assessment: Acute on chronic hypoxemic respiratory failure, follow-up chest x-ray shows improvement in the patient's previous superimposed lung consolidations. There are chronic lung changes with low lung volumes and mild bibasilar atelectasis versus scarring. Recent hospital admission for suspected aspiration pneumonia, patient continues on Zosyn. Micro negative from recent admission. Acute leukocytosis Interstitial pulmonary fibrosis, previously maintained on Ofev Chronic hypoxemic respiratory failure, secondary to above, normally maintained on 3 L/min nasal cannula Chronic hypercapnic respiratory failure Severe generalized weakness and deconditioning Severe protein calorie malnutrition Dysphagia, status post PEG tube insertion on 12/26/2023, has been giving himself bolus feeds at home. History of alcoholism Osteoarthritis Chronic back pain Plan: Patient's medications, labs, imaging were reviewed Continue supplemental oxygen Antibiotics were resumed in the emergency room. Check procalcitonin level Patient was also started on high-dose Solu-Medrol. He has not been able to take his Ofev, states that it is contraindicated to crush and put down his PEG tube. Consult dietary for tube feeding Resume aspiration precautions and nothing by mouth. Overall prognosis is guarded related to above-mentioned comorbidities. I have personally seen and examined the patient, performed the documentation and the assessment and plan as written. Number of minutes spent on the visit:20 Time with Patient: Greater than 30
[2024-01-02] MEDS: MORPHINE SULFATE 2 MG/ML SYRINGE IVP STA (04:30)
[2024-01-02 05:51] LABS: Glucose,Whole Blood 127 mg/dL (70-110)
[2024-01-02] MEDS: CITALOPRAM HYDROBROMIDE 20 MG TAB PEG/G-TUBE SCH (09:00)
[2024-01-02] MEDS ORDERED: MEDIHONEY TOPICAL SCH (09:00)
[2024-01-02] MEDS: LOSARTAN 50 MG TAB PEG/G-TUBE SCH (09:01)
[2024-01-02] MEDS: FOLIC ACID 1 MG TAB PEG/G-TUBE SCH (09:01)
[2024-01-02] MEDS: ACETAMINOPHEN TAB 325 MG TAB PO PRN (09:01)
[2024-01-02] MEDS: ENOXAPARIN 30 MG/0.3 ML SYRINGE SQ SCH (09:03)
[2024-01-02 09:15] LABS: Basophils % (A) 0 %; Eosinophils % (A) 0 %; HCT 40.9 % (39.0-53.0); HGB 13.5 gm/dL (13.0-17.5); Lymphocytes # (A) 0.3 k/uL (1.0-4.8); Lymphocytes % (A) 1 %; MCH 34.2 pg (25.0-35.0); MCV 103.9 fL (80.0-100.0); Macrocytosis Slight; Mean Platelet Volume 9.7; Monocytes # (A) 0.7 k/uL (0-1.0); Monocytes % (A) 3 %; Neutrophils # (A) 24.1 k/uL (1.3-7.7); Neutrophils % (A) 95 %; Platelet Count 313 k/uL (150-450); RBC 3.94 m/uL (4.30-5.90); RDW 14.7 % (11.5-15.5); WBC 25.2 k/uL (3.8-10.6)
[2024-01-02 09:32] LABS: African American GFR (CKD) >90 (>60 ml/min/1.73 sqM); Anion Gap 6 mmol/L; Blood Urea Nitrogen 22 mg/dL (9-20); Calcium 9.2 mg/dL (8.4-10.2); Carbon Dioxide 34 mmol/L (22-30); Chloride 92 mmol/L (98-107); Glucose 112 mg/dL (74-99); Magnesium 1.8 mg/dL (1.6-2.3); Non-African American GFR(CKD) >90 (>60 ml/min/1.73 sqM); Potassium 5.3 mmol/L (3.5-5.1); Sodium 132 mmol/L (137-145)
--- NOTE | 2024-01-02 09:56 | P.PN ---
Subjective Progress Note Date: 01/02/24 No new complaints. Pt is feeling much better. Worried about his knee rash. Breathing has improved. Chills have improved. Gen: in no apparent distress, resting comfortably in bed Eyes: PERRL, no scleral injection or icterus HENT: normocephalic, atraumatic, good hearing acuity, moist mucous membranes Neck: no tracheal deviation, full range of motion Resp: good air exchange, breathing comfortably with no accessory muscle use, no tactile fremitus, clear to auscultation bilaterally CVS: good distal perfusion x 4, no pitting edema, regular rate and rhythm without murmurs GI: soft, NTTP, ND, no hepatosplenomegaly : no suprapubic tenderness, no CVAT, her catheter not present MSK: no clubbing, no cyanosis, no noted contractures of extremities, Skin: stage I sacral decubitus ulcer, Livedo reticularis most prominent above the knees bilaterally, no petechiae; temperature of skin is appropriate Neuro: moving all extremities without signs of weakness, CN II-XII intact Psych: cooperative, euthymic mood, insight and judgment intact Hospital Course: 63 year old man with history of pulmonary fibrosis with chronic respiratory failure on 3 and half liters nasal cannula at home, hypertension, previous history of EtOH abuse presented for evaluation of chills, shakes, generalized weakness. In the emergency room, patient was afebrile, 124/88, heart rate 91, 100% on 6 L of nasal cannula. CBC demonstrated leukocytosis to 22.2. Basic metabolic panel showed sodium of 133, potassium 5.2, chloride of 84, CO2 of 39. Liver function test showed AST of 60, ALT of 170, alkaline phosphatase of 170, total bilirubin of 0.7. Troponin was 0.015, BNP was 527. ABG demonstrated pH of 7.47, pCO2 of 57, pO2 of 212. EKG showed sinus rhythm with peaked P waves. Chest x-ray appears to have chronic interstitial fibrotic changes bilaterally, worse on the right, and appears similar to prior. Case was discussed with the emergency room provider and decision was made to make the patient observation. Assessment/plan: Leukocytosis Chills, Shakes Aspiration Event -admit to inpatient -zosyn -pulm consult -aspiration precautions Severe protein calorie malnutrition Cachexia -nutrition consult -TFs -ST consult Pulmonary Fibrosis Chronic Hypoxemic Respiratory Failure Restrictive Lung Disease Levido Reticularis -pulmonary consult -oxygen PRN -RUBY, anti-Scl-70, anti-RNA polymerase III - pending History of ETOH abuse HTN -Home medication reconciliation pending home med history Pt is Full Code DVT PPx enoxaparin 30mg SQ Objective - Vital Signs Vital signs: Vital Signs Temp 97.7 F 01/02/24 08:00 Pulse 104 H 01/02/24 09:29 Resp 16 01/02/24 08:00 BP 133/90 01/02/24 08:00 Pulse Ox 96 01/02/24 08:00 FiO2 Intake & Output 01/01/24 01/02/24 01/02/24 18:59 06:59 18:59 Output Total 800 Balance -800 Weight 48.988 kg Output: Urine 800 Other: Voiding Method Urinal Urinal - Labs CBC & Chem 7: 01/02/24 08:24 01/02/24 08:24 Labs: Abnormal Lab Results - Last 24 Hours (Table) 01/01/24 01/01/24 01/01/24 Range/Units 14:16 14:47 14:47 WBC 22.2 H (3.8-10.6) k/uL RBC (4.30-5.90) m/uL MCV 102.6 H (80.0-100.0) fL Neutrophils # 20.5 H (1.3-7.7) k/uL Lymphocytes # 0.4 L (1.0-4.8) k/uL Monocytes # 1.2 H (0-1.0) k/uL PT 9.6 L (10.0-12.5) sec ABG pH 7.47 H (7.35-7.45) ABG pCO2 57 H (35-45) mmHg ABG pO2 212 H (83-108) mmHg ABG HCO3 41 H* (21-25) mmol/L ABG Total CO2 43 H (19-24) mmol/L ABG O2 Saturation 99.3 H (94-97) % Sodium (137-145) mmol/L Potassium (3.5-5.1) mmol/L Chloride (98-107) mmol/L Carbon Dioxide (22-30) mmol/L BUN (9-20) mg/dL Creatinine (0.66-1.25) mg/dL Glucose (74-99) mg/dL POC Glucose (mg/dL) (70-110) mg/dL Plasma Lactic Acid Cooper (0.7-2.0) mmol/L Calcium (8.4-10.2) mg/dL AST (17-59) U/L ALT (4-49) U/L Alkaline Phosphatase (38-126) U/L 01/01/24 01/01/24 01/01/24 Range/Units 14:47 14:47 18:30 WBC (3.8-10.6) k/uL RBC (4.30-5.90) m/uL MCV (80.0-100.0) fL Neutrophils # (1.3-7.7) k/uL Lymphocytes # (1.0-4.8) k/uL Monocytes # (0-1.0) k/uL PT (10.0-12.5) sec ABG pH (7.35-7.45) ABG pCO2 (35-45) mmHg ABG pO2 (83-108) mmHg ABG HCO3 (21-25) mmol/L ABG Total CO2 (19-24) mmol/L ABG O2 Saturation (94-97) % Sodium 133 L (137-145) mmol/L Potassium 5.2 H (3.5-5.1) mmol/L Chloride 84 L (98-107) mmol/L Carbon Dioxide 39 H (22-30) mmol/L BUN 30 H (9-20) mg/dL Creatinine (0.66-1.25) mg/dL Glucose 157 H (74-99) mg/dL POC Glucose (mg/dL) (70-110) mg/dL Plasma Lactic Acid Cooper 2.4 H* 2.7 H* (0.7-2.0) mmol/L Calcium 10.8 H (8.4-10.2) mg/dL AST 60 H (17-59) U/L ALT 105 H (4-49) U/L Alkaline Phosphatase 170 H (38-126) U/L 01/02/24 01/02/24 01/02/24 Range/Units 00:25 05:50 08:24 WBC 25.2 H (3.8-10.6) k/uL RBC 3.94 L (4.30-5.90) m/uL MCV 103.9 H (80.0-100.0) fL Neutrophils # 24.1 H (1.3-7.7) k/uL Lymphocytes # 0.3 L (1.0-4.8) k/uL Monocytes # (0-1.0) k/uL PT (10.0-12.5) sec ABG pH (7.35-7.45) ABG pCO2 (35-45) mmHg ABG pO2 (83-108) mmHg ABG HCO3 (21-25) mmol/L ABG Total CO2 (19-24) mmol/L ABG O2 Saturation (94-97) % Sodium (137-145) mmol/L Potassium (3.5-5.1) mmol/L Chloride (98-107) mmol/L Carbon Dioxide (22-30) mmol/L BUN (9-20) mg/dL Creatinine (0.66-1.25) mg/dL Glucose (74-99) mg/dL POC Glucose (mg/dL) 144 H 127 H (70-110) mg/dL Plasma Lactic Acid Cooper (0.7-2.0) mmol/L Calcium (8.4-10.2) mg/dL AST (17-59) U/L ALT (4-49) U/L Alkaline Phosphatase (38-126) U/L 01/02/24 Range/Units 08:24 WBC (3.8-10.6) k/uL RBC (4.30-5.90) m/uL MCV (80.0-100.0) fL Neutrophils # (1.3-7.7) k/uL Lymphocytes # (1.0-4.8) k/uL Monocytes # (0-1.0) k/uL PT (10.0-12.5) sec ABG pH (7.35-7.45) ABG pCO2 (35-45) mmHg ABG pO2 (83-108) mmHg ABG HCO3 (21-25) mmol/L ABG Total CO2 (19-24) mmol/L ABG O2 Saturation (94-97) % Sodium 132 L (137-145) mmol/L Potassium 5.3 H (3.5-5.1) mmol/L Chloride 92 L (98-107) mmol/L Carbon Dioxide 34 H (22-30) mmol/L BUN 22 H (9-20) mg/dL Creatinine 0.63 L (0.66-1.25) mg/dL Glucose 112 H (74-99) mg/dL POC Glucose (mg/dL) (70-110) mg/dL Plasma Lactic Acid Cooper (0.7-2.0) mmol/L Calcium (8.4-10.2) mg/dL AST (17-59) U/L ALT (4-49) U/L Alkaline Phosphatase (38-126) U/L
[2024-01-02 11:50] LABS: Glucose,Whole Blood 177 mg/dL (70-110)
--- NOTE | 2024-01-02 16:26 | P.CNPUL ---
History of Present Illness Consult date: 01/02/24 Reason for consult: dyspnea, hypoxemia History of present illness: Patient is a 63-year-old white male with past medical history significant for advanced pulmonary fibrosis and restrictive lung disease treated with Ofev, previous ventilator dependent respiratory failure, alcoholism. Patient did have a recent prolonged and complicated hospitalization 12/16/2023 through 12/28/2023. He was treated for aspiration pneumonia. He did undergo a swallow evaluation showed aspiration with various consistencies. He did have a a PEG tube placed 12/26/2023. Patient returned to the emergency room yesterday afternoon complaining of severe weakness. He has no other specific complaints. He denies any change in his chronic shortness of breath. He does have a chronic cough. Currently, he is producing some clear sputum. No fevers. No chest pa in. A follow-up chest x-ray showed chronic lung changes with low lung volumes and mild bibasilar atelectasis. Improvement in the patient's previous consolidative lung infiltrates. There is abnormal gas pattern suggestive of possible obstruction or severe ileus. This was followed up with an abdominal and pelvis CT which showed a likely nonobstructive bowel gas pattern. Patient is currently lying in bed on 4 L/min nasal cannula, in no acute distress. He actually has no specific complaints other than generalized and severe weakness. He has had to use a wheelchair to get around. His daughter and son-in-law have moved in to help him. He has been using his PEG tube for bolus feeding. Denies nausea, vomiting, abdominal pain. He has had loose bowel movements. 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 An ABG was done in the emergency room, which showed a component of compensated chronic hypercapnic respiratory failure. CBC on arrival: WBC count 22, hemoglobin 16.3, hematocrit 50.3, platelets 395. CMP on arrival: Sodium 133, potassium 5.2, chloride 84, serum bicarb 39, BUN 30, creatinine 0.69, glucose 157. Lactic acid level 2.7 down to 1.7. LFTs mildly elevated. Troponin 0.015. NT proBNP 527. In the emergency room, the patient was continued on Zosyn. Currently afebrile. Hemodynamically stable. The patient was seen today and the patient is currently on 40s of oxygen by nasal cannula. He continues to have some cough and congestion.The patient blood work shows leukocytosis with a white cell count of 25 which is slightly higher compared to yesterday with a hemoglobin of 13.5 which is lower compared to yesterday. Platelet counts are stable at 313. The patient is having normal renal function with a BUN of 22 and a creatinine of 0.6 and sodium levels at 132. Procalcitonin level came back at 0.08. The scleroderma antibodies are negative. RUBY was also negative. I reviewed the CAT scan of the abdomen and pelvis and the CAT scan shows chronic scarring and bronchiectatic change in lung bases. Prominent pulmonary arteries consistent with pulm hypertension. Rest of the intra-abdominal structures were essentially within normal limits and the PEG tube is in a good location. There are some nonspecific bowel gas pattern without any evidence of any obstruction or small bowel dilatation. As for the chest x-ray that was done at time of admission, it shows a smaller lung volumes, some atelectatic changes and chronic scarring lung base bilaterally consistent with with his underlying pulmonary fibrosis. Aspiration was suspected and the patient remains on IV Zosyn. Patient is also on DuoNeb nebulized treatments [id number]. The patient is on IV Solu-Medrol 60 mg every 6 hours. Rest of the home medication have been resumed. The patient on Lovenox for DVT prophylaxis. Review of Systems CONSTITUTIONAL: Denies any recent significant weight loss or weight gain. Admits generalized weakness and malaise. Denies fevers. EYES: Denies change in vision. EARS, NOSE, MOUTH, THROAT: Denies headaches, denies sore throat. CARDIOVASCULAR: Denies chest pain, palpitations or syncopal episodes. RESPIRATORY: See HPI. Chronic dyspnea. GASTROINTESTINAL: Denies change in appetite, abdominal pain, nausea and vomiting, or diarrhea, chronic dysphagia the patient has a PEG tube for enteral feeding and nutritional support. GENITOURINARY: Denies hematuria, denies infections. MUSKULOSKELETAL: Denies pain, denies swelling. INTEGUMENTARY: Denies rash, denies eczema. NEUROLOGICAL: Denies recent memory loss, no recent seizure activity. PSYCHIATRIC: Denies anxiety, denies depression. HEMATOLOGIC/LYMPHATIC: Denies anemia, denies enlarged lymph node Past Medical History Past Medical History: Musculoskeletal Disorder Additional Past Medical History / Comment(s): ETOH abuse, DTs, chronic low back pain/herniated discs/scoliosis/spinal stenosis, right shoulder, pulmonary fibrosis, Home O2 3L History of Any Multi-Drug Resistant Organisms: None Reported Past Surgical History: Orthopedic Surgery Additional Past Surgical History / Comment(s): R ankle fx with surgical repair- pin in and out, back injections at [facility]. Left knee Past Anesthesia/Blood Transfusion Reactions: No Reported Reaction Additional Past Anesthesia/Blood Transfusion Reaction / Comment(s): Pt has never received blood. Past Psychological History: Anxiety, Depression Smoking Status: Never smoker Past Alcohol Use History: None Reported Past Drug Use History: None Reported - Past Family History Father Family Medical History: Dementia Additional Family Medical History / Comment(s): Father is . Mother Family Medical History: Cancer Additional Family Medical History / Comment(s): Mother at age 64yrs of pancreatic cancer. Medications and Allergies Home Medications Medication Instructions Recorded Confirmed Type Citalopram Hydrobromide [CeleXA] 40 mg PEG/G-TUBE DAILY 03/25/21 01/01/24 History busPIRone HCL [Buspar] 7.5 mg PEG/G-TUBE BID 10/14/23 01/01/24 History Medihoney 80% Gel 1 applic TOPICAL DAILY 12/17/23 01/01/24 History ALPRAZolam [Xanax] 0.5 mg PEG/G-TUBE TID 01/01/24 01/01/24 History Acetaminophen Oral Susp [Tylenol] 640 mg PEG/G-TUBE Q4-6H PRN 01/01/24 01/01/24 History Folic Acid 1 mg PEG/G-TUBE DAILY 01/01/24 01/01/24 History Losartan [Cozaar] 50 mg PEG/G-TUBE DAILY 01/01/24 01/01/24 History Melatonin 1.5 mg PEG/G-TUBE HS 01/01/24 01/01/24 History Metoprolol Tartrate [Lopressor] 12.5 mg PEG/G-TUBE BID 01/01/24 01/01/24 History Morphine Sulfate 15 mg PEG/G-TUBE Q6H 01/01/24 01/01/24 History Nintedanib Esylate [Ofev] 150 mg PO DIRECTED 01/01/24 01/01/24 History guaiFENesin [guaiFENesin Oral 400 mg PEG/G-TUBE BID 01/01/24 01/01/24 History Solution] predniSONE See Taper PEG/G-TUBE DIRECTED 01/01/24 01/01/24 History Allergies Allergy/AdvReac Type Severity Reaction Status Date / Time No Known Allergies Allergy Verified 01/01/24 17:30 Physical Exam Vitals: Vital Signs Temp Pulse Pulse Resp BP BP Pulse Ox 01/02/24 16:00 97.5 F L 116 H 16 77/57 100 01/02/24 12:15 100 01/02/24 12:02 104 H 01/02/24 12:00 95 16 96/70 99 01/02/24 09:40 108 H 01/02/24 09:29 104 H 01/02/24 08:00 97.7 F 107 H 16 133/90 96 01/02/24 03:17 98 F 98 18 120/82 98 01/01/24 23:32 97.6 F 78 18 125/79 97 01/01/24 21:00 92 01/01/24 20:53 89 01/01/24 20:00 98.2 F 89 18 138/82 96 01/01/24 16:58 97.9 F 01/01/24 16:35 90 23 140/95 100 Intake and Output 01/02/24 01/02/24 01/02/24 06:59 14:59 22:59 Output Total 800 Balance -800 Output: Urine 800 Other: Voiding Method Urinal Urinal Weight 48.988 kg GENERAL EXAM: Alert, 63-year-old white male, pleasant, cachectic, comfortable in no apparent distress. Requires assistance to sit up in bed. HEAD: Normocephalic and atraumatic EYES: Normal reaction of pupils, equal size. NOSE: Clear with pink turbinates. THROAT: No erythema or exudates. NECK: No masses, no JVD. CHEST: No chest wall deformity. LUNGS: Equal air entry with inspiratory bibasilar Velcro crackles. On 4 L/min nasal cannula. No conversational dyspnea or accessory muscle use while at rest. CVS: S1 and S2 normal with no audible murmur, regular rhythm. No extra heart sounds ABDOMEN: No hepatosplenomegaly, active bowel sounds, no guarding or rigidity. PEG tube site clean, dry, without any drainage. SPINE: No scoliosis or deformity SKIN: No rashes CENTRAL NERVOUS SYSTEM: No focal deficits, tone is normal in all 4 extremities. EXTREMITIES: There is no peripheral edema, clubbing, or cyanosis. Peripheral pulses are intact. Results - Laboratory Findings CBC and BMP: 01/02/24 08:24 01/02/24 08:24 ABG ABG pH 7.47 (7.35-7.45) H 01/01/24 14:16 ABG pCO2 57 mmHg (35-45) H 01/01/24 14:16 ABG pO2 212 mmHg (83-108) H 01/01/24 14:16 ABG O2 Saturation 99.3 % (94-97) H 01/01/24 14:16 PT/INR, D-dimer PT 9.6 sec (10.0-12.5) L 01/01/24 14:47 INR 0.8 (<1.2) 01/01/24 14:47 Abnormal lab findings: Abnormal Labs 01/01/24 01/01/24 01/01/24 14:16 14:47 14:47 WBC 22.2 H RBC MCV 102.6 H Neutrophils # 20.5 H Lymphocytes # 0.4 L Monocytes # 1.2 H PT 9.6 L ABG pH 7.47 H ABG pCO2 57 H ABG pO2 212 H ABG HCO3 41 H* ABG Total CO2 43 H ABG O2 Saturation 99.3 H Sodium Potassium Chloride Carbon Dioxide BUN Creatinine Glucose POC Glucose (mg/dL) Plasma Lactic Acid Cooper Calcium AST ALT Alkaline Phosphatase 01/01/24 01/01/24 01/01/24 14:47 14:47 18:30 WBC RBC MCV Neutrophils # Lymphocytes # Monocytes # PT ABG pH ABG pCO2 ABG pO2 ABG HCO3 ABG Total CO2 ABG O2 Saturation Sodium 133 L Potassium 5.2 H Chloride 84 L Carbon Dioxide 39 H BUN 30 H Creatinine Glucose 157 H POC Glucose (mg/dL) Plasma Lactic Acid Cooper 2.4 H* 2.7 H* Calcium 10.8 H AST 60 H ALT 105 H Alkaline Phosphatase 170 H 01/02/24 01/02/24 01/02/24 00:25 05:50 08:24 WBC 25.2 H RBC 3.94 L MCV 103.9 H Neutrophils # 24.1 H Lymphocytes # 0.3 L Monocytes # PT ABG pH ABG pCO2 ABG pO2 ABG HCO3 ABG Total CO2 ABG O2 Saturation Sodium Potassium Chloride Carbon Dioxide BUN Creatinine Glucose POC Glucose (mg/dL) 144 H 127 H Plasma Lactic Acid Cooper Calcium AST ALT Alkaline Phosphatase 01/02/24 01/02/24 08:24 11:48 WBC RBC MCV Neutrophils # Lymphocytes # Monocytes # PT ABG pH ABG pCO2 ABG pO2 ABG HCO3 ABG Total CO2 ABG O2 Saturation Sodium 132 L Potassium 5.3 H Chloride 92 L Carbon Dioxide 34 H BUN 22 H Creatinine 0.63 L Glucose 112 H POC Glucose (mg/dL) 177 H Plasma Lactic Acid Cooper Calcium AST ALT Alkaline Phosphatase - Diagnostic Findings Chest x-ray: image reviewed Assessment and Plan Plan: Acute on chronic hypoxemic respiratory failure, follow-up chest x-ray shows improvement in the patient's previous superimposed lung consolidations. There are chronic lung changes with low lung volumes and mild bibasilar atelectasis versus scarring. There is some interval mild worsening in the patient's oxygenation the patient is currently on 4 L of O2 nasal cannula. Rule out aspiration. Rule out some limited chemical pneumonitis involving the lung bases. Otherwise, there is no significant signs of any pulmonary infection or pneumonia. Procalcitonin level is not elevated. The patient has a PEG tube for enteral feeding and nutritional support related to chronic dysphagia. Recent hospital admission for suspected aspiration pneumonia, patient continues on Zosyn. Micro negative from recent admission. Acute leukocytosis, currently under investigation. White cell count remains elevated. Interstitial pulmonary fibrosis, previously maintained on Ofev, unable to take the medication as the medication is not crushable through the PEG tube. Chronic hypoxemic respiratory failure, secondary to above, normally maintained on 3 L/min nasal cannula Chronic hypercapnic respiratory failure Severe generalized weakness and deconditioning Severe protein calorie malnutrition Dysphagia, status post PEG tube insertion on 12/26/2023, has been giving himself bolus feeds at home. History of alcoholism Osteoarthritis Chronic back pain Plan: Aspiration precautions Continue supplemental oxygen Continue empiric antibiotic coverage with IV Zosyn Continue high-dose Solu-Medrol. He has not been able to take his Ofev, states that it is contraindicated to crush and put down his PEG tube. Consult dietary for tube feeding May start enteral feeding for nutritional support Resume aspiration precautions and nothing by mouth. Overall prognosis is guarded related to above-mentioned comorbidities.
[2024-01-02] MEDS: SODIUM CHLORIDE 0.9% 1,000 ML IV ONE (16:38)
[2024-01-02 18:09] LABS: Glucose,Whole Blood 175 mg/dL (70-110)
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
[2024-01-03 00:03] LABS: Glucose,Whole Blood 191 mg/dL (70-110)
[2024-01-03 06:09] LABS: Glucose,Whole Blood 231 mg/dL (70-110)
[2024-01-03 11:06] LABS: Basophils % (A) 0 %; Eosinophils % (A) 0 %; HCT 28.9 % (39.0-53.0); Hypochromasia Slight; Lymphocytes # (A) 0.4 k/uL (1.0-4.8); Lymphocytes % (A) 2 %; MCHC 30.9 g/dL (31.0-37.0); MCV 106.9 fL (80.0-100.0); Macrocytosis Moderate; Mean Platelet Volume 9.1; Monocytes % (A) 4 %; Neutrophils # (A) 23.8 k/uL (1.3-7.7); Neutrophils % (A) 93 %; Platelet Count 314 k/uL (150-450); RBC 2.71 m/uL (4.30-5.90); RDW 14.9 % (11.5-15.5); WBC 25.5 k/uL (3.8-10.6)
[2024-01-03 11:19] LABS: ALT 51 U/L (4-49); AST 29 U/L (17-59); African American GFR (CKD) >90 (>60 ml/min/1.73 sqM); Albumin 3.1 g/dL (3.5-5.0); Alkaline Phosphatase 89 U/L (38-126); Anion Gap 6 mmol/L; Blood Urea Nitrogen 31 mg/dL (9-20); Calcium 8.9 mg/dL (8.4-10.2); Carbon Dioxide 30 mmol/L (22-30); Chloride 96 mmol/L (98-107); Glucose 140 mg/dL (74-99); HGB 8.9 gm/dL (13.0-17.5); Non-African American GFR(CKD) >90 (>60 ml/min/1.73 sqM); Potassium 4.9 mmol/L (3.5-5.1); Sodium 132 mmol/L (137-145); Total Bilirubin 0.4 mg/dL (0.2-1.3); Total Protein 5.5 g/dL (6.3-8.2)
[2024-01-03 11:57] LABS: Glucose,Whole Blood 158 mg/dL (70-110)
--- NOTE | 2024-01-03 13:43 | P.PN ---
Subjective Progress Note Date: 01/03/24 Hospital Course: 63 year old man with history of pulmonary fibrosis with chronic respiratory fa ilure on 3 and half liters nasal cannula at home, hypertension, previous history of EtOH abuse presented for evaluation of chills, shakes, generalized weakness. In the emergency room, patient was afebrile, 124/88, heart rate 91, 100% on 6 L of nasal cannula. CBC demonstrated leukocytosis to 22.2. Basic metabolic panel showed sodium of 133, potassium 5.2, chloride of 84, CO2 of 39. Liver function test showed AST of 60, ALT of 170, alkaline phosphatase of 170, total bilirubin of 0.7. Troponin was 0.015, BNP was 527. ABG demonstrated pH of 7.47, pCO2 of 57, pO2 of 212. EKG showed sinus rhythm with peaked P waves. Chest x-ray appears to have chronic interstitial fibrotic changes bilaterally, worse on the right, and appears similar to prior. Procalcitonin negative. Leukocytosis is persistent. Microbiology showed blood cultures positive for GPC in clusters, staph epi. On IV Zosyn. Subjective: Patient seen and examined at bedside. No acute events overnight. Claims that breathing is better. Pertinent positives and negatives as discussed above, a complete review of systems was performed and all other systems are negative. Vitals Signs Reviewed. General: Nontoxic, no distress, appears at stated age, thin appearing Derm: Warm, dry, PEG tube site clean, dry, intact Head: Atraumatic, normocephalic, symmetric Eyes: EOMI, no lid lag, anicteric sclera Mouth: No lip lesion, mucus membranes moist Cardiovascular: S1S2 reg, no murmur Lungs: Fine rales, no accessory muscle use, supplemental oxygen Abdominal: Soft, nontender to palpation, no guarding, no appreciable organome rimma Ext: No gross muscle atrophy, no edema, no contractures Neuro: CN II-XI grossly intact, no focal neuro deficits Psych: Alert, oriented, appropriate affect Data Reviewed Today: Pertinent Labs: WBC 25.5, hemoglobin 8.9, sodium 132, potassium 4.9, creatinine 0.76, blood sugars range between 1 40-2 31 Imaging: No new imaging Assessment and Plan: Active: Staph epi bacteremia, true infection versus contaminant Leukocytosis Recurrent aspiration, PEG dependent Severe protein calorie malnutrition Mild hyponatremia Chronic back pain Pulmonology following, patient on DuoNebs every 2 hours as needed, and scheduled 4 times daily, Solu-Medrol 60 IV every 6 hours, monitor blood sugars blood cultures positive for staph epi Continue IV Zosyn 3.375 g every 8 hours Repeat blood cultures pending, ID consulted, pending recommendations Continue tube feeds, dietitian following On morphine 15 mg every 6 however, monitor for sedation Repeat CBC and BMP tomorrow Resolved: Hypokalemia Chronic: Chronic respiratory failure Interstitial pulmonary fibrosis Anxiety Depression Hypertension DVT ppx: Lovenox Code status: Full code Anticipated discharge place: Pending clinical course Anticipated discharge time: Pending clinical course Objective - Vital Signs Vital signs: Vital Signs Temp 97.4 F L 01/03/24 11:15 Pulse 105 H 01/03/24 11:15 Resp 20 01/03/24 11:15 BP 107/75 01/03/24 11:15 Pulse Ox 97 01/03/24 11:15 FiO2 Intake & Output 01/02/24 01/03/24 01/03/24 18:59 06:59 18:59 Intake Total 90 Output Total 550 Balance 90 -550 Weight 48.988 kg Intake: Tube Feeding 90 Output: Urine 550 Other: Voiding Method Urinal Urinal Urinal - Labs CBC & Chem 7: 01/03/24 09:56 01/03/24 09:56 Labs: Abnormal Lab Results - Last 24 Hours (Table) 01/02/24 01/03/24 01/03/24 Range/Units 18:07 00:02 06:07 WBC (3.8-10.6) k/uL RBC (4.30-5.90) m/uL Hgb (13.0-17.5) gm/dL Hct (39.0-53.0) % MCV (80.0-100.0) fL MCHC (31.0-37.0) g/dL Neutrophils # (1.3-7.7) k/uL Lymphocytes # (1.0-4.8) k/uL Sodium (137-145) mmol/L Chloride (98-107) mmol/L BUN (9-20) mg/dL Glucose (74-99) mg/dL POC Glucose (mg/dL) 175 H 191 H 231 H (70-110) mg/dL ALT (4-49) U/L Total Protein (6.3-8.2) g/dL Albumin (3.5-5.0) g/dL 01/03/24 01/03/24 01/03/24 Range/Units 09:56 09:56 11:55 WBC 25.5 H (3.8-10.6) k/uL RBC 2.71 L (4.30-5.90) m/uL Hgb 8.9 L D (13.0-17.5) gm/dL Hct 28.9 L (39.0-53.0) % MCV 106.9 H (80.0-100.0) fL MCHC 30.9 L (31.0-37.0) g/dL Neutrophils # 23.8 H (1.3-7.7) k/uL Lymphocytes # 0.4 L (1.0-4.8) k/uL Sodium 132 L (137-145) mmol/L Chloride 96 L (98-107) mmol/L BUN 31 H (9-20) mg/dL Glucose 140 H (74-99) mg/dL POC Glucose (mg/dL) 158 H (70-110) mg/dL ALT 51 H (4-49) U/L Total Protein 5.5 L (6.3-8.2) g/dL Albumin 3.1 L (3.5-5.0) g/dL Microbiology - Last 24 Hours (Table) 01/01/24 14:47 Blood Culture Gram Stain - Preliminary Blood
--- NOTE | 2024-01-03 14:05 | P.PN ---
Subjective Progress Note Date: 01/03/24 Patient is a 63-year-old white male with past medical history significant for advanced pulmonary fibrosis and restrictive lung disease treated with Ofev, previous ventilator dependent respiratory failure, alcoholism. Patient did have a recent prolonged and complicated hospitalization 12/16/2023 through 12/28/2023. He was treated for aspiration pneumonia. He did undergo a swallow evaluation showed aspiration with various consistencies. He did have a a PEG tube placed 12/26/2023. Patient returned to the emergency room yesterday afternoon complaining of severe weakness. He has no other specific complaints. He denies any change in his chronic shortness of breath. He does have a chronic cough. Currently, he is producing some clear sputum. No fevers. No chest pain. A follow-up chest x-ray showed chronic lung changes with low lung volumes and mild bibasilar atelectasis. Improvement in the patient's previous consolidative lung infiltrates. There is abnormal gas pattern suggestive of po ssible obstruction or severe ileus. This was followed up with an abdominal and pelvis CT which showed a likely nonobstructive bowel gas pattern. Patient is currently lying in bed on 4 L/min nasal cannula, in no acute distress. He actually has no specific complaints other than generalized and severe weakness. He has had to use a wheelchair to get around. His daughter and son-in-law have moved in to help him. He has been using his PEG tube for bolus feeding. Denies nausea, vomiting, abdominal pain. He has had loose bowel movements. 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 An ABG was done in the emergency room, which showed a component of compensated chronic hypercapnic respiratory failure. CBC on arrival: WBC count 22, hemoglobin 16.3, hematocrit 50.3, platelets 395. CMP on arrival: Sodium 133, potassium 5.2, chloride 84, serum bicarb 39, BUN 30, creatinine 0.69, glucose 157. Lactic acid level 2.7 down to 1.7. LFTs mildly elevated. Troponin 0.015. NT proBNP 527. In the emergency room, the patient was continued on Zosyn. Currently afebrile. Hemodynamically stable. The patient was seen today and the patient is currently on 40s of oxygen by nasal cannula. He continues to have some cough and congestion.The patient blood work shows leukocytosis with a white cell count of 25 which is slightly higher compared to yesterday with a hemoglobin of 13.5 which is lower compared to yesterday. Platelet counts are stable at 313. The patient is having normal renal function with a BUN of 22 and a creatinine of 0.6 and sodium levels at 132. Procalcitonin level came back at 0.08. The scleroderma antibodies are negative. RUBY was also negative. I reviewed the CAT scan of the abdomen and p carlos and the CAT scan shows chronic scarring and bronchiectatic change in lung bases. Prominent pulmonary arteries consistent with pulm hypertension. Rest of the intra-abdominal structures were essentially within normal limits and the PEG tube is in a good location. There are some nonspecific bowel gas pattern without any evidence of any obstruction or small bowel dilatation. As for the chest x-ray that was done at time of admission, it shows a smaller lung volumes, some atelectatic changes and chronic scarring lung base bilaterally consistent with with his underlying pulmonary fibrosis. Aspiration was suspected and the patient remains on IV Zosyn. Patient is also on DuoNeb nebulized treatments [id number]. The patient is on IV Solu-Medrol 60 mg every 6 hours. Rest of the home medication have been resumed. The patient on Lovenox for DVT prophylaxis. On 01/03/2024, the patient is being seen for a follow-up. The patient is feeling better on today's evaluation. The patient is down to 2 L of oxygen by nasal cannula which is his baseline oxygen requirements. Denies having any chest pain. No other significant events overnight. The white cell count remains elevated at 25.5 with a hemoglobin 8.6 and a platelet count of 314. BUN is at 31 with a creatinine of 0.7 and sodium levels at 132. Procalcitonin level was low at 0.08. The patient remains on DuoNeb updrafts. The patient remains on IV Solu-Medrol 60 mg every 6 hours. The patient remains on IV Zosyn which is essentially empiric antibiotic coverage. Blood cultures are negative thus far. The patient was also started on enteral feeding for nutritional support and the patient is currently on Jevity 1.2 at the rate of 42 cc an hour. Overnight, the patient is in a episode of hypotension with a systolic blood pressure in the low 70s. The patient was given a liter bolus and currently is normotensive. Denies having any chest pain. No altered mentation. No chest pain. No other significant events otherwise. Objective - Vital Signs Vital signs: Vital Signs Temp 98.0 F 01/03/24 07:40 Pulse 100 01/03/24 07:40 Resp 20 01/03/24 07:40 BP 102/69 01/03/24 07:40 Pulse Ox 95 01/03/24 07:40 FiO2 Intake & Output 01/02/24 01/03/24 01/03/24 18:59 06:59 18:59 Intake Total 90 Output Total 550 Balance 90 -550 Weight 48.988 kg Intake: Tube Feeding 90 Output: Urine 550 Other: Voiding Method Urinal Urinal Urinal - Exam GENERAL EXAM: Alert, 63-year-old white male, pleasant, cachectic, comfortable in no apparent distress. Requires assistance to sit up in bed. The patient is currently on 3 L of oxygen nasal cannula HEAD: Normocephalic and atraumatic EYES: Normal reaction of pupils, equal size. NOSE: Clear with pink turbinates. THROAT: No erythema or exudates. NECK: No masses, no JVD. CHEST: No chest wall deformity. LUNGS: Equal air entry with inspiratory bibasilar Velcro crackles. . No conversational dyspnea or accessory muscle use while at rest. CVS: S1 and S2 normal with no audible murmur, regular rhythm. No extra heart sounds ABDOMEN: No hepatosplenomegaly, active bowel sounds, no guarding or rigidity. PEG tube site clean, dry, without any drainage. SPINE: No scoliosis or deformity SKIN: No rashes CENTRAL NERVOUS SYSTEM: No focal deficits, tone is normal in all 4 extremities. EXTREMITIES: There is no peripheral edema, clubbing, or cyanosis. Peripheral pulses are intact. - Labs CBC & Chem 7: 01/03/24 09:56 01/03/24 09:56 Labs: Abnormal Lab Results - Last 24 Hours (Table) 01/02/24 01/02/24 01/03/24 Range/Units 11:48 18:07 00:02 POC Glucose (mg/dL) 177 H 175 H 191 H (70-110) mg/dL 01/03/24 Range/Units 06:07 POC Glucose (mg/dL) 231 H (70-110) mg/dL Microbiology - Last 24 Hours (Table) 01/01/24 14:47 Blood Culture Gram Stain - Preliminary Blood Assessment and Plan Plan: Acute on chronic hypoxemic respiratory failure, follow-up chest x-ray shows improvement in the patient's previous superimposed lung consolidations. There are chronic lung changes with low lung volumes and mild bibasilar atelectasis versus scarring. The patient's oxygenation is stable and the patient is currently on 3 L O2 nasal cannula. Suspect chemical pneumonitis. Procalcitonin level is nonelevated. Recent hospital admission for suspected aspiration pneumonia, patient continues on Zosyn. Micro negative from recent admission. Acute leukocytosis, currently under investigation. White cell count remains elevated. Could be related to systemic steroids. Interstitial pulmonary fibrosis, previously maintained on Ofev, unable to take the medication as the medication is not crushable through the PEG tube. Chronic hypoxemic respiratory failure, secondary to above, normally maintained on 3 L/min nasal cannula Chronic hypercapnic respiratory failure Severe generalized weakness and deconditioning Severe protein calorie malnutrition Dysphagia, status post PEG tube insertion on 12/26/2023, has been giving himself bolus feeds at home. History of alcoholism Osteoarthritis Chronic back pain Plan: Aspiration precautions Continue supplemental oxygen Continue empiric antibiotic coverage with IV Zosyn Discontinue IV Solu-Medrol start the patient on a prednisone taper Will consult again with speech pathology and see if the patient is able to take his Ofev along with some thickened material. He has not been able to take his Ofev, states that it is contraindicated to crush and put down his PEG tube. The patient was started on Jevity which is running at 47 cc an hour. Overall prognosis is guarded related to above-mentioned comorbidities.
[2024-01-03 18:04] LABS: Glucose,Whole Blood 158 mg/dL (70-110)
--- NOTE | 2024-01-03 22:13 | P.CONS ---
History of Present Illness - Reason for Consult Consult date: 01/03/24 Bacteremia Requesting physician: Grey Braun - Chief Complaint Increased weakness x few days - History of Present Illness Patient is a 63-year-old male with a past medical history significant for pulmonary fibrosis EtOH abuse DTs he did have a recent hospital stay admitted for aspiration pneumonia and did require placement of PEG tube patient was subsequently discharged home presenting back to the hospital concerning for increased weakness also increasing shortness of breath and low O2 sats patient denies high-grade fever and chills no headache or URI symptoms has been complaining of shortness of breath and did have a Cough with some clear sputum no hemoptysis no nausea no vomiting no abdominal pain and no diarrhea mention that he did have a low O2 sats at home patient was brought in to hospital about 3 days ago patient has been afebrile and no fever have recorded subsequently has been mildly tachycardic but not hypotensive currently on 3 L nasal cannula oxygen patient did have a white count of 22.2 which is up to 25.5 creatinine was normal liver isms are normal procalcitonin 0.08 patient did have blood cultures drawn which came back positive with gram-positive cocci prompting this consultation patient did have a chest x-ray chronic lung changes with bibasilar subsegmental atelectasis abnormal gas pattern concerning for possible ileus patient did have a CT abdominal pelvis nonspecific but felt to be nonobstructive bowel gas pattern Review of Systems Positive point and negatives has been mentioned in the HPI, complete review of systems was performed and all other systems are negative Past Medical History Past Medical History: Musculoskeletal Disorder Additional Past Medical History / Comment(s): ETOH abuse, DTs, chronic low back pain/herniated discs/scoliosis/spinal stenosis, right shoulder, pulmonary fibrosis, Home O2 3L History of Any Multi-Drug Resistant Organisms: None Reported Past Surgical History: Orthopedic Surgery Additional Past Surgical History / Comment(s): R ankle fx with surgical repair- pin in and out, back injections at [facility]. Left knee Past Anesthesia/Blood Transfusion Reactions: No Reported Reaction Additional Past Anesthesia/Blood Transfusion Reaction / Comm: Pt has never received blood. Past Psychological History: Anxiety, Depression Smoking Status: Never smoker Past Alcohol Use History: None Reported Past Drug Use History: None Reported - Past Family History Father Family Medical History: Dementia Additional Family Medical History / Comment(s): Father is . Mother Family Medical History: Cancer Additional Family Medical History / Comment(s): Mother at age 64yrs of pancreatic cancer. Medications and Allergies Home Medications Medication Instructions Recorded Confirmed Type Citalopram Hydrobromide [CeleXA] 40 mg PEG/G-TUBE DAILY 03/25/21 01/01/24 History busPIRone HCL [Buspar] 7.5 mg PEG/G-TUBE BID 10/14/23 01/01/24 History Medihoney 80% Gel 1 applic TOPICAL DAILY 12/17/23 01/01/24 History Acetaminophen Oral Susp [Tylenol] 640 mg PEG/G-TUBE Q4-6H PRN 01/01/24 01/01/24 History Folic Acid 1 mg PEG/G-TUBE DAILY 01/01/24 01/01/24 History Losartan [Cozaar] 50 mg PEG/G-TUBE DAILY 01/01/24 01/01/24 History Melatonin 1.5 mg PEG/G-TUBE HS 01/01/24 01/01/24 History Metoprolol Tartrate [Lopressor] 12.5 mg PEG/G-TUBE BID 01/01/24 01/01/24 History Nintedanib Esylate [Ofev] 150 mg PO DIRECTED 01/01/24 01/01/24 History guaiFENesin [guaiFENesin Oral 400 mg PEG/G-TUBE BID 01/01/24 01/01/24 History Solution] MORPHINE ORAL KIAN CONC 20mg/mL 20 mg PEG/G-TUBE Q6H PRN 30 Days 01/11/24 Rx [Roxanol Oral Soln Conc 20MG/ML] #30 ml Morphine Sulfate Ir [MSIR] 15 mg PEG/G-TUBE Q6H 30 Days #120 01/11/24 Rx tab ALPRAZolam [Xanax] 0.5 mg PEG/G-TUBE TID #90 tab 01/12/24 Rx Artificial Tears-Hypromellose 2 drops LEFT EYE QID #240 ml 01/12/24 Rx [Artificial Tear Drops] Clotrimazole Alan [Mycelex 10 mg MUCOUS MEM QID 7 Days #28 01/12/24 Rx Alan] alan Lidocaine Viscous 2% [Xylocaine 30 ml PO QID #1000 ml 01/12/24 Rx Viscous] Mag Hydrox/Al Hydrox/Simeth 30 ml PO QID #1000 ml 01/12/24 Rx [Maalox] Non Formulary Drug 1 each PO QID #30 01/12/24 Rx Non Formulary Drug 1 each PO QID #30 day 01/12/24 Rx Nystatin 100,000 Unit/ml Susp 3,000,000 unit PO QID #840 ml 01/12/24 Rx [Mycostatin Oral Susp] Simethicone 40 mg/0.6 ml Drops 40 mg PEG/G-TUBE QID #30 ml 01/12/24 Rx [Mylicon Drops] docosanoL 1 applic TOPICAL TID 5 Days #2 gram 01/12/24 Rx predniSONE See Rx Instructions .ROUTE 01/12/24 Rx .COMPLEX #30 tab Allergies Allergy/AdvReac Type Severity Reaction Status Date / Time No Known Allergies Allergy Verified 01/01/24 17:30 Physical Exam Vitals: Vital Signs Temp Pulse Resp BP Pulse Ox 01/03/24 11:15 97.4 F L 105 H 20 107/75 97 01/03/24 07:40 98.0 F 100 20 102/69 95 01/03/24 07:20 18 01/03/24 04:00 98.0 F 92 18 105/70 96 01/03/24 01:18 96 18 01/03/24 00:00 97.8 F 96 18 94/66 97 01/02/24 20:00 97.9 F 106 H 18 98/60 100 01/02/24 18:18 100 16 92/63 100 01/02/24 16:00 97.5 F L 116 H 16 77/57 100 Intake and Output 01/02/24 01/03/24 01/03/24 22:59 06:59 14:59 Intake Total 90 Output Total 550 Balance 90 -550 Intake: Tube Feeding 90 Output: Urine 550 Other: Voiding Method Urinal Urinal Urinal GENERAL DESCRIPTION: Middle-aged male lying in bed, no distress. No tachypnea or accessory muscle of respiration use. HEENT: Shows Pallor , no scleral icterus. Oral mucous membrane is dry. No pharyngeal erythema or thrush NECK: Trachea central, no thyromegaly. LUNGS: Unlabored breathing. Decreased intensity breath sounds HEART: S1, S2, regular rate and rhythm. No loud murmur ABDOMEN: Soft, no tenderness , EXTREMITIES: No edema of feet. SKIN: No rash, no masses palpable. NEUROLOGICAL: The patient is awake, alert, oriented x3, mood and affect normal. Results CBC & Chem 7: 01/12/24 08:26 01/12/24 08:26 Labs: Abnormal Lab Results - Last 24 Hours (Table) 01/02/24 01/03/24 01/03/24 Range/Units 18:07 00:02 06:07 WBC (3.8-10.6) k/uL RBC (4.30-5.90) m/uL Hgb (13.0-17.5) gm/dL Hct (39.0-53.0) % MCV (80.0-100.0) fL MCHC (31.0-37.0) g/dL Neutrophils # (1.3-7.7) k/uL Lymphocytes # (1.0-4.8) k/uL Sodium (137-145) mmol/L Chloride (98-107) mmol/L BUN (9-20) mg/dL Glucose (74-99) mg/dL POC Glucose (mg/dL) 175 H 191 H 231 H (70-110) mg/dL ALT (4-49) U/L Total Protein (6.3-8.2) g/dL Albumin (3.5-5.0) g/dL 01/03/24 01/03/24 01/03/24 Range/Units 09:56 09:56 11:55 WBC 25.5 H (3.8-10.6) k/uL RBC 2.71 L (4.30-5.90) m/uL Hgb 8.9 L D (13.0-17.5) gm/dL Hct 28.9 L (39.0-53.0) % MCV 106.9 H (80.0-100.0) fL MCHC 30.9 L (31.0-37.0) g/dL Neutrophils # 23.8 H (1.3-7.7) k/uL Lymphocytes # 0.4 L (1.0-4.8) k/uL Sodium 132 L (137-145) mmol/L Chloride 96 L (98-107) mmol/L BUN 31 H (9-20) mg/dL Glucose 140 H (74-99) mg/dL POC Glucose (mg/dL) 158 H (70-110) mg/dL ALT 51 H (4-49) U/L Total Protein 5.5 L (6.3-8.2) g/dL Albumin 3.1 L (3.5-5.0) g/dL Microbiology - Last 24 Hours (Table) 01/01/24 14:47 Blood Culture Gram Stain - Preliminary Blood Assessment and Plan (1) Positive blood culture Status: Acute Priority: High Code(s): R78.81 - BACTEREMIA SNOMED Code(s): 313628944 (2) Leukocytosis Status: Acute Code(s): D72.829 - ELEVATED WHITE BLOOD CELL COUNT, UNSPECIFIED SNOMED Code(s): 447040763 Plan: 1patient with a positive blood culture with staph epi likely skin contamination as the patient no clinical disease to go along with it and there is no need for any vancomycin blood culture has been repeated document clearance 2-patient with admission to hospital worsening shortness of breath possibly related to his underlying pulmonary fibrosis/tracheobronchitis and chest x-ray not showing pneumonia and did have normal procalcitonin 3-leukocytosis more likely steroid related and will monitor closely We will follow on clinical condition and cultures to further adjust medication if needed Thank you for this consultation we will follow the patient along with you Dictation was produced using [employer] dictation software. please excuse any grammatical, word or spelling errors. Time with Patient: Greater than 30
[2024-01-04 00:09] LABS: Glucose,Whole Blood 143 mg/dL (70-110)
[2024-01-04 06:12] LABS: Glucose,Whole Blood 140 mg/dL (70-110)
[2024-01-04] MEDS: predniSONE 20 MG TAB PO SCH (08:22)
[2024-01-04 09:46] LABS: Basophils % (A) 0 %; Eosinophils % (A) 0 %; HCT 26.4 % (39.0-53.0); HGB 8.9 gm/dL (13.0-17.5); Lymphocytes # (A) 2.1 k/uL (1.0-4.8); Lymphocytes % (A) 8 %; MCH 35.5 pg (25.0-35.0); MCHC 33.9 g/dL (31.0-37.0); MCV 104.9 fL (80.0-100.0); Macrocytosis Moderate; Mean Platelet Volume 9.3; Monocytes # (A) 1.5 k/uL (0-1.0); Monocytes % (A) 6 %; Neutrophils % (A) 84 %; Platelet Count 269 k/uL (150-450); RBC 2.51 m/uL (4.30-5.90); RDW 15.2 % (11.5-15.5); WBC 25.1 k/uL (3.8-10.6)
[2024-01-04 10:04] LABS: African American GFR (CKD) >90 (>60 ml/min/1.73 sqM); Anion Gap 4 mmol/L; Blood Urea Nitrogen 26 mg/dL (9-20); C Reactive Protein <0.5 mg/dL (<1.0); Carbon Dioxide 35 mmol/L (22-30); Chloride 93 mmol/L (98-107); Glucose 102 mg/dL (74-99); Non-African American GFR(CKD) >90 (>60 ml/min/1.73 sqM); Potassium 5.2 mmol/L (3.5-5.1); Sodium 132 mmol/L (137-145)
--- NOTE | 2024-01-04 10:33 | P.PN ---
Subjective Progress Note Date: 01/04/24 Hospital Course: 63 year old man with history of pulmonary fibrosis with chronic respiratory fa ilure on 3 and half liters nasal cannula at home, hypertension, previous history of EtOH abuse presented for evaluation of chills, shakes, generalized weakness. In the emergency room, patient was afebrile, 124/88, heart rate 91, 100% on 6 L of nasal cannula. CBC demonstrated leukocytosis to 22.2. Basic metabolic panel showed sodium of 133, potassium 5.2, chloride of 84, CO2 of 39. Liver function test showed AST of 60, ALT of 170, alkaline phosphatase of 170, total bilirubin of 0.7. Troponin was 0.015, BNP was 527. ABG demonstrated pH of 7.47, pCO2 of 57, pO2 of 212. EKG showed sinus rhythm with peaked P waves. Chest x-ray appears to have chronic interstitial fibrotic changes bilaterally, worse on the right, and appears similar to prior. Procalcitonin negative. Leukocytosis is persistent. Microbiology showed blood cultures positive for GPC in clusters, staph epi. On IV Zosyn. Subjective: Patient seen and examined at bedside. No acute events overnight. Claims that breathing is better. Having difficulty getting out of the bed. Pertinent positives and negatives as discussed above, a complete review of systems was performed and all other systems are negative. Vitals Signs Reviewed. General: Nontoxic, no distress, appears at stated age, thin appearing Derm: Warm, dry, PEG tube site clean, dry, intact Head: Atraumatic, normocephalic, symmetric Eyes: EOMI, no lid lag, anicteric sclera Mouth: No lip lesion, mucus membranes moist Cardiovascular: S1S2 reg, no murmur Lungs: Fine rales, no accessory muscle use, supplemental oxygen Abdominal: Soft, nontender to palpation, no guarding, no appreciable organomegaly Ext: No gross muscle atrophy, no edema, no contractures Neuro: CN II-XI grossly intact, no focal neuro deficits Psych: Alert, oriented, appropriate affect Data Reviewed Today: Pertinent Labs: WBC 25.1, hemoglobin 8.9, potassium 5.2, sodium 132, creatinine 0.74, blood sugars range between 10 2-1 58 Imaging: No new imaging Assessment and Plan: Active: Staph epi bacteremia, true infection versus contaminant Leukocytosis, possibly steroid-induced Recurrent aspiration, PEG dependent Severe protein calorie malnutrition Mild hyponatremia Chronic back pain Hyperkalemia -Pulmonology following, patient on DuoNebs every 2 hours as needed, and scheduled 4 times daily, IV Solu-Medrol changed to prednisone 40 daily - Continue IV Zosyn 3.375 g every 8 hours - Repeat blood cultures pending, ID following - Continue tube feeds, dietitian following - On morphine 15 mg every 6 however, monitor for sedation -Hyperkalemia possibly in the setting of steroid use, repeat BMP later in the afternoon, if still persistently elevated, will provide treatment. -Follow CBC Chronic: Chronic respiratory failure Interstitial pulmonary fibrosis Anxiety Depression Hypertension DVT ppx: Lovenox Code status: Full code Anticipated discharge place: Pending clinical course Anticipated discharge time: Pending clinical course Objective - Vital Signs Vital signs: Vital Signs Temp 97.8 F 01/04/24 08:00 Pulse 70 01/04/24 08:00 Resp 16 01/04/24 09:21 BP 100/72 01/04/24 08:00 Pulse Ox 99 01/04/24 08:12 FiO2 Intake & Output 01/03/24 01/04/24 01/04/24 18:59 06:59 18:59 Other: Voiding Method Urinal Urinal - Labs CBC & Chem 7: 01/04/24 08:49 01/04/24 08:49 Labs: Abnormal Lab Results - Last 24 Hours (Table) 01/03/24 01/03/24 01/03/24 Range/Units 09:56 09:56 11:55 WBC 25.5 H (3.8-10.6) k/uL RBC 2.71 L (4.30-5.90) m/uL Hgb 8.9 L D (13.0-17.5) gm/dL Hct 28.9 L (39.0-53.0) % MCV 106.9 H (80.0-100.0) fL MCH (25.0-35.0) pg MCHC 30.9 L (31.0-37.0) g/dL Neutrophils # 23.8 H (1.3-7.7) k/uL Lymphocytes # 0.4 L (1.0-4.8) k/uL Monocytes # (0-1.0) k/uL Sodium 132 L (137-145) mmol/L Potassium (3.5-5.1) mmol/L Chloride 96 L (98-107) mmol/L Carbon Dioxide (22-30) mmol/L BUN 31 H (9-20) mg/dL Glucose 140 H (74-99) mg/dL POC Glucose (mg/dL) 158 H (70-110) mg/dL ALT 51 H (4-49) U/L Total Protein 5.5 L (6.3-8.2) g/dL Albumin 3.1 L (3.5-5.0) g/dL 01/03/24 01/04/24 01/04/24 Range/Units 18:02 00:07 06:10 WBC (3.8-10.6) k/uL RBC (4.30-5.90) m/uL Hgb (13.0-17.5) gm/dL Hct (39.0-53.0) % MCV (80.0-100.0) fL MCH (25.0-35.0) pg MCHC (31.0-37.0) g/dL Neutrophils # (1.3-7.7) k/uL Lymphocytes # (1.0-4.8) k/uL Monocytes # (0-1.0) k/uL Sodium (137-145) mmol/L Potassium (3.5-5.1) mmol/L Chloride (98-107) mmol/L Carbon Dioxide (22-30) mmol/L BUN (9-20) mg/dL Glucose (74-99) mg/dL POC Glucose (mg/dL) 158 H 143 H 140 H (70-110) mg/dL ALT (4-49) U/L Total Protein (6.3-8.2) g/dL Albumin (3.5-5.0) g/dL 01/04/24 01/04/24 Range/Units 08:49 08:49 WBC 25.1 H (3.8-10.6) k/uL RBC 2.51 L (4.30-5.90) m/uL Hgb 8.9 L (13.0-17.5) gm/dL Hct 26.4 L (39.0-53.0) % MCV 104.9 H (80.0-100.0) fL MCH 35.5 H (25.0-35.0) pg MCHC (31.0-37.0) g/dL Neutrophils # 21.0 H (1.3-7.7) k/uL Lymphocytes # (1.0-4.8) k/uL Monocytes # 1.5 H (0-1.0) k/uL Sodium 132 L (137-145) mmol/L Potassium 5.2 H (3.5-5.1) mmol/L Chloride 93 L (98-107) mmol/L Carbon Dioxide 35 H (22-30) mmol/L BUN 26 H (9-20) mg/dL Glucose 102 H (74-99) mg/dL POC Glucose (mg/dL) (70-110) mg/dL ALT (4-49) U/L Total Protein (6.3-8.2) g/dL Albumin (3.5-5.0) g/dL Microbiology - Last 24 Hours (Table) 01/01/24 14:47 Blood Culture Gram Stain - Preliminary Blood Blood Culture - Preliminary Coagulase Negative Staph Molecular ID
--- NOTE | 2024-01-04 11:26 | P.PN ---
Subjective Progress Note Date: 01/04/24 Patient is a 63-year-old white male with past medical history significant for advanced pulmonary fibrosis and restrictive lung disease treated with Ofev, previous ventilator dependent respiratory failure, alcoholism. Patient did have a recent prolonged and complicated hospitalization 12/16/2023 through 12/28/2023. He was treated for aspiration pneumonia. He did undergo a swallow evaluation showed aspiration with various consistencies. He did have a a PEG tube placed 12/26/2023. Patient returned to the emergency room yesterday afternoon complaining of severe weakness. He has no other specific complaints. He denies any change in his chronic shortness of breath. He does have a chronic cough. Currently, he is producing some clear sputum. No fevers. No chest pain. A follow-up chest x-ray showed chronic lung changes with low lung volumes and mild bibasilar atelectasis. Improvement in the patient's previous consolidative lung infiltrates. There is abnormal gas pattern suggestive of po ssible obstruction or severe ileus. This was followed up with an abdominal and pelvis CT which showed a likely nonobstructive bowel gas pattern. Patient is currently lying in bed on 4 L/min nasal cannula, in no acute distress. He actually has no specific complaints other than generalized and severe weakness. He has had to use a wheelchair to get around. His daughter and son-in-law have moved in to help him. He has been using his PEG tube for bolus feeding. Denies nausea, vomiting, abdominal pain. He has had loose bowel movements. 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 An ABG was done in the emergency room, which showed a component of compensated chronic hypercapnic respiratory failure. CBC on arrival: WBC count 22, hemoglobin 16.3, hematocrit 50.3, platelets 395. CMP on arrival: Sodium 133, potassium 5.2, chloride 84, serum bicarb 39, BUN 30, creatinine 0.69, glucose 157. Lactic acid level 2.7 down to 1.7. LFTs mildly elevated. Troponin 0.015. NT proBNP 527. In the emergency room, the patient was continued on Zosyn. Currently afebrile. Hemodynamically stable. The patient was seen today and the patient is currently on 40s of oxygen by nasal cannula. He continues to have some cough and congestion.The patient blood work shows leukocytosis with a white cell count of 25 which is slightly higher compared to yesterday with a hemoglobin of 13.5 which is lower compared to yesterday. Platelet counts are stable at 313. The patient is having normal renal function with a BUN of 22 and a creatinine of 0.6 and sodium levels at 132. Procalcitonin level came back at 0.08. The scleroderma antibodies are negative. RUBY was also negative. I reviewed the CAT scan of the abdomen and p carlos and the CAT scan shows chronic scarring and bronchiectatic change in lung bases. Prominent pulmonary arteries consistent with pulm hypertension. Rest of the intra-abdominal structures were essentially within normal limits and the PEG tube is in a good location. There are some nonspecific bowel gas pattern without any evidence of any obstruction or small bowel dilatation. As for the chest x-ray that was done at time of admission, it shows a smaller lung volumes, some atelectatic changes and chronic scarring lung base bilaterally consistent with with his underlying pulmonary fibrosis. Aspiration was suspected and the patient remains on IV Zosyn. Patient is also on DuoNeb nebulized treatments [id number]. The patient is on IV Solu-Medrol 60 mg every 6 hours. Rest of the home medication have been resumed. The patient on Lovenox for DVT prophylaxis. On 01/03/2024, the patient is being seen for a follow-up. The patient is feeling better on today's evaluation. The patient is down to 2 L of oxygen by nasal cannula which is his baseline oxygen requirements. Denies having any chest pain. No other significant events overnight. The white cell count remains elevated at 25.5 with a hemoglobin 8.6 and a platelet count of 314. BUN is at 31 with a creatinine of 0.7 and sodium levels at 132. Procalcitonin level was low at 0.08. The patient remains on DuoNeb updrafts. The patient remains on IV Solu-Medrol 60 mg every 6 hours. The patient remains on IV Zosyn which is essentially empiric antibiotic coverage. Blood cultures are negative thus far. The patient was also started on enteral feeding for nutritional support and the patient is currently on Jevity 1.2 at the rate of 42 cc an hour. Overnight, the patient is in a episode of hypotension with a systolic blood pressure in the low 70s. The patient was given a liter bolus and currently is normotensive. Denies having any chest pain. No altered mentation. No chest pain. No other significant events otherwise. On today's evaluation of 01/04/2024, the patient is doing well. No specific complaints. Feeling better and stronger compared to yesterday. He is on 2 L of oxygen by nasal cannula with a pulse ox of 99%. Afebrile. Hemodynamically stable. White cell count is at 25 which remains elevated and I think this is partly related to steroids. I am going to discontinue the IV Solu-Medrol and the patient will be started on oral prednisone. White cell count is stable at 8.9. This is stable compared to yesterday. Nevertheless, the patient experienced a significant drop in the hemoglobin since his previous admissions. No evidence of any GI bleeding at this point in time. PEG tube site is clean and the patient is having enteral feeding for nutritional support. No reported aspiration at this point in time. Microbiology from the blood cultures showing gram-positive cocci in clusters and this is consistent with coagulase-negative staph. BUN is at 26 with a creatinine of 0.7 and a sodium levels at 132 with a potassium level of 5.2.This patient did not show any signs of any GI bleeding. He did encounter a brief episode of hypotension 48 hours ago and this recovered with IV fluids and he has been normotensive since. He is feeling fine. Hemoglobin is being monitored. Objective - Vital Signs Vital signs: Vital Signs Temp 97.8 F 01/04/24 08:00 Pulse 70 01/04/24 08:00 Resp 16 01/04/24 09:21 BP 100/72 01/04/24 08:00 Pulse Ox 99 01/04/24 08:12 FiO2 Intake & Output 01/03/24 01/04/24 01/04/24 18:59 06:59 18:59 Other: Voiding Method Urinal Urinal - Exam GENERAL EXAM: Alert, 63-year-old white male, pleasant, cachectic, comfortable in no apparent distress. Requires assistance to sit up in bed. The patient is currently on 3 L of oxygen nasal cannula HEAD: Normocephalic and atraumatic EYES: Normal reaction of pupils, equal size. NOSE: Clear with pink turbinates. THROAT: No erythema or exudates. NECK: No masses, no JVD. CHEST: No chest wall deformity. LUNGS: Equal air entry with inspiratory bibasilar Velcro crackles. . No conversational dyspnea or accessory muscle use while at rest. CVS: S1 and S2 normal with no audible murmur, regular rhythm. No extra heart sounds ABDOMEN: No hepatosplenomegaly, active bowel sounds, no guarding or rigidity. PEG tube site clean, dry, without any drainage. SPINE: No scoliosis or deformity SKIN: No rashes CENTRAL NERVOUS SYSTEM: No focal deficits, tone is normal in all 4 extremities. EXTREMITIES: There is no peripheral edema, clubbing, or cyanosis. Peripheral pulses are intact. - Labs CBC & Chem 7: 01/04/24 08:49 01/04/24 08:49 Labs: Abnormal Lab Results - Last 24 Hours (Table) 01/03/24 01/03/24 01/03/24 Range/Units 09:56 09:56 11:55 WBC 25.5 H (3.8-10.6) k/uL RBC 2.71 L (4.30-5.90) m/uL Hgb 8.9 L D (13.0-17.5) gm/dL Hct 28.9 L (39.0-53.0) % MCV 106.9 H (80.0-100.0) fL MCHC 30.9 L (31.0-37.0) g/dL Neutrophils # 23.8 H (1.3-7.7) k/uL Lymphocytes # 0.4 L (1.0-4.8) k/uL Sodium 132 L (137-145) mmol/L Chloride 96 L (98-107) mmol/L BUN 31 H (9-20) mg/dL Glucose 140 H (74-99) mg/dL POC Glucose (mg/dL) 158 H (70-110) mg/dL ALT 51 H (4-49) U/L Total Protein 5.5 L (6.3-8.2) g/dL Albumin 3.1 L (3.5-5.0) g/dL 01/03/24 01/04/24 01/04/24 Range/Units 18:02 00:07 06:10 WBC (3.8-10.6) k/uL RBC (4.30-5.90) m/uL Hgb (13.0-17.5) gm/dL Hct (39.0-53.0) % MCV (80.0-100.0) fL MCHC (31.0-37.0) g/dL Neutrophils # (1.3-7.7) k/uL Lymphocytes # (1.0-4.8) k/uL Sodium (137-145) mmol/L Chloride (98-107) mmol/L BUN (9-20) mg/dL Glucose (74-99) mg/dL POC Glucose (mg/dL) 158 H 143 H 140 H (70-110) mg/dL ALT (4-49) U/L Total Protein (6.3-8.2) g/dL Albumin (3.5-5.0) g/dL Microbiology - Last 24 Hours (Table) 01/01/24 14:47 Blood Culture Gram Stain - Preliminary Blood Blood Culture - Preliminary Coagulase Negative Staph Molecular ID Assessment and Plan Plan: Acute on chronic hypoxemic respiratory failure, follow-up chest x-ray shows improvement in the patient's previous superimposed lung consolidations. There are chronic lung changes with low lung volumes and mild bibasilar atelectasis versus scarring. The patient's oxygenation is stable and the patient is currently on 3 L O2 nasal cannula. Suspect chemical pneumonitis. Procalcitonin level is nonelevated. Recent hospital admission for suspected aspiration pneumonia, patient continues on Zosyn. Micro negative from recent admission. Acute leukocytosis, currently under investigation. White cell count remains elevated. Could be related to systemic steroids. Acute drop in hemoglobin. No evidence of any GI bleeding. Interstitial pulmonary fibrosis, previously maintained on Ofev, unable to take the medication as the medication is not crushable through the PEG tube. Chronic hypoxemic respiratory failure, secondary to above, normally maintained on 3 L/min nasal cannula Chronic hypercapnic respiratory failure Severe generalized weakness and deconditioning Severe protein calorie malnutrition Dysphagia, status post PEG tube insertion on 12/26/2023, has been giving himself bolus feeds at home. History of alcoholism Osteoarthritis Chronic back pain Plan: Aspiration precautions Continue supplemental oxygen Continue empiric antibiotic coverage with IV Zosyn Discontinue IV Solu-Medrol start the patient on a prednisone taper starting dose of 40 mg p.o. daily. Will consult again with speech pathology and see if the patient is able to take his Ofev along with some thickened material. This to be done today. He has not been able to take his Ofev, states that it is contraindicated to crush and put down his PEG tube. The patient was started on Jevity which is running at 47 cc an hour. Monitor the hemoglobin Monitor the white cell count Overall prognosis is guarded related to above-mentioned comorbidities.
[2024-01-04 12:04] LABS: Glucose,Whole Blood 122 mg/dL (70-110)
--- NOTE | 2024-01-04 14:10 | P.PN ---
Subjective Progress Note Date: 01/04/24 Principal diagnosis: Reason for follow-up is positive blood culture and leukocytosis Patient is a 63-year-old male with a past medical history significant for pulmonary fibrosis EtOH abuse DTs, recently prolonged stay for aspiration pneumonia and cardiac PEG tube presenting back to the hospital with worsening shortness of breath did have a positive blood culture prompting this consultation. On today's visit that is 01/04/2024,the patient remains to be afebrile, patient is on 3 L nasal cannula supplemental oxygen and denies any worsening shortness of breath no chest pain and no worsening cough.Patient denies having any nausea or vomiting, no abdominal pain and no diarrhea, no new symptoms. Patient white count is 25.1 creatinine 0.74 CRP is less than 0.5 Objective - Vital Signs Vital signs: Vital Signs Temp 98.1 F 01/04/24 11:44 Pulse 73 01/04/24 11:44 Resp 18 01/04/24 11:44 BP 118/70 01/04/24 11:44 Pulse Ox 92 L 01/04/24 11:44 FiO2 Intake & Output 01/03/24 01/04/24 01/04/24 18:59 06:59 18:59 Other: Voiding Method Urinal Urinal - Exam GENERAL DESCRIPTION: Middle-age male up in bed in no distress RESPIRATORY SYSTEM: Unlabored breathing , decreased breath sounds at bases HEART: S1 S2 regular rate and rhythm , ABDOMEN: Soft , no tenderness EXTREMITIES: No edema feet - Labs CBC & Chem 7: 01/04/24 08:49 01/04/24 08:49 Labs: Abnormal Lab Results - Last 24 Hours (Table) 01/03/24 01/04/24 01/04/24 Range/Units 18:02 00:07 06:10 WBC (3.8-10.6) k/uL RBC (4.30-5.90) m/uL Hgb (13.0-17.5) gm/dL Hct (39.0-53.0) % MCV (80.0-100.0) fL MCH (25.0-35.0) pg Neutrophils # (1.3-7.7) k/uL Monocytes # (0-1.0) k/uL Sodium (137-145) mmol/L Potassium (3.5-5.1) mmol/L Chloride (98-107) mmol/L Carbon Dioxide (22-30) mmol/L BUN (9-20) mg/dL Glucose (74-99) mg/dL POC Glucose (mg/dL) 158 H 143 H 140 H (70-110) mg/dL 01/04/24 01/04/24 01/04/24 Range/Units 08:49 08:49 12:02 WBC 25.1 H (3.8-10.6) k/uL RBC 2.51 L (4.30-5.90) m/uL Hgb 8.9 L (13.0-17.5) gm/dL Hct 26.4 L (39.0-53.0) % MCV 104.9 H (80.0-100.0) fL MCH 35.5 H (25.0-35.0) pg Neutrophils # 21.0 H (1.3-7.7) k/uL Monocytes # 1.5 H (0-1.0) k/uL Sodium 132 L (137-145) mmol/L Potassium 5.2 H (3.5-5.1) mmol/L Chloride 93 L (98-107) mmol/L Carbon Dioxide 35 H (22-30) mmol/L BUN 26 H (9-20) mg/dL Glucose 102 H (74-99) mg/dL POC Glucose (mg/dL) 122 H (70-110) mg/dL Microbiology - Last 24 Hours (Table) 01/01/24 14:47 Blood Culture Gram Stain - Preliminary Blood Blood Culture - Preliminary Coagulase Negative Staph Molecular ID Assessment and Plan (1) Positive blood culture Current Visit: Yes Status: Acute Code(s): R78.81 - BACTEREMIA SNOMED Code(s): 699673334 (2) Leukocytosis Current Visit: No Status: Acute Code(s): D72.829 - ELEVATED WHITE BLOOD CELL COUNT, UNSPECIFIED SNOMED Code(s): 035965707 Plan: 1patient with a positive blood culture with staph epi will likely significant admission of the patient no clinical disease to go along with it and there is no need for any vancomycin blood culture has been repeated document clearance and currently pending 2-patient with admission to hospital worsening shortness of breath possibly related to his underlying pulmonary fibrosis/tracheobronchitis and chest x-ray not showing pneumonia and did have normal procalcitonin 3-leukocytosis more likely steroid related and will monitor closely Dictation was produced using [employer] dictation software. please excuse any grammatical, word or spelling errors. Time with Patient: Less than 30
[2024-01-04 16:37] LABS: African American GFR (CKD) >90 (>60 ml/min/1.73 sqM); Anion Gap 4 mmol/L; Blood Urea Nitrogen 26 mg/dL (9-20); Calcium 8.8 mg/dL (8.4-10.2); Carbon Dioxide 34 mmol/L (22-30); Chloride 92 mmol/L (98-107); Glucose 119 mg/dL (74-99); Non-African American GFR(CKD) >90 (>60 ml/min/1.73 sqM); Sodium 130 mmol/L (137-145)
[2024-01-04 16:52] LABS: Potassium 5.4 mmol/L (3.5-5.1)
[2024-01-04 18:11] LABS: Glucose,Whole Blood 156 mg/dL (70-110)
[2024-01-05 04:13] LABS: % Iron Saturation 26.06 (15.00-50.00)
[2024-01-05 05:29] LABS: Glucose,Whole Blood 113 mg/dL (70-110)
[2024-01-05 05:50] LABS: Basophils % (A) 0 %; Eosinophils # (A) 0.1 k/uL (0-0.7); Eosinophils % (A) 1 %; HCT 24.6 % (39.0-53.0); HGB 7.9 gm/dL (13.0-17.5); Lymphocytes % (A) 12 %; MCHC 32.3 g/dL (31.0-37.0); MCV 105.1 fL (80.0-100.0); Macrocytosis Moderate; Mean Platelet Volume 9.4; Monocytes # (A) 0.9 k/uL (0-1.0); Monocytes % (A) 6 %; Neutrophils # (A) 13.5 k/uL (1.3-7.7); Neutrophils % (A) 81 %; Platelet Count 275 k/uL (150-450); RBC 2.34 m/uL (4.30-5.90); WBC 16.7 k/uL (3.8-10.6)
[2024-01-05 08:22] LABS: African American GFR (CKD) >90 (>60 ml/min/1.73 sqM); Anion Gap 2 mmol/L; Blood Urea Nitrogen 24 mg/dL (9-20); Calcium 9.2 mg/dL (8.4-10.2); Carbon Dioxide 37 mmol/L (22-30); Chloride 91 mmol/L (98-107); Glucose 100 mg/dL (74-99); Non-African American GFR(CKD) >90 (>60 ml/min/1.73 sqM); Sodium 130 mmol/L (137-145)
--- NOTE | 2024-01-05 10:18 | P.PN ---
Subjective Progress Note Date: 01/05/24 Hospital Course: 63 year old man with history of pulmonary fibrosis with chronic respiratory fa ilure on 3 and half liters nasal cannula at home, hypertension, previous history of EtOH abuse presented for evaluation of chills, shakes, generalized weakness. In the emergency room, patient was afebrile, 124/88, heart rate 91, 100% on 6 L of nasal cannula. CBC demonstrated leukocytosis to 22.2. Basic metabolic panel showed sodium of 133, potassium 5.2, chloride of 84, CO2 of 39. Liver function test showed AST of 60, ALT of 170, alkaline phosphatase of 170, total bilirubin of 0.7. Troponin was 0.015, BNP was 527. ABG demonstrated pH of 7.47, pCO2 of 57, pO2 of 212. EKG showed sinus rhythm with peaked P waves. Chest x-ray appears to have chronic interstitial fibrotic changes bilaterally, worse on the right, and appears similar to prior. Procalcitonin negative. Leukocytosis is persistent. Microbiology showed blood cultures positive for GPC in clusters, staph epi. IV Zosyn discontinued. Repeat blood cultures negative. Patient persistently anemic, likely from hypoproliferation. Subjective: Patient seen and examined at bedside. No acute events overnight. Claims that breathing is better. Having difficulty getting out of the bed. No bleeding. Pertinent positives and negatives as discussed above, a complete review of systems was performed and all other systems are negative. Vitals Signs Reviewed. General: Nontoxic, no distress, appears at stated age, thin appearing Derm: Warm, dry, PEG tube site clean, dry, intact Head: Atraumatic, normocephalic, symmetric Eyes: EOMI, no lid lag, anicteric sclera Mouth: No lip lesion, mucus membranes moist Cardiovascular: S1S2 reg, no murmur Lungs: Fine rales, no accessory muscle use, supplemental oxygen Abdominal: Soft, nontender to palpation, no guarding, no appreciable organomegaly Ext: No gross muscle atrophy, no edema, no contractures Neuro: CN II-XI grossly intact, no focal neuro deficits Psych: Alert, oriented, appropriate affect Data Reviewed Today: Pertinent Labs: WBC 16.7, hemoglobin 7.9, reticulocyte count 3%, haptoglobin 245, LDH 343, ferritin 707, iron 86, TIBC 330, percent saturation 26.06, sodium 130, potassium 5, creatinine 0.72, blood sugars 113. Imaging: No new imaging Assessment and Plan: Active: Acute macrocytic anemia, likely bone marrow suppression - No active bleeding - Calculated absolute reticulocyte count less than 2, consistent with hypoproliferative phenomena - If continued to drop, will consult hematology - Repeat CBC tomorrow Staph epi bacteremia, contaminant Leukocytosis, possibly steroid-induced, improving Recurrent aspiration, PEG dependent Severe protein calorie malnutrition Mild hyponatremia Chronic back pain Hyperkalemia -Pulmonology following, patient on DuoNebs every 2 hours as needed, and scheduled 4 times daily, prednisone 40 daily -Antibiotics discontinued -ID following - Continue tube feeds, dietitian following - On morphine 15 mg every 6 however, monitor for sedation Chronic: Chronic respiratory failure Interstitial pulmonary fibrosis Anxiety Depression Hypertension DVT ppx: Lovenox Code status: Full code Anticipated discharge place: Pending clinical course Anticipated discharge time: Pending clinical course Objective - Vital Signs Vital signs: Vital Signs Temp 98.7 F 01/05/24 06:56 Pulse 90 01/05/24 06:56 Resp 17 01/05/24 06:56 BP 100/64 01/05/24 06:56 Pulse Ox 97 01/05/24 06:56 FiO2 Intake & Output 01/04/24 01/05/24 01/05/24 18:59 06:59 18:59 Output Total 450 200 Balance -450 -200 Output: Urine 450 200 Other: Voiding Method Urinal Urinal Urinal - Labs CBC & Chem 7: 01/05/24 05:29 01/05/24 05:29 Labs: Abnormal Lab Results - Last 24 Hours (Table) 01/04/24 01/04/24 01/04/24 Range/Units 12:02 15:50 15:50 WBC (3.8-10.6) k/uL RBC (4.30-5.90) m/uL Hgb (13.0-17.5) gm/dL Hct (39.0-53.0) % MCV (80.0-100.0) fL Neutrophils # (1.3-7.7) k/uL Retic Count 3.0 H (0.5-2.0) % Haptoglobin (31.2-198.0) mg/dL Sodium 130 L (137-145) mmol/L Potassium 5.4 H (3.5-5.1) mmol/L Chloride 92 L (98-107) mmol/L Carbon Dioxide 34 H (22-30) mmol/L BUN 26 H (9-20) mg/dL Glucose 119 H (74-99) mg/dL POC Glucose (mg/dL) 122 H (70-110) mg/dL Ferritin (22.0-322.0) ng/mL Lactate Dehydrogenase (120-246) U/L 01/04/24 01/04/24 01/04/24 Range/Units 15:50 15:50 18:09 WBC (3.8-10.6) k/uL RBC (4.30-5.90) m/uL Hgb (13.0-17.5) gm/dL Hct (39.0-53.0) % MCV (80.0-100.0) fL Neutrophils # (1.3-7.7) k/uL Retic Count (0.5-2.0) % Haptoglobin 245.0 H (31.2-198.0) mg/dL Sodium (137-145) mmol/L Potassium (3.5-5.1) mmol/L Chloride (98-107) mmol/L Carbon Dioxide (22-30) mmol/L BUN (9-20) mg/dL Glucose (74-99) mg/dL POC Glucose (mg/dL) 156 H (70-110) mg/dL Ferritin 707.0 H (22.0-322.0) ng/mL Lactate Dehydrogenase 343 H (120-246) U/L 01/05/24 01/05/24 01/05/24 Range/Units 05:28 05:29 05:29 WBC 16.7 H (3.8-10.6) k/uL RBC 2.34 L (4.30-5.90) m/uL Hgb 7.9 L (13.0-17.5) gm/dL Hct 24.6 L (39.0-53.0) % MCV 105.1 H (80.0-100.0) fL Neutrophils # 13.5 H (1.3-7.7) k/uL Retic Count (0.5-2.0) % Haptoglobin (31.2-198.0) mg/dL Sodium 130 L (137-145) mmol/L Potassium (3.5-5.1) mmol/L Chloride 91 L (98-107) mmol/L Carbon Dioxide 37 H (22-30) mmol/L BUN 24 H (9-20) mg/dL Glucose 100 H (74-99) mg/dL POC Glucose (mg/dL) 113 H (70-110) mg/dL Ferritin (22.0-322.0) ng/mL Lactate Dehydrogenase (120-246) U/L Microbiology - Last 24 Hours (Table) 01/04/24 09:13 Gram Stain - Preliminary Sputum 01/03/24 16:55 Blood Culture - Preliminary Blood 01/03/24 15:00 Blood Culture - Preliminary Blood 01/01/24 14:47 Blood Culture Gram Stain - Preliminary Blood Blood Culture - Preliminary Coagulase Negative Staph Molecular ID
[2024-01-05 11:45] LABS: Glucose,Whole Blood 127 mg/dL (70-110)
--- NOTE | 2024-01-05 14:31 | CDI ---
Documentation Clarification Form Date: 01/05/2024 02:08:08 PM From: Deb Larsen RN CCDS Phone: [phone] Admit Date: 01/01/2024 03:54:00 PM Patient Name: Dorian Webb Visit Number: [id number] Discharge Date: ATTENTION: The Clinical Documentation Specialists (CDI) and [facility] Coding Staff appreciate your assistance in clarifying documentation. Please respond to the clarification below the line at the bottom and electronically sign. The CDI & [facility] Coding staff will review the response and follow-up if needed. Please note: Queries are made part of the Legal Health Record. If you have any questions, please contact the author of this message via ITS. Dr. Grey Braun The patients principal diagnosis - the diagnosis that was chiefly responsible for the admission - has not been clearly identified and clarification is requested. The patient presented with the following Aspiration Event, Leukocytosis, chills, shakes and generalized weakness. History/Risk factors: 63 year old male recently discharged 12/27 from Hospital treated for aspiration pneumonia, The patient had a PEG tube placed. On 12/31 The patient returned to the ED with severe weakness. Medical history: Home oxygen 3L, Pulmonary fibrosis, chronic hypoxemic respiratory failure, ETOH abuse and HTN 12/31, H&P. Clinical Indicators: Lab findings, 12/31: Wbc 22.2, Neutrophils 20.5, Na 133, K 5.2, Chl 84, Carbon dioxide 39, BUN 30, Cr 0.69, GFR >90, Lactic acid 2.4 Calcium 10.8, AST 60, ALT 105, Alkaline Phosphatase 170. Blood gas, 12/31: right brachial, PH 7.47, pCO2 57, pO2 212, HCO3 41, Total CO2 43, O2 Saturation 99.3 CXR, 12/31: Chronic lung changes, with low lung volumes and mild bibasilar subsegmental atelectasis vs scarring. Vital Signs: 12/31 B/P 139/80, HR 101, Temp 97.7F Oral, RR 26, SpO2 84% 5L nc Pulmonary note, 01/02: Acute on chronic hypoxemic respiratory failure. Suspect chemical pneumonitis. Treatment: 12/31 Ventolin 5mg Inhalation x 1; Atrovent Nebulized 0.5mg Inhalation x 1, 12/31 Solumedrol 125mg IV x 1; 12/31 Zosyn 3.375gm IVPB x1; 12/31 0.9NS 1L IV Bolus; Albuterol/Ipratropium 0.5 Mg-3Mg/3Ml Soln 3ml inhalation QID ИРИНА; 12/31 01/02 Solumedrol 60mg IV Q6H ИРИНА; 01/01 01/04 Zosyn 3.375gm 100mls @ 25mls/hr IVPB Q8HR; Consults: Pulmonary see above. In your professional opinion, can you please clarify which diagnosis, after study, was the reason chiefly responsible for the admission? [ x ] Chemical pneumonitis [ x ] Acute Hypoxic Respiratory Failure [ ] Other, please specify [ ] Unable to determine Documented 01/08 Medicine note: Acute on chronic respiratory failure with hypoxia. Pulmonary fibrosis with chronic resp failure. Recurrent aspiration, PEG tube dependent. Sepsis upon arrival with lactic acid 2.7 heart rate 101, respiratory rate 26 and WBC count of 22.2 . James Osullivan NP / Laci MOROCHO (Template Last Revised: November 2020) MTDD
--- NOTE | 2024-01-05 15:16 | P.PN ---
Subjective Progress Note Date: 01/05/24 Patient is a 63-year-old white male with past medical history significant for advanced pulmonary fibrosis and restrictive lung disease treated with Ofev, previous ventilator dependent respiratory failure, alcoholism. Patient did have a recent prolonged and complicated hospitalization 12/16/2023 through 12/28/2023. He was treated for aspiration pneumonia. He did undergo a swallow evaluation showed aspiration with various consistencies. He did have a a PEG tube placed 12/26/2023. Patient returned to the emergency room yesterday afternoon complaining of severe weakness. He has no other specific complaints. He denies any change in his chronic shortness of breath. He does have a chronic cough. Currently, he is producing some clear sputum. No fevers. No chest pain. A follow-up chest x-ray showed chronic lung changes with low lung volumes and mild bibasilar atelectasis. Improvement in the patient's previous consolidative lung infiltrates. There is abnormal gas pattern suggestive of po ssible obstruction or severe ileus. This was followed up with an abdominal and pelvis CT which showed a likely nonobstructive bowel gas pattern. Patient is currently lying in bed on 4 L/min nasal cannula, in no acute distress. He actually has no specific complaints other than generalized and severe weakness. He has had to use a wheelchair to get around. His daughter and son-in-law have moved in to help him. He has been using his PEG tube for bolus feeding. Denies nausea, vomiting, abdominal pain. He has had loose bowel movements. He has not been able to take his Ofev, he states that parimutuel cashier does not recommend crushing and putting through PEG tube. An ABG was done in the emergency room, which showed a component of compensated chronic hypercapnic respiratory failure. CBC on arrival: WBC count 22, hemoglobin 16.3, hematocrit 50.3, platelets 395. CMP on arrival: Sodium 133, potassium 5.2, chloride 84, serum bicarb 39, BUN 30, creatinine 0.69, glucose 157. Lactic acid level 2.7 down to 1.7. LFTs mildly elevated. Troponin 0.015. NT proBNP 527. In the emergency room, the patient was continued on Zosyn. Currently afebrile. Hemodynamically stable. The patient was seen today and the patient is currently on 40s of oxygen by nasal cannula. He continues to have some cough and congestion.The patient blood work shows leukocytosis with a white cell count of 25 which is slightly higher compared to yesterday with a hemoglobin of 13.5 which is lower compared to yesterday. Platelet counts are stable at 313. The patient is having normal renal function with a BUN of 22 and a creatinine of 0.6 and sodium levels at 132. Procalcitonin level came back at 0.08. The scleroderma antibodies are negative. RUBY was also negative. I reviewed the CAT scan of the abdomen and p carlos and the CAT scan shows chronic scarring and bronchiectatic change in lung bases. Prominent pulmonary arteries consistent with pulm hypertension. Rest of the intra-abdominal structures were essentially within normal limits and the PEG tube is in a good location. There are some nonspecific bowel gas pattern without any evidence of any obstruction or small bowel dilatation. As for the chest x-ray that was done at time of admission, it shows a smaller lung volumes, some atelectatic changes and chronic scarring lung base bilaterally consistent with with his underlying pulmonary fibrosis. Aspiration was suspected and the patient remains on IV Zosyn. Patient is also on DuoNeb nebulized treatments [id number]. The patient is on IV Solu-Medrol 60 mg every 6 hours. Rest of the home medication have been resumed. The patient on Lovenox for DVT prophylaxis. On 01/03/2024, the patient is being seen for a follow-up. The patient is feeling better on today's evaluation. The patient is down to 2 L of oxygen by nasal cannula which is his baseline oxygen requirements. Denies having any chest pain. No other significant events overnight. The white cell count remains elevated at 25.5 with a hemoglobin 8.6 and a platelet count of 314. BUN is at 31 with a creatinine of 0.7 and sodium levels at 132. Procalcitonin level was low at 0.08. The patient remains on DuoNeb updrafts. The patient remains on IV Solu-Medrol 60 mg every 6 hours. The patient remains on IV Zosyn which is essentially empiric antibiotic coverage. Blood cultures are negative thus far. The patient was also started on enteral feeding for nutritional support and the patient is currently on Jevity 1.2 at the rate of 42 cc an hour. Overnight, the patient is in a episode of hypotension with a systolic blood pressure in the low 70s. The patient was given a liter bolus and currently is normotensive. Denies having any chest pain. No altered mentation. No chest pain. No other significant events otherwise. On today's evaluation of 01/04/2024, the patient is doing well. No specific complaints. Feeling better and stronger compared to yesterday. He is on 2 L of oxygen by nasal cannula with a pulse ox of 99%. Afebrile. Hemodynamically stable. White cell count is at 25 which remains elevated and I think this is partly related to steroids. I am going to discontinue the IV Solu-Medrol and the patient will be started on oral prednisone. White cell count is stable at 8.9. This is stable compared to yesterday. Nevertheless, the patient experienced a significant drop in the hemoglobin since his previous admissions. No evidence of any GI bleeding at this point in time. PEG tube site is clean and the patient is having enteral feeding for nutritional support. No reported aspiration at this point in time. Microbiology from the blood cultures showing gram-positive cocci in clusters and this is consistent with coagulase-negative staph. BUN is at 26 with a creatinine of 0.7 and a sodium levels at 132 with a potassium level of 5.2.This patient did not show any signs of any GI bleeding. He did encounter a brief episode of hypotension 48 hours ago and this recovered with IV fluids and he has been normotensive since. He is feeling fine. Hemoglobin is being monitored. On today's evaluation of 01/05/2024, no new complaints. The patient was encouraged improving and the patient's white count down to 16.7, it was at 7.9, and a platelet count is at 275. He is afebrile. Currently on 3 Suboxone by nasal cannula with a pulse ox of 99%. Continues to receive enteral feeding for nutritional support. Clearance was given to swallow his Ofev tablets regarding his IPF. Is currently on prednisone burst taper starting with 40 mg. Remains on DuoNeb updrafts. Rest of the medication remains unchanged. No altered mentation for now. The patient has developed some acute drop in hemoglobin down to 7.9. The hemoglobin has been steadily dropping since admission. No signs of any acute bleeding. Medical team is aware of the drop in hemoglobin this is being monitored very closely. Objective - Vital Signs Vital signs: Vital Signs Temp 98.7 F 01/05/24 06:56 Pulse 92 01/05/24 10:25 Resp 20 01/05/24 10:25 BP 99/53 01/05/24 10:22 Pulse Ox 96 01/05/24 10:25 FiO2 Intake & Output 01/04/24 01/05/24 01/05/24 18:59 06:59 18:59 Output Total 450 200 Balance -450 -200 Output: Urine 450 200 Other: Voiding Method Urinal Urinal Urinal - Exam GENERAL EXAM: Alert, 63-year-old white male, pleasant, cachectic, comfortable in no apparent distress. Requires assistance to sit up in bed. The patient is currently on 3 L of oxygen nasal cannula HEAD: Normocephalic and atraumatic EYES: Normal reaction of pupils, equal size. NOSE: Clear with pink turbinates. THROAT: No erythema or exudates. NECK: No masses, no JVD. CHEST: No chest wall deformity. LUNGS: Equal air entry with inspiratory bibasilar Velcro crackles. . No conv ersational dyspnea or accessory muscle use while at rest. CVS: S1 and S2 normal with no audible murmur, regular rhythm. No extra heart sounds ABDOMEN: No hepatosplenomegaly, active bowel sounds, no guarding or rigidity. PEG tube site clean, dry, without any drainage. SPINE: No scoliosis or deformity SKIN: No rashes CENTRAL NERVOUS SYSTEM: No focal deficits, tone is normal in all 4 extremities. EXTREMITIES: There is no peripheral edema, clubbing, or cyanosis. Peripheral pulses are intact. - Labs CBC & Chem 7: 01/05/24 05:29 01/05/24 05:29 Labs: Abnormal Lab Results - Last 24 Hours (Table) 01/04/24 01/04/24 01/04/24 Range/Units 12:02 15:50 15:50 WBC (3.8-10.6) k/uL RBC (4.30-5.90) m/uL Hgb (13.0-17.5) gm/dL Hct (39.0-53.0) % MCV (80.0-100.0) fL Neutrophils # (1.3-7.7) k/uL Retic Count 3.0 H (0.5-2.0) % Haptoglobin (31.2-198.0) mg/dL Sodium 130 L (137-145) mmol/L Potassium 5.4 H (3.5-5.1) mmol/L Chloride 92 L (98-107) mmol/L Carbon Dioxide 34 H (22-30) mmol/L BUN 26 H (9-20) mg/dL Glucose 119 H (74-99) mg/dL POC Glucose (mg/dL) 122 H (70-110) mg/dL Ferritin (22.0-322.0) ng/mL Lactate Dehydrogenase (120-246) U/L 01/04/24 01/04/24 01/04/24 Range/Units 15:50 15:50 18:09 WBC (3.8-10.6) k/uL RBC (4.30-5.90) m/uL Hgb (13.0-17.5) gm/dL Hct (39.0-53.0) % MCV (80.0-100.0) fL Neutrophils # (1.3-7.7) k/uL Retic Count (0.5-2.0) % Haptoglobin 245.0 H (31.2-198.0) mg/dL Sodium (137-145) mmol/L Potassium (3.5-5.1) mmol/L Chloride (98-107) mmol/L Carbon Dioxide (22-30) mmol/L BUN (9-20) mg/dL Glucose (74-99) mg/dL POC Glucose (mg/dL) 156 H (70-110) mg/dL Ferritin 707.0 H (22.0-322.0) ng/mL Lactate Dehydrogenase 343 H (120-246) U/L 01/05/24 01/05/24 01/05/24 Range/Units 05:28 05:29 05:29 WBC 16.7 H (3.8-10.6) k/uL RBC 2.34 L (4.30-5.90) m/uL Hgb 7.9 L (13.0-17.5) gm/dL Hct 24.6 L (39.0-53.0) % MCV 105.1 H (80.0-100.0) fL Neutrophils # 13.5 H (1.3-7.7) k/uL Retic Count (0.5-2.0) % Haptoglobin (31.2-198.0) mg/dL Sodium 130 L (137-145) mmol/L Potassium (3.5-5.1) mmol/L Chloride 91 L (98-107) mmol/L Carbon Dioxide 37 H (22-30) mmol/L BUN 24 H (9-20) mg/dL Glucose 100 H (74-99) mg/dL POC Glucose (mg/dL) 113 H (70-110) mg/dL Ferritin (22.0-322.0) ng/mL Lactate Dehydrogenase (120-246) U/L Microbiology - Last 24 Hours (Table) 01/04/24 09:13 Gram Stain - Preliminary Sputum 01/03/24 16:55 Blood Culture - Preliminary Blood 01/03/24 15:00 Blood Culture - Preliminary Blood 01/01/24 14:47 Blood Culture Gram Stain - Preliminary Blood Blood Culture - Preliminary Coagulase Negative Staph Molecular ID Assessment and Plan Plan: Acute on chronic hypoxemic respiratory failure, follow-up chest x-ray shows improvement in the patient's previous superimposed lung consolidations. There are chronic lung changes with low lung volumes and mild bibasilar atelectasis versus scarring. The patient's oxygenation is stable and the patient is currently on 3 L O2 nasal cannula. Suspect chemical pneumonitis. Procalcitonin level is nonelevated. Clinically stable. Monitor for worsening shortness of breath. White cell count is also improving. Recent hospital admission for suspected aspiration pneumonia, patient continues on Zosyn. Micro negative from recent admission. Acute leukocytosis, improving and the white cell count is down to 16 Acute drop in hemoglobin. No evidence of any GI bleeding. Hemoglobin is down to 7.9 Interstitial pulmonary fibrosis, previously maintained on Ofev, unable to take the medication as the medication is not crushable through the PEG tube. Chronic hypoxemic respiratory failure, secondary to above, normally maintained on 3 L/min nasal cannula Chronic hypercapnic respiratory failure Severe generalized weakness and deconditioning Severe protein calorie malnutrition Dysphagia, status post PEG tube insertion on 12/26/2023, has been giving himself bolus feeds at home. History of alcoholism Osteoarthritis Chronic back pain Plan: Monitor the hemoglobin as the patient has developed steady drop in hemoglobin down to 7.9. The medical team is aware of the drop in hemoglobin. No evidence of any external GI bleeding. Aspiration precautions Continue supplemental oxygen Continue empiric antibiotic coverage with IV Zosyn Continue prednisone 40 mg p.o. daily. Should be able to take IPF medication, Ofev orally. The patient was started on Jevity which is running at 47 cc an hour. Monitor the hemoglobin Monitor the white cell count Overall prognosis is guarded related to above-mentioned comorbidities.
[2024-01-05 16:51] LABS: Glucose,Whole Blood 187 mg/dL (70-110)
[2024-01-05 21:00] LABS: Glucose,Whole Blood 144 mg/dL (70-110)
[2024-01-06 05:49] LABS: Glucose,Whole Blood 125 mg/dL (70-110)
[2024-01-06 06:33] LABS: Basophils % (A) 0 %; Eosinophils # (A) 0.1 k/uL (0-0.7); Eosinophils % (A) 1 %; HCT 23.6 % (39.0-53.0); HGB 7.5 gm/dL (13.0-17.5); Lymphocytes # (A) 1.6 k/uL (1.0-4.8); Lymphocytes % (A) 12 %; MCH 33.6 pg (25.0-35.0); MCHC 31.9 g/dL (31.0-37.0); MCV 105.4 fL (80.0-100.0); Macrocytosis Moderate; Mean Platelet Volume 8.6; Monocytes # (A) 0.7 k/uL (0-1.0); Monocytes % (A) 5 %; Neutrophils # (A) 11.1 k/uL (1.3-7.7); Neutrophils % (A) 81 %; Platelet Count 300 k/uL (150-450); RBC 2.24 m/uL (4.30-5.90); RDW 14.8 % (11.5-15.5); WBC 13.6 k/uL (3.8-10.6)
[2024-01-06 06:43] LABS: African American GFR (CKD) >90 (>60 ml/min/1.73 sqM); Anion Gap 2 mmol/L; Blood Urea Nitrogen 21 mg/dL (9-20); Calcium 8.7 mg/dL (8.4-10.2); Carbon Dioxide 35 mmol/L (22-30); Chloride 92 mmol/L (98-107); Glucose 113 mg/dL (74-99); Non-African American GFR(CKD) >90 (>60 ml/min/1.73 sqM); Potassium 4.8 mmol/L (3.5-5.1); Sodium 129 mmol/L (137-145)
[2024-01-06 06:48] LABS: Glucose,Whole Blood 137 mg/dL (70-110)
--- NOTE | 2024-01-06 08:29 | P.PN ---
Subjective Progress Note Date: 01/05/24 Principal diagnosis: Reason for follow-up is positive blood culture and leukocytosis Patient is a 63-year-old male with a past medical history significant for pulmonary fibrosis EtOH abuse DTs, recently prolonged stay for aspiration pneumonia and cardiac PEG tube presenting back to the hospital with worsening shortness of breath did have a positive blood culture prompting this consultation. On today's visit that is 01/05/2024, the patient continues to be afebrile, the patient is on 3 L current oxygen and breathing comfortably, the Pt denies having any chest pain or worsening cough, the patient denies having any abdominal pain no vomiting or any diarrhea, tolerating his tube feeds. Patient white count is down to 16.7, creatinine 0.67 blood culture repeat has b een negative so far sputum cultures pending Objective - Vital Signs Vital signs: Vital Signs Temp 98.7 F 01/05/24 06:56 Pulse 92 01/05/24 10:25 Resp 20 01/05/24 10:25 BP 99/53 01/05/24 10:22 Pulse Ox 96 01/05/24 10:25 FiO2 Intake & Output 01/04/24 01/05/24 01/05/24 18:59 06:59 18:59 Output Total 450 200 Balance -450 -200 Weight 48.988 kg Output: Urine 450 200 Other: Voiding Method Urinal Urinal Urinal - Exam GENERAL DESCRIPTION: Middle-age male up in bed in no distress RESPIRATORY SYSTEM: Unlabored breathing , decreased breath sounds at bases HEART: S1 S2 regular rate and rhythm , ABDOMEN: Soft , no tenderness EXTREMITIES: No edema feet - Labs CBC & Chem 7: 01/06/24 06:18 01/06/24 06:18 Labs: Abnormal Lab Results - Last 24 Hours (Table) 01/04/24 01/04/24 01/04/24 Range/Units 15:50 15:50 15:50 WBC (3.8-10.6) k/uL RBC (4.30-5.90) m/uL Hgb (13.0-17.5) gm/dL Hct (39.0-53.0) % MCV (80.0-100.0) fL Neutrophils # (1.3-7.7) k/uL Retic Count 3.0 H (0.5-2.0) % Haptoglobin (31.2-198.0) mg/dL Sodium 130 L (137-145) mmol/L Potassium 5.4 H (3.5-5.1) mmol/L Chloride 92 L (98-107) mmol/L Carbon Dioxide 34 H (22-30) mmol/L BUN 26 H (9-20) mg/dL Glucose 119 H (74-99) mg/dL POC Glucose (mg/dL) (70-110) mg/dL Ferritin 707.0 H (22.0-322.0) ng/mL Lactate Dehydrogenase 343 H (120-246) U/L 01/04/24 01/04/24 01/05/24 Range/Units 15:50 18:09 05:28 WBC (3.8-10.6) k/uL RBC (4.30-5.90) m/uL Hgb (13.0-17.5) gm/dL Hct (39.0-53.0) % MCV (80.0-100.0) fL Neutrophils # (1.3-7.7) k/uL Retic Count (0.5-2.0) % Haptoglobin 245.0 H (31.2-198.0) mg/dL Sodium (137-145) mmol/L Potassium (3.5-5.1) mmol/L Chloride (98-107) mmol/L Carbon Dioxide (22-30) mmol/L BUN (9-20) mg/dL Glucose (74-99) mg/dL POC Glucose (mg/dL) 156 H 113 H (70-110) mg/dL Ferritin (22.0-322.0) ng/mL Lactate Dehydrogenase (120-246) U/L 01/05/24 01/05/24 01/05/24 Range/Units 05:29 05:29 11:44 WBC 16.7 H (3.8-10.6) k/uL RBC 2.34 L (4.30-5.90) m/uL Hgb 7.9 L (13.0-17.5) gm/dL Hct 24.6 L (39.0-53.0) % MCV 105.1 H (80.0-100.0) fL Neutrophils # 13.5 H (1.3-7.7) k/uL Retic Count (0.5-2.0) % Haptoglobin (31.2-198.0) mg/dL Sodium 130 L (137-145) mmol/L Potassium (3.5-5.1) mmol/L Chloride 91 L (98-107) mmol/L Carbon Dioxide 37 H (22-30) mmol/L BUN 24 H (9-20) mg/dL Glucose 100 H (74-99) mg/dL POC Glucose (mg/dL) 127 H (70-110) mg/dL Ferritin (22.0-322.0) ng/mL Lactate Dehydrogenase (120-246) U/L Microbiology - Last 24 Hours (Table) 01/04/24 09:13 Gram Stain - Preliminary Sputum 01/03/24 16:55 Blood Culture - Preliminary Blood 01/03/24 15:00 Blood Culture - Preliminary Blood 01/01/24 14:47 Blood Culture Gram Stain - Preliminary Blood Blood Culture - Preliminary Coagulase Negative Staph Molecular ID Assessment and Plan (1) Positive blood culture Current Visit: Yes Status: Acute Code(s): R78.81 - BACTEREMIA SNOMED Code(s): 216073297 (2) Leukocytosis Current Visit: No Status: Acute Code(s): D72.829 - ELEVATED WHITE BLOOD CELL COUNT, UNSPECIFIED SNOMED Code(s): 986311906 Plan: 1patient with a positive blood culture with staph epi will likely significant admission of the patient no clinical disease to go along with it and there is no need for any vancomycin blood culture has been repeated document clearance and so far negative no need for vancomycin 2-patient with admission to hospital worsening shortness of breath possibly related to his underlying pulmonary fibrosis/tracheobronchitis and chest x-ray not showing pneumonia and did have normal procalcitonin 3-leukocytosis more likely steroid related, the patient white count is trending down Dictation was produced using [employer] software. please excuse any grammatical, word or spelling errors. Time with Patient: Less than 30
--- NOTE | 2024-01-06 11:30 | P.PN ---
Subjective Progress Note Date: 01/06/24 Hospital Course: 63 year old man with history of pulmonary fibrosis with chronic respiratory fa ilure on 3 and half liters nasal cannula at home, hypertension, previous history of EtOH abuse presented for evaluation of chills, shakes, generalized weakness. In the emergency room, patient was afebrile, 124/88, heart rate 91, 100% on 6 L of nasal cannula. CBC demonstrated leukocytosis to 22.2. Basic metabolic panel showed sodium of 133, potassium 5.2, chloride of 84, CO2 of 39. Liver function test showed AST of 60, ALT of 170, alkaline phosphatase of 170, total bilirubin of 0.7. Troponin was 0.015, BNP was 527. ABG demonstrated pH of 7.47, pCO2 of 57, pO2 of 212. EKG showed sinus rhythm with peaked P waves. Chest x-ray appears to have chronic interstitial fibrotic changes bilaterally, worse on the right, and appears similar to prior. Procalcitonin negative. Leukocytosis is persistent. Microbiology showed blood cultures positive for GPC in clusters, staph epi. IV Zosyn discontinued. Repeat blood cultures negative. Patient persistently anemic, likely from hypoproliferation. However continues to go down and patient has symptoms secondary to anemia. Will consult hematology. Subjective: Patient seen and examined at bedside. No acute events overnight. Shortness of breath is slightly worse. Having difficulty getting out of the bed. No bleeding. Pertinent positives and negatives as discussed above, a complete review of systems was performed and all other systems are negative. Vitals Signs Reviewed. General: Nontoxic, no distress, appears at stated age, thin appearing Derm: Warm, dry, PEG tube site clean, dry, intact Head: Atraumatic, normocephalic, symmetric Eyes: EOMI, no lid lag, anicteric sclera Mouth: No lip lesion, mucus membranes moist Cardiovascular: S1S2 reg, no murmur Lungs: Fine rales, no accessory muscle use, supplemental oxygen Abdominal: Soft, nontender to palpation, no guarding, no appreciable organomegaly Ext: No gross muscle atrophy, no edema, no contractures Neuro: CN II-XI grossly intact, no focal neuro deficits Psych: Alert, oriented, appropriate affect Data Reviewed Today: Pertinent Labs: WBC 13.6, hemoglobin 7.5, sodium 129, creatinine 0.67, blood sugars range between 1 13-1 37 Imaging: No new imaging Assessment and Plan: Active: Acute macrocytic anemia, likely bone marrow suppression - No active bleeding - Calculated absolute reticulocyte count less than 2, consistent with hypoproliferative phenomena -Hemoglobin continues to drop, hematology consulted - B12 level within normal limits in the past, already on folic acid, TSH within normal limits - Repeat CBC tomorrow Staph epi bacteremia, contaminant Leukocytosis, possibly steroid-induced, improving Recurrent aspiration, PEG dependent Severe protein calorie malnutrition Mild hyponatremia Chronic back pain Hyperkalemia -Pulmonology following, patient on DuoNebs every 2 hours as needed, and scheduled 4 times daily, prednisone 40 daily -Antibiotics discontinued -ID following - Continue tube feeds, dietitian following - On morphine 15 mg every 6 however, monitor for sedation Chronic: Chronic respiratory failure Interstitial pulmonary fibrosis Anxiety Depression Hypertension DVT ppx: Lovenox Code status: Full code Anticipated discharge place: Pending clinical course Anticipated discharge time: Pending clinical course Objective - Vital Signs Vital signs: Vital Signs Temp 98.1 F 01/06/24 07:24 Pulse 79 01/06/24 07:24 Resp 18 01/06/24 07:24 BP 119/74 01/06/24 07:24 Pulse Ox 93 L 01/06/24 08:45 FiO2 Intake & Output 01/05/24 01/06/24 01/06/24 18:59 06:59 18:59 Intake Total 10 Output Total 200 450 Balance -190 -450 Weight 50.802 kg Intake: IV 10 Invasive Line 5 10 Output: Urine 200 450 Other: Voiding Method Urinal Urinal - Labs CBC & Chem 7: 01/06/24 06:18 01/06/24 06:18 Labs: Abnormal Lab Results - Last 24 Hours (Table) 01/05/24 01/05/24 01/05/24 Range/Units 11:44 16:50 20:58 WBC (3.8-10.6) k/uL RBC (4.30-5.90) m/uL Hgb (13.0-17.5) gm/dL Hct (39.0-53.0) % MCV (80.0-100.0) fL Neutrophils # (1.3-7.7) k/uL Sodium (137-145) mmol/L Chloride (98-107) mmol/L Carbon Dioxide (22-30) mmol/L BUN (9-20) mg/dL Glucose (74-99) mg/dL POC Glucose (mg/dL) 127 H 187 H 144 H (70-110) mg/dL 01/06/24 01/06/24 01/06/24 Range/Units 05:48 06:18 06:18 WBC 13.6 H (3.8-10.6) k/uL RBC 2.24 L (4.30-5.90) m/uL Hgb 7.5 L (13.0-17.5) gm/dL Hct 23.6 L (39.0-53.0) % MCV 105.4 H (80.0-100.0) fL Neutrophils # 11.1 H (1.3-7.7) k/uL Sodium 129 L (137-145) mmol/L Chloride 92 L (98-107) mmol/L Carbon Dioxide 35 H (22-30) mmol/L BUN 21 H (9-20) mg/dL Glucose 113 H (74-99) mg/dL POC Glucose (mg/dL) 125 H (70-110) mg/dL 01/06/24 Range/Units 06:46 WBC (3.8-10.6) k/uL RBC (4.30-5.90) m/uL Hgb (13.0-17.5) gm/dL Hct (39.0-53.0) % MCV (80.0-100.0) fL Neutrophils # (1.3-7.7) k/uL Sodium (137-145) mmol/L Chloride (98-107) mmol/L Carbon Dioxide (22-30) mmol/L BUN (9-20) mg/dL Glucose (74-99) mg/dL POC Glucose (mg/dL) 137 H (70-110) mg/dL Microbiology - Last 24 Hours (Table) 01/01/24 14:47 Blood Culture Gram Stain - Final Blood Blood Culture - Final Staphylococcus epidermidis Molecular ID 01/04/24 09:13 Gram Stain - Final Sputum Sputum Culture - Final April albicans 01/03/24 16:55 Blood Culture - Preliminary Blood 01/03/24 15:00 Blood Culture - Preliminary Blood
[2024-01-06 11:41] LABS: Glucose,Whole Blood 124 mg/dL (70-110)
--- NOTE | 2024-01-06 15:26 | P.PN ---
Subjective Progress Note Date: 01/06/24 Principal diagnosis: Reason for follow-up is positive blood culture and leukocytosis Patient is a 63-year-old male with a past medical history significant for pulmonary fibrosis EtOH abuse DTs, recently prolonged stay for aspiration pneumonia and cardiac PEG tube presenting back to the hospital with worsening shortness of breath did have a positive blood culture prompting this consultation. On today's visit that is 01/06/2024, Patient is afebrile patient is currently on 2 L nasal cannula oxygen and mention breathing more comfortably, the patient denies any chest pain or any worsening cough, the patient denies any nausea vomiting did not have any abdominal pain and no diarrhea. Patient white count is down to 13.6, creatinine 0.67 blood culture repeat negative sputum is April Objective - Vital Signs Vital signs: Vital Signs Temp 98.2 F 01/06/24 14:02 Pulse 81 01/06/24 14:02 Resp 18 01/06/24 14:02 BP 113/79 01/06/24 14:02 Pulse Ox 100 01/06/24 14:02 FiO2 Intake & Output 01/05/24 01/06/24 01/06/24 18:59 06:59 18:59 Intake Total 10 Output Total 200 450 Balance -190 -450 Weight 50.802 kg Intake: IV 10 Invasive Line 5 10 Output: Urine 200 450 Other: Voiding Method Urinal Urinal - Exam GENERAL DESCRIPTION: Middle-age male up in bed in no distress RESPIRATORY SYSTEM: Unlabored breathing , decreased breath sounds at bases HEART: S1 S2 regular rate and rhythm , ABDOMEN: Soft , no tenderness EXTREMITIES: No edema feet - Labs CBC & Chem 7: 01/06/24 06:18 01/06/24 06:18 Labs: Abnormal Lab Results - Last 24 Hours (Table) 01/05/24 01/05/24 01/06/24 Range/Units 16:50 20:58 05:48 WBC (3.8-10.6) k/uL RBC (4.30-5.90) m/uL Hgb (13.0-17.5) gm/dL Hct (39.0-53.0) % MCV (80.0-100.0) fL Neutrophils # (1.3-7.7) k/uL Sodium (137-145) mmol/L Chloride (98-107) mmol/L Carbon Dioxide (22-30) mmol/L BUN (9-20) mg/dL Glucose (74-99) mg/dL POC Glucose (mg/dL) 187 H 144 H 125 H (70-110) mg/dL 01/06/24 01/06/24 01/06/24 Range/Units 06:18 06:18 06:46 WBC 13.6 H (3.8-10.6) k/uL RBC 2.24 L (4.30-5.90) m/uL Hgb 7.5 L (13.0-17.5) gm/dL Hct 23.6 L (39.0-53.0) % MCV 105.4 H (80.0-100.0) fL Neutrophils # 11.1 H (1.3-7.7) k/uL Sodium 129 L (137-145) mmol/L Chloride 92 L (98-107) mmol/L Carbon Dioxide 35 H (22-30) mmol/L BUN 21 H (9-20) mg/dL Glucose 113 H (74-99) mg/dL POC Glucose (mg/dL) 137 H (70-110) mg/dL 01/06/24 Range/Units 11:40 WBC (3.8-10.6) k/uL RBC (4.30-5.90) m/uL Hgb (13.0-17.5) gm/dL Hct (39.0-53.0) % MCV (80.0-100.0) fL Neutrophils # (1.3-7.7) k/uL Sodium (137-145) mmol/L Chloride (98-107) mmol/L Carbon Dioxide (22-30) mmol/L BUN (9-20) mg/dL Glucose (74-99) mg/dL POC Glucose (mg/dL) 124 H (70-110) mg/dL Microbiology - Last 24 Hours (Table) 01/01/24 14:47 Blood Culture Gram Stain - Final Blood Blood Culture - Final Staphylococcus epidermidis Molecular ID 01/04/24 09:13 Gram Stain - Final Sputum Sputum Culture - Final April albicans 01/03/24 16:55 Blood Culture - Preliminary Blood 01/03/24 15:00 Blood Culture - Preliminary Blood Assessment and Plan (1) Positive blood culture Current Visit: Yes Status: Acute Code(s): R78.81 - BACTEREMIA SNOMED Code(s): 586287325 (2) Leukocytosis Current Visit: No Status: Acute Code(s): D72.829 - ELEVATED WHITE BLOOD CELL COUNT, UNSPECIFIED SNOMED Code(s): 888742231 Plan: 1patient with a positive blood culture with staph epi will likely significant admission of the patient no clinical disease to go along with it and there is no need for any vancomycin blood culture has been repeated document clearance and so far negative no need for vancomycin 2-patient with admission to hospital worsening shortness of breath possibly related to his underlying pulmonary fibrosis/tracheobronchitis, sputum has been April albicans 3-leukocytosis more likely steroid related, the patient white count is trending down, and will monitor closely Dictation was produced using [employer] dictation software. please excuse any grammatical, word or spelling errors. Time with Patient: Less than 30
--- NOTE | 2024-01-06 15:37 | P.PN ---
Subjective Progress Note Date: 01/06/24 Patient is a 63-year-old white male with past medical history significant for advanced pulmonary fibrosis and restrictive lung disease treated with Ofev, previous ventilator dependent respiratory failure, alcoholism. Patient did have a recent prolonged and complicated hospitalization 12/16/2023 through 12/28/2023. He was treated for aspiration pneumonia. He did undergo a swallow evaluation showed aspiration with various consistencies. He did have a a PEG tube placed 12/26/2023. Patient returned to the emergency room yesterday afternoon complaining of severe weakness. He has no other specific complaints. He denies any change in his chronic shortness of breath. He does have a chronic cough. Currently, he is producing some clear sputum. No fevers. No chest pain. A follow-up chest x-ray showed chronic lung changes with low lung volumes and mild bibasilar atelectasis. Improvement in the patient's previous consolidative lung infiltrates. There is abnormal gas pattern suggestive of po ssible obstruction or severe ileus. This was followed up with an abdominal and pelvis CT which showed a likely nonobstructive bowel gas pattern. Patient is currently lying in bed on 4 L/min nasal cannula, in no acute distress. He actually has no specific complaints other than generalized and severe weakness. He has had to use a wheelchair to get around. His daughter and son-in-law have moved in to help him. He has been using his PEG tube for bolus feeding. Denies nausea, vomiting, abdominal pain. He has had loose bowel movements. He has not been able to take his Ofev, he states that lens examiner does not recommend crushing and putting through PEG tube. An ABG was done in the emergency room, which showed a component of compensated chronic hypercapnic respiratory failure. CBC on arrival: WBC count 22, hemoglobin 16.3, hematocrit 50.3, platelets 395. CMP on arrival: Sodium 133, potassium 5.2, chloride 84, serum bicarb 39, BUN 30, creatinine 0.69, glucose 157. Lactic acid level 2.7 down to 1.7. LFTs mildly elevated. Troponin 0.015. NT proBNP 527. In the emergency room, the patient was continued on Zosyn. Currently afebrile. Hemodynamically stable. The patient was seen today and the patient is currently on 40s of oxygen by nasal cannula. He continues to have some cough and congestion.The patient blood work shows leukocytosis with a white cell count of 25 which is slightly higher compared to yesterday with a hemoglobin of 13.5 which is lower compared to yesterday. Platelet counts are stable at 313. The patient is having normal renal function with a BUN of 22 and a creatinine of 0.6 and sodium levels at 132. Procalcitonin level came back at 0.08. The scleroderma antibodies are negative. RUBY was also negative. I reviewed the CAT scan of the abdomen and p carlos and the CAT scan shows chronic scarring and bronchiectatic change in lung bases. Prominent pulmonary arteries consistent with pulm hypertension. Rest of the intra-abdominal structures were essentially within normal limits and the PEG tube is in a good location. There are some nonspecific bowel gas pattern without any evidence of any obstruction or small bowel dilatation. As for the chest x-ray that was done at time of admission, it shows a smaller lung volumes, some atelectatic changes and chronic scarring lung base bilaterally consistent with with his underlying pulmonary fibrosis. Aspiration was suspected and the patient remains on IV Zosyn. Patient is also on DuoNeb nebulized treatments [id number]. The patient is on IV Solu-Medrol 60 mg every 6 hours. Rest of the home medication have been resumed. The patient on Lovenox for DVT prophylaxis. On 01/03/2024, the patient is being seen for a follow-up. The patient is feeling better on today's evaluation. The patient is down to 2 L of oxygen by nasal cannula which is his baseline oxygen requirements. Denies having any chest pain. No other significant events overnight. The white cell count remains elevated at 25.5 with a hemoglobin 8.6 and a platelet count of 314. BUN is at 31 with a creatinine of 0.7 and sodium levels at 132. Procalcitonin level was low at 0.08. The patient remains on DuoNeb updrafts. The patient remains on IV Solu-Medrol 60 mg every 6 hours. The patient remains on IV Zosyn which is essentially empiric antibiotic coverage. Blood cultures are negative thus far. The patient was also started on enteral feeding for nutritional support and the patient is currently on Jevity 1.2 at the rate of 42 cc an hour. Overnight, the patient is in a episode of hypotension with a systolic blood pressure in the low 70s. The patient was given a liter bolus and currently is normotensive. Denies having any chest pain. No altered mentation. No chest pain. No other significant events otherwise. On today's evaluation of 01/04/2024, the patient is doing well. No specific complaints. Feeling better and stronger compared to yesterday. He is on 2 L of oxygen by nasal cannula with a pulse ox of 99%. Afebrile. Hemodynamically stable. White cell count is at 25 which remains elevated and I think this is partly related to steroids. I am going to discontinue the IV Solu-Medrol and the patient will be started on oral prednisone. White cell count is stable at 8.9. This is stable compared to yesterday. Nevertheless, the patient experienced a significant drop in the hemoglobin since his previous admissions. No evidence of any GI bleeding at this point in time. PEG tube site is clean and the patient is having enteral feeding for nutritional support. No reported aspiration at this point in time. Microbiology from the blood cultures showing gram-positive cocci in clusters and this is consistent with coagulase-negative staph. BUN is at 26 with a creatinine of 0.7 and a sodium levels at 132 with a potassium level of 5.2.This patient did not show any signs of any GI bleeding. He did encounter a brief episode of hypotension 48 hours ago and this recovered with IV fluids and he has been normotensive since. He is feeling fine. Hemoglobin is being monitored. On today's evaluation of 01/05/2024, no new complaints. The patient was encouraged improving and the patient's white count down to 16.7, it was at 7.9, and a platelet count is at 275. He is afebrile. Currently on 3 Suboxone by nasal cannula with a pulse ox of 99%. Continues to receive enteral feeding for nutritional support. Clearance was given to swallow his Ofev tablets regarding his IPF. Is currently on prednisone burst taper starting with 40 mg. Remains on DuoNeb updrafts. Rest of the medication remains unchanged. No altered mentation for now. The patient has developed some acute drop in hemoglobin down to 7.9. The hemoglobin has been steadily dropping since admission. No signs of any acute bleeding. Medical team is aware of the drop in hemoglobin this is being monitored very closely. On today's evaluation of 01/06/2024, the patient is being seen for a follow-up. No significant change in his respiratory status. The patient's hemoglobin is still downtrending is currently down to 7.5. Hematology oncology is on the case. The white cell count at 13.6. Platelet count 300. Sodium is at 129 with a BUN of 21 and creatinine of 0.6. The patient does have a sputum sample is positive for April and the blood cultures positive for Staph epidermidis. The patient has advanced pulmonary fibrosis. The patient also has chronic dysphagia utilizing PEG tube feeding for enteral feeding and nutritional support. Hematology oncology is evaluating this patient regarding the ongoing anemia. No evidence of any acute bleeding. His reticulocyte count has been low. Vitamin B12 has been normal and the patient is on folic acid supplements. Hemoglobin is being monitored. Objective - Vital Signs Vital signs: Vital Signs Temp 98.1 F 01/06/24 07:24 Pulse 79 01/06/24 07:24 Resp 18 01/06/24 07:24 BP 119/74 01/06/24 07:24 Pulse Ox 93 L 01/06/24 08:45 FiO2 Intake & Output 01/05/24 01/06/24 01/06/24 18:59 06:59 18:59 Intake Total 10 Output Total 200 450 Balance -190 -450 Weight 50.802 kg Intake: IV 10 Invasive Line 5 10 Output: Urine 200 450 Other: Voiding Method Urinal Urinal - Exam GENERAL EXAM: Alert, 63-year-old white male, pleasant, cachectic, comfortable in no apparent distress. Requires assistance to sit up in bed. The patient is currently on 3 L of oxygen nasal cannula HEAD: Normocephalic and atraumatic EYES: Normal reaction of pupils, equal size. NOSE: Clear with pink turbinates. THROAT: No erythema or exudates. NECK: No masses, no JVD. CHEST: No chest wall deformity. LUNGS: Equal air entry with inspiratory bibasilar Velcro crackles. . No conversational dyspnea or accessory muscle use while at rest. CVS: S1 and S2 normal with no audible murmur, regular rhythm. No extra heart sounds ABDOMEN: No hepatosplenomegaly, active bowel sounds, no guarding or rigidity. PEG tube site clean, dry, without any drainage. SPINE: No scoliosis or deformity SKIN: No rashes CENTRAL NERVOUS SYSTEM: No focal deficits, tone is normal in all 4 extremities. EXTREMITIES: There is no peripheral edema, clubbing, or cyanosis. Peripheral pulses are intact. - Labs CBC & Chem 7: 01/06/24 06:18 01/06/24 06:18 Labs: Abnormal Lab Results - Last 24 Hours (Table) 01/05/24 01/05/24 01/06/24 Range/Units 16:50 20:58 05:48 WBC (3.8-10.6) k/uL RBC (4.30-5.90) m/uL Hgb (13.0-17.5) gm/dL Hct (39.0-53.0) % MCV (80.0-100.0) fL Neutrophils # (1.3-7.7) k/uL Sodium (137-145) mmol/L Chloride (98-107) mmol/L Carbon Dioxide (22-30) mmol/L BUN (9-20) mg/dL Glucose (74-99) mg/dL POC Glucose (mg/dL) 187 H 144 H 125 H (70-110) mg/dL 01/06/24 01/06/24 01/06/24 Range/Units 06:18 06:18 06:46 WBC 13.6 H (3.8-10.6) k/uL RBC 2.24 L (4.30-5.90) m/uL Hgb 7.5 L (13.0-17.5) gm/dL Hct 23.6 L (39.0-53.0) % MCV 105.4 H (80.0-100.0) fL Neutrophils # 11.1 H (1.3-7.7) k/uL Sodium 129 L (137-145) mmol/L Chloride 92 L (98-107) mmol/L Carbon Dioxide 35 H (22-30) mmol/L BUN 21 H (9-20) mg/dL Glucose 113 H (74-99) mg/dL POC Glucose (mg/dL) 137 H (70-110) mg/dL 01/06/24 Range/Units 11:40 WBC (3.8-10.6) k/uL RBC (4.30-5.90) m/uL Hgb (13.0-17.5) gm/dL Hct (39.0-53.0) % MCV (80.0-100.0) fL Neutrophils # (1.3-7.7) k/uL Sodium (137-145) mmol/L Chloride (98-107) mmol/L Carbon Dioxide (22-30) mmol/L BUN (9-20) mg/dL Glucose (74-99) mg/dL POC Glucose (mg/dL) 124 H (70-110) mg/dL Microbiology - Last 24 Hours (Table) 01/01/24 14:47 Blood Culture Gram Stain - Final Blood Blood Culture - Final Staphylococcus epidermidis Molecular ID 01/04/24 09:13 Gram Stain - Final Sputum Sputum Culture - Final April albicans 01/03/24 16:55 Blood Culture - Preliminary Blood 01/03/24 15:00 Blood Culture - Preliminary Blood Assessment and Plan Plan: Acute on chronic hypoxemic respiratory failure, follow-up chest x-ray shows improvement in the patient's previous superimposed lung consolidations. There are chronic lung changes with low lung volumes and mild bibasilar atelectasis versus scarring. The patient's oxygenation is stable and the patient is currently on 3 L O2 nasal cannula. Suspect chemical pneumonitis. Procalcitonin level is nonelevated. Clinically stable. Monitor for worsening shortness of breath. White cell count is also improving. The white cell count is currently down to 13 Recent hospital admission for suspected aspiration pneumonia, patient continues on Zosyn. Micro negative from recent admission. Acute leukocytosis, improving and the white cell count is down to 16 Acute drop in hemoglobin. No evidence of any GI bleeding. Hemoglobin is down to 7.9 Interstitial pulmonary fibrosis, previously maintained on Ofev, unable to take the medication as the medication is not crushable through the PEG tube. Chronic hypoxemic respiratory failure, secondary to above, normally maintained on 3 L/min nasal cannula Chronic hypercapnic respiratory failure Severe generalized weakness and deconditioning Severe protein calorie malnutrition Dysphagia, status post PEG tube insertion on 12/26/2023, has been giving himself bolus feeds at home. History of alcoholism Osteoarthritis Chronic back pain Plan: Overall respiratory status is stable and the patient remains on 3 L of O2 nasal cannula Monitor the hemoglobin as the patient has developed steady drop in hemoglobin down to 7. 5. No evidence of an acute GI bleeding at this point in time. [facility] oncology is on the case. Aspiration precautions Continue supplemental oxygen Continue empiric antibiotic coverage with IV Zosyn Continue prednisone 40 mg p.o. daily. Should be able to take IPF medication, Ofev orally. The patient was started on Jevity which is running at 47 cc an hour. Monitor the hemoglobin Monitor the white cell count Overall prognosis is guarded related to above-mentioned comorbidities.
--- NOTE | 2024-01-06 15:48 | P.GSCN ---
History of Present Illness Consult date: 01/06/24 History of present illness: CHIEF COMPLAINT: Shortness of breath Reason for consult anemia HISTORY OF PRESENT ILLNESS: This is a 63-year-old male who presented with wors ening shortness of breath. He is being treated for an acute on chronic hypoxic respiratory failure. He has known history of interstitial pulmonary fibrosis. He has had issues with recurrent aspiration pneumonia and had PEG tube placement on December 26, 2023. Patient tolerating tube feeds. Patient's hemoglobin on admission 16.3 has trended down to 7.5. He is followed by hematology. They have requested a surgical consult for patient's anemia with significant drop in hemoglobin and concern for possible GI bleed. Patient denies any blood in his stools. Denies any black stools. Denies any nausea or vomiting. Denies any abdominal pain. He has never had a colonoscopy or EGD. He did have a Cologuard test 6 months ago which was negative. Patient denies being on any blood thinners. PAST MEDICAL HISTORY: See list. PAST SURGICAL HISTORY: See list. MEDICATIONS: See list. ALLERGIES: See list. SOCIAL HISTORY: No illicit drug use. REVIEW OF SYSTEMS: CONSTITUTIONAL: Denies fever or chills. HEENT: Denies blurred vision, vision changes, or eye pain. Denies hemoptysis ENDOCRINE: Denies heat or cold intolerance. CARDIOVASCULAR: Denies chest pain or pressure. RESPIRATORY: No shortness of breath. GASTROINTESTINAL: Please refer to HPI otherwise unremarkable NEURO: Denies history of seizures. PSYCH: No depression or suicidal ideation HEMATOLOGIC: Denies bleeding disorders. LYMPHATIC: The patient denies any lumps and bumps around the neck. GENITOURINARY: Denies any blood in urine or increased urinary frequency. MUSCULOSKELETAL: Denies myalgias. Denies joint swelling. Denies decreased range of motion beyond patients baseline. SKIN: Denies pruitis. Denies rash. PHYSICAL EXAM: VITAL SIGNS: Reviewed GENERAL: Well-developed in no acute distress. HEENT: No sclera icterus. Extraocular movements grossly intact. Moist buccal mucosa. Head is atraumatic, normocephalic. Hears conversational speech. No nasal drainage. NECK: Supple without lymphadenopathy. CHEST: Non-labored respirations and equal bilateral excursions. CARDIOVASCULAR: Palpable 2+ radial pulses. ABDOMEN: Soft. Nondistended. Nontender MUSCULOSKELETAL: No clubbing or cyanosis. NEUROLOGIC: No focal or lateralizing signs. Cranial nerves II through XII grossly intact. PSYCH: Appropriate affect. Alert and oriented to person, place and time. SKIN: Well perfused. Good skin turgor. LABORATORY DATA: WBC 13.6 Hgb 16.3 down to 7.5 MCV 105 platelets 300 Sodium is 129 potassium 4.8 creatinine 0.67 Iron level 86 Folate 17.4 B12 level pending Albumin 3.1 IMAGING: CT scan abdomen overall nonspecific but felt to be nonobstructive bowel gas pattern ASSESSMENT: 1. Macrocytic anemia with significant drop in his hemoglobin on admission. No active bleeding. 2. Recurrent aspiration, PEG tube dependent 3. Severe protein calorie malnutrition 4. Chronic respiratory failure 5. History of interstitial pulmonary fibrosis PLAN: -Patient scheduled for EGD and colonoscopy on January [address] Young -Continue to monitor hemoglobin -Continue to monitor for any signs or symptoms of bleeding Thank you for this consultation Physician Lining Baster note has been reviewed by physician. Signing provider agrees with the documented findings, assessment, and plan of care. Please see additional documentation below CHIEF COMPLAINT: Acute blood loss anemia HISTORY OF PRESENT ILLNESS: The patient is a 63-year-old male with multiple comorbidities including gastrostomy tube status, underweight malnutrition, scoliosis with spinal stenosis, alcohol abuse disorder, pulmonary fibrosis who was admitted for shortness of breath. Admitting hemoglobin was 16.3. Hemoglobin has now declined to 7.5. Per hospital records, no obvious signs of bleeding or GI bleed. Due to significant acute blood loss anemia, general surgery is consulted. PAST MEDICAL HISTORY: See list and reviewed PAST SURGICAL HISTORY: See list and reviewed MEDICATIONS: See list and reviewed ALLERGIES: See list and reviewed SOCIAL HISTORY: See list and reviewed FAMILY HISTORY: See list and reviewed REVIEW OF ORGAN SYSTEMS: Obtained via chart CONSTITUTIONAL: No fevers or chills. Underweight, BMI 16.2 EYES: Denies any trouble with vision. No glasses. HEENT: No difficulties with hearing. No nosebleeds. No difficulty swallowing. RESPIRATORY: Has pulmonary fibrosis. CARDIOVASCULAR: Denies any chest pain, palpitations, or recent heart attacks. GASTROINTESTINAL: History of alcohol abuse disorder with delirium tremens. Has gastrostomy tube placement GENITOURINARY: Denies any blood in urine or increased urinary frequency. NEUROLOGICAL: Denies any numbness or tingling along the distal extremities. No seizure disorders or headaches. MUSCULOSKELETAL: Scoliosis with spinal stenosis. SKIN: No current skin cancer. No rash. PSYCHIATRIC: Has depressive disorder. ENDOCRINE: Denies current thyroid disorders. Denies any blood sugar glucose intolerance. HEME/LYMPHATIC: New anemia. ALLERGY/IMMUNOLOGY: No immunoglobulin therapy. No immune deficiencies. BREAST: Denies current breast lumps, pain or nipple discharge. PHYSICAL EXAM: VITALS: Reviewed CONSTITUTIONAL: Cachectic male in no acute distress. EYES: Conjuctivae without sclera icterus. Extraocular movements grossly intact. HEAD, EARS, NOSE, THROAT: Moist buccal mucosa. Head is atraumatic, normocephalic. Hears conversational speech. No nasal drainage. NECK: Supple. No JV distention. No thyroidomegaly. RESPIRATORY: Non-labored respirations and equal bilateral excursions. No gross wheezes. CARDIOVASCULAR: Palpable 2+ radial pulses. ABDOMEN: Gastrostomy tube intact. LYMPH: No neck lymphadenopathy. MUSCULOSKELETAL: No clubbing cyanosis or edema SKIN: Dry skin. NEUROLOGIC: Deferred, lethargic. PSYCH: Flat affect. CLINCAL LABS: Reviewed. Hemoglobin: 16.3-7.5, anemia. WBC elevated 13.6, leukocytosis IMAGING: Independently reviewed. CT of the abdomen pelvis from 01/02/2024 independently reviewed demonstrates scoliosis of the spine with moderate liquid stool of the ascending colon. No moderate stool identified along the sigmoid colon. No bowel obstruction or free air. This is my independent interpretatio n. RADIOLOGY: Report reviewed. Nonspecific abdomen. RECORDS: previous old records reviewed, feeding tube placement 12/26/2023, uncomplicated. ASSESSMENT: 1. Acute blood loss anemia of uncertain etiology 2. Underweight, BMI 16.2 with malnutrition 3. Gastrostomy tube status 4. Leukocytosis PLAN: 1. With finding of new acute blood loss anemia, will proceed with upper endoscopy. 2. May benefit from colonoscopy for acute blood loss anemia workup. 3. Patient elevated risk due to multiple comorbidities. ADVANCE DIRECTIVE: CODE STATUS in chart. Thank you for this kind consultation. Past Medical History Past Medical History: Musculoskeletal Disorder Additional Past Medical History / Comment(s): ETOH abuse, DTs, chronic low back pain/herniated discs/scoliosis/spinal stenosis, right shoulder, pulmonary fibrosis, Home O2 3L History of Any Multi-Drug Resistant Organisms: None Reported Past Surgical History: Orthopedic Surgery Additional Past Surgical History / Comment(s): R ankle fx with surgical repair- pin in and out, back injections at [facility]. Left knee Past Anesthesia/Blood Transfusion Reactions: No Reported Reaction Additional Past Anesthesia/Blood Transfusion Reaction / Comm: Pt has never received blood. Past Psychological History: Anxiety, Depression Smoking Status: Never smoker Past Alcohol Use History: None Reported Past Drug Use History: None Reported - Past Family History Father Family Medical History: Dementia Additional Family Medical History / Comment(s): Father is . Mother Family Medical History: Cancer Additional Family Medical History / Comment(s): Mother at age 64yrs of pancreatic cancer. Medications and Allergies Home Medications Medication Instructions Recorded Confirmed Type Citalopram Hydrobromide [CeleXA] 40 mg PEG/G-TUBE DAILY 03/25/21 01/01/24 History busPIRone HCL [Buspar] 7.5 mg PEG/G-TUBE BID 10/14/23 01/01/24 History Medihoney 80% Gel 1 applic TOPICAL DAILY 12/17/23 01/01/24 History ALPRAZolam [Xanax] 0.5 mg PEG/G-TUBE TID 01/01/24 01/01/24 History Acetaminophen Oral Susp [Tylenol] 640 mg PEG/G-TUBE Q4-6H PRN 01/01/24 01/01/24 History Folic Acid 1 mg PEG/G-TUBE DAILY 01/01/24 01/01/24 History Losartan [Cozaar] 50 mg PEG/G-TUBE DAILY 01/01/24 01/01/24 History Melatonin 1.5 mg PEG/G-TUBE HS 01/01/24 01/01/24 History Metoprolol Tartrate [Lopressor] 12.5 mg PEG/G-TUBE BID 01/01/24 01/01/24 History Morphine Sulfate 15 mg PEG/G-TUBE Q6H 01/01/24 01/01/24 History Nintedanib Esylate [Ofev] 150 mg PO DIRECTED 01/01/24 01/01/24 History guaiFENesin [guaiFENesin Oral 400 mg PEG/G-TUBE BID 01/01/24 01/01/24 History Solution] predniSONE See Taper PEG/G-TUBE DIRECTED 01/01/24 01/01/24 History Allergies Allergy/AdvReac Type Severity Reaction Status Date / Time No Known Allergies Allergy Verified 01/01/24 17:30 Surgical - Exam Vital Signs Temp Pulse Resp BP Pulse Ox 97.7 F 101 H 26 H 139/80 84 L 01/01/24 14:00 01/01/24 14:00 01/01/24 14:00 01/01/24 14:00 01/01/24 14:00 Results - Labs 01/07/24 06:03 01/07/24 06:03 Abnormal Lab Results - Last 24 Hours (Table) 01/05/24 01/05/24 01/06/24 Range/Units 16:50 20:58 05:48 WBC (3.8-10.6) k/uL RBC (4.30-5.90) m/uL Hgb (13.0-17.5) gm/dL Hct (39.0-53.0) % MCV (80.0-100.0) fL Neutrophils # (1.3-7.7) k/uL Sodium (137-145) mmol/L Chloride (98-107) mmol/L Carbon Dioxide (22-30) mmol/L BUN (9-20) mg/dL Glucose (74-99) mg/dL POC Glucose (mg/dL) 187 H 144 H 125 H (70-110) mg/dL 01/06/24 01/06/24 01/06/24 Range/Units 06:18 06:18 06:46 WBC 13.6 H (3.8-10.6) k/uL RBC 2.24 L (4.30-5.90) m/uL Hgb 7.5 L (13.0-17.5) gm/dL Hct 23.6 L (39.0-53.0) % MCV 105.4 H (80.0-100.0) fL Neutrophils # 11.1 H (1.3-7.7) k/uL Sodium 129 L (137-145) mmol/L Chloride 92 L (98-107) mmol/L Carbon Dioxide 35 H (22-30) mmol/L BUN 21 H (9-20) mg/dL Glucose 113 H (74-99) mg/dL POC Glucose (mg/dL) 137 H (70-110) mg/dL 01/06/24 Range/Units 11:40 WBC (3.8-10.6) k/uL RBC (4.30-5.90) m/uL Hgb (13.0-17.5) gm/dL Hct (39.0-53.0) % MCV (80.0-100.0) fL Neutrophils # (1.3-7.7) k/uL Sodium (137-145) mmol/L Chloride (98-107) mmol/L Carbon Dioxide (22-30) mmol/L BUN (9-20) mg/dL Glucose (74-99) mg/dL POC Glucose (mg/dL) 124 H (70-110) mg/dL Microbiology - Last 24 Hours (Table) 01/01/24 14:47 Blood Culture Gram Stain - Final Blood Blood Culture - Final Staphylococcus epidermidis Molecular ID 01/04/24 09:13 Gram Stain - Final Sputum Sputum Culture - Final April albicans 01/03/24 16:55 Blood Culture - Preliminary Blood 01/03/24 15:00 Blood Culture - Preliminary Blood Diabetes panel 01/06/24 Range/Units 06:18 Sodium 129 L (137-145) mmol/L Potassium 4.8 (3.5-5.1) mmol/L Chloride 92 L (98-107) mmol/L Carbon Dioxide 35 H (22-30) mmol/L BUN 21 H (9-20) mg/dL Creatinine 0.67 (0.66-1.25) mg/dL Glucose 113 H (74-99) mg/dL Calcium 8.7 (8.4-10.2) mg/dL Calcium panel 01/06/24 Range/Units 06:18 Calcium 8.7 (8.4-10.2) mg/dL Pituitary panel 01/06/24 Range/Units 06:18 Sodium 129 L (137-145) mmol/L Potassium 4.8 (3.5-5.1) mmol/L Chloride 92 L (98-107) mmol/L Carbon Dioxide 35 H (22-30) mmol/L BUN 21 H (9-20) mg/dL Creatinine 0.67 (0.66-1.25) mg/dL Glucose 113 H (74-99) mg/dL Calcium 8.7 (8.4-10.2) mg/dL Adrenal panel 01/06/24 Range/Units 06:18 Sodium 129 L (137-145) mmol/L Potassium 4.8 (3.5-5.1) mmol/L Chloride 92 L (98-107) mmol/L Carbon Dioxide 35 H (22-30) mmol/L BUN 21 H (9-20) mg/dL Creatinine 0.67 (0.66-1.25) mg/dL Glucose 113 H (74-99) mg/dL Calcium 8.7 (8.4-10.2) mg/dL
[2024-01-06 16:21] LABS: Glucose,Whole Blood 158 mg/dL (70-110)
--- NOTE | 2024-01-06 21:29 | P.CONS ---
History of Present Illness - Reason for Consult Consult date: 01/06/24 anemia Requesting physician: Grey Braun - Chief Complaint SOB - History of Present Illness Patient is a 63 yr old male with a significant history of pulmonary fibrosis and ETOH abuse. Consult was placed for evaluation of anemia. Patient presented to the ER c/o of worsening SOB. Of note patient was recently evaluated/treated for aspiration pneumonia, and has PEG tube in place and is on ice chips only due to aspiration risk. Patient follows with pulmonology for management of pulmonary fibrosis and has been on treatment with OFEV for the last approximate 18 months. Upon admission patient's hemoglobin was noted at 16.3 and has been subsequently decreasing, now at 7.5, MCV 105.4. Platelets 300,000. Patient denies history of GI bleed. Denies any recent blood in stool, melena or other episodes of acute bleeding. He has never underwent endoscopic evaluation in the past. He had Cologuard testing 6 months ago which was negative. Patient does not take any blood thinners and does not use NSAIDs frequently. He reports he has a history of heavy EtOH abuse that has been intermittent over the last 10 years. Stating he was drinking 1 pint to 1 fifth of vodka daily but quit drinking in September of this year. Patient denies previous history of blood or iron transfusions. Upon trending labs mild anemia has been noted since January 2022. However anemia is much more significant during this admission. Iron studies showing iron saturation 26% and ferritin 707. Folate 17.4. Hemolysis workup negative. He takes folate supplementation daily. Chest x-ray on admission revealed chronic lung changes with low lung volumes and mild bibasilar subsegmental atelectasis versus scarring. Abnormal bowel gas pattern, concerning for possible obstruction or ileus. CT abdomen pelvis was subsequently obtained which was overall nonspecific but findings felt to be nonobstructive bowel gas patterns. Review of Systems 10 point ROS is negative except as stated in the HPI Past Medical History Past Medical History: Musculoskeletal Disorder Additional Past Medical History / Comment(s): ETOH abuse, DTs, chronic low back pain/herniated discs/scoliosis/spinal stenosis, right shoulder, pulmonary fibrosis, Home O2 3L History of Any Multi-Drug Resistant Organisms: None Reported Past Surgical History: Orthopedic Surgery Additional Past Surgical History / Comment(s): R ankle fx with surgical repair- pin in and out, back injections at [facility]. Left knee Past Anesthesia/Blood Transfusion Reactions: No Reported Reaction Additional Past Anesthesia/Blood Transfusion Reaction / Comm: Pt has never received blood. Past Psychological History: Anxiety, Depression Smoking Status: Never smoker Past Alcohol Use History: None Reported Past Drug Use History: None Reported - Past Family History Father Family Medical History: Dementia Additional Family Medical History / Comment(s): Father is . Mother Family Medical History: Cancer Additional Family Medical History / Comment(s): Mother at age 64yrs of pa ncreatic cancer. Medications and Allergies Home Medications Medication Instructions Recorded Confirmed Type Citalopram Hydrobromide [CeleXA] 40 mg PEG/G-TUBE DAILY 03/25/21 01/01/24 History busPIRone HCL [Buspar] 7.5 mg PEG/G-TUBE BID 10/14/23 01/01/24 History Medihoney 80% Gel 1 applic TOPICAL DAILY 12/17/23 01/01/24 History ALPRAZolam [Xanax] 0.5 mg PEG/G-TUBE TID 01/01/24 01/01/24 History Acetaminophen Oral Susp [Tylenol] 640 mg PEG/G-TUBE Q4-6H PRN 01/01/24 01/01/24 History Folic Acid 1 mg PEG/G-TUBE DAILY 01/01/24 01/01/24 History Losartan [Cozaar] 50 mg PEG/G-TUBE DAILY 01/01/24 01/01/24 History Melatonin 1.5 mg PEG/G-TUBE HS 01/01/24 01/01/24 History Metoprolol Tartrate [Lopressor] 12.5 mg PEG/G-TUBE BID 01/01/24 01/01/24 History Morphine Sulfate 15 mg PEG/G-TUBE Q6H 01/01/24 01/01/24 History Nintedanib Esylate [Ofev] 150 mg PO DIRECTED 01/01/24 01/01/24 History guaiFENesin [guaiFENesin Oral 400 mg PEG/G-TUBE BID 01/01/24 01/01/24 History Solution] predniSONE See Taper PEG/G-TUBE DIRECTED 01/01/24 01/01/24 History Allergies Allergy/AdvReac Type Severity Reaction Status Date / Time No Known Allergies Allergy Verified 01/01/24 17:30 Physical Exam Vitals: Vital Signs Temp Pulse Resp BP Pulse Ox 01/06/24 08:45 93 L 01/06/24 07:24 98.1 F 79 18 119/74 98 01/06/24 02:24 98.4 F 92 20 108/75 99 01/05/24 21:43 18 01/05/24 21:20 20 01/05/24 20:34 98.6 F 91 18 112/76 98 01/05/24 16:12 97.7 F 76 20 95/59 93 L 01/05/24 13:21 97.5 F L 69 17 104/67 100 01/05/24 13:03 20 Intake and Output 01/05/24 01/06/24 01/06/24 22:59 06:59 14:59 Intake Total 10 Output Total 450 Balance 10 -450 Intake: IV 10 Invasive Line 5 10 Output: Urine 450 Other: Voiding Method Urinal Weight 50.802 kg - Constitutional General appearance: average body habitus, no acute distress - EENT Eyes: anicteric sclerae, EOMI ENT: hearing grossly normal - Respiratory Respiratory: bilateral: CTA - Cardiovascular Rhythm: regular Heart sounds: normal: S1, S2 Abnormal Heart Sounds: no systolic murmur, no diastolic murmur, no rub, no S3 Gallop, no S4 Gallop, no click, no other - Gastrointestinal General gastrointestinal: soft, no tenderness - Integumentary Integumentary: no cyanotic, pale - Neurologic Neurologic: CNII-XII intact - Musculoskeletal Musculoskeletal: strength equal bilaterally - Psychiatric Psychiatric: A&O x's 3 Results CBC & Chem 7: 01/06/24 06:18 01/06/24 06:18 Labs: Abnormal Lab Results - Last 24 Hours (Table) 01/05/24 01/05/24 01/05/24 Range/Units 11:44 16:50 20:58 WBC (3.8-10.6) k/uL RBC (4.30-5.90) m/uL Hgb (13.0-17.5) gm/dL Hct (39.0-53.0) % MCV (80.0-100.0) fL Neutrophils # (1.3-7.7) k/uL Sodium (137-145) mmol/L Chloride (98-107) mmol/L Carbon Dioxide (22-30) mmol/L BUN (9-20) mg/dL Glucose (74-99) mg/dL POC Glucose (mg/dL) 127 H 187 H 144 H (70-110) mg/dL 01/06/24 01/06/24 01/06/24 Range/Units 05:48 06:18 06:18 WBC 13.6 H (3.8-10.6) k/uL RBC 2.24 L (4.30-5.90) m/uL Hgb 7.5 L (13.0-17.5) gm/dL Hct 23.6 L (39.0-53.0) % MCV 105.4 H (80.0-100.0) fL Neutrophils # 11.1 H (1.3-7.7) k/uL Sodium 129 L (137-145) mmol/L Chloride 92 L (98-107) mmol/L Carbon Dioxide 35 H (22-30) mmol/L BUN 21 H (9-20) mg/dL Glucose 113 H (74-99) mg/dL POC Glucose (mg/dL) 125 H (70-110) mg/dL 01/06/24 Range/Units 06:46 WBC (3.8-10.6) k/uL RBC (4.30-5.90) m/uL Hgb (13.0-17.5) gm/dL Hct (39.0-53.0) % MCV (80.0-100.0) fL Neutrophils # (1.3-7.7) k/uL Sodium (137-145) mmol/L Chloride (98-107) mmol/L Carbon Dioxide (22-30) mmol/L BUN (9-20) mg/dL Glucose (74-99) mg/dL POC Glucose (mg/dL) 137 H (70-110) mg/dL Microbiology - Last 24 Hours (Table) 01/01/24 14:47 Blood Culture Gram Stain - Final Blood Blood Culture - Final Staphylococcus epidermidis Molecular ID 01/04/24 09:13 Gram Stain - Final Sputum Sputum Culture - Final April albicans 01/03/24 16:55 Blood Culture - Preliminary Blood 01/03/24 15:00 Blood Culture - Preliminary Blood Chest x-ray: report reviewed CT scan - abdomen: report reviewed CT scan - pelvis: report reviewed Assessment and Plan (1) Acute exacerbation of idiopathic pulmonary fibrosis Current Visit: Yes Status: Acute Priority: High Code(s): J84.112 - IDIOPATHIC PULMONARY FIBROSIS SNOMED Code(s): 003043672 (2) Anemia Current Visit: Yes Status: Acute Priority: High Code(s): D64.9 - ANEMIA, UNSPECIFIED SNOMED Code(s): 937933082 Plan: Anemia: Significant history of pulmonary fibrosis and ETOH abuse. Presented with c/o of worsening SOB. Patient denies history of GI bleed. Denies previous history of blood or iron transfusions. Denies any recent blood in stool, melena or other episodes of acute bleeding. He has never underwent endoscopic evaluation in the past. He had Cologuard testing 6 months ago which was negative. Patient does not take any blood thinners and does not use NSAIDs frequently. He reports he has a history of heavy EtOH abuse that has been intermittent over the last 10 years. Stating he was drinking 1 pint to 1 fifth of vodka daily but quit drinking in September of this year. -On admission patient's hemoglobin was noted at 16.3 and has been subsequently decreasing, now at 7.5, MCV 105.4. Platelets 300,000. Upon trending labs mild anemia has been noted since January 2022, however, anemia is much more significant during this admission. Iron studies showing iron saturation 26% and ferritin 707. Folate 17.4. Hemolysis workup negative. He is already taking folate supplementation daily -Will complete anemia workup -Concern for GI bleed due to significant drop in hgb since admission, and history of heavy EtOH abuse. Drop in hgb may also be attributed to history of EtOh abuse and dehydration, however drop in hgb is rather significant and recommend endoscopic evaluation, especially considering patient has never had one in the past. Also, patient is being treated with Ofev for his pulmonary fibrosis, which upon review of medication, there is increased with bleeding with this medication; will defer to pulmonology regarding medication management -General surgery consulted -Continue to monitor CBC, transfuse for hgb less than 7 or if symptomatic Pulmonary fibrosis: -History of pulmonary fibrosis. Follows with pulmonology for management and has been on treatment with Ofev for the last approximate 18 months -Defer management to pulmonology Doctor attests: I performed a history and physical examination of this patient, developed impression and plan of care. Discussed with dictator. I agree with dictators note, documented as a scribe.
[2024-01-07 00:20] LABS: Glucose,Whole Blood 129 mg/dL (70-110)
[2024-01-07 03:24] LABS: Glucose,Whole Blood 142 mg/dL (70-110)
[2024-01-07 05:57] LABS: Glucose,Whole Blood 140 mg/dL (70-110)
[2024-01-07 07:25] LABS: African American GFR (CKD) >90 (>60 ml/min/1.73 sqM); Anion Gap 5 mmol/L; Blood Urea Nitrogen 21 mg/dL (9-20); Calcium 9.5 mg/dL (8.4-10.2); Carbon Dioxide 39 mmol/L (22-30); Chloride 88 mmol/L (98-107); Glucose 112 mg/dL (74-99); Non-African American GFR(CKD) >90 (>60 ml/min/1.73 sqM); Potassium 4.6 mmol/L (3.5-5.1); Sodium 132 mmol/L (137-145)
[2024-01-07 07:42] LABS: Basophils % (A) 0 %; Eosinophils # (A) 0.1 k/uL (0-0.7); Eosinophils % (A) 1 %; HCT 27.7 % (39.0-53.0); Lymphocytes # (A) 2.1 k/uL (1.0-4.8); Lymphocytes % (A) 13 %; MCH 36.4 pg (25.0-35.0); MCV 106.9 fL (80.0-100.0); Macrocytosis Moderate; Mean Platelet Volume 9.1; Monocytes # (A) 0.7 k/uL (0-1.0); Monocytes % (A) 4 %; Neutrophils # (A) 12.8 k/uL (1.3-7.7); Neutrophils % (A) 80 %; Platelet Count 333 k/uL (150-450); RBC 2.59 m/uL (4.30-5.90); RDW 15.8 % (11.5-15.5)
--- NOTE | 2024-01-07 10:30 | P.PN ---
Subjective Progress Note Date: 01/07/24 Hospital Course: 63 year old man with history of pulmonary fibrosis with chronic respiratory fa ilure on 3 and half liters nasal cannula at home, hypertension, previous history of EtOH abuse presented for evaluation of chills, shakes, generalized weakness. In the emergency room, patient was afebrile, 124/88, heart rate 91, 100% on 6 L of nasal cannula. CBC demonstrated leukocytosis to 22.2. Basic metabolic panel showed sodium of 133, potassium 5.2, chloride of 84, CO2 of 39. Liver function test showed AST of 60, ALT of 170, alkaline phosphatase of 170, total bilirubin of 0.7. Troponin was 0.015, BNP was 527. ABG demonstrated pH of 7.47, pCO2 of 57, pO2 of 212. EKG showed sinus rhythm with peaked P waves. Chest x-ray appears to have chronic interstitial fibrotic changes bilaterally, worse on the right, and appears similar to prior. Procalcitonin negative. Leukocytosis is persistent. Microbiology showed blood cultures positive for GPC in clusters, staph epi. IV Zosyn discontinued. Repeat blood cultures negative. Patient persistently anemic, likely from hypoproliferation. However continues to go down and patient has symptoms secondary to anemia. Hematology worried about a GI bleed, surgery consulted. Pending EGD and colonoscopy. Subjective: Patient seen and examined at bedside. No acute events overnight. No new complaints. Does have an oral ulcer for the last 2 days. Pertinent positives and negatives as discussed above, a complete review of systems was performed and all other systems are negative. Vitals Signs Reviewed. General: Nontoxic, no distress, appears at stated age, thin appearing Derm: Warm, dry, PEG tube site clean, dry, intact Head: Atraumatic, normocephalic, symmetric Eyes: EOMI, no lid lag, anicteric sclera Mouth: No lip lesion, mucus membranes moist, left buccal ulcer Cardiovascular: S1S2 reg, no murmur Lungs: Fine rales, no accessory muscle use, supplemental oxygen Abdominal: Soft, nontender to palpation, no guarding, no appreciable organomegaly Ext: No gross muscle atrophy, no edema, no contractures Neuro: CN II-XI grossly intact, no focal neuro deficits Psych: Alert, oriented, appropriate affect Data Reviewed Today: Pertinent Labs: WBC 16, hemoglobin 9.4, sodium 132, creatinine 0.64, blood sugars range between [id number] Imaging: No new imaging Assessment and Plan: Active: Acute macrocytic anemia, bone marrow suppression versus GI bleed -Hemoglobin improving Hematology consulted, recommending GI workup Surgery recommending EGD and colonoscopy on Tuesday -Continue to monitor CBC Aphthous ulcer Orajel once Staph epi bacteremia, contaminant Leukocytosis, possibly steroid-induced, improving Recurrent aspiration, PEG dependent Severe protein calorie malnutrition Mild hyponatremia Chronic back pain Hyperkalemia -Pulmonology following, patient on DuoNebs every 2 hours as needed, and scheduled 4 times daily, prednisone 40 daily -Antibiotics discontinued -ID following - Continue tube feeds, dietitian following - On morphine 15 mg every 6 however, monitor for sedation Chronic: Chronic respiratory failure Interstitial pulmonary fibrosis Anxiety Depression Hypertension DVT ppx: Lovenox Code status: Full code Anticipated discharge place: Pending clinical course Anticipated discharge time: Pending clinical course Objective - Vital Signs Vital signs: Vital Signs Temp 98.6 F 01/07/24 07:00 Pulse 86 01/07/24 09:05 Resp 17 01/07/24 09:05 BP 119/81 01/07/24 07:00 Pulse Ox 99 01/07/24 07:00 FiO2 Intake & Output 01/06/24 01/07/24 01/07/24 18:59 06:59 18:59 Output Total 875 500 200 Balance -875 -500 -200 Weight 49.9 kg Output: Urine 875 500 200 Other: Voiding Method Urinal Urinal # Voids 2 - Labs CBC & Chem 7: 01/07/24 06:03 01/07/24 06:03 Labs: Abnormal Lab Results - Last 24 Hours (Table) 01/06/24 01/06/24 01/07/24 Range/Units 11:40 16:20 00:19 WBC (3.8-10.6) k/uL RBC (4.30-5.90) m/uL Hgb (13.0-17.5) gm/dL Hct (39.0-53.0) % MCV (80.0-100.0) fL MCH (25.0-35.0) pg RDW (11.5-15.5) % Neutrophils # (1.3-7.7) k/uL Sodium (137-145) mmol/L Chloride (98-107) mmol/L Carbon Dioxide (22-30) mmol/L BUN (9-20) mg/dL Creatinine (0.66-1.25) mg/dL Glucose (74-99) mg/dL POC Glucose (mg/dL) 124 H 158 H 129 H (70-110) mg/dL 01/07/24 01/07/24 01/07/24 Range/Units 03:21 05:55 06:03 WBC 16.0 H (3.8-10.6) k/uL RBC 2.59 L (4.30-5.90) m/uL Hgb 9.4 L D (13.0-17.5) gm/dL Hct 27.7 L (39.0-53.0) % MCV 106.9 H (80.0-100.0) fL MCH 36.4 H (25.0-35.0) pg RDW 15.8 H (11.5-15.5) % Neutrophils # 12.8 H (1.3-7.7) k/uL Sodium (137-145) mmol/L Chloride (98-107) mmol/L Carbon Dioxide (22-30) mmol/L BUN (9-20) mg/dL Creatinine (0.66-1.25) mg/dL Glucose (74-99) mg/dL POC Glucose (mg/dL) 142 H 140 H (70-110) mg/dL 01/07/24 Range/Units 06:03 WBC (3.8-10.6) k/uL RBC (4.30-5.90) m/uL Hgb (13.0-17.5) gm/dL Hct (39.0-53.0) % MCV (80.0-100.0) fL MCH (25.0-35.0) pg RDW (11.5-15.5) % Neutrophils # (1.3-7.7) k/uL Sodium 132 L (137-145) mmol/L Chloride 88 L (98-107) mmol/L Carbon Dioxide 39 H (22-30) mmol/L BUN 21 H (9-20) mg/dL Creatinine 0.64 L (0.66-1.25) mg/dL Glucose 112 H (74-99) mg/dL POC Glucose (mg/dL) (70-110) mg/dL Microbiology - Last 24 Hours (Table) 01/03/24 16:55 Blood Culture - Preliminary Blood 01/03/24 15:00 Blood Culture - Preliminary Blood 01/01/24 14:47 Blood Culture Gram Stain - Final Blood Blood Culture - Final Staphylococcus epidermidis Molecular ID 01/04/24 09:13 Gram Stain - Final Sputum Sputum Culture - Final April albicans
[2024-01-07 12:01] LABS: Glucose,Whole Blood 139 mg/dL (70-110)
[2024-01-07] MEDS: BENZOCAINE 20 % GEL 11.9 GM TUBE MM ONE (12:31)
--- NOTE | 2024-01-07 15:59 | P.PN ---
Subjective Progress Note Date: 01/07/24 Patient is a 63-year-old white male with past medical history significant for advanced pulmonary fibrosis and restrictive lung disease treated with Ofev, previous ventilator dependent respiratory failure, alcoholism. Patient did have a recent prolonged and complicated hospitalization 12/16/2023 through 12/28/2023. He was treated for aspiration pneumonia. He did undergo a swallow evaluation showed aspiration with various consistencies. He did have a a PEG tube placed 12/26/2023. Patient returned to the emergency room yesterday afternoon complaining of severe weakness. He has no other specific complaints. He denies any change in his chronic shortness of breath. He does have a chronic cough. Currently, he is producing some clear sputum. No fevers. No chest pain. A follow-up chest x-ray showed chronic lung changes with low lung volumes and mild bibasilar atelectasis. Improvement in the patient's previous consolidative lung infiltrates. There is abnormal gas pattern suggestive of po ssible obstruction or severe ileus. This was followed up with an abdominal and pelvis CT which showed a likely nonobstructive bowel gas pattern. Patient is currently lying in bed on 4 L/min nasal cannula, in no acute distress. He actually has no specific complaints other than generalized and severe weakness. He has had to use a wheelchair to get around. His daughter and son-in-law have moved in to help him. He has been using his PEG tube for bolus feeding. Denies nausea, vomiting, abdominal pain. He has had loose bowel movements. He has not been able to take his Ofev, he states that special effects technician does not recommend crushing and putting through PEG tube. An ABG was done in the emergency room, which showed a component of compensated chronic hypercapnic respiratory failure. CBC on arrival: WBC count 22, hemoglobin 16.3, hematocrit 50.3, platelets 395. CMP on arrival: Sodium 133, potassium 5.2, chloride 84, serum bicarb 39, BUN 30, creatinine 0.69, glucose 157. Lactic acid level 2.7 down to 1.7. LFTs mildly elevated. Troponin 0.015. NT proBNP 527. In the emergency room, the patient was continued on Zosyn. Currently afebrile. Hemodynamically stable. The patient was seen today and the patient is currently on 40s of oxygen by nasal cannula. He continues to have some cough and congestion.The patient blood work shows leukocytosis with a white cell count of 25 which is slightly higher compared to yesterday with a hemoglobin of 13.5 which is lower compared to yesterday. Platelet counts are stable at 313. The patient is having normal renal function with a BUN of 22 and a creatinine of 0.6 and sodium levels at 132. Procalcitonin level came back at 0.08. The scleroderma antibodies are negative. RUBY was also negative. I reviewed the CAT scan of the abdomen and p carlos and the CAT scan shows chronic scarring and bronchiectatic change in lung bases. Prominent pulmonary arteries consistent with pulm hypertension. Rest of the intra-abdominal structures were essentially within normal limits and the PEG tube is in a good location. There are some nonspecific bowel gas pattern without any evidence of any obstruction or small bowel dilatation. As for the chest x-ray that was done at time of admission, it shows a smaller lung volumes, some atelectatic changes and chronic scarring lung base bilaterally consistent with with his underlying pulmonary fibrosis. Aspiration was suspected and the patient remains on IV Zosyn. Patient is also on DuoNeb nebulized treatments [id number]. The patient is on IV Solu-Medrol 60 mg every 6 hours. Rest of the home medication have been resumed. The patient on Lovenox for DVT prophylaxis. On 01/03/2024, the patient is being seen for a follow-up. The patient is feeling better on today's evaluation. The patient is down to 2 L of oxygen by nasal cannula which is his baseline oxygen requirements. Denies having any chest pain. No other significant events overnight. The white cell count remains elevated at 25.5 with a hemoglobin 8.6 and a platelet count of 314. BUN is at 31 with a creatinine of 0.7 and sodium levels at 132. Procalcitonin level was low at 0.08. The patient remains on DuoNeb updrafts. The patient remains on IV Solu-Medrol 60 mg every 6 hours. The patient remains on IV Zosyn which is essentially empiric antibiotic coverage. Blood cultures are negative thus far. The patient was also started on enteral feeding for nutritional support and the patient is currently on Jevity 1.2 at the rate of 42 cc an hour. Overnight, the patient is in a episode of hypotension with a systolic blood pressure in the low 70s. The patient was given a liter bolus and currently is normotensive. Denies having any chest pain. No altered mentation. No chest pain. No other significant events otherwise. On today's evaluation of 01/04/2024, the patient is doing well. No specific complaints. Feeling better and stronger compared to yesterday. He is on 2 L of oxygen by nasal cannula with a pulse ox of 99%. Afebrile. Hemodynamically stable. White cell count is at 25 which remains elevated and I think this is partly related to steroids. I am going to discontinue the IV Solu-Medrol and the patient will be started on oral prednisone. White cell count is stable at 8.9. This is stable compared to yesterday. Nevertheless, the patient experienced a significant drop in the hemoglobin since his previous admissions. No evidence of any GI bleeding at this point in time. PEG tube site is clean and the patient is having enteral feeding for nutritional support. No reported aspiration at this point in time. Microbiology from the blood cultures showing gram-positive cocci in clusters and this is consistent with coagulase-negative staph. BUN is at 26 with a creatinine of 0.7 and a sodium levels at 132 with a potassium level of 5.2.This patient did not show any signs of any GI bleeding. He did encounter a brief episode of hypotension 48 hours ago and this recovered with IV fluids and he has been normotensive since. He is feeling fine. Hemoglobin is being monitored. On today's evaluation of 01/05/2024, no new complaints. The patient was encouraged improving and the patient's white count down to 16.7, it was at 7.9, and a platelet count is at 275. He is afebrile. Currently on 3 Suboxone by nasal cannula with a pulse ox of 99%. Continues to receive enteral feeding for nutritional support. Clearance was given to swallow his Ofev tablets regarding his IPF. Is currently on prednisone burst taper starting with 40 mg. Remains on DuoNeb updrafts. Rest of the medication remains unchanged. No altered mentation for now. The patient has developed some acute drop in hemoglobin down to 7.9. The hemoglobin has been steadily dropping since admission. No signs of any acute bleeding. Medical team is aware of the drop in hemoglobin this is being monitored very closely. On today's evaluation of 01/06/2024, the patient is being seen for a follow-up. No significant change in his respiratory status. The patient's hemoglobin is still downtrending is currently down to 7.5. Hematology oncology is on the case. The white cell count at 13.6. Platelet count 300. Sodium is at 129 with a BUN of 21 and creatinine of 0.6. The patient does have a sputum sample is positive for April and the blood cultures positive for Staph epidermidis. The patient has advanced pulmonary fibrosis. The patient also has chronic dysphagia utilizing PEG tube feeding for enteral feeding and nutritional support. Hematology oncology is evaluating this patient regarding the ongoing anemia. No evidence of any acute bleeding. His reticulocyte count has been low. Vitamin B12 has been normal and the patient is on folic acid supplements. Hemoglobin is being monitored. On today's evaluation of 01/07/2024, the patient is being seen for a follow-up. No new complaints. Hemoglobin is stable at 9.4. BUN is at 21 with a creatinine of 0.6 and sodium levels at 132. Oxygenation is also stable at 3 L with a pulse ox of 98%. Continues to receive enteral feeding for nutritional support. The patient has no new complaints. The patient completed the course of IV Zosyn. Currently on antibiotic coverage. White cell count is at 16. Tolerating enteral feeding for nutritional support. No reported aspiration. No other new complaints otherwise for now. Hemoglobin is being monitored and current hemoglobin is up to 9.4. Objective - Vital Signs Vital signs: Vital Signs Temp 98.6 F 01/07/24 07:00 Pulse 86 01/07/24 09:05 Resp 17 01/07/24 09:05 BP 119/81 01/07/24 07:00 Pulse Ox 99 01/07/24 07:00 FiO2 Intake & Output 01/06/24 01/07/24 01/07/24 18:59 06:59 18:59 Output Total 875 500 200 Balance -875 -500 -200 Weight 49.9 kg Output: Urine 875 500 200 Other: Voiding Method Urinal Urinal # Voids 2 - Exam GENERAL EXAM: Alert, 63-year-old white male, pleasant, cachectic, comfortable in no apparent distress. Requires assistance to sit up in bed. The patient is currently on 3 L of oxygen nasal cannula HEAD: Normocephalic and atraumatic EYES: Normal reaction of pupils, equal size. NOSE: Clear with pink turbinates. THROAT: No erythema or exudates. NECK: No masses, no JVD. CHEST: No chest wall deformity. LUNGS: Equal air entry with inspiratory bibasilar Velcro crackles. . No conversational dyspnea or accessory muscle use while at rest. CVS: S1 and S2 normal with no audible murmur, regular rhythm. No extra heart sounds ABDOMEN: No hepatosplenomegaly, active bowel sounds, no guarding or rigidity. PEG tube site clean, dry, without any drainage. SPINE: No scoliosis or deformity SKIN: No rashes CENTRAL NERVOUS SYSTEM: No focal deficits, tone is normal in all 4 extremities. EXTREMITIES: There is no peripheral edema, clubbing, or cyanosis. Peripheral pulses are intact. - Labs CBC & Chem 7: 01/07/24 06:03 01/07/24 06:03 Labs: Abnormal Lab Results - Last 24 Hours (Table) 01/06/24 01/06/24 01/07/24 Range/Units 11:40 16:20 00:19 WBC (3.8-10.6) k/uL RBC (4.30-5.90) m/uL Hgb (13.0-17.5) gm/dL Hct (39.0-53.0) % MCV (80.0-100.0) fL MCH (25.0-35.0) pg RDW (11.5-15.5) % Neutrophils # (1.3-7.7) k/uL Sodium (137-145) mmol/L Chloride (98-107) mmol/L Carbon Dioxide (22-30) mmol/L BUN (9-20) mg/dL Creatinine (0.66-1.25) mg/dL Glucose (74-99) mg/dL POC Glucose (mg/dL) 124 H 158 H 129 H (70-110) mg/dL 01/07/24 01/07/24 01/07/24 Range/Units 03:21 05:55 06:03 WBC 16.0 H (3.8-10.6) k/uL RBC 2.59 L (4.30-5.90) m/uL Hgb 9.4 L D (13.0-17.5) gm/dL Hct 27.7 L (39.0-53.0) % MCV 106.9 H (80.0-100.0) fL MCH 36.4 H (25.0-35.0) pg RDW 15.8 H (11.5-15.5) % Neutrophils # 12.8 H (1.3-7.7) k/uL Sodium (137-145) mmol/L Chloride (98-107) mmol/L Carbon Dioxide (22-30) mmol/L BUN (9-20) mg/dL Creatinine (0.66-1.25) mg/dL Glucose (74-99) mg/dL POC Glucose (mg/dL) 142 H 140 H (70-110) mg/dL 01/07/24 Range/Units 06:03 WBC (3.8-10.6) k/uL RBC (4.30-5.90) m/uL Hgb (13.0-17.5) gm/dL Hct (39.0-53.0) % MCV (80.0-100.0) fL MCH (25.0-35.0) pg RDW (11.5-15.5) % Neutrophils # (1.3-7.7) k/uL Sodium 132 L (137-145) mmol/L Chloride 88 L (98-107) mmol/L Carbon Dioxide 39 H (22-30) mmol/L BUN 21 H (9-20) mg/dL Creatinine 0.64 L (0.66-1.25) mg/dL Glucose 112 H (74-99) mg/dL POC Glucose (mg/dL) (70-110) mg/dL Microbiology - Last 24 Hours (Table) 01/03/24 16:55 Blood Culture - Preliminary Blood 01/03/24 15:00 Blood Culture - Preliminary Blood 01/01/24 14:47 Blood Culture Gram Stain - Final Blood Blood Culture - Final Staphylococcus epidermidis Molecular ID 01/04/24 09:13 Gram Stain - Final Sputum Sputum Culture - Final April albicans Assessment and Plan Plan: Acute on chronic hypoxemic respiratory failure, follow-up chest x-ray shows improvement in the patient's previous superimposed lung consolidations. There are chronic lung changes with low lung volumes and mild bibasilar atelectasis versus scarring. The patient's oxygenation is stable and the patient is currently on 3 L O2 nasal cannula. Suspect chemical pneumonitis. Procalcitonin level is nonelevated. Clinically stable. Monitor for worsening shortness of breath. White cell count is down to 16 completed course of IV Zosyn Recent hospital admission for suspected aspiration pneumonia, completed the course of IV Zosyn Acute leukocytosis, improving and the white cell count is down to 16 Acute drop in hemoglobin. No evidence of any GI bleeding. Hemoglobin is gwendolyn at 9.4 Interstitial pulmonary fibrosis, previously maintained on Ofev, unable to take the medication as the medication is not crushable through the PEG tube. Chronic hypoxemic respiratory failure, secondary to above, normally maintained on 3 L/min nasal cannula Chronic hypercapnic respiratory failure Severe generalized weakness and deconditioning Severe protein calorie malnutrition Dysphagia, status post PEG tube insertion on 12/26/2023, has been giving himself bolus feeds at home. History of alcoholism Osteoarthritis Chronic back pain Plan: Overall respiratory status is stable and the patient remains on 3 L of O2 nasal cannula Monitor the hemoglobin currently at 9.4 Aspiration precautions Continue supplemental oxygen Complete the course of IV Zosyn Continue prednisone 40 mg p.o. daily. This is part of burst taper Should be able to take IPF medication, Ofev orally. The patient was started on Jevity which is running at 47 cc an hour. Monitor the hemoglobin Monitor the white cell count Overall prognosis is guarded related to above-mentioned comorbidities.
--- NOTE | 2024-01-07 17:24 | P.PN ---
Subjective patient seen and evaluated bedside. No new complaints denies abdominal pain. Objective - Vital Signs Vital signs: Vital Signs Temp 98.7 F 01/07/24 13:00 Pulse 92 01/07/24 13:00 Resp 17 01/07/24 13:00 BP 106/75 01/07/24 13:00 Pulse Ox 98 01/07/24 13:00 FiO2 Intake & Output 01/06/24 01/07/24 01/07/24 18:59 06:59 18:59 Intake Total 350 Output Total 875 500 700 Balance -875 -500 -350 Weight 49.9 kg Intake: Tube Feeding 350 Output: Urine 875 500 700 Other: Voiding Method Urinal Urinal # Voids 2 - Exam Physical exam: HEENT: Normocephalic, sclerae nonicteric Chest: Clear to auscultation Heart: Regular rate and rhythm Abdomen: [Nontender, nondistended] Extremities: No edema Neuro: Alert and oriented - Labs CBC & Chem 7: 01/07/24 06:03 01/07/24 06:03 Labs: Abnormal Lab Results - Last 24 Hours (Table) 01/07/24 01/07/24 01/07/24 Range/Units 00:19 03:21 05:55 WBC (3.8-10.6) k/uL RBC (4.30-5.90) m/uL Hgb (13.0-17.5) gm/dL Hct (39.0-53.0) % MCV (80.0-100.0) fL MCH (25.0-35.0) pg RDW (11.5-15.5) % Neutrophils # (1.3-7.7) k/uL Sodium (137-145) mmol/L Chloride (98-107) mmol/L Carbon Dioxide (22-30) mmol/L BUN (9-20) mg/dL Creatinine (0.66-1.25) mg/dL Glucose (74-99) mg/dL POC Glucose (mg/dL) 129 H 142 H 140 H (70-110) mg/dL 01/07/24 01/07/24 01/07/24 Range/Units 06:03 06:03 11:59 WBC 16.0 H (3.8-10.6) k/uL RBC 2.59 L (4.30-5.90) m/uL Hgb 9.4 L D (13.0-17.5) gm/dL Hct 27.7 L (39.0-53.0) % MCV 106.9 H (80.0-100.0) fL MCH 36.4 H (25.0-35.0) pg RDW 15.8 H (11.5-15.5) % Neutrophils # 12.8 H (1.3-7.7) k/uL Sodium 132 L (137-145) mmol/L Chloride 88 L (98-107) mmol/L Carbon Dioxide 39 H (22-30) mmol/L BUN 21 H (9-20) mg/dL Creatinine 0.64 L (0.66-1.25) mg/dL Glucose 112 H (74-99) mg/dL POC Glucose (mg/dL) 139 H (70-110) mg/dL Microbiology - Last 24 Hours (Table) 01/03/24 16:55 Blood Culture - Preliminary Blood 01/03/24 15:00 Blood Culture - Preliminary Blood Assessment and Plan Assessment: 1. Macrocytic anemia with significant drop in his hemoglobin on admission. No active bleeding. 2. Recurrent aspiration, PEG tube dependent 3. Severe protein calorie malnutrition 4. Chronic respiratory failure 5. History of interstitial pulmonary fibrosis PLAN: -Patient scheduled for EGD and colonoscopy on January [address] Young -Continue to monitor hemoglobin -Continue to monitor for any signs or symptoms of bleeding Time with Patient: Greater than 30
[2024-01-08 01:46] LABS: Glucose,Whole Blood 123 mg/dL (70-110)
[2024-01-08 06:16] LABS: Glucose,Whole Blood 107 mg/dL (70-110)
[2024-01-08 07:46] LABS: Anisocytosis Slight; Basophils % (A) 0 %; Eosinophils # (A) 0.1 k/uL (0-0.7); Eosinophils % (A) 1 %; HCT 29.2 % (39.0-53.0); HGB 9.4 gm/dL (13.0-17.5); Lymphocytes # (A) 1.9 k/uL (1.0-4.8); Lymphocytes % (A) 10 %; MCH 34.8 pg (25.0-35.0); MCHC 32.2 g/dL (31.0-37.0); MCV 108.1 fL (80.0-100.0); Macrocytosis Marked; Mean Platelet Volume 8.7; Monocytes # (A) 0.7 k/uL (0-1.0); Monocytes % (A) 4 %; Neutrophils # (A) 16.4 k/uL (1.3-7.7); Neutrophils % (A) 84 %; Platelet Count 369 k/uL (150-450); RDW 16.3 % (11.5-15.5); WBC 19.6 k/uL (3.8-10.6)
[2024-01-08 08:25] LABS: Anisocytosis (M) Present; Hypochromasia (M) Present
[2024-01-08 08:26] LABS: Polychromasia Present
[2024-01-08] MEDS: LACTULOSE 20 GM/30 ML CUP PEG/G-TUBE ONE (08:27)
[2024-01-08 08:46] LABS: African American GFR (CKD) >90 (>60 ml/min/1.73 sqM); Anion Gap 8 mmol/L; Blood Urea Nitrogen 23 mg/dL (9-20); Calcium 9.4 mg/dL (8.4-10.2); Carbon Dioxide 36 mmol/L (22-30); Chloride 90 mmol/L (98-107); Glucose 86 mg/dL (74-99); Non-African American GFR(CKD) >90 (>60 ml/min/1.73 sqM); Sodium 134 mmol/L (137-145)
--- NOTE | 2024-01-08 09:53 | P.PN ---
Subjective Progress Note Date: 01/08/24 Hospital Course: 63 year old man with history of pulmonary fibrosis with chronic respiratory fa ilure on 3 and half liters nasal cannula at home, hypertension, previous history of EtOH abuse presented for evaluation of chills, shakes, generalized weakness. In the emergency room, patient was afebrile, 124/88, heart rate 91, 100% on 6 L of nasal cannula. CBC demonstrated leukocytosis to 22.2. Basic metabolic panel showed sodium of 133, potassium 5.2, chloride of 84, CO2 of 39. Liver function test showed AST of 60, ALT of 170, alkaline phosphatase of 170, total bilirubin of 0.7. Troponin was 0.015, BNP was 527. ABG demonstrated pH of 7.47, pCO2 of 57, pO2 of 212. EKG showed sinus rhythm with peaked P waves. Chest x-ray appears to have chronic interstitial fibrotic changes bilaterally, worse on the right, and appears similar to prior. Procalcitonin negative. Leukocytosis is persistent. Microbiology showed blood cultures positive for GPC in clusters, staph epi. IV Zosyn discontinued. Repeat blood cultures negative. Patient persistently anemic, likely from hypoproliferation. However continues to go down and patient has symptoms secondary to anemia. Hematology worried about a GI bleed, surgery consulted. Pending EGD and colonoscopy tomorrow. Subjective: Patient seen and examined at bedside. No acute events overnight. No new complaints. Pertinent positives and negatives as discussed above, a complete review of systems was performed and all other systems are negative. Vitals Signs Reviewed. General: Nontoxic, no distress, appears at stated age, thin appearing Derm: Warm, dry, PEG tube site clean, dry, intact Head: Atraumatic, normocephalic, symmetric Eyes: EOMI, no lid lag, anicteric sclera Mouth: No lip lesion, mucus membranes moist, left buccal ulcer Cardiovascular: S1S2 reg, no murmur Lungs: Fine rales, no accessory muscle use, supplemental oxygen Abdominal: Soft, nontender to palpation, no guarding, no appreciable organomegaly Ext: No gross muscle atrophy, no edema, no contractures Neuro: CN II-XI grossly intact, no focal neuro deficits Psych: Alert, oriented, appropriate affect Data Reviewed Today: Pertinent Labs: WBC 19.6, hemoglobin 9.4, creatinine 0.61, blood sugars range between 86-1 39 Imaging: No new imaging Assessment and Plan: Active: Acute macrocytic anemia, bone marrow suppression versus GI bleed -Hemoglobin stable - Hematology consulted, recommending GI workup - Surgery recommending EGD and colonoscopy on Tuesday -Continue to monitor CBC Aphthous ulcer -Status post Orajel Staph epi bacteremia, contaminant Leukocytosis, possibly steroid-induced, improving Recurrent aspiration, PEG dependent Severe protein calorie malnutrition Mild hyponatremia Chronic back pain Hyperkalemia -Pulmonology following, patient on DuoNebs every 2 hours as needed, and scheduled 4 times daily, prednisone 40 daily, burst taper, on ofev -Antibiotics discontinued -ID following - Continue tube feeds, dietitian following - On morphine 15 mg every 6 however, monitor for sedation Chronic: Chronic respiratory failure Interstitial pulmonary fibrosis Anxiety Depression Hypertension DVT ppx: Lovenox Code status: Full code Anticipated discharge place: Pending clinical course Anticipated discharge time: Pending clinical course Objective - Vital Signs Vital signs: Vital Signs Temp 97.8 F 01/08/24 07:00 Pulse 87 01/08/24 07:00 Resp 17 01/08/24 07:00 BP 117/78 01/08/24 07:00 Pulse Ox 98 01/08/24 08:50 FiO2 Intake & Output 01/07/24 01/08/24 01/08/24 18:59 06:59 18:59 Intake Total 350 Output Total 700 300 Balance -350 -300 Weight 49.4 kg Intake: Tube Feeding 350 Output: Urine 700 300 Other: Voiding Method Urinal # Voids 2 - Labs CBC & Chem 7: 01/08/24 06:42 01/08/24 06:42 Labs: Abnormal Lab Results - Last 24 Hours (Table) 01/07/24 01/08/24 01/08/24 Range/Units 11:59 01:43 06:42 WBC 19.6 H (3.8-10.6) k/uL RBC 2.70 L (4.30-5.90) m/uL Hgb 9.4 L (13.0-17.5) gm/dL Hct 29.2 L (39.0-53.0) % MCV 108.1 H (80.0-100.0) fL RDW 16.3 H (11.5-15.5) % Neutrophils # 16.4 H (1.3-7.7) k/uL Macrocytosis Marked A Sodium (137-145) mmol/L Chloride (98-107) mmol/L Carbon Dioxide (22-30) mmol/L BUN (9-20) mg/dL Creatinine (0.66-1.25) mg/dL POC Glucose (mg/dL) 139 H 123 H (70-110) mg/dL 01/08/24 Range/Units 06:42 WBC (3.8-10.6) k/uL RBC (4.30-5.90) m/uL Hgb (13.0-17.5) gm/dL Hct (39.0-53.0) % MCV (80.0-100.0) fL RDW (11.5-15.5) % Neutrophils # (1.3-7.7) k/uL Macrocytosis Sodium 134 L (137-145) mmol/L Chloride 90 L (98-107) mmol/L Carbon Dioxide 36 H (22-30) mmol/L BUN 23 H (9-20) mg/dL Creatinine 0.61 L (0.66-1.25) mg/dL POC Glucose (mg/dL) (70-110) mg/dL
[2024-01-08] MEDS: PEG 3350 (420 GM/BTL) + LYTES 4,000 ML BOTTLE PO ONE (10:36)
[2024-01-08 11:36] LABS: Glucose,Whole Blood 132 mg/dL (70-110)
--- NOTE | 2024-01-08 13:09 | P.PN ---
Subjective Progress Note Date: 01/08/24 Feeding tube was placed for aspiration. He is emaciated. at bedside. He has personal history of pulmonary fibrosis. He denies dysphagia. Hgb increasing. No signs of bleeding. ABDOMEN: Feeding tube intact. PLAN: 1. EGD and Colonoscopy for acute blood anemia 2. Hold tube feeds for midnight tonight. 3. All questions addressed with patient and family. Objective - Vital Signs Vital signs: Vital Signs Temp 97.8 F 01/08/24 07:00 Pulse 87 01/08/24 07:00 Resp 17 01/08/24 07:00 BP 117/78 01/08/24 07:00 Pulse Ox 98 01/08/24 08:50 FiO2 Intake & Output 01/07/24 01/08/24 01/08/24 18:59 06:59 18:59 Intake Total 350 200 Output Total 700 300 Balance -350 -100 Weight 49.4 kg Intake: Tube Feeding 350 200 Output: Urine 700 300 Other: Voiding Method Urinal # Voids 2 # Bowel Movements 1 - Labs CBC & Chem 7: 01/08/24 06:42 01/08/24 06:42 Labs: Abnormal Lab Results - Last 24 Hours (Table) 01/08/24 01/08/24 01/08/24 Range/Units 01:43 06:42 06:42 WBC 19.6 H (3.8-10.6) k/uL RBC 2.70 L (4.30-5.90) m/uL Hgb 9.4 L (13.0-17.5) gm/dL Hct 29.2 L (39.0-53.0) % MCV 108.1 H (80.0-100.0) fL RDW 16.3 H (11.5-15.5) % Neutrophils # 16.4 H (1.3-7.7) k/uL Macrocytosis Marked A Sodium 134 L (137-145) mmol/L Chloride 90 L (98-107) mmol/L Carbon Dioxide 36 H (22-30) mmol/L BUN 23 H (9-20) mg/dL Creatinine 0.61 L (0.66-1.25) mg/dL POC Glucose (mg/dL) 123 H (70-110) mg/dL 01/08/24 Range/Units 11:34 WBC (3.8-10.6) k/uL RBC (4.30-5.90) m/uL Hgb (13.0-17.5) gm/dL Hct (39.0-53.0) % MCV (80.0-100.0) fL RDW (11.5-15.5) % Neutrophils # (1.3-7.7) k/uL Macrocytosis Sodium (137-145) mmol/L Chloride (98-107) mmol/L Carbon Dioxide (22-30) mmol/L BUN (9-20) mg/dL Creatinine (0.66-1.25) mg/dL POC Glucose (mg/dL) 132 H (70-110) mg/dL
--- NOTE | 2024-01-08 14:42 | P.PN ---
Subjective Progress Note Date: 01/07/24 Principal diagnosis: Reason for follow-up is positive blood culture and leukocytosis Patient is a 63-year-old male with a past medical history significant for pulmonary fibrosis EtOH abuse DTs, recently prolonged stay for aspiration pneumonia and cardiac PEG tube presenting back to the hospital with worsening shortness of breath did have a positive blood culture prompting this consultation. On today's visit that is 01/07/2024, patient has been afebrile, patient is breathing comfortably and is currently on 3 L nasal cannula oxygen, patient denies having any significant cough no chest pain shortness of breath, patient denies nausea vomiting or diarrhea and no abdominal pain, no new symptoms. Patient white count is down to 16,000, creatinine 0.64 Objective - Vital Signs Vital signs: Vital Signs Temp 98.6 F 01/07/24 07:00 Pulse 86 01/07/24 09:05 Resp 17 01/07/24 09:05 BP 119/81 01/07/24 07:00 Pulse Ox 99 01/07/24 07:00 FiO2 Intake & Output 01/06/24 01/07/24 01/07/24 18:59 06:59 18:59 Output Total 875 500 200 Balance -875 -500 -200 Weight 49.9 kg Output: Urine 875 500 200 Other: Voiding Method Urinal Urinal # Voids 2 - Exam GENERAL DESCRIPTION: Middle-age male up in bed in no distress RESPIRATORY SYSTEM: Unlabored breathing , decreased breath sounds at bases HEART: S1 S2 regular rate and rhythm , ABDOMEN: Soft , no tenderness EXTREMITIES: No edema feet - Labs CBC & Chem 7: 01/08/24 06:42 01/08/24 06:42 Labs: Abnormal Lab Results - Last 24 Hours (Table) 01/06/24 01/07/24 01/07/24 Range/Units 16:20 00:19 03:21 WBC (3.8-10.6) k/uL RBC (4.30-5.90) m/uL Hgb (13.0-17.5) gm/dL Hct (39.0-53.0) % MCV (80.0-100.0) fL MCH (25.0-35.0) pg RDW (11.5-15.5) % Neutrophils # (1.3-7.7) k/uL Sodium (137-145) mmol/L Chloride (98-107) mmol/L Carbon Dioxide (22-30) mmol/L BUN (9-20) mg/dL Creatinine (0.66-1.25) mg/dL Glucose (74-99) mg/dL POC Glucose (mg/dL) 158 H 129 H 142 H (70-110) mg/dL 01/07/24 01/07/24 01/07/24 Range/Units 05:55 06:03 06:03 WBC 16.0 H (3.8-10.6) k/uL RBC 2.59 L (4.30-5.90) m/uL Hgb 9.4 L D (13.0-17.5) gm/dL Hct 27.7 L (39.0-53.0) % MCV 106.9 H (80.0-100.0) fL MCH 36.4 H (25.0-35.0) pg RDW 15.8 H (11.5-15.5) % Neutrophils # 12.8 H (1.3-7.7) k/uL Sodium 132 L (137-145) mmol/L Chloride 88 L (98-107) mmol/L Carbon Dioxide 39 H (22-30) mmol/L BUN 21 H (9-20) mg/dL Creatinine 0.64 L (0.66-1.25) mg/dL Glucose 112 H (74-99) mg/dL POC Glucose (mg/dL) 140 H (70-110) mg/dL Microbiology - Last 24 Hours (Table) 01/03/24 16:55 Blood Culture - Preliminary Blood 01/03/24 15:00 Blood Culture - Preliminary Blood 01/01/24 14:47 Blood Culture Gram Stain - Final Blood Blood Culture - Final Staphylococcus epidermidis Molecular ID 01/04/24 09:13 Gram Stain - Final Sputum Sputum Culture - Final April albicans Assessment and Plan (1) Positive blood culture Current Visit: Yes Status: Acute Priority: High Code(s): R78.81 - BACTEREMIA SNOMED Code(s): 597717680 (2) Leukocytosis Current Visit: No Status: Acute Code(s): D72.829 - ELEVATED WHITE BLOOD CELL COUNT, UNSPECIFIED SNOMED Code(s): 939845879 Plan: 1patient with a positive blood culture with staph epi will likely significant admission of the patient no clinical disease to go along with it and there is no need for any vancomycin blood culture has been repeated document clearance and so far negative no need for vancomycin 2-patient with admission to hospital worsening shortness of breath possibly related to his underlying pulmonary fibrosis/tracheobronchitis, sputum has been April albicans 3-leukocytosis more likely steroid related, and noticed to have slight worsening that will be monitored closely Dictation was produced using [employer] dictation software. please excuse any grammatical, word or spelling errors. Time with Patient: Less than 30
--- NOTE | 2024-01-08 14:43 | P.PN ---
Subjective Progress Note Date: 01/08/24 Principal diagnosis: Reason for follow-up is positive blood culture and leukocytosis Patient is a 63-year-old male with a past medical history significant for pulmonary fibrosis EtOH abuse DTs, recently prolonged stay for aspiration pneumonia and cardiac PEG tube presenting back to the hospital with worsening shortness of breath did have a positive blood culture prompting this consultation. On today's visit that is 01/08/2024,the patient denies any fever or any chills, patient is breathing comfortably on room air, the patient denies chest pain shortness of breath and no significant cough, patient denies abdominal pain, no nausea vomiting or diarrhea. Patient white count is up to 19.6, creatinine 0.61 Objective - Vital Signs Vital signs: Vital Signs Temp 97.9 F 01/08/24 13:00 Pulse 86 01/08/24 13:00 Resp 16 01/08/24 13:00 BP 100/70 01/08/24 13:00 Pulse Ox 100 01/08/24 13:00 FiO2 Intake & Output 01/07/24 01/08/24 01/08/24 18:59 06:59 18:59 Intake Total 350 200 Output Total 700 300 Balance -350 -100 Weight 49.4 kg Intake: Tube Feeding 350 200 Output: Urine 700 300 Other: Voiding Method Urinal # Voids 2 # Bowel Movements 1 - Exam GENERAL DESCRIPTION: Middle-age male up in bed in no distress RESPIRATORY SYSTEM: Unlabored breathing , decreased breath sounds at bases HEART: S1 S2 regular rate and rhythm , ABDOMEN: Soft , no tenderness EXTREMITIES: No edema feet - Labs CBC & Chem 7: 01/08/24 06:42 01/08/24 06:42 Labs: Abnormal Lab Results - Last 24 Hours (Table) 01/08/24 01/08/24 01/08/24 Range/Units 01:43 06:42 06:42 WBC 19.6 H (3.8-10.6) k/uL RBC 2.70 L (4.30-5.90) m/uL Hgb 9.4 L (13.0-17.5) gm/dL Hct 29.2 L (39.0-53.0) % MCV 108.1 H (80.0-100.0) fL RDW 16.3 H (11.5-15.5) % Neutrophils # 16.4 H (1.3-7.7) k/uL Macrocytosis Marked A Sodium 134 L (137-145) mmol/L Chloride 90 L (98-107) mmol/L Carbon Dioxide 36 H (22-30) mmol/L BUN 23 H (9-20) mg/dL Creatinine 0.61 L (0.66-1.25) mg/dL POC Glucose (mg/dL) 123 H (70-110) mg/dL 01/08/24 Range/Units 11:34 WBC (3.8-10.6) k/uL RBC (4.30-5.90) m/uL Hgb (13.0-17.5) gm/dL Hct (39.0-53.0) % MCV (80.0-100.0) fL RDW (11.5-15.5) % Neutrophils # (1.3-7.7) k/uL Macrocytosis Sodium (137-145) mmol/L Chloride (98-107) mmol/L Carbon Dioxide (22-30) mmol/L BUN (9-20) mg/dL Creatinine (0.66-1.25) mg/dL POC Glucose (mg/dL) 132 H (70-110) mg/dL Assessment and Plan (1) Positive blood culture Current Visit: Yes Status: Acute Priority: High Code(s): R78.81 - BACTEREMIA SNOMED Code(s): 068749687 (2) Leukocytosis Current Visit: No Status: Acute Code(s): D72.829 - ELEVATED WHITE BLOOD CELL COUNT, UNSPECIFIED SNOMED Code(s): 420911632 Plan: 1patient with a positive blood culture with staph epi will likely significant admission of the patient no clinical disease to go along with it and there is no need for any vancomycin blood culture has been repeated document clearance and so far negative no need for vancomycin 2-patient with admission to hospital worsening shortness of breath possibly related to his underlying pulmonary fibrosis/tracheobronchitis, sputum has been April albicans 3-leukocytosis more likely steroid related, however sputum is growing April possible component of oropharyngeal candidiasis we will give him a dose of Diflucan and repeat a CBC tomorrow Dictation was produced using [employer] dictation software. please excuse any grammatical, word or spelling errors. Time with Patient: Less than 30
--- NOTE | 2024-01-08 15:14 | P.PN ---
Subjective Progress Note Date: 01/08/24 Patient is a 63-year-old white male with past medical history significant for advanced pulmonary fibrosis and restrictive lung disease treated with Ofev, previous ventilator dependent respiratory failure, alcoholism. Patient did have a recent prolonged and complicated hospitalization 12/16/2023 through 12/28/2023. He was treated for aspiration pneumonia. He did undergo a swallow evaluation showed aspiration with various consistencies. He did have a a PEG tube placed 12/26/2023. Patient returned to the emergency room yesterday afternoon complaining of severe weakness. He has no other specific complaints. He denies any change in his chronic shortness of breath. He does have a chronic cough. Currently, he is producing some clear sputum. No fevers. No chest pain. A follow-up chest x-ray showed chronic lung changes with low lung volumes and mild bibasilar atelectasis. Improvement in the patient's previous consolidative lung infiltrates. There is abnormal gas pattern suggestive of po ssible obstruction or severe ileus. This was followed up with an abdominal and pelvis CT which showed a likely nonobstructive bowel gas pattern. Patient is currently lying in bed on 4 L/min nasal cannula, in no acute distress. He actually has no specific complaints other than generalized and severe weakness. He has had to use a wheelchair to get around. His daughter and son-in-law have moved in to help him. He has been using his PEG tube for bolus feeding. Denies nausea, vomiting, abdominal pain. He has had loose bowel movements. He has not been able to take his Ofev, he states that senior java ui developer does not recommend crushing and putting through PEG tube. An ABG was done in the emergency room, which showed a component of compensated chronic hypercapnic respiratory failure. CBC on arrival: WBC count 22, hemoglobin 16.3, hematocrit 50.3, platelets 395. CMP on arrival: Sodium 133, potassium 5.2, chloride 84, serum bicarb 39, BUN 30, creatinine 0.69, glucose 157. Lactic acid level 2.7 down to 1.7. LFTs mildly elevated. Troponin 0.015. NT proBNP 527. In the emergency room, the patient was continued on Zosyn. Currently afebrile. Hemodynamically stable. The patient was seen today and the patient is currently on 40s of oxygen by nasal cannula. He continues to have some cough and congestion.The patient blood work shows leukocytosis with a white cell count of 25 which is slightly higher compared to yesterday with a hemoglobin of 13.5 which is lower compared to yesterday. Platelet counts are stable at 313. The patient is having normal renal function with a BUN of 22 and a creatinine of 0.6 and sodium levels at 132. Procalcitonin level came back at 0.08. The scleroderma antibodies are negative. RUBY was also negative. I reviewed the CAT scan of the abdomen and p carlos and the CAT scan shows chronic scarring and bronchiectatic change in lung bases. Prominent pulmonary arteries consistent with pulm hypertension. Rest of the intra-abdominal structures were essentially within normal limits and the PEG tube is in a good location. There are some nonspecific bowel gas pattern without any evidence of any obstruction or small bowel dilatation. As for the chest x-ray that was done at time of admission, it shows a smaller lung volumes, some atelectatic changes and chronic scarring lung base bilaterally consistent with with his underlying pulmonary fibrosis. Aspiration was suspected and the patient remains on IV Zosyn. Patient is also on DuoNeb nebulized treatments [id number]. The patient is on IV Solu-Medrol 60 mg every 6 hours. Rest of the home medication have been resumed. The patient on Lovenox for DVT prophylaxis. On 01/03/2024, the patient is being seen for a follow-up. The patient is feeling better on today's evaluation. The patient is down to 2 L of oxygen by nasal cannula which is his baseline oxygen requirements. Denies having any chest pain. No other significant events overnight. The white cell count remains elevated at 25.5 with a hemoglobin 8.6 and a platelet count of 314. BUN is at 31 with a creatinine of 0.7 and sodium levels at 132. Procalcitonin level was low at 0.08. The patient remains on DuoNeb updrafts. The patient remains on IV Solu-Medrol 60 mg every 6 hours. The patient remains on IV Zosyn which is essentially empiric antibiotic coverage. Blood cultures are negative thus far. The patient was also started on enteral feeding for nutritional support and the patient is currently on Jevity 1.2 at the rate of 42 cc an hour. Overnight, the patient is in a episode of hypotension with a systolic blood pressure in the low 70s. The patient was given a liter bolus and currently is normotensive. Denies having any chest pain. No altered mentation. No chest pain. No other significant events otherwise. On today's evaluation of 01/04/2024, the patient is doing well. No specific complaints. Feeling better and stronger compared to yesterday. He is on 2 L of oxygen by nasal cannula with a pulse ox of 99%. Afebrile. Hemodynamically stable. White cell count is at 25 which remains elevated and I think this is partly related to steroids. I am going to discontinue the IV Solu-Medrol and the patient will be started on oral prednisone. White cell count is stable at 8.9. This is stable compared to yesterday. Nevertheless, the patient experienced a significant drop in the hemoglobin since his previous admissions. No evidence of any GI bleeding at this point in time. PEG tube site is clean and the patient is having enteral feeding for nutritional support. No reported aspiration at this point in time. Microbiology from the blood cultures showing gram-positive cocci in clusters and this is consistent with coagulase-negative staph. BUN is at 26 with a creatinine of 0.7 and a sodium levels at 132 with a potassium level of 5.2.This patient did not show any signs of any GI bleeding. He did encounter a brief episode of hypotension 48 hours ago and this recovered with IV fluids and he has been normotensive since. He is feeling fine. Hemoglobin is being monitored. On today's evaluation of 01/05/2024, no new complaints. The patient was encouraged improving and the patient's white count down to 16.7, it was at 7.9, and a platelet count is at 275. He is afebrile. Currently on 3 Suboxone by nasal cannula with a pulse ox of 99%. Continues to receive enteral feeding for nutritional support. Clearance was given to swallow his Ofev tablets regarding his IPF. Is currently on prednisone burst taper starting with 40 mg. Remains on DuoNeb updrafts. Rest of the medication remains unchanged. No altered mentation for now. The patient has developed some acute drop in hemoglobin down to 7.9. The hemoglobin has been steadily dropping since admission. No signs of any acute bleeding. Medical team is aware of the drop in hemoglobin this is being monitored very closely. On today's evaluation of 01/06/2024, the patient is being seen for a follow-up. No significant change in his respiratory status. The patient's hemoglobin is still downtrending is currently down to 7.5. Hematology oncology is on the case. The white cell count at 13.6. Platelet count 300. Sodium is at 129 with a BUN of 21 and creatinine of 0.6. The patient does have a sputum sample is positive for April and the blood cultures positive for Staph epidermidis. The patient has advanced pulmonary fibrosis. The patient also has chronic dysphagia utilizing PEG tube feeding for enteral feeding and nutritional support. Hematology oncology is evaluating this patient regarding the ongoing anemia. No evidence of any acute bleeding. His reticulocyte count has been low. Vitamin B12 has been normal and the patient is on folic acid supplements. Hemoglobin is being monitored. On today's evaluation of 01/07/2024, the patient is being seen for a follow-up. No new complaints. Hemoglobin is stable at 9.4. BUN is at 21 with a creatinine of 0.6 and sodium levels at 132. Oxygenation is also stable at 3 L with a pulse ox of 98%. Continues to receive enteral feeding for nutritional support. The patient has no new complaints. The patient completed the course of IV Zosyn. Currently on antibiotic coverage. White cell count is at 16. Tolerating enteral feeding for nutritional support. No reported aspiration. No other new complaints otherwise for now. Hemoglobin is being monitored and current hemoglobin is up to 9.4. On today's evaluation of 01/08/2024, the patient has no specific complaints. He is on 3 L of oxygen by nasal cannula. Antibiotic course has been completed. He is also on a course of a prednisone burst taper currently on 40 mg. Receiving enteral feeding for nutritional support. Tolerating the diet. Labs are all stable. The white cell count is at 19 and the white cell count continues to fluctuate. Hemoglobin is 9.4 with a platelet count of 16. No significant drop in hemoglobin over the past 48 hours. BUN is at 23 with a creatinine 0.6 and a sodium levels at 134. The patient is scheduled to undergo EGD and colonoscopy for anemia in a.m. Objective - Vital Signs Vital signs: Vital Signs Temp 97.8 F 01/08/24 07:00 Pulse 87 01/08/24 07:00 Resp 17 01/08/24 07:00 BP 117/78 01/08/24 07:00 Pulse Ox 98 01/08/24 08:50 FiO2 Intake & Output 01/07/24 01/08/24 01/08/24 18:59 06:59 18:59 Intake Total 350 Output Total 700 300 Balance -350 -300 Weight 49.4 kg Intake: Tube Feeding 350 Output: Urine 700 300 Other: Voiding Method Urinal # Voids 2 - Exam GENERAL EXAM: Alert, 63-year-old white male, pleasant, cachectic, comfortable in no apparent distress. Requires assistance to sit up in bed. The patient is currently on 3 L of oxygen nasal cannula HEAD: Normocephalic and atraumatic EYES: Normal reaction of pupils, equal size. NOSE: Clear with pink turbinates. THROAT: No erythema or exudates. NECK: No masses, no JVD. CHEST: No chest wall deformity. LUNGS: Equal air entry with inspiratory bibasilar Velcro crackles. . No conversational dyspnea or accessory muscle use while at rest. CVS: S1 and S2 normal with no audible murmur, regular rhythm. No extra heart sounds ABDOMEN: No hepatosplenomegaly, active bowel sounds, no guarding or rigidity. PEG tube site clean, dry, without any drainage. SPINE: No scoliosis or deformity SKIN: No rashes CENTRAL NERVOUS SYSTEM: No focal deficits, tone is normal in all 4 extremities. EXTREMITIES: There is no peripheral edema, clubbing, or cyanosis. Peripheral pulses are intact. - Labs CBC & Chem 7: 01/08/24 06:42 01/08/24 06:42 Labs: Abnormal Lab Results - Last 24 Hours (Table) 01/07/24 01/08/24 01/08/24 Range/Units 11:59 01:43 06:42 WBC 19.6 H (3.8-10.6) k/uL RBC 2.70 L (4.30-5.90) m/uL Hgb 9.4 L (13.0-17.5) gm/dL Hct 29.2 L (39.0-53.0) % MCV 108.1 H (80.0-100.0) fL RDW 16.3 H (11.5-15.5) % Neutrophils # 16.4 H (1.3-7.7) k/uL Macrocytosis Marked A Sodium (137-145) mmol/L Chloride (98-107) mmol/L Carbon Dioxide (22-30) mmol/L BUN (9-20) mg/dL Creatinine (0.66-1.25) mg/dL POC Glucose (mg/dL) 139 H 123 H (70-110) mg/dL 01/08/24 Range/Units 06:42 WBC (3.8-10.6) k/uL RBC (4.30-5.90) m/uL Hgb (13.0-17.5) gm/dL Hct (39.0-53.0) % MCV (80.0-100.0) fL RDW (11.5-15.5) % Neutrophils # (1.3-7.7) k/uL Macrocytosis Sodium 134 L (137-145) mmol/L Chloride 90 L (98-107) mmol/L Carbon Dioxide 36 H (22-30) mmol/L BUN 23 H (9-20) mg/dL Creatinine 0.61 L (0.66-1.25) mg/dL POC Glucose (mg/dL) (70-110) mg/dL Assessment and Plan Plan: Acute on chronic hypoxemic respiratory failure, follow-up chest x-ray shows i mprovement in the patient's previous superimposed lung consolidations. There are chronic lung changes with low lung volumes and mild bibasilar atelectasis versus scarring. The patient's oxygenation is stable and the patient is currently on 3 L O2 nasal cannula. Suspect chemical pneumonitis. Procalcitonin level is nonelevated. Clinically stable. Monitor for worsening shortness of breath. White cell count is down to 16 completed course of IV Zosyn Recent hospital admission for suspected aspiration pneumonia, completed the course of IV Zosyn Acute leukocytosis, improving and the white cell count is down to 16 Acute drop in hemoglobin. No evidence of any GI bleeding. Hemoglobin is gwendolyn at 9.4 Interstitial pulmonary fibrosis, previously maintained on Ofev, unable to take the medication as the medication is not crushable through the PEG tube. Chronic hypoxemic respiratory failure, secondary to above, normally maintained on 3 L/min nasal cannula Chronic hypercapnic respiratory failure Severe generalized weakness and deconditioning Severe protein calorie malnutrition Dysphagia, status post PEG tube insertion on 12/26/2023, has been giving himself bolus feeds at home. History of alcoholism Osteoarthritis Chronic back pain Plan: Patient is scheduled to undergo EGD and colonoscopy in a.m. Overall respiratory status is stable and the patient remains on 3 L of O2 nasal cannula Monitor the hemoglobin currently at 9.4, no significant drop in hemoglobin over the past 48 hours Aspiration precautions Continue supplemental oxygen Completed the course of IV Zosyn Continue prednisone 40 mg p.o. daily. This is part of burst taper Should be able to take IPF medication, Ofev orally. The patient was started on Jevity which is running at 47 cc an hour. Monitor the hemoglobin Monitor the white cell count Overall prognosis is guarded related to above-mentioned comorbidities.
[2024-01-08] MEDS: FLUCONAZOLE 100 MG TAB PO ONE (16:53)
[2024-01-08 18:55] LABS: Glucose,Whole Blood 122 mg/dL (70-110)
[2024-01-09 01:01] LABS: Glucose,Whole Blood 134 mg/dL (70-110)
[2024-01-09] MEDS ORDERED: PROPOFOL 10 MG/ML 20 ML VIAL IV ONE (10:22)
[2024-01-09] MEDS ORDERED: LIDOCAINE 1% INJ 10MG/ML (20 ML MDV) ONE (10:22)
[2024-01-09] MEDS: LACTATED RINGERS 1,000 ML IV ONE ×2 (10:27→10:56)
--- NOTE | 2024-01-09 10:39 | P.PCN ---
Date of Procedure: 01/09/24 Description of Procedure: PREOPERATIVE DIAGNOSIS: Acute blood loss anemia Underweight, BMI 16.1 Pulmonary fibrosis Gastrostomy tube status POSTOPERATIVE DIAGNOSIS: Acute blood loss anemia Gastrostomy tube status Gastritis without bleeding OPERATION: Esophagogastroduodenoscopy SURGEON: Kathryn Young MD ANESTHESIA: MAC. INDICATIONS: The patient is a 63-year-old male who presents with acute blood loss anemia. Benefits and risks of the procedure were described. Informed consent was obtained. DESCRIPTION: The patient was brought into the endoscopy suite and laid in the left lateral decubitus position. An Olympus gastroscope was passed along the posterior oropharynx down to the distal esophagus where the squamocolumnar junction was encountered at 35 cm from the incisors. The stomach was entered and no bile reflux was found. Additional findings are listed below. The first through third portion of the duodenum was examined and unremarkable. Gastrostomy tube was intact without bleeding. Retroflexion of the scope confirmed Hill grade 2 lower esophageal valve. The squamocolumnar junction demonstrated LA grade B erosive esophagitis. The stomach was desufflated. The patient tolerated the procedure well. FINDINGS: Squamocolumnar junction 35 cm from the incisors. Diaphragmatic hiatus at 35 cm. Hill grade 2 lower esophageal valve. Gastrostomy tube within normal limits LA grade B erosive esophagitis. No active duodenitis. No stigmata of bleeding RECOMMENDATIONS: 1. Resume tube feeds 2. Upper endoscopy as needed
--- NOTE | 2024-01-09 11:03 | P.PCN ---
Date of Procedure: 01/09/24 Description of Procedure: PREOPERATIVE DIAGNOSIS: Acute blood loss anemia Underweight, BMI 16.1 POSTOPERATIVE DIAGNOSIS: Sigmoid diverticulosis OPERATION: Colonoscopy SURGEON: Kathryn Young MD. ANESTHESIA: MAC. INDICATIONS: The patient is a 84-year-old male who presents with close anemia of unclear etiology. Benefits and risks were described and informed consent was obtained. DESCRIPTION OF PROCEDURE: The patient had undergone attempted Golytely prep 4 L. The patient had been brought into the operating room and laid in the left lateral decubitus position. After adequate intravenous sedation, the rectum was examined with 2% lidocaine jelly. No prolapse internal hemorrhoids with ulceration, recent inflammation and minimal bleeding was found. The rectal tone was tight. An Olympus colonoscope was gently advanced to redundant sigmoid colon. The prep was fair. Sigmoid diverticulosis was encountered without active bleeding. No active colonic bleeding was found. No intraluminal masses were identified within the colon. No colonic polyps were found. No evidence of focal colitis was found. Retroflexion of the scope demonstrated grade 2 internal hemorrhoids with recent inflammation. The colon was desufflated. The patient had tolerated the procedure well. Withdrawal time was over 6 minutes. FINDINGS: Aronchick preparation quality scale 3 (1-5) Internal hemorrhoids, grade 2 No thrombosed hemorrhoid identified. No arteriovenous malformations. No adenomatous polyps. No focal colitis. Sigmoid diverticulosis RECOMMENDATIONS: 1. May resume tube feed 2. Monitor hemoglobin Plan - Discharge Summary Discharge Rx Participant: No New Discharge Prescriptions: No Action Melatonin 1.5 mg PEG/G-TUBE HS Acetaminophen Oral Susp [Tylenol] 640 mg PEG/G-TUBE Q4-6H PRN PRN Reason: Pain predniSONE See Taper PEG/G-TUBE DIRECTED Morphine Sulfate 15 mg PEG/G-TUBE Q6H Folic Acid 1 mg PEG/G-TUBE DAILY Citalopram Hydrobromide [CeleXA] 40 mg PEG/G-TUBE DAILY busPIRone HCL [Buspar] 7.5 mg PEG/G-TUBE BID Medihoney 80% Gel 1 applic TOPICAL DAILY Metoprolol Tartrate [Lopressor] 12.5 mg PEG/G-TUBE BID guaiFENesin [guaiFENesin Oral Solution] 400 mg PEG/G-TUBE BID Nintedanib Esylate [Ofev] 150 mg PO DIRECTED Losartan [Cozaar] 50 mg PEG/G-TUBE DAILY ALPRAZolam [Xanax] 0.5 mg PEG/G-TUBE TID Discharge Medication List Citalopram Hydrobromide [CeleXA] 40 mg PEG/G-TUBE DAILY 03/25/21 [History] busPIRone HCL [Buspar] 7.5 mg PEG/G-TUBE BID 10/14/23 [History] Medihoney 80% Gel 1 applic TOPICAL DAILY 12/17/23 [History] ALPRAZolam [Xanax] 0.5 mg PEG/G-TUBE TID 01/01/24 [History] Acetaminophen Oral Susp [Tylenol] 640 mg PEG/G-TUBE Q4-6H PRN 01/01/24 [History] Folic Acid 1 mg PEG/G-TUBE DAILY 01/01/24 [History] Losartan [Cozaar] 50 mg PEG/G-TUBE DAILY 01/01/24 [History] Melatonin 1.5 mg PEG/G-TUBE HS 01/01/24 [History] Metoprolol Tartrate [Lopressor] 12.5 mg PEG/G-TUBE BID 01/01/24 [History] Morphine Sulfate 15 mg PEG/G-TUBE Q6H 01/01/24 [History] Nintedanib Esylate [Ofev] 150 mg PO DIRECTED 01/01/24 [History] guaiFENesin [guaiFENesin Oral Solution] 400 mg PEG/G-TUBE BID 01/01/24 [History] predniSONE See Taper PEG/G-TUBE DIRECTED 01/01/24 [History] Follow up Appointment(s)/Referral(s): Brian Arzola DO [Primary Care Provider] - 1-2 days [facility], [NON-STAFF] - [facility], [REFERRING] -
[2024-01-09] MEDS: ARTIFICIAL TEARS-HYPROMELLOSE DROPS 15 ML BTL LEFT EYE SCH (11:43)
[2024-01-09 12:08] LABS: Glucose,Whole Blood 89 mg/dL (70-110)
--- NOTE | 2024-01-09 12:40 | P.PN ---
Subjective Progress Note Date: 01/09/24 Principal diagnosis: Reason for follow-up is positive blood culture and leukocytosis Patient is a 63-year-old male with a past medical history significant for pulmonary fibrosis EtOH abuse DTs, recently prolonged stay for aspiration pneumonia and cardiac PEG tube presenting back to the hospital with worsening shortness of breath did have a positive blood culture prompting this consultation. On today's visit that is 01/09/2024,the patient remains to be afebrile, patient is on 3 L nasal cannula supplemental oxygen however denies any shortness of breath no chest pain or any worsening cough.Patient denies having any nausea or vomiting, complaining of some abdominal discomfort after EGD and colonoscopy. No new labs has been obtained today cultures has been negative Objective - Vital Signs Vital signs: Vital Signs Temp 97.9 F 01/09/24 08:00 Pulse 96 01/09/24 08:00 Resp 18 01/09/24 08:00 BP 104/61 01/09/24 08:00 Pulse Ox 98 01/09/24 08:00 FiO2 Intake & Output 01/08/24 01/09/24 01/09/24 18:59 06:59 18:59 Intake Total 200 100 Output Total 300 800 Balance -100 -800 100 Intake: IV 100 Tube Feeding 200 Output: Urine 300 800 Other: # Voids 3 # Bowel Movements 4 - Exam GENERAL DESCRIPTION: Middle-age male up in bed in no distress RESPIRATORY SYSTEM: Unlabored breathing , decreased breath sounds at bases HEART: S1 S2 regular rate and rhythm , ABDOMEN: Soft , no tenderness EXTREMITIES: No edema feet - Labs CBC & Chem 7: 01/08/24 06:42 01/08/24 06:42 Labs: Abnormal Lab Results - Last 24 Hours (Table) 01/08/24 01/09/24 Range/Units 18:54 00:59 POC Glucose (mg/dL) 122 H 134 H (70-110) mg/dL Microbiology - Last 24 Hours (Table) 01/03/24 16:55 Blood Culture - Final Blood 01/03/24 15:00 Blood Culture - Final Blood Assessment and Plan (1) Positive blood culture Current Visit: Yes Status: Acute Priority: High Code(s): R78.81 - BACTEREMIA SNOMED Code(s): 488009036 (2) Leukocytosis Current Visit: No Status: Acute Code(s): D72.829 - ELEVATED WHITE BLOOD CELL COUNT, UNSPECIFIED SNOMED Code(s): 836864192 Plan: 1patient with a positive blood culture with staph epi will likely significant admission of the patient no clinical disease to go along with it and there is no need for any vancomycin blood culture has been repeated document clearance and so far negative no need for vancomycin 2-patient with admission to hospital worsening shortness of breath possibly related to his underlying pulmonary fibrosis/tracheobronchitis, sputum has been April albicans 3-leukocytosis more likely steroid related, however sputum is growing April possible component of oropharyngeal candidiasis, he did receive a dose of Diflucan yesterday currently waiting for the CBC from this morning to see the need for any further antifungal therapy Dictation was produced using [employer] dictation software. please excuse any grammatical, word or spelling errors. Time with Patient: Less than 30
--- NOTE | 2024-01-09 13:50 | P.PN ---
Subjective Progress Note Date: 01/09/24 Hospital course: Patient is a very pleasant 63-year-old male with a past medical history of pulmonary fibrosis with chronic respiratory failure on 3 and half liters nasal cannula at home, hypertension, and previous history of EtOH abuse. He presented to the emergency department 01/01/2024 for a chief complaint of chills, shakes, and generalized weakness. Patient underwent evaluation in the ER. Vital signs upon arrival patient was afebrile with a temp of 97.7 F, 139/80, heart rate 101, respiratory rate 26, and SpO2 of 84% on 5 L increasing to 100% on 6 L of nasal cannula. EKG completed showing sinus rhythm at 87 bpm with peaked T waves. Chest x-ray showing chronic lung changes with low lung volumes and mild bibasilar subsegmental atelectasis versus scarring and abnormal bowel gas pattern suggestive of possible obstruction or ileus. CT abdomen and pelvis with contrast then completed showing overall nonspecific but felt to be nonobstructive bowel gas pattern. Labs completed and reviewed. CBC showing WBC count of 22.2. ABG revealing metabolic alkalosis with pH of 7.47, pCO2 of 57, pO2 212, bicarb of 41, total CO2 of 43, and O2 sat of 99.3. BMP revealing hyponatremia with sodium of 133, hyperkalemia with potassium of 5.2, and consistent with metabolic acidosis with chloride of 84, bicarb of 39, and anion gap of 10. BUN also elevated at 30. Lactic acid 2.4. Magnesium 1.9. Liver profile showing transaminitis with AST of 60, ALT of 105, and alkaline phosphatase of 170. Troponin 0.015. proBNP 527. Patient admitted under services for acute on chronic respiratory failure with hypoxia and sepsis with consultation to pulmonology at this time. Procalcitonin negative. Leukocytosis is persistent. Microbiology showed blood cultures positive for GPC in clusters, staph epi likely contaminant. IV Zosyn discontinued. Repeat blood cultures negative. Patient became anemic with hemoglobin dropping from 13.5 down to 8.9, likely from hypoproliferation. However continued to go down and patient has symptoms secondary to this acute anemia. Hematology evaluated and concerned for GI bleed, and general surgery was consulted. General surgery evaluated and taking patient for EGD and colonoscopy today. Physical exam: Patient seen and fully evaluated at bedside this morning. Patient was resting comfortably, easily awoken via verbal stimuli. He is currently awaiting to go down for EGD and colonoscopy today. He reports feeling better today more full of energy and currently denies having any pain or discomfort. Vital signs reviewed and stable. General: Nontoxic, no distress and appears stated age. Thin and frail. Derm: Skin warm and dry, pallor present. Head: Atraumatic, normocephalic and symmetric. Eyes: EOMs intact, no lid lag, and anicteric sclera Mouth: no lip lesions, mucus membranes moist Cardiovascular: regular rate and rhythm with normal S1S2, no murmur, positive posterior tibial pulses bilaterally, and cap refill < 2 seconds. Lungs: Respirations even, regular, and unlabored on 3 L O2 via nasal cannula. Lungs diminished with soft expiratory wheezes. No rhonchi, no rales, no wheezing. No accessory muscle usage. Abdominal: soft, nontender to palpation, no guarding, no appreciable organomegaly. Gastric tube present. Ext: ROM intact. No gross muscle atrophy, no edema, no contractures Neuro: Speech clear, face symmetrical and CN II-XII grossly intact with no noted focal neuro deficits Psych: Alert and oriented to person, place, time, and situation. Appropriate and pleasant affect. Assessment and Plan of Care: Patient presented to the emergency department on 01/01/2024 with a chief complaint of chills, shakes, generalized weakness. He was found to have Sepsis upon arrival with lactic acid of 2.7, heart rate 101, respiratory rate 26, and WBC count of 22.2 as well as to be in acute on chronic respiratory failure with hyp oxia with heart rate elevated at 101, respiratory rate elevated at 26, and SpO2 of 84% on 5 L O2. On 01/03/2024 patient became anemic with hemoglobin dropping from 13.5 down to 8.9, hematology and general surgery evaluated. General surgeon taking patient for EGD and colonoscopy later today. Acute on chronic respiratory failure with hypoxia Pulmonary fibrosis with chronic respiratory failure Recurrent aspiration, PEG tube dependent Sepsis upon arrival with lactic acid of 2.7, heart rate 101, respiratory rate 26, and WBC count of 22.2. Leukocytosis, possibly secondary to aspiration versus steroid induced Acute macrocytic anemia, bone marrow suppression versus GI bleed -Acute on chronic respiratory failure improved, patient on baseline oxygen needs 3 L -Pulmonology following, reviewed documentation in chart. -Infectious disease following, reviewed documentation in chart. -Patient to continue with DuoNebs every 2 hours as needed for shortness of breath and/or wheezing. -Hemoglobin stable at 9.4 and leukocytosis remains with WBC count 19.6 -Hematology evaluated, recommended GI workup to rule out GI bleed -General surgery following, taking patient for EGD and colonoscopy later today. -Continue to monitor CBC closely and transfuse if needed for hemoglobin less than 7 Aphthous ulcer. Status post Orajel Staph epi bacteremia, contaminant. Repeat blood cultures x 2 negative showing no growth. Severe protein calorie malnutrition. Continue tube feeds, dietitian following. Chronic back pain. Continue home pain medication regimen with morphine sulfate 15 mg via PEG tube every 6 hours as needed for pain. Monitor for sedation Mild hyponatremia. Improving. Hyperkalemia. Resolved. Anxiety and Depression. Continue daily medication regimen with BuSpar 7.5 mg twice daily, Celexa 40 mg daily, and Xanax 0.5 mg 3 times daily. Hypertension. Vital signs stable on current medication regimen. Patient to continue with losartan 50 mg daily and metoprolol 12.5 mg twice daily. Data and imaging reviewed: Morning labs pending. Will follow-up on results once available and place additional orders if indicated based upon these findings. Vital signs reviewed and stable. Blood pressure 104/61, heart rate 96, respiratory rate 18, temp 97.9 F, and SpO2 of 98% on 3 L. DVT ppx: Lovenox Code status: Full code Anticipated discharge place: Pending clinical course Anticipated discharge time: Pending clinical course Patient was seen independently by Nurse Pracitioner. This document was prepared using [employer] dictation software. Please allow for errors in video software engineer, while rare they do occur. I reviewed the documentation as provided by the STACY above, who is the original author of this note. I agree with the documented assessment and plan, with the following changes: none Objective - Vital Signs Vital signs: Vital Signs Temp 97.9 F 01/09/24 08:00 Pulse 96 01/09/24 08:00 Resp 18 01/09/24 08:00 BP 104/61 01/09/24 08:00 Pulse Ox 98 01/09/24 08:00 FiO2 Intake & Output 01/08/24 01/09/24 01/09/24 18:59 06:59 18:59 Intake Total 200 Output Total 300 800 Balance -100 -800 Intake: Tube Feeding 200 Output: Urine 300 800 Other: # Voids 3 # Bowel Movements 4 - Labs CBC & Chem 7: 01/12/24 08:26 01/12/24 08:26 Labs: Abnormal Lab Results - Last 24 Hours (Table) 01/08/24 01/08/24 01/08/24 Range/Units 06:42 11:34 18:54 Sodium 134 L (137-145) mmol/L Chloride 90 L (98-107) mmol/L Carbon Dioxide 36 H (22-30) mmol/L BUN 23 H (9-20) mg/dL Creatinine 0.61 L (0.66-1.25) mg/dL POC Glucose (mg/dL) 132 H 122 H (70-110) mg/dL 01/09/24 Range/Units 00:59 Sodium (137-145) mmol/L Chloride (98-107) mmol/L Carbon Dioxide (22-30) mmol/L BUN (9-20) mg/dL Creatinine (0.66-1.25) mg/dL POC Glucose (mg/dL) 134 H (70-110) mg/dL Microbiology - Last 24 Hours (Table) 01/03/24 16:55 Blood Culture - Final Blood 01/03/24 15:00 Blood Culture - Final Blood
[2024-01-09] MEDS: SIMETHICONE 40 MG/0.6 ML DROPS 2,000 MG/30 ML BOTTLE PEG/G-TUBE SCH (15:09)
--- NOTE | 2024-01-09 16:03 | P.PN ---
Subjective Progress Note Date: 01/09/24 Patient is a 63-year-old white male with past medical history significant for advanced pulmonary fibrosis and restrictive lung disease treated with Ofev, previous ventilator dependent respiratory failure, alcoholism. Patient did have a recent prolonged and complicated hospitalization 12/16/2023 through 0 12/28/2023. He was treated for aspiration pneumonia. He did undergo a swallow evaluation showed aspiration with various consistencies. He did have a a PEG tube placed 12/26/2023. Patient returned to the emergency room yesterday afternoon complaining of severe weakness. He has no other specific complaints. He denies any change in his chronic shortness of breath. He does have a chronic cough. Currently, he is producing some clear sputum. No fevers. No chest pain. A follow-up chest x-ray showed chronic lung changes with low lung volumes and mild bibasilar atelectasis. Improvement in the patient's previous consolidative lung infiltrates. There is abnormal gas pattern suggestive of pos sible obstruction or severe ileus. This was followed up with an abdominal and pelvis CT which showed a likely nonobstructive bowel gas pattern. Patient is currently lying in bed on 4 L/min nasal cannula, in no acute distress. He actually has no specific complaints other than generalized and severe weakness. He has had to use a wheelchair to get around. His daughter and son-in-law have moved in to help him. He has been using his PEG tube for bolus feeding. Denies nausea, vomiting, abdominal pain. He has had loose bowel movements. He has not been able to take his Ofev, he states that quality assurance monitor chassis does not recommend crushing and putting through PEG tube. An ABG was done in the emergency room, which showed a component of compensated chronic hypercapnic respiratory failure. CBC on arrival: WBC count 22, hemoglobin 16.3, hematocrit 50.3, platelets 395. CMP on arrival: Sodium 133, potassium 5.2, chloride 84, serum bicarb 39, BUN 30, creatinine 0.69, glucose 157. Lactic acid level 2.7 down to 1.7. LFTs mildly elevated. Troponin 0.015. NT proBNP 527. In the emergency room, the patient was continued on Zosyn. Currently afebrile. Hemodynamically stable. The patient was seen today and the patient is currently on 40s of oxygen by nasal cannula. He continues to have some cough and congestion.The patient blood work shows leukocytosis with a white cell count of 25 which is slightly higher compared to yesterday with a hemoglobin of 13.5 which is lower compared to yesterday. Platelet counts are stable at 313. The patient is having normal renal function with a BUN of 22 and a creatinine of 0.6 and sodium levels at 132. Procalcitonin level came back at 0.08. The scleroderma antibodies are negative. RUBY was also negative. I reviewed the CAT scan of the abdomen and pe lvis and the CAT scan shows chronic scarring and bronchiectatic change in lung bases. Prominent pulmonary arteries consistent with pulm hypertension. Rest of the intra-abdominal structures were essentially within normal limits and the PEG tube is in a good location. There are some nonspecific bowel gas pattern without any evidence of any obstruction or small bowel dilatation. As for the chest x-ray that was done at time of admission, it shows a smaller lung volumes, some atelectatic changes and chronic scarring lung base bilaterally consistent with with his underlying pulmonary fibrosis. Aspiration was suspected and the patient remains on IV Zosyn. Patient is also on DuoNeb nebulized treatments [id number]. The patient is on IV Solu-Medrol 60 mg every 6 hours. Rest of the home medication have been resumed. The patient on Lovenox for DVT prophylaxis. On 01/03/2024, the patient is being seen for a follow-up. The patient is feeling better on today's evaluation. The patient is down to 2 L of oxygen by nasal cannula which is his baseline oxygen requirements. Denies having any chest pain. No other significant events overnight. The white cell count remains elevated at 25.5 with a hemoglobin 8.6 and a platelet count of 314. BUN is at 31 with a creatinine of 0.7 and sodium levels at 132. Procalcitonin level was low at 0.08. The patient remains on DuoNeb updrafts. The patient remains on IV Solu-Medrol 60 mg every 6 hours. The patient remains on IV Zosyn which is essentially empiric antibiotic coverage. Blood cultures are negative thus far. The patient was also started on enteral feeding for nutritional support and the patient is currently on Jevity 1.2 at the rate of 42 cc an hour. Overnight, the patient is in a episode of hypotension with a systolic blood pressure in the low 70s. The patient was given a liter bolus and currently is normotensive. Denies having any chest pain. No altered mentation. No chest pain. No other significant events otherwise. On today's evaluation of 01/04/2024, the patient is doing well. No specific complaints. Feeling better and stronger compared to yesterday. He is on 2 L of oxygen by nasal cannula with a pulse ox of 99%. Afebrile. Hemodynamically stable. White cell count is at 25 which remains elevated and I think this is partly related to steroids. I am going to discontinue the IV Solu-Medrol and the patient will be started on oral prednisone. White cell count is stable at 8.9. This is stable compared to yesterday. Nevertheless, the patient experienced a significant drop in the hemoglobin since his previous admissions. No evidence of any GI bleeding at this point in time. PEG tube site is clean and the patient is having enteral feeding for nutritional support. No reported aspiration at this point in time. Microbiology from the blood cultures showing gram-positive cocci in clusters and this is consistent with coagulase-negative staph. BUN is at 26 with a creatinine of 0.7 and a sodium levels at 132 with a potassium level of 5.2.This patient did not show any signs of any GI bleeding. He did encounter a brief episode of hypotension 48 hours ago and this recovered with IV fluids and he has been normotensive since. He is feeling fine. Hemoglobin is being monitored. On today's evaluation of 01/05/2024, no new complaints. The patient was encouraged improving and the patient's white count down to 16.7, it was at 7.9, and a platelet count is at 275. He is afebrile. Currently on 3 Suboxone by nasal cannula with a pulse ox of 99%. Continues to receive enteral feeding for nutritional support. Clearance was given to swallow his Ofev tablets regarding his IPF. Is currently on prednisone burst taper starting with 40 mg. Remains on DuoNeb updrafts. Rest of the medication remains unchanged. No altered mentation for now. The patient has developed some acute drop in hemoglobin down to 7.9. The hemoglobin has been steadily dropping since admission. No signs of any acute bleeding. Medical team is aware of the drop in hemoglobin this is being monitored very closely. On today's evaluation of 01/06/2024, the patient is being seen for a follow-up. No significant change in his respiratory status. The patient's hemoglobin is still downtrending is currently down to 7.5. Hematology oncology is on the case. The white cell count at 13.6. Platelet count 300. Sodium is at 129 with a BUN of 21 and creatinine of 0.6. The patient does have a sputum sample is positive for April and the blood cultures positive for Staph epidermidis. The patient has advanced pulmonary fibrosis. The patient also has chronic dysphagia utilizing PEG tube feeding for enteral feeding and nutritional support. Hematology oncology is evaluating this patient regarding the ongoing anemia. No evidence of any acute bleeding. His reticulocyte count has been low. Vitamin B12 has been normal and the patient is on folic acid supplements. Hemoglobin is being monitored. On today's evaluation of 01/07/2024, the patient is being seen for a follow-up. No new complaints. Hemoglobin is stable at 9.4. BUN is at 21 with a creatinine of 0.6 and sodium levels at 132. Oxygenation is also stable at 3 L with a pulse ox of 98%. Continues to receive enteral feeding for nutritional support. The patient has no new complaints. The patient completed the course of IV Zosyn. Currently on antibiotic coverage. White cell count is at 16. Tolerating enteral feeding for nutritional support. No reported aspiration. No other new complaints otherwise for now. Hemoglobin is being monitored and current hemoglobin is up to 9.4. On today's evaluation of 01/08/2024, the patient has no specific complaints. He is on 3 L of oxygen by nasal cannula. Antibiotic course has been completed. He is also on a course of a prednisone burst taper currently on 40 mg. Receiving enteral feeding for nutritional support. Tolerating the diet. Labs are all stable. The white cell count is at 19 and the white cell count continues to fluctuate. Hemoglobin is 9.4 with a platelet count of 16. No significant drop in hemoglobin over the past 48 hours. BUN is at 23 with a creatinine 0.6 and a sodium levels at 134. The patient is scheduled to undergo EGD and colonoscopy for anemia in a.m. The patient is seen today January 09, 2024 in follow-up on the regular medical floor. He is currently awake and alert in no acute distress. Resting fairly comfortably in bed. Denies any worsening shortness of breath, cough or congestion. He is maintaining good O2 saturations in the upper 90s on 3 L/min per nasal cannula. He is afebrile. Hemodynamically stable. He did undergo EGD and colonoscopy this morning. He was found to have some gastritis without active bleeding. He was also found to have sigmoid diverticulosis but no active bleeding. Blood sugar 89. Most recent hemoglobin 9.4. He remains on bronchodilators and prednisone. Objective - Vital Signs Vital signs: Vital Signs Temp 98.9 F 01/09/24 14:00 Pulse 89 01/09/24 14:00 Resp 18 01/09/24 14:00 BP 86/53 01/09/24 14:00 Pulse Ox 99 01/09/24 14:00 FiO2 Intake & Output 01/08/24 01/09/24 01/09/24 18:59 06:59 18:59 Intake Total 200 100 Output Total 300 800 Balance -100 -800 100 Weight 49.4 kg Intake: IV 100 Tube Feeding 200 Output: Urine 300 800 Other: # Voids 3 # Bowel Movements 4 - Exam GENERAL EXAM: Alert, 63-year-old male, cachectic, comfortable in no apparent distress. The patient is currently on 3 L of oxygen nasal cannula HEAD: Normocephalic and atraumatic EYES: Normal reaction of pupils, equal size. NOSE: Clear with pink turbinates. THROAT: No erythema or exudates. NECK: No masses, no JVD. CHEST: No chest wall deformity. LUNGS: Equal air entry with inspiratory bibasilar Velcro crackles. No conversational dyspnea or accessory muscle use while at rest. CVS: S1 and S2 normal with no audible murmur, regular rhythm. No extra heart sounds ABDOMEN: No hepatosplenomegaly, active bowel sounds, no guarding or rigidity. PEG tube site clean, dry, without any drainage. SPINE: No scoliosis or deformity SKIN: No rashes CENTRAL NERVOUS SYSTEM: No focal deficits, tone is normal in all 4 extremities. EXTREMITIES: There is no peripheral edema, clubbing, or cyanosis. Peripheral pulses are intact. - Labs CBC & Chem 7: 01/08/24 06:42 01/08/24 06:42 Labs: Abnormal Lab Results - Last 24 Hours (Table) 01/08/24 01/09/24 Range/Units 18:54 00:59 POC Glucose (mg/dL) 122 H 134 H (70-110) mg/dL Microbiology - Last 24 Hours (Table) 01/03/24 16:55 Blood Culture - Final Blood 01/03/24 15:00 Blood Culture - Final Blood Assessment and Plan Assessment: Acute on chronic hypoxemic respiratory failure, follow-up chest x-ray shows improvement in the patient's previous superimposed lung consolidations. There are chronic lung changes with low lung volumes and mild bibasilar atelectasis versus scarring. The patient's oxygenation is stable and the patient is curre ntly on 3 L O2 nasal cannula. Suspect chemical pneumonitis. Procalcitonin level is nonelevated. Clinically stable. Monitor for worsening shortness of breath. White cell count 19, completed course of Zosyn Recent hospital admission for suspected aspiration pneumonia, completed Zosyn Acute leukocytosis, improving and the white cell count is down to 19 Acute drop in hemoglobin. No evidence of any GI bleeding. Hemoglobin is 9.4. EGD and colonoscopy today January 09, 2024 revealed no active bleeding Interstitial pulmonary fibrosis, previously maintained on Ofev, unable to take the medication as the medication is not crushable through the PEG tube Chronic hypoxemic respiratory failure, secondary to above, normally maintained on 3 L/min nasal cannula Chronic hypercapnic respiratory failure Severe generalized weakness and deconditioning Severe protein calorie malnutrition Dysphagia, status post PEG tube insertion on 12/26/2023, has been giving himself bolus feeds at home. History of alcoholism Osteoarthritis Chronic back pain Plan: The patient was seen and evaluated EGD and colonoscopy reports reviewed No active bleeding Stable and on 3 L nasal cannula Continue bronchodilators, steroids We will continue to follow I have personally seen and examined the patient, performed the documentation and the assessment and plan as written. Number of minutes spent on the visit: 10.
[2024-01-09 17:00] LABS: Glucose,Whole Blood 184 mg/dL (70-110)
[2024-01-09 20:04] LABS: MCH 34.5 pg (27.0-32.0); MCV 107.8 FL (80.0-97.0); Mean Platelet Volume 10.5 FL (9.5-12.2); NRBC Per 100 WBC 0 X 10*3/uL (0.00-0.01); Platelet Count 341 X 10*3/uL (140-440); RBC 2.32 X 10*6/uL (4.40-5.60); RDW 16.6 % (11.5-14.5); WBC 17.42 X 10*3/uL (4.50-10.00)
[2024-01-09 20:32] LABS: Basophils # (A) 0.01 X 10*3/uL (0.00-0.10); Basophils % (A) 0.1 %; Eosinophils # (A) 0.03 X 10*3/uL (0.04-0.35); Eosinophils % (A) 0.2 %; Lymphocytes # (A) 0.47 X 10*3/uL (0.90-5.00); Lymphocytes % (A) 2.7 %; Monocytes # (A) 0.47 X 10*3/uL (0.20-1.00); Monocytes % (A) 2.7 %; Neutrophils # (A) 16.36 X 10*3/uL (1.80-7.70); Neutrophils % (A) 93.8 %; RBC Morphology Normal (Normal)
[2024-01-09 21:28] LABS: BUN/Creat Ratio 29.71 Ratio (12.00-20.00); Blood Urea Nitrogen 20.8 mg/dL (9.0-27.0); Chloride 92 mmol/L (96-109); Glucose 131 mg/dL (70-110); Potassium 4.9 mmol/L (3.5-5.5); Sodium 135 mmol/L (135-145)
[2024-01-10 01:11] LABS: Glucose,Whole Blood 130 mg/dL (70-110)
[2024-01-10 05:08] LABS: Methylmalonic Acid 0.39 umol/L (<0.40)
[2024-01-10 06:06] LABS: Glucose,Whole Blood 141 mg/dL (70-110)
[2024-01-10 07:22] LABS: ALT 27 U/L (4-49); AST 24 U/L (17-59); African American GFR (CKD) >90 (>60 ml/min/1.73 sqM); Albumin 2.8 g/dL (3.5-5.0); Albumin/Globulin Ratio 1.1; Alkaline Phosphatase 90 U/L (38-126); Anion Gap 6 mmol/L; Blood Urea Nitrogen 20 mg/dL (9-20); Calcium 8.5 mg/dL (8.4-10.2); Carbon Dioxide 33 mmol/L (22-30); Chloride 93 mmol/L (98-107); Globulin 2.6 g/dL; Glucose 106 mg/dL (74-99); Magnesium 1.9 mg/dL (1.6-2.3); Non-African American GFR(CKD) >90 (>60 ml/min/1.73 sqM); Potassium 4.8 mmol/L (3.5-5.1); Sodium 132 mmol/L (137-145); Total Bilirubin 0.7 mg/dL (0.2-1.3); Total Protein 5.4 g/dL (6.3-8.2)
[2024-01-10 10:40] LABS: Anisocytosis Slight; HCT 25.3 % (39.0-53.0); HGB 8.2 gm/dL (13.0-17.5); MCH 34.4 pg (25.0-35.0); MCHC 32.3 g/dL (31.0-37.0); MCV 106.3 fL (80.0-100.0); Macrocytosis Moderate; Mean Platelet Volume 10.6; RBC 2.38 m/uL (4.30-5.90); RDW 16.9 % (11.5-15.5); WBC 18.7 k/uL (3.8-10.6)
--- NOTE | 2024-01-10 10:59 | XR ---
EXAMINATION TYPE: XR chest 1V portable DATE OF EXAM: 01/10/2024 COMPARISON: 01/01/2024 INDICATION: Toxemia TECHNIQUE: Single frontal view of the chest is obtained. FINDINGS: The heart size is normal. The pulmonary vasculature is normal. There is a right upper lobe infiltrate which has developed. Left basilar infiltrate likely atelectasi s was present previously. Loops of bowel containing air under the diaphragms. IMPRESSION: 1. Developing right upper lobe infiltrate. Correlate for pneumonia. Follow-up is recommended. 2. Stable left basilar infiltrate likely atelectasis. Follow-up recommended.
[2024-01-10 11:45] LABS: Glucose,Whole Blood 105 mg/dL (70-110)
--- NOTE | 2024-01-10 12:35 | P.PN ---
Subjective Progress Note Date: 01/10/24 Principal diagnosis: Reason for follow-up is positive blood culture and leukocytosis Patient is a 63-year-old male with a past medical history significant for pulmonary fibrosis EtOH abuse DTs, recently prolonged stay for aspiration pneumonia and cardiac PEG tube presenting back to the hospital with worsening shortness of breath did have a positive blood culture prompting this consultation. On today's visit that is 01/10/2024, the patient continues to be afebrile, the patient is on 3 L nasal cannula oxygen and breathing comfortably, the Pt denies having any chest pain or cough, the patient denies having any abdominal pain no vomiting or any diarrhea has been reported by the nursing staff, no new symptoms. Patient white count is 18.7, creatinine 0.56 Objective - Vital Signs Vital signs: Vital Signs Temp 98.8 F 01/10/24 07:10 Pulse 89 01/10/24 07:40 Resp 20 01/10/24 07:40 BP 95/60 01/10/24 07:10 Pulse Ox 98 01/10/24 07:10 FiO2 Intake & Output 01/09/24 01/10/24 01/10/24 18:59 06:59 18:59 Intake Total 100 Output Total 600 250 350 Balance -500 -250 -350 Weight 49.4 kg 52 kg Intake: IV 100 Output: Urine 600 250 350 Other: Voiding Method Urinal # Voids 3 # Bowel Movements 1 1 - Exam GENERAL DESCRIPTION: Middle-age male up in bed in no distress RESPIRATORY SYSTEM: Unlabored breathing , decreased breath sounds at bases HEART: S1 S2 regular rate and rhythm , ABDOMEN: Soft , no tenderness EXTREMITIES: No edema feet - Labs CBC & Chem 7: 01/10/24 09:06 01/10/24 05:00 Labs: Abnormal Lab Results - Last 24 Hours (Table) 01/09/24 01/09/24 01/09/24 Range/Units 14:30 14:30 16:58 WBC 17.42 H (4.50-10.00) X 10*3/uL RBC 2.32 L (4.40-5.60) X 10*6/uL Hgb 8.0 L (13.0-17.0) g/dL Hct 25.0 L (39.6-50.0) % MCV 107.8 H (80.0-97.0) FL MCH 34.5 H (27.0-32.0) pg RDW 16.6 H (11.5-14.5) % Immature Gran # 0.08 H (0.00-0.04) X 10*3/uL Neutrophils # 16.36 H (1.80-7.70) X 10*3/uL Lymphocytes # 0.47 L (0.90-5.00) X 10*3/uL Eosinophils # 0.03 L (0.04-0.35) X 10*3/uL Sodium (137-145) mmol/L Chloride 92 L (96-109) mmol/L Carbon Dioxide 33.0 H (21.6-31.8) mmol/L Creatinine (0.66-1.25) mg/dL BUN/Creatinine Ratio 29.71 H (12.00-20.00) Ratio Glucose 131 H (70-110) mg/dL POC Glucose (mg/dL) 184 H (70-110) mg/dL C-Reactive Protein 2.30 H (0.00-0.80) mg/dL Total Protein (6.3-8.2) g/dL Albumin (3.5-5.0) g/dL 01/10/24 01/10/24 01/10/24 Range/Units 01:09 05:00 06:05 WBC (4.50-10.00) X 10*3/uL RBC (4.40-5.60) X 10*6/uL Hgb (13.0-17.0) g/dL Hct (39.6-50.0) % MCV (80.0-97.0) FL MCH (27.0-32.0) pg RDW (11.5-14.5) % Immature Gran # (0.00-0.04) X 10*3/uL Neutrophils # (1.80-7.70) X 10*3/uL Lymphocytes # (0.90-5.00) X 10*3/uL Eosinophils # (0.04-0.35) X 10*3/uL Sodium 132 L (137-145) mmol/L Chloride 93 L (96-109) mmol/L Carbon Dioxide 33 H (21.6-31.8) mmol/L Creatinine 0.56 L (0.66-1.25) mg/dL BUN/Creatinine Ratio (12.00-20.00) Ratio Glucose 106 H (70-110) mg/dL POC Glucose (mg/dL) 130 H 141 H (70-110) mg/dL C-Reactive Protein (0.00-0.80) mg/dL Total Protein 5.4 L (6.3-8.2) g/dL Albumin 2.8 L (3.5-5.0) g/dL 01/10/24 Range/Units 09:06 WBC 18.7 H (4.50-10.00) X 10*3/uL RBC 2.38 L (4.40-5.60) X 10*6/uL Hgb 8.2 L (13.0-17.0) g/dL Hct 25.3 L (39.6-50.0) % MCV 106.3 H (80.0-97.0) FL MCH (27.0-32.0) pg RDW 16.9 H (11.5-14.5) % Immature Gran # (0.00-0.04) X 10*3/uL Neutrophils # (1.80-7.70) X 10*3/uL Lymphocytes # (0.90-5.00) X 10*3/uL Eosinophils # (0.04-0.35) X 10*3/uL Sodium (137-145) mmol/L Chloride (96-109) mmol/L Carbon Dioxide (21.6-31.8) mmol/L Creatinine (0.66-1.25) mg/dL BUN/Creatinine Ratio (12.00-20.00) Ratio Glucose (70-110) mg/dL POC Glucose (mg/dL) (70-110) mg/dL C-Reactive Protein (0.00-0.80) mg/dL Total Protein (6.3-8.2) g/dL Albumin (3.5-5.0) g/dL Assessment and Plan (1) Positive blood culture Current Visit: Yes Status: Acute Priority: High Code(s): R78.81 - BACTEREMIA SNOMED Code(s): 575215930 (2) Leukocytosis Current Visit: No Status: Acute Code(s): D72.829 - ELEVATED WHITE BLOOD CELL COUNT, UNSPECIFIED SNOMED Code(s): 776321988 Plan: 1patient with a positive blood culture with staph epi will likely significant admission of the patient no clinical disease to go along with it and there is no need for any vancomycin blood culture has been repeated document clearance and so far negative no need for vancomycin 2-patient with admission to hospital worsening shortness of breath possibly related to his underlying pulmonary fibrosis/tracheobronchitis, sputum has been April albicans 3-leukocytosis more likely steroid related, however sputum is growing April possible component of oropharyngeal candidiasis, he did receive a dose of Diflucan and the white count it came down as of today keeping in mind drug interaction with the Diflucan we will consider Eraxis while inpatient Dictation was produced using [employer] dictation software. please excuse any grammatical, word or spelling errors. Time with Patient: Less than 30
[2024-01-10] MEDS: ANIDULAFUNGIN 200 MG in SODIUM CHLORIDE 0.9% 200 ML IVPB ONE (13:13)
--- NOTE | 2024-01-10 13:16 | P.PN ---
Subjective Progress Note Date: 01/10/24 CHIEF COMPLAINT: Anemia HISTORY OF PRESENT ILLNESS: Patient status post EGD and colonoscopy. EGD results reported gastritis without bleeding and gastrostomy tube within normal limits. Colonoscopy reported sigmoid diverticulosis. Patient denies any abdominal pain. Denies any blood in his stools. Afebrile. WBC 18 Hgb stable at 8.2 PHYSICAL EXAM: VITAL SIGNS: Reviewed GENERAL: Well-developed in no acute distress. HEENT: No sclera icterus. Extraocular movements grossly intact. Moist buccal mucosa. Head is atraumatic, normocephalic. Hears conversational speech. No nasal drainage. NECK: Supple without lymphadenopathy. CHEST: Non-labored respirations and equal bilateral excursions. CARDIOVASCULAR: Palpable 2+ radial pulses. ABDOMEN: Soft. Nondistended. Nontender. MUSCULOSKELETAL: No clubbing or cyanosis. NEUROLOGIC: No focal or lateralizing signs. Cranial nerves II through XII grossly intact. PSYCH: Appropriate affect. Alert and oriented to person, place and time. SKIN: Well perfused. Good skin turgor. ASSESSMENT: 1. Anemia status post EGD and colonoscopy. No evidence of active bleeding. EGD reported gastritis without bleeding and colonoscopy revealed sigmoid div erticulosis 2. Recurrent aspiration, PEG tube dependent 3. Severe protein calorie malnutrition 4. Chronic respiratory failure 5. History of interstitial pulmonary fibrosis PLAN: -Patient with no active bleeding. His initial hemoglobin may have been elevated because of dehydration on admission. Hemoglobin remaining stable. -Continue tube feeds -PPI added for gastritis Physician Healthcare Consultant note has been reviewed by physician. Signing provider agrees with the documented findings, assessment, and plan of care. Objective - Vital Signs Vital signs: Vital Signs Temp 98.8 F 01/10/24 07:10 Pulse 89 01/10/24 07:40 Resp 20 01/10/24 07:40 BP 95/60 01/10/24 07:10 Pulse Ox 98 01/10/24 07:10 FiO2 Intake & Output 01/09/24 01/10/24 01/10/24 18:59 06:59 18:59 Intake Total 100 Output Total 600 250 350 Balance -500 -250 -350 Weight 49.4 kg 52 kg Intake: IV 100 Output: Urine 600 250 350 Other: Voiding Method Urinal # Voids 3 # Bowel Movements 1 1 - Labs CBC & Chem 7: 01/10/24 09:06 01/10/24 05:00 Labs: Abnormal Lab Results - Last 24 Hours (Table) 01/09/24 01/09/24 01/09/24 Range/Units 14:30 14:30 16:58 WBC 17.42 H (4.50-10.00) X 10*3/uL RBC 2.32 L (4.40-5.60) X 10*6/uL Hgb 8.0 L (13.0-17.0) g/dL Hct 25.0 L (39.6-50.0) % MCV 107.8 H (80.0-97.0) FL MCH 34.5 H (27.0-32.0) pg RDW 16.6 H (11.5-14.5) % Immature Gran # 0.08 H (0.00-0.04) X 10*3/uL Neutrophils # 16.36 H (1.80-7.70) X 10*3/uL Lymphocytes # 0.47 L (0.90-5.00) X 10*3/uL Eosinophils # 0.03 L (0.04-0.35) X 10*3/uL Sodium (137-145) mmol/L Chloride 92 L (96-109) mmol/L Carbon Dioxide 33.0 H (21.6-31.8) mmol/L Creatinine (0.66-1.25) mg/dL BUN/Creatinine Ratio 29.71 H (12.00-20.00) Ratio Glucose 131 H (70-110) mg/dL POC Glucose (mg/dL) 184 H (70-110) mg/dL C-Reactive Protein 2.30 H (0.00-0.80) mg/dL Total Protein (6.3-8.2) g/dL Albumin (3.5-5.0) g/dL 01/10/24 01/10/24 01/10/24 Range/Units 01:09 05:00 06:05 WBC (4.50-10.00) X 10*3/uL RBC (4.40-5.60) X 10*6/uL Hgb (13.0-17.0) g/dL Hct (39.6-50.0) % MCV (80.0-97.0) FL MCH (27.0-32.0) pg RDW (11.5-14.5) % Immature Gran # (0.00-0.04) X 10*3/uL Neutrophils # (1.80-7.70) X 10*3/uL Lymphocytes # (0.90-5.00) X 10*3/uL Eosinophils # (0.04-0.35) X 10*3/uL Sodium 132 L (137-145) mmol/L Chloride 93 L (96-109) mmol/L Carbon Dioxide 33 H (21.6-31.8) mmol/L Creatinine 0.56 L (0.66-1.25) mg/dL BUN/Creatinine Ratio (12.00-20.00) Ratio Glucose 106 H (70-110) mg/dL POC Glucose (mg/dL) 130 H 141 H (70-110) mg/dL C-Reactive Protein (0.00-0.80) mg/dL Total Protein 5.4 L (6.3-8.2) g/dL Albumin 2.8 L (3.5-5.0) g/dL 01/10/24 Range/Units 09:06 WBC 18.7 H (4.50-10.00) X 10*3/uL RBC 2.38 L (4.40-5.60) X 10*6/uL Hgb 8.2 L (13.0-17.0) g/dL Hct 25.3 L (39.6-50.0) % MCV 106.3 H (80.0-97.0) FL MCH (27.0-32.0) pg RDW 16.9 H (11.5-14.5) % Immature Gran # (0.00-0.04) X 10*3/uL Neutrophils # (1.80-7.70) X 10*3/uL Lymphocytes # (0.90-5.00) X 10*3/uL Eosinophils # (0.04-0.35) X 10*3/uL Sodium (137-145) mmol/L Chloride (96-109) mmol/L Carbon Dioxide (21.6-31.8) mmol/L Creatinine (0.66-1.25) mg/dL BUN/Creatinine Ratio (12.00-20.00) Ratio Glucose (70-110) mg/dL POC Glucose (mg/dL) (70-110) mg/dL C-Reactive Protein (0.00-0.80) mg/dL Total Protein (6.3-8.2) g/dL Albumin (3.5-5.0) g/dL
--- NOTE | 2024-01-10 13:54 | P.PN ---
Subjective Progress Note Date: 01/10/24 Patient is a 63-year-old white male with past medical history significant for advanced pulmonary fibrosis and restrictive lung disease treated with Ofev, previous ventilator dependent respiratory failure, alcoholism. Patient did have a recent prolonged and complicated hospitalization 12/16/2023 through 0 12/28/2023. He was treated for aspiration pneumonia. He did undergo a swallow evaluation showed aspiration with various consistencies. He did have a a PEG tube placed 12/26/2023. Patient returned to the emergency room yesterday afternoon complaining of severe weakness. He has no other specific complaints. He denies any change in his chronic shortness of breath. He does have a chronic cough. Currently, he is producing some clear sputum. No fevers. No chest pain. A follow-up chest x-ray showed chronic lung changes with low lung volumes and mild bibasilar atelectasis. Improvement in the patient's previous consolidative lung infiltrates. There is abnormal gas pattern suggestive of pos sible obstruction or severe ileus. This was followed up with an abdominal and pelvis CT which showed a likely nonobstructive bowel gas pattern. Patient is currently lying in bed on 4 L/min nasal cannula, in no acute distress. He actually has no specific complaints other than generalized and severe weakness. He has had to use a wheelchair to get around. His daughter and son-in-law have moved in to help him. He has been using his PEG tube for bolus feeding. Denies nausea, vomiting, abdominal pain. He has had loose bowel movements. 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 An ABG was done in the emergency room, which showed a component of compensated chronic hypercapnic respiratory failure. CBC on arrival: WBC count 22, hemoglobin 16.3, hematocrit 50.3, platelets 395. CMP on arrival: Sodium 133, potassium 5.2, chloride 84, serum bicarb 39, BUN 30, creatinine 0.69, glucose 157. Lactic acid level 2.7 down to 1.7. LFTs mildly elevated. Troponin 0.015. NT proBNP 527. In the emergency room, the patient was continued on Zosyn. Currently afebrile. Hemodynamically stable. The patient was seen today and the patient is currently on 40s of oxygen by nasal cannula. He continues to have some cough and congestion.The patient blood work shows leukocytosis with a white cell count of 25 which is slightly higher compared to yesterday with a hemoglobin of 13.5 which is lower compared to yesterday. Platelet counts are stable at 313. The patient is having normal renal function with a BUN of 22 and a creatinine of 0.6 and sodium levels at 132. Procalcitonin level came back at 0.08. The scleroderma antibodies are negative. RUBY was also negative. I reviewed the CAT scan of the abdomen and pe lvis and the CAT scan shows chronic scarring and bronchiectatic change in lung bases. Prominent pulmonary arteries consistent with pulm hypertension. Rest of the intra-abdominal structures were essentially within normal limits and the PEG tube is in a good location. There are some nonspecific bowel gas pattern without any evidence of any obstruction or small bowel dilatation. As for the chest x-ray that was done at time of admission, it shows a smaller lung volumes, some atelectatic changes and chronic scarring lung base bilaterally consistent with with his underlying pulmonary fibrosis. Aspiration was suspected and the patient remains on IV Zosyn. Patient is also on DuoNeb nebulized treatments [id number]. The patient is on IV Solu-Medrol 60 mg every 6 hours. Rest of the home medication have been resumed. The patient on Lovenox for DVT prophylaxis. On 01/03/2024, the patient is being seen for a follow-up. The patient is feeling better on today's evaluation. The patient is down to 2 L of oxygen by nasal cannula which is his baseline oxygen requirements. Denies having any chest pain. No other significant events overnight. The white cell count remains elevated at 25.5 with a hemoglobin 8.6 and a platelet count of 314. BUN is at 31 with a creatinine of 0.7 and sodium levels at 132. Procalcitonin level was low at 0.08. The patient remains on DuoNeb updrafts. The patient remains on IV Solu-Medrol 60 mg every 6 hours. The patient remains on IV Zosyn which is essentially empiric antibiotic coverage. Blood cultures are negative thus far. The patient was also started on enteral feeding for nutritional support and the patient is currently on Jevity 1.2 at the rate of 42 cc an hour. Overnight, the patient is in a episode of hypotension with a systolic blood pressure in the low 70s. The patient was given a liter bolus and currently is normotensive. Denies having any chest pain. No altered mentation. No chest pain. No other significant events otherwise. On today's evaluation of 01/04/2024, the patient is doing well. No specific complaints. Feeling better and stronger compared to yesterday. He is on 2 L of oxygen by nasal cannula with a pulse ox of 99%. Afebrile. Hemodynamically stable. White cell count is at 25 which remains elevated and I think this is partly related to steroids. I am going to discontinue the IV Solu-Medrol and the patient will be started on oral prednisone. White cell count is stable at 8.9. This is stable compared to yesterday. Nevertheless, the patient experienced a significant drop in the hemoglobin since his previous admissions. No evidence of any GI bleeding at this point in time. PEG tube site is clean and the patient is having enteral feeding for nutritional support. No reported aspiration at this point in time. Microbiology from the blood cultures showing gram-positive cocci in clusters and this is consistent with coagulase-negative staph. BUN is at 26 with a creatinine of 0.7 and a sodium levels at 132 with a potassium level of 5.2.This patient did not show any signs of any GI bleeding. He did encounter a brief episode of hypotension 48 hours ago and this recovered with IV fluids and he has been normotensive since. He is feeling fine. Hemoglobin is being monitored. On today's evaluation of 01/05/2024, no new complaints. The patient was encouraged improving and the patient's white count down to 16.7, it was at 7.9, and a platelet count is at 275. He is afebrile. Currently on 3 Suboxone by nasal cannula with a pulse ox of 99%. Continues to receive enteral feeding for nutritional support. Clearance was given to swallow his Ofev tablets regarding his IPF. Is currently on prednisone burst taper starting with 40 mg. Remains on DuoNeb updrafts. Rest of the medication remains unchanged. No altered mentation for now. The patient has developed some acute drop in hemoglobin down to 7.9. The hemoglobin has been steadily dropping since admission. No signs of any acute bleeding. Medical team is aware of the drop in hemoglobin this is being monitored very closely. On today's evaluation of 01/06/2024, the patient is being seen for a follow-up. No significant change in his respiratory status. The patient's hemoglobin is still downtrending is currently down to 7.5. Hematology oncology is on the case. The white cell count at 13.6. Platelet count 300. Sodium is at 129 with a BUN of 21 and creatinine of 0.6. The patient does have a sputum sample is positive for April and the blood cultures positive for Staph epidermidis. The patient has advanced pulmonary fibrosis. The patient also has chronic dysphagia utilizing PEG tube feeding for enteral feeding and nutritional support. Hematology oncology is evaluating this patient regarding the ongoing anemia. No evidence of any acute bleeding. His reticulocyte count has been low. Vitamin B12 has been normal and the patient is on folic acid supplements. Hemoglobin is being monitored. On today's evaluation of 01/07/2024, the patient is being seen for a follow-up. No new complaints. Hemoglobin is stable at 9.4. BUN is at 21 with a creatinine of 0.6 and sodium levels at 132. Oxygenation is also stable at 3 L with a pulse ox of 98%. Continues to receive enteral feeding for nutritional support. The patient has no new complaints. The patient completed the course of IV Zosyn. Currently on antibiotic coverage. White cell count is at 16. Tolerating enteral feeding for nutritional support. No reported aspiration. No other new complaints otherwise for now. Hemoglobin is being monitored and current hemoglobin is up to 9.4. On today's evaluation of 01/08/2024, the patient has no specific complaints. He is on 3 L of oxygen by nasal cannula. Antibiotic course has been completed. He is also on a course of a prednisone burst taper currently on 40 mg. Receiving enteral feeding for nutritional support. Tolerating the diet. Labs are all stable. The white cell count is at 19 and the white cell count continues to fluctuate. Hemoglobin is 9.4 with a platelet count of 16. No significant drop in hemoglobin over the past 48 hours. BUN is at 23 with a creatinine 0.6 and a sodium levels at 134. The patient is scheduled to undergo EGD and colonoscopy for anemia in a.m. The patient is seen today January 09, 2024 in follow-up on the regular medical floor. He is currently awake and alert in no acute distress. Resting fairly comfortably in bed. Denies any worsening shortness of breath, cough or congestion. He is maintaining good O2 saturations in the upper 90s on 3 L/min per nasal cannula. He is afebrile. Hemodynamically stable. He did undergo EGD and colonoscopy this morning. He was found to have some gastritis without active bleeding. He was also found to have sigmoid diverticulosis but no active bleeding. Blood sugar 89. Most recent hemoglobin 9.4. He remains on bronchodilators and prednisone. The patient is seen today January 10, 2024 in follow-up on the regular medical floor. He is resting comfortably in bed. Awake and alert in no acute distress. He is maintaining O2 saturations in the 90s on 3 L/min per nasal cannula. His procalcitonin was 0.08. He is receiving Jevity tube feedings at 50 MLS per hour. White count 18.7. Hemoglobin 8.2. Sodium 132. Potassium 4.8. Bicarb 33. BUN 20. Creatinine 0.56. Glucose 106. Continued on bronchodilators and steroids. Continued on Lovenox for DVT prophylaxis. Sputum culture positive for April. He has been initiated on Eraxis. Objective - Vital Signs Vital signs: Vital Signs Temp 98.8 F 01/10/24 07:10 Pulse 89 01/10/24 07:40 Resp 20 01/10/24 07:40 BP 95/60 01/10/24 07:10 Pulse Ox 98 01/10/24 07:10 FiO2 Intake & Output 01/09/24 01/10/24 01/10/24 18:59 06:59 18:59 Intake Total 100 Output Total 600 250 350 Balance -500 -250 -350 Weight 49.4 kg 52 kg Intake: IV 100 Output: Urine 600 250 350 Other: Voiding Method Urinal # Voids 3 # Bowel Movements 1 1 - Exam GENERAL EXAM: Alert, 63-year-old male, cachectic, in no apparent distress, on 3 L of oxygen nasal cannula HEAD: Normocephalic and atraumatic EYES: Normal reaction of pupils, equal size. NOSE: Clear with pink turbinates. THROAT: No erythema or exudates. NECK: No masses, no JVD. CHEST: No chest wall deformity. LUNGS: Equal air entry with inspiratory bibasilar Velcro crackles. No conversational dyspnea or accessory muscle use while at rest. CVS: S1 and S2 normal with no audible murmur, regular rhythm. No extra heart sounds ABDOMEN: No hepatosplenomegaly, active bowel sounds, no guarding or rigidity. PEG tube site clean, dry, without any drainage. SPINE: No scoliosis or deformity SKIN: No rashes CENTRAL NERVOUS SYSTEM: No focal deficits, tone is normal in all 4 extremities. EXTREMITIES: There is no peripheral edema, clubbing, or cyanosis. Peripheral pulses are intact. - Labs CBC & Chem 7: 01/10/24 09:06 01/10/24 05:00 Labs: Abnormal Lab Results - Last 24 Hours (Table) 01/09/24 01/09/24 01/09/24 Range/Units 14:30 14:30 16:58 WBC 17.42 H (4.50-10.00) X 10*3/uL RBC 2.32 L (4.40-5.60) X 10*6/uL Hgb 8.0 L (13.0-17.0) g/dL Hct 25.0 L (39.6-50.0) % MCV 107.8 H (80.0-97.0) FL MCH 34.5 H (27.0-32.0) pg RDW 16.6 H (11.5-14.5) % Immature Gran # 0.08 H (0.00-0.04) X 10*3/uL Neutrophils # 16.36 H (1.80-7.70) X 10*3/uL Lymphocytes # 0.47 L (0.90-5.00) X 10*3/uL Eosinophils # 0.03 L (0.04-0.35) X 10*3/uL Sodium (137-145) mmol/L Chloride 92 L (96-109) mmol/L Carbon Dioxide 33.0 H (21.6-31.8) mmol/L Creatinine (0.66-1.25) mg/dL BUN/Creatinine Ratio 29.71 H (12.00-20.00) Ratio Glucose 131 H (70-110) mg/dL POC Glucose (mg/dL) 184 H (70-110) mg/dL C-Reactive Protein 2.30 H (0.00-0.80) mg/dL Total Protein (6.3-8.2) g/dL Albumin (3.5-5.0) g/dL 01/10/24 01/10/24 01/10/24 Range/Units 01:09 05:00 06:05 WBC (4.50-10.00) X 10*3/uL RBC (4.40-5.60) X 10*6/uL Hgb (13.0-17.0) g/dL Hct (39.6-50.0) % MCV (80.0-97.0) FL MCH (27.0-32.0) pg RDW (11.5-14.5) % Immature Gran # (0.00-0.04) X 10*3/uL Neutrophils # (1.80-7.70) X 10*3/uL Lymphocytes # (0.90-5.00) X 10*3/uL Eosinophils # (0.04-0.35) X 10*3/uL Sodium 132 L (137-145) mmol/L Chloride 93 L (96-109) mmol/L Carbon Dioxide 33 H (21.6-31.8) mmol/L Creatinine 0.56 L (0.66-1.25) mg/dL BUN/Creatinine Ratio (12.00-20.00) Ratio Glucose 106 H (70-110) mg/dL POC Glucose (mg/dL) 130 H 141 H (70-110) mg/dL C-Reactive Protein (0.00-0.80) mg/dL Total Protein 5.4 L (6.3-8.2) g/dL Albumin 2.8 L (3.5-5.0) g/dL 01/10/24 Range/Units 09:06 WBC 18.7 H (4.50-10.00) X 10*3/uL RBC 2.38 L (4.40-5.60) X 10*6/uL Hgb 8.2 L (13.0-17.0) g/dL Hct 25.3 L (39.6-50.0) % MCV 106.3 H (80.0-97.0) FL MCH (27.0-32.0) pg RDW 16.9 H (11.5-14.5) % Immature Gran # (0.00-0.04) X 10*3/uL Neutrophils # (1.80-7.70) X 10*3/uL Lymphocytes # (0.90-5.00) X 10*3/uL Eosinophils # (0.04-0.35) X 10*3/uL Sodium (137-145) mmol/L Chloride (96-109) mmol/L Carbon Dioxide (21.6-31.8) mmol/L Creatinine (0.66-1.25) mg/dL BUN/Creatinine Ratio (12.00-20.00) Ratio Glucose (70-110) mg/dL POC Glucose (mg/dL) (70-110) mg/dL C-Reactive Protein (0.00-0.80) mg/dL Total Protein (6.3-8.2) g/dL Albumin (3.5-5.0) g/dL Assessment and Plan Assessment: Acute on chronic hypoxemic respiratory failure, follow-up chest x-ray shows improvement in the patient's previous superimposed lung consolidations. There are chronic lung changes with low lung volumes and mild bibasilar atelectasis versus scarring. The patient's oxygenation is stable and the patient is currently on 3 L O2 nasal cannula. Suspect chemical pneumonitis. Procalcitonin level is nonelevated. Clinically stable. Monitor for worsening shortness of breath. White cell count 19, completed course of Zosyn Recent hospital admission for suspected aspiration pneumonia, completed Zosyn Acute leukocytosis, improving and the white cell count is down to 19 Acute drop in hemoglobin. No evidence of any GI bleeding. Hemoglobin is 8.2. EGD and colonoscopy January 09, 2024 revealed no active bleeding Interstitial pulmonary fibrosis, previously maintained on Ofev, unable to take the medication as the medication is not crushable through the PEG tube Chronic hypoxemic respiratory failure, secondary to above, normally maintained on 3 L/min nasal cannula Chronic hypercapnic respiratory failure Severe generalized weakness and deconditioning Severe protein calorie malnutrition Dysphagia, status post PEG tube insertion on 12/26/2023, has been giving himself bolus feeds at home. History of alcoholism Osteoarthritis Chronic back pain Plan: The patient was seen and evaluated Labs and medications reviewed Stable and on 3 L nasal cannula Continue bronchodilators, steroids Plan is for home with home care versus ECF We will continue to follow I have personally seen and examined the patient, performed the documentation and the assessment and plan as written. Number of minutes spent on the visit: 10.
--- NOTE | 2024-01-10 13:56 | P.PN ---
Subjective Progress Note Date: 01/10/24 Hospital course: Patient is a very pleasant 63-year-old male with a past medical history of pulmonary fibrosis with chronic respiratory failure on 3 and half liters nasal cannula at home, hypertension, and previous history of EtOH abuse. He presented to the emergency department 01/01/2024 for a chief complaint of chills, shakes, and generalized weakness. Patient underwent evaluation in the ER. Vital signs upon arrival patient was afebrile with a temp of 97.7 F, 139/80, heart rate 101, respiratory rate 26, and SpO2 of 84% on 5 L increasing to 100% on 6 L of nasal cannula. EKG completed showing sinus rhythm at 87 bpm with peaked T waves. Chest x-ray showing chronic lung changes with low lung volumes and mild bibasilar subsegmental atelectasis versus scarring and abnormal bowel gas pattern suggestive of possible obstruction or ileus. CT abdomen and pelvis with contrast then completed showing overall nonspecific but felt to be nonobstructive bowel gas pattern. Labs completed and reviewed. CBC showing WBC count of 22.2. ABG revealing metabolic alkalosis with pH of 7.47, pCO2 of 57, pO2 212, bicarb of 41, total CO2 of 43, and O2 sat of 99.3. BMP revealing hyponatremia with sodium of 133, hyperkalemia with potassium of 5.2, and consistent with metabolic acidosis with chloride of 84, bicarb of 39, and anion gap of 10. BUN also elevated at 30. Lactic acid 2.4. Magnesium 1.9. Liver profile showing transaminitis with AST of 60, ALT of 105, and alkaline phosphatase of 170. Troponin 0.015. proBNP 527. Patient admitted under services for acute on chronic respiratory failure with hypoxia and sepsis with consultation to pulmonology at this time. Procalcitonin negative. Leukocytosis is persistent. Microbiology showed blood cultures positive for GPC in clusters, staph epi likely contaminant. IV Zosyn discontinued. Repeat blood cultures negative. Patient became anemic with hemoglobin dropping from 13.5 down to 8.9, likely from hypoproliferation. However continued to go down and patient has symptoms secondary to this acute anemia. Hematology evaluated and concerned for GI bleed, and general surgery was consulted. General surgery evaluated and taking patient for EGD and colonoscopy today. Physical exam: Patient seen and fully evaluated at bedside this morning. Patient was resting comfortably in bed this morning. Patient reports feeling extra tired today but otherwise denies having any pain or complaints at this time. His sputum culture was positive for April albicans and patient was started on Eraxis. Patient also persistently wiping away thick plaque on lips and tongue concerning for oral candidiasis consistent with positive sputum culture. Will place patient on Magic mouthwash scheduled 4 times daily for swish and swallow only. Vital signs reviewed and stable. General: Nontoxic, no distress and appears stated age. Thin and frail. Derm: Skin warm and dry, pallor present. Head: Atraumatic, normocephalic and symmetric. Eyes: EOMs intact, no lid lag, and anicteric sclera Mouth: no lip lesions, mucus membranes moist Cardiovascular: regular rate and rhythm with normal S1S2, no murmur, positive posterior tibial pulses bilaterally, and cap refill < 2 seconds. Lungs: Respirations even, regular, and unlabored on 3 L O2 via nasal cannula. Lungs diminished with soft expiratory wheezes. No rhonchi, no rales, no wheezing. No accessory muscle usage. Abdominal: soft, nontender to palpation, no guarding, no appreciable organomegaly. Gastric tube present. Ext: ROM intact. No gross muscle atrophy, no edema, no contractures Neuro: Speech clear, face symmetrical and CN II-XII grossly intact with no noted focal neuro deficits Psych: Alert and oriented to person, place, time, and situation. Appropriate and pleasant affect. Assessment and Plan of Care: Acute on chronic respiratory failure with hypoxia Pulmonary fibrosis with chronic respiratory failure Leukocytosis, improving Aphthous ulcer with oral candidiasis. -Acute on chronic respiratory failure improved, patient on baseline oxygen needs 3 L -Pulmonology following, reviewed documentation in chart. -Infectious disease following, reviewed documentation in chart. Sputum culture positive for April albicans. Patient was started on Eraxis 100 mg daily. -Patient to continue with DuoNebs every 2 hours as needed for shortness of breath and/or wheezing. -Order placed for Magic mouthwash with Maalox, viscous lidocaine, diphenhydramine, and nystatin with strict instructions for swish and spit only as patient high risk for aspiration. Acute macrocytic anemia, bone marrow suppression vs GI bleed -Hemoglobin stable at 8.2 and leukocytosis improving with WBC count 18.7 -Hematology evaluated, recommended GI workup to rule out GI bleed -General surgery evaluated and took patient for EGD and colonoscopy on 01/09/2024. Colonoscopy revealing sigmoid diverticulosis and grade 2 internal hemorrhoids. EGD revealing gastritis without bleeding -Continue to monitor CBC closely and transfuse if needed for hemoglobin less than 7 Recurrent aspiration, PEG tube dependent. Completed course of IV antibiotics with Zosyn. Sepsis upon arrival with lactic acid of 2.7, heart rate 101, respiratory rate 26, and WBC count of 22.2. Completed course of IV antibiotics with Zosyn. Staph epi bacteremia, contaminant. Repeat blood cultures x 2 negative showing no growth. Severe protein calorie malnutrition. Continue tube feeds, dietitian following. Chronic back pain. Continue home pain medication regimen with morphine sulfate 15 mg via PEG tube every 6 hours as needed for pain. Monitor for sedation Mild hyponatremia. Improving. Hyperkalemia. Resolved. Anxiety and Depression. Continue daily medication regimen with BuSpar 7.5 mg twice daily, Celexa 40 mg daily, and Xanax 0.5 mg 3 times daily. Hypertension. Vital signs stable on current medication regimen. Patient to continue with losartan 50 mg daily and metoprolol 12.5 mg twice daily. Data and imaging reviewed: Morning labs reviewed. CBC showing stable macrocytic anemia with hemoglobin of 8.2 and slight improvement of WBC count decreasing to 18.7. BMP showing mild hyponatremia with sodium of 132, hypochloremia with chloride of 93, and hypercarbia with bicarb of 33. Glucose 106. Magnesium 109. Vital signs reviewed and stable. Blood pressure 100/69, heart rate 109, respiratory rate 19, temp 99.1 F, and SpO2 of 98% on 3 L. DVT ppx: Lovenox Code status: Full code Anticipated discharge place: Pending clinical course Anticipated discharge time: Pending clinical course Patient was seen independently by Nurse Pracitioner. This document was prepared using [employer] dictation software. Please allow for errors in low raw sugar cutter, while rare they do occur. James Osullivan NP rendered care for this patient independently, reviewed the findi ngs and plan as documented in the note above. I did not physically speak with or examine the patient on this date. Objective - Vital Signs Vital signs: Vital Signs Temp 98.8 F 01/10/24 07:10 Pulse 89 01/10/24 07:40 Resp 20 04/16/24 07:40 BP 95/60 01/10/24 07:10 Pulse Ox 98 01/10/24 07:10 FiO2 Intake & Output 01/09/24 01/10/24 01/10/24 18:59 06:59 18:59 Intake Total 100 Output Total 600 250 350 Balance -500 -250 -350 Weight 49.4 kg 52 kg Intake: IV 100 Output: Urine 600 250 350 Other: Voiding Method Urinal # Voids 3 # Bowel Movements 1 1 - Labs CBC & Chem 7: 01/10/24 09:06 01/10/24 05:00 Labs: Abnormal Lab Results - Last 24 Hours (Table) 01/09/24 01/09/24 01/09/24 Range/Units 14:30 14:30 16:58 WBC 17.42 H (4.50-10.00) X 10*3/uL RBC 2.32 L (4.40-5.60) X 10*6/uL Hgb 8.0 L (13.0-17.0) g/dL Hct 25.0 L (39.6-50.0) % MCV 107.8 H (80.0-97.0) FL MCH 34.5 H (27.0-32.0) pg RDW 16.6 H (11.5-14.5) % Immature Gran # 0.08 H (0.00-0.04) X 10*3/uL Neutrophils # 16.36 H (1.80-7.70) X 10*3/uL Lymphocytes # 0.47 L (0.90-5.00) X 10*3/uL Eosinophils # 0.03 L (0.04-0.35) X 10*3/uL Sodium (137-145) mmol/L Chloride 92 L (96-109) mmol/L Carbon Dioxide 33.0 H (21.6-31.8) mmol/L Creatinine (0.66-1.25) mg/dL BUN/Creatinine Ratio 29.71 H (12.00-20.00) Ratio Glucose 131 H (70-110) mg/dL POC Glucose (mg/dL) 184 H (70-110) mg/dL C-Reactive Protein 2.30 H (0.00-0.80) mg/dL Total Protein (6.3-8.2) g/dL Albumin (3.5-5.0) g/dL 01/10/24 01/10/24 01/10/24 Range/Units 01:09 05:00 06:05 WBC (4.50-10.00) X 10*3/uL RBC (4.40-5.60) X 10*6/uL Hgb (13.0-17.0) g/dL Hct (39.6-50.0) % MCV (80.0-97.0) FL MCH (27.0-32.0) pg RDW (11.5-14.5) % Immature Gran # (0.00-0.04) X 10*3/uL Neutrophils # (1.80-7.70) X 10*3/uL Lymphocytes # (0.90-5.00) X 10*3/uL Eosinophils # (0.04-0.35) X 10*3/uL Sodium 132 L (137-145) mmol/L Chloride 93 L (96-109) mmol/L Carbon Dioxide 33 H (21.6-31.8) mmol/L Creatinine 0.56 L (0.66-1.25) mg/dL BUN/Creatinine Ratio (12.00-20.00) Ratio Glucose 106 H (70-110) mg/dL POC Glucose (mg/dL) 130 H 141 H (70-110) mg/dL C-Reactive Protein (0.00-0.80) mg/dL Total Protein 5.4 L (6.3-8.2) g/dL Albumin 2.8 L (3.5-5.0) g/dL Microbiology - Last 24 Hours (Table) 01/03/24 16:55 Blood Culture - Final Blood
[2024-01-10] MEDS: PANTOPRAZOLE SODIUM 40 MG GRANULE PKT PEG/G-TUBE SCH (14:40)
[2024-01-10 14:52] LABS: HGB 9.4 gm/dL (13.0-17.5)
[2024-01-10 15:22] LABS: Platelet Count 256 k/uL (150-450)
[2024-01-10] MEDS: MAG HYDROX/AL HYDROX/SIMETH 30 ML, LIDOCAINE VISCOUS 2% 30 ML, diphenhydrAMINE ELIXIR 7... PO SCH (17:43)
[2024-01-10 18:09] LABS: Glucose,Whole Blood 126 mg/dL (70-110)
[2024-01-10 23:33] LABS: Glucose,Whole Blood 111 mg/dL (70-110)
[2024-01-11 06:10] LABS: Glucose,Whole Blood 91 mg/dL (70-110)
[2024-01-11 06:57] LABS: ALT 27 U/L (4-49); AST 33 U/L (17-59); African American GFR (CKD) >90 (>60 ml/min/1.73 sqM); Albumin 2.9 g/dL (3.5-5.0); Albumin/Globulin Ratio 1.1; Alkaline Phosphatase 90 U/L (38-126); Anion Gap 1 mmol/L; Blood Urea Nitrogen 21 mg/dL (9-20); Calcium 8.5 mg/dL (8.4-10.2); Carbon Dioxide 37 mmol/L (22-30); Chloride 94 mmol/L (98-107); Globulin 2.7 g/dL; Glucose 77 mg/dL (74-99); Magnesium 2.2 mg/dL (1.6-2.3); Non-African American GFR(CKD) >90 (>60 ml/min/1.73 sqM); Potassium 5.4 mmol/L (3.5-5.1); Sodium 132 mmol/L (137-145); Total Bilirubin 1.2 mg/dL (0.2-1.3); Total Protein 5.6 g/dL (6.3-8.2)
--- NOTE | 2024-01-11 08:29 | XR ---
EXAMINATION TYPE: XR abdomen 1V DATE OF EXAM: 01/11/2024 6:58 AM CLINICAL INDICATION:Male, 63 years old with history of Abdominal distention; [facility] COMPARISON: None. TECHNIQUE: One radiographic view of the abdomen was obtained. FINDINGS: PEG tube projects over the upper abdomen. The bowel gas pattern is nonspecific without dila nidia loops of small or large bowel. There is no evidence for organomegaly or pneumoperitoneum. The os seous structures are intact. No abnormal calcifications are present. Fecal material and gas are demo nstrated throughout the colon and rectum. There is scoliosis changes of the spine. IMPRESSION: Gaseous nonspecific dilation of bowel with PEG tube in place.
[2024-01-11 10:03] LABS: Anisocytosis Slight; Basophils % (A) 0 %; Eosinophils # (A) 0.1 k/uL (0-0.7); Eosinophils % (A) 0 %; HCT 28.3 % (39.0-53.0); HGB 8.9 gm/dL (13.0-17.5); Hypochromasia Slight; Lymphocytes # (A) 1.7 k/uL (1.0-4.8); Lymphocytes % (A) 14 %; MCH 34.3 pg (25.0-35.0); MCHC 31.3 g/dL (31.0-37.0); MCV 109.5 fL (80.0-100.0); Macrocytosis Marked; Mean Platelet Volume 8.2; Monocytes # (A) 0.6 k/uL (0-1.0); Monocytes % (A) 5 %; Neutrophils # (A) 9.3 k/uL (1.3-7.7); Neutrophils % (A) 79 %; Platelet Count 311 k/uL (150-450); RBC 2.58 m/uL (4.30-5.90); RDW 16.9 % (11.5-15.5); WBC 11.9 k/uL (3.8-10.6)
[2024-01-11 11:31] LABS: Glucose,Whole Blood 107 mg/dL (70-110)
[2024-01-11] MEDS: ANIDULAFUNGIN 100 MG in SODIUM CHLORIDE 0.9% 100 ML IVPB SCH (12:31)
--- NOTE | 2024-01-11 14:04 | P.PN ---
Subjective Progress Note Date: 01/11/24 Patient is a 63-year-old white male with past medical history significant for advanced pulmonary fibrosis and restrictive lung disease treated with Ofev, previous ventilator dependent respiratory failure, alcoholism. Patient did have a recent prolonged and complicated hospitalization 12/16/2023 through 0 12/28/2023. He was treated for aspiration pneumonia. He did undergo a swallow evaluation showed aspiration with various consistencies. He did have a a PEG tube placed 12/26/2023. Patient returned to the emergency room yesterday afternoon complaining of severe weakness. He has no other specific complaints. He denies any change in his chronic shortness of breath. He does have a chronic cough. Currently, he is producing some clear sputum. No fevers. No chest pain. A follow-up chest x-ray showed chronic lung changes with low lung volumes and mild bibasilar atelectasis. Improvement in the patient's previous consolidative lung infiltrates. There is abnormal gas pattern suggestive of pos sible obstruction or severe ileus. This was followed up with an abdominal and pelvis CT which showed a likely nonobstructive bowel gas pattern. Patient is currently lying in bed on 4 L/min nasal cannula, in no acute distress. He actually has no specific complaints other than generalized and severe weakness. He has had to use a wheelchair to get around. His daughter and son-in-law have moved in to help him. He has been using his PEG tube for bolus feeding. Denies nausea, vomiting, abdominal pain. He has had loose bowel movements. 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 An ABG was done in the emergency room, which showed a component of compensated chronic hypercapnic respiratory failure. CBC on arrival: WBC count 22, hemoglobin 16.3, hematocrit 50.3, platelets 395. CMP on arrival: Sodium 133, potassium 5.2, chloride 84, serum bicarb 39, BUN 30, creatinine 0.69, glucose 157. Lactic acid level 2.7 down to 1.7. LFTs mildly elevated. Troponin 0.015. NT proBNP 527. In the emergency room, the patient was continued on Zosyn. Currently afebrile. Hemodynamically stable. The patient was seen today and the patient is currently on 40s of oxygen by nasal cannula. He continues to have some cough and congestion.The patient blood work shows leukocytosis with a white cell count of 25 which is slightly higher compared to yesterday with a hemoglobin of 13.5 which is lower compared to yesterday. Platelet counts are stable at 313. The patient is having normal renal function with a BUN of 22 and a creatinine of 0.6 and sodium levels at 132. Procalcitonin level came back at 0.08. The scleroderma antibodies are negative. RUBY was also negative. I reviewed the CAT scan of the abdomen and pe lvis and the CAT scan shows chronic scarring and bronchiectatic change in lung bases. Prominent pulmonary arteries consistent with pulm hypertension. Rest of the intra-abdominal structures were essentially within normal limits and the PEG tube is in a good location. There are some nonspecific bowel gas pattern without any evidence of any obstruction or small bowel dilatation. As for the chest x-ray that was done at time of admission, it shows a smaller lung volumes, some atelectatic changes and chronic scarring lung base bilaterally consistent with with his underlying pulmonary fibrosis. Aspiration was suspected and the patient remains on IV Zosyn. Patient is also on DuoNeb nebulized treatments [id number]. The patient is on IV Solu-Medrol 60 mg every 6 hours. Rest of the home medication have been resumed. The patient on Lovenox for DVT prophylaxis. On 01/03/2024, the patient is being seen for a follow-up. The patient is feeling better on today's evaluation. The patient is down to 2 L of oxygen by nasal cannula which is his baseline oxygen requirements. Denies having any chest pain. No other significant events overnight. The white cell count remains elevated at 25.5 with a hemoglobin 8.6 and a platelet count of 314. BUN is at 31 with a creatinine of 0.7 and sodium levels at 132. Procalcitonin level was low at 0.08. The patient remains on DuoNeb updrafts. The patient remains on IV Solu-Medrol 60 mg every 6 hours. The patient remains on IV Zosyn which is essentially empiric antibiotic coverage. Blood cultures are negative thus far. The patient was also started on enteral feeding for nutritional support and the patient is currently on Jevity 1.2 at the rate of 42 cc an hour. Overnight, the patient is in a episode of hypotension with a systolic blood pressure in the low 70s. The patient was given a liter bolus and currently is normotensive. Denies having any chest pain. No altered mentation. No chest pain. No other significant events otherwise. On today's evaluation of 01/04/2024, the patient is doing well. No specific complaints. Feeling better and stronger compared to yesterday. He is on 2 L of oxygen by nasal cannula with a pulse ox of 99%. Afebrile. Hemodynamically stable. White cell count is at 25 which remains elevated and I think this is partly related to steroids. I am going to discontinue the IV Solu-Medrol and the patient will be started on oral prednisone. White cell count is stable at 8.9. This is stable compared to yesterday. Nevertheless, the patient experienced a significant drop in the hemoglobin since his previous admissions. No evidence of any GI bleeding at this point in time. PEG tube site is clean and the patient is having enteral feeding for nutritional support. No reported aspiration at this point in time. Microbiology from the blood cultures showing gram-positive cocci in clusters and this is consistent with coagulase-negative staph. BUN is at 26 with a creatinine of 0.7 and a sodium levels at 132 with a potassium level of 5.2.This patient did not show any signs of any GI bleeding. He did encounter a brief episode of hypotension 48 hours ago and this recovered with IV fluids and he has been normotensive since. He is feeling fine. Hemoglobin is being monitored. On today's evaluation of 01/05/2024, no new complaints. The patient was encouraged improving and the patient's white count down to 16.7, it was at 7.9, and a platelet count is at 275. He is afebrile. Currently on 3 Suboxone by nasal cannula with a pulse ox of 99%. Continues to receive enteral feeding for nutritional support. Clearance was given to swallow his Ofev tablets regarding his IPF. Is currently on prednisone burst taper starting with 40 mg. Remains on DuoNeb updrafts. Rest of the medication remains unchanged. No altered mentation for now. The patient has developed some acute drop in hemoglobin down to 7.9. The hemoglobin has been steadily dropping since admission. No signs of any acute bleeding. Medical team is aware of the drop in hemoglobin this is being monitored very closely. On today's evaluation of 01/06/2024, the patient is being seen for a follow-up. No significant change in his respiratory status. The patient's hemoglobin is still downtrending is currently down to 7.5. Hematology oncology is on the case. The white cell count at 13.6. Platelet count 300. Sodium is at 129 with a BUN of 21 and creatinine of 0.6. The patient does have a sputum sample is positive for April and the blood cultures positive for Staph epidermidis. The patient has advanced pulmonary fibrosis. The patient also has chronic dysphagia utilizing PEG tube feeding for enteral feeding and nutritional support. Hematology oncology is evaluating this patient regarding the ongoing anemia. No evidence of any acute bleeding. His reticulocyte count has been low. Vitamin B12 has been normal and the patient is on folic acid supplements. Hemoglobin is being monitored. On today's evaluation of 01/07/2024, the patient is being seen for a follow-up. No new complaints. Hemoglobin is stable at 9.4. BUN is at 21 with a creatinine of 0.6 and sodium levels at 132. Oxygenation is also stable at 3 L with a pulse ox of 98%. Continues to receive enteral feeding for nutritional support. The patient has no new complaints. The patient completed the course of IV Zosyn. Currently on antibiotic coverage. White cell count is at 16. Tolerating enteral feeding for nutritional support. No reported aspiration. No other new complaints otherwise for now. Hemoglobin is being monitored and current hemoglobin is up to 9.4. On today's evaluation of 01/08/2024, the patient has no specific complaints. He is on 3 L of oxygen by nasal cannula. Antibiotic course has been completed. He is also on a course of a prednisone burst taper currently on 40 mg. Receiving enteral feeding for nutritional support. Tolerating the diet. Labs are all stable. The white cell count is at 19 and the white cell count continues to fluctuate. Hemoglobin is 9.4 with a platelet count of 16. No significant drop in hemoglobin over the past 48 hours. BUN is at 23 with a creatinine 0.6 and a sodium levels at 134. The patient is scheduled to undergo EGD and colonoscopy for anemia in a.m. The patient is seen today January 09, 2024 in follow-up on the regular medical floor. He is currently awake and alert in no acute distress. Resting fairly comfortably in bed. Denies any worsening shortness of breath, cough or congestion. He is maintaining good O2 saturations in the upper 90s on 3 L/min per nasal cannula. He is afebrile. Hemodynamically stable. He did undergo EGD and colonoscopy this morning. He was found to have some gastritis without active bleeding. He was also found to have sigmoid diverticulosis but no active bleeding. Blood sugar 89. Most recent hemoglobin 9.4. He remains on bronchodilators and prednisone. The patient is seen today January 10, 2024 in follow-up on the regular medical floor. He is resting comfortably in bed. Awake and alert in no acute distress. He is maintaining O2 saturations in the 90s on 3 L/min per nasal cannula. His procalcitonin was 0.08. He is receiving Jevity tube feedings at 50 MLS per hour. White count 18.7. Hemoglobin 8.2. Sodium 132. Potassium 4.8. Bicarb 33. BUN 20. Creatinine 0.56. Glucose 106. Continued on bronchodilators and steroids. Continued on Lovenox for DVT prophylaxis. Sputum culture positive for April. He has been initiated on Eraxis. The patient is seen today January 11, 2024 in follow-up on the regular medical floor. He is currently awake and alert in no acute distress. Resting comfortably in bed. Denies any worsening shortness of breath, cough or congestion. Flatplate of the abdomen today did not reveal any evidence of ileus. His tube feedings have been resumed. Is maintaining good O2 saturations in the high 90s on 3 L/min per nasal cannula. He is afebrile. Hemodynamically stable. Count 11.9. Hemoglobin 8.9. Platelets 311. Sodium 132. Potassium 5.4. Bicarb 37. BUN 21. Creatinine 0.61. Glucose 77. He remains on bronchodilators, prednisone taper. Currently on Eraxis. Lovenox for DVT prophylaxis. Objective - Vital Signs Vital signs: Vital Signs Temp 98.2 F 01/11/24 07:00 Pulse 80 01/11/24 07:00 Resp 17 01/11/24 07:00 BP 110/70 01/11/24 07:00 Pulse Ox 100 01/11/24 08:29 FiO2 Intake & Output 01/10/24 01/11/24 01/11/24 18:59 06:59 18:59 Output Total 1050 1150 250 Balance -1050 -1150 -250 Weight 51.5 kg Output: Urine 1050 1150 250 Other: Voiding Method Urinal Urinal Urinal # Voids 3 # Bowel Movements 1 - Exam GENERAL EXAM: Alert, very thin 63-year-old male, resting comfortably in bed, in no apparent distress, on 3 L of oxygen nasal cannula HEAD: Normocephalic and atraumatic EYES: Normal reaction of pupils, equal size. NOSE: Clear with pink turbinates. THROAT: No erythema or exudates. NECK: No masses, no JVD. CHEST: No chest wall deformity. LUNGS: Equal air entry with inspiratory bibasilar Velcro crackles. No conversational dyspnea or accessory muscle use while at rest. CVS: S1 and S2 normal with no audible murmur, regular rhythm. No extra heart sounds ABDOMEN: No hepatosplenomegaly, active bowel sounds, no guarding or rigidity. PEG tube site clean, dry, without any drainage. SPINE: No scoliosis or deformity SKIN: No rashes CENTRAL NERVOUS SYSTEM: No focal deficits, tone is normal in all 4 extremities. EXTREMITIES: There is no peripheral edema, clubbing, or cyanosis. Peripheral pulses are intact. - Labs CBC & Chem 7: 01/11/24 09:39 01/11/24 05:47 Labs: Abnormal Lab Results - Last 24 Hours (Table) 01/07/24 01/10/24 01/10/24 Range/Units 06:03 18:07 23:30 WBC (3.8-10.6) k/uL RBC (4.30-5.90) m/uL Hgb 9.4 L D (13.0-17.5) gm/dL Hct (39.0-53.0) % MCV (80.0-100.0) fL RDW (11.5-15.5) % Neutrophils # (1.3-7.7) k/uL Macrocytosis Sodium (137-145) mmol/L Potassium (3.5-5.1) mmol/L Chloride (98-107) mmol/L Carbon Dioxide (22-30) mmol/L BUN (9-20) mg/dL Creatinine (0.66-1.25) mg/dL POC Glucose (mg/dL) 126 H 111 H (70-110) mg/dL C-Reactive Protein (<1.0) mg/dL Total Protein (6.3-8.2) g/dL Albumin (3.5-5.0) g/dL 01/11/24 01/11/24 01/11/24 Range/Units 05:47 09:39 09:39 WBC 11.9 H (3.8-10.6) k/uL RBC 2.58 L (4.30-5.90) m/uL Hgb 8.9 L (13.0-17.5) gm/dL Hct 28.3 L (39.0-53.0) % MCV 109.5 H (80.0-100.0) fL RDW 16.9 H (11.5-15.5) % Neutrophils # 9.3 H (1.3-7.7) k/uL Macrocytosis Marked A Sodium 132 L (137-145) mmol/L Potassium 5.4 H (3.5-5.1) mmol/L Chloride 94 L (98-107) mmol/L Carbon Dioxide 37 H (22-30) mmol/L BUN 21 H (9-20) mg/dL Creatinine 0.61 L (0.66-1.25) mg/dL POC Glucose (mg/dL) (70-110) mg/dL C-Reactive Protein 13.5 H (<1.0) mg/dL Total Protein 5.6 L (6.3-8.2) g/dL Albumin 2.9 L (3.5-5.0) g/dL Assessment and Plan Assessment: Acute on chronic hypoxemic respiratory failure, follow-up chest x-ray shows improvement in the patient's previous superimposed lung consolidations. There are chronic lung changes with low lung volumes and mild bibasilar atelectasis versus scarring. The patient's oxygenation is stable and the patient is currently on 3 L O2 nasal cannula. Suspect chemical pneumonitis. Procalcitonin level is nonelevated. Clinically stable. Recent hospital admission for suspected aspiration pneumonia, completed Zosyn Acute leukocytosis, improving and the white cell count is down to 11.9 Acute drop in hemoglobin. No evidence of any GI bleeding. Hemoglobin is 8.9. EGD and colonoscopy January 09, 2024 revealed no active bleeding Interstitial pulmonary fibrosis, previously maintained on Ofev, unable to take the medication as the medication is not crushable through the PEG tube Chronic hypoxemic respiratory failure, secondary to above, normally maintained on 3 L/min nasal cannula Chronic hypercapnic respiratory failure Severe generalized weakness and deconditioning Severe protein calorie malnutrition Dysphagia, status post PEG tube insertion on 12/26/2023, has been giving himself bolus feeds at home. History of alcoholism Osteoarthritis Chronic back pain Plan: The patient was seen and evaluated Labs and medications reviewed Stable and on 3 L nasal cannula Continue bronchodilators, steroids Cleared for discharge from the pulmonary standpoint Plan is for home with home care I have personally seen and examined the patient, performed the documentation and the assessment and plan as written. Number of minutes spent on the visit: 10.
--- NOTE | 2024-01-11 14:13 | P.PN ---
Subjective Progress Note Date: 01/11/24 CHIEF COMPLAINT: Anemia HISTORY OF PRESENT ILLNESS: Patient status post EGD and colonoscopy. EGD results reported gastritis without bleeding and gastrostomy tube within normal limits. Colonoscopy reported sigmoid diverticulosis. Patient had some abdominal pain last night or early this morning. They held tube feeds and ordered and abdominal x-ray. X-ray results reported gaseous nonspecific dilation of the bowel with PEG tube in place. Patient is having flatus. He denies any abdominal pain. He had a bowel movement yesterday. Denies any nausea or vomiting. Tube feeds have been restarted. WBC is down from 18.7-11.9 hemoglobin up from 8.2-8.9 PHYSICAL EXAM: VITAL SIGNS: Reviewed GENERAL: Well-developed in no acute distress. HEENT: No sclera icterus. Extraocular movements grossly intact. Moist buccal mucosa. Head is atraumatic, normocephalic. Hears conversational speech. No nasal d rainage. NECK: Supple without lymphadenopathy. CHEST: Non-labored respirations and equal bilateral excursions. CARDIOVASCULAR: Palpable 2+ radial pulses. ABDOMEN: Soft. Nondistended. Nontender. PEG tube site clean dry and intact MUSCULOSKELETAL: No clubbing or cyanosis. NEUROLOGIC: No focal or lateralizing signs. Cranial nerves II through XII grossly intact. PSYCH: Appropriate affect. Alert and oriented to person, place and time. SKIN: Well perfused. Good skin turgor. ASSESSMENT: 1. Anemia status post EGD and colonoscopy. No evidence of active bleeding. EGD reported gastritis without bleeding and colonoscopy revealed sigmoid diverticulosis 2. Recurrent aspiration, PEG tube dependent 3. Severe protein calorie malnutrition 4. Chronic respiratory failure 5. History of interstitial pulmonary fibrosis PLAN: -Patient with no active bleeding. His initial hemoglobin may have been elevated because of dehydration on admission. Hemoglobin remaining stable. -Continue tube feeds -PPI added for gastritis Physician Substitute Nurse note has been reviewed by physician. Signing provider agrees with the documented findings, assessment, and plan of care. Objective - Vital Signs Vital signs: Vital Signs Temp 97.2 F L 01/11/24 13:57 Pulse 89 01/11/24 13:57 Resp 18 01/11/24 13:57 BP 95/60 01/11/24 13:57 Pulse Ox 99 01/11/24 13:57 FiO2 Intake & Output 01/10/24 01/11/24 01/11/24 18:59 06:59 18:59 Output Total 1050 1150 250 Balance -1050 -1150 -250 Weight 51.5 kg Output: Urine 1050 1150 250 Other: Voiding Method Urinal Urinal Urinal # Voids 3 # Bowel Movements 1 - Labs CBC & Chem 7: 01/11/24 09:39 01/11/24 05:47 Labs: Abnormal Lab Results - Last 24 Hours (Table) 01/07/24 01/10/24 01/10/24 Range/Units 06:03 18:07 23:30 WBC (3.8-10.6) k/uL RBC (4.30-5.90) m/uL Hgb 9.4 L D (13.0-17.5) gm/dL Hct (39.0-53.0) % MCV (80.0-100.0) fL RDW (11.5-15.5) % Neutrophils # (1.3-7.7) k/uL Macrocytosis Sodium (137-145) mmol/L Potassium (3.5-5.1) mmol/L Chloride (98-107) mmol/L Carbon Dioxide (22-30) mmol/L BUN (9-20) mg/dL Creatinine (0.66-1.25) mg/dL POC Glucose (mg/dL) 126 H 111 H (70-110) mg/dL C-Reactive Protein (<1.0) mg/dL Total Protein (6.3-8.2) g/dL Albumin (3.5-5.0) g/dL 01/11/24 01/11/24 01/11/24 Range/Units 05:47 09:39 09:39 WBC 11.9 H (3.8-10.6) k/uL RBC 2.58 L (4.30-5.90) m/uL Hgb 8.9 L (13.0-17.5) gm/dL Hct 28.3 L (39.0-53.0) % MCV 109.5 H (80.0-100.0) fL RDW 16.9 H (11.5-15.5) % Neutrophils # 9.3 H (1.3-7.7) k/uL Macrocytosis Marked A Sodium 132 L (137-145) mmol/L Potassium 5.4 H (3.5-5.1) mmol/L Chloride 94 L (98-107) mmol/L Carbon Dioxide 37 H (22-30) mmol/L BUN 21 H (9-20) mg/dL Creatinine 0.61 L (0.66-1.25) mg/dL POC Glucose (mg/dL) (70-110) mg/dL C-Reactive Protein 13.5 H (<1.0) mg/dL Total Protein 5.6 L (6.3-8.2) g/dL Albumin 2.9 L (3.5-5.0) g/dL
--- NOTE | 2024-01-11 16:21 | P.PN ---
Subjective Progress Note Date: 01/11/24 Hospital course: Patient is a very pleasant 63-year-old male with a past medical history of pulmonary fibrosis with chronic respiratory failure on 3 and half liters nasal cannula at home, hypertension, and previous history of EtOH abuse. He presented to the emergency department 01/01/2024 for a chief complaint of chills, shakes, and generalized weakness. Patient underwent evaluation in the ER. Vital signs upon arrival patient was afebrile with a temp of 97.7 F, 139/80, heart rate 101, respiratory rate 26, and SpO2 of 84% on 5 L increasing to 100% on 6 L of nasal cannula. EKG completed showing sinus rhythm at 87 bpm with peaked T waves. Chest x-ray showing chronic lung changes with low lung volumes and mild bibasilar subsegmental atelectasis versus scarring and abnormal bowel gas pattern suggestive of possible obstruction or ileus. CT abdomen and pelvis with contrast then completed showing overall nonspecific but felt to be nonobstructive bowel gas pattern. Labs completed and reviewed. CBC showing WBC count of 22.2. ABG revealing metabolic alkalosis with pH of 7.47, pCO2 of 57, pO2 212, bicarb of 41, total CO2 of 43, and O2 sat of 99.3. BMP revealing hyponatremia with sodium of 133, hyperkalemia with potassium of 5.2, and consistent with metabolic acidosis with chloride of 84, bicarb of 39, and anion gap of 10. BUN also elevated at 30. Lactic acid 2.4. Magnesium 1.9. Liver profile showing transaminitis with AST of 60, ALT of 105, and alkaline phosphatase of 170. Troponin 0.015. proBNP 527. Patient admitted under services for acute on chronic respiratory failure with hypoxia and sepsis with consultation to pulmonology at this time. Procalcitonin negative. Leukocytosis is persistent. Microbiology showed blood cultures positive for GPC in clusters, staph epi likely contaminant. IV Zosyn discontinued. Repeat blood cultures negative. Patient became anemic with hemoglobin dropping from 13.5 down to 8.9, likely from hypoproliferation. However continued to go down and patient has symptoms secondary to this acute anemia. Hematology evaluated and concerned for GI bleed, and general surgery was consulted. General surgery evaluated and taking patient for EGD and colonoscopy today. Physical exam: Patient seen and fully evaluated at bedside this morning. Patient was resting comfortably in bed this morning. Patient reports feeling extra tired today but otherwise denies having any pain or complaints at this time. His sputum culture was positive for April albicans and patient was started on Eraxis. Patient also persistently wiping away thick plaque on lips and tongue concerning for oral candidiasis consistent with positive sputum culture. Will place patient on Magic mouthwash scheduled 4 times daily for swish and swallow only. Vital signs reviewed and stable. General: Nontoxic, no distress and appears stated age. Thin and frail. Derm: Skin warm and dry, pallor present. Head: Atraumatic, normocephalic and symmetric. Eyes: EOMs intact, no lid lag, and anicteric sclera Mouth: no lip lesions, mucus membranes moist Cardiovascular: regular rate and rhythm with normal S1S2, no murmur, positive posterior tibial pulses bilaterally, and cap refill < 2 seconds. Lungs: Respirations even, regular, and unlabored on 3 L O2 via nasal cannula. Lungs diminished with soft expiratory wheezes. No rhonchi, no rales, no wheezing. No accessory muscle usage. Abdominal: soft, nontender to palpation, no guarding, no appreciable organomegaly. Gastric tube present. Ext: ROM intact. No gross muscle atrophy, no edema, no contractures Neuro: Speech clear, face symmetrical and CN II-XII grossly intact with no noted focal neuro deficits Psych: Alert and oriented to person, place, time, and situation. Appropriate and pleasant affect. Assessment and Plan of Care: Acute on chronic respiratory failure with hypoxia Pulmonary fibrosis with chronic respiratory failure Leukocytosis, improving Aphthous ulcer with oral candidiasis. -Acute on chronic respiratory failure improved, patient on baseline oxygen needs 3 L -Pulmonology following, reviewed documentation in chart. -Infectious disease following, discussed plan of care with infectious disease physician and he is recommending continuation of Eraxis 100 mg daily. -Patient to continue with DuoNebs every 2 hours as needed for shortness of breath and/or wheezing. -Continue Magic mouthwash with Maalox, viscous lidocaine, diphenhydramine, and nystatin with strict instructions for swish and spit only as patient high risk for aspiration. Acute macrocytic anemia, bone marrow suppression vs GI bleed -Hemoglobin stable at 8.9 and leukocytosis improving with WBC count 11.9. -Hematology evaluated, recommended GI workup to rule out GI bleed -General surgery evaluated and took patient for EGD and colonoscopy on 12/25. Colonoscopy revealing sigmoid diverticulosis and grade 2 internal hemorrhoids. EGD revealing gastritis without bleeding -Continue to monitor CBC closely and transfuse if needed for hemoglobin less than 7 Recurrent aspiration, PEG tube dependent. Completed course of IV antibiotics with Zosyn. Sepsis upon arrival with lactic acid of 2.7, heart rate 101, respiratory rate 26, and WBC count of 22.2. Completed course of IV antibiotics with Zosyn. Staph epi bacteremia, contaminant. Repeat blood cultures x 2 negative showing no growth. Severe protein calorie malnutrition. Continue tube feeds, dietitian following. Chronic back pain. Continue home pain medication regimen with morphine sulfate 15 mg via PEG tube every 6 hours as needed for pain. Monitor for sedation Mild hyponatremia. Improving. Hyperkalemia. Resolved. Anxiety and Depression. Continue daily medication regimen with BuSpar 7.5 mg twice daily, Celexa 40 mg daily, and Xanax 0.5 mg 3 times daily. Hypertension. Vital signs stable on current medication regimen. Patient to continue with losartan 50 mg daily and metoprolol 12.5 mg twice daily. Data and imaging reviewed: Morning labs reviewed. CBC showing stable macrocytic anemia with hemoglobin of 8.9 and improvement of WBC count decreasing to 11.9. BMP showing mild hyponatremia with sodium of 132, hypochloremia with chloride of 94, and hypercarbia with bicarb of 37. Glucose 77. Magnesium 2.2 CRP increasing to 13.5.. Potassium was 5.4 but this was a hemolyzed specimen. Vital signs reviewed and stable. Blood pressure 110/70, heart rate 80, respiratory rate 17, temp 98.2 F, and SpO2 100% on baseline 3 L. Updated patient's on plan of care and reached out to pain management speci alist, they will be sending patient's prescriptions for morphine sulfate so they will be available for patient upon discharge. DVT ppx: Lovenox Code status: Full code Anticipated discharge place: Home with and home care Anticipated discharge time: Likely within the next 24 to 48 hours, infectious disease recommending continuation of Eraxis 100 mg daily for at least an additional 24 hours Patient was seen independently by Nurse Pracitioner. This document was prepared using [employer] dictation software. Please allow for errors in key ringer, while rare they do occur. I reviewed the documentation as provided by the STACY above, who is the original author of this note. I agree with the documented assessment and plan, with the following changes: none Objective - Vital Signs Vital signs: Vital Signs Temp 98.0 F 01/11/24 02:46 Pulse 71 01/11/24 02:46 Resp 16 01/11/24 02:46 BP 104/67 01/11/24 02:46 Pulse Ox 100 01/11/24 02:46 FiO2 Intake & Output 01/10/24 01/11/24 01/11/24 18:59 06:59 18:59 Output Total 1050 1150 Balance -1050 -1150 Weight 51.5 kg Output: Urine 1050 1150 Other: Voiding Method Urinal Urinal # Voids 3 # Bowel Movements 1 - Labs CBC & Chem 7: 01/12/24 08:26 01/12/24 08:26 Labs: Abnormal Lab Results - Last 24 Hours (Table) 01/07/24 01/10/24 01/10/24 Range/Units 06:03 09:06 18:07 WBC 18.7 H (3.8-10.6) k/uL RBC 2.38 L (4.30-5.90) m/uL Hgb 9.4 L D 8.2 L (13.0-17.5) gm/dL Hct 25.3 L (39.0-53.0) % MCV 106.3 H (80.0-100.0) fL RDW 16.9 H (11.5-15.5) % Sodium (137-145) mmol/L Potassium (3.5-5.1) mmol/L Chloride (98-107) mmol/L Carbon Dioxide (22-30) mmol/L BUN (9-20) mg/dL Creatinine (0.66-1.25) mg/dL POC Glucose (mg/dL) 126 H (70-110) mg/dL Total Protein (6.3-8.2) g/dL Albumin (3.5-5.0) g/dL 01/10/24 01/11/24 Range/Units 23:30 05:47 WBC (3.8-10.6) k/uL RBC (4.30-5.90) m/uL Hgb (13.0-17.5) gm/dL Hct (39.0-53.0) % MCV (80.0-100.0) fL RDW (11.5-15.5) % Sodium 132 L (137-145) mmol/L Potassium 5.4 H (3.5-5.1) mmol/L Chloride 94 L (98-107) mmol/L Carbon Dioxide 37 H (22-30) mmol/L BUN 21 H (9-20) mg/dL Creatinine 0.61 L (0.66-1.25) mg/dL POC Glucose (mg/dL) 111 H (70-110) mg/dL Total Protein 5.6 L (6.3-8.2) g/dL Albumin 2.9 L (3.5-5.0) g/dL
[2024-01-11 16:29] LABS: Glucose,Whole Blood 225 mg/dL (70-110)
[2024-01-12 00:37] LABS: Glucose,Whole Blood 97 mg/dL (70-110)
[2024-01-12 06:49] LABS: Glucose,Whole Blood 109 mg/dL (70-110)
[2024-01-12] MEDS: valACYclovir HCL 1,000 MG TABLET PO SCH (08:41)
--- NOTE | 2024-01-12 09:11 | P.PN ---
Subjective Progress Note Date: 01/11/24 Principal diagnosis: Reason for follow-up is positive blood culture and leukocytosis Patient is a 63-year-old male with a past medical history significant for pulmonary fibrosis EtOH abuse DTs, recently prolonged stay for aspiration pneumonia and cardiac PEG tube presenting back to the hospital with worsening shortness of breath did have a positive blood culture prompting this consultation. On today's visit that is 01/11/2024, Patient is afebrile patient is currently on 3 L nasal cannula oxygen and denies having any shortness of breath, the patient denies any chest pain or cough, the patient denies any nausea vomiting did not have any abdominal pain has developed cold sore to the lip. Patient white count is down to 11.9 CRP was 13.5 Objective - Vital Signs Vital signs: Vital Signs Temp 97.2 F L 01/11/24 13:57 Pulse 89 01/11/24 13:57 Resp 18 01/11/24 13:57 BP 95/60 01/11/24 13:57 Pulse Ox 99 01/11/24 13:57 FiO2 Intake & Output 01/10/24 01/11/24 01/11/24 18:59 06:59 18:59 Output Total 1050 1150 250 Balance -1050 -1150 -250 Weight 51.5 kg Output: Urine 1050 1150 250 Other: Voiding Method Urinal Urinal Urinal # Voids 3 # Bowel Movements 1 - Exam GENERAL DESCRIPTION: Middle-age male up in bed in no distress RESPIRATORY SYSTEM: Unlabored breathing , decreased breath sounds at bases HEART: S1 S2 regular rate and rhythm , ABDOMEN: Soft , no tenderness EXTREMITIES: No edema feet - Labs CBC & Chem 7: 01/11/24 09:39 01/11/24 05:47 Labs: Abnormal Lab Results - Last 24 Hours (Table) 01/10/24 01/10/24 01/11/24 Range/Units 18:07 23:30 05:47 WBC (3.8-10.6) k/uL RBC (4.30-5.90) m/uL Hgb (13.0-17.5) gm/dL Hct (39.0-53.0) % MCV (80.0-100.0) fL RDW (11.5-15.5) % Neutrophils # (1.3-7.7) k/uL Macrocytosis Sodium 132 L (137-145) mmol/L Potassium 5.4 H (3.5-5.1) mmol/L Chloride 94 L (98-107) mmol/L Carbon Dioxide 37 H (22-30) mmol/L BUN 21 H (9-20) mg/dL Creatinine 0.61 L (0.66-1.25) mg/dL POC Glucose (mg/dL) 126 H 111 H (70-110) mg/dL C-Reactive Protein (<1.0) mg/dL Total Protein 5.6 L (6.3-8.2) g/dL Albumin 2.9 L (3.5-5.0) g/dL 01/11/24 01/11/24 01/11/24 Range/Units 09:39 09:39 16:27 WBC 11.9 H (3.8-10.6) k/uL RBC 2.58 L (4.30-5.90) m/uL Hgb 8.9 L (13.0-17.5) gm/dL Hct 28.3 L (39.0-53.0) % MCV 109.5 H (80.0-100.0) fL RDW 16.9 H (11.5-15.5) % Neutrophils # 9.3 H (1.3-7.7) k/uL Macrocytosis Marked A Sodium (137-145) mmol/L Potassium (3.5-5.1) mmol/L Chloride (98-107) mmol/L Carbon Dioxide (22-30) mmol/L BUN (9-20) mg/dL Creatinine (0.66-1.25) mg/dL POC Glucose (mg/dL) 225 H (70-110) mg/dL C-Reactive Protein 13.5 H (<1.0) mg/dL Total Protein (6.3-8.2) g/dL Albumin (3.5-5.0) g/dL Assessment and Plan (1) Positive blood culture Current Visit: Yes Status: Acute Priority: High Code(s): R78.81 - BACTEREMIA SNOMED Code(s): 650877484 (2) Leukocytosis Current Visit: No Status: Acute Code(s): D72.829 - ELEVATED WHITE BLOOD CELL COUNT, UNSPECIFIED SNOMED Code(s): 565105389 (3) Oropharyngeal candidiasis Current Visit: Yes Status: Acute Code(s): B37.0 - CANDIDAL STOMATITIS SNOMED Code(s): 65915826 (4) Herpes labialis Current Visit: Yes Status: Acute Code(s): B00.1 - HERPESVIRAL VESICULAR DERMATITIS SNOMED Code(s): 5724026 Plan: 1patient with a positive blood culture with staph epi will likely significant admission of the patient no clinical disease to go along with it and there is no need for any vancomycin blood culture has been repeated document clearance and so far negative no need for vancomycin 2-patient with admission to hospital worsening shortness of breath possibly related to his underlying pulmonary fibrosis/tracheobronchitis, sputum has been April albicans 3-leukocytosis more likely steroid related, however sputum is growing April p ossible component of oropharyngeal candidiasis, patient white count is trending down with Eraxis cannot use Diflucan because of drug interaction we will continue with Eraxis x 1 more day and the white count normalized to finish therapy with nystatin swish and swallow x 7 days discussed with the admitting team 4-herpes labialis will give 2 doses of Valtrex as the Abreva is not formally Dictation was produced using [employer] dictation software. please excuse any grammatical, word or spelling errors. Time with Patient: Less than 30
--- NOTE | 2024-01-12 10:57 | P.DS ---
Providers Date of admission: 01/01/24 15:54 Expected date of discharge: 01/12/24 Attending physician: Lidya Gautam DO Consults: 01/01/24 15:56 Consult Physician Urgent Consulting Provider: Randal Petit Consult Reason/Comments: Pulmonary fibrosis Do you want consulting provider notified?: Yes 01/03/24 13:37 Consult Physician Routine Consulting Provider: Lindsey Thao Consult Reason/Comments: bacteremia Do you want consulting provider notified?: Yes 01/06/24 08:02 Consult Physician Routine Consulting Provider: Gerardo Castro Consult Reason/Comments: anemia Do you want consulting provider notified?: Yes 01/06/24 14:06 Consult Physician Routine Consulting Provider: Kathryn Young Consult Reason/Comments: anemia, significant drop in hgb, concern for GI bleed Do you want consulting provider notified?: Yes Primary care physician: Brian [facility] Hospital Course: Acute on chronic respiratory failure with hypoxia Pulmonary fibrosis with chronic respiratory failure Leukocytosis, improving Aphthous ulcer with oral candidiasis. Acute macrocytic anemia, bone marrow suppression vs GI bleed Recurrent aspiration, PEG tube dependent. Sepsis upon arrival with lactic acid of 2.7, heart rate 101, respiratory rate 26, and WBC count of 22.2. Severe protein calorie malnutrition. Chronic back pain. Mild hyponatremia. Hyperkalemia. Anxiety and Depression. Hypertension. Hospital course: Patient is a very pleasant 63-year-old male with a past medical history of pulmonary fibrosis with chronic respiratory failure on 3 and half liters nasal cannula at home, hypertension, and previous history of EtOH abuse. He presented to the emergency department 01/01/2024 for a chief complaint of chills, shakes, and generalized weakness. Patient underwent evaluation in the ER. Vital signs upon arrival patient was afebrile with a temp of 97.7 F, 139/80, heart rate 101, respiratory rate 26, and SpO2 of 84% on 5 L increasing to 100% on 6 L of nasal cannula. EKG completed showing sinus rhythm at 87 bpm with peaked T waves. Chest x-ray showing chronic lung changes with low lung volumes and mild bibasilar subsegmental atelectasis versus scarring and abnormal bowel gas pattern suggestive of possible obstruction or ileus. CT abdomen and pelvis with contrast then completed showing overall nonspecific but felt to be nonobstructive bowel gas pattern. Labs completed and reviewed. CBC showing WBC count of 22.2. ABG revealing metabolic alkalosis with pH of 7.47, pCO2 of 57, pO2 212, bicarb of 41, total CO2 of 43, and O2 sat of 99.3. BMP revealing hyponatremia with sodium of 133, hyperkalemia with potassium of 5.2, and consistent with metabolic acidosis with chloride of 84, bicarb of 39, and anion gap of 10. BUN also elevated at 30. Lactic acid 2.4. Magnesium 1.9. Liver profile showing transaminitis with AST of 60, ALT of 105, and alkaline phosphatase of 170. Troponin 0.015. proBNP 527. Patient admitted under services for acute on chronic respiratory failure with hypoxia and sepsis with consultation to pulmonology at this time. Procalcitonin negative. Leukocytosis is persistent. Microbiology showed blood cultures positive for GPC in clusters, staph epi likely contaminant. IV Zosyn discontinued. Repeat blood cultures negative. Patient became anemic with hemoglobin dropping from 13.5 down to 8.9, likely from hypoproliferation. However continued to go down and patient has symptoms secondary to this acute anemia. Hematology evaluated and concerned for GI bleed, and general surgery was consulted. General surgery evaluated and took patient for EGD and colonoscopy which showed grade B esophagitis, internal hemorrhoids, grade 2, and sigmoid diverticulosis, but no etiology of acute anemia. Pt remained stable thereafter, but was also noted to have leukocytosis and started on eraxis per ID. WBC did improve with this and he was discharged home with home care services. Pt should f/u with PCP, pulmonology. I spent 45 minutes coordinating this discharge on 01/11 Physical exam: Gen: In NAD, non-toxic HEENT: normocephalic, atraumatic, hearing acuity is intant, mucous membranes moist CVS: perfusing all extremities well, no pitting edema, Respiratory: symmetric chest expansion, no accessory muscle use, GI: soft, NTTP, ND, : no suprapubic tenderness, no CVA tenderness MSK/Derm: no rashes, cyanosis Neuro: CN II-XII intact, no motor weakness, Psych: cooperative, euthymic mood, judgment and insight is intact Patient Condition at Discharge: Good Plan - Discharge Summary Discharge Rx Participant: No New Discharge Prescriptions: New Morphine Sulfate Ir [MSIR] 15 mg PEG/G-TUBE Q6H 30 Days #120 tab Artificial Tears-Hypromellose [Artificial Tear Drops] 2 drops LEFT EYE QID #240 ml Mag Hydrox/Al Hydrox/Simeth [Maalox] 30 ml PO QID #1000 ml Simethicone 40 mg/0.6 ml Drops [Mylicon Drops] 40 mg PEG/G-TUBE QID #30 ml Clotrimazole Sydnee [Mycelex Sydnee] 10 mg MUCOUS MEM QID 7 Days #28 sydnee MORPHINE ORAL KIAN CONC 20mg/mL [Roxanol Oral Soln Conc 20MG/ML] 20 mg PEG/G- TUBE Q6H PRN 30 Days #30 ml PRN Reason: Pain Lidocaine Viscous 2% [Xylocaine Viscous] 30 ml PO QID #1000 ml Nystatin 100,000 Unit/ml Susp [Mycostatin Oral Susp] 3,000,000 unit PO QID #840 ml docosanoL 1 applic TOPICAL TID 5 Days #2 gram Continue Melatonin 1.5 mg PEG/G-TUBE HS Acetaminophen Oral Susp [Tylenol] 640 mg PEG/G-TUBE Q4-6H PRN PRN Reason: Pain Folic Acid 1 mg PEG/G-TUBE DAILY Citalopram Hydrobromide [CeleXA] 40 mg PEG/G-TUBE DAILY busPIRone HCL [Buspar] 7.5 mg PEG/G-TUBE BID Medihoney 80% Gel 1 applic TOPICAL DAILY Metoprolol Tartrate [Lopressor] 12.5 mg PEG/G-TUBE BID guaiFENesin [guaiFENesin Oral Solution] 400 mg PEG/G-TUBE BID Nintedanib Esylate [Ofev] 150 mg PO DIRECTED Losartan [Cozaar] 50 mg PEG/G-TUBE DAILY ALPRAZolam [Xanax] 0.5 mg PEG/G-TUBE TID Changed predniSONE See Rx Instructions .ROUTE .COMPLEX #30 tab Discontinued Morphine Sulfate 15 mg PEG/G-TUBE Q6H Discharge Medication List Citalopram Hydrobromide [CeleXA] 40 mg PEG/G-TUBE DAILY 03/25/21 [History] busPIRone HCL [Buspar] 7.5 mg PEG/G-TUBE BID 10/14/23 [History] Medihoney 80% Gel 1 applic TOPICAL DAILY 12/17/23 [History] ALPRAZolam [Xanax] 0.5 mg PEG/G-TUBE TID 01/01/24 [History] Acetaminophen Oral Susp [Tylenol] 640 mg PEG/G-TUBE Q4-6H PRN 01/01/24 [History] Folic Acid 1 mg PEG/G-TUBE DAILY 01/01/24 [History] Losartan [Cozaar] 50 mg PEG/G-TUBE DAILY 01/01/24 [History] Melatonin 1.5 mg PEG/G-TUBE HS 01/01/24 [History] Metoprolol Tartrate [Lopressor] 12.5 mg PEG/G-TUBE BID 01/01/24 [History] Nintedanib Esylate [Ofev] 150 mg PO DIRECTED 01/01/24 [History] guaiFENesin [guaiFENesin Oral Solution] 400 mg PEG/G-TUBE BID 01/01/24 [History] MORPHINE ORAL KIAN CONC 20mg/mL [Roxanol Oral Soln Conc 20MG/ML] 20 mg PEG/G-TUBE Q6H PRN 30 Days #30 ml 01/11/24 [Rx] Morphine Sulfate Ir [MSIR] 15 mg PEG/G-TUBE Q6H 30 Days #120 tab 01/11/24 [Rx] Artificial Tears-Hypromellose [Artificial Tear Drops] 2 drops LEFT EYE QID #240 ml 01/12/24 [Rx] Clotrimazole Sydnee [Mycelex Sydnee] 10 mg MUCOUS MEM QID 7 Days #28 sydnee 01/12/24 [Rx] Lidocaine Viscous 2% [Xylocaine Viscous] 30 ml PO QID #1000 ml 01/12/24 [Rx] Mag Hydrox/Al Hydrox/Simeth [Maalox] 30 ml PO QID #1000 ml 01/12/24 [Rx] Nystatin 100,000 Unit/ml Susp [Mycostatin Oral Susp] 3,000,000 unit PO QID #840 ml 01/12/24 [Rx] Simethicone 40 mg/0.6 ml Drops [Mylicon Drops] 40 mg PEG/G-TUBE QID #30 ml 01/12/24 [Rx] docosanoL 1 applic TOPICAL TID 5 Days #2 gram 01/12/24 [Rx] predniSONE See Rx Instructions .ROUTE .COMPLEX #30 tab 01/12/24 [Rx] Follow up Appointment(s)/Referral(s): Brian Arzola DO [Primary Care Provider] - 01/19/24 11:40 am [facility], [NON-STAFF] - [facility], [REFERRING] - Discharge Disposition: HOME WITH HOME HEALTH SERVICES
[2024-01-12 11:17] LABS: HCT 28.4 % (39.6-50.0); HGB 8.9 g/dL (13.0-17.0); MCH 34.5 pg (27.0-32.0); MCHC 31.3 g/dL (32.0-37.0); MCV 110.1 FL (80.0-97.0); Mean Platelet Volume 11.5 FL (9.5-12.2); NRBC Per 100 WBC 0 X 10*3/uL (0.00-0.01); Platelet Count 195 X 10*3/uL (140-440); RBC 2.58 X 10*6/uL (4.40-5.60); RDW 15.9 % (11.5-14.5); WBC 11.76 X 10*3/uL (4.50-10.00)
[2024-01-12 11:47] LABS: Magnesium 1.9 mg/dL (1.5-2.4)
[2024-01-12 11:48] LABS: ALT 22 U/L (10-49); AST 28 U/L (14-35); Albumin 3.3 g/dL (3.8-4.9); Albumin/Globulin Ratio 1.38 Ratio (1.60-3.17); Alkaline Phosphatase 104 U/L (41-126); BUN/Creat Ratio 28.83 Ratio (12.00-20.00); Blood Urea Nitrogen 17.3 mg/dL (9.0-27.0); Calcium 9.3 mg/dL (8.7-10.3); Carbon Dioxide 29.9 mmol/L (21.6-31.8); Chloride 91 mmol/L (96-109); Globulin 2.4 g/dL (1.6-3.3); Glucose 125 mg/dL (70-110); Potassium 5.2 mmol/L (3.5-5.5); Sodium 132 mmol/L (135-145); Total Bilirubin 0.6 mg/dL (0.3-1.2); Total Protein 5.7 g/dL (6.2-8.2)
[2024-01-12 12:10] LABS: Glucose,Whole Blood 137 mg/dL (70-110)
--- NOTE | 2024-01-12 13:35 | P.PN ---
Subjective Progress Note Date: 01/12/24 Patient is a 63-year-old white male with past medical history significant for advanced pulmonary fibrosis and restrictive lung disease treated with Ofev, previous ventilator dependent respiratory failure, alcoholism. Patient did have a recent prolonged and complicated hospitalization 12/16/2023 through 0 12/28/2023. He was treated for aspiration pneumonia. He did undergo a swallow evaluation showed aspiration with various consistencies. He did have a a PEG tube placed 12/26/2023. Patient returned to the emergency room yesterday afternoon complaining of severe weakness. He has no other specific complaints. He denies any change in his chronic shortness of breath. He does have a chronic cough. Currently, he is producing some clear sputum. No fevers. No chest pain. A follow-up chest x-ray showed chronic lung changes with low lung volumes and mild bibasilar atelectasis. Improvement in the patient's previous consolidative lung infiltrates. There is abnormal gas pattern suggestive of pos sible obstruction or severe ileus. This was followed up with an abdominal and pelvis CT which showed a likely nonobstructive bowel gas pattern. Patient is currently lying in bed on 4 L/min nasal cannula, in no acute distress. He actually has no specific complaints other than generalized and severe weakness. He has had to use a wheelchair to get around. His daughter and son-in-law have moved in to help him. He has been using his PEG tube for bolus feeding. Denies nausea, vomiting, abdominal pain. He has had loose bowel movements. He has not been able to take his Ofev, he states that frame bander does not recommend crushing and putting through PEG tube. An ABG was done in the emergency room, which showed a component of compensated chronic hypercapnic respiratory failure. CBC on arrival: WBC count 22, hemoglobin 16.3, hematocrit 50.3, platelets 395. CMP on arrival: Sodium 133, potassium 5.2, chloride 84, serum bicarb 39, BUN 30, creatinine 0.69, glucose 157. Lactic acid level 2.7 down to 1.7. LFTs mildly elevated. Troponin 0.015. NT proBNP 527. In the emergency room, the patient was continued on Zosyn. Currently afebrile. Hemodynamically stable. The patient was seen today and the patient is currently on 40s of oxygen by nasal cannula. He continues to have some cough and congestion.The patient blood work shows leukocytosis with a white cell count of 25 which is slightly higher compared to yesterday with a hemoglobin of 13.5 which is lower compared to yesterday. Platelet counts are stable at 313. The patient is having normal renal function with a BUN of 22 and a creatinine of 0.6 and sodium levels at 132. Procalcitonin level came back at 0.08. The scleroderma antibodies are negative. RUBY was also negative. I reviewed the CAT scan of the abdomen and pe lvis and the CAT scan shows chronic scarring and bronchiectatic change in lung bases. Prominent pulmonary arteries consistent with pulm hypertension. Rest of the intra-abdominal structures were essentially within normal limits and the PEG tube is in a good location. There are some nonspecific bowel gas pattern without any evidence of any obstruction or small bowel dilatation. As for the chest x-ray that was done at time of admission, it shows a smaller lung volumes, some atelectatic changes and chronic scarring lung base bilaterally consistent with with his underlying pulmonary fibrosis. Aspiration was suspected and the patient remains on IV Zosyn. Patient is also on DuoNeb nebulized treatments [id number]. The patient is on IV Solu-Medrol 60 mg every 6 hours. Rest of the home medication have been resumed. The patient on Lovenox for DVT prophylaxis. On 01/03/2024, the patient is being seen for a follow-up. The patient is feeling better on today's evaluation. The patient is down to 2 L of oxygen by nasal cannula which is his baseline oxygen requirements. Denies having any chest pain. No other significant events overnight. The white cell count remains elevated at 25.5 with a hemoglobin 8.6 and a platelet count of 314. BUN is at 31 with a creatinine of 0.7 and sodium levels at 132. Procalcitonin level was low at 0.08. The patient remains on DuoNeb updrafts. The patient remains on IV Solu-Medrol 60 mg every 6 hours. The patient remains on IV Zosyn which is essentially empiric antibiotic coverage. Blood cultures are negative thus far. The patient was also started on enteral feeding for nutritional support and the patient is currently on Jevity 1.2 at the rate of 42 cc an hour. Overnight, the patient is in a episode of hypotension with a systolic blood pressure in the low 70s. The patient was given a liter bolus and currently is normotensive. Denies having any chest pain. No altered mentation. No chest pain. No other significant events otherwise. On today's evaluation of 01/04/2024, the patient is doing well. No specific complaints. Feeling better and stronger compared to yesterday. He is on 2 L of oxygen by nasal cannula with a pulse ox of 99%. Afebrile. Hemodynamically stable. White cell count is at 25 which remains elevated and I think this is partly related to steroids. I am going to discontinue the IV Solu-Medrol and the patient will be started on oral prednisone. White cell count is stable at 8.9. This is stable compared to yesterday. Nevertheless, the patient experienced a significant drop in the hemoglobin since his previous admissions. No evidence of any GI bleeding at this point in time. PEG tube site is clean and the patient is having enteral feeding for nutritional support. No reported aspiration at this point in time. Microbiology from the blood cultures showing gram-positive cocci in clusters and this is consistent with coagulase-negative staph. BUN is at 26 with a creatinine of 0.7 and a sodium levels at 132 with a potassium level of 5.2.This patient did not show any signs of any GI bleeding. He did encounter a brief episode of hypotension 48 hours ago and this recovered with IV fluids and he has been normotensive since. He is feeling fine. Hemoglobin is being monitored. On today's evaluation of 01/05/2024, no new complaints. The patient was encouraged improving and the patient's white count down to 16.7, it was at 7.9, and a platelet count is at 275. He is afebrile. Currently on 3 Suboxone by nasal cannula with a pulse ox of 99%. Continues to receive enteral feeding for nutritional support. Clearance was given to swallow his Ofev tablets regarding his IPF. Is currently on prednisone burst taper starting with 40 mg. Remains on DuoNeb updrafts. Rest of the medication remains unchanged. No altered mentation for now. The patient has developed some acute drop in hemoglobin down to 7.9. The hemoglobin has been steadily dropping since admission. No signs of any acute bleeding. Medical team is aware of the drop in hemoglobin this is being monitored very closely. On today's evaluation of 01/06/2024, the patient is being seen for a follow-up. No significant change in his respiratory status. The patient's hemoglobin is still downtrending is currently down to 7.5. Hematology oncology is on the case. The white cell count at 13.6. Platelet count 300. Sodium is at 129 with a BUN of 21 and creatinine of 0.6. The patient does have a sputum sample is positive for April and the blood cultures positive for Staph epidermidis. The patient has advanced pulmonary fibrosis. The patient also has chronic dysphagia utilizing PEG tube feeding for enteral feeding and nutritional support. Hematology oncology is evaluating this patient regarding the ongoing anemia. No evidence of any acute bleeding. His reticulocyte count has been low. Vitamin B12 has been normal and the patient is on folic acid supplements. Hemoglobin is being monitored. On today's evaluation of 01/07/2024, the patient is being seen for a follow-up. No new complaints. Hemoglobin is stable at 9.4. BUN is at 21 with a creatinine of 0.6 and sodium levels at 132. Oxygenation is also stable at 3 L with a pulse ox of 98%. Continues to receive enteral feeding for nutritional support. The patient has no new complaints. The patient completed the course of IV Zosyn. Currently on antibiotic coverage. White cell count is at 16. Tolerating enteral feeding for nutritional support. No reported aspiration. No other new complaints otherwise for now. Hemoglobin is being monitored and current hemoglobin is up to 9.4. On today's evaluation of 01/08/2024, the patient has no specific complaints. He is on 3 L of oxygen by nasal cannula. Antibiotic course has been completed. He is also on a course of a prednisone burst taper currently on 40 mg. Receiving enteral feeding for nutritional support. Tolerating the diet. Labs are all stable. The white cell count is at 19 and the white cell count continues to fluctuate. Hemoglobin is 9.4 with a platelet count of 16. No significant drop in hemoglobin over the past 48 hours. BUN is at 23 with a creatinine 0.6 and a sodium levels at 134. The patient is scheduled to undergo EGD and colonoscopy for anemia in a.m. The patient is seen today January 09, 2024 in follow-up on the regular medical floor. He is currently awake and alert in no acute distress. Resting fairly comfortably in bed. Denies any worsening shortness of breath, cough or congestion. He is maintaining good O2 saturations in the upper 90s on 3 L/min per nasal cannula. He is afebrile. Hemodynamically stable. He did undergo EGD and colonoscopy this morning. He was found to have some gastritis without active bleeding. He was also found to have sigmoid diverticulosis but no active bleeding. Blood sugar 89. Most recent hemoglobin 9.4. He remains on bronchodilators and prednisone. The patient is seen today January 10, 2024 in follow-up on the regular medical floor. He is resting comfortably in bed. Awake and alert in no acute distress. He is maintaining O2 saturations in the 90s on 3 L/min per nasal cannula. His procalcitonin was 0.08. He is receiving Jevity tube feedings at 50 MLS per hour. White count 18.7. Hemoglobin 8.2. Sodium 132. Potassium 4.8. Bicarb 33. BUN 20. Creatinine 0.56. Glucose 106. Continued on bronchodilators and steroids. Continued on Lovenox for DVT prophylaxis. Sputum culture positive for April. He has been initiated on Eraxis. The patient is seen today January 11, 2024 in follow-up on the regular medical floor. He is currently awake and alert in no acute distress. Resting comfortably in bed. Denies any worsening shortness of breath, cough or congestion. Flatplate of the abdomen today did not reveal any evidence of ileus. His tube feedings have been resumed. Is maintaining good O2 saturations in the high 90s on 3 L/min per nasal cannula. He is afebrile. Hemodynamically stable. Count 11.9. Hemoglobin 8.9. Platelets 311. Sodium 132. Potassium 5.4. Bicarb 37. BUN 21. Creatinine 0.61. Glucose 77. He remains on bronchodilators, prednisone taper. Currently on Eraxis. Lovenox for DVT prophylaxis. The patient is seen today January 12, 2024 in follow-up on the regular medical floor. He is resting comfortably in bed. Awake and alert in no acute distress. He denies any abdominal discomfort. His PEG tube feedings have been resumed. He is maintaining good O2 saturations up to 100% on 3 L/min per nasal cannula. He has been afebrile. Hemodynamically stable. White count 11.7. Hemoglobin 8.9. Platelets 195. Sodium 132. Potassium 5.2. Bicarb 30. BUN 17. Creatinine 0.6. He remains on bronchodilators, prednisone taper. Continued on Eraxis. Lovenox for DVT prophylaxis. Objective - Vital Signs Vital signs: Vital Signs Temp 97.6 F 01/12/24 07:20 Pulse 92 01/12/24 07:40 Resp 18 01/12/24 07:40 BP 116/80 01/12/24 07:20 Pulse Ox 100 01/12/24 09:14 FiO2 Intake & Output 01/11/24 01/12/24 01/12/24 18:59 06:59 18:59 Intake Total 240 Output Total 400 500 650 Balance -400 260 -650 Weight 50.5 kg Intake: Oral 240 Output: Urine 400 500 650 Other: Voiding Method Urinal Urinal Urinal # Voids 200 - Exam GENERAL EXAM: Alert, very thin 63-year-old male, in no apparent distress, on 3 L of oxygen nasal cannula HEAD: Normocephalic and atraumatic EYES: Normal reaction of pupils, equal size. NOSE: Clear with pink turbinates. THROAT: No erythema or exudates. NECK: No masses, no JVD. CHEST: No chest wall deformity. LUNGS: Equal air entry with inspiratory bibasilar Velcro crackles. No conversational dyspnea or accessory muscle use while at rest. CVS: S1 and S2 normal with no audible murmur, regular rhythm. No extra heart sounds ABDOMEN: No hepatosplenomegaly, active bowel sounds, no guarding or rigidity. PEG tube site clean, dry, without any drainage. SPINE: No scoliosis or deformity SKIN: No rashes CENTRAL NERVOUS SYSTEM: No focal deficits, tone is normal in all 4 extremities. EXTREMITIES: There is no peripheral edema, clubbing, or cyanosis. Peripheral pulses are intact. - Labs CBC & Chem 7: 01/12/24 08:26 01/12/24 08:26 Labs: Abnormal Lab Results - Last 24 Hours (Table) 01/11/24 01/12/24 01/12/24 Range/Units 16:27 08:26 08:26 WBC 11.76 H (4.50-10.00) X 10*3/uL RBC 2.58 L (4.40-5.60) X 10*6/uL Hgb 8.9 L (13.0-17.0) g/dL Hct 28.4 L (39.6-50.0) % MCV 110.1 H (80.0-97.0) FL MCH 34.5 H (27.0-32.0) pg MCHC 31.3 L (32.0-37.0) g/dL RDW 15.9 H (11.5-14.5) % Sodium 132 L (135-145) mmol/L Chloride 91 L (96-109) mmol/L BUN/Creatinine Ratio 28.83 H (12.00-20.00) Ratio Glucose 125 H (70-110) mg/dL POC Glucose (mg/dL) 225 H (70-110) mg/dL Total Protein 5.7 L (6.2-8.2) g/dL Albumin 3.3 L (3.8-4.9) g/dL Albumin/Globulin Ratio 1.38 L (1.60-3.17) Ratio 01/12/24 Range/Units 12:09 WBC (4.50-10.00) X 10*3/uL RBC (4.40-5.60) X 10*6/uL Hgb (13.0-17.0) g/dL Hct (39.6-50.0) % MCV (80.0-97.0) FL MCH (27.0-32.0) pg MCHC (32.0-37.0) g/dL RDW (11.5-14.5) % Sodium (135-145) mmol/L Chloride (96-109) mmol/L BUN/Creatinine Ratio (12.00-20.00) Ratio Glucose (70-110) mg/dL POC Glucose (mg/dL) 137 H (70-110) mg/dL Total Protein (6.2-8.2) g/dL Albumin (3.8-4.9) g/dL Albumin/Globulin Ratio (1.60-3.17) Ratio Assessment and Plan Assessment: Acute on chronic hypoxemic respiratory failure, follow-up chest x-ray shows improvement in the patient's previous superimposed lung consolidations. There are chronic lung changes with low lung volumes and mild bibasilar atelectasis versus scarring. The patient's oxygenation is stable and the patient is cur rently on 3 L O2 nasal cannula. Suspect chemical pneumonitis. Procalcitonin level is nonelevated. Clinically stable. Recent hospital admission for suspected aspiration pneumonia, completed Zosyn Acute leukocytosis, improving and the white cell count is down to 11.7 Acute drop in hemoglobin. No evidence of any GI bleeding. Hemoglobin is 8.9. EGD and colonoscopy January 09, 2024 revealed no active bleeding Interstitial pulmonary fibrosis, previously maintained on Ofev, unable to take the medication as the medication is not crushable through the PEG tube Chronic hypoxemic respiratory failure, secondary to above, normally maintained on 3 L/min nasal cannula Chronic hypercapnic respiratory failure Severe generalized weakness and deconditioning Severe protein calorie malnutrition Dysphagia, status post PEG tube insertion on 12/26/2023, has been giving himself bolus feeds at home. History of alcoholism Osteoarthritis Chronic back pain Plan: The patient was seen and evaluated Labs and medications reviewed Stable and on 3 L nasal cannula Continue bronchodilators, steroids Plan is for home with home care at discharge Follow up in our office in 1 week I have personally seen and examined the patient, performed the documentation and the assessment and plan as written. Number of minutes spent on the visit: 10.
[2024-01-12 15:12] VITALS: BP 98/68; PULSE 91; RESP 17; TEMP 98.4; BMI 16.4
--- NOTE | 2024-01-12 15:16 | P.PN ---
Subjective Progress Note Date: 01/12/24 Principal diagnosis: Reason for follow-up is positive blood culture and leukocytosis Patient is a 63-year-old male with a past medical history significant for pulmonary fibrosis EtOH abuse DTs, recently prolonged stay for aspiration pneumonia and cardiac PEG tube presenting back to the hospital with worsening shortness of breath did have a positive blood culture prompting this consultation. On today's visit that is 01/12/2024, patient has been afebrile, patient is breathing comfortably and is currently on 3 L nasal cannula oxygen, patient denies having any significant cough no chest pain shortness of breath, patient denies nausea vomiting or diarrhea and no abdominal pain, feeling better. Patient white count is 11.76 today, creatinine 0.6 Objective - Vital Signs Vital signs: Vital Signs Temp 97.6 F 01/12/24 07:20 Pulse 92 01/12/24 07:20 Resp 18 01/12/24 07:20 BP 116/80 01/12/24 07:20 Pulse Ox 100 01/12/24 09:14 FiO2 Intake & Output 01/11/24 01/12/24 01/12/24 18:59 06:59 18:59 Intake Total 240 Output Total 400 500 650 Balance -400 -260 -650 Weight 50.5 kg Intake: Oral 240 Output: Urine 400 500 650 Other: Voiding Method Urinal Urinal - Exam GENERAL DESCRIPTION: Middle-age male up in bed in no distress RESPIRATORY SYSTEM: Unlabored breathing , decreased breath sounds at bases HEART: S1 S2 regular rate and rhythm , ABDOMEN: Soft , no tenderness EXTREMITIES: No edema feet - Labs CBC & Chem 7: 01/12/24 08:26 01/12/24 08:26 Labs: Abnormal Lab Results - Last 24 Hours (Table) 01/11/24 01/11/24 Range/Units 09:39 16:27 POC Glucose (mg/dL) 225 H (70-110) mg/dL C-Reactive Protein 13.5 H (<1.0) mg/dL Assessment and Plan (1) Positive blood culture Current Visit: Yes Status: Acute Priority: High Code(s): R78.81 - BACTEREMIA SNOMED Code(s): 413625360 (2) Leukocytosis Current Visit: No Status: Acute Code(s): D72.829 - ELEVATED WHITE BLOOD CELL COUNT, UNSPECIFIED SNOMED Code(s): 347867569 (3) Oropharyngeal candidiasis Current Visit: Yes Status: Acute Code(s): B37.0 - CANDIDAL STOMATITIS SNOMED Code(s): 73394847 (4) Herpes labialis Current Visit: Yes Status: Acute Code(s): B00.1 - HERPESVIRAL VESICULAR DERMATITIS SNOMED Code(s): 0941997 Plan: 1patient with a positive blood culture with staph epi will likely significant admission of the patient no clinical disease to go along with it and there is no need for any vancomycin blood culture has been repeated document clearance and so far negative no need for vancomycin 2-patient with admission to hospital worsening shortness of breath possibly related to his underlying pulmonary fibrosis/tracheobronchitis, sputum has been April albicans 3-leukocytosis more likely steroid related, however sputum is growing April possible component of oropharyngeal candidiasis, patient white count is trending down with Eraxis cannot use Diflucan because of drug interaction, as received Eraxis will be able to finish therapy with Mycelex torches discussed with the admitting team 4-herpes labialis received a dose of Valtrex finishing therapy with local Abreva cream x 5 days Dictation was produced using [employer] dictation software. please excuse any grammatical, word or spelling errors. Time with Patient: Less than 30
--- NOTE | 2024-01-12 15:41 | P.PN ---
Subjective Progress Note Date: 01/12/24 CHIEF COMPLAINT: Anemia HISTORY OF PRESENT ILLNESS: Patient status post EGD and colonoscopy. EGD results reported gastritis without bleeding and gastrostomy tube within normal limits. Colonoscopy reported sigmoid diverticulosis. Patient denies any abdominal pain. Tolerating tube feeds. He did have a bowel movement. Reports no blood in the stool or black stools. Hemoglobin stable at 8.9 PHYSICAL EXAM: VITAL SIGNS: Reviewed GENERAL: Well-developed in no acute distress. HEENT: No sclera icterus. Extraocular movements grossly intact. Moist buccal mucosa. Head is atraumatic, normocephalic. Hears conversational speech. No nasal drainage. NECK: Supple without lymphadenopathy. CHEST: Non-labored respirations and equal bilateral excursions. CARDIOVASCULAR: Palpable 2+ radial pulses. ABDOMEN: Soft. Nondistended. Nontender. PEG tube site clean dry and intact MUSCULOSKELETAL: No clubbing or cyanosis. NEUROLOGIC: No focal or lateralizing signs. Cranial nerves II through XII tamiko ssly intact. PSYCH: Appropriate affect. Alert and oriented to person, place and time. SKIN: Well perfused. Good skin turgor. ASSESSMENT: 1. Anemia status post EGD and colonoscopy. No evidence of active bleeding. EGD reported gastritis without bleeding and colonoscopy revealed sigmoid divert iculosis 2. Recurrent aspiration, PEG tube dependent 3. Severe protein calorie malnutrition 4. Chronic respiratory failure 5. History of interstitial pulmonary fibrosis PLAN: -Patient with no active bleeding. His initial hemoglobin may have been elevated because of dehydration on admission. Hemoglobin remaining stable. -Continue tube feeds -PPI added for gastritis -Patient can be discharged from surgical standpoint -Surgical service will sign off. Please call with any questions or concerns Physician News Department Intern note has been reviewed by physician. Signing provider agrees with the documented findings, assessment, and plan of care. Objective - Vital Signs Vital signs: Vital Signs Temp 98.4 F 01/12/24 13:15 Pulse 91 01/12/24 13:15 Resp 17 01/12/24 13:15 BP 98/68 01/12/24 13:15 Pulse Ox 100 01/12/24 13:15 FiO2 Intake & Output 01/11/24 01/12/24 01/12/24 18:59 06:59 18:59 Intake Total 240 Output Total 400 500 650 Balance -400 -260 -650 Weight 50.5 kg 50.5 kg Intake: Oral 240 Output: Urine 400 500 650 Other: Voiding Method Urinal Urinal Urinal # Voids 200 - Labs CBC & Chem 7: 01/12/24 08:26 01/12/24 08:26 Labs: Abnormal Lab Results - Last 24 Hours (Table) 01/11/24 01/12/24 01/12/24 Range/Units 16:27 08:26 08:26 WBC 11.76 H (4.50-10.00) X 10*3/uL RBC 2.58 L (4.40-5.60) X 10*6/uL Hgb 8.9 L (13.0-17.0) g/dL Hct 28.4 L (39.6-50.0) % MCV 110.1 H (80.0-97.0) FL MCH 34.5 H (27.0-32.0) pg MCHC 31.3 L (32.0-37.0) g/dL RDW 15.9 H (11.5-14.5) % Sodium 132 L (135-145) mmol/L Chloride 91 L (96-109) mmol/L BUN/Creatinine Ratio 28.83 H (12.00-20.00) Ratio Glucose 125 H (70-110) mg/dL POC Glucose (mg/dL) 225 H (70-110) mg/dL Total Protein 5.7 L (6.2-8.2) g/dL Albumin 3.3 L (3.8-4.9) g/dL Albumin/Globulin Ratio 1.38 L (1.60-3.17) Ratio 01/12/24 Range/Units 12:09 WBC (4.50-10.00) X 10*3/uL RBC (4.40-5.60) X 10*6/uL Hgb (13.0-17.0) g/dL Hct (39.6-50.0) % MCV (80.0-97.0) FL MCH (27.0-32.0) pg MCHC (32.0-37.0) g/dL RDW (11.5-14.5) % Sodium (135-145) mmol/L Chloride (96-109) mmol/L BUN/Creatinine Ratio (12.00-20.00) Ratio Glucose (70-110) mg/dL POC Glucose (mg/dL) 137 H (70-110) mg/dL Total Protein (6.2-8.2) g/dL Albumin (3.8-4.9) g/dL Albumin/Globulin Ratio (1.60-3.17) Ratio
== END 2024-01-12 16:01 | disposition home health service (06) | DRG 871 ==
LOC: EC 13:54 → 3SCARD 15:54 → 4SSUR 01-04 22:00
PROVIDERS: ADMIT Internal Medicine; ATTEND Internal Medicine
PROC: 05HY33Z Insertion of Infusion Device into Upper Vein, Percutaneous Approach (ICD-10-PCS; 2024-01-05 12:30)
PROC: 05HA33Z Insertion of Infusion Device into Left Brachial Vein, Percutaneous Approach (ICD-10-PCS; 2024-01-09)
PROC: 0DJD8ZZ Inspection of Lower Intestinal Tract, Via Natural or Artificial Opening Endoscopic (ICD-10-PCS; principal; 2024-01-09 07:45)
PROC: 0DJ08ZZ Inspection of Upper Intestinal Tract, Via Natural or Artificial Opening Endoscopic (ICD-10-PCS; principal; 2024-01-09 07:45)
DX: A41.9 Sepsis, unspecified organism (principal); E43 Unspecified severe protein-calorie malnutrition; J96.21 Acute and chronic respiratory failure with hypoxia; J96.22 Acute and chronic respiratory failure with hypercapnia; B37.0 Candidal stomatitis; D62 Acute posthemorrhagic anemia; Z68.1 Body mass index [BMI] 19.9 or less, adult; E87.1 Hypo-osmolality and hyponatremia; E87.3 Alkalosis; F11.20 Opioid dependence, uncomplicated; J98.11 Atelectasis; K22.10 Ulcer of esophagus without bleeding; R64 Cachexia; J68.0 Bronchitis and pneumonitis due to chemicals, gases, fumes and vapors; I10 Essential (primary) hypertension; I27.20 Pulmonary hypertension, unspecified; F32.A Depression, unspecified; L89.151 Pressure ulcer of sacral region, stage 1; I95.9 Hypotension, unspecified; F10.21 Alcohol dependence, in remission; J84.112 Idiopathic pulmonary fibrosis; B00.1 Herpesviral vesicular dermatitis; D53.9 Nutritional anemia, unspecified; E87.5 Hyperkalemia; E87.6 Hypokalemia; G89.4 Chronic pain syndrome; M54.9 Dorsalgia, unspecified; F41.9 Anxiety disorder, unspecified; V89.2XXS Person injured in unspecified motor-vehicle accident, traffic, sequela; K57.30 Diverticulosis of large intestine without perforation or abscess without bleeding; Z87.01 Personal history of pneumonia (recurrent); K12.0 Recurrent oral aphthae; K29.70 Gastritis, unspecified, without bleeding; K64.1 Second degree hemorrhoids; M41.9 Scoliosis, unspecified; M47.816 Spondylosis without myelopathy or radiculopathy, lumbar region; M48.00 Spinal stenosis, site unspecified; T38.0X5A Adverse effect of glucocorticoids and synthetic analogues, initial encounter; D72.829 Elevated white blood cell count, unspecified; Z93.1 Gastrostomy status; Z99.3 Dependence on wheelchair; Z79.899 Other long term (current) drug therapy; Z79.52 Long term (current) use of systemic steroids
CPT/HCPCS: 36410; 36415; 36600; 43235; 45378; 71045; 71046; 74018; 74177; 76937; 80048; 80053; 82525; 82607; 82728; 82746; 82805; 83010; 83516; 83540; 83550; 83605; 83615; 83735; 83880; 83921; 84145; 84466; 84484; 85025; 85027; 85045; 85610; 85730; 86038; 86140; 86235; 87040; 87070; 87077; 87186; 87205; 93005; 94640; 94760; 96365; 96375; 99285

== ENCOUNTER 2024-01-23 10:40 | Emergency (ER) | payer MEDICARE ==
--- NOTE | 2024-01-23 11:29 | ED ---
Weakness HPI - General Chief complaint: Weakness Stated complaint: Hypotension Time Seen by Provider: 01/23/24 11:28 Source: patient, family, RN notes reviewed, old records reviewed Mode of arrival: wheelchair Limitations: no limitations - History of Present Illness Initial comments: This is a 63-year-old male to the ER today. He is presenting today for evaluation regards to low blood pressure, patient comes from pain clinic for low blood pressure admits to decreased appetite and decreased intake, patient was at pain clinic for pain management and follow-up, patient was found to have low blood pressure and was recently started on 2 new blood pressure medications. Patient has no fevers or no other new significant complaints MD Complaint: generalized weakness, focal weakness, lack of energy -: days(s) Location: generalized Severity: moderate Severity scale (1-10): 7 Quality: numbness, aching Consistency: constant Improves with: none Worsens with: none Context: recent illness, history of similar Associated Symptoms: confusion, loss of appetite, nausea/vomiting, shortness of breath - Related Data Home Medications Medication Instructions Recorded Confirmed Citalopram Hydrobromide [CeleXA] 40 mg PEG/G-TUBE DAILY 03/25/21 01/23/24 busPIRone HCL [Buspar] 7.5 mg PEG/G-TUBE BID 10/14/23 01/23/24 Medihoney 80% Gel 1 applic TOPICAL DAILY 12/17/23 01/23/24 Acetaminophen Oral Susp [Tylenol] 640 mg PEG/G-TUBE Q4-6H PRN 01/01/24 01/23/24 Folic Acid 1 mg PEG/G-TUBE DAILY 01/01/24 01/23/24 Losartan [Cozaar] 50 mg PEG/G-TUBE DAILY 01/01/24 01/23/24 Melatonin 1.5 mg PEG/G-TUBE HS 01/01/24 01/23/24 Metoprolol Tartrate [Lopressor] 12.5 mg PEG/G-TUBE BID 01/01/24 01/23/24 Nintedanib Esylate [Ofev] 150 mg PO DIRECTED 01/01/24 01/23/24 guaiFENesin [guaiFENesin Oral 400 mg PEG/G-TUBE BID 01/01/24 01/23/24 Solution] Magic 5 ml PO QID PRN 01/23/24 01/23/24 Mouthwash(Nystatin/Lidocaine/Benadryl/Maalox) predniSONE See Taper PEG/G-TUBE DAILY 01/23/24 01/23/24 Previous Rx's Medication Instructions Recorded ALPRAZolam [Xanax] 0.5 mg PEG/G-TUBE TID #90 tab 01/12/24 Clotrimazole Sydnee [Mycelex 10 mg MUCOUS MEM QID 7 Days #28 01/12/24 Sydnee] sydnee Simethicone 40 mg/0.6 ml Drops 40 mg PEG/G-TUBE QID #30 ml 01/12/24 [Mylicon Drops] MORPHINE ORAL KIAN CONC 20mg/mL 20 mg PEG/G-TUBE Q6H PRN #120 ml 01/24/24 [Roxanol Oral Soln Conc 20MG/ML] MORPHINE ORAL KIAN CONC 20mg/mL 20 mg PEG/G-TUBE Q6H PRN #120 ml 01/24/24 [Roxanol Oral Soln Conc 20MG/ML] MORPHINE ORAL KIAN CONC 20mg/mL 20 mg PO Q6H PRN 30 Days #120 ml 01/24/24 [Roxanol Oral Soln Conc 20MG/ML] Allergies Allergy/AdvReac Type Severity Reaction Status Date / Time No Known Allergies Allergy Verified 01/23/24 10:54 Review of Systems ROS Statement: Those systems with pertinent positive or pertinent negative responses have been documented in the HPI. ROS Other: All systems not noted in ROS Statement are negative. Past Medical History Past Medical History: Musculoskeletal Disorder Additional Past Medical History / Comment(s): ETOH abuse, DTs, chronic low back pain/herniated discs/scoliosis/spinal stenosis, right shoulder, pulmonary fibrosis, Home O2 3L, cystic fibrosis History of Any Multi-Drug Resistant Organisms: None Reported Past Surgical History: Orthopedic Surgery Additional Past Surgical History / Comment(s): R ankle fx with surgical repair- pin in and out, back injections at [facility]. Left knee Past Anesthesia/Blood Transfusion Reactions: No Reported Reaction Additional Past Anesthesia/Blood Transfusion Reaction / Comment(s): Pt has never received blood. Past Psychological History: Anxiety, Depression Smoking Status: Never smoker Past Alcohol Use History: None Reported Past Drug Use History: None Reported - Past Family History Father Family Medical History: Dementia Additional Family Medical History / Comment(s): Father is . Mother Family Medical History: Cancer Additional Family Medical History / Comment(s): Mother at age 64yrs of pancreatic cancer. General Exam Limitations: no limitations General appearance: alert, in no apparent distress Head exam: Present: atraumatic, normocephalic, normal inspection Eye exam: Present: normal appearance, PERRL, EOMI. Absent: scleral icterus, conjunctival injection, periorbital swelling ENT exam: Present: normal exam, mucous membranes moist Neck exam: Present: normal inspection. Absent: tenderness, meningismus, lymphadenopathy Respiratory exam: Present: normal lung sounds bilaterally. Absent: respiratory distress, wheezes, rales, rhonchi, stridor Cardiovascular Exam: Present: regular rate, normal rhythm, normal heart sounds. Absent: systolic murmur, diastolic murmur, rubs, gallop, clicks GI/Abdominal exam: Present: soft, normal bowel sounds. Absent: distended, tenderness, guarding, rebound, rigid Extremities exam: Present: normal inspection, full ROM, normal capillary refill. Absent: tenderness, pedal edema, joint swelling, calf tenderness Back exam: Present: normal inspection Neurological exam: Present: alert, oriented X3, CN II-XII intact Psychiatric exam: Present: normal affect, normal mood Skin exam: Present: warm, dry, intact, normal color. Absent: rash Course Vital Signs 01/23/24 01/23/24 01/23/24 10:46 15:45 15:50 Temperature 96.4 F L 98.7 F Pulse Rate 88 99 Respiratory 20 16 Rate Blood Pressure 80/49 86/52 O2 Sat by Pulse 92 L 98 Oximetry - Reevaluation(s) Reevaluation #1: 01/23/24 12:45 Medical records reviewed Reevaluation #2: 01/23/24 12:46 Patient symptoms are improved Reevaluation #3: 01/23/24 12:46 Patient informed of results and questions answered Reevaluation #4: Was pt. sent in by a medical professional or institution (, PA, VARITYPIST, urgent care, hospital, or [place] health [place] facility...) When possible be specific @ -no Did you speak to anyone other than the patient for history (EMS, parent, family, police, friend...)? What history was obtained from this source @ -no Did you review nursing and triage notes (agree or disagree)? Why? @ -agree Are old charts reviewed (outside hosp., previous admission, EMS record, old EKG, old radiological studies, urgent care reports/EKG's, [place] health care facility records)? Report findings @ -yes Differential Diagnosis (chest pain, altered mental status, abdominal pain women, abdominal pain men, vaginal bleeding, weakness, fever, dyspnea, syncope, headache, dizziness, GI bleed, back pain, seizure, CVA, palpatations, mental health, musculoskeletal)? @ -prior EKG interpreted by me (3pts min.). @ -yes X-rays interpreted by me (1pt min.). @ -yes negative for acute disease CT interpreted by me (1pt min.). @ -no U/S interpreted by me (1pt. min.). @ -no What testing was considered but not performed or refused? (CT, X-rays, U/S, labs)? Why? @ -none What meds were considered but not given or refused? Why? @ -none Did you discuss the management of the patient with other professionals (professionals i.e. , PA, VARITYPIST, lab, RT, psych nurse, criminal justice social worker, bedspread folder, teacher, crime prevention police officer, case assistant)? Give summary @ -no Was smoking cessation discussed for >3mins.? @ -no Was critical care preformed (if so, how long)? @ -no Were there social determinants of health that impacted care today? How? (Homelessness, low income, unemployed, alcoholism, drug addiction, transportation, low edu. Level, literacy, decrease access to med. care, mcc, rehab)? @ -none Was there de-escalation of care discussed even if they declined (Discuss DNR or withdrawal of care, Hospice)? DNR status @ -no What co-morbidities impacted this encounter? (DM, HTN, Smoking, COPD, CAD, Cancer, CVA, ARF, Chemo, Hep., AIDS, mental health diagnosis, sleep apnea, morbid obesity)? @ -none Was patient admitted / discharged? Hospital course, mention meds given and route, prescriptions, significant lab abnormalities, going to OR and other pert inent info. @ -63 male to the ER for evaluation today. Patient presents today for evaluation of weakness found to have low blood pressure, no other acute findings noted here in the ER and patient feels well. Patient does not want hospital admission Undiagnosed new problem with uncertain prognosis? @ -no Drug Therapy requiring intensive monitoring for toxicity (Heparin, Nitro, Insulin, Cardizem)? @ -no Were any procedures done? @ -no Diagnosis/symptom? @ -Weakness and low blood pressure Acute, or Chronic, or Acute on Chronic? @ -Acute Uncomplicated (without systemic symptoms) or Complicated (systemic symptoms)? @ -Complicated Side effects of treatment? @ -no Exacerbation, Progression, or Severe Exacerbation? @ -exacerbation Poses a threat to life or bodily function? How? (Chest pain, USA, MD, pneumonia, PE, COPD, DKA, ARF, appy, cholecystitis, CVA, Diverticulitis, Homicidal, Wang icidal, threat to staff... and all critical care pts) @ -yes Reevaluation #5: Differential Weakness: Hypoglycemia, shock, sepsis, hyponatremia, anemia, infection, MD, ETOH, adverse medicine reaction, overdose, stroke, this is not meant to be an all-inclusive list. EKG Findings - EKG Comments: EKG Findings:: EKG is sinus 89 FL 154 QRS 93 QTc 411 - EKG Results: EKG: interpreted by FRANKY Medical Decision Making - Medical Decision Making 63 male to ER for evaluation of severe weakness with low blood pressure. P atient has no acute findings here in the ER feels well and prefers discharge - Lab Data Result diagrams: 01/23/24 13:30 01/23/24 13:30 Lab Results 01/23/24 01/23/24 01/23/24 Range/Units 13:30 13:30 13:30 WBC 11.4 H (3.8-10.6) k/uL RBC 3.40 L (4.30-5.90) m/uL Hgb 11.8 L (13.0-17.5) gm/dL Hct 36.4 L (39.0-53.0) % MCV 107.2 H (80.0-100.0) fL MCH 34.9 (25.0-35.0) pg MCHC 32.5 (31.0-37.0) g/dL RDW 15.5 (11.5-15.5) % Plt Count 520 H (150-450) k/uL MPV 8.2 Neutrophils % 82 % Lymphocytes % 9 % Monocytes % 6 % Eosinophils % 0 % Basophils % 0 % Neutrophils # 9.3 H (1.3-7.7) k/uL Lymphocytes # 1.1 (1.0-4.8) k/uL Monocytes # 0.7 (0-1.0) k/uL Eosinophils # 0.0 (0-0.7) k/uL Basophils # 0.0 (0-0.2) k/uL Macrocytosis Marked A PT 10.1 (10.0-12.5) sec INR 0.9 (<1.2) APTT 22.3 (22.0-30.0) sec Sodium 129 L (137-145) mmol/L Potassium 4.9 (3.5-5.1) mmol/L Chloride 90 L (98-107) mmol/L Carbon Dioxide 35 H (22-30) mmol/L Anion Gap 4 mmol/L BUN 21 H (9-20) mg/dL Creatinine 0.57 L (0.66-1.25) mg/dL Est GFR (CKD-EPI)AfAm >90 (>60 ml/min/1.73 sqM) Est GFR (CKD-EPI)NonAf >90 (>60 ml/min/1.73 sqM) Glucose 100 H (74-99) mg/dL Plasma Lactic Acid Cooper (0.7-2.0) mmol/L Calcium 9.2 (8.4-10.2) mg/dL Phosphorus 3.6 (2.5-4.5) mg/dL Magnesium 1.8 (1.6-2.3) mg/dL Total Bilirubin 1.0 (0.2-1.3) mg/dL AST 28 (17-59) U/L ALT 25 (4-49) U/L Alkaline Phosphatase 93 (38-126) U/L Troponin I (0.000-0.034) ng/mL NT-Pro-B Natriuret Pep 74 pg/mL Total Protein 6.4 (6.3-8.2) g/dL Albumin 3.6 (3.5-5.0) g/dL TSH 1.080 (0.465-4.680) mIU/L Urine Color Urine Appearance (Clear) Urine pH (5.0-8.0) Ur Specific [place] (1.001-1.035) Urine Protein (Negative) Urine Glucose (UA) (Negative) Urine Ketones (Negative) Urine Blood (Negative) Urine Nitrite (Negative) Urine Bilirubin (Negative) Urine Urobilinogen (<2.0) mg/dL Ur Leukocyte Esterase (Negative) 01/23/24 01/23/24 01/23/24 Range/Units 13:30 13:30 14:03 WBC (3.8-10.6) k/uL RBC (4.30-5.90) m/uL Hgb (13.0-17.5) gm/dL Hct (39.0-53.0) % MCV (80.0-100.0) fL MCH (25.0-35.0) pg MCHC (31.0-37.0) g/dL RDW (11.5-15.5) % Plt Count (150-450) k/uL MPV Neutrophils % % Lymphocytes % % Monocytes % % Eosinophils % % Basophils % % Neutrophils # (1.3-7.7) k/uL Lymphocytes # (1.0-4.8) k/uL Monocytes # (0-1.0) k/uL Eosinophils # (0-0.7) k/uL Basophils # (0-0.2) k/uL Macrocytosis PT (10.0-12.5) sec INR (<1.2) APTT (22.0-30.0) sec Sodium (137-145) mmol/L Potassium (3.5-5.1) mmol/L Chloride (98-107) mmol/L Carbon Dioxide (22-30) mmol/L Anion Gap mmol/L BUN (9-20) mg/dL Creatinine (0.66-1.25) mg/dL Est GFR (CKD-EPI)AfAm (>60 ml/min/1.73 sqM) Est GFR (CKD-EPI)NonAf (>60 ml/min/1.73 sqM) Glucose (74-99) mg/dL Plasma Lactic Acid Cooper 1.9 (0.7-2.0) mmol/L Calcium (8.4-10.2) mg/dL Phosphorus (2.5-4.5) mg/dL Magnesium (1.6-2.3) mg/dL Total Bilirubin (0.2-1.3) mg/dL AST (17-59) U/L ALT (4-49) U/L Alkaline Phosphatase (38-126) U/L Troponin I <0.012 (0.000-0.034) ng/mL NT-Pro-B Natriuret Pep pg/mL Total Protein (6.3-8.2) g/dL Albumin (3.5-5.0) g/dL TSH (0.465-4.680) mIU/L Urine Color Yellow Urine Appearance Clear (Clear) Urine pH 7.5 (5.0-8.0) Ur Specific [place] 1.014 (1.001-1.035) Urine Protein Negative (Negative) Urine Glucose (UA) Negative (Negative) Urine Ketones Negative (Negative) Urine Blood Negative (Negative) Urine Nitrite Negative (Negative) Urine Bilirubin Negative (Negative) Urine Urobilinogen 2.0 (<2.0) mg/dL Ur Leukocyte Esterase Negative (Negative) - EKG Data -: EKG Interpreted by [facility] - Radiology Data Radiology results: report reviewed (Chest x-ray is negative for acute disease), image reviewed Disposition Clinical Impression: Weakness, Dehydration, Hypotension Disposition: HOME SELF-CARE Condition: Fair Instructions (If sedation given, give patient instructions): Hypotension (ED), Weakness (ED) Is patient prescribed a controlled substance at d/c from ED?: No Referrals: Brian Arzola DO [Primary Care Provider] - 1-2 days Time of Disposition: 15:00
--- NOTE | 2024-01-23 13:10 | XR ---
EXAMINATION TYPE: XR chest 1V portable DATE OF EXAM: 01/23/2024 COMPARISON: 01/10/2024 INDICATION: Weakness TECHNIQUE: Single frontal view of the chest is obtained. FINDINGS: The heart size is normal. The pulmonary vasculature is normal. Diffuse increased lung markings are present bilaterally. This may be more focal in the left lower lob e. Correlate for atelectasis at the left base. IMPRESSION: 1. Diffuse increased lung markings are nonspecific. Correlate for pneumonia. Consider atypical pneumo cris. 2. Linear density is present more focally at the left base. Correlate for atelectasis.
[2024-01-23 13:45] LABS: Basophils % (A) 0 %; Eosinophils % (A) 0 %; HCT 36.4 % (39.0-53.0); HGB 11.8 gm/dL (13.0-17.5); Lymphocytes # (A) 1.1 k/uL (1.0-4.8); Lymphocytes % (A) 9 %; MCH 34.9 pg (25.0-35.0); MCHC 32.5 g/dL (31.0-37.0); MCV 107.2 fL (80.0-100.0); Macrocytosis Marked; Mean Platelet Volume 8.2; Monocytes # (A) 0.7 k/uL (0-1.0); Monocytes % (A) 6 %; Neutrophils # (A) 9.3 k/uL (1.3-7.7); Neutrophils % (A) 82 %; Platelet Count 520 k/uL (150-450); RDW 15.5 % (11.5-15.5); WBC 11.4 k/uL (3.8-10.6)
[2024-01-23] MEDS: SODIUM CHLORIDE 0.9% 1,000 ML IV STA (14:00)
[2024-01-23 14:03] LABS: ALT 25 U/L (4-49); AST 28 U/L (17-59); African American GFR (CKD) >90 (>60 ml/min/1.73 sqM); Albumin 3.6 g/dL (3.5-5.0); Alkaline Phosphatase 93 U/L (38-126); Anion Gap 4 mmol/L; Blood Urea Nitrogen 21 mg/dL (9-20); Calcium 9.2 mg/dL (8.4-10.2); Carbon Dioxide 35 mmol/L (22-30); Chloride 90 mmol/L (98-107); Glucose 100 mg/dL (74-99); Magnesium 1.8 mg/dL (1.6-2.3); Non-African American GFR(CKD) >90 (>60 ml/min/1.73 sqM); Phosphorus 3.6 mg/dL (2.5-4.5); Potassium 4.9 mmol/L (3.5-5.1); Sodium 129 mmol/L (137-145); Total Protein 6.4 g/dL (6.3-8.2)
[2024-01-23 14:05] LABS: INR 0.9 (<1.2); Partial Thromboplastin Time 22.3 sec (22.0-30.0); Prothrombin Time 10.1 sec (10.0-12.5)
[2024-01-23 14:12] LABS: NT-Pro-B-Type Natriuretic Pept 74 pg/mL
[2024-01-23 14:12] LABS: Appearance,Urine Clear (Clear); Bilirubin,Urine Negative (Negative); Blood,Urine Negative (Negative); Color,Urine Yellow; Glucose,Urine (UA) Negative (Negative); Ketones,Urine Negative (Negative); Leukocyte Esterase,Urine Negative (Negative); Nitrite,Urine Negative (Negative); PH, Urine 7.5 (5.0-8.0); Protein,Urine Negative (Negative); Specific Gravity,Urine 1.014 (1.001-1.035)
[2024-01-23 16:01] VITALS: PULSE 99; RESP 16; TEMP 98.7
[2024-01-23 17:19] VITALS: BP 86/52
== END 2024-01-23 15:30 | disposition home or self-care (01) ==
LOC: EC 10:40
DX: E86.0 Dehydration (principal); R53.1 Weakness; I10 Essential (primary) hypertension
CPT/HCPCS: 36415; 71045; 80053; 81003; 83605; 83735; 83880; 84100; 84443; 84484; 85025; 85610; 85730; 93005; 99285

== ENCOUNTER → 2024-01-23 | Outpatient (CLI) | payer MEDICARE ==
[2024-01-23 11:35] VITALS: BP 86/42; PULSE 85; RESP 18; TEMP 97.3
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
== END ==
LOC: PNWHC3 09:34
PROVIDERS: ATTEND Specialist
DX: M51.36 Other intervertebral disc degeneration, lumbar region (principal); G89.29 Other chronic pain; M47.816 Spondylosis without myelopathy or radiculopathy, lumbar region
CPT/HCPCS: 99211

== ENCOUNTER → 2024-04-05 | Outpatient (CLI) | payer MEDICARE ==
[2024-04-05 13:05] VITALS: BP 104/73; PULSE 97; RESP 14
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
== END ==
LOC: PNWHC3 12:21
PROVIDERS: ATTEND Specialist
DX: M51.36 Other intervertebral disc degeneration, lumbar region (principal); M47.816 Spondylosis without myelopathy or radiculopathy, lumbar region
CPT/HCPCS: 80307; 99212

== ENCOUNTER 2024-04-24 15:27 | Inpatient (IN) | payer MEDICARE ==
--- NOTE | 2024-04-24 15:40 | ED ---
General Adult HPI - General Chief complaint: Shortness of Breath Stated complaint: JANY Time Seen by Provider: 04/24/24 15:33 Source: patient, EMS Mode of arrival: EMS Limitations: no limitations - History of Present Illness Initial comments: Patient presents to the ED by ambulance for evaluation of respiratory distress/dyspnea. Patient states that he has a "feeding tube" that he is supposed to use for all of his feedings, but he states that he forgot and accidentally took a drink of water 2 days ago. Patient states that he feels that he aspirated at that time, and he states that he has been having increasing dyspnea since then. Patient states that he has a history of aspiration pneumonia, and he is concerned that he may have it again. Patient also states that he had COVID 2 weeks ago. Patient states that he has had diaphoresis at times over the past 2 days, but he denies having a measured fever. Patient denies having any pain, headache, focal neuro deficit, chest pain, hemoptysis, palpitations, dizziness, abdominal pain, nausea/vomiting/diarrhea, bloody or melanotic stool, dysuria or urinary symptoms, decreased urine output, leg or calf swelling or pain, or any other symptoms or complaints. Patient states that he is normally on 5 L of home O2. Patient has a history of pulmonary fibrosis. Patient also states that he took a dose of prednisone today, but he is uncertain of the dose. - Related Data Home Medications Medication Instructions Recorded Confirmed Citalopram Hydrobromide [CeleXA] 40 mg PEG/G-TUBE DAILY 03/25/21 04/05/24 busPIRone HCL [Buspar] 7.5 mg PEG/G-TUBE BID 10/14/23 04/05/24 Medihoney 80% Gel 1 applic TOPICAL DAILY 12/17/23 04/05/24 Acetaminophen Oral Susp [Tylenol] 640 mg PEG/G-TUBE Q4-6H PRN 01/01/24 04/05/24 Folic Acid 1 mg PEG/G-TUBE DAILY 01/01/24 04/05/24 Losartan [Cozaar] 50 mg PEG/G-TUBE DAILY 01/01/24 04/05/24 Melatonin 1.5 mg PEG/G-TUBE HS 01/01/24 04/05/24 Metoprolol Tartrate [Lopressor] 12.5 mg PEG/G-TUBE BID 01/01/24 04/05/24 Nintedanib Esylate [Ofev] 150 mg PO DIRECTED 01/01/24 04/05/24 guaiFENesin [guaiFENesin Oral 400 mg PEG/G-TUBE BID 01/01/24 04/05/24 Solution] Magic 5 ml PO QID PRN 01/23/24 04/05/24 Mouthwash(Nystatin/Lidocaine/Benadryl/Maalox) predniSONE See Taper PEG/G-TUBE DAILY 01/23/24 04/05/24 Previous Rx's Medication Instructions Recorded ALPRAZolam [Xanax] 0.5 mg PEG/G-TUBE TID #90 tab 01/12/24 Clotrimazole Sydnee [Mycelex 10 mg MUCOUS MEM QID 7 Days #28 01/12/24 Sydnee] sydnee Simethicone 40 mg/0.6 ml Drops 40 mg PEG/G-TUBE QID #30 ml 01/12/24 [Mylicon Drops] MORPHINE ORAL KIAN CONC 20mg/mL 20 mg PEG/G-TUBE Q6H PRN #120 ml 04/05/24 [Roxanol Oral Soln Conc 20MG/ML] MORPHINE ORAL KIAN CONC 20mg/mL 20 mg PEG/G-TUBE Q6H PRN #120 ml 04/05/24 [Roxanol Oral Soln Conc 20MG/ML] MORPHINE ORAL KIAN CONC 20mg/mL 20 mg PO Q6H PRN 30 Days #120 ml 04/05/24 [Roxanol Oral Soln Conc 20MG/ML] Allergies Allergy/AdvReac Type Severity Reaction Status Date / Time No Known Allergies Allergy Verified 04/24/24 15:34 Review of Systems ROS Statement: Those systems with pertinent positive or pertinent negative responses have been documented in the HPI. ROS Other: All systems not noted in ROS Statement are negative. Past Medical History Past Medical History: Musculoskeletal Disorder Additional Past Medical History / Comment(s): ETOH abuse, DTs, chronic low back pain/herniated discs/scoliosis/spinal stenosis, right shoulder, pulmonary fibrosis, Home O2 3L, cystic fibrosis History of Any Multi-Drug Resistant Organisms: None Reported Past Surgical History: Orthopedic Surgery Additional Past Surgical History / Comment(s): R ankle fx with surgical repair- pin in and out, back injections at [facility]. Left knee Past Anesthesia/Blood Transfusion Reactions: No Reported Reaction Additional Past Anesthesia/Blood Transfusion Reaction / Comment(s): Pt has never received blood. Past Psychological History: Anxiety, Depression Smoking Status: Current some day smoker, Never smoker Past Drug Use History: None Reported - Past Family History Father Family Medical History: Dementia Additional Family Medical History / Comment(s): Father is . Mother Family Medical History: Cancer Additional Family Medical History / Comment(s): Mother at age 64yrs of pancreatic cancer. General Exam Limitations: no limitations General appearance: alert Eye exam: Present: normal appearance ENT exam: Present: mucous membranes moist Neck exam: Present: other (trachea is in midline) Respiratory exam: Present: respiratory distress, other (Bilateral rhonchi (right greater than left)). Absent: wheezes, stridor Cardiovascular Exam: Present: regular rate, normal rhythm, normal heart sounds, other (Normal radial pulses bilaterally) GI/Abdominal exam: Present: soft, other (+ PEG tube). Absent: distended, tenderness, guarding Extremities exam: Present: other (Negative Homans' sign bilaterally). Absent: tenderness, pedal edema, calf tenderness Neurological exam: Present: alert, oriented X3 Psychiatric exam: Present: normal affect Skin exam: Present: warm, dry, normal color Course Vital Signs 04/24/24 04/24/24 15:29 16:30 Temperature 97.1 F L Pulse Rate 111 H 112 H Respiratory 24 24 Rate Blood Pressure 115/87 116/87 O2 Sat by Pulse 100 97 Oximetry - Reevaluation(s) Reevaluation #1: 04/24/24 17:09 Case, H&P, test results and ED management thus far were discussed with Dr. Braun. He accepts hospital admission. He agrees with pulmonology consultation. He has no further recommendations at this time. 04/24/24 17:15 Patient remains alert and responsive. Patient is aware of his test results, and he agrees with hospital admission at this time. Patient denies development of any new symptoms while in the ED. EKG Findings - EKG Comments: EKG Findings:: ED physician interpretation (interpreted by me): Sinus tachycardia, ventricular rate 102 bpm, no ectopy, normal axis, normal MO and QRS intervals, normal QT interval, no ST or T wave abnormality Medical Decision Making - Medical Decision Making Was pt. sent in by a medical professional or institution (ANAYA Javed, QUALITY CONTROLLER, urgent care, hospital, or long-term...) When possible be specific @ -No Did you speak to anyone other than the patient for history (EMS, parent, family, police, friend...)? What history was obtained from this source @ -No Did you review nursing and triage notes (agree or disagree)? Why? @ -I reviewed and agree with nursing and triage notes Were old charts reviewed (outside hosp., previous admission, EMS record, old EKG, old radiological studies, urgent care reports/EKG's, long-term records)? Report findings @ -No old charts were reviewed Differential Diagnosis (chest pain, altered mental status, abdominal pain women, abdominal pain men, vaginal bleeding, weakness, fever, dyspnea, syncope, headach e, dizziness, GI bleed, back pain, seizure, CVA, palpatations, mental health, musculoskeletal)? @ -Differential Dyspnea: Coronary syndrome, arrhythmia, tamponade, asthma, COPD, asthma, viral infection, bronchitis, COVID, pulmonary fibrosis, aspiration, pulmonary embolism, pneumonia, pneumothorax, pleural effusion, anaphylaxis, anemia, neuromuscular, this is not meant to be an all-inclusive list. EKG interpreted by me (3pts min.). @ -As above X-rays interpreted by me (1pt min.). @ -Chest x-ray was reviewed myself and shows diffuse interstitial and patchy infiltrates. I agree with the radiologist's interpretation as above. CT interpreted by me (1pt min.). @ -None done U/S interpreted by me (1pt. min.). @ -None done What testing was considered but not performed or refused? (CT, X-rays, U/S, labs)? Why? @ -None What meds were considered but not given or refused? Why? @ -None Did you discuss the management of the patient with other professionals (professionals i.e. ANAYA Javed, QUALITY CONTROLLER, lab, RT, psych nurse, public health social worker, mailing manager, teacher, reserve officer, rehabilitation caseworker)? Give summary @ -As above. Was smoking cessation discussed for >3mins.? @ -No Was critical care preformed (if so, how long)? @ -Yes, 40 minutes. Were there social determinants of health that impacted care today? How? (Homelessness, low income, unemployed, alcoholism, drug addiction, transportation, low edu. Level, literacy, decrease access to med. care, skilled nursing, rehab)? @ -No Was there de-escalation of care discussed even if they declined (Discuss DNR or withdrawal of care, Hospice)? DNR status @ -No What co-morbidities impacted this encounter? (DM, HTN, Smoking, COPD, CAD, Cancer, CVA, ARF, Chemo, Hep., AIDS, mental health diagnosis, sleep apnea, morbid obesity)? @ -Pulmonary fibrosis Was patient admitted / discharged? Hospital course, mention meds given and route, prescriptions, significant lab abnormalities, going to OR and other pertinent info. @ -Patient reports improvement in his dyspnea since coming to the ED. Patient's oxygen saturations have improved on nonrebreather mask. Patient has refused albuterol treatment, stating that it makes him "jittery". Patient reports taking prednisone earlier today. Patient is afebrile, without leukocytosis and with a normal lactic acid level. I do not feel that antibiotics are indicated at this time, and Dr. Braun agrees. Patient is also COVID positive. Will admit the patient to the hospital for further evaluation/management and pulmonology evaluation. Dr. Braun has accepted hospital admission. Patient agrees with this plan. Undiagnosed new problem with uncertain prognosis? @ -No Drug Therapy requiring intensive monitoring for toxicity (Heparin, Nitro, Insulin, Cardizem)? @ -No Were any procedures done? @ -No Diagnosis/symptom? @ -Hypoxia, respiratory distress, pulmonary fibrosis, COVID Acute, or Chronic, or Acute on Chronic? @ -Default Uncomplicated (without systemic symptoms) or Complicated (systemic symptoms)? @ -Default Side effects of treatment? @ -No Exacerbation, Progression, or Severe Exacerbation? @ -No Poses a threat to life or bodily function? How? (Chest pain, USA, PR, pneumonia, PE, COPD, DKA, ARF, appy, cholecystitis, CVA, Diverticulitis, Homicidal, Suicidal, threat to staff... and all critical care pts) @ -Yes, potentially. - Lab Data Result diagrams: 04/24/24 15:57 04/24/24 15:57 Lab Results 04/24/24 04/24/24 04/24/24 Range/Units 15:57 15:57 15:57 WBC 9.4 (3.8-10.6) k/uL RBC 4.26 L (4.30-5.90) m/uL Hgb 13.3 (13.0-17.5) gm/dL Hct 42.4 (39.0-53.0) % MCV 99.5 (80.0-100.0) fL MCH 31.2 (25.0-35.0) pg MCHC 31.4 (31.0-37.0) g/dL RDW 12.8 (11.5-15.5) % Plt Count 364 (150-450) k/uL MPV 9.1 Neutrophils % 89 % Lymphocytes % 6 % Monocytes % 4 % Eosinophils % 0 % Basophils % 0 % Neutrophils # 8.4 H (1.3-7.7) k/uL Lymphocytes # 0.6 L (1.0-4.8) k/uL Monocytes # 0.3 (0-1.0) k/uL Eosinophils # 0.0 (0-0.7) k/uL Basophils # 0.0 (0-0.2) k/uL Hypochromasia Moderate PT 10.3 (10.0-12.5) sec INR 0.9 (<1.2) APTT 27.0 (22.0-30.0) sec D-Dimer 0.48 (<0.60) mg/L FEU Sodium 137 (137-145) mmol/L Potassium 4.5 (3.5-5.1) mmol/L Chloride 88 L (98-107) mmol/L Carbon Dioxide 37 H (22-30) mmol/L Anion Gap 12 mmol/L BUN 26 H (9-20) mg/dL Creatinine 0.51 L (0.66-1.25) mg/dL Est GFR (CKD-EPI)AfAm >90 (>60 ml/min/1.73 sqM) Est GFR (CKD-EPI)NonAf >90 (>60 ml/min/1.73 sqM) Glucose 105 H (74-99) mg/dL Plasma Lactic Acid Cooper (0.7-2.0) mmol/L Calcium 9.9 (8.4-10.2) mg/dL Magnesium 1.9 (1.6-2.3) mg/dL Total Bilirubin 0.5 (0.2-1.3) mg/dL AST 30 (17-59) U/L ALT 21 (4-49) U/L Alkaline Phosphatase 80 (38-126) U/L Troponin I (0.000-0.034) ng/mL NT-Pro-B Natriuret Pep 1340 pg/mL Total Protein 8.0 (6.3-8.2) g/dL Albumin 4.5 (3.5-5.0) g/dL Influenza Type A (PCR) (Not Detectd) Influenza Type B (PCR) (Not Detectd) RSV (PCR) (Not Detectd) SARS-CoV-2 (PCR) (Not Detectd) 04/24/24 04/24/24 04/24/24 Range/Units 15:57 15:57 15:57 WBC (3.8-10.6) k/uL RBC (4.30-5.90) m/uL Hgb (13.0-17.5) gm/dL Hct (39.0-53.0) % MCV (80.0-100.0) fL MCH (25.0-35.0) pg MCHC (31.0-37.0) g/dL RDW (11.5-15.5) % Plt Count (150-450) k/uL MPV Neutrophils % % Lymphocytes % % Monocytes % % Eosinophils % % Basophils % % Neutrophils # (1.3-7.7) k/uL Lymphocytes # (1.0-4.8) k/uL Monocytes # (0-1.0) k/uL Eosinophils # (0-0.7) k/uL Basophils # (0-0.2) k/uL Hypochromasia PT (10.0-12.5) sec INR (<1.2) APTT (22.0-30.0) sec D-Dimer (<0.60) mg/L FEU Sodium (137-145) mmol/L Potassium (3.5-5.1) mmol/L Chloride (98-107) mmol/L Carbon Dioxide (22-30) mmol/L Anion Gap mmol/L BUN (9-20) mg/dL Creatinine (0.66-1.25) mg/dL Est GFR (CKD-EPI)AfAm (>60 ml/min/1.73 sqM) Est GFR (CKD-EPI)NonAf (>60 ml/min/1.73 sqM) Glucose (74-99) mg/dL Plasma Lactic Acid Cooper 1.2 (0.7-2.0) mmol/L Calcium (8.4-10.2) mg/dL Magnesium (1.6-2.3) mg/dL Total Bilirubin (0.2-1.3) mg/dL AST (17-59) U/L ALT (4-49) U/L Alkaline Phosphatase (38-126) U/L Troponin I <0.012 (0.000-0.034) ng/mL NT-Pro-B Natriuret Pep pg/mL Total Protein (6.3-8.2) g/dL Albumin (3.5-5.0) g/dL Influenza Type A (PCR) Not Detected (Not Detectd) Influenza Type B (PCR) Not Detected (Not Detectd) RSV (PCR) Not Detected (Not Detectd) SARS-CoV-2 (PCR) Detected A (Not Detectd) - Radiology Data Chest x-ray: Diffuse interstitial and patchy opacities. Consider pulmonary edema. Critical Care Time Critical Care Time: Yes Total Critical Care Time: 40 Disposition Clinical Impression: Respiratory distress, Hypoxia, Dyspnea, COVID Disposition: ADMITTED IP TO THIS HOSP Condition: Stable Is patient prescribed a controlled substance at d/c from ED?: No Referrals: Brian Arzola DO [Primary Care Provider] - 1-2 days Time of Disposition: 17:10
[2024-04-24 16:11] LABS: Basophils % (A) 0 %; Eosinophils % (A) 0 %; HCT 42.4 % (39.0-53.0); HGB 13.3 gm/dL (13.0-17.5); Hypochromasia Moderate; Lymphocytes # (A) 0.6 k/uL (1.0-4.8); Lymphocytes % (A) 6 %; MCH 31.2 pg (25.0-35.0); MCHC 31.4 g/dL (31.0-37.0); MCV 99.5 fL (80.0-100.0); Mean Platelet Volume 9.1; Monocytes # (A) 0.3 k/uL (0-1.0); Monocytes % (A) 4 %; Neutrophils # (A) 8.4 k/uL (1.3-7.7); Neutrophils % (A) 89 %; Platelet Count 364 k/uL (150-450); RBC 4.26 m/uL (4.30-5.90); RDW 12.8 % (11.5-15.5); WBC 9.4 k/uL (3.8-10.6)
[2024-04-24 16:21] LABS: ALT 21 U/L (4-49); AST 30 U/L (17-59); African American GFR (CKD) >90 (>60 ml/min/1.73 sqM); Albumin 4.5 g/dL (3.5-5.0); Alkaline Phosphatase 80 U/L (38-126); Blood Urea Nitrogen 26 mg/dL (9-20); Calcium 9.9 mg/dL (8.4-10.2); Chloride 88 mmol/L (98-107); Glucose 105 mg/dL (74-99); Magnesium 1.9 mg/dL (1.6-2.3); Non-African American GFR(CKD) >90 (>60 ml/min/1.73 sqM); Potassium 4.5 mmol/L (3.5-5.1); Sodium 137 mmol/L (137-145); Total Bilirubin 0.5 mg/dL (0.2-1.3)
[2024-04-24 16:27] LABS: Anion Gap 12 mmol/L; Carbon Dioxide 37 mmol/L (22-30)
[2024-04-24 16:29] LABS: NT-Pro-B-Type Natriuretic Pept 1340 pg/mL
--- NOTE | 2024-04-24 16:30 | XR ---
EXAMINATION TYPE: XR chest 1V portable DATE OF EXAM: 04/24/2024 Comparison: 01/23/2024 Clinical History: 63-year-old male Respiratory distress Findings: Low lung volumes. Left heart margin obscured by adjacent pleural parenchymal opacity. Diffuse interst itial and patchy opacity persists with slight worsening. Prominent air-filled bowel loops in the visu alized upper abdomen is similar. Impression: Diffuse interstitial and patchy opacities. Consider pulmonary edema.
[2024-04-24 16:31] LABS: INR 0.9 (<1.2); Prothrombin Time 10.3 sec (10.0-12.5)
[2024-04-24] MEDS: IPRATROPIUM-ALBUTEROL 3 ML NEB INHALATION STA (16:55)
[2024-04-24] MEDS ORDERED: NALOXONE 0.4 MG/ML 1 ML VIAL IV PRN (17:10)
[2024-04-24] MEDS: MORPHINE SULFATE 4 MG/ML SYRINGE IVP STA (17:47)
[2024-04-24] MEDS: MORPHINE CONC SOLN 10mg/0.5mL ORAL SYRG PEG/G-TUBE SCH (18:12)
[2024-04-24] MEDS ORDERED: IPRATROPIUM-ALBUTEROL 3 ML NEB INHALATION PRN (18:24)
[2024-04-24] MEDS ORDERED: PNEUMONIA PROTOCOL UTILIZED 1 EACH MISC PO PRN (18:24)
[2024-04-24] MEDS: LORazepam 2 MG/ML INJ IV STA (18:28)
--- NOTE | 2024-04-24 18:33 | P.HPIM ---
History of Present Illness H&P Date: 04/24/24 63-year-old male with PMH of pulmonary fibrosis, chronic respiratory failure on 5 L home O2, history of cardiac arrest, history of shoulder surgery and spinal stenosis, history of EtOH abuse, chronic dysphagia with PEG and strict NPO presents to the ED for shortness of breath. at bedside providing history. Patient recently diagnosed with COVID 19 2 weeks ago. Initially, his symptoms of cough and SOB improved but over the past 2 days he has had worsening shortness of breath and productive cough of green and blood tinged sputum. He reports anxiety. He follows pain clinic at [facility] for his Morphine. reports poor appetite via his PEG. She reports he takes small sips of water to take his Ofev and sometimes coughs due to that. In the ED he underwent extensive evaluation. BP 115/87, HR 111, T 97.1F, RR 24, 100% on 10L non rebreather. CBC, Coag panel, CMP significant for RBC 4.25, Cl 88, bicarb 37, BUN 26, Cr 0.51, glu 105. Lactic acid 1.2. Mag 1.9. Troponin < 0.012. BNP 1340. COVID +. EKG sinus tachycardia. CXR diffuse infiltrates. Patient is admitted for COVID PNA and Pulmonary consult. General: non toxic, no distress, appears at stated age, cachectic Derm: warm, dry Head: atraumatic, normocephalic, symmetric Eyes: EOMI, no lid lag, anicteric sclera Mouth: no lip lesion, mucus membranes moist Cardiovascular: S1S2 tachy, no murmur Lungs: Decreased bilateral, no rhonchi, no rales , no accessory muscle use Ext: no gross muscle atrophy, no edema, no contractures Neuro: no focal neuro deficits Psych: Alert, oriented, appropriate affect + PEG Based on my assessment of this patient, this patient meets a high complexity level of care. Acute on chronic hypoxic respiratory failure likely due to COVID 19 PNA in the setting of pulmonary fibrosis: Rule out superimposed bacterial PNA/Aspiration. Pro-nj ordered. Sputum and BCx ordered. Start Zosyn 3.375g IV TID. Pulmonary consult. Sepsis likely due to above. Bronchodilators: DuoNeb 0.5mg-3mg/3ml scheduled and as needed for SOB and wheezing. Pulmicort 1 mg INH BID. Perforomist 20 mcg INH BID. Steroids: Decadron 10 mg IV QD. Supplemental oxygen to maintain O2 > 92%. Hypochloremic metabolic alkalosis likely due to poor chloride intake and dehydration: Start NS at 75 cc/hr. Dietitian consult to resume TF. Prerenal azotemia: Dehydration. IV hydration as above. CODE STATUS: FULL CODE DVT Prophylaxis: Lovenox SQ GI Prophylaxis: Protonix IV Designated medical POA if patient is not able to make medical decisions for themselves: I have reviewed the following storage management consultant notes: ED note. I have reviewed the results of the following tests: As above. I have ordered the following tests: As above. I have discussed the care of this patient with the following independent historian: I have independently interpreted the following test below: CXR I have discussed the management of this patient with the following physician: ED provider. Past Medical History Past Medical History: Musculoskeletal Disorder Additional Past Medical History / Comment(s): ETOH abuse, DTs, chronic low back pain/herniated discs/scoliosis/spinal stenosis, right shoulder, pulmonary fibrosis, Home O2 3L, cystic fibrosis History of Any Multi-Drug Resistant Organisms: None Reported Past Surgical History: Orthopedic Surgery Additional Past Surgical History / Comment(s): R ankle fx with surgical repair- pin in and out, back injections at [facility]. Left knee Past Anesthesia/Blood Transfusion Reactions: No Reported Reaction Additional Past Anesthesia/Blood Transfusion Reaction / Comment(s): Pt has never received blood. Past Psychological History: Anxiety, Depression Smoking Status: Current some day smoker, Never smoker Past Drug Use History: None Reported - Past Family History Father Family Medical History: Dementia Additional Family Medical History / Comment(s): Father is . Mother Family Medical History: Cancer Additional Family Medical History / Comment(s): Mother at age 64yrs of pancreatic cancer. Medications and Allergies Home Medications Medication Instructions Recorded Confirmed Type Citalopram Hydrobromide [CeleXA] 40 mg PEG/G-TUBE DAILY 03/25/21 04/24/24 History Nintedanib Esylate [Ofev] 150 mg PO BID 01/01/24 04/24/24 History Doxepin HCl 6 mg PO DIRECTED 04/24/24 04/24/24 History Lactulose 10 gm PEG/G-TUBE Q8H PRN 04/24/24 04/24/24 History MORPHINE ORAL KIAN CONC 20mg/mL 20 mg PEG/G-TUBE Q6H 04/24/24 04/24/24 History [Roxanol Oral Soln Conc 20MG/ML] hydrOXYzine HCL [Atarax] 10 mg PEG/G-TUBE QID 04/24/24 04/24/24 History methylPREDNISolone Dose Pack See Taper PO DIRECTED 04/24/24 04/24/24 History [Medrol Dose Pack] Allergies Allergy/AdvReac Type Severity Reaction Status Date / Time No Known Allergies Allergy Verified 04/24/24 17:57 Physical Exam Vitals: Vital Signs Temp Pulse Resp BP Pulse Ox 04/24/24 17:47 108 H 18 138/85 96 04/24/24 16:30 112 H 24 116/87 97 04/24/24 15:29 97.1 F L 111 H 24 115/87 100 Intake and Output 04/24/24 04/24/24 04/24/24 06:59 14:59 22:59 Other: Weight 48.988 kg Results CBC & Chem 7: 04/24/24 15:57 04/24/24 15:57 Labs: Abnormal Lab Results - Last 24 Hours (Table) 04/24/24 04/24/24 04/24/24 Range/Units 15:57 15:57 15:57 RBC 4.26 L (4.30-5.90) m/uL Neutrophils # 8.4 H (1.3-7.7) k/uL Lymphocytes # 0.6 L (1.0-4.8) k/uL Chloride 88 L (98-107) mmol/L Carbon Dioxide 37 H (22-30) mmol/L BUN 26 H (9-20) mg/dL Creatinine 0.51 L (0.66-1.25) mg/dL Glucose 105 H (74-99) mg/dL SARS-CoV-2 (PCR) Detected A (Not Detectd)
[2024-04-24] MEDS: PIPERACILLIN-TAZOBACTAM 3.375 GM in SODIUM CHLORIDE 0.9% 100 ML IVPB SCH (19:02)
[2024-04-24] MEDS: SODIUM CHLORIDE 0.9% 1,000 ML IV SCH (19:03)
[2024-04-24] MEDS: FORMOTEROL FUMARATE 20 MCG/2 ML NEBU INHALATION SCH (19:44)
[2024-04-24] MEDS: BUDESONIDE 1 MG/2 ML NEBU INHALATION SCH (19:44)
[2024-04-24] MEDS: IPRATROPIUM-ALBUTEROL 3 ML NEB INHALATION SCH (19:44)
[2024-04-24] MEDS ORDERED: ALBUTEROL HFA INHALER INHALATION PRN (19:46)
[2024-04-24] MEDS: SYMBICORT 160-4.5 MCG INHALER INHALATION SCH (21:37)
[2024-04-24] MEDS: ALBUTEROL HFA INHALER INHALATION SCH (21:37)
--- NOTE | 2024-04-25 02:24 | P.CNPUL ---
History of Present Illness Consult date: 04/25/24 Requesting physician: Preston Yang Reason for consult: other (COVID-19; pulmonary fibrosis) Chief complaint: Shortness of breath, possible aspiration History of present illness: Patient is a 63-year-old white male with past medical history significant for pulmonary fibrosis and restrictive lung disease, previous ventilator dependent respiratory failure, alcoholism, chronic dysphagia and PEG tube. Patient does follow in the pulmonary office with Dr. Nugent. He is maintained on Ofev. He has problems with chronic dysphagia, has had a PEG tube that was placed 12/26/2023. He has been treated in the past for aspiration pneumonia. Patient presents the emergency department yesterday afternoon complaining of worsening shortness of breath over the last couple weeks. States that he is at increased oxygen requirements. He is normally maintained on 3 to 4 L nasal cannula at home, had to increase this to 5 L. Stating his SpO2 was only 74% while at home. Of note, approximately 2 weeks ago, patient was having runny nose, sore throat, congested cough, chest tightness, and headache. Cough is different from baseline dry cough, and is now minimally productive with green phlegm. Denies fevers. His had tested positive for COVID a week prior. Patient did test positive with home test for COVID 19, this was approximately 2 weeks ago. He has not had any outpatient treatment or evaluation. States he has had 1 previous vaccination for COVID, but no booster injections. Reports previous COVID infection in 2021. A couple days ago, patient states that he aspirated on some water. Receives most of his nutrition through a PEG tube, but has been taking his Ofev orally. This reportedly cannot be crushed per conductor freight. On my evaluation, patient is currently in trauma bay 2. He is on 5 L/min nasal cannula. SpO2 is reading 98% on bedside monitor. This is an improvement, as the patient was previously on a 10 L nonrebreather. He does not appear to be in any respiratory distress. He is very frail and cachectic. Chest x-ray redemonstrates chronic diffuse interstitial densities with some possible superimposed patchy basilar opacities at the bases, difficult to exclude acute process. Likely chronic bibasilar scarring. Prominent air-filled bowel loops, similar to prior images. CBC unremarkable. No leukocytosis. D-dimer was low. CMP: Sodium 137, potassium 4.5, chloride 88, serum bicarb 37, BUN 26, creatinine 0.51, glucose 105. Lactic 1.2. LFTs unremarkable. Troponin less than 0.012. NT proBNP 1340. Patient did test positive for COVID 19 again via PCR in the emergency department. Review of Systems REVIEW OF SYSTEMS: CONSTITUTIONAL: Denies any recent significant weight loss or weight gain. Denies objective fevers. Endorses generalized weakness. Could not get out of bed without assistance yesterday. EYES: Denies change in vision. EARS, NOSE, MOUTH, THROAT: See HPI CARDIOVASCULAR: Denies chest pain, palpitations or syncopal episodes. RESPIRATORY: See HPI GASTROINTESTINAL: Denies change in appetite, abdominal pain, nausea and vomiting, or diarrhea GENITOURINARY: Denies hematuria, denies infections. MUSKULOSKELETAL: Denies pain, denies swelling. INTEGUMENTARY: Denies rash, denies eczema. NEUROLOGICAL: Denies recent memory loss, no recent seizure activity. PSYCHIATRIC: Denies anxiety, denies depression. HEMATOLOGIC/LYMPHATIC: Denies anemia, denies enlarged lymph node Past Medical History Past Medical History: Musculoskeletal Disorder Additional Past Medical History / Comment(s): ETOH abuse, DTs, chronic low back pain/herniated discs/scoliosis/spinal stenosis, right shoulder, pulmonary fibrosis, Home O2 3L, cystic fibrosis History of Any Multi-Drug Resistant Organisms: None Reported Past Surgical History: Orthopedic Surgery Additional Past Surgical History / Comment(s): R ankle fx with surgical repair- pin in and out, back injections at [facility]. Left knee Past Anesthesia/Blood Transfusion Reactions: No Reported Reaction Additional Past Anesthesia/Blood Transfusion Reaction / Comment(s): Pt has never received blood. Past Psychological History: Anxiety, Depression Smoking Status: Current some day smoker, Never smoker Past Drug Use History: None Reported - Past Family History Father Family Medical History: Dementia Additional Family Medical History / Comment(s): Father is . Mother Family Medical History: Cancer Additional Family Medical History / Comment(s): Mother at age 64yrs of pancreatic cancer. Medications and Allergies Home Medications Medication Instructions Recorded Confirmed Type Citalopram Hydrobromide [CeleXA] 40 mg PEG/G-TUBE DAILY 03/25/21 04/24/24 History Nintedanib Esylate [Ofev] 150 mg PO BID 01/01/24 04/24/24 History Doxepin HCl 6 mg PO DIRECTED 04/24/24 04/24/24 History Lactulose 10 gm PEG/G-TUBE Q8H PRN 04/24/24 04/24/24 History MORPHINE ORAL KIAN CONC 20mg/mL 20 mg PEG/G-TUBE Q6H 04/24/24 04/24/24 History [Roxanol Oral Soln Conc 20MG/ML] hydrOXYzine HCL [Atarax] 10 mg PEG/G-TUBE QID 04/24/24 04/24/24 History methylPREDNISolone Dose Pack See Taper PO DIRECTED 04/24/24 04/24/24 History [Medrol Dose Pack] Allergies Allergy/AdvReac Type Severity Reaction Status Date / Time No Known Allergies Allergy Verified 04/24/24 17:57 Physical Exam Vitals: Vital Signs Temp Pulse Resp BP Pulse Ox 04/24/24 17:47 108 H 18 138/85 96 04/24/24 16:30 112 H 24 116/87 97 04/24/24 15:29 97.1 F L 111 H 24 115/87 100 Intake and Output 04/24/24 04/24/24 04/25/24 14:59 22:59 06:59 Other: Weight 48.988 kg GENERAL EXAM: Alert, 63-year-old male, frail in appearance, fairly comfortable in no apparent distress. HEAD: Normocephalic and atraumatic EYES: Normal reaction of pupils, equal size. NOSE: Clear with pink turbinates. THROAT: No erythema or exudates. NECK: No masses, no JVD. CHEST: No chest wall deformity. LUNGS: Equal air entry with Velcro crackles appreciated at the right base. On 5 L/min nasal cannula. No conversational dyspnea or accessory muscle use while at rest CVS: S1 and S2 normal with no audible murmur, regular rhythm. No extra heart sounds ABDOMEN: No hepatosplenomegaly, active bowel sounds, no guarding or rigidity. PEG tube insertion site clean and dry. SPINE: No scoliosis or deformity SKIN: No rashes CENTRAL NERVOUS SYSTEM: No focal deficits, tone is normal in all 4 extremities. EXTREMITIES: There is no peripheral edema or cyanosis. Digital clubbing noted. Peripheral pulses are intact. Results - Laboratory Findings CBC and BMP: 04/24/24 15:57 04/24/24 15:57 PT/INR, D-dimer PT 10.3 sec (10.0-12.5) 04/24/24 15:57 INR 0.9 (<1.2) 04/24/24 15:57 D-Dimer 0.48 mg/L FEU (<0.60) 04/24/24 15:57 Abnormal lab findings: Abnormal Labs 04/24/24 04/24/24 04/24/24 15:57 15:57 15:57 RBC 4.26 L Neutrophils # 8.4 H Lymphocytes # 0.6 L Chloride 88 L Carbon Dioxide 37 H BUN 26 H Creatinine 0.51 L Glucose 105 H SARS-CoV-2 (PCR) Detected A - Diagnostic Findings Chest x-ray: image reviewed Assessment and Plan Assessment: Acute on chronic hypoxemic respiratory failure, likely multifactorial, secondary to a combination of acute COVID-19 infection, with possible COVID-19 pneumonia or aspiration pneumonitis difficult to exclude, there is underlying pulmonary fibrosis. Interstitial pulmonary fibrosis, maintained on Ofev Chronic hypoxemic respiratory failure, normally weaned and on 3 to 4 L nasal cannula History of chronic dysphagia and previous aspiration pneumonia, status post PEG tube insertion 12/26/2023 Severe protein calorie malnutrition History of alcoholism Osteoarthritis Chronic back pain Plan: Patient's medications, labs, chest x-ray reviewed Patient is being admitted to the hospital Continue supplemental oxygen and wean FiO2 as tolerated Difficult exclude component of COVID-pneumonia or aspiration pneumonia based on chest x-ray Patient is currently receiving supportive care Continue IV Decadron Patient reportedly originally tested positive for COVID approximately 2 weeks ago via home test, and test positive again in the emergency department via PCR Maintain aspiration precautions Currently empirically covered on Zosyn. Check procalcitonin level Appropriate cultures are pending, including blood cultures and sputum cultures We will continue to follow, and further recommendations are forthcoming. I have personally seen and examined the patient, performed the documentation and the assessment and plan as written. Number of minutes spent on the visit:20 Time with Patient: Greater than 30
[2024-04-25] MEDS: ALPRAZolam 0.25 MG TAB PO PRN (02:25)
[2024-04-25] MEDS: DEXAMETHASONE SOD PHOSPHATE 10 MG/ML 1 ML VIAL IVP SCH (09:33)
[2024-04-25] MEDS: ENOXAPARIN 40 MG/0.4 ML SYRINGE SQ SCH (09:35)
[2024-04-25] MEDS: PANTOPRAZOLE 40 MG/10 ML VIAL IVP SCH (09:36)
[2024-04-25] MEDS: CITALOPRAM HYDROBROMIDE 20 MG TAB PEG/G-TUBE SCH (09:44)
[2024-04-25 10:33] LABS: Basophils # (A) 0.07 X 10*3/uL (0.00-0.10); Basophils % (A) 0.5 %; Eosinophils # (A) 0.08 X 10*3/uL (0.04-0.35); Eosinophils % (A) 0.6 %; HCT 35.2 % (39.6-50.0); Lymphocytes # (A) 1.17 X 10*3/uL (0.90-5.00); Lymphocytes % (A) 8.4 %; MCH 31.5 pg (27.0-32.0); MCHC 31.3 g/dL (32.0-37.0); MCV 100.9 FL (80.0-97.0); Monocytes # (A) 1.47 X 10*3/uL (0.20-1.00); Monocytes % (A) 10.6 %; NRBC Per 100 WBC 0 X 10*3/uL (0.00-0.01); Neutrophils # (A) 11.07 X 10*3/uL (1.80-7.70); Neutrophils % (A) 79.5 %; Platelet Count 297 X 10*3/uL (140-440); RBC 3.49 X 10*6/uL (4.40-5.60); RDW 12.7 % (11.5-14.5); WBC 13.91 X 10*3/uL (4.50-10.00)
[2024-04-25 10:53] LABS: ALT 19 U/L (10-49); AST 24 U/L (14-35); Albumin 4.1 g/dL (3.8-4.9); Albumin/Globulin Ratio 1.41 Ratio (1.60-3.17); Alkaline Phosphatase 69 U/L (41-126); Blood Urea Nitrogen 20.4 mg/dL (9.0-27.0); Calcium 9.7 mg/dL (8.7-10.3); Carbon Dioxide 35.7 mmol/L (21.6-31.8); Chloride 94 mmol/L (96-109); Globulin 2.9 g/dL (1.6-3.3); Glucose 91 mg/dL (70-110); Potassium 4.8 mmol/L (3.5-5.5); Sodium 142 mmol/L (135-145); Total Bilirubin 0.3 mg/dL (0.3-1.2)
--- NOTE | 2024-04-25 11:34 | P.PN ---
Subjective Progress Note Date: 04/25/24 63-year-old male with PMH of pulmonary fibrosis, chronic respiratory failure on 5 L home O2, history of cardiac arrest, history of shoulder surgery and spinal stenosis, history of EtOH abuse, chronic dysphagia with PEG and strict NPO presents to the ED for shortness of breath. at bedside providing history. Patient recently diagnosed with COVID 19 2 weeks ago. Initially, his symptoms of cough and SOB improved but over the past 2 days he has had worsening shortness of breath and productive cough of green and blood tinged sputum. He reports anxiety. He follows pain clinic at [facility] for his Morphine. reports poor appetite via his PEG. She reports he takes small sips of water to take his Ofev and sometimes coughs due to that. In the ED he underwent extensive evaluation. BP 115/87, HR 111, T 97.1F, RR 24, 100% on 10L non rebreather. CBC, Coag panel, CMP significant for RBC 4.25, Cl 88, bicarb 37, BUN 26, Cr 0.51, glu 105. Lactic acid 1.2. Mag 1.9. Troponin < 0.012. BNP 1340. COVID +. EKG sinus tachycardia. CXR diffuse infiltrates. Patient is admitted for COVID PNA and Pulmonary consul t. Started on Zosyn for concerns of aspiration PNA along with bronchodilators and Decadron. Started on Xanax PRN for anxiety. 04/25 Patient was seen and examined. He reports continued shortness of breath and anxiety. Complains of feeling thirsty. Currently on 5L NC. He is tachycardic in the low 100s. CBC and CMP significant for WBC 13.91, RBC 3.49, Hg 11, Hct 35.2, MCV 100.9, Cl 94, bicarb 35.7, AG 12.3, BUN/Cr 34. Pro-nj is 0.09. General: non toxic, anxious, appears at stated age, cachectic Derm: warm, dry Head: atraumatic, normocephalic, symmetric Eyes: EOMI, no lid lag, anicteric sclera Mouth: no lip lesion, mucus membranes moist Cardiovascular: S1S2 tachy, no murmur Lungs: Decreased bilateral, no rhonchi, no rales , no accessory muscle use Ext: no gross muscle atrophy, no edema, no contractures Neuro: no focal neuro deficits Psych: Alert, oriented, appropriate affect + PEG Based on my assessment of this patient, this patient meets a high complexity level of care. Acute on chronic hypoxic respiratory failure likely due to COVID 19 PNA in the setting of pulmonary fibrosis: Rule out superimposed bacterial PNA/Aspiration. Pro-nj negative. Sputum and BCx pending. Aspiration precautions. Zosyn 3.375g IV TID (D2). Pulmonary consult. Sepsis likely due to above. Bronchodilators: DuoNeb 0.5mg-3mg/3ml scheduled and as needed for SOB and wheezing. Pulmicort 1 mg INH BID. Perforomist 20 mcg INH BID. Steroids: Decadron 10 mg IV QD. Supplemental oxygen to maintain O2 > 92%. Hypochloremic metabolic alkalosis likely due to poor chloride intake and dehydration: Improving. Continue NS at 75 cc/hr. Dietitian consult to resume TF. Prerenal azotemia: Dehydration. IV hydration as above. Severe protein calorie malnutrition and FTT: PT and OT consult. Dietitian consulted. Fall precautions. CODE STATUS: FULL CODE DVT Prophylaxis: Lovenox SQ GI Prophylaxis: Protonix IV Designated medical POA if patient is not able to make medical decisions for themselves: I have reviewed the following call center consultant notes: Pulmonary note. I have reviewed the results of the following tests: CBC, CMP, Procal I have ordered the following tests: I have discussed the care of this patient with the following independent historian: I have independently interpreted the following test below: I have discussed the management of this patient with the following physician: Objective - Vital Signs Vital signs: Vital Signs Temp 97.1 F L 04/24/24 15:29 Pulse 105 H 04/25/24 11:00 Resp 20 04/25/24 11:00 BP 126/91 04/25/24 11:00 Pulse Ox 94 L 04/25/24 11:00 FiO2 Intake & Output 04/24/24 04/25/24 04/25/24 18:59 06:59 18:59 Weight 48.988 kg 48.988 kg - Labs CBC & Chem 7: 04/25/24 07:22 04/25/24 07:22 Labs: Abnormal Lab Results - Last 24 Hours (Table) 04/24/24 04/24/24 04/24/24 Range/Units 15:57 15:57 15:57 WBC (4.50-10.00) X 10*3/uL RBC 4.26 L (4.30-5.90) m/uL Hgb (13.0-17.0) g/dL Hct (39.6-50.0) % MCV (80.0-97.0) FL MCHC (32.0-37.0) g/dL Immature Gran # (0.00-0.04) X 10*3/uL Neutrophils # 8.4 H (1.3-7.7) k/uL Lymphocytes # 0.6 L (1.0-4.8) k/uL Monocytes # (0.20-1.00) X 10*3/uL Chloride 88 L (98-107) mmol/L Carbon Dioxide 37 H (22-30) mmol/L Anion Gap (4.00-12.00) mmol/L BUN 26 H (9-20) mg/dL Creatinine 0.51 L (0.66-1.25) mg/dL BUN/Creatinine Ratio (12.00-20.00) Ratio Glucose 105 H (74-99) mg/dL Albumin/Globulin Ratio (1.60-3.17) Ratio SARS-CoV-2 (PCR) Detected A (Not Detectd) 04/25/24 04/25/24 Range/Units 07:22 07:22 WBC 13.91 H (4.50-10.00) X 10*3/uL RBC 3.49 L (4.30-5.90) m/uL Hgb 11.0 L (13.0-17.0) g/dL Hct 35.2 L (39.6-50.0) % MCV 100.9 H (80.0-97.0) FL MCHC 31.3 L (32.0-37.0) g/dL Immature Gran # 0.05 H (0.00-0.04) X 10*3/uL Neutrophils # 11.07 H (1.3-7.7) k/uL Lymphocytes # (1.0-4.8) k/uL Monocytes # 1.47 H (0.20-1.00) X 10*3/uL Chloride 94 L (98-107) mmol/L Carbon Dioxide 35.7 H (22-30) mmol/L Anion Gap 12.30 H (4.00-12.00) mmol/L BUN (9-20) mg/dL Creatinine (0.66-1.25) mg/dL BUN/Creatinine Ratio 34.00 H (12.00-20.00) Ratio Glucose (74-99) mg/dL Albumin/Globulin Ratio 1.41 L (1.60-3.17) Ratio SARS-CoV-2 (PCR) (Not Detectd)
[2024-04-25] MEDS: MELATONIN 5 MG TABLET PO PRN (23:52)
--- NOTE | 2024-04-26 13:34 | P.PN ---
Subjective Progress Note Date: 04/26/24 Hospital course: Patient is a 63-year-old male with a past medical history of pulmonary fibrosis with chronic hypoxic respiratory failure on 5 L continuous home O2, history of cardiac arrest, history of shoulder surgery and spinal stenosis, chronic dysphagia with PEG tube and strict n.p.o., and previous history of alcohol abuse. He presented to the hospital on 04/24/2024 with increasing shortness of breathand productive cough. Vital signs upon arrival showed blood pressure 115/87, heart rate 111, respiratory rate 24, temp 97.1 F, and SpO2 of 100% on 10 L. EKG completed showing sinus tachycardia at 102 bpm with no significant T wave or ST abnormalities showing no signs of acute ischemia upon personal review and interpretation. Chest x-ray completed showing diffuse interstitial and patchy opacities. Labs were completed and reviewed. CBC was unremarkable. Coagulation profile normal findings. D-dimer was normal at 0.48. BMP showing high anion gap metabolic alkalosis with chloride of 88, bicarb of 37, and anion gap of 12 along with prerenal azotemia with BUN of 26.. Liver profile was unremarkable. Lactic acid was 1.2. Magnesium 1.9. Influenza A, influenza B, and RSV were negative. COVID PCR was positive. Patient was admitted under our services with consultation to pulmonology. Physical exam: Vital signs reviewed and stable. General: Nontoxic and appears stated age. Thin and frail build Derm: Skin warm and dry, normal coloration for ethnicity. Head: Atraumatic, normocephalic and symmetric. Eyes: EOMs intact, no lid lag, and anicteric sclera Mouth: no lip lesions, mucus membranes moist Cardiovascular: Tachycardic rate with regular rhythm with normal S1S2, systolic murmur, positive posterior tibial pulses bilaterally, and cap refill < 2 seconds. Lungs: Respirations even, regular, and unlabored on supplemental oxygen, Lungs slightly diminished otherwise no rhonchi, no rales, no wheezing, and no accessory muscle usage. Abdominal: soft, nontender to palpation, no guarding, no appreciable organomegaly. Ext: ROM intact. No Tube in place. gross muscle atrophy, no edema, no contractures Neuro: Speech clear, face symmetrical and CN II-XII grossly intact with no noted focal neuro deficits Psych: Alert and oriented to person, place, time, and situation. Appropriate and pleasant affect. Assessment and Plan of Care: Acute on chronic respiratory failure with hypoxia secondary to below COVID-19 infection Aspiration pneumonia, unable to rule out Hypochloremic metabolic alkalosis Prerenal azotemia Pulmonary fibrosis chronic hypoxic respiratory failure -Oxygenation to be administered and titrated as needed to maintain SPO2 equal to or greater than 90% -Telemetry monitoring. -Encourage Incentive Spirometry 10-15x hourly while awake -Ventolin inhaler 4 times daily and as needed for wheezing/shortness of breath. -Steroids: Decadron 10 mg daily -Continue antibiotics with Zosyn 3.375 g every 8 hours -Pulmonology following, reviewed documentation in chart. -DVT prophylaxis with Lovenox. -Strict Droplet plus Contact precautions Recurrent aspirations and chronic dysphagia with PEG tube dependence Severe protein calorie malnutrition -Aspiration precautions -Speech and language pathologist consulted for evaluation as patient reports able to take ice chips and popsicles at home -Patient is only able to tolerate 3 to 4 cans of tube feeding per day due to nausea and feeling overly full. Patient also has had significant weight loss and is not tolerating bolus feedings. -Consult placed to dietitian for evaluation. Data and imaging reviewed: Reviewed. CBC showing mild leukocytosis with WBC count of 13.91 and macrocytic anemia with hemoglobin of 11.0 and MCV of 100.9. BMP showing slight improvement of metabolic alkalosis with chloride of 94, bicarb 35.7, and anion gap of 12.30. Vital signs reviewed. Blood pressure 140/89, heart rate 110, respiratory rate 17, temp 97.7 F, and SpO2 of 96% on 5 L. CODE STATUS: Full code DVT prophylaxis: Lovenox Anticipated discharge date: Pending clinical course Anticipated discharge place: Pending clinical course Patient was seen independently by Nurse Pracitioner. This document was prepared using [employer] dictation software. Please allow for errors in vertical roll operator, while rare they do occur. James Osullivan NP rendered care for this patient independently, reviewed the findings and plan as documented in the note above. I did not physically speak with or examine the patient on this date Objective - Vital Signs Vital signs: Vital Signs Temp 97.7 F 04/26/24 01:21 Pulse 102 H 04/26/24 03:04 Resp 19 04/26/24 03:04 BP 161/94 04/26/24 01:21 Pulse Ox 98 04/26/24 03:36 FiO2 Intake & Output 04/25/24 04/26/24 04/26/24 18:59 06:59 18:59 Output Total 75 Balance -75 Weight 48.988 kg 39.5 kg Output: Urine 75 Other: Voiding Method Urinal # Voids 1 - Labs CBC & Chem 7: 04/25/24 07:22 04/25/24 07:22 Labs: Abnormal Lab Results - Last 24 Hours (Table) 04/25/24 04/25/24 Range/Units 07:22 07:22 WBC 13.91 H (4.50-10.00) X 10*3/uL RBC 3.49 L (4.40-5.60) X 10*6/uL Hgb 11.0 L (13.0-17.0) g/dL Hct 35.2 L (39.6-50.0) % MCV 100.9 H (80.0-97.0) FL MCHC 31.3 L (32.0-37.0) g/dL Immature Gran # 0.05 H (0.00-0.04) X 10*3/uL Neutrophils # 11.07 H (1.80-7.70) X 10*3/uL Monocytes # 1.47 H (0.20-1.00) X 10*3/uL Chloride 94 L (96-109) mmol/L Carbon Dioxide 35.7 H (21.6-31.8) mmol/L Anion Gap 12.30 H (4.00-12.00) mmol/L BUN/Creatinine Ratio 34.00 H (12.00-20.00) Ratio Albumin/Globulin Ratio 1.41 L (1.60-3.17) Ratio Microbiology - Last 24 Hours (Table) 04/24/24 16:00 Blood Culture - Preliminary Blood 04/24/24 16:15 Blood Culture - Preliminary Blood
--- NOTE | 2024-04-26 15:12 | P.PN ---
Subjective Progress Note Date: 04/26/24 Patient is a 63-year-old white male with past medical history significant for pulmonary fibrosis and restrictive lung disease, previous ventilator dependent respiratory failure, alcoholism, chronic dysphagia and PEG tube. Patient does follow in the pulmonary office with Dr. Nugent. He is maintained on Ofev. He has problems with chronic dysphagia, has had a PEG tube that was placed 12/26/2023. He has been treated in the past for aspiration pneumonia. Patient presents the emergency department yesterday afternoon complaining of worsening shortness of breath over the last couple weeks. States that he is at increased oxygen requirements. He is normally maintained on 3 to 4 L nasal cannula at h ome, had to increase this to 5 L. Stating his SpO2 was only 74% while at home. Of note, approximately 2 weeks ago, patient was having runny nose, sore throat, congested cough, chest tightness, and headache. Cough is different from baseline dry cough, and is now minimally productive with green phlegm. Denies fevers. His had tested positive for COVID a week prior. Patient did test positive with home test for COVID 19, this was approximately 2 weeks ago. He has not had any outpatient treatment or evaluation. States he has had 1 previous vaccination for COVID, but no booster injections. Reports previous COVID infection in 2021. A couple days ago, patient states that he aspirated on some water. Receives most of his nutrition through a PEG tube, but has been taking his Ofev orally. This reportedly cannot be crushed per automatic outsole cutter. On my evaluation, patient is currently in trauma bay 2. He is on 5 L/min nasal cannula. SpO2 is reading 98% on bedside monitor. This is an improvement, as the patient was previously on a 10 L nonrebreather. He does not appear to be in any respiratory distress. He is very frail and cachectic. Chest x-ray redemonstrates chronic diffuse interstitial densities with some possible superimposed patchy basilar opacities at the bases, difficult to exclude acute process. Likely chronic bibasilar scarring. Prominent air-filled bowel loops, similar to prior images. CBC unremarkable. No leukocytosis. D-dimer was low. CMP: Sodium 137, potassium 4.5, chloride 88, serum bicarb 37, BUN 26, creatinine 0.51, glucose 105. Lactic 1.2. LFTs unremarkable. Troponin less than 0.012. NT proBNP 1340. Patient did test positive for COVID 19 again via PCR in the emergency department. The patient is seen today April 26, 2024 in follow-up on the regular medical floor. He is currently resting comfortably in bed. Awake and alert in no acute distress. Feeling a bit better today compared to yesterday. He is maintaining O2 saturations in the 90s on 5 L/min per nasal cannula. He has been afebrile. Hemodynamically stable. Blood cultures pending. Calcitonin 0.09. He is continued on Symbicort, albuterol, Decadron. Antibiotics in the form of Zosyn. Lovenox for DVT prophylaxis. Normal saline at 75 MLS per hour. Objective - Vital Signs Vital signs: Vital Signs Temp 97.7 F 04/26/24 13:06 Pulse 109 H 04/26/24 13:06 Resp 17 04/26/24 13:06 BP 113/74 04/26/24 13:06 Pulse Ox 98 04/26/24 13:06 FiO2 Intake & Output 04/25/24 04/26/24 04/26/24 18:59 06:59 18:59 Output Total 75 450 Balance -75 -450 Weight 48.988 kg 39.5 kg 45.5 kg Output: Urine 75 450 Other: Voiding Method Urinal Urinal # Voids 1 - Exam GENERAL EXAM: Alert, 63-year-old male, frail in appearance, resting in bed, on 5 L nasal cannula, fairly comfortable in no apparent distress. HEAD: Normocephalic and atraumatic EYES: Normal reaction of pupils, equal size. NOSE: Clear with pink turbinates. THROAT: No erythema or exudates. NECK: No masses, no JVD. CHEST: No chest wall deformity. LUNGS: Equal air entry with Velcro crackles appreciated at the right base. No conversational dyspnea or accessory muscle use while at rest CVS: S1 and S2 normal with no audible murmur, regular rhythm. No extra heart s ounds ABDOMEN: No hepatosplenomegaly, active bowel sounds, no guarding or rigidity. PEG tube insertion site clean and dry. SPINE: No scoliosis or deformity SKIN: No rashes CENTRAL NERVOUS SYSTEM: No focal deficits, tone is normal in all 4 extremities. EXTREMITIES: There is no peripheral edema or cyanosis. Digital clubbing noted. Peripheral pulses are intact. - Labs CBC & Chem 7: 04/25/24 07:22 04/25/24 07:22 Labs: Microbiology - Last 24 Hours (Table) 04/24/24 16:00 Blood Culture - Preliminary Blood 04/24/24 16:15 Blood Culture - Preliminary Blood Assessment and Plan Assessment: Acute on chronic hypoxemic respiratory failure, likely multifactorial, secondary to a combination of acute COVID-19 infection, with possible COVID-19 pneumonia or aspiration pneumonitis difficult to exclude, there is underlying pulmonary fibrosis. Interstitial pulmonary fibrosis, maintained on Ofev Chronic hypoxemic respiratory failure, normally weaned and on 3 to 4 L nasal cannula History of chronic dysphagia and previous aspiration pneumonia, status post PEG tube insertion 12/26/2023 Severe protein calorie malnutrition History of alcoholism Osteoarthritis Chronic back pain Plan: The patient was seen and evaluated Labs and medications reviewed Procalcitonin negative Zosyn discontinued Continued on Symbicort, albuterol HFA Continued on Decadron When asked for DVT prophylaxis Titrate down the FiO2 as tolerated We will continue to follow I have personally seen and examined the patient, performed the documentation and the assessment and plan as written. Number of minutes spent on the visit: 10.
[2024-04-26] MEDS: LACTULOSE 20 GM/30 ML CUP PO ONE (17:23)
[2024-04-27 10:01] LABS: HCT 34.3 % (39.0-53.0); HGB 10.5 gm/dL (13.0-17.5); Hypochromasia Marked; MCH 31.6 pg (25.0-35.0); MCHC 30.5 g/dL (31.0-37.0); MCV 103.8 fL (80.0-100.0); Macrocytosis Slight; Mean Platelet Volume 8.7; Platelet Count 244 k/uL (150-450); RBC 3.31 m/uL (4.30-5.90); RDW 12.9 % (11.5-15.5); WBC 10.5 k/uL (3.8-10.6)
[2024-04-27 10:32] LABS: ALT 36 U/L (4-49); AST 42 U/L (17-59); African American GFR (CKD) >90 (>60 ml/min/1.73 sqM); Albumin 3.7 g/dL (3.5-5.0); Albumin/Globulin Ratio 1.2; Alkaline Phosphatase 76 U/L (38-126); Blood Urea Nitrogen 18 mg/dL (9-20); Calcium 8.9 mg/dL (8.4-10.2); Chloride 95 mmol/L (98-107); Globulin 3.1 g/dL; Glucose 138 mg/dL (74-99); Magnesium 1.8 mg/dL (1.6-2.3); Non-African American GFR(CKD) >90 (>60 ml/min/1.73 sqM); Potassium 4.2 mmol/L (3.5-5.1); Sodium 140 mmol/L (137-145); Total Bilirubin 0.4 mg/dL (0.2-1.3); Total Protein 6.8 g/dL (6.3-8.2)
[2024-04-27 10:40] LABS: Anion Gap 1 mmol/L
[2024-04-27 10:46] LABS: Carbon Dioxide 44 mmol/L (22-30)
[2024-04-27 13:08] VITALS: BMI 15.0
[2024-04-27] MEDS: bisacodyL 10 MG SUPP RECTAL STA (13:18)
--- NOTE | 2024-04-27 13:25 | P.PN ---
Subjective Progress Note Date: 04/27/24 Hospital course: Patient is a 63-year-old male with a past medical history of pulmonary fibrosis with chronic hypoxic respiratory failure on 5 L continuous home O2, history of cardiac arrest, history of shoulder surgery and spinal stenosis, chronic dysphagia with PEG tube and strict n.p.o., and previous history of alcohol abuse. He presented to the hospital on 04/24/2024 with increasing shortness of breathand productive cough. Vital signs upon arrival showed blood pressure 115/87, heart rate 111, respiratory rate 24, temp 97.1 F, and SpO2 of 100% on 10 L. EKG completed showing sinus tachycardia at 102 bpm with no significant T wave or ST abnormalities showing no signs of acute ischemia upon personal review and interpretation. Chest x-ray completed showing diffuse interstitial and patchy opacities. Labs were completed and reviewed. CBC was unremarkable. Coagulation profile normal findings. D-dimer was normal at 0.48. BMP showing high anion gap metabolic alkalosis with chloride of 88, bicarb of 37, and anion gap of 12 along with prerenal azotemia with BUN of 26.. Liver profile was unremarkable. Lactic acid was 1.2. Magnesium 1.9. Influenza A, influenza B, and RSV were negative. COVID PCR was positive. Patient was admitted under our services with consultation to pulmonology. Physical exam: Patient was seen and fully evaluated at bedside this morning. Patient had a difficult night. Per nursing, patient found yesterday evening just after 7 PM, sitting on the side of the bed without his oxygen on with an SpO2 of 60%. Patient was immediately placed on nonrebreather at 15 L with oxygen saturations increasing back up to 100% and he was slowly titrated back down. Patient currently back down to baseline 5 L with SpO2 of 97%. Patient reports he still has not had a bowel movement in 4 days despite administration of lactulose. Abdomen is soft and nontender upon palpation. Discussed with patient and we will place order for Dulcolax suppository. Vital signs reviewed and stable. General: Nontoxic and appears stated age. Thin and frail build Derm: Skin warm and dry, normal coloration for ethnicity. Head: Atraumatic, normocephalic and symmetric. Eyes: EOMs intact, no lid lag, and anicteric sclera Mouth: no lip lesions, mucus membranes moist Cardiovascular: Tachycardic rate with regular rhythm with normal S1S2, systolic murmur, positive posterior tibial pulses bilaterally, and cap refill < 2 seconds. Lungs: Respirations even, regular, and unlabored on supplemental oxygen, Lungs slightly diminished otherwise no rhonchi, no rales, no wheezing, and no accessory muscle usage. Abdominal: soft, nontender to palpation, no guarding, no appreciable organomegaly. Ext: ROM intact. No Tube in place. gross muscle atrophy, no edema, no contractures Neuro: Speech clear, face symmetrical and CN II-XII grossly intact with no noted focal neuro deficits Psych: Alert and oriented to person, place, time, and situation. Appropriate and pleasant affect. Assessment and Plan of Care: Acute on chronic respiratory failure with hypoxia and hypercarbia secondary to below COVID-19 infection Pulmonary fibrosis with chronic hypoxic respiratory failure Aspiration pneumonia, unable to rule out Hypochloremic metabolic alkalosis Prerenal azotemia -Oxygenation to be administered and titrated as needed to maintain SPO2 equal to or greater than 90% -Telemetry monitoring. -Encourage Incentive Spirometry 10-15x hourly while awake -Ventolin inhaler 4 times daily and as needed for wheezing/shortness of breath. -Steroids: Decadron 10 mg daily (Day 3 of steroids) -Patient received 2 days of IV antibiotics with Zosyn. Procalcitonin was negative at 0.09 and Zosyn was discontinued. -Pulmonology following, reviewed documentation in chart. -DVT prophylaxis with Lovenox. -Strict Droplet plus Contact precautions Recurrent aspirations and chronic dysphagia with PEG tube dependence Severe protein calorie malnutrition -Aspiration precautions with head of bed elevated at all times. -Speech and language pathologist consulted for evaluation as patient reports his swallowing has improved and that he is able to take ice chips and popsicles at home -Patient is only able to tolerate 3 to 4 cans of tube feeding per day due to nausea and feeling overly full. Patient also has had significant weight loss and is not tolerating bolus feedings. -Consult placed to dietitian for evaluation of severe protein calorie malnutrition and management of PEG tube feedings. Constipation -Patient started on MiraLAX 17 g via PEG tube daily. -Constipation remains status post administration of lactulose, abdomen is soft and nondistended and nontender to palpation. Bowel sounds present. Order placed for Dulcolax suppository x 1 dose. -Monitor for resolution. Data and imaging reviewed: Labs reviewed. CBC showing hemoglobin 10.5 and macrocytosis with MCV of 103.8. BMP showing persistent metabolic alkalosis with chloride of 95, bicarb of 44, and anion gap of 1. Magnesium 1.8. Liver profile unremarkable. Vital signs reviewed. Blood pressure 122/75, heart rate 99, respiratory rate 17, temp 97.8 F, and SpO2 of 97% on 5 L. CODE STATUS: Full code DVT prophylaxis: Lovenox Anticipated discharge date: Pending clinical course Anticipated discharge place: Pending clinical course Patient was seen independently by Nurse Pracitioner. This document was prepared using [employer] dictation software. Please allow for errors in earth moving technician, while rare they do occur. James Osullivan NP rendered care for this patient independently, reviewed the findings and plan as documented in the note above. I did not physically speak with or examine the patient on this date. Objective - Vital Signs Vital signs: Vital Signs Temp 98.1 F 04/27/24 01:04 Pulse 110 H 04/27/24 01:04 Resp 17 04/27/24 01:04 BP 137/87 04/27/24 01:04 Pulse Ox 97 04/27/24 07:30 FiO2 Intake & Output 04/26/24 04/27/24 04/27/24 18:59 06:59 18:59 Output Total 450 300 Balance -450 -300 Weight 45.5 kg 43.5 kg Output: Urine 450 300 Other: Voiding Method Urinal Urinal - Labs CBC & Chem 7: 04/27/24 09:18 04/27/24 09:18 Labs: Microbiology - Last 24 Hours (Table) 04/24/24 16:00 Blood Culture - Preliminary Blood 04/24/24 16:15 Blood Culture - Preliminary Blood
--- NOTE | 2024-04-27 14:10 | P.PN ---
Subjective Progress Note Date: 04/27/24 Patient is a 63-year-old white male with past medical history significant for pulmonary fibrosis and restrictive lung disease, previous ventilator dependent respiratory failure, alcoholism, chronic dysphagia and PEG tube. Patient does follow in the pulmonary office with Dr. Nugent. He is maintained on Ofev. He has problems with chronic dysphagia, has had a PEG tube that was placed 12/26/2023. He has been treated in the past for aspiration pneumonia. Patient presents the emergency department yesterday afternoon complaining of worsening shortness of breath over the last couple weeks. States that he is at increased oxygen requirements. He is normally maintained on 3 to 4 L nasal cannula at h ome, had to increase this to 5 L. Stating his SpO2 was only 74% while at home. Of note, approximately 2 weeks ago, patient was having runny nose, sore throat, congested cough, chest tightness, and headache. Cough is different from baseline dry cough, and is now minimally productive with green phlegm. Denies fevers. His had tested positive for COVID a week prior. Patient did test positive with home test for COVID 19, this was approximately 2 weeks ago. He has not had any outpatient treatment or evaluation. States he has had 1 previous vaccination for COVID, but no booster injections. Reports previous COVID infection in 2021. A couple days ago, patient states that he aspirated on some water. Receives most of his nutrition through a PEG tube, but has been taking his Ofev orally. This reportedly cannot be crushed per telephone solicitor. On my evaluation, patient is currently in trauma bay 2. He is on 5 L/min nasal cannula. SpO2 is reading 98% on bedside monitor. This is an improvement, as the patient was previously on a 10 L nonrebreather. He does not appear to be in any respiratory distress. He is very frail and cachectic. Chest x-ray redemonstrates chronic diffuse interstitial densities with some possible superimposed patchy basilar opacities at the bases, difficult to exclude acute process. Likely chronic bibasilar scarring. Prominent air-filled bowel loops, similar to prior images. CBC unremarkable. No leukocytosis. D-dimer was low. CMP: Sodium 137, potassium 4.5, chloride 88, serum bicarb 37, BUN 26, creatinine 0.51, glucose 105. Lactic 1.2. LFTs unremarkable. Troponin less than 0.012. NT proBNP 1340. Patient did test positive for COVID 19 again via PCR in the emergency department. The patient is seen today April 26, 2024 in follow-up on the regular medical floor. He is currently resting comfortably in bed. Awake and alert in no acute distress. Feeling a bit better today compared to yesterday. He is maintaining O2 saturations in the 90s on 5 L/min per nasal cannula. He has been afebrile. Hemodynamically stable. Blood cultures pending. Calcitonin 0.09. He is continued on Symbicort, albuterol, Decadron. Antibiotics in the form of Zosyn. Lovenox for DVT prophylaxis. Normal saline at 75 MLS per hour. The patient is seen today April 27, 2024 in follow-up on the regular medical floor. He is currently resting fairly comfortably in bed. Awake and alert in no acute distress. Maintaining O2 saturations in the 90s on 5 L/min per nasal cannula. Earlier today he was found without his oxygen on his O2 sat had dropped into the 60s. He was educated regarding the importance of continuously wearing his oxygen. He remains on Symbicort, albuterol, Decadron. Lovenox for DVT prophylaxis. White count 10.5. Hemoglobin 10.5. Platelets 244. Sodium 140. Potassium 4.2. Bicarb 44. BUN 18. Creatinine 0.40. Glucose 138. Objective - Vital Signs Vital signs: Vital Signs Temp 97.9 F 04/27/24 13:54 Pulse 109 H 04/27/24 13:54 Resp 18 04/27/24 13:54 BP 110/58 04/27/24 13:54 Pulse Ox 100 04/27/24 13:54 FiO2 Intake & Output 04/26/24 04/27/24 04/27/24 18:59 06:59 18:59 Output Total 450 300 Balance -450 -300 Weight 45.5 kg 43.5 kg 43.5 kg Output: Urine 450 300 Other: Voiding Method Urinal Urinal Urinal # Voids 2 - Exam GENERAL EXAM: Alert, 63-year-old male, frail in appearance, on 5 L nasal cannula, fairly comfortable in no apparent distress. HEAD: Normocephalic and atraumatic EYES: Normal reaction of pupils, equal size. NOSE: Clear with pink turbinates. THROAT: No erythema or exudates. NECK: No masses, no JVD. CHEST: No chest wall deformity. LUNGS: Equal air entry with Velcro crackles appreciated at the bases. CVS: S1 and S2 normal with no audible murmur, regular rhythm. No extra heart sounds ABDOMEN: No hepatosplenomegaly, active bowel sounds, no guarding or rigidity. PEG tube insertion site clean and dry. SPINE: No scoliosis or deformity SKIN: No rashes CENTRAL NERVOUS SYSTEM: No focal deficits, tone is normal in all 4 extremities. EXTREMITIES: There is no peripheral edema or cyanosis. Digital clubbing noted. Peripheral pulses are intact. - Labs CBC & Chem 7: 04/27/24 09:18 04/27/24 09:18 Labs: Abnormal Lab Results - Last 24 Hours (Table) 04/27/24 04/27/24 Range/Units 09:18 09:18 RBC 3.31 L (4.30-5.90) m/uL Hgb 10.5 L (13.0-17.5) gm/dL Hct 34.3 L (39.0-53.0) % MCV 103.8 H (80.0-100.0) fL MCHC 30.5 L (31.0-37.0) g/dL Chloride 95 L (98-107) mmol/L Carbon Dioxide 44 H* (22-30) mmol/L Creatinine 0.40 L (0.66-1.25) mg/dL Glucose 138 H (74-99) mg/dL Microbiology - Last 24 Hours (Table) 04/24/24 16:00 Blood Culture - Preliminary Blood 04/24/24 16:15 Blood Culture - Preliminary Blood Assessment and Plan Assessment: Acute on chronic hypoxemic respiratory failure, likely multifactorial, secondary to a combination of acute COVID-19 infection, with possible COVID-19 pneumonia or aspiration pneumonitis difficult to exclude, there is underlying pulmonary fibrosis. Interstitial pulmonary fibrosis, maintained on Ofev Chronic hypoxemic respiratory failure, normally weaned and on 3 to 4 L nasal cannula History of chronic dysphagia and previous aspiration pneumonia, status post PEG tube insertion 12/26/2023 Severe protein calorie malnutrition History of alcoholism Osteoarthritis Chronic back pain Plan: The patient was seen and evaluated Labs and medications reviewed Being nourished with Jevity tube feedings Continue the current treatment plan Titrate down the FiO2 as tolerated Overall prognosis is poor We will continue to follow I have personally seen and examined the patient, performed the documentation and the assessment and plan as written. Number of minutes spent on the visit: 10.
[2024-04-28 08:08] LABS: HCT 33.9 % (39.0-53.0); HGB 9.9 gm/dL (13.0-17.5); Hypochromasia Marked; MCH 31.5 pg (25.0-35.0); MCHC 29.1 g/dL (31.0-37.0); MCV 108.2 fL (80.0-100.0); Macrocytosis Moderate; Mean Platelet Volume 9.9; Platelet Count 226 k/uL (150-450); RBC 3.13 m/uL (4.30-5.90); RDW 13.1 % (11.5-15.5)
[2024-04-28 08:09] LABS: ALT 28 U/L (4-49); AST 30 U/L (17-59); African American GFR (CKD) >90 (>60 ml/min/1.73 sqM); Albumin 3.3 g/dL (3.5-5.0); Albumin/Globulin Ratio 1.2; Alkaline Phosphatase 76 U/L (38-126); Anion Gap 7 mmol/L; Blood Urea Nitrogen 22 mg/dL (9-20); Chloride 92 mmol/L (98-107); Globulin 2.7 g/dL; Glucose 154 mg/dL (74-99); Magnesium 1.9 mg/dL (1.6-2.3); Non-African American GFR(CKD) >90 (>60 ml/min/1.73 sqM); Potassium 4.3 mmol/L (3.5-5.1); Sodium 139 mmol/L (137-145); Total Bilirubin 0.3 mg/dL (0.2-1.3)
[2024-04-28 08:56] LABS: Carbon Dioxide 49 mmol/L (22-30)
[2024-04-28] MEDS: polyethylene glycoL 3350 17 GM POWD.PACK PEG/G-TUBE SCH (09:42)
--- NOTE | 2024-04-28 12:16 | P.PN ---
Subjective Progress Note Date: 04/28/24 Patient is a 63-year-old white male with past medical history significant for pulmonary fibrosis and restrictive lung disease, previous ventilator dependent respiratory failure, alcoholism, chronic dysphagia and PEG tube. Patient does follow in the pulmonary office with Dr. Nugent. He is maintained on Ofev. He has problems with chronic dysphagia, has had a PEG tube that was placed 12/26/2023. He has been treated in the past for aspiration pneumonia. Patient presents the emergency department yesterday afternoon complaining of worsening shortness of breath over the last couple weeks. States that he is at increased oxygen requirements. He is normally maintained on 3 to 4 L nasal cannula at h ome, had to increase this to 5 L. Stating his SpO2 was only 74% while at home. Of note, approximately 2 weeks ago, patient was having runny nose, sore throat, congested cough, chest tightness, and headache. Cough is different from baseline dry cough, and is now minimally productive with green phlegm. Denies fevers. His had tested positive for COVID a week prior. Patient did test positive with home test for COVID 19, this was approximately 2 weeks ago. He has not had any outpatient treatment or evaluation. States he has had 1 previous vaccination for COVID, but no booster injections. Reports previous COVID infection in 2021. A couple days ago, patient states that he aspirated on some water. Receives most of his nutrition through a PEG tube, but has been taking his Ofev orally. This reportedly cannot be crushed per ladle patcher. On my evaluation, patient is currently in trauma bay 2. He is on 5 L/min nasal cannula. SpO2 is reading 98% on bedside monitor. This is an improvement, as the patient was previously on a 10 L nonrebreather. He does not appear to be in any respiratory distress. He is very frail and cachectic. Chest x-ray redemonstrates chronic diffuse interstitial densities with some possible superimposed patchy basilar opacities at the bases, difficult to exclude acute process. Likely chronic bibasilar scarring. Prominent air-filled bowel loops, similar to prior images. CBC unremarkable. No leukocytosis. D-dimer was low. CMP: Sodium 137, potassium 4.5, chloride 88, serum bicarb 37, BUN 26, creatinine 0.51, glucose 105. Lactic 1.2. LFTs unremarkable. Troponin less than 0.012. NT proBNP 1340. Patient did test positive for COVID 19 again via PCR in the emergency department. The patient is seen today April 26, 2024 in follow-up on the regular medical floor. He is currently resting comfortably in bed. Awake and alert in no acute distress. Feeling a bit better today compared to yesterday. He is maintaining O2 saturations in the 90s on 5 L/min per nasal cannula. He has been afebrile. Hemodynamically stable. Blood cultures pending. Calcitonin 0.09. He is continued on Symbicort, albuterol, Decadron. Antibiotics in the form of Zosyn. Lovenox for DVT prophylaxis. Normal saline at 75 MLS per hour. The patient is seen today April 27, 2024 in follow-up on the regular medical floor. He is currently resting fairly comfortably in bed. Awake and alert in no acute distress. Maintaining O2 saturations in the 90s on 5 L/min per nasal cannula. Earlier today he was found without his oxygen on his O2 sat had dropped into the 60s. He was educated regarding the importance of continuously wearing his oxygen. He remains on Symbicort, albuterol, Decadron. Lovenox for DVT prophylaxis. White count 10.5. Hemoglobin 10.5. Platelets 244. Sodium 140. Potassium 4.2. Bicarb 44. BUN 18. Creatinine 0.40. Glucose 138. The patient is seen today April 28, 2024 on the regular medical floor. He is awake and alert in no acute distress. Resting fairly comfortably in bed. He is maintaining O2 saturations in the 90s on 8 L high flow nasal cannula. White count 12.0. Hemoglobin 9.9. Platelets 226. Sodium 139. Potassium 4.3. Bicarb 49. BUN 22. Creatinine 0.48. Glucose 154. He is continued on Symbicort, albuterol HFA, Decadron. Normal saline at 75 MLS per hour. Remains on [facility] for nutritional support. Objective - Vital Signs Vital signs: Vital Signs Temp 98.6 F 04/28/24 07:26 Pulse 116 H 04/28/24 07:26 Resp 18 04/28/24 07:26 BP 98/61 04/28/24 07:26 Pulse Ox 98 04/28/24 08:17 FiO2 Intake & Output 04/27/24 04/28/24 04/28/24 18:59 06:59 18:59 Output Total 400 Balance -400 Weight 43.5 kg 43 kg Output: Urine 400 Other: Voiding Method Urinal External Catheter External Catheter # Voids 2 - Exam GENERAL EXAM: Alert, pleasant 63-year-old male, frail, on 8 L nasal cannula, fairly comfortable in no apparent distress. HEAD: Normocephalic and atraumatic EYES: Normal reaction of pupils, equal size. NOSE: Clear with pink turbinates. THROAT: No erythema or exudates. NECK: No masses, no JVD. CHEST: No chest wall deformity. LUNGS: Equal air entry with Velcro crackles appreciated at the bases. CVS: S1 and S2 normal with no audible murmur, regular rhythm. No extra heart sounds ABDOMEN: No hepatosplenomegaly, active bowel sounds, no guarding or rigidity. PEG tube insertion site clean and dry. SPINE: No scoliosis or deformity SKIN: No rashes CENTRAL NERVOUS SYSTEM: No focal deficits, tone is normal in all 4 extremities. EXTREMITIES: There is no peripheral edema or cyanosis. Digital clubbing noted. Peripheral pulses are intact. - Labs CBC & Chem 7: 04/28/24 07:27 04/28/24 07:27 Labs: Abnormal Lab Results - Last 24 Hours (Table) 04/28/24 04/28/24 Range/Units 07:27 07:27 WBC 12.0 H (3.8-10.6) k/uL RBC 3.13 L (4.30-5.90) m/uL Hgb 9.9 L (13.0-17.5) gm/dL Hct 33.9 L (39.0-53.0) % MCV 108.2 H (80.0-100.0) fL MCHC 29.1 L (31.0-37.0) g/dL Chloride 92 L (98-107) mmol/L Carbon Dioxide 49 H* (22-30) mmol/L BUN 22 H (9-20) mg/dL Creatinine 0.48 L (0.66-1.25) mg/dL Glucose 154 H (74-99) mg/dL Total Protein 6.0 L (6.3-8.2) g/dL Albumin 3.3 L (3.5-5.0) g/dL Microbiology - Last 24 Hours (Table) 04/24/24 16:00 Blood Culture - Preliminary Blood 04/24/24 16:15 Blood Culture - Preliminary Blood Assessment and Plan Assessment: Acute on chronic hypoxemic respiratory failure, likely multifactorial, secondary to a combination of acute COVID-19 infection, with possible COVID-19 pneumonia or aspiration pneumonitis difficult to exclude, there is underlying pulmonary fibrosis. Interstitial pulmonary fibrosis, maintained on Ofev Chronic hypoxemic respiratory failure, normally on 5 L nasal cannula History of chronic dysphagia and previous aspiration pneumonia, status post PEG tube insertion 12/26/2023 Severe protein calorie malnutrition History of alcoholism Osteoarthritis Chronic back pain Plan: The patient was seen and evaluated Labs and medications reviewed Continue the current treatment plan Titrate down the FiO2 as tolerated Currently on 8 L high flow nasal cannula Normally wears 5 L at home Home once stable oxygenation I have personally seen and examined the patient, performed the documentation and the assessment and plan as written. Number of minutes spent on the visit: 10.
--- NOTE | 2024-04-28 14:19 | P.PN ---
Subjective Progress Note Date: 04/28/24 Patient is back to his home oxygen requirement of 5 L of nasal cannula. He is still desaturating with minimal activity. He reports feeling closer to baseline, but not quite there. Denies fevers, chills. He has tube feeds running at 55 cc/h. Patient also has reports of anxiety, controlled with Xanax, but hopes the frequency can increase. Brief goals of care conversation was had with patient and his family, they are considering switching to palliative care as an outpatient. Gen: In mild distress from dyspnea, cachectic elderly man HEENT: normocephalic, atraumatic, hearing acuity is intant, mucous membranes moist CVS: perfusing all extremities well, no pitting edema, Respiratory: Diffuse crackles, symmetric chest expansion, no accessory muscle use GI: soft, NTTP, ND, PEG tube is present : no suprapubic tenderness, no CVA tenderness MSK/Derm: no rashes, cyanosis Neuro: CN II-XII intact, no motor weakness, Psych: cooperative, euthymic mood, judgment and insight is intact Hospital course: Patient is a 63-year-old male with a past medical history of pulmonary fibrosis with chronic hypoxic respiratory failure on 5 L continuous home O2, history of cardiac arrest, history of shoulder surgery and spinal stenosis, chronic dysphagia with PEG tube and strict n.p.o., and previous history of alcohol abuse. He presented to the hospital on 04/24/2024 with increasing shortness of breathand productive cough. Vital signs upon arrival showed blood pressure 115/87, heart rate 111, respiratory rate 24, temp 97.1 F, and SpO2 of 100% on 10 L. EKG completed showing sinus tachycardia at 102 bpm with no significant T wave or ST abnormalities showing no signs of acute ischemia upon personal review and interpretation. Chest x-ray completed showing diffuse interstitial and patchy opacities. Labs were completed and reviewed. CBC was unremarkable. Coagulation profile normal findings. D-dimer was normal at 0.48. BMP showing high anion gap metabolic alkalosis with chloride of 88, bicarb of 37, and anion gap of 12 along with prerenal azotemia with BUN of 26.. Liver profile was unremarkable. Lactic acid was 1.2. Magnesium 1.9. Influenza A, influenza B, and RSV were negative. COVID PCR was positive. Patient was admitted under our services with consultation to pulmonology. Assessment and Plan of Care: Acute on chronic respiratory failure with hypoxia and hypercarbia secondary to below COVID-19 infection Pulmonary fibrosis with chronic hypoxic respiratory failure Hypochloremic metabolic alkalosis -Oxygenation to be administered and titrated as needed to maintain SPO2 equal to or greater than 90% -Telemetry monitoring. -Encourage Incentive Spirometry 10-15x hourly while awake -Ventolin inhaler 4 times daily and as needed for wheezing/shortness of breath. -Steroids: Decadron 10 mg daily (Day 4 of steroids) -Patient received 2 days of IV antibiotics with Zosyn. Procalcitonin was negative at 0.09 and Zosyn was discontinued. -Pulmonology following, reviewed documentation in chart. -DVT prophylaxis with Lovenox. -Strict Droplet plus Contact precautions Recurrent aspirations and chronic dysphagia with PEG tube dependence Severe protein calorie malnutrition -Aspiration precautions with head of bed elevated at all times. -Speech and language pathologist consulted for evaluation as patient reports his swallowing has improved and that he is able to take ice chips and popsicles at home -Patient is only able to tolerate 3 to 4 cans of tube feeding per day due to nausea and feeling overly full. Patient also has had significant weight loss and is not tolerating bolus feedings. -Consult placed to dietitian for evaluation of severe protein calorie malnutrition and management of PEG tube feedings. Constipation -Patient started on MiraLAX 17 g via PEG tube daily. -Constipation remains status post administration of lactulose, abdomen is soft and nondistended and nontender to palpation. Bowel sounds present. Order placed for Dulcolax suppository x 1 dose. -Monitor for resolution. CODE STATUS: Full code DVT prophylaxis: Lovenox Anticipated discharge date: Pending clinical course Anticipated discharge place: Pending clinical course Objective - Vital Signs Vital signs: Vital Signs Temp 98.6 F 04/28/24 07:26 Pulse 116 H 04/28/24 07:26 Resp 18 04/28/24 07:26 BP 98/61 04/28/24 07:26 Pulse Ox 95 04/28/24 13:00 FiO2 Intake & Output 04/27/24 04/28/24 04/28/24 18:59 06:59 18:59 Output Total 400 Balance -400 Weight 43.5 kg 43 kg Output: Urine 400 Other: Voiding Method Urinal External Catheter External Catheter # Voids 2 - Labs CBC & Chem 7: 04/28/24 07:27 04/28/24 07:27 Labs: Abnormal Lab Results - Last 24 Hours (Table) 04/28/24 04/28/24 Range/Units 07:27 07:27 WBC 12.0 H (3.8-10.6) k/uL RBC 3.13 L (4.30-5.90) m/uL Hgb 9.9 L (13.0-17.5) gm/dL Hct 33.9 L (39.0-53.0) % MCV 108.2 H (80.0-100.0) fL MCHC 29.1 L (31.0-37.0) g/dL Chloride 92 L (98-107) mmol/L Carbon Dioxide 49 H* (22-30) mmol/L BUN 22 H (9-20) mg/dL Creatinine 0.48 L (0.66-1.25) mg/dL Glucose 154 H (74-99) mg/dL Total Protein 6.0 L (6.3-8.2) g/dL Albumin 3.3 L (3.5-5.0) g/dL Microbiology - Last 24 Hours (Table) 04/24/24 16:00 Blood Culture - Preliminary Blood 04/24/24 16:15 Blood Culture - Preliminary Blood
[2024-04-28] MEDS: bisacodyL 10 MG SUPP RECTAL STA (14:35)
[2024-04-29] MEDS: ALPRAZolam 0.25 MG TAB PO PRN (00:03)
[2024-04-29 09:38] LABS: Basophils # (A) 0.02 X 10*3/uL (0.00-0.10); Basophils % (A) 0.2 %; Eosinophils # (A) 0.08 X 10*3/uL (0.04-0.35); Eosinophils % (A) 0.8 %; HCT 34.8 % (39.6-50.0); HGB 10.2 g/dL (13.0-17.0); Lymphocytes # (A) 1.78 X 10*3/uL (0.90-5.00); Lymphocytes % (A) 17.5 %; MCH 31.7 pg (27.0-32.0); MCHC 29.3 g/dL (32.0-37.0); MCV 108.1 FL (80.0-97.0); Mean Platelet Volume 11.9 FL (9.5-12.2); Monocytes # (A) 0.96 X 10*3/uL (0.20-1.00); Monocytes % (A) 9.4 %; NRBC Per 100 WBC 0 X 10*3/uL (0.00-0.01); Neutrophils # (A) 7.28 X 10*3/uL (1.80-7.70); Neutrophils % (A) 71.7 %; Platelet Count 190 X 10*3/uL (140-440); RBC 3.22 X 10*6/uL (4.40-5.60); RDW 12.6 % (11.5-14.5); WBC 10.16 X 10*3/uL (4.50-10.00)
[2024-04-29 09:41] LABS: BUN/Creat Ratio 51.25 Ratio (12.00-20.00); Blood Urea Nitrogen 20.5 mg/dL (9.0-27.0); Carbon Dioxide 44.4 mmol/L (21.6-31.8); Chloride 91 mmol/L (96-109); Glucose 119 mg/dL (70-110); Potassium 4.6 mmol/L (3.5-5.5); Sodium 140 mmol/L (135-145)
[2024-04-29 09:42] LABS: Calcium 8.9 mg/dL (8.7-10.3)
--- NOTE | 2024-04-29 09:54 | P.PN ---
Subjective Progress Note Date: 04/29/24 Patient is doing well today, no new complaints. Patient did have bowel movement yesterday after enema. Gen: In mild distress from dyspnea, cachectic elderly man HEENT: normocephalic, atraumatic, hearing acuity is intant, mucous membranes moist CVS: perfusing all extremities well, no pitting edema, Respiratory: Diffuse crackles, symmetric chest expansion, no accessory muscle use GI: soft, NTTP, ND, PEG tube is present : no suprapubic tenderness, no CVA tenderness MSK/Derm: no rashes, cyanosis Neuro: CN II-XII intact, no motor weakness, Psych: cooperative, euthymic mood, judgment and insight is intact Hospital course: Patient is a 63-year-old male with a past medical history of pulmonary fibrosis with chronic hypoxic respiratory failure on 5 L continuous home O2, history of cardiac arrest, history of shoulder surgery and spinal stenosis, chronic dysphagia with PEG tube and strict n.p.o., and previous history of alcohol abuse. He presented to the hospital on 04/24/2024 with increasing shortness of breathand productive cough. Vital signs upon arrival showed blood pressure 115/87, heart rate 111, respiratory rate 24, temp 97.1 F, and SpO2 of 100% on 10 L. EKG completed showing sinus tachycardia at 102 bpm with no significant T wave or ST abnormalities showing no signs of acute ischemia upon personal review and interpretation. Chest x-ray completed showing diffuse interstitial and patchy opacities. Labs were completed and reviewed. CBC was unremarkable. Coagulation profile normal findings. D-dimer was normal at 0.48. BMP showing high anion gap metabolic alkalosis with chloride of 88, bicarb of 37, and anion gap of 12 along with prerenal azotemia with BUN of 26.. Liver profile was unremarkable. Lactic acid was 1.2. Magnesium 1.9. Influenza A, influenza B, and RSV were negative. COVID PCR was positive. Patient was admitted under our services with consultation to pulmonology. Assessment and Plan of Care: Acute on chronic respiratory failure with hypoxia and hypercarbia secondary to below COVID-19 infection Pulmonary fibrosis with chronic hypoxic respiratory failure Hypochloremic metabolic alkalosis -Oxygenation to be administered and titrated as needed to maintain SPO2 equal to or greater than 90% -Telemetry monitoring. -Encourage Incentive Spirometry 10-15x hourly while awake -Ventolin inhaler 4 times daily and as needed for wheezing/shortness of breath. -Steroids: Decadron 10 mg daily (Day 5 of steroids) -Pulmonology following, reviewed documentation in chart. -DVT prophylaxis with Lovenox. -Strict Droplet plus Contact precautions Recurrent aspirations and chronic dysphagia with PEG tube dependence Severe protein calorie malnutrition -Aspiration precautions with head of bed elevated at all times. -Speech and language pathologist consulted for evaluation as patient reports his swallowing has improved and that he is able to take ice chips and popsicles at home -Patient is only able to tolerate 3 to 4 cans of tube feeding per day due to nausea and feeling overly full. Patient also has had significant weight loss an d is not tolerating bolus feedings. -Consult placed to dietitian for evaluation of severe protein calorie malnutrition and management of PEG tube feedings. Constipation -Patient started on MiraLAX 17 g via PEG tube daily. -Had 1 BM on 04/28 after enema -Monitor for resolution. CODE STATUS: Full code DVT prophylaxis: Lovenox Anticipated discharge date: Pending clinical course Anticipated discharge place: Pending clinical course Objective - Vital Signs Vital signs: Vital Signs Temp 97.6 F 04/29/24 07:05 Pulse 100 04/29/24 08:35 Resp 19 04/29/24 07:05 BP 97/58 04/29/24 07:05 Pulse Ox 100 04/29/24 07:05 FiO2 Intake & Output 04/28/24 04/29/24 04/29/24 18:59 06:59 18:59 Intake Total 1600 Output Total 600 Balance 1600 -600 Weight 44.5 kg Intake: IV 240 Sodium Chloride 0.9% 1, 240 000 ml @ 20 mls/hr IV . Q24H [facility] Rx#:[id number] Tube Feeding 660 Other 700 Output: Urine 600 Other: Voiding Method External Catheter External Catheter External Catheter - Labs CBC & Chem 7: 04/29/24 06:16 04/29/24 06:10 Labs: Abnormal Lab Results - Last 24 Hours (Table) 04/29/24 04/29/24 Range/Units 06:10 06:16 WBC 10.16 H (4.50-10.00) X 10*3/uL RBC 3.22 L (4.40-5.60) X 10*6/uL Hgb 10.2 L (13.0-17.0) g/dL Hct 34.8 L (39.6-50.0) % MCV 108.1 H (80.0-97.0) FL MCHC 29.3 L (32.0-37.0) g/dL Chloride 91 L (96-109) mmol/L Carbon Dioxide 44.4 A* (21.6-31.8) mmol/L Creatinine 0.4 L (0.6-1.5) mg/dL BUN/Creatinine Ratio 51.25 H (12.00-20.00) Ratio Glucose 119 H (70-110) mg/dL
--- NOTE | 2024-04-29 11:10 | P.PN ---
Subjective Progress Note Date: 04/29/24 Patient is a 63-year-old white male with past medical history significant for pulmonary fibrosis and restrictive lung disease, previous ventilator dependent respiratory failure, alcoholism, chronic dysphagia and PEG tube. Patient does follow in the pulmonary office with Dr. Nugent. He is maintained on Ofev. He has problems with chronic dysphagia, has had a PEG tube that was placed 12/26/2023. He has been treated in the past for aspiration pneumonia. Patient presents the emergency department yesterday afternoon complaining of worsening shortness of breath over the last couple weeks. States that he is at increased oxygen requirements. He is normally maintained on 3 to 4 L nasal cannula at h ome, had to increase this to 5 L. Stating his SpO2 was only 74% while at home. Of note, approximately 2 weeks ago, patient was having runny nose, sore throat, congested cough, chest tightness, and headache. Cough is different from baseline dry cough, and is now minimally productive with green phlegm. Denies fevers. His had tested positive for COVID a week prior. Patient did test positive with home test for COVID 19, this was approximately 2 weeks ago. He has not had any outpatient treatment or evaluation. States he has had 1 previous vaccination for COVID, but no booster injections. Reports previous COVID infection in 2021. A couple days ago, patient states that he aspirated on some water. Receives most of his nutrition through a PEG tube, but has been taking his Ofev orally. This reportedly cannot be crushed per veterinary dentist. On my evaluation, patient is currently in trauma bay 2. He is on 5 L/min nasal cannula. SpO2 is reading 98% on bedside monitor. This is an improvement, as the patient was previously on a 10 L nonrebreather. He does not appear to be in any respiratory distress. He is very frail and cachectic. Chest x-ray redemonstrates chronic diffuse interstitial densities with some possible superimposed patchy basilar opacities at the bases, difficult to exclude acute process. Likely chronic bibasilar scarring. Prominent air-filled bowel loops, similar to prior images. CBC unremarkable. No leukocytosis. D-dimer was low. CMP: Sodium 137, potassium 4.5, chloride 88, serum bicarb 37, BUN 26, creatinine 0.51, glucose 105. Lactic 1.2. LFTs unremarkable. Troponin less than 0.012. NT proBNP 1340. Patient did test positive for COVID 19 again via PCR in the emergency department. The patient is seen today April 26, 2024 in follow-up on the regular medical floor. He is currently resting comfortably in bed. Awake and alert in no acute distress. Feeling a bit better today compared to yesterday. He is maintaining O2 saturations in the 90s on 5 L/min per nasal cannula. He has been afebrile. Hemodynamically stable. Blood cultures pending. Calcitonin 0.09. He is continued on Symbicort, albuterol, Decadron. Antibiotics in the form of Zosyn. Lovenox for DVT prophylaxis. Normal saline at 75 MLS per hour. The patient is seen today April 27, 2024 in follow-up on the regular medical floor. He is currently resting fairly comfortably in bed. Awake and alert in no acute distress. Maintaining O2 saturations in the 90s on 5 L/min per nasal cannula. Earlier today he was found without his oxygen on his O2 sat had dropped into the 60s. He was educated regarding the importance of continuously wearing his oxygen. He remains on Symbicort, albuterol, Decadron. Lovenox for DVT prophylaxis. White count 10.5. Hemoglobin 10.5. Platelets 244. Sodium 140. Potassium 4.2. Bicarb 44. BUN 18. Creatinine 0.40. Glucose 138. The patient is seen today April 28, 2024 on the regular medical floor. He is awake and alert in no acute distress. Resting fairly comfortably in bed. He is maintaining O2 saturations in the 90s on 8 L high flow nasal cannula. White count 12.0. Hemoglobin 9.9. Platelets 226. Sodium 139. Potassium 4.3. Bicarb 49. BUN 22. Creatinine 0.48. Glucose 154. He is continued on Symbicort, albuterol HFA, Decadron. Normal saline at 75 MLS per hour. Remains on [facility] for nutritional support. The patient is seen today April 29, 2024 in follow-up on the regular medical floor. He is currently resting comfortably in bed. Awake and alert in no acute distress. He is currently down to 5 L high flow nasal cannula to maintain O2 saturations in the high 90s. He remains on Symbicort, albuterol, Decadron. Lovenox for DVT prophylaxis. He is continued on his home Ofev. White count 10.1. Hemoglobin 10.2. Platelets 190. Sodium 140. Potassium 4.6. Bicarb 44. BUN 21. Creatinine 0.4. Glucose 119. Continued on Jevity 1.5 with a goal of 53 mL/h. Blood cultures revealed no growth. Objective - Vital Signs Vital signs: Vital Signs Temp 97.6 F 04/29/24 07:05 Pulse 100 04/29/24 08:35 Resp 19 04/29/24 07:05 BP 97/58 04/29/24 07:05 Pulse Ox 100 04/29/24 07:05 FiO2 Intake & Output 04/28/24 04/29/24 04/29/24 18:59 06:59 18:59 Intake Total 1600 Output Total 600 Balance 1600 -600 Weight 44.5 kg Intake: IV 240 Sodium Chloride 0.9% 1, 240 000 ml @ 20 mls/hr IV . Q24H [facility] Rx#:[id number] Tube Feeding 660 Other 700 Output: Urine 600 Other: Voiding Method External Catheter External Catheter External Catheter - Exam GENERAL EXAM: Alert, frail 63-year-old male, on 5 L nasal cannula, comfortable in no apparent distress. HEAD: Normocephalic and atraumatic EYES: Normal reaction of pupils, equal size. NOSE: Clear with pink turbinates. THROAT: No erythema or exudates. NECK: No masses, no JVD. CHEST: No chest wall deformity. LUNGS: Equal air entry with Velcro crackles appreciated at the bases. CVS: S1 and S2 normal with no audible murmur, regular rhythm. No extra heart sounds ABDOMEN: No hepatosplenomegaly, active bowel sounds, no guarding or rigidity. PEG tube insertion site clean and dry. SPINE: No scoliosis or deformity SKIN: No rashes CENTRAL NERVOUS SYSTEM: No focal deficits, tone is normal in all 4 extremities. EXTREMITIES: There is no peripheral edema or cyanosis. Digital clubbing noted. Peripheral pulses are intact. - Labs CBC & Chem 7: 04/29/24 06:16 04/29/24 06:10 Labs: Abnormal Lab Results - Last 24 Hours (Table) 04/29/24 04/29/24 Range/Units 06:10 06:16 WBC 10.16 H (4.50-10.00) X 10*3/uL RBC 3.22 L (4.40-5.60) X 10*6/uL Hgb 10.2 L (13.0-17.0) g/dL Hct 34.8 L (39.6-50.0) % MCV 108.1 H (80.0-97.0) FL MCHC 29.3 L (32.0-37.0) g/dL Chloride 91 L (96-109) mmol/L Carbon Dioxide 44.4 A* (21.6-31.8) mmol/L Creatinine 0.4 L (0.6-1.5) mg/dL BUN/Creatinine Ratio 51.25 H (12.00-20.00) Ratio Glucose 119 H (70-110) mg/dL Assessment and Plan Assessment: Acute on chronic hypoxemic respiratory failure, likely multifactorial, secondary to a combination of acute COVID-19 infection, with possible COVID-19 pneumonia or aspiration pneumonitis difficult to exclude, there is underlying pulmonary fibrosis Interstitial pulmonary fibrosis, maintained on Ofev Chronic hypoxemic respiratory failure, normally on 5 L nasal cannula History of chronic dysphagia and previous aspiration pneumonia, status post PEG tube insertion 12/26/2023 Severe protein calorie malnutrition History of alcoholism Osteoarthritis Chronic back pain Plan: The patient was seen and evaluated Labs and medications reviewed Continue the current treatment plan Titrate the FiO2 as tolerated Plan is for home with home care at discharge I have personally seen and examined the patient, performed the documentation and the assessment and plan as written. Number of minutes spent on the visit: 10.
[2024-04-30] MEDS ORDERED: SODIUM CHLORIDE 0.9% 1,000 ML BAG ONE (00:01)
[2024-04-30] MEDS ORDERED: SYMBICORT 160-4.5 MCG INHALER INHALATION ONE (00:01)
[2024-04-30] MEDS ORDERED: ALBUTEROL HFA INHALER INHALATION ONE (00:01)
[2024-04-30 01:32] VITALS: BP 102/69; PULSE 95; RESP 20; TEMP 98.1
[2024-04-30] MEDS ORDERED: PANTOPRAZOLE 40 MG/10 ML VIAL ONE (08:08)
[2024-04-30] MEDS ORDERED: ENOXAPARIN 40 MG/0.4 ML SYRINGE SQ ONE (08:08)
[2024-04-30] MEDS ORDERED: polyethylene glycoL 3350 17 GM POWD.PACK ONE (08:08)
[2024-04-30] MEDS ORDERED: DEXAMETHASONE SOD PHOSPHATE 10 MG/ML 1 ML VIAL ONE (08:08)
[2024-04-30] MEDS ORDERED: ALPRAZolam 0.25 MG TAB ONE ×3 (08:08→20:15)
[2024-04-30] MEDS ORDERED: CITALOPRAM HYDROBROMIDE 20 MG TAB ONE (08:09)
[2024-04-30] MEDS ORDERED: MORPHINE CONC SOLN 10mg/0.5mL ORAL SYRG ONE ×3 (11:48→23:02)
[2024-04-30] MEDS ORDERED: MELATONIN 5 MG TABLET ONE (20:15)
[2024-05-01] MEDS ORDERED: SODIUM CHLORIDE 0.9% 1,000 ML BAG ONE (00:01)
[2024-05-01] MEDS ORDERED: ALBUTEROL HFA INHALER INHALATION ONE (00:01)
[2024-05-01] MEDS ORDERED: ALPRAZolam 0.25 MG TAB ONE ×3 (04:53→20:07)
[2024-05-01] MEDS ORDERED: MORPHINE CONC SOLN 10mg/0.5mL ORAL SYRG ONE ×4 (04:54→23:18)
[2024-05-01] MEDS ORDERED: polyethylene glycoL 3350 17 GM POWD.PACK ONE (08:23)
[2024-05-01] MEDS ORDERED: ENOXAPARIN 40 MG/0.4 ML SYRINGE SQ ONE (08:24)
[2024-05-01] MEDS ORDERED: PANTOPRAZOLE 40 MG/10 ML VIAL ONE (08:24)
[2024-05-01] MEDS ORDERED: DEXAMETHASONE SOD PHOSPHATE 10 MG/ML 1 ML VIAL ONE (08:24)
[2024-05-01] MEDS ORDERED: CITALOPRAM HYDROBROMIDE 20 MG TAB ONE (08:25)
[2024-05-01] MEDS ORDERED: MELATONIN 5 MG TABLET ONE (20:07)
[2024-05-02] MEDS ORDERED: ALPRAZolam 0.25 MG TAB ONE ×2 (04:39→10:38)
[2024-05-02] MEDS ORDERED: MORPHINE CONC SOLN 10mg/0.5mL ORAL SYRG ONE ×2 (05:17→10:38)
[2024-05-02] MEDS ORDERED: ALBUTEROL HFA INHALER INHALATION ONE (07:54)
[2024-05-02] MEDS ORDERED: SYMBICORT 160-4.5 MCG INHALER INHALATION ONE (07:55)
[2024-05-02] MEDS ORDERED: polyethylene glycoL 3350 17 GM POWD.PACK ONE (10:58)
[2024-05-02] MEDS ORDERED: PANTOPRAZOLE 40 MG/10 ML VIAL ONE (10:58)
[2024-05-02] MEDS ORDERED: CITALOPRAM HYDROBROMIDE 20 MG TAB ONE (10:59)
[2024-05-02] MEDS ORDERED: DEXAMETHASONE SOD PHOSPHATE 10 MG/ML 1 ML VIAL ONE (10:59)
[2024-05-02] MEDS ORDERED: ENOXAPARIN 40 MG/0.4 ML SYRINGE SQ ONE (10:59)
[2024-05-23 10:02] LABS: HGB 11.9 gm/dL (13.0-17.5); RBC 3.68 m/uL (4.30-5.90); WBC 10.9 k/uL (3.8-10.6)
[2024-05-23 10:03] LABS: Basophils % (A) 0 %; Eosinophils % (A) 2 %; HCT 38.1 % (39.0-53.0); Lymphocytes % (A) 14 %; MCH 32.3 pg (25.0-35.0); MCHC 31.1 g/dL (31.0-37.0); MCV 103.7 fL (80.0-100.0); Mean Platelet Volume 9.9; Monocytes % (A) 6 %; Neutrophils # (A) 8.3 k/uL (1.3-7.7); Neutrophils % (A) 76 %; Platelet Count 236 k/uL (150-450); RDW 12.9 % (11.5-15.5)
[2024-05-23 10:04] LABS: Eosinophils # (A) 0.2 k/uL (0-0.7); Lymphocytes # (A) 1.5 k/uL (1.0-4.8); Monocytes # (A) 0.7 k/uL (0-1.0)
== END 2024-05-02 16:32 | disposition home or self-care (01) | DRG 871 ==
LOC: EC 15:27 → 4SSUR 17:11
PROVIDERS: ADMIT Student in an Organized Health Care Education/Training Program; ATTEND Student in an Organized Health Care Education/Training Program
PROC: 3E0333Z Introduction of Anti-inflammatory into Peripheral Vein, Percutaneous Approach (ICD-10-PCS; principal; 2024-04-25)
DX: A41.89 Other specified sepsis (principal); E43 Unspecified severe protein-calorie malnutrition; J12.82 Pneumonia due to coronavirus disease 2019; U07.1 COVID-19; J96.21 Acute and chronic respiratory failure with hypoxia; J96.22 Acute and chronic respiratory failure with hypercapnia; E87.3 Alkalosis; E84.9 Cystic fibrosis, unspecified; Z68.1 Body mass index [BMI] 19.9 or less, adult; R64 Cachexia; Z66 Do not resuscitate; Z51.5 Encounter for palliative care; M41.9 Scoliosis, unspecified; G89.29 Other chronic pain; M19.90 Unspecified osteoarthritis, unspecified site; F10.20 Alcohol dependence, uncomplicated; R62.7 Adult failure to thrive; K59.00 Constipation, unspecified; F41.9 Anxiety disorder, unspecified; E86.0 Dehydration; J84.10 Pulmonary fibrosis, unspecified; R13.10 Dysphagia, unspecified; Z99.81 Dependence on supplemental oxygen; Z79.899 Other long term (current) drug therapy; Z79.52 Long term (current) use of systemic steroids; Z93.1 Gastrostomy status; Z86.74 Personal history of sudden cardiac arrest; Z86.16 Personal history of COVID-19; Z87.01 Personal history of pneumonia (recurrent)
CPT/HCPCS: 36415; 71045; 80048; 80053; 82533; 83605; 83735; 83880; 84145; 84484; 85025; 85027; 85379; 85610; 85730; 87040; 87636; 93005; 94640; 94760; 96365; 96366; 96372; 96375; 99291